=== PATIENT | female | born 1960 | race Caucasian/White ===

== ENCOUNTER → 2017-05-09 09:46 | Outpatient (CLI) | payer BC, MEDICARE, SELFPAY ==
[2017-05-09 10:09] LABS: Basophils # 0.1 K/mm3 (0-0.2); Basophils % 0.6 % (0.1-2.0); Eosinophils # 0.2 K/mm3 (0.0-0.4); Eosinophils % 1.8 % (0.1-12.0); Hematocrit 41.2 % (37.0-47.0); Hemoglobin 13.7 g/dL (12.2-16.2); Lymphocytes # 3.3 K/mm3 (0.7-4.5); Lymphocytes % 30.2 K/mm3 (10-50); Mean Corpuscular HGB Conc 33.3 g/dL (31.8-35.4); Mean Corpuscular Hemoglobin 31.1 pg (27.0-31.2); Mean Corpuscular Volume 93.6 fl (81-99); Monocytes # 0.3 K/mm3 (0.1-1.0); Monocytes % 3.1 % (1.7-9.3); Neutrophils % 64.4 % (37.0-80.0); Platelet Count 288 K/mm3 (142-424); Red Cell Distribution Width 12.1 % (11.5-17.5); White Blood Count 10.9 K/mm3 (4.8-10.8)
[2017-05-09 10:44] LABS: Hemoglobin A1C 11.6 % (0.0-7.0)
[2017-05-09 10:52] LABS: Alanine Aminotransferase 23 U/L (12-78); Albumin Level 3.7 gm/dL (3.4-5.0); Albumin/Globulin Ratio 1.3 (1.1-1.8); Alkaline Phosphatase 137 U/L (46-116); Anion Gap 13.7 mEq/L (5-15); Aspartate Amino Transferase 17 U/L (15-37); Bilirubin,Total 0.4 mg/dL (0.2-1.0); Blood Urea Nitrogen 12 mg/dL (7-18); Calcium 8.9 mg/dL (8.5-10.1); Carbon Dioxide 27 mmol/L (21.0-32.0); Chloride 100 mmol/L (98-107); Chol/HDL Ratio 2.7 (1-3.5); Cholesterol 142 mg/dL (140-200); Creatinine,Serum 0.66 mg/dL (0.55-1.02); Estimated Glomerular Filt Rate 93 ml/min (>60); GFR (African American) 112 ML/MIN (>60); Globulin 2.9 gm/dl (1.3-3.2); Glucose 266 mg/dL (74-106); HDL Cholesterol 52 mg/dL (29-89); LDL Cholesterol 59 mg/dL (0-130); Potassium 3.7 mmoL/L (3.5-5.1); Sodium 137 mmol/L (136-145); Total Protein,Serum 6.6 gm/dL (6.4-8.2); Triglycerides 155 mg/dL (30-200); VLDL Cholesterol 31 mg/dL (0-40)
== END ==
PROVIDERS: PCP Internal Medicine Adolescent Medicine; Visit Provider Internal Medicine Adolescent Medicine
DX: E78.5 Hyperlipidemia, unspecified (principal); I10 Essential (primary) hypertension; E11.9 Type 2 diabetes mellitus without complications
CPT/HCPCS: 36415; 80053; 80061; 83036; 85025

== ENCOUNTER → 2017-05-23 09:10 | Outpatient (CLI) | payer BC, MEDICARE, SELFPAY ==
--- NOTE | 2017-05-23 09:19 | US_ITS ---
US Arterial Ankle Brachial Ind INDICATION: Diabetes, smoker, hypertension, rest pain and claudication, lower extremity pain ORDERING PHYSICIAN: Tin Cutler MD PATIENT AGE: 57 years TECHNIQUE: Segmental pressures obtained of both right and left leg. These are compared to brachial blood pressure to yield index at each level sampled including summary CHE. The data sheets from the procedure are available in PACS FINDINGS Rest study only performed today No prior studies available for comparison. Blood pressures reported are in millimeters mercury. RIGHT LEG CHE = 0.8 Right TBI is 0.4. Brachial BP: 132 Thigh BP: 120 Calf BP: 140 Ankle PT: 118 Ankle DP : 121 Digit =59 LEFT LEG CHE = 0.9 Left TBI is 0.4 Brachial BPD: 144 Thigh BP: 114 Calf BP: 126 Ankle PT:129 Ankle DP: 132 Digit = 59 Pulses and waveforms: Diminished pulses with normal waveforms IMPRESSION: The right CHE is slightly low indicating mild atherosclerotic vascular disease. The right TBI is low at 0.4 indicating moderate small vessel disease Left ABIs lower limits of normal. The left TBI is low at 0.4 indicating moderate small vessel disease
== END ==
PROVIDERS: Family Provider Internal Medicine Adolescent Medicine; PCP Internal Medicine Adolescent Medicine; Visit Provider Internal Medicine Adolescent Medicine
DX: I73.9 Peripheral vascular disease, unspecified (principal)
CPT/HCPCS: 93922

== ENCOUNTER 2017-06-27 07:25 | Day surgery (SDC) | payer BC, SELFPAY ==
[2017-06-27] VITALS (13 sets, daily range): BP systolic 121–158; BP diastolic 47–85; PULSE 69–88; RESP 16–18; TEMP 36.6; O2SAT 92–97; BMI 23.3
--- NOTE | 2017-06-27 | IR_ITS ---
CARDIAC CATHETERIZATION DATE OF CATHETERIZATION:06/27/2017 8:24 AM PROCEDURES: 1. Left heart catheterization 2. Left ventriculogram 3. Selective coronary angiogram 4. Catheter placement in the left common iliac artery 5. Left common iliac artery angiogram with unilateral iliofemoral runoff to the left foot 6. Stent deployment in the distal left common iliac artery extending into the left external iliac artery 7. Post stent deployment left common and external iliac artery angiogram 8. Catheter placement in the right common iliac artery 9. Right common iliac artery unilateral angiogram with iliofemoral runoff to the right foot 10. Repositioning of the catheter in the distal abdominal aorta 11. Distal abdominal aortography INDICATION FOR TEST: 1. Angina pectoris class III and IV 2. [place] claudication class III 3. Abnormal CHE 4. Peripheral artery disease Informed consent was obtained prior to the procedure. COMPLICATIONS: None ESTIMATED BLOOD LOSS: Less than 10 ml. TECHNIQUE: One percent lidocaine used to anesthetize the right anterior aspect of the wrist. The right radial artery was accessed via the Seldinger technique. A 6 Vincentian sheath was placed in the right radial artery. 2.5 mg of verapamil, 800 mcg of nitroglycerin and 5000 U Heparin were given through the arterial sheath. The trap catheter was also used to perform left heart catheterization F ventriculogram and selective coronary angiogram. At the end of the diagnostic heart catheterization the catheter was then pulled back into the transverse aorta and a wire was advanced into the distal thoracic and abdominal aorta. A multipurpose 150 cm catheter was placed into the left common iliac artery and iliofemoral angiography was performed. An additional 2000 units of heparin was administered intravenously giving an ACT of 320 seconds. A 9 mm x 60 mm Belle pro self-expanding stent is placed in the left external iliac artery extending back into the left common iliac artery. An 8 mm x 40 mm balloon was deployed in the mid segment and proximal segment at 5 and 6 analia post dilating. Excellent angiographic results were obtained. The catheter was pulled back and distal abdominal aortography was performed. The catheter was then used to cannulate the right common iliac artery and right common iliac artery angiography with unilateral runoff to the right foot was performed. At the end of the procedure the apparatus was removed the sheath was removed good hemostasis was achieved using TR banding patient was transferred to the postop holding area in stable condition ANGIOGRAPHIC RESULTS: 1. The left main artery is normal 2. The left anterior descending artery has mild less than 10% luminal irregularities with mid vessel 20% stenoses 3. The circumflex artery is a nondominant vessel with mild 10% luminal irregularities 4. The right coronary artery is dominant and has a mid vessel 50% calcified concentric stenosis 5. The GOMEZ ventriculogram reveals normal 65% 6. The left ventricular end-diastolic pressure 10 mmHg 7. The left common iliac artery has a proximal tendon 20% stenoses with a distal 70% stenosis which extends into the proximal left external iliac artery. The left external iliac arteries distally normal. The left internal iliac artery has a proximal ostial 50-60% stenosis. The left common femoral artery is normal. The left profunda femoris artery is normal. The left superficial femoral artery has mild 10% stenoses with a 30% stenosis at the abductor canal. The left popliteal artery has mild 20% stenoses. There is three-vessel runoff below the knee on the left side\ 8. The right common iliac artery has ostial 10-20% stenoses. Very distally there is calcification which extends into the right external iliac arter
[2017-06-27 08:05] LABS: Basophils # 0.1 K/mm3 (0-0.2); Basophils % 0.6 % (0.1-2.0); Eosinophils # 0.2 K/mm3 (0.0-0.4); Eosinophils % 2.1 % (0.1-12.0); Hemoglobin 14.9 g/dL (12.2-16.2); Lymphocytes # 2.9 K/mm3 (0.7-4.5); Lymphocytes % 27.1 K/mm3 (10-50); Mean Corpuscular HGB Conc 33.2 g/dL (31.8-35.4); Mean Corpuscular Hemoglobin 31.5 pg (27.0-31.2); Mean Corpuscular Volume 95.1 fl (81-99); Mean Platelet Volume 7.3 fl (7.4-10.4); Monocytes # 0.4 K/mm3 (0.1-1.0); Monocytes % 4.1 % (1.7-9.3); Neutrophils # 7.1 K/mm3 (1.8-7.8); Neutrophils % 66.2 % (37.0-80.0); Platelet Count 335 K/mm3 (142-424); Red Blood Count 4.73 M/mm3 (4.20-5.40); White Blood Count 10.7 K/mm3 (4.8-10.8)
[2017-06-27 08:12] LABS: Anion Gap 12.9 mEq/L (5-15); Blood Urea Nitrogen 13 mg/dL (7-18); Carbon Dioxide 30 mmol/L (21.0-32.0); Chloride 100 mmol/L (98-107); Creatinine Clearance Estimated 81 mL/min (0-300); Creatinine,Serum 0.73 mg/dL (0.55-1.02); Estimated Glomerular Filt Rate 82 ml/min (>60); GFR (African American) 100 ML/MIN (>60); Glucose 205 mg/dL (74-106); Potassium 3.9 mmoL/L (3.5-5.1); Sodium 139 mmol/L (136-145)
[2017-06-27 10:52] LABS: CATHL Activated Clotting Time 320 SEC (74-125)
== END 2017-06-27 13:30 | disposition home or self-care (01) ==
LOC: CATHLAB 07:26
PROVIDERS: Family Provider Internal Medicine Adolescent Medicine; PCP Internal Medicine Adolescent Medicine; Visit Provider Internal Medicine
DX: I25.118 Atherosclerotic heart disease of native coronary artery with other forms of angina pectoris (principal); I70.223 Atherosclerosis of native arteries of extremities with rest pain, bilateral legs; I70.8 Atherosclerosis of other arteries; I10 Essential (primary) hypertension; E11.9 Type 2 diabetes mellitus without complications; Z82.49 Family history of ischemic heart disease and other diseases of the circulatory system; Z72.0 Tobacco use; I70.213 Atherosclerosis of native arteries of extremities with intermittent claudication, bilateral legs
CPT/HCPCS: 37221; 75716; 75736; 80048; 85025; 85347; 93458; 99152; 99153; C1725; C1769; C1876; J1644; Q9966; Q9967

== ENCOUNTER → 2017-07-01 09:13 | Outpatient (CLI) | payer BC, SELFPAY ==
--- NOTE | 2017-07-01 09:20 | CA_ITS ---
PROCEDURE: 2-D M-mode and color Doppler study INDICATIONS FOR THE TEST: Chest pain+ COPD Heart Murmur+ Tobacco Smoking+ Palpitations+ Fatigue+ Syncope Edema+ Hypertension+Diabetes Mellitus+ Rheumatic Fever SOB LANIER Obesity Hyperlipidemia+ Family History HD Additional History stents (legs) PATIENT INFORMATION HEIGHT: 63 WEIGHT: 131 GENDER: Female B/P: 126/52 2-D/M-MODE INTERPRETATION: 2-D MEASUREMENTS OBSERVED VALUES IN CMS Right Ventricular Dimension (RVDd) 1.2 Interventricular Septum (Thickness)(IVsd) 0.8 Left Ventricular Internal Dimensions(LVIDd) 4.2 Left Ventricular Posterior Wall (Thickness)(LVPWd) 0.8 Aortic Root 2.7 Aortic Cusp Separation 1.7 Left Atrial Dimensions (LAD) 2.9 2D 1. Left atrium is mildly enlarged, left ventricle is normal size, there is mild concentric left ventricular hypertrophy, visually estimated ejection fraction 55% with no obvious regional wall motion abnormality. 2. The right atrium and right ventricle are normal size and contractility. 3. The aortic valve is minimally thickened and fibrosed. 4. The mitral and tricuspid valve are grossly normal. 5. The pulmonic valve is poorly visualized 6. No significant pericardial effusion noted. DOPPLER INTERROGATION: Doppler interrogation of the aortic, mitral and tricuspid valvular presence of moderate aortic, mild mitral and tricuspid regurgitation, tricuspid and jet velocity insufficient for calculation of the right ventricular systolic pressure, grade 1 diastolic dysfunction seen with tissue Doppler evidence of raised left atrial pressure. CONCLUSION: 1. Mildly enlarged left atrium, normal left ventricular size, mild concentric left ventricular hypertrophy, visually estimated ejection fraction 55% with no obvious regional wall motion abnormality, grade 1 diastolic dysfunction seen with tissue Doppler evidence of raised left atrial pressure. 2. Moderate aortic, mild mitral and tricuspid regurgitation 3. No significant pericardial effusion noted.
== END ==
PROVIDERS: Family Provider Internal Medicine Adolescent Medicine; PCP Internal Medicine Adolescent Medicine; Visit Provider Internal Medicine
DX: I70.213 Atherosclerosis of native arteries of extremities with intermittent claudication, bilateral legs (principal); I65.23 Occlusion and stenosis of bilateral carotid arteries; I73.9 Peripheral vascular disease, unspecified; I20.9 Angina pectoris, unspecified
CPT/HCPCS: 93306

== ENCOUNTER → 2017-07-06 12:23 | Outpatient (CLI) | payer BC, SELFPAY ==
[2017-07-06 13:05] LABS: Anion Gap 13.6 mEq/L (5-15); Blood Urea Nitrogen 13 mg/dL (7-18); Carbon Dioxide 30 mmol/L (21.0-32.0); Chloride 101 mmol/L (98-107); Cholesterol 158 mg/dL (140-200); Creatinine,Serum 0.66 mg/dL (0.55-1.02); Estimated Glomerular Filt Rate 93 ml/min (>60); GFR (African American) 112 ML/MIN (>60); Glucose 134 mg/dL (74-106); HDL Cholesterol 40 mg/dL (29-89); LDL Cholesterol 74 mg/dL (0-130); Potassium 4.6 mmoL/L (3.5-5.1); Sodium 140 mmol/L (136-145); Triglycerides 219 mg/dL (30-200); VLDL Cholesterol 44 mg/dL (0-40)
[2017-07-06 13:25] LABS: Hemoglobin A1C 9.6 % (0.0-7.0)
== END ==
PROVIDERS: Visit Provider Internal Medicine Adolescent Medicine
DX: E11.9 Type 2 diabetes mellitus without complications (principal)
CPT/HCPCS: 36415; 80048; 80061; 83036

== ENCOUNTER → 2017-07-11 15:05 | Outpatient (CLI) | payer BC, MEDICARE, SELFPAY ==
--- NOTE | 2017-07-11 15:10 | CT_ITS ---
CT angio abdomen CLINICAL INDICATION: Abdominal pain with abdominal bruit ITS.REASON: rule out mesenteric ischemia, abdominal bruit ORDERING PHYSICIAN: Fred Yap MD PATIENT AGE: 57 years COMPARISON: None TECHNIQUE: Axial images obtained with sagittal and coronal reformats. All CT scans at the facility use one or more dose reduction, viz: automated exposure control; ma/kV adjustment per patient size (including targeted exams where dose is matched to indication; i.e. head); or iterative reconstruction technique. PROCEDURE: Oral Contrast: None IV Contrast: 100 mL of Isovue-370. FINDINGS: Angiographic findings: Atheromatous changes are present involving the abdominal aorta. No evidence of aneurysm. Moderate to high-grade stenosis involves the ostium of the celiac artery of approximately 70 % with mild poststenotic dilatation.. Severe stenosis involves the ostium of the superior mesenteric artery of 75 and 80%. Atheromatous plaque is present at the ostium of the intermesenteric artery with moderate to severe stenosis. There is a left external iliac artery stent present which is patent. Atheromatous changes along the iliac vessels which are fairly small. No obvious renal artery stenosis. No large collateral vessels are present within the mesentery's. Coronary artery calcifications are present. Nonvascular findings: The liver, spleen, right adrenal gland, and pancreas are unremarkable. There has been prior cholecystectomy with mild dilatation of the common bile duct at 9 mm which may be physiologic response to the previous cholecystectomy. There is a 1 cm nodule involving the left adrenal gland nonspecific. No intestinal obstruction or free air. No focal inflammatory change. The pelvis is not completely imaged. There is a moderate amount retained colonic feces. 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 There is an estimated 70% stenosis of the proximal celiac with poststenotic dilatation, and 75-80% stenosis of the ostium of the superior mesenteric artery.
== END ==
PROVIDERS: Family Provider Internal Medicine Adolescent Medicine; PCP Internal Medicine Adolescent Medicine; Visit Provider Internal Medicine
DX: R09.89 Other specified symptoms and signs involving the circulatory and respiratory systems (principal); I70.1 Atherosclerosis of renal artery; R63.4 Abnormal weight loss; I73.9 Peripheral vascular disease, unspecified; Z72.0 Tobacco use; I10 Essential (primary) hypertension; E78.4 Other hyperlipidemia; E11.9 Type 2 diabetes mellitus without complications
CPT/HCPCS: 74175; Q9967

== ENCOUNTER → 2017-12-26 13:52 | Outpatient (CLI) | payer BC, MEDICARE, SELFPAY ==
--- NOTE | 2017-12-26 13:57 | CA_ITS ---
PROCEDURE: 2-D M-mode and color Doppler study INDICATIONS FOR THE TEST: Chest pain COPD Heart Murmur Tobacco Smoking Palpitations Fatigue Syncope Edema+ Hypertension Diabetes Mellitus Rheumatic Fever SOB [place] Obesity Hyperlipidemia Family History HD Additional History PATIENT INFORMATION HEIGHT: 63 WEIGHT:134 GENDER: Female B/P:115/52 2-D/M-MODE INTERPRETATION: 2-D MEASUREMENTS OBSERVED VALUES IN CMS Right Ventricular Dimension (RVDd) 1.3 Interventricular Septum (Thickness)(IVsd) 0.7 Left Ventricular Internal Dimensions(LVIDd) 5.0 Left Ventricular Posterior Wall (Thickness)(LVPWd) 0.7 Aortic Root 2.6 Aortic Cusp Separation 1.6 Left Atrial Dimensions (LAD) 3.3 2D 1. Left atrium is qualitatively mildly enlarged, left ventricle is normal size, there is no concentric left ventricular hypertrophy present, visually estimated ejection fraction 55% with no regional wall motion abnormality. 2. The right atrium and right ventricle are normal size and contractility. 3. The aortic valve is thickened and calcified leaflet continue to display mobility. 4. The mitral and tricuspid valve are structurally normal. 5. The pulmonic valve is poorly visualized. 6. No significant pericardial effusion noted. DOPPLER INTERROGATION: Doppler interrogation of the aortic, mitral and tricuspid valvular presence of severe aortic, mild mitral and tricuspid regurgitation, tricuspid regurgitant jet velocity is insufficient for calculation of the right ventricular systolic pressure, diastolic parameters are inconclusive. CONCLUSION: 1. Mildly enlarged left atrium, normal left ventricular size, visually estimated ejection fraction 55% with no regional wall motion abnormality, diastolic parameters are inconclusive. 2. Thickened and calcified aortic valve without Doppler evidence of aortic stenosis there is likely severe aortic insufficiency, if clinically indicated transesophageal echocardiogram is recommended. 3. Mild mitral and tricuspid regurgitation 4. No significant pericardial effusion noted.
== END ==
PROVIDERS: Family Provider Internal Medicine Adolescent Medicine; PCP Internal Medicine Adolescent Medicine; Visit Provider Internal Medicine
DX: E11.9 Type 2 diabetes mellitus without complications (principal); E78.5 Hyperlipidemia, unspecified; I10 Essential (primary) hypertension; I25.10 Atherosclerotic heart disease of native coronary artery without angina pectoris; I35.1 Nonrheumatic aortic (valve) insufficiency; I70.1 Atherosclerosis of renal artery; I73.9 Peripheral vascular disease, unspecified; I77.4 Celiac artery compression syndrome; R00.0 Tachycardia, unspecified; R00.2 Palpitations; R09.89 Other specified symptoms and signs involving the circulatory and respiratory systems; R10.9 Unspecified abdominal pain; Z72.0 Tobacco use
CPT/HCPCS: 93306

== ENCOUNTER → 2018-06-27 16:01 | Outpatient (CLI) | payer MEDICARE, BC, SELFPAY ==
[2018-06-27 17:52] LABS: Hemoglobin A1C 6.5 % (0.0-7.0)
[2018-06-27 20:30] LABS: Alanine Aminotransferase 25 U/L (12-78); Albumin Level 4.4 gm/dL (3.4-5.0); Albumin/Globulin Ratio 1.5 (1.1-1.8); Alkaline Phosphatase 103 U/L (46-116); Aspartate Amino Transferase 17 U/L (15-37); Bilirubin,Total 0.4 mg/dL (0.2-1.0); Blood Urea Nitrogen 13 mg/dL (7-18); Calcium 9.1 mg/dL (8.5-10.1); Carbon Dioxide 26 mmol/L (21.0-32.0); Chloride 100 mmol/L (98-107); Chol/HDL Ratio 3.4 (1-3.5); Cholesterol 154 mg/dL (140-200); Creatinine,Serum 0.94 mg/dL (0.55-1.02); Estimated Glomerular Filt Rate 61 ml/min (>60); GFR (African American) 74 ML/MIN (>60); Glucose 93 mg/dL (74-106); HDL Cholesterol 45 mg/dL (29-89); LDL Cholesterol 73 mg/dL (0-130); Sodium 137 mmol/L (136-145); Total Protein,Serum 7.4 gm/dL (6.4-8.2); Triglycerides 180 mg/dL (30-200); VLDL Cholesterol 36 mg/dL (0-40)
== END ==
PROVIDERS: Visit Provider Internal Medicine Adolescent Medicine
DX: E11.9 Type 2 diabetes mellitus without complications (principal); I10 Essential (primary) hypertension; Z79.84 Long term (current) use of oral hypoglycemic drugs; F17.210 Nicotine dependence, cigarettes, uncomplicated
CPT/HCPCS: 36415; 80053; 80061; 83036

== ENCOUNTER → 2018-07-17 07:58 | Outpatient (CLI) | payer MEDICARE, BC, SELFPAY ==
--- NOTE | 2018-07-17 08:00 | CA_ITS ---
PROCEDURE: 2-D M-mode and color Doppler study INDICATIONS FOR THE TEST: Chest painX COPD Heart MurmurX Tobacco SmokingX PalpitationsX Fatigue Syncope Edema HypertensionXDiabetes MellitusX Rheumatic Fever SOB [place] Obesity HyperlipidemiaX Family History HD Additional History REILLY DONE 01/12/18 PATIENT INFORMATION HEIGHT: 63 WEIGHT:134 GENDER: Female B/P:139/65 2-D/M-MODE INTERPRETATION: 2-D MEASUREMENTS OBSERVED VALUES IN CMS Right Ventricular Dimension (RVDd) 1.4 Interventricular Septum (Thickness)(IVsd) .7 Left Ventricular Internal Dimensions(LVIDd) 5.1 Left Ventricular Posterior Wall (Thickness)(LVPWd) .9 Aortic Root 3.2 Aortic Cusp Separation 1.7 Left Atrial Dimensions (LAD) 2.8 2D 1. Left atrium is mildly enlarged, left ventricle is normal size, left ventricle wall thickness is upper normal, there is preserved left ventricular systolic function, visually estimated ejection fraction 55% with no regional wall motion abnormality. 2. The right atrium and right ventricle are normal size and contractility. 3. The aortic valve is trileaflet thickened and calcified leaflet continue to display mobility. 4. The mitral and tricuspid valvular grossly normal. 5. The pulmonic valve is poorly visualized. 6. No significant pericardial effusion noted. DOPPLER INTERROGATION: Doppler interrogation of the aortic, mitral and tricuspid valvular presence of moderate aortic, mild mitral and tricuspid regurgitation, tricuspid regurgitation jet velocity is inadequate for calculation of the right ventricular systolic pressure, grade 1 diastolic dysfunction seen without tissue Doppler evidence of raised left atrial pressure. CONCLUSION: 1. Mildly enlarged left atrium, normal left ventricular size, preserved left ventricular systolic function, visually estimated ejection fraction 55% with no regional wall motion abnormality, grade 1 diastolic dysfunction seen without tissue Doppler evidence of raised left atrial pressure. 2. Moderate aortic, mild mitral and tricuspid regurgitation 3. No significant pericardial effusion noted.
== END ==
PROVIDERS: PCP Internal Medicine Adolescent Medicine; Visit Provider Internal Medicine
DX: E11.9 Type 2 diabetes mellitus without complications (principal); I10 Essential (primary) hypertension; I20.8 Other forms of angina pectoris; I35.1 Nonrheumatic aortic (valve) insufficiency; I70.1 Atherosclerosis of renal artery; I73.9 Peripheral vascular disease, unspecified; I77.4 Celiac artery compression syndrome; R00.2 Palpitations; Z72.0 Tobacco use; E78.49 Other hyperlipidemia; Z79.84 Long term (current) use of oral hypoglycemic drugs
CPT/HCPCS: 93306

== ENCOUNTER → 2018-08-01 12:24 | Outpatient (CLI) | payer MEDICARE, BC, SELFPAY ==
--- NOTE | 2018-08-01 12:26 | CI_ITS ---
Cerebrovascular Exam Indications: 785.9 Bruit. IMPRESSIONS 1. The bilateral vertebral arteries are patent with normal antegrade flow. 2. Study suggests 70-99% stenosis involving the right internal carotid artery. 3. Study suggests 50-69% stenosis involving the left internal carotid artery. History: Risk factors: Hypertension. Hyperlipidemia. Carotid duplex study. Complete study and Doppler flow study including spectral analysis, color and anton scale imaging. Height: Height: 160cm. Height: 63in. Weight: Weight: 61.2kg. Weight: 134.7lb. Body mass index: BMI: 23.9kg/m^2. Body surface area: BSA: 1.66m^2. Location: Vascular laboratory. Patient status: Outpatient. CRITICAL FINDINGS - Reported to: Tasha Coelho - 08/01/2018 - 13:00 - 70-99% stenosis ANDRAE. Tables: Arterial flow: + +--------+--------+ Location V sys V ed + +--------+--------+ Right CCA - proximal 133cm/s 33.8cm/s + +--------+--------+ Right CCA - distal 107cm/s 22.8cm/s + +--------+--------+ Right ECA 193cm/s 15.7cm/s + +--------+--------+ Right ICA - proximal 361cm/s 103cm/s + +--------+--------+ Right ICA - mid 250cm/s 64.6cm/s + +--------+--------+ Right ICA - distal 187cm/s 57.6cm/s + +--------+--------+ Right vertebral 75.4cm/s 22.8cm/s + +--------+--------+ Left CCA - proximal 131cm/s 32.2cm/s + +--------+--------+ Left CCA - distal 156cm/s 34.6cm/s + +--------+--------+ Left ECA 301cm/s 33cm/s + +--------+--------+ Left ICA - proximal 332cm/s 72cm/s + +--------+--------+ Left ICA - mid 168cm/s 42.3cm/s + +--------+--------+ Left ICA - distal 81.9cm/s 30cm/s + +--------+--------+ Left vertebral 48.3cm/s 15.5cm/s + +--------+--------+ Velocity ratios: + + + + + + Right, V sys Right, V ed Left, V sys Left, V ed + + + + + + Max ICA/dist CCA 3.37 4.52 2.13 2.08 + + + + + + (Report amended ) Electronically signed by: Daniele Ocampo [id number]
== END ==
PROVIDERS: PCP Internal Medicine Adolescent Medicine; Visit Provider Nurse Practitioner Family
DX: R09.89 Other specified symptoms and signs involving the circulatory and respiratory systems (principal); I65.23 Occlusion and stenosis of bilateral carotid arteries
CPT/HCPCS: 93880

== ENCOUNTER 2018-08-04 08:11 | Day surgery (SDC) | payer MEDICARE, BC, SELFPAY ==
[2018-08-04] VITALS (15 sets, daily range): BP systolic 105–145; BP diastolic 46–73; PULSE 73–83; RESP 12–18; TEMP 36.9; O2SAT 93–99; BMI 23.9
--- NOTE | 2018-08-04 08:30 | IR_ITS ---
CARDIAC CATHETERIZATION DATE OF CATHETERIZATION:08/04/2018 10:55 AM PROCEDURES: Left heart catheterization Left ventriculogram Selective coronary angiographic Catheter placement in the right vertebral artery Right vertebral artery angiogram Catheter placement in the right common carotid artery Right internal carotid artery angiogram Right internal carotid artery intracerebral angiogram Catheter placement in the left common carotid artery Left internal carotid artery angiogram Left internal carotid artery intracerebral angiogram INDICATION FOR TEST: 1. Critical right internal carotid artery stenosis 2. Preoperative evaluation for carotid endarterectomy 3. Coronary artery disease 4. Angina pectoris Informed consent was obtained prior to the procedure. COMPLICATIONS: None ESTIMATED BLOOD LOSS: Less than 10 ml. TECHNIQUE: One percent lidocaine was used to anesthetize the right groin. The right femoral artery was accessed via the Seldinger technique. A 4-[place]izen [place] sheath was placed in the right femoral artery. A JL 4 JR4 catheter were used to perform left heart catheterization left ventriculogram and selective coronary angiogram. The JR4 catheter was used to cannulate each of the vertebral arteries and perform antegrade angiography. The same JR4 catheter was used to cannulate each carotid artery and perform internal carotid artery angiography as well as intracerebral carotid angiography. At the end of procedure the apparatus was removed the sheath was removed good hemostasis was achieved using manual pressure patient transferred the postop holding are stable condition ANGIOGRAPHIC RESULTS: The left main artery is normal The left anterior descending artery is normal in the proximal segment with mid vessel 30% stenoses along tortuous bend There is a nondominant vessel with very proximal 20-30% stenosis. The second obtuse marginal artery has proximal 40% stenosis There is a dominant vessel although small caliber. Proximally there are 20% stenoses within mid vessel 40-50% stenosis. The GOMEZ ventriculogram reveals normal ejection fraction estimated at 65% The left ventricular end-diastolic pressure is 10 mmHg The right vertebral artery is widely patent free of atherosclerosis and fuses into the basilar artery. The left vertebral artery is widely patent free of atherosclerotic disease and fuses into the basilar artery The right common carotid artery is widely patent as is the right external carotid artery The right internal carotid artery has a focal greater than 90% stenosis followed by 40% stenosis The right internal carotid artery cerebral angiogram demonstrates no atheromatous plaque or aneurysmal dilatation with normal venous drainage The left common carotid artery is widely patent as is the left external carotid artery The left internal carotid artery has 50% proximal very eccentric stenosis followed by a distal 40% stenosis The left internal carotid artery intracerebral angiogram demonstrates no atheromatous plaque or aneurysmal dilatation with normal venous drainage IMPRESSION: 1. Moderate coronary artery disease involving the right coronary artery as described above 2. Normal ejection fraction 3. Normal left ventricular end-diastolic pressure 4. Severe right internal carotid artery stenosis as described above 5. Moderate left internal carotid artery stenosis as described above 6. Note intracerebral atheromatous plaque or aneurysmal dilatation with normal venous drainage PLAN: Patient will be referred for surgical evaluation of carotid endarterectomy LDL less than 55 Patient is a low and acceptable risk from a cardiac standpoint to proceed with surgical carotid endarterectomy Avoidance of tobacco products Aggressive risk factor modification
[2018-08-04 09:01] LABS: Anion Gap 11.4 mEq/L (5-15); Blood Urea Nitrogen 13 mg/dL (7-18); Carbon Dioxide 28 mmol/L (21.0-32.0); Chloride 102 mmol/L (98-107); Creatinine Clearance Estimated 71 mL/min (50-200); Creatinine,Serum 0.84 mg/dL (0.55-1.02); Estimated Glomerular Filt Rate 70 ml/min (>60); GFR (African American) 85 ML/MIN (>60); Glucose 131 mg/dL (74-106); Potassium 4.4 mmoL/L (3.5-5.1); Sodium 137 mmol/L (136-145)
[2018-08-04 09:07] LABS: Basophils # 0.1 K/mm3 (0-0.2); Basophils % 0.8 % (0.1-2.0); Eosinophils # 0.2 K/mm3 (0.0-0.4); Eosinophils % 1.5 % (0.1-12.0); Hematocrit 39.3 % (37.0-47.0); Hemoglobin 13.1 g/dL (12.2-16.2); Lymphocytes # 3.8 K/mm3 (0.7-4.5); Lymphocytes % 34.7 % (10-50); Mean Corpuscular HGB Conc 33.4 g/dL (31.8-35.4); Mean Corpuscular Hemoglobin 31.2 pg (27.0-31.2); Mean Corpuscular Volume 93.3 fl (81-99); Mean Platelet Volume 6.8 fl (7.4-10.4); Monocytes # 0.5 K/mm3 (0.1-1.0); Monocytes % 4.3 % (1.7-9.3); Neutrophils # 6.4 K/mm3 (1.8-7.8); Neutrophils % 58.7 % (37.0-80.0); Platelet Count 298 K/mm3 (142-424); Red Cell Distribution Width 12.5 % (11.5-17.5); White Blood Count 10.9 K/mm3 (4.8-10.8)
== END 2018-08-04 14:06 | disposition home or self-care (01) ==
LOC: CATHLAB 08:13
PROVIDERS: PCP Internal Medicine Adolescent Medicine; Visit Provider Internal Medicine
DX: I65.23 Occlusion and stenosis of bilateral carotid arteries (principal); I25.118 Atherosclerotic heart disease of native coronary artery with other forms of angina pectoris; I11.0 Hypertensive heart disease with heart failure; I50.30 Unspecified diastolic (congestive) heart failure; Z72.0 Tobacco use; Z88.8 Allergy status to other drugs, medicaments and biological substances; Z82.49 Family history of ischemic heart disease and other diseases of the circulatory system; Z95.828 Presence of other vascular implants and grafts; I35.1 Nonrheumatic aortic (valve) insufficiency; I77.4 Celiac artery compression syndrome; E11.9 Type 2 diabetes mellitus without complications; Z79.84 Long term (current) use of oral hypoglycemic drugs; Z79.82 Long term (current) use of aspirin; Z79.899 Other long term (current) drug therapy
CPT/HCPCS: 36224; 36226; 80048; 85025; 93458; 99152; C1725; C1769; J1644; Q9967

== ENCOUNTER → 2018-10-24 09:22 | Outpatient (CLI) | payer MEDICARE, BC, SELFPAY ==
[2018-10-24 10:29] LABS: Alanine Aminotransferase 33 U/L (12-78); Albumin Level 3.8 gm/dL (3.4-5.0); Albumin/Globulin Ratio 1.2 (1.1-1.8); Alkaline Phosphatase 105 U/L (46-116); Anion Gap 10.8 mEq/L (5-15); Aspartate Amino Transferase 21 U/L (15-37); Bilirubin,Total 0.3 mg/dL (0.2-1.0); Blood Urea Nitrogen 13 mg/dL (7-18); Calcium 8.9 mg/dL (8.5-10.1); Carbon Dioxide 33 mmol/L (21.0-32.0); Chloride 99 mmol/L (98-107); Creatinine,Serum 0.92 mg/dL (0.55-1.02); Estimated Glomerular Filt Rate 63 ml/min (>60); GFR (African American) 76 ML/MIN (>60); Globulin 3.1 gm/dl (1.3-3.2); Glucose 115 mg/dL (74-106); Potassium 4.8 mmoL/L (3.5-5.1); Sodium 138 mmol/L (136-145); Total Protein,Serum 6.9 gm/dL (6.4-8.2)
[2018-10-24 11:59] LABS: Hemoglobin A1C 7.1 % (0.0-7.0)
== END ==
PROVIDERS: Visit Provider Internal Medicine Adolescent Medicine
DX: E11.9 Type 2 diabetes mellitus without complications (principal); Z79.84 Long term (current) use of oral hypoglycemic drugs
CPT/HCPCS: 36415; 80053; 83036; 84443

== ENCOUNTER → 2019-02-09 07:39 | Outpatient (CLI) | payer MEDICARE, BC, SELFPAY ==
--- NOTE | 2019-02-09 07:54 | CA_ITS ---
APPROVED REPORT Drapery Counselor: Natali Ibanez RVT Laterality: Bilateral Study Quality: Good Indications: Carotid stenosis Risk Factors Hypertension: Diabetes Surgery/Intervention Endarterectomy: right Doppler Spectral Velocity Analysis ECA (R) 169.00/22.60 cm/s ECA (L) 122.00/14.10 cm/s dICA (R) 124.00/32.30 cm/s dICA (L) 132.00/39.40 cm/s Oni (R) 135.00/27.50 cm/s Oni (L) 178.00/37.00 cm/s pICA (R) 145.00/29.90 cm/s pICA (L) 233.00/39.40 cm/s dCCA (R) 72.30/20.40 cm/s dCCA (L) 114.00/23.30 cm/s pCCA (R) 73.10/22.00 cm/s pCCA (L) 111.00/19.10 cm/s Vert (R) 71.10/13.70 cm/s Vert (L) 33.30/9.53 cm/s ICA/CCA 2.00 ICA/CCA 2.04 Findings Study suggests no stenosis of the right internal carotid artery, improved since recent right endardectomy. Study suggests 50-69% stenosis of the left internal carotid artery, unchanged from prior study 08/01/18. Antegrade flow seen bilateral vertebral arteries. Conclusion Study suggests no stenosis of the right internal carotid artery, improved since recent right endardectomy. Study suggests 50-69% stenosis of the left internal carotid artery, unchanged from prior study 08/01/18. Antegrade flow seen bilateral vertebral arteries. Electronically signed by : Daniele Ocampo MD 02/09/2019 18:02:11
== END ==
PROVIDERS: PCP Internal Medicine Adolescent Medicine; Visit Provider Urology
DX: R09.89 Other specified symptoms and signs involving the circulatory and respiratory systems (principal)
CPT/HCPCS: 93880

== ENCOUNTER → 2019-02-26 09:51 | Outpatient (CLI) | payer MEDICARE, BC, SELFPAY ==
[2019-02-26 11:07] LABS: Hemoglobin A1C 6.7 % (0.0-7.0)
[2019-02-26 12:09] LABS: Alanine Aminotransferase 17 U/L (12-78); Albumin Level 4.1 gm/dL (3.4-5.0); Albumin/Globulin Ratio 1.3 (1.1-1.8); Alkaline Phosphatase 82 U/L (46-116); Anion Gap 12.7 mEq/L (5-15); Aspartate Amino Transferase 17 U/L (15-37); Bilirubin,Total 0.3 mg/dL (0.2-1.0); Blood Urea Nitrogen 7 mg/dL (7-18); Calcium 9.3 mg/dL (8.5-10.1); Carbon Dioxide 29 mmol/L (21.0-32.0); Chloride 100 mmol/L (98-107); Creatinine,Serum 0.97 mg/dL (0.55-1.02); Estimated Glomerular Filt Rate 59 ml/min (>60); GFR (African American) 71 ML/MIN (>60); Globulin 3.1 gm/dl (1.3-3.2); Glucose 120 mg/dL (74-106); Potassium 4.7 mmoL/L (3.5-5.1); Sodium 137 mmol/L (136-145); Thyroid Stimulating Hormone 2.21 uIU/ml (0.358-3.740); Total Protein,Serum 7.2 gm/dL (6.4-8.2)
== END ==
PROVIDERS: Visit Provider Internal Medicine Adolescent Medicine
DX: I10 Essential (primary) hypertension (principal); Z79.899 Other long term (current) drug therapy
CPT/HCPCS: 36415; 80053; 83036; 84443

== ENCOUNTER → 2019-04-30 15:08 | Outpatient (CLI) | payer MEDICARE, BC, SELFPAY ==
--- NOTE | 2019-04-30 15:10 | MR_ITS ---
PROCEDURE: MR THORACIC SPINE WO CON CLINICAL INDICATION: LUMBAGO WITH SCIATICA, THORACIC SPINE PAIN Thoracic pain COMPARISON: No exams were available for comparisonRoutine multiplanar multi echo sequences are performed without gadolinium enhancement. FINDINGS: There is normal alignment. No acute fracture or dislocation. No bone marrow edema. Minimal bulging disc noted at T2-T3, T4-T5 T6-T7 and T10-T11. Bulging disc at T10-T11 is slightly eccentric to the right. There is mild multilevel disc desiccation with degenerative disc disease at T10-T11. No disc herniation canal stenosis or other significant anomaly is evident. IMPRESSION: Mild degenerative changes. No disc herniation or canal stenosis. Please see above for detail Dictated by: Daniele Ocampo MD 05/01/2019 12:40 Electronically signed by Daniele Ocampo MD in [place] 05/01/2019 12:40
--- NOTE | 2019-04-30 15:10 | MR_ITS ---
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 3-D MIP and myelographic images are also rendered and reviewed FINDINGS: There is normal alignment. The spinal cord ends at the T11-T12 region. There is degenerative disc disease at T10-T11. T11-T12: Unremarkable. T12-L1: Mild disc desiccation. L1-L2, L2-L3, L3-L4, and L4-5 have an unremarkable appearance. Mild degenerative disc disease at L5-S1 with minimal bulging disc. No disc herniation or canal stenosis with no significant change compared to the previous exam. IMPRESSION: Mild degenerative changes as described above. No canal stenosis or disc herniation with no significant change from the previous exam the Dictated by: Daniele Ocampo MD 05/01/2019 12:33 Electronically signed by Daniele Ocampo MD in [place] 05/01/2019 12:33
== END ==
PROVIDERS: PCP Internal Medicine Adolescent Medicine; Visit Provider Nurse Practitioner Family
DX: M54.42 Lumbago with sciatica, left side (principal); M54.41 Lumbago with sciatica, right side; M54.6 Pain in thoracic spine; G89.29 Other chronic pain; R29.898 Other symptoms and signs involving the musculoskeletal system; R29.6 Repeated falls
CPT/HCPCS: 72146; 72148; 76376

== ENCOUNTER → 2019-05-04 11:05 | Outpatient (CLI) | payer MEDICARE, BC, SELFPAY ==
[2019-05-04 13:30] LABS: Blood Urea Nitrogen 11 mg/dL (7-18); Creatinine,Serum 1.06 mg/dL (0.55-1.02); Estimated Glomerular Filt Rate 53 ml/min (>60); GFR (African American) 64 ML/MIN (>60)
== END ==
PROVIDERS: Visit Provider Nurse Practitioner Family
DX: E11.9 Type 2 diabetes mellitus without complications (principal); Z79.84 Long term (current) use of oral hypoglycemic drugs
CPT/HCPCS: 36415; 82565; 84520

== ENCOUNTER → 2019-05-07 10:03 | Outpatient (CLI) | payer MEDICARE, BC, SELFPAY ==
--- NOTE | 2019-05-07 10:06 | MR_ITS ---
PROCEDURE: MR HEAD/BRAIN WO/W CON CLINICAL INDICATION: WEAKNESS BOTH LEGS, MULTIPLE FALLS, PARESTHESIA COMPARISON: No exams were available for comparison TECHNIQUE: Routine multiplanar multisequence exam with without contrast was performed. 13 milliliters ProHance contrast administration was given FINDINGS: There are nonspecific scattered FLAIR/T2 hyperintensities nonenhancing in the bilateral cerebral white matter. Differential considerations would include small ambulatory care nurse vessel ischemic gliotic disease, demyelinating process such as multiple sclerosis, association with migraine headaches, or idiopathic cause. Normal flow voids are seen in both carotid arteries and in the basilar artery. There is no acute infarction intracranial hemorrhage mass mass effect extra-axial fluid collection or abnormal enhancement. There is nonspecific leftward deviation of the pituitary infundibulum. There is no pituitary lesion evident. Paranasal sinuses and mastoid air cells are normally aerated. For which mild old to moderate small ambulatory care nurse vessel ischemic gliotic disease is suspected. IMPRESSION: Numerous nonenhancing FLAIR/T2 hyperintensities bilateral cerebral white matter. Differential possibilities are described. Microvascular disease is favored. Dictated by: Wes Shaw 05/07/2019 13:13 Electronically signed by Wes Shaw in [place] 05/07/2019 13:13
--- NOTE | 2019-05-07 11:13 | HMH.ITSHM ---
Current Home Medications as stated by this patient Dilia Chester or hospital sales representative. []JANUVIA METFORMIN TRULICITY GABAPENTIN REQUIP ATORVASTATIN ASPIRIN LOSARTIN PLAVIX TRAZODONE CARVEDILOL HYDROCHLOROTHIAZIDE LINZESS OMEPRAZOLE ALBUTEROL BENADRYL FENTANYL PATCH
== END ==
PROVIDERS: PCP Internal Medicine Adolescent Medicine; Visit Provider Nurse Practitioner Family
DX: R29.898 Other symptoms and signs involving the musculoskeletal system (principal); R29.6 Repeated falls; R20.2 Paresthesia of skin
CPT/HCPCS: 70553; A9576

== ENCOUNTER → 2019-05-10 10:16 | Outpatient (CLI) | payer MEDICARE, BC, SELFPAY ==
--- NOTE | 2019-05-10 10:16 | US_ITS ---
APPROVED REPORT Exam Type: Lower Extremity Segmental Pressures Wiring Inspector: Sravani Aldana RDCS Indications Claudication: Rest Pain: PAD History of Smoking CAD STENTS IN LEFT LEG Pressures/Indices Right Indices Left Indices Brachial 151.00 mmHg Brachial 148.00 mmHg Low Thigh 124.00 mmHg 0.82 Low Thigh 143.00 mmHg 0.95 Calf 106.00 mmHg 0.70 Calf 124.00 mmHg 0.82 Ankle(PT) 102.00 mmHg 0.68 Ankle(PT) 128.00 mmHg 0.85 Ankle(DP) 88.00 mmHg 0.58 Ankle(DP) 95.00 mmHg 0.63 Digit 85.00 mmHg 0.56 Digit 80.00 mmHg 0.53 Post Exercise Pressures/Indices Right Left 0.70 CHE 0.90 Findings R CHE .7 R TBI .6 L CHE .9 L TBI .5 DIMINISHED PULSES DORSALIS PEDIS BILATERALLY WITH DIMINISHED WAVE FORM RIGHT DORSALIS PEDIS Conclusion R CHE .7 R TBI .6 L CHE .9 L TBI .5 DIMINISHED PULSES DORSALIS PEDIS BILATERALLY WITH DIMINISHED WAVE FORM RIGHT DORSALIS PEDIS Electronically signed by : Wes Shaw, 05/10/2019 18:18:25
--- NOTE | 2019-05-10 10:16 | CT_ITS ---
Procedure: CT ANGIO ABDOMEN CLINICAL HISTORY: celiac stent, due f/u COMPARISON: No exams were available for comparison TECHNIQUE: IV Contrast: 100ml Optiray 350 Axial images obtained with sagittal and coronal reformats. 3D reconstruction images were performed. All CT scans at the facility use one or more dose reduction, viz: automated exposure control, ma/kV adjustment per patient size (including targeted exams where dose is matched to indication, i.e. head), or iterative reconstruction technique. FINDINGS: There is widespread atherosclerotic disease. Multiple calcified atherosclerotic plaques are seen in the abdominal aorta iliac and mesenteric vessels. There is no evidence of abdominal aortic aneurysm or dissection. Widely patent single bilateral renal arteries are noted. There has been placement of celiac artery, superior mesenteric artery, and left common iliac-external iliac artery stent. The stents appear patent and there is good flow in the vessels distal to the stents. Decreased patency of the left common iliac artery proximal to the stent is noted with possibly hemodynamically significant to 50-75 percent stenosis. Less than 50 percent stenosis of the right common iliac artery is noted. Lung bases are clear. There is fatty infiltration of the liver status post cholecystectomy. There is a left adrenal gland nodule 1.2 centimeters. An incidental adenoma would be statistically most likely. A subcentimeter cortical cyst of the posterior cortex of the right kidney is noted. Heterogeneous enhancement pattern of the spleen is consistent with vascular perfusion phenomenon. Multiple nonspecific fluid-filled loops of small and large intestine are noted with no evidence of bowel obstruction. IMPRESSION: Patent celiac, superior mesenteric artery, and left iliac arterial stents. Short segment of stenosis of left common iliac artery proximal to the stent 50-75 percent. Dictated by: Wes Shaw 05/10/2019 13:56 Electronically signed by Wes Shaw in [facility] 05/10/2019 13:56
== END ==
PROVIDERS: PCP Internal Medicine Adolescent Medicine; Visit Provider Urology
DX: I73.9 Peripheral vascular disease, unspecified (principal); I25.10 Atherosclerotic heart disease of native coronary artery without angina pectoris; I77.4 Celiac artery compression syndrome
CPT/HCPCS: 74175; 93923; Q9967

== ENCOUNTER → 2019-10-05 10:20 | Outpatient (CLI) | payer MEDICARE, BC, SELFPAY ==
[2019-10-05 10:45] LABS: Basophils % 0.6 % (0.1-2.0); Eosinophils # 0.1 K/mm3 (0.0-0.4); Eosinophils % 1.3 % (0.1-12.0); Hematocrit 35.5 % (37.0-47.0); Lymphocytes # 2.1 K/mm3 (0.7-4.5); Lymphocytes % 27.2 % (10-50); Mean Corpuscular HGB Conc 33.8 g/dL (31.8-35.4); Mean Corpuscular Hemoglobin 31.4 pg (27.0-31.2); Mean Corpuscular Volume 92.8 fl (81-99); Mean Platelet Volume 7.5 fl (7.4-10.4); Monocytes # 0.3 K/mm3 (0.1-1.0); Monocytes % 3.9 % (1.7-9.3); Neutrophils # 5.3 K/mm3 (1.8-7.8); Neutrophils % 67.1 % (37.0-80.0); Platelet Count 289 K/mm3 (142-424); Red Blood Count 3.83 M/mm3 (4.20-5.40); Red Cell Distribution Width 12.6 % (11.5-17.5); White Blood Count 7.8 K/mm3 (4.8-10.8)
[2019-10-05 11:21] LABS: Hemoglobin A1C 6.8 % (4.0-6.0)
[2019-10-05 11:32] LABS: Alanine Aminotransferase 13 U/L (12-78); Albumin Level 4.9 g/dl (3.5-5.0); Albumin/Globulin Ratio 1.8 (1.1-1.8); Alkaline Phosphatase 86 U/L (38-126); Anion Gap 12.5 mEq/L (5-15); Aspartate Amino Transferase 25 U/L (14-36); Bilirubin,Total 0.5 mg/dl (0.2-1.3); Blood Urea Nitrogen 17 mg/dl (7-17); Calcium 10.2 mg/dl (8.4-10.2); Carbon Dioxide 36 mmol/L (22.0-30.0); Chloride 90 mmol/L (98-107); Chol/HDL Ratio 2.5 (1-3.5); Cholesterol 168 mg/dl (140-200); Estimated Glomerular Filt Rate 57 ml/min (>60); GFR (African American) 69 ML/MIN (>60); Globulin 2.7 g/dL (1.3-3.2); Glucose 131 mg/dl (74-100); HDL Cholesterol 68 mg/dl (40-60); Potassium 5.5 mmoL/L (3.5-5.1); Sodium 133 mmol/L (136-145); Total Protein,Serum 7.6 g/dl (6.3-8.2); Triglycerides 199 mg/dl (30-150); VLDL Cholesterol 40 mg/dL (0-40)
[2019-10-05 11:43] LABS: Direct LDL Cholesterol 76.38 mg/dL (100-129)
== END ==
PROVIDERS: Visit Provider Nurse Practitioner Family
DX: I25.10 Atherosclerotic heart disease of native coronary artery without angina pectoris (principal); I10 Essential (primary) hypertension; R82.90 Unspecified abnormal findings in urine; E11.9 Type 2 diabetes mellitus without complications; Z79.84 Long term (current) use of oral hypoglycemic drugs
CPT/HCPCS: 36415; 80053; 80061; 83036; 85025

== ENCOUNTER 2019-10-19 14:00 | Outpatient (RCR) | payer MEDICARE, BC, SELFPAY ==
--- NOTE | 2019-10-10 13:53 | HMH.PTOPEV ---
PT Outpatient Evaluation Rehab PT Outpatient Evaluation Start: 10/10/19 13:03 Freq: Status: Active Protocol: Document 10/10/19 13:34 MERCEDEZMARIKA (Rec: 10/10/19 13:52 CHIP [id number]) Electronically Signed By Juanito Ellsworth, PT 10/10/19 13:34 Outpatient Therapy Subjective History Subjective History Patient is a 59 year old female presenting to outpatient PT with reports of chronic LBP with BLE radicular symptoms to B ankles. Most recent imaging indicates mild DDD and minimal bulging at L5/ S1. Pt reports intermittent BLE radicular symptoms to B ankles. Pt reports hx of LBP for approx 10 years. Special tests indicate R anterior roatation of the innominant. Comorbidities include diabetes , HTN, HL, RLS, Fibromyalgia, OA and CV stents x 3. Chief Complaint Pain,Stiff,Paresthesia, Weakness Symptom Type Ache,Sharp,Burning Symptoms Relieved By Rest/Positioning,Prescription Meds Symptoms Aggravated By Standing,Physical Activity, Walking,Lifting Prior Functional Limitations Lifting,Housework,Sleeping, Standing,Recreation Activity, Walking,Bending/Stooping Current Functional Limitations Lifting,Housework,Sleeping, Standing,Recreation Activity, Walking,Bending/Stooping Symptom Description Constant but Variable Level of pain today (0-10) 6 Pain scale - at its best (0-10) 4 Pain scale - at its worst (0-10) 8 Lumbopelvic Eval Posture Thoracic Spine Posture Standing Position Increased Kyphosis Lumbar Spine Posture Standing Position Decreased Lordosis Palapation tenderness bilateral lumbar spinal tenderness Yes: 2/4 L3-S1 paraspinal tenderness Yes: 2/4 L3-S1 buttock tenderness Yes: L>R 3/4 Accessory Movement L3 bilateral L4 bilateral L5 bilateral S1 bilateral Range of Motion Lumbar Spine Active Flexion Range of 55 Motion (degrees) Lumbar Spine Active Extension Range of 15 Motion (degrees) Left Lumbar Spine Lateral Flexion Active 22 Range of Motion (degrees) Right Lumbar Spine Lateral Flexion 14 Active Range of Motion (d
== END 2019-10-19 14:05 | disposition home or self-care (01) ==
LOC: PT 14:00
PROVIDERS: PCP Internal Medicine Adolescent Medicine; Visit Provider Nurse Practitioner Family
DX: M54.5 Low back pain (principal)
CPT/HCPCS: 97163

== ENCOUNTER → 2019-12-05 07:18 | Outpatient (CLI) | payer MEDICARE, BC, SELFPAY ==
--- NOTE | 2019-12-05 07:18 | NM_ITS ---
APPROVED REPORT Exam: Nuclear Stress Test Indication: CAD, D.M., HYPERLIPIDEMIA, FORMER TOB USE, FM HX, C.P., SOB, FATIGUE Patient Location: Outpatient Stress Tech: Maria M Nava IN Tech:Rachele Brower, ARRT, RT (R)(N) Ht: 5 ft 4 in Wt: 147 lbs Bra Size: 36B HR: 71 bpm BP: 142/43 mmHg BSA: 1.72 m2 BMI: 25.2 History: CAD, D.M., HYPERLIPIDEMIA, FORMER TOB USE, FM HX, C.P., SOB, FATIGUE Procedure: Patient received a 0.4 mg of intravenous Lexiscan, resting heart rate 71 bpm, resting blood pressure 142/43 mmHg, with Lexiscan maximum heart rate achived was 90 bpm which is Less than 85 % of the maximum predicted heart rate and blood pressure was 187/65 mmHg. With Lexiscan, patient denied any complaint of chest pain. Electrocardiogram Resting electrocardiogram shows sinus rhythm, with Lexiscan there is less than 1.[address] segment depression noted from the baseline EKG. The EKG portion of the Lexiscan Myoview is nondiagnostic. Cardiac Stress and Resting SPECT Images: Cardiac Stress and Resting SPECT images were obtained using technetium 99m Myoview 32.5 mCi stress and 10.25 mCi at rest. Gated SPECT for the analysis of segmental wall motion and calculation of the ejection fraction also done. Cardiac stress and resting SPECT images show uniform myocardial activity without segmental perfusion abnormality, computer derived ejection fraction is over 65% with no regional wall motion abnormality, right ventricle is normal size and contractility. Conclusion: 1. The EKG portion of the Lexiscan Myoview is nondiagnostic. 2. No scintigraphic evidence of reversible ischemia seen, computer derived ejection fraction is over 65% with no regional wall motion abnormality, right ventricle is normal size and contractility. 3. Normal Lexiscan Myoview study. Electronically signed by : Devin Salcido, 12/05/2019 18:01:16
--- NOTE | 2019-12-05 07:20 | CA_ITS ---
APPROVED REPORT Retail Service Technician: Natali Ibanez RVT Laterality: Bilateral Study Quality: Good Indications: Carotid stenosis Risk Factors Hypertension: Smoking Doppler Spectral Velocity Analysis ECA (R) 33.90/0.00 cm/s ECA (L) 327.30/38.10 cm/s dICA (R) 156.50/33.70 cm/s dICA (L) 107.30/37.40 cm/s Oni (R) 161.00/30.90 cm/s Oni (L) 129.90/31.10 cm/s pICA (R) 198.00/46.40 cm/s pICA (L) 153.30/47.40 cm/s dCCA (R) 91.80/23.30 cm/s dCCA (L) 105.70/25.40 cm/s pCCA (R) 111.00/17.70 cm/s pCCA (L) 134.30/23.50 cm/s Vert (R) 76.20/12.00 cm/s Vert (L) 35.70/11.20 cm/s ICA/CCA 2.16 ICA/CCA 1.45 Findings Study suggests 20-49% stenosis of the right internal cartoid artery worsened from the 02/09/19 study. Study suggests 50-69% stenosis of the left internal cartoid artery u nchanged from the 02/09/19 study. Study suggests greater than 50% stenosis of the left external cartoid artery. Antegrade flow seen bilateral vertebral arteries. ? 3.7cm cystic lesion right neck. Conclusion Study suggests 20-49% stenosis of the right internal cartoid artery worsened from the 02/09/19 study. Study suggests 50-69% stenosis of the left internal cartoid artery u nchanged from the 02/09/19 study. Antegrade flow seen bilateral vertebral arteries. 3.7cm hypoechoic lesion right neck. Suggest CT without and with contrast for further evaluation Electronically signed by : Daniele Ocampo MD 12/05/2019 17:35:59
--- NOTE | 2019-12-05 07:20 | CA_ITS ---
APPROVED REPORT EXAM: Comprehensive 2D, Doppler, and color-flow Echocardiogram Graphic Design Intern: Mariely Do CRT Ht: 5 ft 3 in Wt: 135lbs BSA: 1.64 BP: 120/80 mmHg Indications: Chest Pain, Murmur, Shortness of Breath, Diabetes, Palpitations, CAD, HUMBERTO, [id number], SMOKER 2D Dimensions LVOT 1.99 cm (M/F) 1.5-2.5 M-Mode Dimensions RVDd 2.01 cm (0.9-2.6) LVDd 4.51 cm (3.5-5.7) LVDs 2.76 cm (3.5-5.7) IVSd 1.48 cm (0.6-1.1) PWd 0.38 cm (0.6-1.1) EF (Teich) 69.30% FS 38.80% EDV (Teich) 92.90 mL ESV (Teich) 28.50 mL LV Diastology E/A Ratio 0.69 Mitral Valve MV A Velocity 109.00 (40-130 cm/s) Left Ventricle Left atrium is mildly enlarged, left ventricle is normal size, mild concentric left ventricular hypertrophy, visually estimated ejection fraction 55% with no regional wall motion abnormality, grade 1 diastolic dysfunction seen without tissue Doppler evidence of raise left atrial pressure. Right Ventricle Right atrium right ventricular normal size and contractility. Aortic Valve Aortic valve is thickened and calcified, there is no aortic stenosis, there is moderate aortic insufficiency. Mitral Valve Mitral valve is grossly normal, there is mild mitral regurgitation. Tricuspid Valve Tricuspid valve is grossly normal, there is mild tricuspid regurgitation, tricuspid regurgitation jet velocity is inadequate for calculation of the right ventricular systolic pressure. Pulmonic Valve Pulmonic valve is poorly visualized. Great Vessels Aortic root is normal size. Pericardium No significant pericardial effusion noted. Conclusion 1. Mildly enlarged left atrium, normal left ventricular size, visually estimated ejection fraction 55% with no regional wall motion abnormality, grade 1 diastolic dysfunction seen without tissue Doppler evidence of raise left atrial pressure. 2. Thickened and calcified aortic valve without aortic stenosis, there is moderate aortic insufficiency. 3. Mild mitral and tricuspid regurgitation. 4. No significant pericardial effusion noted. Electronically signed by : Devin Salcido, 12/05/2019 18:24:52
--- NOTE | 2019-12-05 08:10 | HMH.ITSHM ---
Current Home Medications as stated by this patient Dilia Chester or b2b sales representative. []TRAZODONE SIMETHICONE ROPINIROLE OMEPRAZOLE MULTIVITAMIN METFORMIN ASA LOSARTAN LINACLOTIDE HCTZ GABAPENTIN DULOXETINE DULAGLUTIDE DIPHENHYDRAMINE CYCLOBENZAPRINE COENZYME CARVEDILOL CLOPIDOGREL CALCIUM ATORVASTATIN
== END ==
PROVIDERS: PCP Internal Medicine Adolescent Medicine; Visit Provider Nurse Practitioner Family
DX: E78.5 Hyperlipidemia, unspecified (principal); I10 Essential (primary) hypertension; I20.9 Angina pectoris, unspecified; I35.1 Nonrheumatic aortic (valve) insufficiency; I65.29 Occlusion and stenosis of unspecified carotid artery; I70.1 Atherosclerosis of renal artery; I73.9 Peripheral vascular disease, unspecified; I77.4 Celiac artery compression syndrome; Z72.0 Tobacco use; Z98.890 Other specified postprocedural states; R53.83 Other fatigue; R09.89 Other specified symptoms and signs involving the circulatory and respiratory systems
CPT/HCPCS: 78452; 93017; 93306; 93880; A9502; J2785

== ENCOUNTER → 2019-12-19 14:01 | Outpatient (CLI) | payer MEDICARE, BC, SELFPAY ==
--- NOTE | 2019-12-19 14:12 | CT_ITS ---
Procedure: CT ANGIO NECK CLINICAL HISTORY: CORBY carotid artery disease Hx corby, right side CAROTID US SHOWED 69% BLOCKAGE ON LEFT, 20-40% ON THE RIGHT COMPARISON: US CA CAROTID DUPLEX BI from 12/05/2019 TECHNIQUE: IV Contrast: 100ml Optiray 350 Axial images obtained with sagittal and coronal reformats. All CT scans at the facility use one or more dose reduction, viz: automated exposure control, ma/kV adjustment per patient size (including targeted exams where dose is matched to indication, i.e. head), or iterative reconstruction technique. FINDINGS: The aortic arch shows skin atheromatous changes with nonocclusive atheromatous changes the ostium of the great vessels. There is some calcific plaque involving the mid upper aspect of the common carotid artery without significant stenosis. A small web is present in the distal right common carotid with 20 percent stenosis. There is occlusion of the proximal aspect of the right external carotid artery. There has been a prior carotid endarterectomy on the right with no significant stenosis of the right internal carotid artery.. 20 percent narrowing of the ostium of the right vertebral artery. The right vertebral has an otherwise unremarkable appearance. The left common carotid artery is unremarkable in its proximal mid aspect. There is some calcific plaque in the mid to distal left common carotid artery. Calcific plaque is present in the left bulb and proximal left ICA causing 55 stenosis at the bulb. The left vertebral artery is severely narrowed at its ostium of approximately 66-70 percent. Atherosclerotic calcification involves the cavernous portion of the ICAs on both sides. On the ultrasound there was a hypoechoic area in the right aspect of the neck. This is present just anterior to the carotid artery measuring approximately falcon by 19 mm with low to I so density centrally and some peripheral increased density and may be due to seroma. Seroma. There are centrilobular emphysematous changes in the lung apices. Scattered small nodes are present in the neck IMPRESSION: 1. Status post right carotid endarterectomy with no significant stenotic lesion on the right. 2. Fifty-five% stenosis of the left carotid bulb due to calcific plaque 3. 70 percent stenosis of the ostium of the left vertebral artery 4. Hypodense area in the right neck anterior to the carotid possibly due to postsurgical seroma Dictated by: Daniele Ocampo MD 12/20/2019 12:38 Daniele Ocampo MD in [place] 12/20/2019 12:38
[2019-12-19 14:32] LABS: Blood Urea Nitrogen 13 mg/dl (7-17); Estimated Glomerular Filt Rate 64 ml/min (>60); GFR (African American) 78 ML/MIN (>60)
== END ==
PROVIDERS: PCP Internal Medicine Adolescent Medicine; Visit Provider Urology
DX: E78.5 Hyperlipidemia, unspecified (principal); I10 Essential (primary) hypertension; I20.9 Angina pectoris, unspecified; I35.1 Nonrheumatic aortic (valve) insufficiency; I70.1 Atherosclerosis of renal artery; I73.9 Peripheral vascular disease, unspecified; I77.4 Celiac artery compression syndrome; R53.83 Other fatigue; Z72.0 Tobacco use; Z98.890 Other specified postprocedural states; I65.23 Occlusion and stenosis of bilateral carotid arteries
CPT/HCPCS: 36415; 70498; 82565; 84520; Q9967

== ENCOUNTER → 2019-12-25 10:41 | Outpatient (CLI) | payer MEDICARE, BC, SELFPAY ==
[2019-12-25 11:10] LABS: Basophils % 0.5 % (0.1-2.0); Eosinophils # 0.1 K/mm3 (0.0-0.4); Hematocrit 32.9 % (37.0-47.0); Hemoglobin 11.2 g/dL (12.2-16.2); Lymphocytes # 2.1 K/mm3 (0.7-4.5); Lymphocytes % 31.4 % (10-50); Mean Corpuscular Volume 91.2 fl (81-99); Mean Platelet Volume 7.6 fl (7.4-10.4); Monocytes # 0.3 K/mm3 (0.1-1.0); Monocytes % 4.6 % (1.7-9.3); Neutrophils # 4.1 K/mm3 (1.8-7.8); Neutrophils % 61.4 % (37.0-80.0); Platelet Count 247 K/mm3 (142-424); Red Blood Count 3.61 M/mm3 (4.20-5.40); Red Cell Distribution Width 12.4 % (11.5-17.5); White Blood Count 6.7 K/mm3 (4.8-10.8)
[2019-12-25 12:02] LABS: Chloride 94 mmol/L (98-107); Potassium 4.1 mmoL/L (3.5-5.1); Sodium 136 mmol/L (136-145)
[2019-12-25 12:05] LABS: Anion Gap 14.1 mEq/L (5-15); Blood Urea Nitrogen 11 mg/dl (7-17); Calcium 9.4 mg/dl (8.4-10.2); Carbon Dioxide 32 mmol/L (22.0-30.0); Estimated Glomerular Filt Rate 57 ml/min (>60); GFR (African American) 69 ML/MIN (>60); Glucose 146 mg/dl (74-100)
[2019-12-25 12:18] LABS: Free T4 (Free Thyroxine) 1.16 ng/dl (0.78-2.19)
== END ==
PROVIDERS: Visit Provider Urology
DX: E78.5 Hyperlipidemia, unspecified (principal); I10 Essential (primary) hypertension; I25.10 Atherosclerotic heart disease of native coronary artery without angina pectoris; I35.1 Nonrheumatic aortic (valve) insufficiency; I65.29 Occlusion and stenosis of unspecified carotid artery; I70.1 Atherosclerosis of renal artery; I73.9 Peripheral vascular disease, unspecified; I77.4 Celiac artery compression syndrome; R53.83 Other fatigue; Z72.0 Tobacco use; Z98.890 Other specified postprocedural states
CPT/HCPCS: 36415; 80048; 84439; 84443; 85025

== ENCOUNTER 2020-04-06 15:56 | Emergency (ER) | payer MEDICARE, BC, SELFPAY ==
[2020-04-06 16:09] VITALS: BP 114/57; PULSE 83; RESP 18; TEMP 36.7; O2SAT 96; BMI 25.7
--- NOTE | 2020-04-06 16:13 | HMH.EDUTC ---
[facility] [place] Disposition Clinical Impression: Viral syndrome, Exposure to COVID-19 virus Disposition: Home, Self-Care Condition on Discharge: Good Instructions: DI for COVID-19 (Suspected or Confirmed ), Preventing the Spread of Coronavirus Discharge Instructions Additional Instructions: Drink plenty of fluids. Take tylenol for pain or fever. Return if you begin to have difficulty breathing. Follow up with your regular doctor. GO TO THE ER FOR ANY WORSENING SYMPTOMS Prescriptions: Benzonatate [Tessalon Perle 100mg Cap] 100 mg PO TIDP PRN #30 cap PRN Reason: Cough Transmission Status: Received by [id number] Azithromycin [Z-Bry 250mg Tab*] 250 mg PO UD DOSE PK #6 tab Transmission Status: Received by [id number] Referrals: Tin Cutler MD [Primary Care Provider] - Time of Disposition: 16:15 Medical Decision Making - Medical Records Medical records reviewed: No: I reviewed the patient's medical records. - Cory Inquiry Pt receiving controlled substance: No Vital Signs: 04/06/20 16:09 04/06/20 16:25 Temperature 98.0 F 98.0 F Temperature Source Oral Oral Pulse Rate 83 Pulse Rate [Radial] 83 Respiratory Rate 18 18 Blood Pressure 114/57 L Blood Pressure [Right Arm] 114/57 L Blood Pressure Mean [Right Arm] 76 Blood Pressure Source Automatic Cuff Blood Pressure Source [Right Arm] Automatic Cuff Blood Pressure Position Supine Blood Pressure Position [Right Arm] Sitting 02 Sat by Pulse Oximetry 96 Oxygen Delivery Method Room Air Room Air Orders (Tests/Meds): ORDERS Category Date Time Status Covid-19 Nasal PCR Sendout P&C Routine Lab 04/06/20 16:[address] [facility] [place] HPI - General Stated complaint: COVID test Time Seen by Provider: 04/06/20 16:13 Mode of Arrival: Ambulatory Source of Information: Patient Limitations: No Limitations Description of Symptoms (Recalled from Triage Doc. by RN): covid exposure, cough, body aches. HEENT Symptoms (Recalled from RN notes): Yes Resp Symptoms (Recalled from RN notes): No Skin Symptoms (Recalled from RN notes): No MS Symptoms (Recalled from RN notes): No Functional Status (Recalled from RN notes): wnl - History of Present Illness Provider Complaint: She states that for the past 3 days she has had a cough, body aches and fever. She states that she feels bad. She has been around someone that turned out to have covid last week. - Related Data Home Medications Medication Instructions Recorded Confirmed calcium carbonate 200 mg calcium 200 mg PO TID PRN tab 06/21/17 03/24/20 (500 mg) chewable tablet coenzyme Q10 100 mg capsule 100 mg PO BID 06/21/17 03/24/20 cyclobenzaprine 10 mg tablet 10 mg PO TID 06/21/17 03/24/20 diphenhydramine HCl 25 mg capsule 25 mg PO Q4-6H 06/21/17 03/24/20 lactobacillus combination no.9 4 4,000 mmu cells PO ONCE 06/21/17 03/24/20 billion cell capsule linaclotide 145 mcg capsule 145 mcg PO BID cap 06/21/17 03/24/20 metformin 1,000 mg tablet 1,000 mg PO BID 06/21/17 03/24/20 multivit with tab PO 06/21/17 03/24/20 emngklys-oalf-WO-lutein 8 mg iron-400 mcg-300 mcg tablet polyethylene glycol 3350 17 17 g PO DAILY g 06/21/17 03/24/20 gram/dose oral powder ropinirole 1 mg tablet 1 mg PO BID tab 06/21/17 03/24/20 simethicone 125 mg capsule 125 mg PO QHS PRN 06/21/17 03/24/20 trazodone 100 mg tablet 100 mg PO QHS 06/21/17 03/24/20 dulaglutide 0.75 mg/0.5 mL 0.75 mg SUB-Q QWEEK 07/12/17 03/24/20 subcutaneous pen injector fenugreek seed extract 500 mg 500 mg PO TID cap 08/09/17 03/24/20 capsule fentanyl 12 mcg/hr transdermal 1 patch TRANSDERMA Q72H 10/04/17 03/24/20 patch duloxetine 60 mg capsule,delayed 60 mg PO DAILY 02/07/19 03/24/20 release gabapentin 100 mg tablet 600 mg PO TID tab 05/02/19 03/24/20 citalopram 20 mg tablet 20 mg PO DAILY 03/24/20 03/24/20 Previous Rx's Medication Instructions Recorded omeprazole 40 mg capsule,delayed 40 mg PO DAILY #30 cap
[2020-04-06 16:25] VITALS: BP 114/57; PULSE 83; RESP 18; TEMP 36.7; O2SAT 96
[2020-04-08 12:44] LABS: Covid-19 Nasal PCR Sendout P&C NEGATIVE
== END 2020-04-06 16:26 | disposition home or self-care (01) ==
PROVIDERS: Emergency Provider Nurse Practitioner Family; PCP Internal Medicine Adolescent Medicine
DX: Z20.828 Contact with and (suspected) exposure to other viral communicable diseases (principal); B34.9 Viral infection, unspecified; I25.10 Atherosclerotic heart disease of native coronary artery without angina pectoris; E11.9 Type 2 diabetes mellitus without complications; E78.5 Hyperlipidemia, unspecified; I10 Essential (primary) hypertension; Z87.891 Personal history of nicotine dependence; Z79.899 Other long term (current) drug therapy
CPT/HCPCS: G0463; 99201; U0004

== ENCOUNTER → 2020-09-25 16:17 | Outpatient (CLI) | payer MEDICARE, BC, SELFPAY ==
[2020-09-25 16:59] LABS: Basophils % 0.5 % (0.1-2.0); Eosinophils # 0.2 K/mm3 (0.0-0.4); Eosinophils % 1.9 % (0.1-12.0); Hematocrit 34.9 % (37.0-47.0); Hemoglobin 10.9 g/dL (12.2-16.2); Lymphocytes # 2.4 K/mm3 (0.7-4.5); Lymphocytes % 25.3 % (10-50); Mean Corpuscular HGB Conc 31.3 g/dL (31.8-35.4); Mean Corpuscular Hemoglobin 27.8 pg (27.0-31.2); Mean Corpuscular Volume 88.9 fl (81-99); Mean Platelet Volume 7.1 fl (7.4-10.4); Monocytes # 0.4 K/mm3 (0.1-1.0); Monocytes % 4.5 % (1.7-9.3); Neutrophils # 6.3 K/mm3 (1.8-7.8); Neutrophils % 67.7 % (37.0-80.0); Platelet Count 303 K/mm3 (142-424); Red Blood Count 3.92 M/mm3 (4.20-5.40); Red Cell Distribution Width 12.9 % (11.5-17.5); White Blood Count 9.3 K/mm3 (4.8-10.8)
[2020-09-25 17:11] LABS: Hemoglobin A1C 7.2 % (4.0-6.0)
[2020-09-25 17:23] LABS: Alanine Aminotransferase 25 U/L (12-78); Albumin Level 4.8 g/dl (3.5-5.0); Albumin/Globulin Ratio 1.9 (1.1-1.8); Alkaline Phosphatase 93 U/L (38-126); Anion Gap 18.7 mEq/L (5-15); Aspartate Amino Transferase 35 U/L (14-36); Bilirubin,Total 0.5 mg/dl (0.2-1.3); Blood Urea Nitrogen 10 mg/dl (7-17); Calcium 9.4 mg/dl (8.4-10.2); Carbon Dioxide 30 mmol/L (22.0-30.0); Chloride 91 mmol/L (98-107); Chol/HDL Ratio 2.1 (1-3.5); Cholesterol 147 mg/dl (140-200); Estimated Glomerular Filt Rate 51 ml/min (>60); GFR (African American) 62 ML/MIN (>60); Globulin 2.5 g/dL (1.3-3.2); Glucose 167 mg/dl (74-100); HDL Cholesterol 70 mg/dl (40-60); Potassium 4.7 mmoL/L (3.5-5.1); Sodium 135 mmol/L (136-145); Total Protein,Serum 7.3 g/dl (6.3-8.2); Triglycerides 184 mg/dl (30-150); VLDL Cholesterol 37 mg/dL (0-40)
[2020-09-25 17:45] LABS: Direct LDL Cholesterol 53.09 mg/dL (100-129)
[2020-09-25 18:15] LABS: Vitamin B12 359 pg/mL (239-931)
[2020-09-25 19:03] LABS: Ferritin 12.4 ng/ml (11.1-264)
== END ==
PROVIDERS: Visit Provider Nurse Practitioner Family
DX: E11.8 Type 2 diabetes mellitus with unspecified complications (principal); I10 Essential (primary) hypertension; D64.9 Anemia, unspecified; Z79.84 Long term (current) use of oral hypoglycemic drugs
CPT/HCPCS: 36415; 80053; 80061; 82607; 82728; 83036; 85025

== ENCOUNTER → 2020-10-01 13:41 | Outpatient (CLI) | payer MEDICARE, BC, SELFPAY ==
--- NOTE | 2020-10-01 13:46 | CA_ITS ---
APPROVED REPORT Api Architect: MISTY Laterality: Bilateral Indications: corby Risk Factors Hypertension: Smoking Surgery/Intervention Endarterectomy: right Doppler Spectral Velocity Analysis ECA (R) 93.70/7.70 cm/s ECA (L) 397.20/33.30 cm/s dICA (R) 135.80/36.40 cm/s dICA (L) 121.20/32.00 cm/s Oni (R) 154.00/41.70 cm/s Oni (L) 207.40/47.00 cm/s pICA (R) 160.40/28.90 cm/s pICA (L) 353.60/46.10 cm/s dCCA (R) 113.30/21.40 cm/s dCCA (L) 97.30/25.70 cm/s pCCA (R) 100.50/22.50 cm/s pCCA (L) 132.60/21.40 cm/s Vert (R) 101.60/22.50 cm/s Vert (L) 59.70/13.50 cm/s ICA/CCA 1.42 ICA/CCA 3.63 Findings Duplex evaluation demonstrates stenosis of the right proximal internal carotid artery in the range of 20-49% (upper end of scale), unchanged since study 12/05/19. Duplex evaluation demonstrates stenosis of the left proximal internal carotid artery in the range of 50-69%(upper end of scale), unchanged since study 12/05/19. Moderate, heterogenous plaque seen in bilateral proximal and mid ICA's. Conclusion Duplex evaluation demonstrates stenosis of the right proximal internal carotid artery in the range of 20-49% (upper end of scale), unchanged since study 12/05/19. Duplex evaluation demonstrates stenosis of the left proximal internal carotid artery in the range of 50-69%(upper end of scale), unchanged since study 12/05/19. Moderate, heterogenous plaque seen in bilateral proximal and mid ICA's. Electronically signed by : Naveen Tate MD 10/02/2020 08:00:47
== END ==
PROVIDERS: PCP Internal Medicine Adolescent Medicine; Visit Provider Nurse Practitioner
DX: E11.9 Type 2 diabetes mellitus without complications (principal); E78.5 Hyperlipidemia, unspecified; I10 Essential (primary) hypertension; I20.8 Other forms of angina pectoris; I35.1 Nonrheumatic aortic (valve) insufficiency; I70.1 Atherosclerosis of renal artery; I73.9 Peripheral vascular disease, unspecified; I77.4 Celiac artery compression syndrome; R09.89 Other specified symptoms and signs involving the circulatory and respiratory systems; R10.9 Unspecified abdominal pain; Z72.0 Tobacco use; Z79.84 Long term (current) use of oral hypoglycemic drugs
CPT/HCPCS: 93880

== ENCOUNTER → 2020-10-20 13:01 | Outpatient (POV) | payer MEDICARE, BC, SELFPAY ==
[2020-10-20 13:35] VITALS: BP 134/60; PULSE 91; RESP 18; O2SAT 94; BMI 26.5
--- NOTE | 2020-10-20 14:11 | HMH.PMCON ---
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 We will schedule her for a lumbar epidural steroid injection at L4-L5. She has not had injections for some time. She is on Xarelto which is prescribed by Dr. Yap. We will for the patient to hold her anticoagulation therapy prior to the injection. She will continue with home stretching. She has tried physical therapy for greater than 6 weeks with no significant relief. She previously took ibuprofen which caused GI bleeding. Patient is also on Xarelto, contraindicated anti-inflammatories. She is interested in intrathecal therapy and was referred to the clinic today for possible intrathecal therapy. We had a long discussion concerning intrathecal therapy and medications available for the device. She would like to do the psychological evaluation to determine if she is an appropriate candidate for intrathecal therapy. Patient has been advised she will need to weigh in on her fentanyl Duragesic patch prior to the trial. She is on 50 mcg an hour. Her Cory #[id number] was reviewed. Her morphine equivalent is 120. We will see the patient back after her injection at the L4-L5 area for reevaluation of symptoms. We will also discuss her psychological evaluation at that time. Risks and benefits of the procedure have been explained to the patient. Patient would like to proceed with the procedure. Possible side effects of corticosteroids have been discussed with the patient. Patient has been instructed to contact the clinic with any concerns before the next appointment. Dr. Velasquez has reviewed this note and agrees with this plan of care. This note was dictated using voice recognition software and make contain errors or omissions. HPI - Data of Consult Patient: new to practice Consult date: 10/20/20 Requesting Physician: Kirsty Malik APRN Primary Care Provider: Fiorella Nichols APRN - Consult Narrative Reason for consult: Neck pain, mid back pain, low back pain History of present illness: Ms. Chester is a 60 year old female who presents today for consultation for chronic neck, mid back, and low back pain. Patient says she has had this pain ongoing for nearly 10 years. Patient worked as a DIRECTOR OF WORKFORCE DEVELOPMENT for many years and says that she did do heavy lifting throughout the years of her job. The patient's pain is worse from the mid back to the low back area. She also complains of bilateral buttock, hips and leg pain. She reports a history of neuropathy bilateral feet. She does have paresthesia to her bilateral upper and lower extremities. She has been managed in the past with hydrocodone and oxycodone with no significant relief. She is currently taking gabapentin 600 mg 1 tablet p.o. 3 times daily and fentanyl Duragesic patch 50 mcg an hour. She was referred to us for possible intrathecal therapy. Patient has tried injective therapy in the past with no significant relief. She says she has not had any injections for quite a few years, however. She does say sitting gives her relief, while standing and walking worsen her pain. She reports prolonged sitting, however, makes her pain worse as well. She does have to reposition often. Patient does say lying flat does give her some relief. She says fentanyl Duragesic patches are no longer relieving her pain. She is on Xarelto prescribed by Dr. Yap following an endarterectomy. Patient does rate her pain today a 7 out of 10. CC:
--- NOTE | 2020-10-29 07:39 | PC.NURSE ---
Spoke with Dilia about holding her Xarelto 4 days prior to her scheduled lumbar injection on 11/05/20 after getting approval from Dr. Yap. She was agreeable.
== END ==
PROVIDERS: PCP Nurse Practitioner Family; Visit Provider Clinical Nurse Specialist Family Health
DX: M47.896 Other spondylosis, lumbar region (principal); M54.16 Radiculopathy, lumbar region; M43.16 Spondylolisthesis, lumbar region
CPT/HCPCS: 99202; G0463

== ENCOUNTER → 2020-10-21 12:40 | Outpatient (CLI) | payer MEDICARE, BC, SELFPAY ==
--- NOTE | 2020-10-21 12:44 | MM_ITS ---
PROCEDURE INFORMATION: Exam: MG Screening 3D Mammography Exam date and time: 10/21/2020 12:44 PM Age: 60 years old Clinical indication: Encounter for screening mammogram for malignant neoplasm of breast TECHNIQUE: Imaging protocol: Screening tomosynthesis and 2D mammography including computer-aided detection (CAD) when performed. COMPARISON: 1. MG DMSB DIG MAMM-SCREEN HANSEL 02/24/2016 10:18 AM 2. BL US BREAST-LT COMPLETE W/AXILLA 03/12/2016 11:03 AM FINDINGS: MAMMOGRAPHY: Breast composition: The breast tissue is composed of scattered areas of fibroglandular density. Mass: 0.4 cm mass in the anterior third of the left lower inner quadrant Architectural distortion: None. Calcifications: No suspicious calcifications. Asymmetric density: None. Skin thickening: None. Axillary adenopathy: None. IMPRESSION: Patient to be recalled for left breast ultrasound for further evaluation of a left breast mass. ASSESSMENT: BI-RADS Category 0: Incomplete- Need Additional Imaging Evaluation and/or Prior Mammograms for Comparison
== END ==
PROVIDERS: PCP Internal Medicine Adolescent Medicine; Visit Provider Nurse Practitioner Family
DX: Z12.31 Encounter for screening mammogram for malignant neoplasm of breast (principal)
CPT/HCPCS: 77063; 77067

== ENCOUNTER 2020-11-05 08:35 | Day surgery (SDC) | payer MEDICARE, BC, SELFPAY ==
[2020-11-05 08:59] VITALS: BP 122/56; PULSE 94; RESP 18; TEMP 36.6; O2SAT 96
[2020-11-05 10:13] VITALS: BP 123/55; PULSE 81; RESP 18; O2SAT 94
[2020-11-05 10:15] VITALS: BP 128/60; PULSE 87; RESP 18; O2SAT 95
--- NOTE | 2020-11-05 10:27 | P.PCN_ITS ---
- Procedure Date: 11/05/20 Time: 10:27 Anesthesiologist:: Pastora Lovell MD Complications:: None Pre-procedure Diagnosis:: Degenerative disc disease of lumbar spine, lumbar radiculopathy Post-procedure Diagnosis:: Same Indications for Procedure:: Is a very pleasant 60-year-old white female who presents today with chronic low back pain radiating into her legs to the above diagnosis. She has tried and failed conservative treatment including oral pain medication and home stretching program for greater than 6 weeks. She is currently taking gabapentin 600 mg 1 tablet 3 times a day and transdermal fentanyl patch 50 mcg an hour. She was referred to us for intrathecal therapy and reports she has not had any injections in a few years now. Of note, she is currently on Xarelto after u ndergoing an endarterectomy but has held this medication for the appropriate time. For this injection today. Plan for today is for the patient to undergo a lumbar epidural steroid injection at L4-L5 #1 today. Procedure Details:: Informed consent was obtained and the risk and benefits of the procedure was explained to the patient. The patient was taken to the procedure room. The patient was placed prone on the procedure table. The patient was prepped and draped in sterile fashion. C-arm fluoroscopy was used to view the lumbar spine. Skin and subcutaneous tissues were anesthetized using lidocaine. I placed an 18-gauge epidural needle and advanced into the L4-L5 interspace using fluoroscopic guidance and [id number] to air and saline. After confirmat ion of needle placement in the epidural space with dye I injected 1 mL of lidocaine 1.0% with Depo-Medrol 80 mg. Patient tolerated the procedure well with no complications. Plan and Disposition:: We will follow-up with this patient in 2 weeks. Will reevaluate pain symptoms at the time. If she gets short-term pain relief or very minimal pain relief with this injection we will consider other treatment modalities including intrathecal therapy for which she was originally referred to our clinic for.
[2020-11-05 10:50] VITALS: BP 143/63; PULSE 73; RESP 20; O2SAT 96
== END 2020-11-05 10:50 | disposition home or self-care (01) ==
LOC: SC.PAINP 08:41
PROVIDERS: PCP Nurse Practitioner Family; Visit Provider Anesthesiology Pain Medicine
DX: M51.16 Intervertebral disc disorders with radiculopathy, lumbar region (principal)
CPT/HCPCS: 62323; J1040; Q9966

== ENCOUNTER → 2020-11-12 14:40 | Outpatient (CLI) | payer MEDICARE, BC, SELFPAY ==
--- NOTE | 2020-11-12 14:46 | US_ITS ---
PROCEDURE: US BREAST LT COMPLETE CLINICAL INDICATION: ABN MAMM COMPARISON: US BL US BREAST-LT COMPLETE W/AXILLA from 03/12/2016 MG MM DIG SCREENING MAMM BI W/CAD from 10/21/2020 FINDINGS: At 4 o'clock there is a 3 mm cyst. At 6 o'clock there is a 3 mm cyst. A 4 mm hypoechoic nodules present at 9 o'clock and may represent a cyst. There are some low level echoes within the nodule however this could be related to the technique. There is enhanced through transmission of sound. Small nodes are present in the axilla measuring up to 2 by 1.2 cm. No suspicious mammographic nodules demonstrated. IMPRESSION: Mammographic abnormality may represent a 4 mm cyst. BI-RADS category 3 probably benign. Recommend six-month mammographic and sonographic follow-up Dictated by: Daniele Ocampo MD 12/02/2020 11:26 Daniele Ocampo MD in [place] 12/02/2020 11:26
== END ==
PROVIDERS: PCP Nurse Practitioner Family; Visit Provider Nurse Practitioner Family
DX: R92.8 Other abnormal and inconclusive findings on diagnostic imaging of breast (principal)
CPT/HCPCS: 76641

== ENCOUNTER → 2020-11-24 08:59 | Outpatient (POV) | payer MEDICARE, BC, SELFPAY ==
[2020-11-24 09:09] VITALS: BP 159/72; PULSE 92; RESP 18; O2SAT 95; BMI 25.8
--- NOTE | 2020-11-24 09:50 | HMH.PAINSOAP ---
[facility] Pain Management SOAP Note Subjective:: Patient is a 79-year-old white female who presents today for follow-up. Patient was previously seen in the clinic for degenerative disc disease lumbar spine and lumbar radicular symptoms. She underwent a lumbar epidural steroid injection for which she got approximately 6 to 7 days of relief. Patient says that she had 100% relief for 5 days, her pain returned on the sixth day. Patient has tried injective therapy in the past which has not given her any significant long-term relief. She is currently on fentanyl Duragesic patch as well as gabapentin. She is continuing with pain despite the medications. She has tried physical therapy for greater than 6 weeks in the past and continues with home stretching. Patient is on Xarelto and is unable to take anticoagulation therapy. This was the patient's L4-L5 number 1 injection within our clinic. Patient was sent for psychological evaluation to determine if she was an appropriate candidate for intrathecal therapy. Patient has undergone injections in the past which only gave her, at most, 2 weeks of relief. At the patient's last visit, she did discuss intrathecal therapy and medications available for treatment. She is willing to wean on her fentanyl Duragesic patch to try morphine in her intrathecal pump. She understands she will need to be completely weaned from the medication before trial. She is in agreement. She did undergo a psychological evaluation was considered an appropriate candidate for intrathecal therapy. Patient does rate her pain a 6 out of 10 today. Review of Systems General: No recent weight changes, no fever, no sleep disturbances Respiratory: No cough, no shortness of air, no recurring pulmonary infections Cardiovascular/peripheral vascular: No chest pain, no palpitations, no edema, no shortness of breath Gastrointestinal: No new onset incontinence, normal bowel movements reported Genitourinary: No new onset incontinence Musculoskeletal: Low back pain with radiation into bilateral lower extremities Psychiatric: [Normal mood/affect] Neurological: [Denies weakness in extremities], [denies balance issues] Objective:: Physical exam General: Alert and oriented x3, no acute distress, pleasant and cooperative, [on room air] Lungs: Respirations even and unlabored, symmetrical chest expansion Eyes: PERRL Musculoskeletal: Flexion and extension of [] lumbar [spine] somewhat guarded secondary to pain, strength in upper and lower extremities [5/5], [antalgic gait noted] Neurological: Speech clear, [test center administrator equal], no gross sensory deficit Assessment:: Degenerative disc disease lumbar spine with lumbar radiculopathy symptoms Plan:: We will schedule patient for the intrathecal pain pump trial with fentanyl. She plans to wean on her Duragesic patch of fentanyl. We discussed starting with morphine. She is in agreement. She says she has taken morphine in the past for pain which has been beneficial for her. She has tried and failed conservative therapies of physical therapy for more than 6 weeks and continued home stretching. She is unable to take anti-inflammatories due to Xarelto therapy. She has tried injective therapy in the past but has only gotten up to 2 weeks of relief. She is considered an appropriate candidate from psychological evaluation. We will schedule her for the trial and see her back afterwards for reevaluation of symptoms. She does understand she will need to hold her Xarelto prior to the trial. Risks and benefits of the procedure have been explained to the patient. Patient would like to proceed with the procedure. Patient has been instructed to contact the clinic with any concerns before the next appointment. Dr. Velasquez has reviewed this note and agrees with this plan of care. This note was dictated Assessment:: Degenerative disc disease lumbar radiculopathy symptoms [facility] History I have reviewed the patie
--- NOTE | 2020-11-25 14:37 | PC.NURSE ---
Patient was notified of Pain Pump Trial on 12/12/20 and told to stop bloodthinner 4 days prior on 12/08/20
== END ==
PROVIDERS: PCP Nurse Practitioner Family; Visit Provider Clinical Nurse Specialist Family Health
DX: M51.16 Intervertebral disc disorders with radiculopathy, lumbar region (principal)
CPT/HCPCS: 99212; G0463

== ENCOUNTER 2020-12-12 07:53 | Day surgery (SDC) | payer MEDICARE, BC, SELFPAY ==
[2020-12-12] VITALS (9 sets, daily range): BP systolic 124–166; BP diastolic 52–102; PULSE 79–87; RESP 18–20; TEMP 36.4; O2SAT 93–98; BMI 25.7
--- NOTE | 2020-12-12 09:12 | HMH.PMPROC ---
- Procedure Date: 12/12/20 Time: 09:12 Anesthesiologist:: Pastora Lovell MD Complications:: None Pre-procedure Diagnosis:: Degenerative disease of the lumbar spine lumbar spine, lumbar radiculopathy Post-procedure Diagnosis:: Same Indications for Procedure:: Patient is a very pleasant 60-year-old white female who presents today with chronic low back pain radiating into her legs related to the above diagnosis. She is previously undergone lumbar epidural steroid injections but unfortunately only got 100% relief for 5 days before the pain returned. She is currently on transdermal fentanyl patch as well as gabapentin. She is trialed and failed conservative treatment including oral pain medications and therapy for greater than 6 weeks. She has undergone a successful psychological evaluation is eager to proceed with the intrathecal trial. She has successfully weaned off her oral pain medications in anticipation for the intrathecal pump trial today. She is on Xarelto but has temporarily held this medication for the appropriate time. The plan for today is for the patient to undergo an intrathecal pump trial with fentanyl 25 mcg single shot bolus. Procedure Details:: Informed consent was obtained and the risk and benefits of the procedure was explained to the patient. The patient was taken to the procedure room and placed prone on the procedure table. Patient was prepped and draped in sterile fashion. C-arm fluoroscopy was used to view the lumbar spine. The skin and subcutaneous tissues were anesthetized using lidocaine. I placed a 18-gauge spinal needle into the L5-S1 interspace and advanced until clear CSF was obtained. After this intrathecal catheter was inserted and advanced very easily to the L1 vertebral body. The needle was withdrawn. We were able to freely withdraw clear CSF through the catheter. We then injected intrathecal fentanyl single shot bolus of 25 mcg followed by saline and followed by the previous CSF that was withdrawn. The needle and catheter were then removed and a Band-Aid was placed. Patient tolerated the procedure well with no complications. Plan and Disposition:: Follow-up with this patient in 2 weeks. Will reevaluate pain symptoms at that time.
--- NOTE | 2020-12-12 10:48 | PC.NURSE ---
0830-physical therapy at bedside for evaluation 0910-pt returned to bay, accompanied by nursing. denies pain. VSS, dressing C/D/I. pt breakfast tray set up 0925-pt resting in chair, watching TV. tolerated PO intake. VSS, no pain. dressing C/D/I 0940-pt resting in chair. VSS, denies pain. without needs or concerns at this time 0955-pt resting in chair. VSS, denies pain. without any needs or concerns at this time. 1010-pt resting in chair. VSS, denies pain. without needs or concerns at this time. 1016-Physical therapy at bedside for evaluation 1017-Dr. Lovell at bedside
== END 2020-12-12 10:25 | disposition home or self-care (01) ==
LOC: SC.PAINP 07:56
PROVIDERS: PCP Nurse Practitioner Family; Visit Provider Anesthesiology Pain Medicine
DX: M51.16 Intervertebral disc disorders with radiculopathy, lumbar region (principal); I25.10 Atherosclerotic heart disease of native coronary artery without angina pectoris; E78.5 Hyperlipidemia, unspecified; I10 Essential (primary) hypertension; J45.909 Unspecified asthma, uncomplicated; M79.18 Myalgia, other site; E11.9 Type 2 diabetes mellitus without complications; Z87.891 Personal history of nicotine dependence; I73.9 Peripheral vascular disease, unspecified; K21.9 Gastro-esophageal reflux disease without esophagitis; G43.909 Migraine, unspecified, not intractable, without status migrainosus; N28.9 Disorder of kidney and ureter, unspecified
CPT/HCPCS: 62323; 96365

== ENCOUNTER → 2020-12-30 09:55 | Outpatient (CLI) | payer MEDICARE, BC, SELFPAY ==
[2020-12-30 10:45] LABS: Basophils # 0.1 K/mm3 (0-0.2); Basophils % 0.7 % (0.1-2.0); Eosinophils # 0.1 K/mm3 (0.0-0.4); Eosinophils % 1.3 % (0.1-12.0); Hematocrit 34.9 % (37.0-47.0); Hemoglobin 11.3 g/dL (12.2-16.2); Lymphocytes # 1.7 K/mm3 (0.7-4.5); Lymphocytes % 19.6 % (10-50); Mean Corpuscular HGB Conc 32.3 g/dL (31.8-35.4); Mean Corpuscular Hemoglobin 28.9 pg (27.0-31.2); Mean Corpuscular Volume 89.3 fl (81-99); Mean Platelet Volume 7.2 fl (7.4-10.4); Monocytes # 0.4 K/mm3 (0.1-1.0); Monocytes % 4.2 % (1.7-9.3); Neutrophils # 6.2 K/mm3 (1.8-7.8); Neutrophils % 74.2 % (37.0-80.0); Platelet Count 328 K/mm3 (142-424); Red Blood Count 3.91 M/mm3 (4.20-5.40); Red Cell Distribution Width 13.7 % (11.5-17.5); White Blood Count 8.4 K/mm3 (4.8-10.8)
[2020-12-30 11:18] LABS: Amphetamine/Metha Screen,Urine Negative ng/ml (<1000)
[2020-12-30 11:19] LABS: Barbiturates Screen,Urine Negative ng/ml (<200)
[2020-12-30 11:20] LABS: Benzodiazepines Screen,Urine Negative ng/ml (<200); Cannabinoid Screen,Urine Negative ng/ml (<50)
[2020-12-30 11:21] LABS: Cocaine Screen,Urine Negative ng/ml (<300)
[2020-12-30 11:22] LABS: Methadone Screen,Urine Negative ng/ml (<300); Opiate Screen,Urine Negative ng/ml (<300)
[2020-12-30 11:23] LABS: Phencyclidine Screen,Urine Negative ng/ml (<25)
[2020-12-30 12:32] LABS: Anion Gap 14.3 mEq/L (5-15); Blood Urea Nitrogen 9 mg/dl (7-17); Calcium 9.4 mg/dl (8.4-10.2); Carbon Dioxide 32 mmol/L (22.0-30.0); Chloride 90 mmol/L (98-107); Estimated Glomerular Filt Rate 73 ml/min (>60); GFR (African American) 89 ML/MIN (>60); Glucose 107 mg/dl (74-100); Potassium 4.3 mmoL/L (3.5-5.1); Sodium 132 mmol/L (136-145)
== END ==
PROVIDERS: Visit Provider Anesthesiology
DX: Z01.812 Encounter for preprocedural laboratory examination (principal); Z20.822 Contact with and (suspected) exposure to COVID-19; M51.36 Other intervertebral disc degeneration, lumbar region
CPT/HCPCS: 36415; 80048; 80305; 85025; C9803; U0003; U0005

== ENCOUNTER 2020-12-31 06:59 | Day surgery (SDC) | payer MEDICARE, BC, SELFPAY ==
[2020-12-29 14:53] VITALS: BMI 25.8
[2020-12-31 07:24] VITALS: BP 145/77; PULSE 91; RESP 18; TEMP 36.6; O2SAT 94
--- NOTE | 2020-12-31 10:08 | P.PN_ITS ---
[facility] Anesthesia Checklist - Patient Identification Patient Identification: Arm Band - Structural Data Admitted From: Home Planned Operative Procedure/s: Intrathecal Pain Pump Catheter and Generator Placement Consent for Planned Operative Procedure(s) Verified: Yes Verified Documents: Surgical Consent, History and Physical - NPO Status Verified Time NPO: 00:00 - Additional verifications Anesthesia Reactions: No Hx Blood Transfusions: No Blood Transfusion Reaction: No - Airway Assessment C-Spine Mobility Assessed: Yes (mp2) TMJ Mobility Assessed: Yes Dentition: Good Dentition - Neurological Assessment Level of Consciousness: Awake, Alert - Anesthesia Plan Anesthesia Risk discussed: Yes Anesthesia Plan: Verified ASA Class: III Anesthesia Type: MAC [facility] History I have reviewed the patient's past medical history: Yes Medical History: Reports:: Asthma, Carotid Stenosis, Coronary Artery Disease, Diabetes Mellitus Type 2, Heart Murmur, Hyperlipidemia, Hypertension, Pa lpitations, Peripheral Artery Disease, Peripheral Vascular Disease, Valvular Heart Disease Denies:: Cancer, Diabetes Mellitus Type 1, Internal Pacemaker, Lung Disease, MRSA, Seizures *Have you ever received a pneumonia vaccine?: No *Have you received a flu vaccine this season?: No Other Medical History: Reports: Fibromyalgia. Denies: Blood Transfusion Reaction Anesthesia experience/problems:: nac Laterality Cases: Right: Carotid Endarterectomy, Carpal Tunnel Release, B ilateral: Tonsillectomy Other Surgeries: Yes: Angiogram, Appendectomy, Cardiac Catheterization, Cholecystectomy, Coronary Stent (3 stents total ), Dilation and Curettage, Hyst erectomy-Partial, Tubal Ligation, Other (endartectomy right). No: Pacemaker Amputation: No Fractures: No - *Social History Last grade of school completed: GED Smoking Status: Former smoker Tobacco Type: cigarettes # Packs/Day (cigarettes): 1 Alcohol Intake: never Alcohol Intake Frequency:: other Substance Use Type: denies use *Occupational Status:: disabled Housing: house Household Members: spouse, family *Travel in the last 8 weeks: None Family Hx:: Coronary Artery Disease, Heart Attack, Cancer
--- NOTE | 2020-12-31 10:24 | HMH.OPNOTE ---
Date of procedure: 12/31/20 Pre-op Diagnosis:: Degenerative disc disease of lumbar spine with lumbar radiculopathy symptoms Post-op Diagnosis:: Same Procedure performed:: Permanent placement intrathecal catheter for permanent placement of intrathecal pain pump Surgeon:: Clint Velasquez MD FISH CONSERVATIONIST:: Todd Oconnell Anesthesia: GETA Estimated blood loss (mL): 5 Clinical Note:: Patient is a pleasant 60-year-old white female who we are treating for low back pain with lumbar radiculopathy symptoms. She is failed all previous conservative treatments including physical therapy, injections, oral medications and she is not a surgical candidate. She has had a successful psychological evaluation and a successful intrathecal pump trial. She presents for permanent placement of her intrathecal pain pump today. Operative findings:: None Operative note:: Informed consent was obtained the risk and benefits of the procedure were explained to the patient. The patient was taken the operating room placed prone on the procedure table. She was prepped and draped in sterile fashion. C-arm fluoroscopy was used to view the lumbar spine. The skin and subcutaneous tissues adjacent to the L4-5 space was anesthetized using lidocaine. I made an incision and dissected down to the lumbar paraspinous fascia. I placed a 15-gauge spinal needle and advanced into the L4-5 interspace until clear CSF was obtained. After this, intrathecal catheter was inserted and advanced very easily to the T12 vertebral body. The catheter secured to the fascia with 2 anchoring devices and 2-0 Prolene. I prepared the pump with 20 mL of intrathecal morphine 5 mg/mL while Dr. Mullen prepared the pump pocket. I tunneled catheter from the back to the pump pocket and attached catheter to the pump. We were able to freely withdraw clear CSF through the side-port. The pump was placed in the pocket. Both incisions were irrigated with bacitracin solution. Both incisions were then closed with 2-0 Vicryl followed by 4-0 nylon. The wound VAC was placed over both incisions. The patient was placed also in an abdominal binder. The patient was taken recovery in stable condition. Patient tolerated procedure well with no complications. Pump was interrogated and started at 0.25 mg/day of intrathecal morphine. Patient was discharged home neurologically intact with good relief of pain symptoms. Plan and disposition: Follow-up with this patient in 1 week for wound check and adjustment. We will follow-up in 2 weeks for suture removal and adjustment again. Patient has any problems or questions she is to call us back in the pain clinic. Condition: stable Disposition: PACU Complications:: none
--- NOTE | 2020-12-31 10:27 | P.OP_ITS ---
Date of procedure: 12/31/20 Pre-op Diagnosis:: Generative disc disease of the lumbar spine with radiculopathy Post-op Diagnosis:: Same Procedure performed:: Placement of right pain pump generator Surgeon:: Dejan Mullen MD MATERIAL STRESS TESTER:: Douglas Nixon, Yoel Connors, Todd Oconnell, Da Santana, Anson Sandhu, Brett Ackerman, Other Anesthesia: MAC Estimated blood loss (mL): 5 Operative findings:: Not applicable Operative note:: Once adequate IV sedation was obtained by anesthesia the patient was placed prone on the operating table and her back and flank regions were prepped and draped in sterile fashion. Paraspinal incision made by Dr. Velasquez there which an intrathecal catheter was passed into the intrathecal space to the area desired by Dr. Lawrence. At this point a right flank incision was made orders made for pocket for placement of the reservoir. Both pockets irrigated with antibiotic solution.. Catheter passed in the paraspinal incision to the pocket incision utilized utilizing a tunneling device.. Catheter connected the generator which was placed in the pocket. CSF was aspirated from the generator noting patency of the system. Subcutaneous tissues closed with 2-0 Vicryl. Skin closed arm stitches of 4-0 nylon. Wound VAC dressings and a binder applied to the wound. The patient tolerated procedure well and was taken to the recovery room in stable condition. Upon recovery the patient be discharged home will follow up in 1 week remove the wound VAC system in 2 weeks remove the sutures. Antibiotics x1 week per protocol. The patient tolerated the procedure well Condition: stable Disposition: PACU Complications:: None
[2020-12-31 10:32] VITALS: BP 150/65; PULSE 93; RESP 18; TEMP 36.4; O2SAT 92
[2020-12-31 10:47] VITALS: BP 124/78; PULSE 85; RESP 18; TEMP 36.1; O2SAT 93
[2020-12-31 11:02] VITALS: BP 160/58; PULSE 85; RESP 18; O2SAT 92
[2020-12-31 11:17] VITALS: BP 131/71; PULSE 85; RESP 18; O2SAT 92
[2020-12-31 11:32] VITALS: BP 139/79; PULSE 86; RESP 18; O2SAT 93
[2021-01-01 07:48] LABS: POC Glucose,Bedside 120 (70-110)
== END 2020-12-31 11:40 | disposition home or self-care (01) ==
LOC: OR 07:01
PROVIDERS: PCP Internal Medicine Adolescent Medicine; Visit Provider Anesthesiology
DX: M51.16 Intervertebral disc disorders with radiculopathy, lumbar region (principal); I65.29 Occlusion and stenosis of unspecified carotid artery; I73.9 Peripheral vascular disease, unspecified; Z82.49 Family history of ischemic heart disease and other diseases of the circulatory system; I10 Essential (primary) hypertension; E78.5 Hyperlipidemia, unspecified; Z88.6 Allergy status to analgesic agent; Z79.899 Other long term (current) drug therapy
CPT/HCPCS: 62350; 62362; 82962; 96374; C1755; C1772; J3370

== ENCOUNTER → 2021-01-06 08:31 | Outpatient (POV) | payer MEDICARE, BC, SELFPAY ==
[2021-01-06 08:45] VITALS: BP 116/50; PULSE 88; RESP 20; O2SAT 97; BMI 25.0
--- NOTE | 2021-01-06 14:22 | HMH.PMPROC ---
- Procedure Date: 01/06/21 Time: 10:40 Anesthesiologist:: Kirsty Mailk APRN Complications:: None Pre-procedure Diagnosis:: Degenerative disc disease lumbar spine with lumbar radiculopathy symptoms Post-procedure Diagnosis:: Same Indications for Procedure:: Patient is a pleasant 60-year-old white female who presents today for intrathecal pain pump adjustment and for removal of intrathecal pain pump. She did undergo a trial on 12/12/2020 and had a successful trial. She did have a successful psychological evaluation as well. She did undergo implant. She is now on morphine at 0.25 mg/day with no side effects. She would like an increase today. She will have the wound VAC removed today. She is 1 week postoperative. Patient does rate her pain a 6 out of 10. She denies any side effects to the medication. [facility] #[id number] has been reviewed and is appropriate. Patient was previously on fentanyl Duragesic patch and has since stopped taking the medication. Physical exam General: Alert and oriented x3, no acute distress, pleasant and cooperative, [on room air] Lungs: Respirations even and unlabored, symmetrical chest expansion Eyes: PERRL Musculoskeletal: Flexion and extension of lumbar [spine] somewhat guarded secondary to pain, strength in upper and lower extremities [5/5], [antalgic gait noted] Neurological: Speech clear, [elevator constructor hydraulic equal], no gross sensory deficit Procedure Details:: Informed consent was obtained and the risk and benefits of the procedure were explained to the patient. Patient was taken to the procedure room where noninvasive monitoring was placed including noninvasive blood pressure cuff and pulse oximeter. Patient's pump was interrogated and was reprogrammed to morphine at 0.28 mg/day. The patient tolerated the procedure well with no complications. Plan and Disposition:: Patient's incision is well approximated, no redness, no drainage, no edema noted to site. Wound VAC was removed today. Sutures are intact. Patient was increased today. We will follow up with her in 2 weeks for suture removal and reevaluation of symptoms. We will give the patient PTC device and reprogram at that time. Patient does have a history of high doses of oral opiates along with most recently taking fentanyl Duragesic patches. She has been advised that it may take up to a month or longer for appropriate dosing for significant pain relief due to previous history of high morphine equivalents. She is in agreement. We will see her back in the clinic in 2 weeks. Risks and benefits of the medication have been explained in detail to the patient. If side effects do present with the medication, she has been advised to stop the medication immediately and call the clinic. The patient has been advised to consult with his/her primary care provider and pharmacist regarding drug-drug interaction of medications currently prescribed. Patient has been instructed to contact the clinic with any concerns before the next appointment. Dr. Velasquez has reviewed this note and agrees with this plan of care. This note was dictated using voice recognition software and make contain errors or omissions.
== END ==
PROVIDERS: Visit Provider Clinical Nurse Specialist Family Health
DX: M51.16 Intervertebral disc disorders with radiculopathy, lumbar region (principal); Z45.1 Encounter for adjustment and management of infusion pump
CPT/HCPCS: 62368; 99212; G0463

== ENCOUNTER → 2021-01-22 12:43 | Outpatient (POV) | payer MEDICARE, BC, SELFPAY ==
--- NOTE | 2021-01-22 13:06 | P.PCN_ITS ---
- Procedure Date: 01/22/21 Time: 13:06 Anesthesiologist:: Kirsty Malik APRN Complications:: None Pre-procedure Diagnosis:: Degenerative disc disease lumbar spine with lumbar radiculopathy symptoms Post-procedure Diagnosis:: Same Indications for Procedure:: Patient is a 61-year-old white female who presents today for intrathecal pain pump assessment and adjustment. She is here today to have her sutures removed. She did undergo trial and implant which was successful. She is getting significant relief. She rates her pain a 2 out of 10. She is having soreness around the incision site. Otherwise, she is doing well. She denies any side effects to the medication at this time. [facility] #[id number] has been reviewed and is appropriate. Morphine equivalent is 0. Physical exam General: Alert and oriented x3, no acute distress, pleasant and cooperative, [on room air] Lungs: Respirations even and unlabored, symmetrical chest expansion Eyes: PERRL Musculoskeletal: Flexion and extension of lumbar [spine] somewhat guarded secondary to pain, [antalgic gait noted] Neurological: Speech clear, no gross sensory deficit Integumentary: Incision well approximated, no redness, no drainage, no edema noted to site. Sutures removed per pulvi mixer operator Details:: Informed consent was obtained and the risk and benefits of the procedure were explained to the patient. Patient was taken to the procedure room where noninvasive monitoring was placed including noninvasive blood pressure cuff and pulse oximeter. Patient's pump was interrogated and was reprogrammed to morphine at 0.28 mg/day. PTC started at 0.02 mg up to 4 times daily. The patient tolerated the procedure well with no complications. Plan and Disposition:: We will plan to follow-up with the patient in 2 weeks. She has been instructed to contact clinic if she has any concerns for next appointment. She is doing well overall with her intrathecal therapy. Patient has been instructed to contact the clinic with any concerns before the next appointment. Dr. Velasquez has reviewed this note and agrees with this plan of care. This note was dictated using voice recognition software and make contain errors or omissions.
[2021-01-22 13:40] VITALS: BP 141/49; PULSE 86; RESP 18; O2SAT 98; BMI 25.7
== END ==
PROVIDERS: PCP Internal Medicine Adolescent Medicine; Visit Provider Clinical Nurse Specialist Family Health
DX: M51.16 Intervertebral disc disorders with radiculopathy, lumbar region (principal); Z45.1 Encounter for adjustment and management of infusion pump
CPT/HCPCS: 62368; 99212; G0463

== ENCOUNTER → 2021-02-05 14:11 | Outpatient (POV) | payer MEDICARE, BC, SELFPAY ==
[2021-02-05 14:19] VITALS: BP 168/76; PULSE 86; RESP 18; O2SAT 96; BMI 26.5
--- NOTE | 2021-02-05 14:44 | HMH.PMPROC ---
- Procedure Date: 02/05/21 Time: 14:44 Anesthesiologist:: Kirsty Malik APRN Complications:: None Pre-procedure Diagnosis:: Degenerative disc disease lumbar spine with lumbar radiculopathy Post-procedure Diagnosis:: same Indications for Procedure:: Patient is a pleasant 61-year-old white female who presents today for intrathecal pain pump adjustment. She is doing well with her intrathecal therapy. She does still have tenderness at the incision site but overall is feeling much better. She rates her pain a 6 out of 10. She would like an increase. She is continuing to wear her abdominal binder. Cory #[id number] has been reviewed and is appropriate. Drug screen is appropriate. Morphine equivalent is 0. Physical exam General: Alert and oriented x3, no acute distress, pleasant and cooperative Lungs: Respirations even and unlabored, symmetrical chest expansion Eyes: PERRL Musculoskeletal: Flexion and extension of lumbar [spine] somewhat guarded secondary to pain, [antalgic gait noted] Neurological: Speech clear, no gross sensory deficit Procedure Details:: Informed consent was obtained and the risk and benefits of the procedure were explained to the patient. Patient was taken to the procedure room where noninvasive monitoring was placed including noninvasive blood pressure cuff and pulse oximeter. Patient's pump was interrogated and was reprogrammed to increased to morphine at 0.33 mg/day. The patient tolerated the procedure well with no complications. Plan and Disposition:: We will see the patient back in 2 weeks for an adjustment once again. If she is getting relief with her intrathecal therapy she can cancel that appointment. We will also schedule her for we will see the patient back at the next intrathecal refill. Patient has been instructed to contact clinic if any questions or concerns before the next appointment. Dr. Velasquez has reviewed this note and agrees with this plan of care. This note was dictated using voice recognition software and make contain errors or omissions. First week of April. Patient has been instructed to contact the clinic she has any concerns for next appointment. Patient has been instructed to contact the clinic with any concerns before the next appointment. We will see the patient back in the clinic at the next intrathecal refill. Patient has been instructed to contact the clinic with any concerns before the next appointment. Dr. Velasquez has reviewed this note and agrees with this plan of care. This note was dictated using voice recognition software and make contain errors or omissions.
== END ==
PROVIDERS: Visit Provider Clinical Nurse Specialist Family Health
DX: M51.16 Intervertebral disc disorders with radiculopathy, lumbar region (principal); Z45.1 Encounter for adjustment and management of infusion pump
CPT/HCPCS: 62368

== ENCOUNTER → 2021-02-19 14:57 | Outpatient (POV) | payer MEDICARE, BC, SELFPAY ==
[2021-02-19 15:13] VITALS: BP 123/65; PULSE 87; RESP 18; O2SAT 96; BMI 25.7
--- NOTE | 2021-02-19 15:39 | HMH.PMPROC ---
- Procedure Date: 02/19/21 Time: 15:39 Anesthesiologist:: Kirsty Malik APRN Complications:: None Pre-procedure Diagnosis:: Degenerative disc disease lumbar spine with lumbar radiculopathy symptoms, worsening low back pain Post-procedure Diagnosis:: Same Indications for Procedure:: Patient is a 61-year-old white female who presents today for intrathecal pain pump adjustment. She does have morphine at 0.33 mg/day. She would like an increase. She is having low back pain that is worse in the low back area and radiating into the mid back area at this time. She rates her pain a 7 out of 10. She has also brought her PTC device for increased today. She denies any side effects to the medication. Cory #[id number] has been reviewed and is appropriate. Morphine equivalent is 0. She is also managed with gabapentin by Dr. Tejada. Drug screens have been appropriate. Physical exam General: Alert and oriented x3, no acute distress, pleasant and cooperative Lungs: Respirations even and unlabored, symmetrical chest expansion Eyes: PERRL Musculoskeletal: Flexion and extension of lumbar [spine] somewhat guarded secondary to pain, [antalgic gait noted] Neurological: Speech clear, no gross sensory deficit Procedure Details:: Informed consent was obtained and the risk and benefits of the procedure were explained to the patient. Patient was taken to the procedure room where noninvasive monitoring was placed including noninvasive blood pressure cuff and pulse oximeter. Patient's pump was interrogated and was reprogrammed to morphine at 0.38 mg per night for PTC at 0.04 mg up to 6 times daily.. The patient tolerated the procedure well with no complications. Plan and Disposition:: We will see the patient back in the clinic at the next intrathecal refill. If the patient has any change in symptoms or pain worsens she is to call the clinic. Otherwise, patient has been instructed to contact the clinic with any concerns before the next appointment. Dr. Velasquez has reviewed this note and agrees with this plan of care. This note was dictated using voice recognition software and make contain errors or omissions.
== END ==
PROVIDERS: Visit Provider Clinical Nurse Specialist Family Health
DX: M51.16 Intervertebral disc disorders with radiculopathy, lumbar region (principal); Z45.1 Encounter for adjustment and management of infusion pump
CPT/HCPCS: 62368

== ENCOUNTER → 2021-03-18 13:02 | Outpatient (CLI) | payer MEDICARE, BC, SELFPAY ==
--- NOTE | 2021-03-18 13:02 | CA_ITS ---
APPROVED REPORT Tankman: BENEDICT Laterality: Bilateral Study Quality: Good Indications: bilateral HUMBERTO RECA Doppler Spectral Velocity Analysis dICA (R) 139.70/28.40 cm/s dICA (L) 125.40/31.70 cm/s Oni (R) 127.60/33.40 cm/s Oni (L) 110.30/25.80 cm/s pICA (R) 152.60/29.60 cm/s pICA (L) 249.10/46.60 cm/s dCCA (R) 94.80/29.50 cm/s dCCA (L) 100.50/20.30 cm/s pCCA (R) 113.70/11.10 cm/s pCCA (L) 109.00/23.00 cm/s Vert (R) 94.20/17.10 cm/s Vert (L) 39.00/8.80 cm/s ICA/CCA 1.60 ICA/CCA 2.50 Findings Duplex evaluation demonstrates stenosis of the right proximal internal carotid artery in the range of 20-49% with PSV <140 cm/sec, EDV <100 cm/sec, and IC/CC Ratio <4.0.Duplex evaluation demonstrates stenosis of the left proximal internal carotid artery in the range of 50-69% with PSV =140 cm/sec, EDV <100 cm/sec, and IC/CC Ratio <4.0. Antegrade flow seen bilateral vertebral arteries. No significant change from exam of 10/01/20 Conclusion Duplex evaluation demonstrates stenosis of the right proximal internal carotid artery in the range of 20-49% with PSV <140 cm/sec, EDV <100 cm/sec, and IC/CC Ratio <4.0.Duplex evaluation demonstrates stenosis of the left proximal internal carotid artery in the range of 50-69% with PSV =140 cm/sec, EDV <100 cm/sec, and IC/CC Ratio <4.0. Antegrade flow seen bilateral vertebral arteries. No significant change from exam of 10/01/20 Electronically signed by : Daniele Ocampo MD 03/18/2021 17:50:16
== END ==
PROVIDERS: PCP Internal Medicine Adolescent Medicine; Visit Provider Urology
DX: R09.89 Other specified symptoms and signs involving the circulatory and respiratory systems; I65.23 Occlusion and stenosis of bilateral carotid arteries
CPT/HCPCS: 93880

== ENCOUNTER → 2021-04-01 14:10 | Outpatient (CLI) | payer MEDICARE, BC, SELFPAY ==
--- NOTE | 2021-04-01 14:14 | CA_ITS ---
APPROVED REPORT EXAM: Comprehensive 2D, Doppler, and color-flow Echocardiogram [employer] Specialist: Sravani Aldana RDCS Ht: 5 ft 4 in Wt: 150lbs BSA: 1.73 BP: 110/60 mmHg Indications: CAD,MR,SMOKER,EDEMA,HTN,DM,LANIER 2D Dimensions LVOT 1.77 cm (M/F) 1.5-2.5 M-Mode Dimensions RVDd 2.21 cm (0.9-2.6) LA Diam 2.76 cm (1.9-4.0) LVDd 4.18 cm (3.5-5.7) Ao Diam 3.36 cm (2.0-3.7) LVDs 2.98 cm (3.5-5.7) IVSd 0.84 cm (0.6-1.1) PWd 0.84 cm (0.6-1.1) EF (Teich) 55.70% FS 28.70% EDV (Teich) 77.70 mL TAPSE 2.15 (<1.7) ESV (Teich) 34.40 mL LV Diastology E Decel Time 263.00 (160-240 msec) E/A Ratio 0.8 MED E' 6.80 (< 7 cm/sec) E'/MED E' Ratio 11.35 (>14) LAT E' 7.00 (<10 cm/sec) E/LAT E' Ratio 11.03 (>14) Aortic Valve AI PHT 287.00 ms Mitral Valve MV E Max Junior. 77.00 (40-130 cm/s) MV A Velocity 94.00 (40-130 cm/s) E/A Ratio 0.82 MV Decel. Time 263.00 (160-240 ms) MV PHT 77.00 ms Left Ventricle Left atrium is mildly enlarged, left ventricle is normal size, mild concentric left ventricular hypertrophy, visually estimated ejection fraction 55% with no regional wall motion abnormality, grade 1 diastolic dysfunction seen without tissue Doppler evidence of raise left atrial pressure. Right Ventricle Right atrium and right ventricle are normal size and contractility. Aortic Valve Aortic valve is thickened and calcified without aortic stenosis, there is mild aortic insufficiency. Mitral Valve Mitral valve is minimally thickened, there is mild mitral regurgitation. Tricuspid Valve Tricuspid valve grossly normal, there is mild tricuspid regurgitation, tricuspid regurgitation jet velocity is inadequate for calculation of the right ventricular systolic pressure. Pulmonic Valve Pulmonic valve is poorly visualized. Great Vessels Aortic root is normal size. Inferior vena cava is normal size with normal inspiratory collapse. Pericardium No significant pericardial effusion noted. Conclusion 1. Mildly enlarged left atrium, normal left ventricular size, mild concentric left ventricular hypertrophy, visually estimated ejection fraction 55% with no regional wall motion abnormality, grade 1 diastolic dysfunction seen without tissue Doppler evidence of raise left atrial pressure. 2. Thickened and calcified aortic valve without aortic stenosis, there is mild aortic insufficiency. 3. Mild mitral and tricuspid regurgitation. 4. No significant pericardial effusion. 5. Inferior vena cava normal size with normal inspiratory collapse. Electronically signed by : Devin Salcido MD 04/01/2021 21:00:28
== END ==
PROVIDERS: PCP Internal Medicine Adolescent Medicine; Visit Provider Physician Assistant
DX: I25.10 Atherosclerotic heart disease of native coronary artery without angina pectoris (principal); R06.09 Other forms of dyspnea
CPT/HCPCS: 93306

== ENCOUNTER 2021-04-27 12:55 | Day surgery (SDC) | payer MEDICARE, BC, SELFPAY ==
[2021-04-27 13:08] VITALS: BP 182/70; PULSE 93; RESP 18; TEMP 36.2; O2SAT 97; BMI 26.5
[2021-04-27 13:18] VITALS: BP 138/61; PULSE 86; RESP 18; O2SAT 96
[2021-04-27 13:21] VITALS: PULSE 83; RESP 18; O2SAT 96
[2021-04-27 13:22] VITALS: BP 172/70; PULSE 82; RESP 18; O2SAT 92
--- NOTE | 2021-04-27 13:27 | HMH.PMPROC ---
- Procedure Date: 04/27/21 Time: 13:27 Anesthesiologist:: Kirsty Malik APRN Complications:: None Pre-procedure Diagnosis:: Degenerative disc disease of the lumbar spine with lumbar radiculopathy symptoms Post-procedure Diagnosis:: Same Indications for Procedure:: Patient is a pleasant 61-year-old female who presents today for intrathecal pain pump [refill] [and reprogram]. The patient is being treated for active disease of the lumbar spine with lumbar radiculopathy symptoms. Patient is currently being treated with morphine 5 mg/mL at a rate of 0.38 mg/day with PTC boluses of 0.4 mg every 4 hours. Patient denies any side effects from this medication. Patient says that she has been using her PTC boluses a lot. She is wanting an adjustment today. Patient rates pain a 9 out of 10. Drug screen is appropriate. Cory [id number] has been reviewed and is appropriate. Physical exam General: Alert and oriented x3, no acute distress, pleasant and cooperative, [on room air] Lungs: Respirations even and unlabored, symmetrical chest expansion Eyes: PERRL Musculoskeletal: Flexion and extension of lumbar [spine] somewhat guarded secondary to pain Neurological: Speech clear, no gross sensory deficit Procedure Details:: Informed consent was obtained and the risk and benefits of the procedure were explained to the patient. The patient was taken to the procedure room where noninvasive monitoring was placed including noninvasive blood pressure cuff and pulse oximeter. Patient's pump was interrogated. The area over the pump was cleansed with chlorhexidine as a cleansing solution. In sterile fashion the pump was accessed with a 22-gauge needle. Approximately 10.5 mls of the pump solution was removed and discarded appropriately. The pump was then refilled with 20 mL's of morphine 5 mg/mL. The needle was withdrawn and a bandage was placed over the puncture site. The infusion rate was reprogrammed at morphine 0.456 mg/day with PTC boluses of 0.044 mg every 4 hours. The patient tolerated well with no complication. Plan and Disposition:: We will see the patient back in the clinic at the next intrathecal refill. Patient has been instructed to contact the clinic with any concerns before the next appointment. Dr. Velasquez has reviewed this note and agrees with this plan of care. This note was dictated using voice recognition software and make contain errors or omissions.
[2021-04-27 15:48] LABS: Amphetamine/Metha Screen,Urine Negative ng/ml (<1000)
[2021-04-27 15:49] LABS: Barbiturates Screen,Urine Negative ng/ml (<200)
[2021-04-27 15:50] LABS: Benzodiazepines Screen,Urine Negative ng/ml (<200)
[2021-04-27 15:52] LABS: Cannabinoid Screen,Urine Negative ng/ml (<50); Cocaine Screen,Urine Negative ng/ml (<300)
[2021-04-27 15:53] LABS: Methadone Screen,Urine Negative ng/ml (<300); Opiate Screen,Urine Negative ng/ml (<300)
[2021-04-27 15:54] LABS: Phencyclidine Screen,Urine Negative ng/ml (<25)
[2021-05-12 09:20] LABS: Codeine Negative (Cutoff=100); Hydrocodone Negative (Cutoff=100); Hydromorphone Negative (Cutoff=100); Morphine Positive (.); Opiates Positive (.)
== END 2021-04-27 13:29 | disposition home or self-care (01) ==
LOC: SC.PAINP 12:58
PROVIDERS: PCP Nurse Practitioner Family; Visit Provider Clinical Nurse Specialist Family Health
DX: M51.16 Intervertebral disc disorders with radiculopathy, lumbar region (principal); Z45.1 Encounter for adjustment and management of infusion pump; I73.9 Peripheral vascular disease, unspecified; E78.5 Hyperlipidemia, unspecified; I10 Essential (primary) hypertension; J45.909 Unspecified asthma, uncomplicated; M79.2 Neuralgia and neuritis, unspecified; E11.9 Type 2 diabetes mellitus without complications
CPT/HCPCS: 62370; 80305; 80361; 80365; G0480

== ENCOUNTER → 2021-10-01 12:47 | Outpatient (CLI) | payer MEDICARE, BC, SELFPAY ==
--- NOTE | 2021-10-01 12:48 | CA_ITS ---
FINAL REPORT TECHNIQUE: Color Doppler, duplex Doppler and anton scale sonography of the bilateral neck vasculature was performed. Velocities were measured in the carotid arteries. Stenosis evaluation based on velocity criteria. CLINICAL HISTORY: HUMBERTO,HTN,HLD,PRIOR RT ENCARDECTOMY FINDINGS: The peak systolic velocity of the right common carotid artery is 93 cm/sec and internal carotid artery 160 cm/sec. The diastolic velocity in the internal carotid artery is 33 cm/sec. The ICA/CCA ratio is 1.7. Visually, a mild amount of plaque is seen. These findings are consistent with less than 50% stenosis. The external carotid artery is patent. The right vertebral artery is patent with antegrade flow. The peak systolic velocity of the left common carotid artery is 104 cm/sec and internal carotid artery 208 cm/sec. The diastolic velocity in the internal carotid artery is 40 cm/sec. The ICA/CCA ratio is 2.0. Visually, a moderate amount of plaque is seen. These findings are consistent with 50-69% stenosis. The external carotid artery is patent. The left vertebral artery is patent with antegrade flow. IMPRESSION: 50-69% left carotid stenosis. Less than 50% right carotid stenosis. Bilateral patent vertebral arteries. If indicated, CTA or MRA could further evaluate. Reviewed, Interpreted and Dictated by Ronnie Sandoval III, MD Transcribed by Rafita Garcia Authenticated and [facility]
== END ==
PROVIDERS: PCP Nurse Practitioner Family; Visit Provider Physician Assistant
DX: R06.00 Dyspnea, unspecified; R09.89 Other specified symptoms and signs involving the circulatory and respiratory systems; R42 Dizziness and giddiness; Z72.0 Tobacco use; Z82.49 Family history of ischemic heart disease and other diseases of the circulatory system
CPT/HCPCS: 93880

== ENCOUNTER → 2022-06-30 08:10 | Outpatient (CLI) | payer MEDICARE, SELFPAY ==
--- NOTE | 2022-06-30 08:17 | CT_ITS ---
FINAL REPORT CLINICAL HISTORY: H/O TOBACCO USE, previous smoker, quit 3 years ago , before that smoked for 42 years 1 04/19 ppd FINDINGS: Low-Dose Chest CT Axial images were obtained from the lung apex to the mid abdomen by computed tomography. Low-dose protocol was utilized. CTDI vol (mGy): 2.90 DLP (mGy-cm): 96.64 There is no axillary adenopathy. There is no hilar or mediastinal adenopathy. The heart is proper size. There are severe coronary artery calcifications. There is no pericardial or pleural effusion. Lung window images demonstrate several small ground-glass nodules in the left upper lobe including a 3 mm nodule in the posterior left upper lobe. There are mild changes of emphysema. Limited images of the upper abdomen demonstrate postoperative changes from cholecystectomy. IMPRESSION: Several small ground-glass nodules in the left upper lobe. Modifier S: Severe coronary artery calcifications. Lung RADS category 2S. Recommend 12 month follow-up low-dose chest CT. Reviewed, Interpreted and Dictated by Ronnie Sandoval III, MD Transcribed by Sparkle Woods Authenticated and [facility]
--- NOTE | 2022-06-30 08:19 | XR_ITS ---
FINAL REPORT TECHNIQUE: Bone densitometry calculations of the lumbar spine and left hip were obtained. CLINICAL HISTORY: post menopausal FINDINGS: DEXA BONE DENSITY AXIAL SKELETON Using L1-4, the bone mineral density of the spine is 1.056 g/cm2, corresponding to T-score of 0.1. Note these values may be falsely elevated secondary to hypertrophic change. Using the left hip, the bone mineral density of the total hip is 0.7930 g/cm2, corresponding to a T-score of -1.2. NOTE: T-score: Standard deviation compared with peak bone mass of young adult mean. *Following the recommendations of the International Society of Bone densitometry, classification of hip BMD is based on the lower of two T-scores; total hip or femoral neck. IMPRESSION: Diminished bone mineral density of the lumbar spine and left hip consistent with osteopenia. FRAX 10 year fracture risk is 0.3% for a hip fracture and 6.9% for a major osteoporotic fracture. Reviewed, Interpreted and Dictated by Ronnie Sandoval III, MD Transcribed by Sparkle Woods Authenticated and [facility]
== END ==
PROVIDERS: PCP Nurse Practitioner Family; Visit Provider Nurse Practitioner Family
DX: Z87.891 Personal history of nicotine dependence (principal); Z12.2 Encounter for screening for malignant neoplasm of respiratory organs; Z13.820 Encounter for screening for osteoporosis; Z78.0 Asymptomatic menopausal state
CPT/HCPCS: 71271; 77080

== ENCOUNTER → 2023-03-02 12:45 | Outpatient (CLI) | payer MEDICARE, SELFPAY ==
--- NOTE | 2023-03-02 | CA_ITS ---
APPROVED REPORT Exam: Pharmacologic Technologist: Roz Thomas, Ht: 5 ft 3 in Wt: 156 lbs BSA: 1.74 m2 HR: 83 bpm BP: 196/76 mmHg Rhythm: NSR Medical History Medications: Asa,,,,, Metformin,,,,, Gabapentin,,,,, Losartan,,,,, Atorvastatin,,,,, Carvedilol,,,,, Lasix,,,,, Albuterol,,,,, Plavix,,,,, DulOXETINE,,,,, BenaDRYL,,,,, LiNZESS,,,,, Stress Test Details Test: LEXISCAN Reason for pharmacologic stress test: arthritis. HR Resting HR: 85 bpm Max Heart Rate (APMHR): 158 bpm Max HR Achieved: 111 bpm Target HR (85% APMHR): 134 bpm % of APMHR: 70 Recovery HR: 89 bpm BP Resting BP: 196.0/76.0 mmHg Max BP: 206.0/82.0 mmHg Recovery BP: 194.0/71.0 mmHg ECG Resting ECG: NSR, low voltage QRS Stress ECG: No significant ST changes Arrhythmia: PVCs Clinical Exercise duration: 04:00 min Highest Stage Achieved: Stress ECG Conclusion Aminophylline 100mg slow IV given Symptoms: SOA, head discomfort, nausea, No CP. Arrhythmias/Ectopy: Occasional PVC. ST-T Changes: No significant ST changes. Conclusion: Unremarkable Lexiscan stress test. Myoview images reported separately. Of note, the patient was markedly hypertensive at baseline. She was recommended to monitor her BP at home & see cardiology clinic if it remains elevated. Test Summary REST . . . . . . . Resting REST 06:10 . . 85 . 196/ 76 . . Stage 1 01:00 . . 95 . . . . Stage 2 01:00 . . 101 . . . . Stage 3 01:00 . . 101 . 206/ 82 . . Stage 4 01:00 . . 106 . . . Stop exercise at 04:00 RECOVERY 01:00 . . 102 . . . . RECOVERY 02:00 . . 94 . . . . RECOVERY 03:00 . . 94 . . . . RECOVERY 04:00 . . 91 . . . . RECOVERY 05:00 . . 93 . 191/ 61 . . RECOVERY 06:00 . . 87 . 194/ 71 . . RECOVERY 07:00 . . 89 . 194/ 71 . . RECOVERY 08:00 . . 90 . 194/ 71 . . RECOVERY 08:31 . . 88 . 194/ 71 . . Electronically signed by : Francesca Wilson MD 03/13/2023 21:43:53
--- NOTE | 2023-03-02 12:45 | CA_ITS ---
FINAL REPORT TECHNIQUE: Real-time imaging was performed of the extracranial carotid arteries in transverse and longitudinal planes, with color duplex evaluation of blood flow velocity. Spectral analysis was performed. The cervical vertebral arteries were also examined. CLINICAL HISTORY: corby COMPARISON: None FINDINGS: NASCET technique is utilized for stenosis evaluation. Right carotid system (centimeters/second): CCA: 80 ICA: 164 ECA: 126 Vertebral artery: Antegrade ICA/CCA ratio: 2 Moderate plaque is identified at the bifurcation. Left carotid system (centimeters/second): CCA: 108 ICA: 289 ECA: 268 Vertebral artery: Antegrade ICA/CCA ratio: 3.32 Moderate to severe plaque is identified at the bifurcation. IMPRESSION: Less than 50% right ICA stenosis. 50-69% left ICA stenosis. Antegrade flow bilateral vertebral arteries. Reviewed, Interpreted and Dictated by Tani Reddy MD Transcribed by Emily Anand Authenticated and [facility]
--- NOTE | 2023-03-02 12:45 | CA_ITS ---
APPROVED REPORT EXAM: Comprehensive 2D, Doppler, and color-flow Echocardiogram Rod Welder: Kristina Kathleen, RCS, RVS Ht: 5 ft 3 in Wt: 156lbs BSA: 1.74 BP: 115/72 mmHg Indications: CP, Back injury, HUMBERTO, Diastolic dysfunction, PVD, Murmur, Ex-smoker, DM, SOB, Palpitations 2D Dimensions Aortic Root 2.81 cm F: 2.7 - 3.3 LA Volume 36.90 mL Left Atrium 3.49 cm F: 2.7 - 3.8 LA Volume Index 21.21 mL/m2 (M/F) 16-34 LVOT 1.85 cm (M/F) 1.5-2.5 M-Mode Dimensions RVDd 1.74 cm (0.9-2.6) LA Diam 3.26 cm (1.9-4.0) LVDd 4.35 cm (3.5-5.7) Ao Diam 3.06 cm (2.0-3.7) LVDs 2.94 cm (3.5-5.7) IVSd 1.04 cm (0.6-1.1) PWd 0.94 cm (0.6-1.1) EF (Teich) 61.00% EPSs 0.87 cm FS 32.40% EDV (Teich) 85.40 mL TAPSE 2.52 (<1.7) ESV (Teich) 33.30 mL LV Diastology E Decel Time 133.00 (160-240 msec) E/A Ratio 0.91 MED E' 8.50 (< 7 cm/sec) MED A' 11.00 cm/s E'/MED E' Ratio 12.24 (>14) LAT E' 8.20 (<10 cm/sec) LAT A' 9.70 cm/s E/LAT E' Ratio 12.68 (>14) Aortic Valve LVOT Max 113.00 (70-110 cm/s) LVOT VTI 23.17 cm AI PHT 240.00 ms Mitral Valve MV A Velocity 114.00 (40-130 cm/s) E/A Ratio 0.91 MV Decel. Time 133.00 (160-240 ms) Tricuspid Valve TR P. Velocity 286.00 cm/s RAP Estimate 10.00 mmHg RVSP 42.70 mmHg Left Ventricle The left ventricle is normal size. The left ventricular systolic function is normal. The left ventricular ejection fraction is within the normal range. There is increased LV wall thickness. There is normal LV segmental wall motion. The left ventricular diastolic function is normal. LVEF is 60%. Right Ventricle The right ventricle is normal size. The right ventricular systolic function is normal. Atria The left atrium size is normal. The right atrium size is normal. There is no Doppler evidence of interatrial shunt. Aortic Valve The aortic valve is mildly thickened. There is no aortic valvular stenosis. Moderate aortic regurgitation. Mitral Valve The mitral valve is normal in structure. No evidence of mitral valve stenosis. Trace mitral regurgitation. Tricuspid Valve The tricuspid valve leaflets are thin and pliable. Mild tricuspid regurgitation. RVSP is 30-35 mmHg. Pulmonic Valve The pulmonary valve is normal in structure. Trace pulmonic regurgitation. Great Vessels The aortic root is normal in size. The ascending aorta is not well-visualized. IVC is normal in size and collapses >50% with inspiration. Pericardium There is no pericardial effusion. Other Information Study Quality: Fair Conclusion Normal biventricular systolic function. Normal LV dimensions in systole and diastole. Moderate AI. RVSP is 30-35 mmHg. Electronically signed by : Francesca Wilson MD 03/13/2023 20:15:12
--- NOTE | 2023-03-02 12:45 | NM_ITS ---
APPROVED REPORT Exam: Nuclear Stress Test Indication: chest pain..soa..palpitations..fatigue Patient Location: Outpatient Stress Tech: Roz Sánchez MT Tech:ESTRELLA Torres RT(R)(N) Ht: 5 ft 3 in Wt: 156 lbs Bra Size: 32b HR: 85 bpm BP: 196/76 mmHg BSA: 1.74 m2 Rhythm: NSR TID: 0.98 BMI: 27.6 History: chest pain..soa..palpitations..fatigue Procedure: Patient received 0.4 mg of intravenous Lexiscan, resting heart rate 85 bpm, resting blood pressure 196/76 mmHg, with Lexiscan maximum heart rate achieved was 111 bpm which is 85 % of the maximum predicted heart rate and blood pressure was 206/82 mmHg. With Lexiscan, patient denied any complaint of chest pain. Cardiac Stress and Resting SPECT Images: Cardiac Stress and Resting SPECT images were obtained using technetium 99m Myoview 32.6 mCi stress and 10.50 mCi at rest. Resting and stress imaging in supine and prone positions demonstrate a medium sized, mild, reversible perfusion defect in the mid to distal inferior, including the inferoapical, LV wall. Gated imaging demonstrates normal global and regional LV systolic function. LVEF is calculated at 63%. Conclusion: Medium sized, mild, reversible perfusion defect in the mid to distal inferior, including the inferoapical, LV wall. Findings are suggestive of reversible ischemia. Gated imaging demonstrates normal global and regional LV systolic function. LVEF is calculated at 63%. Of note, the patient was noted to be markedly hypertensive at baseline (SBP > 190 mmHg) and requires BP control. Electronically signed by : Francesca Wilson MD 03/13/2023 21:46:51
== END ==
LOC: RAD 12:45
PROVIDERS: PCP Nurse Practitioner Family; Visit Provider Nurse Practitioner
DX: E11.9 Type 2 diabetes mellitus without complications (principal); I25.118 Atherosclerotic heart disease of native coronary artery with other forms of angina pectoris; I35.1 Nonrheumatic aortic (valve) insufficiency; I65.29 Occlusion and stenosis of unspecified carotid artery; I73.9 Peripheral vascular disease, unspecified; R09.89 Other specified symptoms and signs involving the circulatory and respiratory systems; I35.0 Nonrheumatic aortic (valve) stenosis; Z79.84 Long term (current) use of oral hypoglycemic drugs; Z87.891 Personal history of nicotine dependence
CPT/HCPCS: 78452; 93017; 93018; 93306; 93880; A9502; J0280; J2785

== ENCOUNTER 2023-04-15 10:32 | Day surgery (SDC) | payer MEDICARE, SELFPAY ==
[2023-04-13 11:56] VITALS: BMI 26.7
[2023-04-15 10:47] VITALS: BP 147/53; PULSE 92; RESP 18; TEMP 37; O2SAT 94
[2023-04-15 11:01] LABS: POC Glucose,Bedside 115 (70-110)
--- NOTE | 2023-04-15 11:03 | EXP.ANES.CKL ---
[facility] Disclaimer: The information contained in this section may have been updated after the patient was seen, as this information can be updated by other users. Medical History Abdominal pain Abnormal stress test Angina pectoris Aortic insufficiency Celiac artery stenosis Diastolic dysfunction Dizziness Dyspnea Left carotid bruit Palpitations Surgical History History of colonoscopy Family History Other Family history of cancer Family history of diabetes mellitus type II Social History Smoking Status: Former smoker tobacco type: cigarettes packs per day: 1 second hand exposure: No alcohol intake: never substance use type: denies use current occupational status: disabled Travel in the last 8 weeks: Inside the [place] household members: spouse and family housing: house current occupational exposures/hazards: No caffeine: Yes [facility] Anesthesia Checklist Patient Identification Patient Identification: Arm Band Structural Data Admitted From: Home Planned Operative Procedure/s: EGD/Colonoscopy Consent for Planned Operative Procedure(s) Verified: Yes Verified Documents: Surgical Consent and History and Physical NPO Status Verified Time NPO: 00:00 Additional verifications Anesthesia Reactions: No Hx Blood Transfusions: No Blood Transfusion Reaction: No Airway Assessment Mallampati Score:: Class II C-Spine Mobility Assessed: Yes TMJ Mobility Assessed: Yes Dentition: Dentures-good fit (upper dentures removed) Neurological Assessment Level of Consciousness: Awake and Alert Anesthesia Plan Anesthesia Risk discussed: Yes Anesthesia Plan: Verified ASA Class: III Anesthesia Type: MAC
[2023-04-15 11:09] VITALS: O2SAT 94
--- NOTE | 2023-04-15 11:37 | HMH.SCOPE ---
Procedure: Date: 04/15/23 Patient Date of :: 1960 Procedure Performed:: Esophagogastroduodenoscopy with biopsies Aborted colonoscopy Indications:: Patient is a 63-year-old female with history of celiac stenosis status post stenting, carotid artery stenosis, aortic insufficiency, coronary artery disease, peripheral artery disease, diabetes, hypertension, hyperlipidemia, family history of colon cancer in her father referred by Yarelis Nichols for EGD and colonoscopy apparently due to Hemoccult positivity and iron deficiency anemia. She has previously undergone celiac artery stenting in 2018. She is on aspirin and Plavix. She has had some black stools and rare rectal bleeding. She is on iron sulfate. Patient underwent initial screening colonoscopy by Dr. Oscar Parsons on 07/12/2016. She had a 10 mm cecal polyp. She had a fair preparation. She is on Linzess for chronic constipation. He recommended follow-up colonoscopy in 2 years (2019). Performing Provider:: Ronnie Kelsey MD Referring Provider:: Yarelis Nichols Sedation:: MAC sedation Procedure:: Patient history was obtained and appropriate physical examination was performed. Patient's medications and allergies were reviewed. Informed consent was obtained after explaining the benefits, alternatives, and risks of the procedure including, but not limited to, bleeding, perforation, missed lesions, and adverse reaction to anesthesia medications. Patient was transported to endoscopy procedure room. Patient was connected to monitoring devices. Throughout the procedure the patient's blood pressure, pulse, and oxygen saturations were monitored continuously. Patient identification and planned procedure were verified by the staff. Attention was first turned to upper endoscopy. Olympus endoscope was inserted via the oropharynx. Esophagus was cannulated. There was some minor tortuosity to the esophagus consistent with esophageal dysmotility. Gastroesophageal junction was encountered at 40 cm. Stomach was cannulated and insufflated. Retroflexion was performed which revealed no evidence of any significant hiatal hernia. There were a few diffuse polyps consistent with fundic gland polyps. There was moderate regional gastritis within the mid body of the stomach. This was nonerosive. There was linear gastropathy in the antrum. Pylorus was traversed. Duodenum appeared normal. Biopsy was obtained within the gastric antrum. Biopsy was obtained of the body of the stomach. Biopsy was obtained of presumed fundic gland polyp. Stomach was desufflated and the endoscope was withdrawn. Next attention was turned to colonoscopy. Digital anorectal exam was performed. Variable stiffness Olympus colonoscope was inserted and advanced. Immediately there was particulate liquid and some formed stool encountered. High-volume irrigation and suctioning was performed as the colonoscope was advanced. Stool was encountered throughout the colon. Visualization was unable to be achieved despite high-volume irrigation and suctioning. Colonoscope was likely advanced to the transverse colon but was not advanced further due to poor visualization. Colonoscope was then withdrawn. . . Findings:: Findings consistent with mild esophageal dysmotility Gastroesophageal junction at 40 cm Moderate nonerosive gastritis mid body Mild linear gastropathy in the antrum Poor colonic preparation without visualization Recommendations:: Needs repeat colonoscopy with alternate multiday aggressive bowel prep Complications:: None immediately apparent Estimated blood obtained (mL): 1 Colonoscopy Component Colonoscopy Component Was a colonoscopy performed during today's procedure?: Yes Recommended follow up colonoscopy of at least 10 years?: No If no, follow up colonoscopy recommended in ___ years?: See above Reason for not recommending >/= 10 yr follow-up interval?: See above
[2023-04-15 11:38] VITALS: BP 108/48; PULSE 81; RESP 17; TEMP 36.1; O2SAT 92
[2023-04-15 11:48] VITALS: BP 118/57; PULSE 84; RESP 17; O2SAT 93
[2023-04-15 11:58] VITALS: BP 104/45; PULSE 79; RESP 16; O2SAT 97
[2023-04-15 12:03] VITALS: BP 113/50; PULSE 78; RESP 17; O2SAT 98
== END 2023-04-15 12:09 | disposition home or self-care (01) ==
PROVIDERS: PCP Nurse Practitioner Family; Visit Provider Surgery
PROC: 0DJ08ZZ Inspection of Upper Intestinal Tract, Via Natural or Artificial Opening Endoscopic (ICD-10-PCS; CPT 43235; principal; 2023-04-15 11:30)
DX: D50.9 Iron deficiency anemia, unspecified (principal); R19.5 Other fecal abnormalities; Z79.02 Long term (current) use of antithrombotics/antiplatelets; Z86.010 Personal history of colon polyps; Z80.0 Family history of malignant neoplasm of digestive organs; K22.4 Dyskinesia of esophagus; Z91.199 Patient's noncompliance with other medical treatment and regimen due to unspecified reason; K31.89 Other diseases of stomach and duodenum; E11.9 Type 2 diabetes mellitus without complications
CPT/HCPCS: 43239; 45378; 82962; 88305

== ENCOUNTER 2023-04-21 07:47 | Day surgery (SDC) | payer MEDICARE, SELFPAY ==
[2023-04-21] VITALS (17 sets, daily range): BP systolic 156–186; BP diastolic 64–83; PULSE 84–93; RESP 15–18; TEMP 36.6; O2SAT 94–100; BMI 26.7
--- NOTE | 2023-04-21 07:10 | IR_ITS ---
APPROVED REPORT Patient Location: Outpatient [facility]itness Coordinator: ESTRELLA Cuellar RT (R) PROCEDURES Left heart catheterization Left ventriculogram Selective coronary angiogram Bilateral selective renal angiography Catheter placement in the infrarenal abdominal aorta Infrarenal abdominal aortogram Repositioning of the catheter in the abdominal aorta Bilateral iliofemoral runoff INDICATION Abnormal Myoview, Angina pectoris, Known peripheral vascular disease, [place] claudication class III, Hypertension suspect renovascular hypertension from renal artery stenosis Informed consent was obtained prior to the procedure. COMPLICATIONS NONE Estimated Blood Loss: LESS THAN 10 ML TECHNIQUE One percent lidocaine was used to anesthetize the right groin. The right femoral artery was accessed via the Seldinger technique. A 5-Telugu sheath was placed in the right femoral artery. The JL-4 and JR-4 catheter was also used to perform left heart catheterization left ventriculogram and selective coronary angiogram. The JR4 catheter was used to perform bilateral selective renal angiography. At the end the diagnostic angiogram the pigtail catheter was advanced to the abdominal aorta and infrarenal abdominal aortography was performed. The catheter was then repositioned and bilateral iliofemoral runoff was performed. At the end the procedure the apparatus was removed the patient was transferred to the postop holding in stable condition for sheath removal ANGIOGRAPHIC RESULTS The left main artery Normal The left anterior descending artery Is proximally normal and has mid vessel 10 to 20% stenoses. The LAD wraps the apex and supplies a large portion of the inferior wall The circumflex artery Nondominant with a proximal eccentric 40 to 50% stenosis The right coronary artery Is dominant however small caliber with a mid vessel 40 to 50% stenosis in a vessel proximally 1.75 to 2 mm in diameter The GOMEZ ventriculogram reveals Normal to hyperdynamic at 65 to 70% The left ventricular end-diastolic pressure 15 mmHg Right renal artery singular normal Left renal artery singular normal Infrarenal abdominal aorta is moderately calcified with stenosis greater than 20% Right common iliac artery is widely patent with mild 10 to 20% calcified stenosis. The right internal iliac artery is proximally occluded. The right external iliac artery is calcific with mild atheromatous plaque and extends in to a widely patent right common femoral artery. Right profunda femoris artery widely patent. Right superficial femoral artery is patent however there is diffuse 30 to 40% calcific stenosis. At Conor's canal there is a long tubular 50% stenosis however the caliber of the popliteal artery is small. There is inline flow throughout the popliteal artery into a patent anterior tibialis artery peroneal artery and posterior tibialis artery. There appears to be slow inline flow into the right foot Left common iliac artery has a stent in the proximal segment which is widely patent with excellent proximal distal transitioning. The left internal iliac artery is patent. The left external iliac artery is patent into a mildly diseased left common femoral artery with 20 to 30% stenoses. The left profunda femoris artery is patent. The left superficial femoral artery has mild atheromatous plaque however there the entire vessel is small caliber. At Chinle's canal there is 60% stenoses. The popliteal artery has an additional 70 to 80% hazy stenosis distal to Chinle's canal. The left anterior tibialis artery is patent. The left peroneal artery is proximally occluded while the left posterior tibialis artery also appears to be proximally occluded. There is single-vessel runoff in the left foot IMPRESSION Coronary artery disease as described above Normal slightly hyperdynamic ventricle Borderline normal to high LVEDP Normal renal arteries Moderate calcification with mild stenosis in the infrarenal abdominal aorta Small caliber right SFA and right popliteal artery with moderate to severe disease at Conor's canal accompanied by slow three-vessel runoff to the ankle Small caliber left SFA with moderate to severe stenosis at Chinle's canal and distal [facility] with single-vessel runoff to the left foot PLAN 1. Medical management for coronary artery disease 2. Better control of hypertension 3. Avoidance of tobacco products 4. LDL less than 55 to be achieved with high intensity statin 5. Recommend Xarelto 2.5 twice daily plus aspirin 81 mg a day for probably vascular disease 6. Strongly encourage medical management of the left SFA and left popliteal artery. These are small caliber vessels and have a high likelihood for early restenosis. The arteries are currently patent and with appropriate risk factor modification of physical therapy the patency of the [place] vessel should greatly exceed the patency of any form of percutaneous revascularization Electronically signed by : Fred Yap MD 04/21/2023 10:11:22
[2023-04-21 08:23] LABS: Basophils % 0.6 % (0.1-2.0); Eosinophils # 0.2 K/mm3 (0.0-0.4); Eosinophils % 2.3 % (0.1-12.0); Hematocrit 32.6 % (37.0-47.0); Hemoglobin 10.5 g/dL (12.2-16.2); Lymphocytes # 1.5 K/mm3 (0.7-4.5); Lymphocytes % 21.5 % (10-50); Mean Corpuscular HGB Conc 32.3 g/dL (31.8-35.4); Mean Corpuscular Hemoglobin 27.2 pg (27.0-31.2); Mean Corpuscular Volume 84.2 fl (81-99); Mean Platelet Volume 7.6 fl (7.4-10.4); Monocytes # 0.4 K/mm3 (0.1-1.0); Monocytes % 5.7 % (1.7-9.3); Neutrophils # 4.8 K/mm3 (1.8-7.8); Neutrophils % 69.7 % (37.0-80.0); Platelet Count 323 K/mm3 (142-424); Red Blood Count 3.87 M/mm3 (4.20-5.40); Red Cell Distribution Width 18.2 % (11.5-17.5); White Blood Count 6.9 K/mm3 (4.8-10.8)
[2023-04-21 08:30] LABS: Anion Gap 12.3 mEq/L (5-15); Blood Urea Nitrogen 9 mg/dl (7-17); Calcium 8.4 mg/dl (8.4-10.2); Carbon Dioxide 31 mmol/L (22.0-30.0); Chloride 92 mmol/L (98-107); Creatinine Clearance Estimated 63 mL/min (50-200); Estimated Glomerular Filt Rate 73 ml/min (>60); GFR (African American) 88 ML/MIN (>60); Glucose 129 mg/dl (74-100); Potassium 4.3 mmoL/L (3.5-5.1); Sodium 131 mmol/L (136-145)
[2023-04-21] MEDS: FAMOTIDINE 20MG/2ML VIAL 20 MG IV (09:28)
[2023-04-21] MEDS: METHYLPREDNISOLONE SOD SUCC 125MG VIAL 125 MG IM (09:28)
[2023-04-21] MEDS: diphenhydrAMINE 50MG/ML VIAL 50 MG IV (09:29)
[2023-04-21] MEDS: 0.9 % SODIUM CHLORIDE 500 ML 25 ML IV (09:29)
[2023-04-21] MEDS: LIDOCAINE 1% 10ML MDV 20 ML IJ (09:29)
[2023-04-21] MEDS: HEPARIN 1,000 UNITS/500ML NS (CATH LAB) 3000 UNIT IV (09:29)
[2023-04-21] MEDS: MIDAZOLAM HCL 1MG/1ML 5ML VIAL 1 MG IV (10:01)
[2023-04-21] MEDS: FENTANYL 100MCG/2ML VIAL 50 MCG IV (10:01)
[2023-04-21] MEDS: IOHEXOL-240 100ML BOTTLE 140 ML IV (10:23)
[2023-04-21] MEDS: IOPAMIDOL-370 (76%);100ML BOTTLE 95 ML IV (10:23)
== END 2023-04-21 14:05 | disposition home or self-care (01) ==
PROVIDERS: PCP Nurse Practitioner Family; Visit Provider Internal Medicine
DX: I70.1 Atherosclerosis of renal artery (principal); I77.1 Stricture of artery; I74.5 Embolism and thrombosis of iliac artery; I25.118 Atherosclerotic heart disease of native coronary artery with other forms of angina pectoris; I15.0 Renovascular hypertension; E11.9 Type 2 diabetes mellitus without complications; E78.5 Hyperlipidemia, unspecified; I10 Essential (primary) hypertension; I70.213 Atherosclerosis of native arteries of extremities with intermittent claudication, bilateral legs; I77.4 Celiac artery compression syndrome; R07.9 Chest pain, unspecified; R94.39 Abnormal result of other cardiovascular function study; I70.92 Chronic total occlusion of artery of the extremities
CPT/HCPCS: 36247; 36252; 75716; 80048; 85025; 93458; 99152; 99153; C1725; C1769; C1894; J1644; Q9966; Q9967

== ENCOUNTER 2023-11-09 08:35 | Outpatient (CLI) | payer MEDICARE, SELFPAY ==
[2023-11-09 09:19] LABS: Basophils # 0.1 K/mm3 (0-0.2); Basophils % 1.3 % (0.1-2.0); Eosinophils # 0.2 K/mm3 (0.0-0.4); Eosinophils % 3.1 % (0.1-12.0); Hematocrit 36.4 % (37.0-47.0); Hemoglobin 11.5 g/dL (12.2-16.2); Lymphocytes # 1.1 K/mm3 (0.7-4.5); Lymphocytes % 20.4 % (10-50); Mean Corpuscular HGB Conc 31.7 g/dL (31.8-35.4); Mean Corpuscular Hemoglobin 29.7 pg (27.0-31.2); Mean Corpuscular Volume 93.9 fl (81-99); Monocytes # 0.3 K/mm3 (0.1-1.0); Monocytes % 6.1 % (1.7-9.3); Neutrophils # 3.7 K/mm3 (1.8-7.8); Neutrophils % 69.2 % (37.0-80.0); Platelet Count 256 K/mm3 (142-424); Red Blood Count 3.88 M/mm3 (4.20-5.40); Red Cell Distribution Width 13.5 % (11.5-17.5); White Blood Count 5.3 K/mm3 (4.8-10.8)
[2023-11-09 10:13] LABS: Anion Gap 12.6 mEq/L (5-15); Blood Urea Nitrogen 12 mg/dl (7-17); Calcium 9.2 mg/dl (8.4-10.2); Carbon Dioxide 32 mmol/L (22.0-30.0); Chloride 95 mmol/L (98-107); Estimated Glomerular Filt Rate 56 ml/min (>60); GFR (African American) 68 ML/MIN (>60); Glucose 220 mg/dl (74-100); Potassium 4.6 mmoL/L (3.5-5.1); Sodium 135 mmol/L (136-145)
== END 2023-11-09 23:59 | disposition home or self-care (01) ==
LOC: LAB 08:36
PROVIDERS: PCP Internal Medicine Adolescent Medicine; Visit Provider Nurse Practitioner
DX: D64.9 Anemia, unspecified (principal); I10 Essential (primary) hypertension
CPT/HCPCS: 36415; 80048; 85025

== ENCOUNTER 2023-11-14 07:58 | Outpatient (CLI) | payer MEDICARE, SELFPAY ==
--- NOTE | 2023-11-14 08:00 | CA_ITS ---
FINAL REPORT TECHNIQUE: Grayscale, color Doppler and duplex Doppler ultrasound of the kidneys, aorta and renal arteries was performed. Multiple velocities were measured. CLINICAL HISTORY: HTN,DM COMPARISON: None FINDINGS: Aorta velocity: 222 cm/sec Right kidney: 8.9 cm. No evidence of hydronephrosis or mass. Right intrarenal RI: 0.79-0.86 Right renal artery velocity: 180 cm/sec. Right RAR (Renal artery-Aortic Ratio): 0.81 Left Kidney: 10.2 cm. No evidence of hydronephrosis or mass. Left intrarenal RI: 0.81-0.90 Left renal artery velocity: 173 cm/sec. Left RAR (Renal Artery-Aortic Ratio): 0.78 IMPRESSION: No evidence of significant renal artery stenosis. CT angiogram or postcontrast MR angiogram would be more sensitive for evaluation of possible renal artery stenosis. Reviewed, Interpreted and Dictated by Brittany Gerber MD Transcribed by Marlen Jeffery Authenticated and [facility]
--- NOTE | 2023-11-14 08:34 | US_ITS ---
FINAL REPORT CLINICAL HISTORY: I10 - Essential (primary) hypertension COMPARISON: None FINDINGS: RENAL ULTRASOUND Ultrasound images of the kidneys were obtained. Limited images of the liver parenchyma demonstrates normal echogenicity. The right kidney measures 9.1 cm in length. It is normal echogenicity. There is no hydronephrosis. The left kidney measures 10.6 cm in length. It is normal echogenicity. There is no hydronephrosis. IMPRESSION: Normal renal ultrasound. Reviewed, Interpreted and Dictated by Brittany Gerber MD Transcribed by Marlen Jeffery Authenticated and [facility]
== END 2023-11-14 23:59 | disposition home or self-care (01) ==
LOC: RT 08:00
PROVIDERS: PCP Internal Medicine Adolescent Medicine; Visit Provider Nurse Practitioner
DX: I10 Essential (primary) hypertension (principal); Z87.891 Personal history of nicotine dependence; Z79.899 Other long term (current) drug therapy
CPT/HCPCS: 76770; 93976

== ENCOUNTER 2023-11-30 08:30 | Outpatient (POV) | payer MEDICARE, SELFPAY ==
--- NOTE | 2023-11-30 09:35 | P.PCN_ITS ---
Procedure Date: 11/30/23 Time: 09:35 Anesthesiologist:: Blanca Blood APRN Complications:: None Pre-procedure Diagnosis:: Degenerative disc disease of the lumbar spine with lumbar radiculopathy symptoms Post-procedure Diagnosis:: Same Indications for Procedure:: Patient is a pleasant 63-year-old female who presents today for intrathecal adjustment and reprogram. Today she rates her pain a 5 out of 10. Patient denies any new trauma or injury. She does state that her current pump medic ation is helping. She is currently managed with morphine 5 mg/mL with a daily dose of 0.7315 mg/day. She denies any side effects from this medication. She is requesting an adjustment. Patient is a at home refill client's with [facility]. Her Cory has been reviewed and is appropriate. Physical Exam: General: Alert and oriented x3, no acute distress, pleasant and cooperative Lungs: Respirations even and unlabored, symmetrical chest expansion Eyes: PERRL Musculoskeletal: Flexion and extension of lumbar [spine] somewhat guarded secondary to pain, [antalgic gait noted] Neurological: Speech clear, no gross sensory deficit Procedure Details:: Informed consent was obtained and the risk and benefits of the procedure were explained to the patient. Patient was taken to the procedure room where noninvasive monitoring was placed including noninvasive blood pressure cuff and pulse oximeter. Patient's pump was interrogated and was reprogrammed to m orphine 0.84 mg/day. The patient tolerated the procedure well with no complications. Plan and Disposition:: Patient tolerated her intrathecal increase with no complications and was discharged neurologically intact. I did discuss with patient that we will have to start having the [facility] patients be filled in clinic again due to recent legislation changes. Patient acknowledges understanding. I have discussed with her that we will go ahead and give her a tentative refill date since her pump is scheduled to be refilled on or before January 26. We will follow-up with [facility] and work with them to make sure that she is filled by one of their nurses or our staff here in clinic. We will see the patient back in the clinic at the next intrathecal refill. Patient has been instructed to contact the clinic with any concerns before the next appointment. Dr. Velasquez has reviewed this note and agrees with this plan of care. This note was dictated using voice recognition software and make contain errors or omissions. -- It Is medically necessary for this patient to continue to have their intrathecal pump refilled at regular intervals. This patient had an intrathecal pain pump implanted after meeting criteria of chronic intractable pain for greater than 3 months and failing conservative treatments. Patient has committed and been compliant to the treatment plan and all planned follow up care. Since implantation of the intrathecal pain pump, the patient has had decreased pain and been more functional. Oral medications have been reduced including intake of oral opioids. Patient continues to do well with intrathecal therapy with decrease in pain symptoms and increase in functional status. Stopping intrathecal medications can lead to life threatening withdrawal, seizures, cardiac arrest, severe pain, and possible . Pumps that are not refilled at regular intervals can be damages and cause and need for replacement. We continually titrate dose and concentration to optimize pain relief and function. We are limited in concentration for certain drugs to safely deliver medications through the pump and stay within the recommendations from the Polyanalgesic Consensus Committee Guidelines. Depending on dose and concentration these pumps may need to be refilled sooner than 3 months as we titrate.
[2023-11-30 09:55] VITALS: BP 107/41; PULSE 87; RESP 18; O2SAT 93; BMI 28.5
== END 2023-11-30 23:59 | disposition home or self-care (01) ==
PROVIDERS: PCP Internal Medicine Adolescent Medicine; Visit Provider Nurse Practitioner Family
DX: M51.36 Other intervertebral disc degeneration, lumbar region (principal)
CPT/HCPCS: 62368; 99212; 99213; G0463

== ENCOUNTER 2024-01-31 08:10 | Day surgery (SDC) | payer MEDICARE, SELFPAY ==
[2024-01-31 08:48] VITALS: BP 158/50; PULSE 98; RESP 16; O2SAT 90; BMI 26.5
[2024-01-31 09:01] VITALS: BP 163/52; PULSE 99; RESP 18; O2SAT 91
[2024-01-31 09:13] VITALS: BP 163/52; PULSE 99; RESP 18; O2SAT 91
[2024-01-31 09:19] VITALS: BP 170/52; PULSE 95; RESP 16; O2SAT 96
--- NOTE | 2024-01-31 09:23 | EXP.PAIN.PRO ---
Procedure Date: 01/31/24 Time: 09:00 Anesthesiologist:: Rd Francis CRNA Complications:: None Pre-procedure Diagnosis:: Degenerative disc lumbar spine multilevels. Lumbar radiculopathy. Lumbar postlaminectomy syndrome Post-procedure Diagnosis:: Same Indications for Procedure:: Patient is a very pleasant 64-year-old female comes our clinic today for intrathecal pain pump interrogation refill and reprogram. She is currently being managed with morphine sulfate 5 mg/mL at 0.8400 mg/day. She is reporting some increased pain in the low back area. She is requesting increase. I think this is reasonable. I will increase her by 5%. Her new rate will be 0.8800 mg/day. She reports low lumbar back pain. She rates her pain 8/10 today. Patient is awake alert [place] x 3. In no acute distress. Flexion-extension lumbar spine somewhat guarded secondary to pain. Deep tendon reflexes upper lower extremities normal. Motor strength upper lower extremities normal. There are no gross sensory deficit. Gait is normal. Procedure Details:: Details of the procedure explained to the patient. The patient taken procedure and placed in sitting position. The area of the pump was cleansed using chlorhexidine as a cleansing solution. The pump was interrogated. The pump was accessed with ease using a 22-gauge inch and half needle. 4.2 mL of solution was withdrawn discarded appropriate. The pump was then filled with 20 cc of solution containing morphine sulfate 5 mg/mL. The pump rate will increase to 0.8800 mg/day. Patient tolerated procedure without difficulty. There are no complications. Plan and Disposition:: Patient was discharged without incident.
== END 2024-01-31 09:19 | disposition home or self-care (01) ==
PROVIDERS: PCP Nurse Practitioner Family; Visit Provider Nurse Anesthetist, Certified Registered
DX: M51.16 Intervertebral disc disorders with radiculopathy, lumbar region (principal); M96.1 Postlaminectomy syndrome, not elsewhere classified
CPT/HCPCS: 62370

== ENCOUNTER 2024-04-06 09:44 | Day surgery (SDC) | payer MEDICARE, SELFPAY ==
--- NOTE | 2024-04-06 10:00 | EXP.PAIN.PRO ---
Procedure Date: 04/06/24 Time: 11:13 Anesthesiologist:: Blanca Blood APRN Complications:: None Pre-procedure Diagnosis:: Degenerative disc disease of lumbar spine with lumbar radiculopathy symptoms Post-procedure Diagnosis:: Same Indications for Procedure:: Patient is a pleasant 64-year-old female who presents today for intrathecal refill and reprogram. Today she rates her pain a 5 out of 10. She denies any new trauma or injury. Patient is currently managed with morphine 5 mg/mL with a daily dose of 0.8 mg/day. She denies any side effects from this medication.She is prescribed gabapentin from her primary care her Cory has been reviewed and is appropriate. Physical Exam: General: Alert and oriented x3, no acute distress, pleasant and cooperative Lungs: Respirations even and unlabored, symmetrical chest expansion Eyes: PERRL Musculoskeletal: Flexion and extension of lumbar [spine] somewhat guarded secondary to pain, [antalgic gait noted] Neurological: Speech clear, no gross sensory deficit Procedure Details:: Informed consent was obtained and the risk and benefits of the procedure were explained to the patient. The patient had noninvasive monitoring placed including noninvasive blood pressure cuff and pulse oximeter. Patient's pump was interrogated. The area over the pump was cleansed with chlorhexidine as a cleansing solution. In sterile fashion the pump was accessed with a 22-gauge needle. Approximately 6 mls of the pump solution was removed and discarded appropriately. The pump was then refilled with 20 mL's of morphine 5 mg/mL. The needle was withdrawn and a bandage was placed over the puncture site. The infusion rate was reprogrammed and morphine 0.92 mg/day. The patient tolerated well with no complication. Plan and Disposition:: Patient tolerated her intrathecal refill and reprogram with no complications and was discharged neurologically intact. I will order the patient a compounded cream. Patient will return to clinic on or before her next intrathecal refill date of June 11, 2024. We will see the patient back in the clinic at the next intrathecal refill. Patient has been instructed to contact the clinic with any concerns before the next appointment. Dr. Velasquez has reviewed this note and agrees with this plan of care. This note was dictated using voice recognition software and make contain errors or omissions. -- It Is medically necessary for this patient to continue to have their intrathecal pump refilled at regular intervals. This patient had an intrathecal pain pump implanted after meeting criteria of chronic intractable pain for greater than 3 months and failing conservative treatments. Patient has committed and been compliant to the treatment plan and all planned follow up care. Since implantation of the intrathecal pain pump, the patient has had decreased pain and been more functional. Oral medications have been reduced including intake of oral opioids. Patient continues to do well with intrathecal therapy with decrease in pain symptoms and increase in functional status. Stopping intrathecal medications can lead to life threatening withdrawal, seizures, cardiac arrest, severe pain, and possible . Pumps that are not refilled at regular intervals can be damages and cause and need for replacement. We continually titrate dose and concentration to optimize pain relief and function. We are limited in concentration for certain drugs to safely deliver medications through the pump and stay within the recommendations from the Polyanalgesic Consensus Committee Guidelines. Depending on dose and concentration these pumps may need to be refilled sooner than 3 months as we titrate. A UDS is needed to verify patient's compliance with our office pain contract. This is ordered based off specific treatments related to chronic pain with the potential to abuse certain medications.
[2024-04-06 10:05] VITALS: BP 173/55; PULSE 106; RESP 16; TEMP 36.7; O2SAT 95; BMI 26.2
[2024-04-06 11:07] VITALS: BP 149/61; PULSE 90; RESP 16; O2SAT 94
[2024-04-06 11:10] VITALS: BP 149/61; PULSE 85; RESP 16; O2SAT 96
[2024-04-06 11:23] VITALS: BP 148/62; PULSE 87; RESP 16; O2SAT 93
== END 2024-04-06 11:23 | disposition home or self-care (01) ==
PROVIDERS: PCP Nurse Practitioner Family; Visit Provider Nurse Practitioner Family
DX: M51.16 Intervertebral disc disorders with radiculopathy, lumbar region (principal)
CPT/HCPCS: 62370

== ENCOUNTER 2024-06-11 08:10 | Day surgery (SDC) | payer OTHER, SELFPAY ==
[2024-06-11 08:39] VITALS: BP 178/70; PULSE 97; RESP 16; TEMP 36.6; O2SAT 94; BMI 26.5
[2024-06-11 08:40] VITALS: BP 207/73; PULSE 95; RESP 18; O2SAT 93
--- NOTE | 2024-06-11 08:47 | P.PCN_ITS ---
Procedure Date: 06/11/24 Time: 08:47 Anesthesiologist:: Blanca Blood APRN Complications:: None Pre-procedure Diagnosis:: Degenerative disc disease of lumbar spine with lumbar radiculopathy symptoms Post-procedure Diagnosis:: Same Indications for Procedure:: Patient is a pleasant 64-year-old female who presents today for intrathecal refill and reprogram. Today she rates her pain a 8 out of 10. Patient does state she had a recent fall where she lost her balance going to reach down to p et her dog. Patient denies any significant injury from this fall and states that she did try and lean to her left hip to avoid her pump. Patient is currently managed with morphine 5 mg/mL with a daily dose of 0.92 mg/day. She denies any side effects from this medication. She is on gabapentin from her PCP. Her Cory has been reviewed and is appropriate. Physical Exam: General: Alert and oriented x3, no acute distress, pleasant and cooperative Lungs: Respirations even and unlabored, symmetrical chest expansion Eyes: PERRL Musculoskeletal: Flexion and extension of lumbar [spine] somewhat guarded secondary to pain, [antalgic gait noted] Neurological: Speech clear, no gross sensory deficit Procedure Details:: Informed consent was obtained and the risk and benefits of the procedure were explained to the patient. The patient had noninvasive monitoring placed including noninvasive blood pressure cuff and pulse oximeter. Patient's pump was interrogated. The area over the pump was cleansed with chlorhexidine as a cleansing solution. In sterile fashion the pump was accessed with a 22-gauge needle. Approximately 6 mls of the pump solution was removed and discarded appropriately. The pump was then refilled with 20 mL's of morphine 5 mg/mL. The needle was withdrawn and a bandage was placed over the puncture site. The infusion rate was reprogrammed and continued at its current rate. The patient tolerated well with no complication. Plan and Disposition:: Patient tolerated the procedure well with no complications and was discharged neurologically intact. Patient will return to clinic on or before their next intrathecal refill date. We will see the patient back in the clinic at the next intrathecal refill. Patient has been instructed to contact the clinic with any concerns before the next appointment. Dr. Velasquez has reviewed this note and agrees with this plan of care. This note was dictated using voice recognition software and make contain errors or omissions. -- It Is medically necessary for this patient to continue to have their intrathecal pump refilled at regular intervals. This patient had an intrathecal pain pump implanted after meeting criteria of chronic intractable pain for greater than 3 months and failing conservative treatments. Patient has committed and been compliant to the treatment plan and all planned follow up care. Since implantation of the intrathecal pain pump, the patient has had decreased pain and been more functional. Oral medications have been reduced including intake of oral opioids. Patient continues to do well with intrathecal therapy with decrease in pain symptoms and increase in functional status. Stopping intrathecal medications can lead to life threatening withdrawal, seizures, cardiac arrest, severe pain, and possible . Pumps that are not refilled at regular intervals can be damages and cause and need for replacement. We continually titrate dose and concentration to optimize pain relief and function. We are limited in concentration for certain drugs to safely deliver medications through the pump and stay within the recommendations from the Polyanalgesic Consensus Committee Guidelines. Depending on dose and concentration these pumps may need to be refilled sooner than 3 months as we titrate. A UDS is needed to verify patient's compliance with our office pain contract. This is ordered based off specific treatments related to chronic pain with the potential to abuse certain medications.
[2024-06-11 08:50] VITALS: BP 207/73; PULSE 95; RESP 18; O2SAT 93
[2024-06-11 09:05] VITALS: BP 182/75; PULSE 94; RESP 16; O2SAT 90
--- NOTE | 2024-06-11 09:05 | PC.NURSE ---
PT REPORTS HAS NOT TAKEN HER BP MEDICATION YET TODAY, PT DENIES H/A, DIZZINESS, VISION CHANGES. PROVIDER AWARE OF BP. STATED TO PT TO MAKE SURE TO TAKE HER BP MEDICATION WHEN SHE GETS HOME, VERBALIZES SHE WILL.
== END 2024-06-11 09:05 | disposition home or self-care (01) ==
PROVIDERS: PCP Nurse Practitioner Family; Visit Provider Nurse Practitioner Family
DX: M51.16 Intervertebral disc disorders with radiculopathy, lumbar region (principal)
CPT/HCPCS: 62370

== ENCOUNTER 2024-06-15 11:04 | Outpatient (CLI) | payer MEDICARE, SELFPAY ==
--- NOTE | 2024-06-15 11:09 | CA_ITS ---
FINAL REPORT CLINICAL HISTORY: HUMBERTO, Hx-right carotid endartectomy, Left carotid bruit, Ex-smoker, Dyslipidemia COMPARISON: None FINDINGS: RIGHT CAROTID: CCA PSV -169 cm/sec ICA PSV -182 cm/sec ICA/CCA PSV ratio -2.2. Comments: Moderate plaque disease is noted. LEFTCAROTID: CCA PSV -389. cm/sec ICA PSV -219. cm/sec ICA/CCA PSV ratio -3. Comments: Mild plaque disease is noted. Antegrade flow is seen within the vertebral arteries. IMPRESSION: Right carotid less than 50% stenosis, with moderate plaque in the distal common carotid artery. Greater than 70% stenosis in the left carotid artery, recommend CTA or MRA to confirm. Reviewed, Interpreted and Dictated by Sola Owen MD Transcribed by Emily Anand Authenticated and [facility]
[2024-06-15 12:01] LABS: Basophils % 0.5 % (0.1-2.0); Eosinophils # 0.1 K/mm3 (0.0-0.4); Eosinophils % 1.9 % (0.1-12.0); Hematocrit 31.9 % (37.0-47.0); Hemoglobin 10.6 g/dL (12.2-16.2); Lymphocytes # 0.9 K/mm3 (0.7-4.5); Mean Corpuscular HGB Conc 33.2 g/dL (31.8-35.4); Mean Corpuscular Hemoglobin 29.5 pg (27.0-31.2); Mean Corpuscular Volume 88.9 fl (81-99); Mean Platelet Volume 8.7 fl (7.4-10.4); Monocytes # 0.4 K/mm3 (0.1-1.0); Monocytes % 7.3 % (1.7-9.3); Neutrophils # 4.2 K/mm3 (1.8-7.8); Platelet Count 209 K/mm3 (142-424); Red Blood Count 3.59 M/mm3 (4.20-5.40); Red Cell Distribution Width 12.6 % (11.5-17.5); White Blood Count 5.7 K/mm3 (4.8-10.8)
[2024-06-15 12:43] LABS: Alanine Aminotransferase 23 U/L (12-78); Albumin Level 4.6 g/dl (3.5-5.0); Alkaline Phosphatase 71 U/L (38-126); Anion Gap 13.4 mEq/L (5-15); Aspartate Amino Transferase 35 U/L (14-36); Bilirubin,Direct 0.3 mg/dl (0.0-0.4); Bilirubin,Indirect 0.1 mg/dL (0.0-0.9); Bilirubin,Total 0.4 mg/dl (0.2-1.3); Bilirubin,Unconjugated 0.1 mg/dL (0.0-1.1); Blood Urea Nitrogen 29 mg/dl (7-17); Calcium 7.9 mg/dl (8.4-10.2); Carbon Dioxide 31 mmol/L (22.0-30.0); Chloride 89 mmol/L (98-107); Chol/HDL Ratio 3.4 (1-3.5); Cholesterol 161 mg/dl (140-200); Estimated Glomerular Filt Rate 38 ml/min (>60); GFR (African American) 46 ML/MIN (>60); Glucose 87 mg/dl (74-100); HDL Cholesterol 47 mg/dl (40-60); Potassium 4.4 mmoL/L (3.5-5.1); Sodium 129 mmol/L (136-145); Total Protein,Serum 6.9 g/dl (6.3-8.2); Triglycerides 244 mg/dl (30-150); VLDL Cholesterol 49 mg/dL (0-40)
[2024-06-15 12:54] LABS: Direct LDL Cholesterol 65.01 mg/dL (100-129)
[2024-06-15 12:58] LABS: Free T4 (Free Thyroxine) 1.26 ng/dl (0.78-2.19)
[2024-06-15 13:10] LABS: Magnesium 0.8 mg/dl (1.6-2.3)
[2024-06-15 13:12] LABS: Thyroid Stimulating Hormone 1.95 uIU/mL (0.465-4.68)
== END 2024-06-15 23:59 | disposition home or self-care (01) ==
LOC: RT 11:05
PROVIDERS: PCP Nurse Practitioner Family; Visit Provider Nurse Practitioner
DX: I65.23 Occlusion and stenosis of bilateral carotid arteries (principal); R22.2 Localized swelling, mass and lump, trunk; I10 Essential (primary) hypertension; I25.10 Atherosclerotic heart disease of native coronary artery without angina pectoris; I73.9 Peripheral vascular disease, unspecified; I70.1 Atherosclerosis of renal artery; E11.9 Type 2 diabetes mellitus without complications; E78.2 Mixed hyperlipidemia
CPT/HCPCS: 36415; 80048; 80061; 80076; 83735; 84439; 84443; 85025; 93880

== ENCOUNTER 2024-08-24 11:08 | Day surgery (SDC) | payer MEDICARE, SELFPAY ==
[2024-08-24 11:23] VITALS: BP 185/56; PULSE 77; RESP 16; TEMP 36.7; O2SAT 97; BMI 26.2
--- NOTE | 2024-08-24 11:36 | P.HP_ITS ---
History of Present Illness *Admission Date: 08/24/24 *Reason for visit:: Intrathecal refill; DDD *History of present illness: DDD PFSH [facility] Disclaimer: The information contained in this section may have been updated after the patient was seen, as this information can be updated by other users. Medical History Hypomagnesemia Subcutaneous nodule of back Angina pectoris Abnormal stress test Dyspnea Dizziness Left carotid bruit Palpitations Diastolic dysfunction Aortic insufficiency Abdominal pain Celiac artery stenosis Surgical History History of colonoscopy Family History Other Family history of cancer Family history of diabetes mellitus type II Social History Smoking Status: Former smoker tobacco type: cigarettes packs per day: 1 second hand exposure: No alcohol intake: never substance use type: denies use current occupational status: disabled Travel in the last 8 weeks?: None household members: spouse and family housing: house current occupational exposures/hazards: No caffeine: Yes Have you lived/traveled outside [place] in past 30 days?: No Contact w/someone who lives/traveled outside [place] past 30 days?: No Exposure to someone with infectious disease in past 14 days?: No Do you have a fever (greater than 100.4 F or 38 C)?: No Have you tested positive for COVID-19?: No Exposed to someone with COVID-19 in past 14 days?: No Do you have a sore throat?: No Do you have a cough?: No Do you have any weakness?: No Do you have any diarrhea?: No Are you experiencing any unusual bleeding?: No Do you have any muscle aches/pain?: No Do you have any abdominal pain?: No Are you experiencing loss of taste or smell?: No Other Medical History Have you received the Flu Vaccine for this season: No Have you received the Pneumonia Vaccine: No Review of Systems Review of Systems Review of systems:: pertinent systems reviewed and negative unless documented below Review of systems (narrative): Review of Systems: General: No recent weight changes, no fever, no sleep disturbances Respiratory: No cough, no shortness of air, no recurring pulmonary infections Cardiovascular/peripheral vascular: No chest pain, no palpitations, no edema, no shortness of breath Gastrointestinal: No new onset incontinence, normal bowel movements reported Genitourinary: No new onset incontinence Musculoskeletal: Chronic back pain Psychiatric: [Normal mood/affect] Neurological: [Denies weakness in extremities], [denies balance issues] Meds Home Medications and Allergies Home Medications ?Medication ?Instructions ?Recorded ?Confirmed ?Type diphenhydramine HCl 25 mg capsule 25 mg PO Q4-6H allergies 06/21/17 08/24/24 History (Benadryl) metformin 1,000 mg tablet 1,000 mg PO BID Diabetes 06/21/17 08/24/24 History ropinirole 1 mg tablet (Requip) 1 mg PO BID RLS 06/21/17 08/24/24 History trazodone 100 mg tablet 100 mg PO QHS sleep aid 06/21/17 08/24/24 History aspirin 81 mg tablet,delayed 81 mg PO DAILY heart health 11/05/20 08/24/24 History release omeprazole 40 mg capsule,delayed 40 mg PO DAILY GERD 11/05/20 08/24/24 History release atorvastatin 20 mg tablet See Rx Instructions .Route 03/16/21 08/24/24 Rx .COMPLEX #90 tabs albuterol sulfate 90 mcg/actuation 2 puff inhalation ONCE PRN Asthma 07/02/21 08/24/24 History aerosol inhaler cyclobenzaprine 5 mg tablet 5 mg PO DAILY 07/08/22 08/24/24 History fluticasone fur. 100 mcg-umeclid 1 inh inhalation DAILY 07/08/22 08/24/24 History 62.5 mcg-vilant 25 mcg inhalat.powder (Trelegy Ellipta) gabapentin 600 mg tablet 600 mg PO BID 07/08/22 08/24/24 History clopidogrel 75 mg tablet See Rx Instructions .Route 11/24/22 08/24/24 Rx .COMPLEX #90 tabs furosemide 40 mg tablet (Lasix) 40 mg PO DAILY #90 tabs 04/28/23 08/24/24 Rx carvedilol 12.5 mg tablet 12.5 mg PO BID 06/07/24 08/24/24 History dulaglutide 1.5 mg/0.5 mL 1.5 mg SQ QWEEK 06/07/24 08/24/24 History subcutaneous pen injector (Trulicity) duloxetine 60 mg capsule,delayed 60 mg PO DAILY 06/07/24 08/24/24 History release magnesium oxide 400 mg PO BID #60 tabs 06/15/24 08/24/24 Rx lubiprostone 24 mcg capsule 24 mcg PO . 07/09/24 08/24/24 History losartan 100 mg tablet 100 mg PO DAILY #30 tabs 08/09/24 08/24/24 Rx New Prescriptions to Start Prescriptions: Allergies Allergy/AdvReac Type Severity Reaction Status Date / Time menthol (From LidoPatch) Allergy Unknown SKIN RASH Verified 08/09/24 13:03 lidocaine AdvReac Unknown SKIN RASH Verified 08/09/24 13:03 Exam Data for Last 24 hours Vital signs and Labs for Last 24 Hours: Temp Pulse Resp BP Pulse Ox O2 Del Method 98.1 F 77 16 185/56 H 97 Room Air 08/24/24 11:23 08/24/24 11:23 08/24/24 11:23 08/24/24 11:23 08/24/24 11:23 08/24/24 11:23 I & O for Last 24 hours: Intake & Output 08/21/24 08/22/24 08/23/24 08/24/24 23:59 23:59 23:59 23:59 Weight 148 lb Constitutional Constitutional: no acute distress *Routine HEENT Exam Head: Present normocephalic and atraumatic Eye: Present PERRL ENT: Present mucous membranes moist *Routine Neck Exam Neck: Present supple *Routine Respiratory Exam Respiratory: Present CTA bilaterally *Routine Cardiovascular Exam Cardiovascular: Present RRR *Routine Abdominal Exam Abdominal: Present soft *Routine Rectal Exam Rectal:: deferred *Routine Genitalia Exam Genitalia:: normal female Routine Back/Spine/Pelvis Exam Back/Spine: Present pain with flexion *Routine Skin Exam Skin: Present intact *Routine Neurological Exam Neurological: Present alert and oriented X3 Routine Psychiatric Exam Psychiatric: Present normal affect and normal thought process Assessment and Plan *Assessment and plan (1) Degenerative joint disease (DJD) of lumbar spine: Status: Chronic Category: Medical Code(s): M47.816 - Spondylosis without myelopathy or radiculopathy, lumbar region (2) Lumbar radiculopathy: Status: Chronic Category: Medical Code(s): M54.16 - Radiculopathy, lumbar region Plan Patient has been instructed to contact the clinic with any concerns before the next appointment. Dr. Velasquez has reviewed this note and agrees with this plan of care. This note was dictated using voice recognition software and make contain errors or omissions. All injections are used with Lidocaine, Bupivacaine and dexamethasone. Occasionally urine drug screen is needed to verify patient's compliance with our office pain contract. This is ordered based off specific treatments related to chronic pain with the potential to abuse certain medications.
--- NOTE | 2024-08-24 11:37 | P.PCN_ITS ---
Procedure Date: 08/24/24 Time: 11:46 Anesthesiologist:: Blanca Blood APRN Complications:: None Pre-procedure Diagnosis:: Degenerative disc disease of lumbar spine with lumbar radiculopathy symptoms Post-procedure Diagnosis:: Same Indications for Procedure:: Patient is a pleasant 64-year-old female who presents today for intrathecal refill and reprogram. Today she rates her pain a 8 out of 10. She does state from our last visit she had an additional fall. Patient states that it is pr imarily her left leg that just randomly gives out causing her to stumble. Patient is currently managed with morphine 5 mg/mL with a daily dose of 0.92 mg/day. She denies any side effects. Patient does state that all over she has pain even tenderness around her pump. She is prescribed gabapentin from her primary care. Her Cory has been reviewed and it is appropriate. Physical Exam: General: Alert and oriented x3, no acute distress, pleasant and cooperative Lungs: Respirations even and unlabored, symmetrical chest expansion Eyes: PERRL Musculoskeletal: Flexion and extension of lumbar [spine] somewhat guarded secondary to pain, [antalgic gait noted] Neurological: Speech clear, no gross sensory deficit Procedure Details:: Informed consent was obtained and the risk and benefits of the procedure were explained to the patient. The patient had noninvasive monitoring placed including noninvasive blood pressure cuff and pulse oximeter. Patient's pump was interrogated. The area over the pump was cleansed with chlorhexidine as a cleansing solution. In sterile fashion the pump was accessed with a 22-gauge needle. Approximately 4.6 mls of the pump solution was removed and discarded appropriately. The pump was then refilled with 20 mL's of morphine 5 mg/mL. The needle was withdrawn and a bandage was placed over the puncture site. The infusion rate was reprogrammed and increased 10%. The patient tolerated well with no complication. Plan and Disposition:: Patient tolerated the procedure well with no complications and was discharged neurologically intact. I will also order the patient a compounded cream. Patient was given a handout on the medication and counseled that if she does not hear from them within about 2 business days to call one of their numbers and that they will text me if they need me regarding this order. Patient agrees with this plan of care. patient will return to clinic on or before their next intrathecal refill date. We will see the patient back in the clinic at the next intrathecal refill. Patient has been instructed to contact the clinic with any concerns before the next appointment. Dr. Velasquez has reviewed this note and agrees with this plan of care. This note was dictated using voice recognition software and make contain errors or omissions. -- It Is medically necessary for this patient to continue to have their intrathecal pump refilled at regular intervals. This patient had an intrathecal pain pump implanted after meeting criteria of chronic intractable pain for greater than 3 months and failing conservative treatments. Patient has committed and been compliant to the treatment plan and all planned follow up care. Since impl antation of the intrathecal pain pump, the patient has had decreased pain and been more functional. Oral medications have been reduced including intake of oral opioids. Patient continues to do well with intrathecal therapy with decrease in pain symptoms and increase in functional status. Stopping intrathecal medications can lead to life threatening withdrawal, seizures, cardiac arrest, severe pain, and possible . Pumps that are not refilled at regular intervals can be damages and cause and need for replacement. We continually titrate dose and concentration to optimize pain relief and function. We are limited in concentration for certain drugs to safely deliver medications through the pump and stay within the recommendations from the Pol[employer] Consensus Committee Guidelines. Depending on dose and concentration these pumps may need to be refilled sooner than 3 months as we titrate. A UDS is needed to verify patient's compliance with our office pain contract. This is ordered based off specific treatments related to chronic pain with the potential to abuse certain medications.
[2024-08-24 11:50] VITALS: BP 143/58; PULSE 73; RESP 16; O2SAT 97
[2024-08-24 12:27] VITALS: BP 177/54; PULSE 79; RESP 18; O2SAT 95
== END 2024-08-24 11:50 | disposition home or self-care (01) ==
PROVIDERS: PCP Nurse Practitioner Family; Visit Provider Nurse Practitioner Family
DX: M51.16 Intervertebral disc disorders with radiculopathy, lumbar region (principal)
CPT/HCPCS: 62370

== ENCOUNTER 2024-09-17 16:18 | Observation (INO) | payer MEDICARE, SELFPAY ==
[2024-09-17] VITALS (9 sets, daily range): BP systolic 132–178; BP diastolic 51–67; PULSE 64–77; RESP 16–19; TEMP 36.4–36.7; O2SAT 92–97; BMI 24.4; BMI 26.2
--- NOTE | 2024-09-17 16:31 | ECG_ITS ---
APPROVED REPORT Exam: Resting ECG HR:77 bpm ECG Measurements Heart Rate 77 AXES TX 151 P 64 QRSd 88 QRS -1 QT 364 T 45 QTc 396 Conclusion SINUS RHYTHM NORMAL ECG Electronically signed by : MAURICE NELSON, 09/17/2024 23:32:28
--- NOTE | 2024-09-17 16:35 | HMH.EDGENADL ---
Discharge Plan Disposition Patient Disposition: Admitted Condition: Fair Clinical Impressions Clinical Impression: Acute kidney injury Discharge ED Provider: Kemal Umnaa General Adult HPI General Chief complaint: Weakness Stated complaint: weakness, tremors sent talib Cutler Time Seen by Provider: 09/17/24 16:35 History of Present Illness HPI narrative: The patient presents to the Emergency Department following two episodes of loss of consciousness. The first episode occurred on Tuesday night, during which the patient fell and has no recollection of the event except for perceiving that the furniture was moving. The patient reports a second episode on Tuesday, described as a spell where her eyes reportedly turned. The initial fall occurred around 3:37 AM on Tuesday morning when the patient was going to the bathroom. She has no memory of hitting her head or falling on any particular part of her body. However, she has significant bruising on her abdomen, which she believes may have resulted from hitting a bench at the foot of her bed during the fall. The patient denies any prodromal symptoms or feeling sick prior to this episode. The second episode occurred around 4:00 PM on Tuesday while the patient was sitting on the couch. This episode was characterized by the patient's eyes turning and lasted for a few seconds. The patient does not recall feeling anything before this episode and denies any confusion afterwards, stating she snapped back out of it quickly. Prior to these episodes, the patient reports experiencing diarrhea without blood. She denies any current diarrhea. The patient also mentions a decreased appetite. She denies any chest pain, numbness, or tingling. The patient is able to bear weight on her legs and move about, although she reports pain in her abdomen where the bruising is located. The patient denies any similar episodes of lightheadedness or loss of consciousness in the past. She also reports intermittent vomiting, occurring approximately once every couple of weeks, with no clear pattern or trigger. The patient has a history of heart valve issues and recurrent episodes of vomiting, occurring at least once every couple of weeks. Please note that above description of symptoms, in this electronic medical record under categorization of recalled from ER triage doctor by RN are reflective of an initial nursing assessment, however, is not reflective of my full history and physical exam that was personally taken and clarified. Consequentially, this preceding description of symptoms, which may include the patient's categorized chief complaint in the EMR, do not reflect my personal clinical impression, and the ultimate description of history of present illness and patient stated complaints should be deferred to this section of the note. Unless stated otherwise or congruent with this section of the note, additional signs, symptoms, or incongruence should be interpreted as inaccurate with my clinical impression. Related Data Home Medications ?Medication ?Instructions ?Recorded ?Confirmed aspirin 81 mg tablet,delayed 81 mg PO DAILY 11/05/20 09/17/24 release omeprazole 40 mg capsule,delayed 40 mg PO DAILY 11/05/20 09/17/24 release albuterol sulfate 90 mcg/actuation 2 puff inhalation Q6HP PRN 07/02/21 09/18/24 aerosol inhaler Shortness Of Breath Or Wheezing fluticasone fur. 100 mcg-umeclid 1 inh inhalation DAILY 07/08/22 09/17/24 62.5 mcg-vilant 25 mcg inhalat.powder (Trelegy Ellipta) gabapentin 600 mg tablet 600 mg PO TID 07/08/22 09/18/24 carvedilol 12.5 mg tablet 12.5 mg PO BID 06/07/24 09/17/24 dulaglutide 1.5 mg/0.5 mL 1.5 mg SQ WEEKLY 06/07/24 09/18/24 subcutaneous pen injector (Trulicity) duloxetine 60 mg capsule,delayed 60 mg PO DAILY 06/07/24 09/17/24 release lubiprostone 24 mcg capsule 24 mcg PO BID 07/09/24 09/18/24 Held on 09/18/24. Instructions: Resume on 10/02/24. This medication can cause diarrhea. Please hold this medication if you are having diarrhea and follow-up with your prescriber. atorvastatin 20 mg tablet 20 mg PO DAILY 09/18/24 09/18/24 clopidogrel 75 mg tablet 75 mg PO DAILY 09/18/24 09/18/24 magnesium oxide 400 mg PO DAILY 09/18/24 09/18/24 metformin 1,000 mg tablet 1,000 mg PO BID 09/18/24 09/18/24 Held on 09/18/24. Instructions: Resume on 10/02/24. Hold this medication if you are having diarrhea. methylprednisolone 4 mg tablets in 4 mg PO DIRECTED 09/18/24 09/18/24 a dose pack ropinirole 1 mg tablet 0.5 mg PO DAILY 09/18/24 09/18/24 ropinirole 1 mg tablet 1 mg PO HS 09/18/24 09/18/24 Previous Rx's ?Medication ?Instructions ?Recorded losartan 100 mg tablet 100 mg PO DAILY #30 tabs 08/09/24 Held on 09/18/24. Instructions: Resume on 09/25/24. Hold this medication until you follow-up with your PCP as your kidney function slowly improves. diphenhydramine HCl 25 mg capsule 25 mg PO DAILY 30 days #0 caps 09/18/24 (Benadryl) Allergies Allergy/AdvReac Type Severity Reaction Status Date / Time menthol (From LidoPatch) Allergy Unknown SKIN RASH Verified 08/09/24 13:03 lidocaine AdvReac Unknown SKIN RASH Verified 08/09/24 13:03 PFSH [facility] Disclaimer: The information contained in this section may have been updated after the patient was seen, as this information can be updated by other users. Medical History (Updated 09/18/24 @ 14:24 by Jess Krishna APRN) Acute respiratory failure with hypoxia Pulmonary emphysema Viral syndrome Right carotid bruit Fatigue Exposure to COVID-19 virus Chest pain Hypomagnesemia Subcutaneous nodule of back Angina pectoris Abnormal stress test Dyspnea Dizziness Left carotid bruit Palpitations Diastolic dysfunction Aortic insufficiency Abdominal pain Celiac artery stenosis Surgical History (Updated 09/18/24 @ 00:40 by Jonathon Mejia APRN) History of right-sided carotid endarterectomy H/O carotid endarterectomy H/O: hysterectomy Hx of cholecystectomy History of colonoscopy Family History Other Family history of cancer Family history of diabetes mellitus type II Social History (Updated 09/17/24 @ 21:16 by Rita Carrera RN) Smoking Status: Former smoker tobacco type: cigarettes packs per day: 1 second hand exposure: No alcohol intake: never substance use type: denies use current occupational status: disabled Travel in the last 8 weeks?: None household members: spouse and family housing: house current occupational exposures/hazards: No caffeine: Yes Other Medical History Have you received the Flu Vaccine for this season: No Have you received the Pneumonia Vaccine: No ROS Obtained: Yes other As per HPI Physical Exam General General appearance: alert and in no apparent distress Head Head exam: atraumatic and normocephalic Eye Eye exam: Present normal appearance Neck Neck exam: Present normal inspection Chest Chest inspection: Present normal inspection and symmetric chest wall rise Respiratory Respiratory exam: Present normal lung sounds bilaterally; Absent respiratory distress Cardiovascular Cardiovascular exam: Present regular rate and normal rhythm Abdominal Exam Abdominal exam: Present soft Neurological Exam Neurological exam: Present alert and oriented X3 Psychiatric Psychiatric exam: Present normal affect and normal mood Skin Skin exam: Present warm and dry Medical Decision Making Medical Records Medical records reviewed: Yes I reviewed the patient's medical records. Screening: Per USPSTF and CDC recommendations, given the prevalence of disease in our region, it is our hospital?s policy to screen for HIV and viral Hepatitis for all patients aged 18 and over and those with ongoing risk factors. Cory Inquiry Pt receiving controlled substance: No Vital Signs: 09/17/24 16:36 09/17/24 17:00 09/17/24 17:08 Temperature 98.0 F Temperature Source Oral Pulse Rate 77 77 Pulse Rate [Left Radial] 73 Respiratory Rate 19 16 Blood Pressure 132/54 L 132/54 L Blood Pressure [Right Arm] 162/65 H Blood Pressure Mean [Right Arm] 97 Blood Pressure Position 02 Sat by Pulse Oximetry 95 96 96 Oxygen Delivery Method Room Air 09/17/24 17:33 09/17/24 18:30 09/17/24 20:04 Temperature Temperature Source Pulse Rate 71 Pulse Rate [Left Radial] Respiratory Rate Blood Pressure 148/51 H 161/66 H Blood Pressure [Right Arm] Blood Pressure Mean [Right Arm] Blood Pressure Position 02 Sat by Pulse Oximetry 96 95 97 Oxygen Delivery Method Room Air Room Air Room Air 09/17/24 20:19 Temperature 98 F Temperature Source Pulse Rate 64 Pulse Rate [Left Radial] Respiratory Rate 18 Blood Pressure 178/67 H Blood Pressure [Right Arm] Blood Pressure Mean [Right Arm] Blood Pressure Position Sitting 02 Sat by Pulse Oximetry Oxygen Delivery Method Room Air Lab Data Lab Results 09/17/24 16:56: WBC 9.5, RBC 3.10 L, Hgb 9.2 L, Hct 27.6 L, MCV 89.0, MCH 29.7, MCHC 33.3, RDW 12.9, Plt Count 216, MPV 9.8, Neut % (Auto) 87.0 H, Lymph % (Auto) 5.4 L, [place] % (Auto) 6.4, Eos % (Auto) 0.2, Baso % (Auto) 0.1, Neut # (Auto) 8.3 H, Lymph # (Auto) 0.5 L, [place] # (Auto) 0.6, Eos # (Auto) 0.0, Baso # (Auto) 0.0, Total Counted 100, Neutrophils % (Manual) 93 H, Lymphocytes % (Manual) 6 L, Monocytes % (Manual) 1 L, Platelet Estimate Normal, RBC Morphology Normal, PT 11.1, INR 1.00, Sodium 134 L, Potassium 4.9, Chloride 93 L, Carbon Dioxide 27, Anion Gap 18.9 H, BUN 74 H, Creatinine 3.60 H, Estimated Creat Clear 16, Estimated GFR 13 L*, Est GFR ( Amer) 15 L*, Glucose 115 H, Calcium 9.3, Magnesium 1.4 L, Total Bilirubin 0.4, AST 40 H, ALT 26, Alkaline Phosphatase 60, Total Creatine Kinase 264 H, Troponin I < 0.01, Total Protein 7.5, Albumin 4.5, Globulin 3.0, Albumin/Globulin Ratio 1.5, Lipase 171, Free T4 1.25, HCV Ab NICHOLAS w/Rflx PCR Qn Negative, HIV Ag/Ab Combo Qual Negative 09/17/24 17:32: Urine Color Yellow, Urine Appearance Clear, Urine pH 5.5, Ur Specific [place] 1.010, Urine Protein Negative, Urine Glucose (UA) Negative, Urine Ketones Negative, Urine Blood Negative, Urine Nitrate Negative, Urine Bilirubin Negative, Urine Urobilinogen 0.2, Ur Leukocyte Esterase Negative, Urine RBC 3-5, Urine WBC 5-10, Ur Squamous Epith Cells 5-10, Urine Bacteria 1+ 09/18/24 05:01 09/18/24 05:01 Orders (Tests/Meds): ED MEDICATIONS Discontinued Medications Generic Name Dose Route Start Last Admin Trade Name Freq PRN Reason Stop Dose Admin Acetaminophen 650 mg 09/17/24 20:03 Acetaminophen 325mg Tab PO 10/17/24 20:02 Q4HP PRN Fever or Mild Pain (1-3) Lactated Ringer's 1,000 mls @ 999 mls/hr 09/17/24 17:34 09/17/24 17:47 Lactated Ringer's 1000 Ml Bag IV 09/17/24 18:34 999 mls/hr .Q1H1M ONE Administration Magnesium Sulfate 2 gm in 50 mls @ 50 mls/hr 09/17/24 17:35 09/17/24 17:47 Magnesium Sulfate 2gm/50ml Premix IV 09/17/24 18:34 50 mls/hr ONCE ONE Administration Lactated Ringer's 1,000 mls @ 500 mls/hr 09/18/24 07:46 09/18/24 09:01 Lactated Ringer's 1000 Ml Bag IV 09/18/24 09:45 500 mls/hr .Q2H ONE Administration Loratadine 10 mg 09/18/24 04:15 09/18/24 04:16 Loratadine 10mg Tablet PO 10/18/24 04:14 10 mg DAILY CECY Administration Loratadine 10 mg 09/19/24 09:00 Loratadine 10mg Tablet PO 10/19/24 08:59 DAILY CECY Miscellaneous 1 each 09/17/24 23:55 09/18/24 04:21 Pharmacy Consult Request NOTAPPLIC 09/17/24 23:56 1 each CONSULT PHARMACY ONE Administration Umeclidinium/Vilanterol 1 puff 09/18/24 10:45 09/18/24 11:25 Umeclidinium/Vilanterol 62.5/25mcg Inhaler IH 10/18/24 10:44 1 puff DAILY CECY Administration ORDERS Category Date Time Status CT abdomen pelvis wo con Stat Cat Scan 09/17/24 17:[address] chest wo con Stat Cat Scan 09/17/24 17:[address] head/brain wo con Stat Cat Scan 09/17/24 17:10 Completed Consult to Cardiology [CONS] Routine Cons 09/17/24 20:06 Active Consult to Case Management [CONS] Routine Cons 09/17/24 20:03 Active Consult to Pulmonology [CONS] Routine Cons 09/17/24 20:06 Active CBC w/Auto Diff [Complete Blood Count Auto Diff] Stat Lab 09/17/24 16:56 Completed CK [Creatine Kinase] Stat Lab 09/17/24 16:56 Completed CMP [Comprehensive Metabolic Panel] Stat Lab 09/17/24 16:56 Completed Complete Blood Count Auto Diff AMLAB Lab 09/18/24 05:01 Completed Comprehensive Metabolic Panel AMLAB Lab 09/18/24 05:01 Completed Free T4 (Free Thyroxine) Stat Lab 09/17/24 16:56 Completed HIV Combo Stat Lab 09/17/24 16:56 Completed Hepatitis C Ab Qual. W/ RFX Stat Lab 09/17/24 16:56 Completed Lactic Acid AMLAB Lab 09/18/24 05:01 Completed Lipase Stat Lab 09/17/24 16:56 Completed MAG [Magnesium] Stat Lab 09/17/24 16:56 Completed Magnesium AMLAB Lab 09/18/24 05:01 Completed PT INR [Prothrombin Time INR] Stat Lab 09/17/24 16:56 Completed Troponin I Q3H Lab 09/17/24 16:56 Completed Troponin I Q3H Lab 09/17/24 20:17 Completed Urinalysis and Microscopic Stat Lab 09/17/24 17:32 Completed Medical Decision Narrative: Patient with history and exam per above presenting for evaluation of generalized weakness, nausea vomiting diarrhea Diagnoses considered include infectious diarrhea, medication induced diarrheal illness, hypovolemia, electrolyte abnormality, among others ED workup and treatment included: ED MEDICATIONS Discontinued Medications Generic Name Dose Route Start Last Admin Trade Name Freq PRN Reason Stop Dose Admin Acetaminophen 650 mg 09/17/24 20:03 Acetaminophen 325mg Tab PO 10/17/24 20:02 Q4HP PRN Fever or Mild Pain (1-3) Lactated Ringer's 1,000 mls @ 999 mls/hr 09/17/24 17:34 09/17/24 17:47 Lactated Ringer's 1000 Ml Bag IV 09/17/24 18:34 999 mls/hr .Q1H1M ONE Administration Magnesium Sulfate 2 gm in 50 mls @ 50 mls/hr 09/17/24 17:35 09/17/24 17:47 Magnesium Sulfate 2gm/50ml Premix IV 09/17/24 18:34 50 mls/hr ONCE ONE Administration Lactated Ringer's 1,000 mls @ 500 mls/hr 09/18/24 07:46 09/18/24 09:01 Lactated Ringer's 1000 Ml Bag IV 09/18/24 09:45 500 mls/hr .Q2H ONE Administration Loratadine 10 mg 09/18/24 04:15 09/18/24 04:16 Loratadine 10mg Tablet PO 10/18/24 04:14 10 mg DAILY CECY Administration Loratadine 10 mg 09/19/24 09:00 Loratadine 10mg Tablet PO 10/19/24 08:59 DAILY CECY Miscellaneous 1 each 09/17/24 23:55 09/18/24 04:21 Pharmacy Consult Request NOTAPPLIC 09/17/24 23:56 1 each CONSULT PHARMACY ONE Administration Umeclidinium/Vilanterol 1 puff 09/18/24 10:45 09/18/24 11:25 Umeclidinium/Vilanterol 62.5/25mcg Inhaler IH 10/18/24 10:44 1 puff DAILY CECY Administration ORDERS Category Date Time Status CT abdomen pelvis wo con Stat Cat Scan 09/17/24 17:[address] chest wo con Stat Cat Scan 09/17/24 17:[address] head/brain wo con Stat Cat Scan 09/17/24 17:10 Completed Consult to Cardiology [CONS] Routine Cons 09/17/24 20:06 Active Consult to Case Management [CONS] Routine Cons 09/17/24 20:03 Active Consult to Pulmonology [CONS] Routine Cons 09/17/24 20:06 Active CBC w/Auto Diff [Complete Blood Count Auto Diff] Stat Lab 09/17/24 16:56 Completed CK [Creatine Kinase] Stat Lab 09/17/24 16:56 Completed CMP [Comprehensive Metabolic Panel] Stat Lab 09/17/24 16:56 Completed Complete Blood Count Auto Diff AMLAB Lab 09/18/24 05:01 Completed Comprehensive Metabolic Panel AMLAB Lab 09/18/24 05:01 Completed Free T4 (Free Thyroxine) Stat Lab 09/17/24 16:56 Completed HIV Combo Stat Lab 09/17/24 16:56 Completed Hepatitis C Ab Qual. W/ RFX Stat Lab 09/17/24 16:56 Completed Lactic Acid AMLAB Lab 09/18/24 05:01 Completed Lipase Stat Lab 09/17/24 16:56 Completed MAG [Magnesium] Stat Lab 09/17/24 16:56 Completed Magnesium AMLAB Lab 09/18/24 05:01 Completed PT INR [Prothrombin Time INR] Stat Lab 09/17/24 16:56 Completed Troponin I Q3H Lab 09/17/24 16:56 Completed Troponin I Q3H Lab 09/17/24 20:17 Completed Urinalysis and Microscopic Stat Lab 09/17/24 17:32 Completed Labs were independently interpreted by me, significant for acute kidney injury, elevated BUN, suspect prerenal Imaging was independently visualized and interpreted by me, significant for no acute surgical pathology Please refer to radiology report for full details. Patient will benefit from admission for further management of acute kidney injury. She still produces urine at this time. She was accepted for admission by hospitalist. Critical Care Critical Care Time Critical Care Time: No
--- NOTE | 2024-09-17 17:10 | CT_ITS ---
PROCEDURE INFORMATION: Exam: CT Head Without Contrast Exam date and time: 09/17/2024 6:02 PM Age: 64 years old Clinical indication: Other: Syncope, poss head injury, bt use TECHNIQUE: Imaging protocol: Computed tomography of the head without contrast. Total images: 563 Radiation optimization: All CT scans at this facility use at least one of these dose optimization techniques: automated exposure control; mA and/or kV adjustment per patient size (includes targeted exams where dose is matched to clinical indication); or iterative reconstruction. COMPARISON: MR HEAD/BRAIN WO/W CON 05/07/2019 10:31 AM FINDINGS: Brain: No acute intracranial hemorrhage, midline shift, or mass. Age-related cortical involution. Mild remote white matter small-vessel ischemic changes. No acute territorial infarct. Basilar cisterns are maintained. Cerebral ventricles: No ventriculomegaly. Paranasal sinuses: Visualized sinuses are unremarkable. No fluid levels. Mastoid air cells: Visualized mastoid air cells are well aerated. Auditory system: Small filling defect right external auditory canal compatible with cerumen. Bones: Mild hyperostosis of the frontal calvarium. No skull fracture. No concerning bone lesions. Soft tissues: Unremarkable. Vasculature: Mild calcifications bilateral intracranial internal carotid arteries. IMPRESSION: 1. No acute intracranial process. 2. Mild chronic findings.
[2024-09-17 17:19] LABS: Basophils % 0.1 % (0.1-2.0); Eosinophils % 0.2 % (0.1-12.0); Hematocrit 27.6 % (37.0-47.0); Hemoglobin 9.2 g/dL (12.2-16.2); Immature Granulocytes # 0.09 10^3uL; Immature Granulocytes % 0.9 %; Lymphocytes # 0.5 K/mm3 (0.7-4.5); Lymphocytes % 5.4 % (10-50); Mean Corpuscular HGB Conc 33.3 g/dL (31.8-35.4); Mean Corpuscular Hemoglobin 29.7 pg (27.0-31.2); Mean Platelet Volume 9.8 fl (7.4-10.4); Monocytes # 0.6 K/mm3 (0.1-1.0); Monocytes % 6.4 % (1.7-9.3); Neutrophils # 8.3 K/mm3 (1.8-7.8); Nucleated Red Blood Cells # 0 10^3/uL; Nucleated Red Blood Cells % 0 %; Platelet Count 216 K/mm3 (142-424); Red Cell Distribution Width 12.9 % (11.5-17.5); White Blood Count 9.5 K/mm3 (4.8-10.8)
[2024-09-17 17:26] LABS: Lipase 171 U/L (23-300); MANUAL DIFFERENTIAL MANUAL DIFFERENTIAL (MANUAL DIFF); Magnesium 1.4 mg/dl (1.6-2.3)
[2024-09-17 17:28] LABS: Alanine Aminotransferase 26 U/L (12-78); Albumin Level 4.5 g/dl (3.5-5.0); Albumin/Globulin Ratio 1.5 (1.1-1.8); Alkaline Phosphatase 60 U/L (38-126); Anion Gap 18.9 mEq/L (5-15); Aspartate Amino Transferase 40 U/L (14-36); Bilirubin,Total 0.4 mg/dl (0.2-1.3); Blood Urea Nitrogen 74 mg/dl (7-17); Calcium 9.3 mg/dl (8.4-10.2); Carbon Dioxide 27 mmol/L (22.0-30.0); Chloride 93 mmol/L (98-107); Creatine Kinase 264 U/L (30-135); Creatinine Clearance Estimated 16 mL/min (50-200); Estimated Glomerular Filt Rate 13 ml/min (>60); GFR (African American) 15 ML/MIN (>60); Glucose 115 mg/dl (74-100); Potassium 4.9 mmoL/L (3.5-5.1); Sodium 134 mmol/L (136-145); Total Protein,Serum 7.5 g/dl (6.3-8.2)
--- NOTE | 2024-09-17 17:32 | CT_ITS ---
PROCEDURE INFORMATION: Exam: CT Chest Without Contrast; Diagnostic Exam date and time: 09/17/2024 6:04 PM Age: 64 years old Clinical indication: Other: Syncope, bt use, larry, hypoxemia TECHNIQUE: Imaging protocol: Diagnostic computed tomography of the chest without contrast. Radiation optimization: All CT scans at this facility use at least one of these dose optimization techniques: automated exposure control; mA and/or kV adjustment per patient size (includes targeted exams where dose is matched to clinical indication); or iterative reconstruction. COMPARISON: CT LUNG SCREENING 06/30/2022 8:21 AM FINDINGS: Lungs: Mild centrilobular emphysematous changes with an apical gradient is present. Dependent bilateral lung base and lingular opacities favor atelectasis. Pleural spaces: Unremarkable. No pneumothorax. No pleural effusion. Heart: Unremarkable. No cardiomegaly. No pericardial effusion. Coronary arteries: Moderate three-vessel calcific atherosclerotic disease of the coronary arteries. Lymph nodes: Unremarkable. No enlarged lymph nodes. Vasculature: There is moderate calcific atherosclerotic disease of the thoracic aorta without aneurysmal dilatation. Bones/joints: Unremarkable. No acute fracture. Soft tissues: Unremarkable. IMPRESSION: No acute findings. COMMENTS: The presence of pulmonary emphysema on CT is an independent risk factor for lung cancer. In the absence of a history or active diagnosis of lung cancer, it is recommended that this patient with emphysema be evaluated for enrollment in a low dose CT lung cancer screening program.
--- NOTE | 2024-09-17 17:32 | CT_ITS ---
PROCEDURE INFORMATION: Exam: CT Abdomen And Pelvis Without Contrast Exam date and time: 09/17/2024 6:06 PM Age: 64 years old Clinical indication: Other: Fall, bt use, ecchymosis of abdomen, larry TECHNIQUE: Imaging protocol: Computed tomography of the abdomen and pelvis without contrast. Radiation optimization: All CT scans at this facility use at least one of these dose optimization techniques: automated exposure control; mA and/or kV adjustment per patient size (includes targeted exams where dose is matched to clinical indication); or iterative reconstruction. COMPARISON: CT ANGIO ABDOMEN 05/10/2019 10:46 AM FINDINGS: Tubes, catheters and devices: Implanted regional medical director with leads extending to T12-L1. Lungs: Dependent bilateral lung base opacities favor atelectasis. Liver: Normal. No mass. Gallbladder and biliary ducts: There are surgical clips within the gallbladder fossa. Pancreas: Normal. No ductal dilation. Spleen: Normal. No splenomegaly. Adrenal glands: Normal. No mass. Kidneys and ureters: Normal. No hydronephrosis. Stomach and bowel: Unremarkable. No obstruction. No mucosal thickening. Appendix: No evidence of appendicitis. Intraperitoneal space: Unremarkable. No free air. No significant fluid collection. Vasculature: Moderate calcific atherosclerotic disease of the abdominal aorta without aneurysmal dilatation is present. Moderate calcific atherosclerotic disease of the celiac axis and SMA status post stenting. Lymph nodes: Unremarkable. No enlarged lymph nodes. Urinary bladder: Unremarkable as visualized. Reproductive: The uterus appears surgically absent. Bones/joints: Unremarkable. No acute fracture. Soft tissues: Right lower quadrant ventral abdominal soft tissue subcutaneous hyperattenuating opacities compatible with small hematoma/contusion. IMPRESSION: Right lower quadrant ventral abdominal soft tissue subcutaneous hyperattenuating opacities compatible with small hematoma/contusion.
[2024-09-17 17:38] LABS: Prothrombin Time 11.1 seconds (10.1-12.5)
[2024-09-17 17:38] LABS: Microscopic, Urine URINE MICROSCOPIC (MICROSCOPIC)
[2024-09-17 17:39] LABS: Appearance,Urine CLEAR (Clear); Bilirubin,Urine Negative (Negative); Blood, Urine Negative (Negative); Color,Urine YELLOW (Yellow); Glucose,Urine (UA) Negative (Negative); Ketones,Urine Negative (Negative); Leukocyte Esterase,Urine Negative (Negative); Nitrate,Urine Negative (Negative); PH,Urine 5.5 (5.0-8.5); Protein,Urine Negative (Negative); Urobilinogen,Urine 0.2 EU/dl (0.2)
[2024-09-17 17:41] LABS: Troponin I < 0.01 ng/ml (0.00-0.034)
[2024-09-17 17:43] LABS: Free T4 (Free Thyroxine) 1.25 ng/dl (0.78-2.19)
[2024-09-17] MEDS: LACTATED RINGERS 1000ML 1,000 ML 999 ML IV (17:47)
[2024-09-17] MEDS: MAGNESIUM SULFATE IN WATER 2 GM/50 ML PIGGYBACK IV (17:47)
[2024-09-17 17:48] LABS: Lymphocytes % 6 % (10-50); Monocytes % 1 % (2-9); Neutrophils % 93 % (42-76); Total Cells Counted 100
[2024-09-17 17:49] LABS: Platelet Estimate Normal
[2024-09-17 17:51] LABS: RBC Morphology Normal
--- NOTE | 2024-09-17 17:56 | PC.NURSE ---
pt going for CT at this time
[2024-09-17 18:15] LABS: Hepatitis C Ab Qual. W/ RFX NEGATIVE (Negative)
[2024-09-17 18:20] LABS: Bacteria,Urine 1+ /lpf
[2024-09-17 18:25] LABS: HIV Combo NEGATIVE (Negative)
--- NOTE | 2024-09-17 20:09 | PC.WOUNDNOTE ---
Tech at the bedside to obtain repeat trop, pt states I'm under the impression that I'm staying overnight? Told the patient that was the plan patient states well youre wrong ED provider aware, charge account clerk at the bedside to discuss POC with patient in hopes of convincing her to stay.
--- NOTE | 2024-09-17 20:18 | PC.NURSE ---
report given to Belen RIOS.
[2024-09-17 20:51] LABS: Troponin I < 0.01 ng/ml (0.00-0.034)
--- NOTE | 2024-09-17 20:51 | PC.NURSE ---
Pt arrived on unit at 5 M Ro[facility] SRNA
[2024-09-17 21:38] LABS: POC Glucose,Bedside 181 (70-110)
--- NOTE | 2024-09-17 23:42 | P.HP_ITS ---
<Statement entered by Maurice Burgess MD - 09/24/24 17:49> Personally evaluated the patient and agree with the plan of care as outlined by the [facility] ARTIST. History of Present Illness *Admission Date: 09/17/24 *Reason for visit:: Weakness 2 episodes of altered mental status 1 occurring as a fall *History of present illness: This patient's medical history is quite complicated and concerning for her present symptoms of altered mental status falling and having no memory of the fall. Patient fell early Tuesday morning while going to the bathroom has bruising to the right lower abdomen and buttocks and side of her hip. Also some on a foot. She states she does not remember falling the next day while talking to her had a blank stare across her face similar TIAs type symptoms but came back within 10 to 15 seconds. Patient went to her primary care doctor who referred her to go to the ER. The patient reported to the ER doctor of having diarrhea but she is on a medication that can cause this. She also denied any chest pain and that she is able to bear weight now without any difficulty. Noted that the patient sometimes takes Benadryl and gabapentin also on blood pressure medication carvedilol. Also noting that patient's weight has basically been stable to for the last 5 years Other thing she is being treated for is diabetes in 2018 her hemoglobin A1c was greater than 11. Presently much improved and per record is on no active insulin only taking Trulicity and metformin Noted in her past history concerning for events of acute kidney injury. She had decreased GFR increased creatinine from 2019 2020 it improved from 20 21 through 20 24 per our records but then increased in the middle of 2023 her creatinine level and her GFR dropped presently, BUN 74 creatinine 3.4 with GFR dropping to 13. Talking with the ER doctor about this was assured that the patient is still making urine. I did question the family about this and they had no history of her having renal insufficiencies. Also noting that the patient is on cholesterol medication has had a right carotid enterectomy done in 2018 last Doppler of the carotid showed that the right stenosis was less than 50% but the left stenosis for the carotid artery was greater than 70%. Questioning whether some of this blacking out may be related to TIAs or carotid insufficiency related to blockages/stenosis Also with the patient's diabetes being so high in 218 but relatively controlled now we will recheck hemoglobin A1c to check at the present level. Question whether there may be some renal stenosis involved in this causing the renal labs with decreased GFR. Versus a combination of being on a medication that is injuring her versus diabetes that has been not diagnosed yet So we will admit patient to the floor to continue on labs replenish any hydration have physical therapy see her to evaluate risk of falling, and determine if carotid ultrasound of the is needed versus renal ultrasound is also needed. Found really no cardiac component of this but echo of the heart may also be required Other noted issues was 2019 and MRI was also for weakness and falling at that time there was a question of vessel ischemia versus findings of possible multiple sclerosis. Could not find any notes on follow-up for this. 12:15 also checking on the patient while she is sleeping in the unit. Patient is on room air respirations are regular patient then has pauses O2 saturations up from 92 down to about 86 then come right back up to 92.. Since the patient is stable at this point in time and sats are not dropping below 86 I have asked the staff not to awaken her and less she was to show signs of distress. But on awakening I have put in orders for a venous blood gas to see if she is acidotic or hypercapnic., And then would add oxygen as needed [facility] Disclaimer: The information contained in this section may have been updated after the patient was seen, as this information can be updated by other users. Medical History (Updated 09/18/24 @ 00:43 by Jonathon Mejia APRN) Viral syndrome Right carotid bruit Fatigue Exposure to COVID-19 virus Chest pain Hypomagnesemia Subcutaneous nodule of back Angina pectoris Abnormal stress test Dyspnea Dizziness Left carotid bruit Palpitations Diastolic dysfunction Aortic insufficiency Abdominal pain Celiac artery stenosis Surgical History (Updated 09/18/24 @ 00:40 by Jonathon Mejia APRN) History of right-sided carotid endarterectomy H/O carotid endarterectomy H/O: hysterectomy Hx of cholecystectomy History of colonoscopy Family History Other Family history of cancer Family history of diabetes mellitus type II Social History (Updated 09/17/24 @ 21:16 by BENJAMIN Gaitan) Smoking Status: Former smoker tobacco type: cigarettes packs per day: 1 second hand exposure: No alcohol intake: never substance use type: denies use current occupational status: disabled Travel in the last 8 weeks?: None household members: spouse and family housing: house current occupational exposures/hazards: No caffeine: Yes Have you lived/traveled outside [place] in past 30 days?: No Contact w/someone who lives/traveled outside US past 30 days?: No Exposure to someone with infectious disease in past 14 days?: No Do you have a fever (greater than 100.4 F or 38 C)?: No Have you tested positive for COVID-19?: No Exposed to someone with COVID-19 in past 14 days?: No Do you have a sore throat?: No Do you have a cough?: No Do you have any weakness?: No Do you have any diarrhea?: No Are you experiencing any unusual bleeding?: No Do you have any muscle aches/pain?: No Do you have any abdominal pain?: No Are you experiencing loss of taste or smell?: No Other Medical History Have you received the Flu Vaccine for this season: Yes Have you received the Pneumonia Vaccine: No Review of Systems Review of Systems Review of systems:: pertinent systems reviewed and negative unless documented below Constitutional Constitutional: Reports as per HPI, Reports daytime sleepiness and Reports frequent falls Eyes Eyes: Reports as per HPI ENT Ears, Nose, Mouth, and Throat: Reports as per HPI and Reports disequilibrium Comments: Denies sinus pain or neck pain *Cardiovascular Cardiovascular: Reports as per HPI Comments: Denies chest pain *Respiratory Respiratory: Reports system reviewed and no additional complaints, except as documented and Reports as per HPI *Gastrointestinal Gastrointestinal: Reports as per HPI *Genitourinary Genitourinary: Reports as per HPI *Musculoskeletal Musculoskeletal: Reports as per HPI and Reports stiffness Comments: Bruising noted from fall right lower abdomen around to the flank to the buttocks with a little bit on the right leg Integumentary/Breasts Skin/Breast: Reports as per HPI *Neurologic Neurologic: Reports as per HPI, Reports confusion, Reports disequilibrium, Reports frequent falls and Reports memory loss Psychiatric Psychiatric: Reports as per HPI, Reports confusion and Reports memory loss Comments: With significant after the last fall worse for this weekend then in the past Endocrine Endocrine: Reports as per HPI Hematologic/Lymphatic Hematologic/Lymphatic: Reports as per HPI Allergic/Immunologic Allergic/Immunologic: Reports as per HPI Meds Home Medications and Allergies Home Medications ?Medication ?Instructions ?Recorded ?Confirmed ?Type diphenhydramine HCl 25 mg capsule 25 mg PO Q4-6H aller gies 06/21/17 09/17/24 History (Benadryl) metformin 1,000 mg tablet 1,000 mg PO BID Diabetes 10/0309/17/24 History Held on 04/21/23. Instructions: Resume on 04/23/23. hold 48 hours ropinirole 1 mg tablet (Requip) 1 mg PO BID RLS 09/17/24 History trazodone 100 mg tablet 100 mg PO QHS sleep aid 10/0309/17/24 History aspirin 81 mg tablet,delayed 81 mg PO DAILY heart heal th 11/05/20 09/17/24 History release omeprazole 40 mg capsule,delayed 40 mg PO DAILY GERD 0 11/05/20 09/17/24 History release atorvastatin 20 mg tablet See Rx Instructions .Route 1 05/16/20 09/17/24 Rx .COMPLEX #90 tabs albuterol sulfate 90 mcg/actuation 2 puff inhalation O NCE PRN Asthma 07/02/21 09/17/24 History aerosol inhaler cyclobenzaprine 5 mg tablet 5 mg PO DAILY 07/08/2206/12 History fluticasone fur. 100 mcg-umeclid 1 inh inhalation JORDAN Y 07/08/22 09/17/24 History 62.5 mcg-vilant 25 mcg inhalat.powder (Trelegy Ellipta) gabapentin 600 mg tablet 600 mg PO BID 07/08/2209/17 History clopidogrel 75 mg tablet See Rx Instructions .Route 0 11/24/22 09/17/24 Rx .COMPLEX #90 tabs furosemide 40 mg tablet (Lasix) 40 mg PO DAILY #90 tab s 04/28/23 09/17/24 Rx carvedilol 12.5 mg tablet 12.5 mg PO BID 06/07/2406/12 History dulaglutide 1.5 mg/0.5 mL 1.5 mg SQ QWEEK 06/07/2406/12 History subcutaneous pen injector (Trulicity) duloxetine 60 mg capsule,delayed 60 mg PO DAILY 09/17/24 History release magnesium oxide 400 mg PO BID #60 tabs 06/1509/17/24 Rx lubiprostone 24 mcg capsule 24 mcg PO . 07/09/2409/17 History losartan 100 mg tablet 100 mg PO DAILY #30 tabs 09/17/24 Rx New Prescriptions to Start Prescriptions: Allergies Allergy/AdvReac Type Severity Reaction Status Date / Time menthol (From LidoPatch) Allergy Unknown SKIN RASH Verified 08/09/24 13:03 lidocaine AdvReac Unknown SKIN RASH Verified 08/09/24 13:03 Exam Data for Last 24 hours Vital signs and Labs for Last 24 Hours: Temp Pulse Resp BP Pulse Ox O2 Del Method 97.6 F 69 16 142/54 H 93 L Room Air 09/17/24 20:35 09/17/24 22:00 09/17/24 22:00 09/17/24 22:00 09/17/24 22:00 09/17/24 23:00 Laboratory Results - last 24 hr 09/17/24 16:56: WBC 9.5, RBC 3.10 L, Hgb 9.2 L, Hct 27.6 L, MCV 89.0, MCH 29.7, MCHC 33.3, RDW 12.9, Plt Count 216, MPV 9.8, Neut % (Auto) 87.0 H, Lymph % (Auto) 5.4 L, Clare % (Auto) 6.4, Eos % (Auto) 0.2, Baso % (Auto) 0.1, Neut # (Auto) 8.3 H, Lymph # (Auto) 0.5 L, Clare # (Auto) 0.6, Eos # (Auto) 0.0, Baso # (Auto) 0.0, Total Counted 100, Neutrophils % (Manual) 93 H, Lymphocytes % (Manual) 6 L, Monocytes % (Manual) 1 L, Platelet Estimate Normal, RBC Morphology Normal, PT 11.1, INR 1.00, Sodium 134 L, Potassium 4.9, Chloride 93 L, Carbon Dioxide 27, Anion Gap 18.9 H, BUN 74 H, Creatinine 3.60 H, Estimated Creat Clear 16, Estimated GFR 13 L*, Est GFR ( Amer) 15 L*, Glucose 115 H, Calcium 9.3, Magnesium 1.4 L, Total Bilirubin 0.4, AST 40 H, ALT 26, Alkaline Phosphatase 60, Total Creatine Kinase 264 H, Troponin I < 0.01, Total Protein 7.5, Albumin 4.5, Globulin 3.0, Albumin/Globulin Ratio 1.5, Lipase 171, Free T4 1.25, HCV Ab NICHOLAS w/Rflx PCR Qn Negative, HIV Ag/Ab Combo Qual Negative 09/17/24 17:32: Urine Color Yellow, Urine Appearance Clear, Urine pH 5.5, Ur Specific [place] 1.010, Urine Protein Negative, Urine Glucose (UA) Negative, Urine Ketones Negative, Urine Blood Negative, Urine Nitrate Negative, Urine Bilirubin Negative, Urine Urobilinogen 0.2, Ur Leukocyte Esterase Negative, Urine RBC 3-5, Urine WBC 5-10, Ur Squamous Epith Cells 5-10, Urine Bacteria 1+ 09/17/24 20:17: Troponin I < 0.01 09/17/24 21:32: POC Glucose 181 H I & O for Last 24 hours: Intake & Output 09/15/24 09/16/24 09/17/24 09/18/24 05:59 05:59 05:59 05:59 Weight 148 lb Radiology Reports for the Last 24 Hours: Right lower quadrant ventral abdominal soft tissue subcutaneous hyperattenuating opacities compatible with small hematoma/contusion. Chest CT no acute finding Constitutional Constitutional: mild distress, average body habitus, chronically ill appearing and cooperative *Routine HEENT Exam Head: Present normocephalic and atraumatic Eye: Present EOMI, PERRL and normal accommodation ENT: Present mucous membranes moist and oropharynx clear *Routine Neck Exam Neck: Present supple and carotid bruit (Per Long history of carotid stenosis with partial blockage) Comments: No neck tenderness found Routine Chest/Breast/Axilla Exam Chest wall: Present tenderness (Mild tenderness to the chest wall none to the breast no signs of bruising to the upper back) *Routine Respiratory Exam Respiratory: Present decreased breath sounds, CTA bilaterally, normal respiratory effort, able to speak in complete sentences and symmetric chest movement *Routine Cardiovascular Exam Cardiovascular: Present RRR, Normal S1 and Normal S2 Comments: No edema in lower extremities *Routine Abdominal Exam Abdominal: Present soft Comments: Bruising is noted to right lower quadrant, was no palpation to that area no other significant abdominal pain was found *Routine Rectal Exam Rectal:: deferred *Routine Genitalia Exam Genitalia:: deferred *Routine Extremities Exam Extremities: Present full ROM and normal capillary refill Comments: No tenderness to the arms or legs. No signs of any edema or significant bruising found right arm upper head small bruises to it consistent with fall on Tuesday Routine Back/Spine/Pelvis Exam Back/Spine: Present full ROM and CVA tenderness Comments: On the right side of the back around the right hip is bruising there was a little bit of areas approximately dime to quarter size a little further up the back that was bruised and to the shoulder very faint *Routine Skin Exam Skin: Present intact, warm and normal turgor Comments: Skin was intact with no tears from the previous fall *Routine Neurological Exam Neurological: Present alert, oriented X3, CN II-XII intact, normal reflexes, moving all extremities, vision grossly intact and hearing grossly intact Comments: Did not walk the patient during my exam, patient complained of significant lower leg pain just to light palpation of both shins anteriorly Routine Psychiatric Exam Psychiatric: Present normal affect, normal thought process, cooperative, good insight and good judgment Comments: The patient did well but just a little confused and slow about what is going on this weekend since she has been ill H&P: Result Impressions 1. Weakness with falling, minor contusion to right side right abdomen 2. Altered mental status twice 1 leading to a fall and 1 leading to a TIA like event for approximately 15 seconds 3. Worsening renal function. Per note over the last several years suddenly worsening in the past 2 months 4. Diabetes mellitus, on 2 medications 5. Carotid stenosis left seems to be worse than right 6. Anemia decreasing H&H noted Imaging and Cardiology Chest x-ray: Status: image reviewed by me Additional comments: No acute findings CT scan - abdomen: Additional comments: Normal but showing probable hematoma in the lower right abdomen from the fall Assessment and Plan *Assessment and plan (1) Acute kidney injury: Status: Acute Category: Medical Code(s): N17.9 - Acute kidney failure, unspecified (2) Altered mental status: Status: Acute Qualifiers: Altered mental status type: transient alteration of awareness Qualified Code(s): R40.4 - Transient alteration of awareness Category: Medical Code(s): R41.82 - Altered mental status, unspecified (3) Falling: Status: Acute Category: Medical Code(s): R29.6 - Repeated falls (4) Hypomagnesemia: Status: Acute Category: Medical Code(s): E83.42 - Hypomagnesemia (5) DM (diabetes mellitus): Status: Chronic Qualifiers: Diabetes mellitus complication status: without complication Diabetes mellitus terminal clerk insulin use: without retirement use Diabetes mellitus type: type 2 Qualified Code(s): E11.9 - Type 2 diabetes mellitus without complications Category: Medical Code(s): E11.9 - Type 2 diabetes mellitus without complications (6) Anemia: Status: Acute Qualifiers: Anemia type: unspecified type Qualified Code(s): D64.9 - Anemia, unspecified Category: Medical Code(s): D64.9 - Anemia, unspecified (7) Carotid bruit: Status: Chronic Qualifiers: Laterality: bilateral Qualified Code(s): R09.89 - Other specified symptoms and signs involving the circulatory and respiratory systems Category: Medical Code(s): R09.89 - Other specified symptoms and signs involving the circulatory and respiratory systems (8) Nocturnal hypoxia: Status: Acute Category: Medical Code(s): G47.34 - Idiopathic sleep related nonobstructive alveolar hypoventilation (9) Bilateral leg pain: Status: Acute Category: Medical Code(s): M79.604 - Pain in right leg; M79.605 - Pain in left leg Plan 1. Patient will be admitted to evaluate for ability to ambulate, also possible that carotid ultrasounds will need and also renal ultrasounds will be needed., Question cause for falling and for periods of altered mental status. Evaluation must be done to evaluate for the decrease in H&H. And also have pharmacy consult to evaluate medication that may be causing kidney injury. 2. Patient's history is very complicated question as to why everything is coming to a crisis point now that she is beginning to fall having loss of memory kidney function declining immensely and now anemia also increasing. Further testing will be needed and also will consult specialist as required.
[2024-09-18] VITALS (13 sets, daily range): BP systolic 121–180; BP diastolic 38–99; PULSE 63–83; RESP 9–19; TEMP 36.4–36.6; O2SAT 88–98; BMI 26.2
--- NOTE | 2024-09-18 04:04 | EXP.EVENT.NO ---
Problem, patient has itchy skin, would like her Benadryl states that she takes Benadryl at least 4 times a day, patient is here because of confusion mental altered and sometimes falling exam: Patient is awake and alert talking with me she says her and her skin itches she also has some kind of regular tremoring movement with one of her legs. While she is talking to me Plan: Talked with the patient and found out that she has been on Benadryl 4 times a day for a long period of time, that medication can cause all sorts of side effects I told her that I would like to hold it and I would start her on Claritin, we will see if she will be able to tolerate this. In question is has the Benadryl been a problem that nobody has seen because she has been taking it regularly for a long period of time at least 4 tablets a day
[2024-09-18] MEDS: LORATADINE 10MG TABLET 10 MG PO (04:16)
[2024-09-18 06:00] LABS: VBG Base Excess 1.6 mmol/L (-2.4-2.3); VBG HCO3 27.2 mmol/L (23-30); VBG Oxygen Saturation 97.3 % (50-70); VBG PH 7.35 mmol/L (7.31-7.41); VBG PO2 101.5 mmol/L (28-40); VBG Total CO2 28.7 mmol/L (23-27)
[2024-09-18 06:04] LABS: Basophils % 0.1 % (0.1-2.0); Eosinophils # 0.2 Kmm3 (0.0-0.4); Eosinophils % 2.2 % (0.1-12.0); Hematocrit 26.8 % (37.0-47.0); Hemoglobin 8.7 g/dL (12.2-16.2); Immature Granulocytes # 0.05 10^3uL; Immature Granulocytes % 0.6 %; Lymphocytes # 1.1 K/mm3 (0.7-4.5); Lymphocytes % 13.8 % (10-50); Mean Corpuscular HGB Conc 32.5 g/dL (31.8-35.4); Mean Corpuscular Volume 89.3 fl (81-99); Mean Platelet Volume 9.7 fl (7.4-10.4); Monocytes # 0.7 K/mm3 (0.1-1.0); Neutrophils # 5.7 K/mm3 (1.8-7.8); Neutrophils % 74.3 % (37.0-80.0); Nucleated Red Blood Cells # 0 10^3/uL; Nucleated Red Blood Cells % 0 %; Platelet Count 220 K/mm3 (142-424); Red Cell Distribution Width 13.1 % (11.5-17.5); Red Cell Distribution Width-SD 42.5 fL; White Blood Count 7.7 K/mm3 (4.8-10.8)
[2024-09-18 06:08] LABS: Lactate Venous 3.1 mmol/L (0.4-2.0); VBG PCO2 50.5 mmol/L (35-51)
[2024-09-18 06:45] LABS: Lactic Acid 2.3 mmol/L (0.7-2.1)
[2024-09-18 07:18] LABS: Albumin Level 3.9 g/dl (3.5-5.0)
[2024-09-18 07:19] LABS: Chloride 95 mmol/L (98-107); Sodium 134 mmol/L (136-145)
[2024-09-18 07:21] LABS: Alanine Aminotransferase 17 U/L (12-78); Aspartate Amino Transferase 31 U/L (14-36); Blood Urea Nitrogen 70 mg/dl (7-17); Creatinine Clearance Estimated 18 mL/min (50-200); Estimated Glomerular Filt Rate 14 ml/min (>60); GFR (African American) 17 ML/MIN (>60)
[2024-09-18 07:22] LABS: Alkaline Phosphatase 64 U/L (38-126); Bilirubin,Total 0.3 mg/dl (0.2-1.3); Calcium 8.8 mg/dl (8.4-10.2); Carbon Dioxide 30 mmol/L (22.0-30.0); Glucose 205 mg/dl (74-100); Total Protein,Serum 6.4 g/dl (6.3-8.2)
[2024-09-18 07:27] LABS: Albumin/Globulin Ratio 1.6 (1.1-1.8); Globulin 2.5 g/dL (1.3-3.2); Hemoglobin A1C 5.8 % (4.0-6.0)
--- NOTE | 2024-09-18 08:06 | HMH.PHAINT1 ---
Pharmacy Intervention Comments: MEDICATION RECONCILIATION COMPLETED ON PATIENT USING EXTERNAL FILL HISTORY FROM PHARMACY. -KEYONNA VERNON, NAVDEEPD
[2024-09-18] MEDS: LACTATED RINGERS 1000ML 1,000 ML 500 ML IV (09:01)
--- NOTE | 2024-09-18 09:01 | CA_ITS ---
APPROVED REPORT EXAM: Comprehensive 2D, Doppler, and color-flow Echocardiogram Stamping Die Maker: Anjelica Sandra RT(R) Ht: 5 ft 3 in Wt: 148lbs BSA: 1.70 BP: 142/54 mmHg Indications: murmur, recent falls, ex smoker, DM, LANIER, palpitations 2D Dimensions LVEF (Mcmanus's) 66.30 % F: 54 - 74 LV Volume 65.80 mL F: 46 - 106 LV Volume Index 38.7 mL/m2 F: 29 - 61 LA Volume 31.60 mL LA Volume Index 18.59 mL/m2 (M/F) 16-34 EF AP4 58.40 % EF AP2 70.8 % EF BP 66.3 % GL Strain -20.9 % M-Mode Dimensions RVDd 2.89 cm (0.9-2.6) LA Diam 3.58 cm (1.9-4.0) LVDd 3.88 cm (3.5-5.7) LVDs 2.74 cm (3.5-5.7) IVSd 0.87 cm (0.6-1.1) PWd 0.84 cm (0.6-1.1) EF (Teich) 57.00% FS 29.40% EDV (Teich) 65.10 mL ESV (Teich) 28.00 mL LV Diastology E Decel Time 157 (160-240 msec) E/A Ratio 1.0 Aortic Valve RAFAELA Index 1.17 cm2/m2 AoV Peak Junior. 158.0 (50-130 cm/s) AO Peak GR. 10.00 mmHg AO Mean GR. 5.00 (<5 mmHg) AO VTI 39.6 (18-25 cm) RAFAELA (VTI) 2.04 (2.5-4.5 cm2) Mitral Valve MV E Max Junior. 119.0 (40-130 cm/s) MV A Velocity 121.0 (40-130 cm/s) E/A Ratio 0.99 MV PHT 46.0 ms Tricuspid Valve TR P. Velocity 353.00 cm/s RAP Estimate 10.00 mmHg RVSP 59.70 mmHg Left Ventricle The left ventricle is normal size. The left ventricular systolic function is normal. The left ventricular ejection fraction is within the normal range. There is increased LV wall thickness. Proximal septal thickening is present. There is normal LV segmental wall motion. Transmitral Doppler flow pattern suggests impaired LV relaxation. LVEF is 60%. Right Ventricle The right ventricle is normal size. The right ventricular systolic function is normal. Atria The left atrium size is normal. The right atrium size is normal. There is no Doppler evidence of interatrial shunt. Aortic Valve The aortic valve is mildly thickened. There is no aortic valvular stenosis. Mild to moderate aortic regurgitation. Mitral Valve The mitral valve is mildly thickened. No evidence of mitral valve stenosis. Trace mitral regurgitation. Tricuspid Valve Tricuspid valve is grossly normal in structure and function. Mild tricuspid regurgitation. RVSP is 30???35 mmHg. Pulmonic Valve The pulmonary valve is normal in structure. Trace pulmonic regurgitation. Great Vessels The aortic root is normal in size. IVC is normal in size and collapses >50% with inspiration. Pericardium There is no pericardial effusion. Other Information Study Quality: Fair Conclusion Normal biventricular systolic function. Mild to moderate AI. Mild TR. Electronically signed by : Francesca Wilson MD 09/18/2024 13:21:54
--- NOTE | 2024-09-18 09:18 | PC.NURSE ---
Pts oxygen saturation level is 95% on room air at rest.
--- NOTE | 2024-09-18 09:27 | EXP.PULM.CON ---
History of Present Illness History of present illness: Ms. Chester is a 64-year-old female greater than [id number] smoking history last smoked 2019, SMA stenting around 2017, carotid endarterectomy right side around 2019 stop smoking symptom was admitted to the hospital after her outpatient labs revealed worsening renal function. [facility] Disclaimer: The information contained in this section may have been updated after the patient was seen, as this information can be updated by other users. Medical History (Updated 09/18/24 @ 10:51 by Minda Miller MD) Acute respiratory failure with hypoxia Pulmonary emphysema Viral syndrome Right carotid bruit Fatigue Exposure to COVID-19 virus Chest pain Hypomagnesemia Subcutaneous nodule of back Angina pectoris Abnormal stress test Dyspnea Dizziness Left carotid bruit Palpitations Diastolic dysfunction Aortic insufficiency Abdominal pain Celiac artery stenosis Surgical History (Updated 09/18/24 @ 00:40 by Jonathon Mejia APRN) History of right-sided carotid endarterectomy H/O carotid endarterectomy H/O: hysterectomy Hx of cholecystectomy History of colonoscopy Family History Other Family history of cancer Family history of diabetes mellitus type II Social History (Updated 09/17/24 @ 21:16 by BENJAMIN Gaitan) Smoking Status: Former smoker tobacco type: cigarettes packs per day: 1 second hand exposure: No alcohol intake: never substance use type: denies use current occupational status: disabled Travel in the last 8 weeks?: None household members: spouse and family housing: house current occupational exposures/hazards: No caffeine: Yes Have you lived/traveled outside [place] in past 30 days?: No Contact w/someone who lives/traveled outside [place] past 30 days?: No Exposure to someone with infectious disease in past 14 days?: No Do you have a fever (greater than 100.4 F or 38 C)?: No Have you tested positive for COVID-19?: No Exposed to someone with COVID-19 in past 14 days?: No Do you have a sore throat?: No Do you have a cough?: No Do you have any weakness?: No Do you have any diarrhea?: No Are you experiencing any unusual bleeding?: No Do you have any muscle aches/pain?: No Do you have any abdominal pain?: No Are you experiencing loss of taste or smell?: No Review of Systems Constitutional Constitutional: Reports fatigue, Reports frequent falls, Reports poor appetite and Reports lethargy Eyes Eyes: Denies eye discharge, Denies dry eyes, Denies irritation and Denies itchy eyes ENT Ears, Nose, Mouth, and Throat: Reports disequilibrium, Denies lip swelling and Denies throat swelling *Cardiovascular Cardiovascular: Reports dyspnea and Reports dyspnea on exertion *Respiratory Respiratory: Denies change in phlegm color, Denies chest congestion, Reports cough, Reports dyspnea, Reports dyspnea on exertion, Denies excessive phlegm production and Denies wheezing *Gastrointestinal Gastrointestinal: Denies abdominal pain, Denies belching and Denies cramping *Musculoskeletal Musculoskeletal: Reports back pain, Reports myalgias and Reports other (No small joint swelling or Pain) *Neurologic Neurologic: Reports as per HPI, Reports confusion, Reports disequilibrium, Reports frequent falls and Reports memory loss Psychiatric Psychiatric: Reports confusion and Reports memory loss Endocrine Endocrine: Reports fatigue and Denies heat intolerance Hematologic/Lymphatic Hematologic/Lymphatic: Denies easy bleeding and Denies lymphadenopathy Allergic/Immunologic Allergic/Immunologic: Denies itchy eyes, Denies lip swelling, Denies throat swelling and Denies wheezing Pulmonology Exam Inpatient Vital signs and Labs for Last 24 Hours: Temp Pulse Resp BP Pulse Ox O2 Del Method O2 Flow Rate 97.9 F 77 15 164/63 H 95 Room Air 1 09/18/24 08:01 09/18/24 09:03 09/18/24 08:01 09/18/24 09:03 09/18/24 09:18 09/18/24 09:18 09/18/24 08:01 Laboratory Results - last 24 hr 09/17/24 16:56: WBC 9.5, RBC 3.10 L, Hgb 9.2 L, Hct 27.6 L, MCV 89.0, MCH 29.7, MCHC 33.3, RDW 12.9, Plt Count 216, MPV 9.8, Neut % (Auto) 87.0 H, Lymph % (Auto) 5.4 L, [place] % (Auto) 6.4, Eos % (Auto) 0.2, Baso % (Auto) 0.1, Neut # (Auto) 8.3 H, Lymph # (Auto) 0.5 L, [place] # (Auto) 0.6, Eos # (Auto) 0.0, Baso # (Auto) 0.0, Total Counted 100, Neutrophils % (Manual) 93 H, Lymphocytes % (Manual) 6 L, Monocytes % (Manual) 1 L, Platelet Estimate Normal, RBC Morphology Normal, PT 11.1, INR 1.00, Sodium 134 L, Potassium 4.9, Chloride 93 L, Carbon Dioxide 27, Anion Gap 18.9 H, BUN 74 H, Creatinine 3.60 H, Estimated Creat Clear 16, Estimated GFR 13 L*, Est GFR ( Amer) 15 L*, Glucose 115 H, Calcium 9.3, Magnesium 1.4 L, Total Bilirubin 0.4, AST 40 H, ALT 26, Alkaline Phosphatase 60, Total Creatine Kinase 264 H, Troponin I < 0.01, Total Protein 7.5, Albumin 4.5, Globulin 3.0, Albumin/Globulin Ratio 1.5, Lipase 171, Free T4 1.25, HCV Ab NICHOLAS w/Rflx PCR Qn Negative, HIV Ag/Ab Combo Qual Negative 09/17/24 17:32: Urine Color Yellow, Urine Appearance Clear, Urine pH 5.5, Ur Specific [place] 1.010, Urine Protein Negative, Urine Glucose (UA) Negative, Urine Ketones Negative, Urine Blood Negative, Urine Nitrate Negative, Urine Bilirubin Negative, Urine Urobilinogen 0.2, Ur Leukocyte Esterase Negative, Urine RBC 3-5, Urine WBC 5-10, Ur Squamous Epith Cells 5-10, Urine Bacteria 1+ 09/17/24 20:17: Troponin I < 0.01 09/17/24 21:32: POC Glucose 181 H 09/18/24 05:01: WBC 7.7, RBC 3.00 L, Hgb 8.7 L, Hct 26.8 L, MCV 89.3, MCH 29.0, MCHC 32.5, RDW 13.1, Plt Count 220, MPV 9.7, Neut % (Auto) 74.3, Lymph % (Auto) 13.8, [place] % (Auto) 9.0, Eos % (Auto) 2.2, Baso % (Auto) 0.1, Neut # (Auto) 5.7, Lymph # (Auto) 1.1, [place] # (Auto) 0.7, Eos # (Auto) 0.2, Baso # (Auto) 0.0, VBG pH 7.35, VBG pCO2 50.5, VBG pO2 101.5 H, VBG HCO3 27.2, VBG Total CO2 28.7 H, VBG O2 Saturation 97.3 H, VBG Base Excess 1.6, VBG Lactic Acid 3.1 H, Sodium 134 L, Potassium 5.0, Chloride 95 L, Carbon Dioxide 30, Anion Gap 14.0, BUN 70 H, Creatinine 3.30 H, Estimated Creat Clear 18, Estimated GFR 14 L*, Est GFR ( Amer) 17 L*, Glucose 205 H D, Hemoglobin A1c 5.8, Lactate 2.3 H, Calcium 8.8, Magnesium 2.0 D, Total Bilirubin 0.3, AST 31, ALT 17 D, Alkaline Phosphatase 64, Total Protein 6.4, Albumin 3.9 D, Globulin 2.5, Albumin/Globulin Ratio 1.6 I & O for Labs for Last 24 Hours: Intake & Output 09/15/24 09/16/24 09/17/24 09/18/24 23:59 23:59 23:59 23:59 Intake Total 222 / 222 Output Total 0 / 0 Balance 222 / 222 Weight 148 lb Constitutional: Present moderate distress Head: Present normocephalic and atraumatic ENT: Present normal exam, normal oropharynx and mucous membranes moist Neck: Present normal inspection and full ROM Respiratory: Present normal respiratory effort and able to speak in complete sentences; Absent prolonged expiratory phase, respiratory distress, wheezes, crackles or diminished air movement Cardiac: Present S1/S2, Tachycardia and radial pulses present GI: Present soft and distention; Absent tenderness or guarding Rectal (female): Present deferred (female): Present deferred Skin: Present intact; Absent cyanosis or jaundice Neuro: Present alert, awake and oriented x 3 Extremities: Present normal inspection; Absent clubbing or cyanosis Psychiatric: Present normal affect and cooperative Meds Home Medications and Allergies Home Medications ?Medication ?Instructions ?Recorded ?Confirmed ?Type diphenhydramine HCl 25 mg capsule 25 mg PO QID 06/21/17 09/18/24 History (Benadryl) aspirin 81 mg tablet,delayed 81 mg PO DAILY 11/05/20 09/17/24 History release omeprazole 40 mg capsule,delayed 40 mg PO DAILY 11/05/20 09/17/24 History release albuterol sulfate 90 mcg/actuation 2 puff inhalation Q6HP PRN 07/02/21 09/18/24 History aerosol inhaler Shortness Of Breath Or Wheezing fluticasone fur. 100 mcg-umeclid 1 inh inhalation DAILY 07/08/22 09/17/24 History 62.5 mcg-vilant 25 mcg inhalat.powder (Trelegy Ellipta) gabapentin 600 mg tablet 600 mg PO TID 07/08/22 09/18/24 History carvedilol 12.5 mg tablet 12.5 mg PO BID 06/07/24 09/17/24 History dulaglutide 1.5 mg/0.5 mL 1.5 mg SQ WEEKLY 06/07/24 09/18/24 History subcutaneous pen injector (Trulicity) duloxetine 60 mg capsule,delayed 60 mg PO DAILY 06/07/24 09/17/24 History release lubiprostone 24 mcg capsule 24 mcg PO BID 07/09/24 09/18/24 History losartan 100 mg tablet 100 mg PO DAILY #30 tabs 08/09/24 09/17/24 Rx atorvastatin 20 mg tablet 20 mg PO DAILY 09/18/24 09/18/24 History clopidogrel 75 mg tablet 75 mg PO DAILY 09/18/24 09/18/24 History magnesium oxide 400 mg PO DAILY 09/18/24 09/18/24 History metformin 1,000 mg tablet 1,000 mg PO BID 09/18/24 09/18/24 History methylprednisolone 4 mg tablets in 4 mg PO DIRECTED 09/18/24 09/18/24 History a dose pack ropinirole 1 mg tablet 0.5 mg PO DAILY 09/18/24 09/18/24 History ropinirole 1 mg tablet 1 mg PO HS 09/18/24 09/18/24 History New Prescriptions to Start Prescriptions: Allergies Allergy/AdvReac Type Severity Reaction Status Date / Time menthol (From LidoPatch) Allergy Unknown SKIN RASH Verified 08/09/24 13:03 lidocaine AdvReac Unknown SKIN RASH Verified 08/09/24 13:03 Results Laboratory Findings 09/18/24 05:01 09/18/24 05:01 PT/INR, D-dimer PT 11.1 seconds (10.1-12.5) 09/17/24 16:56 INR 1.00 (0.9-1.1) 09/17/24 16:56 Abnormal lab findings: Abnormal Labs 0609/17/24 09/18/24 16:56 21:32 05:01 RBC 3.10 L 3.00 L Hgb 9.2 L 8.7 L Hct 27.6 L 26.8 L Neut % (Auto) 87.0 H Lymph % (Auto) 5.4 L Neut # (Auto) 8.3 H Lymph # (Auto) 0.5 L Neutrophils % (Manual) 93 H Lymphocytes % (Manual) 6 L Monocytes % (Manual) 1 L VBG pO2 101.5 H VBG Total CO2 28.7 H VBG O2 Saturation 97.3 H VBG Lactic Acid 3.1 H Sodium 134 L 134 L Chloride 93 L 95 L Anion Gap 18.9 H BUN 74 H 70 H Creatinine 3.60 H 3.30 H Estimated GFR 13 L* 14 L* Est GFR ( Amer) 15 L* 17 L* Glucose 115 H 205 H D POC Glucose 181 H Lactate 2.3 H Magnesium 1.4 L AST 40 H Total Creatine Kinase 264 H Assessment and Plan *Assessment and plan (1) Pulmonary emphysema: Status: Acute Category: Medical Code(s): J43.9 - Emphysema, unspecified (2) Acute respiratory failure with hypoxia: Status: Acute Category: Medical Code(s): J96.01 - Acute respiratory failure with hypoxia Plan Ms. Chester is a 64-year-old female greater than [id number] smoking history last smoked 2019, SMA stenting around 2017, carotid endarterectomy right side around 2019 stop smoking symptom was admitted to the hospital after her outpatient labs revealed worsening renal function. Patient also admits decreased p.o. intake for the last 5 to 7 days largely from decreased appetite. Denies any abdominal pain/discomfort. Afebrile. Hemodynamically stable. No evidence of leukocytosis. Worsening renal function. [place] on CKD. CT chest upon admission -minimal emphysematous changes. No dense consolidative/airspace changes. No effusions. No mediastinal or hilar lymphadenopathy appreciated. CT abdomen reported to be unremarkable except for concerning for right lower quadrant abdominal soft tissue may be symptom. Atherosclerotic disease, stenting to SMA. Patient has been needing oxygen supplementation overnight, weaned to room air. CT showed minimal emphysematous changes and has been on Trelegy 100 inhaler. Plan: Wean Trelegy to Anoro inhaler. DuoNebs 4 times daily as needed Oxygen supplementation as needed to maintain O2 saturation below 90% and above # Thank you for involving pulmonary in patient care.
[2024-09-18 10:05] LABS: Reflex Lactic Add Lactic Reflex
--- NOTE | 2024-09-18 10:18 | HMH.PTEV ---
Physical Therapy Evaluation Rehab PT IP Evaluation Start: 09/17/24 21:44 Freq: ONCE Status: Active Protocol: Document 09/18/24 10:10 RUDY (Rec: 09/18/24 10:18 RUDY [id number]) Subjective/History History History Per H&P: This patient's medical history is quite complicated and concerning for her present symptoms of altered mental status falling and having no memory of the fall. Patient fell early Tuesday morning while going to the bathroom has bruising to the right lower abdomen and buttocks and side of her hip. Also some on a foot. She states she does not remember falling the next day while talking to her had a blank stare across her face similar TIAs type symptoms but came back within 10 to 15 seconds. Patient went to her primary care doctor who referred her to go to the ER. Subjective Subjective Pt lives at home with her and is usually IND with all mobility using a cane. Pt does not drive. Denies any falls in past 6 months (besides her Tuesday morning fall) [facility] How much help from another person do you currently need... Turning from your None back to your side while in a flat bed without using bedrails? Moving from lying on None back to sitting on the side of a flat bed without using bedrails? Moving to and from a None bed to a chair ( including a wheelchair)? Standing up from a None chair using your arms? (e.g., wheelchair, bedside chair) Walking in hospital A little room? Climbing 3-5 steps A little with a railing? Mobility Score 22 Mobility Level [facility] Mobility 7 Walk 25 feet or more Mobility Calculator Rehab PT IP Eval Objective Appearance Patient Behavior Appropriate,Cooperative Patient Orientation Person,Place,Situation Difficulty following none instructions Speech Pattern Clear Ambulation Patient Able to Yes Ambulate Ambulation Observation IP General Gait Wide Based Gait,Shuffling Step Pattern Observation Ambulation Distance 50 (feet) Ambulation Assistive Straight Cane Device Ambulation Ability Contact Guard/Hand Hold Balance Ability to Arise Able, uses arms to help Sitting Balance Steady, safe Standing Balance Steady, wide stance Dynamic Sitting Good Balance Ability Dynamic Standing Fair Balance Ability Transfers Bed Transfer Ability Independent Sit to Stand Bed Supervision/Stand by Transfer Ability Rehab PT IP prob,goals,plan Problems Date of Evaluation: 09/18/24 Rehab Potential Rehab Potential Innapropriate for Skilled Therapy Discharge Plan PT Discharge Plan Pt most appropriate to d/c home when deemed medically necessary d/t current level of mobility, home set-up, and family support. PT recommending pt use her RW instead of cane to improve stability/safety with ambulation tasks d/t some sway noted throughout gait assessment. Pt was able to self correct sway without cues. Pt not appropriate for skilled acute care PT at this time d/t pt?s mobility being at baseline. Eval Complexity Eval Charge Codes 47615 - Moderate Complexity PHYSICIAN CERTIFICATION: I certify the specified therapy services for Dilia Chester are required, authorized, and reviewed every 30 days.
[2024-09-18] MEDS: UMECLIDINIUM/VILANTEROL 62.5/25MCG INHALER 1 PUFF IH (11:25)
--- NOTE | 2024-09-18 13:58 | EXP.DC.SUM ---
General Admission date:: 09/17/24 HPI HPI HPI: This patient's medical history is quite complicated and concerning for her present symptoms of altered mental status falling and having no memory of the fall. Patient fell early Tuesday morning while going to the bathroom has bruising to the right lower abdomen and buttocks and side of her hip. Also some on a foot. She states she does not remember falling the next day while talking to her had a blank stare across her face similar TIAs type symptoms but came back within 10 to 15 seconds. Patient went to her primary care doctor who referred her to go to the ER. The patient reported to the ER doctor of having diarrhea but she is on a medication that can cause this. She also denied any chest pain and that she is able to bear weight now without any difficulty. Noted that the patient sometimes takes Benadryl and gabapentin also on blood pressure medication carvedilol. Also noting that patient's weight has basically been stable to for the last 5 years Other thing she is being treated for is diabetes in 2018 her hemoglobin A1c was greater than 11. Presently much improved and per record is on no active insulin only taking Trulicity and metformin Noted in her past history concerning for events of acute kidney injury. She had decreased GFR increased creatinine from 2019 2020 it improved from 20 21 through 20 24 per our records but then increased in the middle of 2023 her creatinine level and her GFR dropped presently, BUN 74 creatinine 3.4 with GFR dropping to 13. Talking with the ER doctor about this was assured that the patient is still making urine. I did question the family about this and they had no history of her having renal insufficiencies. Also noting that the patient is on cholesterol medication has had a right carotid enterectomy done in 2018 last Doppler of the carotid showed that the right stenosis was less than 50% but the left stenosis for the carotid artery was greater than 70%. Questioning whether some of this blacking out may be related to TIAs or carotid insufficiency related to blockages/stenosis Also with the patient's diabetes being so high in 218 but relatively controlled now we will recheck hemoglobin A1c to check at the present level. Question whether there may be some renal stenosis involved in this causing the renal labs with decreased GFR. Versus a combination of being on a medication that is injuring her versus diabetes that has been not diagnosed yet So we will admit patient to the floor to continue on labs replenish any hydration have physical therapy see her to evaluate risk of falling, and determine if carotid ultrasound of the is needed versus renal ultrasound is also needed. Found really no cardiac component of this but echo of the heart may also be required Other noted issues was 2019 and MRI was also for weakness and falling at that time there was a question of vessel ischemia versus findings of possible multiple sclerosis. Could not find any notes on follow-up for this. 12:15 also checking on the patient while she is sleeping in the unit. Patient is on room air respirations are regular patient then has pauses O2 saturations up from 92 down to about 86 then come right back up to 92.. Since the patient is stable at this point in time and sats are not dropping below 86 I have asked the staff not to awaken her and less she was to show signs of distress. But on awakening I have put in orders for a venous blood gas to see if she is acidotic or hypercapnic., And then would add oxygen as needed Hospital Course Hospital Course Hospital Course: Dilia Chester is a 64-year-old female who presented with nausea/vomiting/diarrhea, lightheadedness and 2 episodes of syncope and was mated for evaluation of the same. #Lightheadedness #Syncope #SOCORRO #Dehydration #Nausea/vomiting/diarrhea #Left carotid artery stenosis ? Presented with several day onset of nausea/vomiting/diarrhea, of which diarrhea seems to be an acute on chronic issue. ? Initial creatinine 3.6, baseline around 1.4. Significant dehydration seems to the culprit of lightheadedness and syncope. ? Clinically improved with IV fluid resuscitation. Also, no longer having nausea/vomiting/diarrhea. Orthostatics normal. ? Patient takes several medications that could be causing diarrhea, including metformin, Trulicity, lubiprostone. Strongly encourage patient to follow-up with PCP to discuss these medications. ? Patient also has also has greater than 70% left carotid artery stenosis, cardiology evaluated and recommend outpatient follow-up with [facility] to which patient had already been referred. ? Advised to continue oral rehydration, hold losartan due to SOCORRO. Continue aspirin, Plavix, statin. #CAD #Hypertension ? Continue aspirin, Plavix, statin. Hold losartan due to ongoing resolution of SOCORRO. #Type 2 diabetes ? Hemoglobin A1c 5.8%. Above goal for patient's age. Hold metformin in setting diarrhea. Advised to discuss Trulicity with PCP in the setting of diarrhea. #GERD ? Continue home PPI. #Restless leg syndrome ? Continue home ropinirole. Total time spent on discharge: 32 minutes on chart review, counseling, documentation, and direct care with patient. Exam Data for Last 24 hours Vital signs and Labs for Last 24 Hours: Temp Pulse Resp BP Pulse Ox O2 Del Method O2 Flow Rate 97.7 F 77 13 155/99 H 97 Room Air 1 09/18/24 12:09/18/24 12:09/18/24 12:09/18/24 12:09/18/24 12:09/18/24 12:09/18/24 08:01 Laboratory Results - last 24 hr 09/17/24 16:56: WBC 9.5, RBC 3.10 L, Hgb 9.2 L, Hct 27.6 L, MCV 89.0, MCH 29.7, MCHC 33.3, RDW 12.9, Plt Count 216, MPV 9.8, Neut % (Auto) 87.0 H, Lymph % (Auto) 5.4 L, Harrison % (Auto) 6.4, Eos % (Auto) 0.2, Baso % (Auto) 0.1, Neut # (Auto) 8.3 H, Lymph # (Auto) 0.5 L, Harrison # (Auto) 0.6, Eos # (Auto) 0.0, Baso # (Auto) 0.0, Total Counted 100, Neutrophils % (Manual) 93 H, Lymphocytes % (Manual) 6 L, Monocytes % (Manual) 1 L, Platelet Estimate Normal, RBC Morphology Normal, PT 11.1, INR 1.00, Sodium 134 L, Potassium 4.9, Chloride 93 L, Carbon Dioxide 27, Anion Gap 18.9 H, BUN 74 H, Creatinine 3.60 H, Estimated Creat Clear 16, Estimated GFR 13 L*, Est GFR ( Amer) 15 L*, Glucose 115 H, Calcium 9.3, Magnesium 1.4 L, Total Bilirubin 0.4, AST 40 H, ALT 26, Alkaline Phosphatase 60, Total Creatine Kinase 264 H, Troponin I < 0.01, Total Protein 7.5, Albumin 4.5, Globulin 3.0, Albumin/Globulin Ratio 1.5, Lipase 171, Free T4 1.25, HCV Ab NICHOLAS w/Rflx PCR Qn Negative, HIV Ag/Ab Combo Qual Negative 09/17/24 17:32: Urine Color Yellow, Urine Appearance Clear, Urine pH 5.5, Ur Specific [place] 1.010, Urine Protein Negative, Urine Glucose (UA) Negative, Urine Ketones Negative, Urine Blood Negative, Urine Nitrate Negative, Urine Bilirubin Negative, Urine Urobilinogen 0.2, Ur Leukocyte Esterase Negative, Urine RBC 3-5, Urine WBC 5-10, Ur Squamous Epith Cells 5-10, Urine Bacteria 1+ 09/17/24 20:17: Troponin I < 0.01 09/17/24 21:32: POC Glucose 181 H 09/18/24 05:01: WBC 7.7, RBC 3.00 L, Hgb 8.7 L, Hct 26.8 L, MCV 89.3, MCH 29.0, MCHC 32.5, RDW 13.1, Plt Count 220, MPV 9.7, Neut % (Auto) 74.3, Lymph % (Auto) 13.8, Harrison % (Auto) 9.0, Eos % (Auto) 2.2, Baso % (Auto) 0.1, Neut # (Auto) 5.7, Lymph # (Auto) 1.1, Harrison # (Auto) 0.7, Eos # (Auto) 0.2, Baso # (Auto) 0.0, VBG pH 7.35, VBG pCO2 50.5, VBG pO2 101.5 H, VBG HCO3 27.2, VBG Total CO2 28.7 H, VBG O2 Saturation 97.3 H, VBG Base Excess 1.6, VBG Lactic Acid 3.1 H, Sodium 134 L, Potassium 5.0, Chloride 95 L, Carbon Dioxide 30, Anion Gap 14.0, BUN 70 H, Creatinine 3.30 H, Estimated Creat Clear 18, Estimated GFR 14 L*, Est GFR ( Amer) 17 L*, Glucose 205 H D, Hemoglobin A1c 5.8, Lactate 2.3 H, Calcium 8.8, Magnesium 2.0 D, Total Bilirubin 0.3, AST 31, ALT 17 D, Alkaline Phosphatase 64, Total Protein 6.4, Albumin 3.9 D, Globulin 2.5, Albumin/Globulin Ratio 1.6 I & O for Last 24 hours: Intake & Output 09/15/24 09/16/24 09/17/24 09/18/24 23:59 23:59 23:59 23:59 Intake Total 1637 / 1637 Output Total 1200 / 1200 Balance 437 / 437 Weight 67.132 kg 67.041 kg Constitutional Constitutional: no acute distress *Routine HEENT Exam Head: Present normocephalic Eye: Present EOMI and PERRL ENT: Present mucous membranes moist *Routine Neck Exam Neck: Present supple; Absent lymphadenopathy *Routine Respiratory Exam Respiratory: Present CTA bilaterally *Routine Cardiovascular Exam Cardiovascular: Present RRR *Routine Abdominal Exam Abdominal: Present soft and normoactive bowel sounds; Absent tenderness *Routine Extremities Exam Extremities: Absent cyanosis, clubbing or edema *Routine Skin Exam Skin: Present warm; Absent rash *Routine Neurological Exam Neurological: Present alert and oriented X3 Results Data Completed and Pending Labs on day of discharge: Labs from last 24 hours 09/18/24 09/17/24 09/17/24 05:01 21:32 20:17 WBC 7.7 RBC 3.00 L Hgb 8.7 L Hct 26.8 L MCV 89.3 MCH 29.0 MCHC 32.5 RDW 13.1 Plt Count 220 MPV 9.7 Neut % (Auto) 74.3 Lymph % (Auto) 13.8 Harrison % (Auto) 9.0 Eos % (Auto) 2.2 Baso % (Auto) 0.1 Neut # (Auto) 5.7 Lymph # (Auto) 1.1 Harrison # (Auto) 0.7 Eos # (Auto) 0.2 Baso # (Auto) 0.0 Total Counted Neutrophils % (Manual) Lymphocytes % (Manual) Monocytes % (Manual) Platelet Estimate RBC Morphology PT INR VBG pH 7.35 VBG pCO2 50.5 VBG pO2 101.5 H VBG HCO3 27.2 VBG Total CO2 28.7 H VBG O2 Saturation 97.3 H VBG Base Excess 1.6 VBG Lactic Acid 3.1 H Sodium 134 L Potassium 5.0 Chloride 95 L Carbon Dioxide 30 Anion Gap 14.0 BUN 70 H Creatinine 3.30 H Estimated Creat Clear 18 Estimated GFR 14 L* Est GFR ( Amer) 17 L* Glucose 205 H D POC Glucose 181 H Hemoglobin A1c 5.8 Lactate 2.3 H Calcium 8.8 Magnesium 2.0 D Total Bilirubin 0.3 AST 31 ALT 17 D Alkaline Phosphatase 64 Total Creatine Kinase Troponin I < 0.01 Total Protein 6.4 Albumin 3.9 D Globulin 2.5 Albumin/Globulin Ratio 1.6 Lipase Free T4 Urine Color Urine Appearance Urine pH Ur Specific [place] Urine Protein Urine Glucose (UA) Urine Ketones Urine Blood Urine Nitrate Urine Bilirubin Urine Urobilinogen Ur Leukocyte Esterase Urine RBC Urine WBC Ur Squamous Epith Cells Urine Bacteria HCV Ab NICHOLAS w/Rflx PCR Qn HIV Ag/Ab Combo Qual 09/17/24 09/17/24 17:32 16:56 WBC 9.5 RBC 3.10 L Hgb 9.2 L Hct 27.6 L MCV 89.0 MCH 29.7 MCHC 33.3 RDW 12.9 Plt Count 216 MPV 9.8 Neut % (Auto) 87.0 H Lymph % (Auto) 5.4 L Harrison % (Auto) 6.4 Eos % (Auto) 0.2 Baso % (Auto) 0.1 Neut # (Auto) 8.3 H Lymph # (Auto) 0.5 L Harrison # (Auto) 0.6 Eos # (Auto) 0.0 Baso # (Auto) 0.0 Total Counted 100 Neutrophils % (Manual) 93 H Lymphocytes % (Manual) 6 L Monocytes % (Manual) 1 L Platelet Estimate Normal RBC Morphology Normal PT 11.1 INR 1.00 VBG pH VBG pCO2 VBG pO2 VBG HCO3 VBG Total CO2 VBG O2 Saturation VBG Base Excess VBG Lactic Acid Sodium 134 L Potassium 4.9 Chloride 93 L Carbon Dioxide 27 Anion Gap 18.9 H BUN 74 H Creatinine 3.60 H Estimated Creat Clear 16 Estimated GFR 13 L* Est GFR ( Amer) 15 L* Glucose 115 H POC Glucose Hemoglobin A1c Lactate Calcium 9.3 Magnesium 1.4 L Total Bilirubin 0.4 AST 40 H ALT 26 Alkaline Phosphatase 60 Total Creatine Kinase 264 H Troponin I < 0.01 Total Protein 7.5 Albumin 4.5 Globulin 3.0 Albumin/Globulin Ratio 1.5 Lipase 171 Free T4 1.25 Urine Color Yellow Urine Appearance Clear Urine pH 5.5 Ur Specific [place] 1.010 Urine Protein Negative Urine Glucose (UA) Negative Urine Ketones Negative Urine Blood Negative Urine Nitrate Negative Urine Bilirubin Negative Urine Urobilinogen 0.2 Ur Leukocyte Esterase Negative Urine RBC 3-5 Urine WBC 5-10 Ur Squamous Epith Cells 5-10 Urine Bacteria 1+ HCV Ab NICHOLAS w/Rflx PCR Qn Negative HIV Ag/Ab Combo Qual Negative DS: Diagnosis Discharge Diagnosis (1) Pulmonary emphysema: Status: Acute Code(s): J43.9 - Emphysema, unspecified (2) Acute respiratory failure with hypoxia: Status: Acute Code(s): J96.01 - Acute respiratory failure with hypoxia Meds Home Medications and Allergies Home Medications ?Medication ?Instructions ?Recorded ?Confirmed ?Type aspirin 81 mg tablet,delayed 81 mg PO DAILY 11/05/20 10/02/24 History release omeprazole 40 mg capsule,delayed 40 mg PO DAILY 11/05/20 10/02/24 History release albuterol sulfate 90 mcg/actuation 2 puff inhalation Q6HP PRN 07/02/21 10/02/24 History aerosol inhaler Shortness Of Breath Or Wheezing gabapentin 600 mg tablet 600 mg PO TID 07/08/22 10/02/24 History duloxetine 60 mg capsule,delayed 60 mg PO DAILY 06/07/24 10/02/24 History release losartan 100 mg tablet 100 mg PO DAILY #30 tabs 08/09/24 10/02/24 Rx atorvastatin 20 mg tablet 20 mg PO DAILY 09/18/24 10/02/24 History clopidogrel 75 mg tablet 75 mg PO DAILY 09/18/24 10/02/24 History magnesium oxide 400 mg PO DAILY 09/18/24 10/02/24 History ropinirole 1 mg tablet 1 mg PO HS 09/18/24 10/02/24 History carvedilol 25 mg tablet (Coreg) 25 mg PO BID #60 tabs 09/26/24 10/02/24 Rx umeclidinium 62.5 mcg-vilanterol 1 inh inhalation DAILY 10/02/24 10/02/24 History 25 mcg/actuation powdr for inhalation (Anoro Ellipta) New Prescriptions to Start Prescriptions: Allergies Allergy/AdvReac Type Severity Reaction Status Date / Time menthol (From LidoPatch) Allergy Unknown SKIN RASH Verified 10/02/24 10:56 lidocaine AdvReac Unknown SKIN RASH Verified 10/02/24 10:56 Discharge Plan Disposition Patient Disposition: Home, Self-Care Condition: Fair Follow up Plan Follow up with: Minda Miller MD [Physician, Pulmonology] - 10/02/24 11:00 am Fiorella Nichols APRN [Primary Care Provider, Medical] - 10/02/24 11:15 am Prescriptions/Medication Reconciliation: Continued gabapentin 600 mg tablet 600 mg PO TID duloxetine 60 mg capsule,delayed release(DR/EC) 60 mg PO DAILY Patient Comments: TAKE 1 CAPSULE BY MOUTH ONCE DAILY albuterol sulfate 90 mcg/actuation HFA aerosol inhaler 2 puff INHALATION Q6HP PRN (Reason: Shortness Of Breath Or Wheezing) Patient Comments: INHALE 2 PUFFS BY MOUTH EVERY 6 HOURS NEEDED FOR SHORTNESS OF BREATH omeprazole 40 MG capsule,delayed release(DR/EC) 40 mg PO DAILY aspirin 81 MG tablet,delayed release (DR/EC) 81 mg PO DAILY ropinirole 1 mg tablet 1 mg PO HS Patient Comments: TAKE 1/2 (ONE-HALF) TABLET BY MOUTH IN THE MORNING AND 1 IN THE EVENING atorvastatin 20 mg tablet 20 mg PO DAILY clopidogrel 75 mg tablet 75 mg PO DAILY magnesium oxide 400 mg magnesium tablet 400 mg PO DAILY Held losartan 100 mg tablet 100 mg PO DAILY Qty: 30 5RF Hold Instructions: Resume on 09/25/24. Hold this medication until you follow-up with your PCP as your kidney function slowly improves. Discontinued diphenhydramine HCl [Benadryl] 25 mg capsule 25 mg PO QID No Action umeclidinium-vilanterol [Anoro Ellipta] 62.5-25 mcg/actuation blister with device 1 inh inhalation DAILY carvedilol [Coreg] 25 mg tablet 25 mg PO BID Qty: 60 3RF Rx Instructions: must administer with a meal/food Problem Reconciliation Problems Reviewed?: Yes Patient Discharge Instructions Additional Instructions: Your on and off diarrhea may be multifactorial. The following medications can cause diarrhea: Lubiprostone, metformin, Trulicity, Benadryl. Please follow-up with your PCP to discuss these medications. Patient Instructions: DI for Kidney Failure, Acute Kidney Injury, What Can I Do About Kidney Disease?, How to Prevent Falls Print Language: Bengali Providers Primary Care Provider: Fiorella Nichols Admit Provider: Naveen Fisher Attending Provider: Naveen Fisher
--- NOTE | 2024-09-18 14:13 | EXP.CARD.CON ---
History of Present Illness History of Present Illness Consult date: 09/18/24 Requesting physician: Naveen Fisher Chief complaint: fall and AMS History of present illness: This is a 64-year-old white female with past medical history of carotid artery disease, coronary artery disease, PAD, diabetes mellitus and hyperlipidemia who presented to emergency department with complaints of 2 episodes of loss of consciousness. She reports the first episode occurred on Tuesday night during which the patient fell and has no recollection of the event except for perceiving that the furniture was moving. Patient reports a second episode on Tuesday which she describes as a spell where her eyes reportedly turned and it felt like things were moving. Prior to these events patient endorses that she had episodes of diarrhea and decreased appetite. She denies associated soa or chest pain. Upon presentation to emergency department EKG showed sinus rhythm at a rate of 77. Blood pressure was elevated greater than 150. Patient was maintaining an oxygen saturation greater than 97% on room air and it was afebrile. Labs upon presentation to ER as follow: WBC 7.7, hemoglobin 8.7, sodium 134, potassium 5, creatinine 3.6 trending down to 3.3 after fluids and serial troponins remain negative. A chest CTA was obtained which was negative for acute cardiopulmonary process. Head CT negative for acute intracranial process. Patient was started on gentle fluids and admitted for further evaluation. Of note patient has also been taking 25 mg of Benadryl 4 times daily and gabapentin 600 mg 3 times daily. This morning patient reports she feels a lot better. Denies any chest pain or shortness of breath. Creatinine is improving. [facility] Disclaimer: The information contained in this section may have been updated after the patient was seen, as this information can be updated by other users. Medical History (Updated 09/18/24 @ 14:24 by Jess Krishna APRN) Acute respiratory failure with hypoxia Pulmonary emphysema Viral syndrome Right carotid bruit Fatigue Exposure to COVID-19 virus Chest pain Hypomagnesemia Subcutaneous nodule of back Angina pectoris Abnormal stress test Dyspnea Dizziness Left carotid bruit Palpitations Diastolic dysfunction Aortic insufficiency Abdominal pain Celiac artery stenosis Surgical History (Updated 09/18/24 @ 00:40 by Jonathon Mejia APRN) History of right-sided carotid endarterectomy H/O carotid endarterectomy H/O: hysterectomy Hx of cholecystectomy History of colonoscopy Family History Other Family history of cancer Family history of diabetes mellitus type II Social History (Updated 09/17/24 @ 21:16 by BENJAMIN Gaitan) Smoking Status: Former smoker tobacco type: cigarettes packs per day: 1 second hand exposure: No alcohol intake: never substance use type: denies use current occupational status: disabled Travel in the last 8 weeks?: None household members: spouse and family housing: house current occupational exposures/hazards: No caffeine: Yes Review of Systems Review of Systems Review of systems:: pertinent systems reviewed and negative unless documented below Constitutional Constitutional: Reports frequent falls ENT Ears, Nose, Mouth, and Throat: Reports disequilibrium *Neurologic Neurologic: Reports as per HPI, Reports confusion, Reports disequilibrium, Reports frequent falls and Reports memory loss Psychiatric Psychiatric: Reports confusion and Reports memory loss Exam Data for Last 24 hours Vital signs and Labs for Last 24 Hours: Temp Pulse Resp BP Pulse Ox O2 Del Method O2 Flow Rate 97.7 F 77 13 155/99 H 97 Room Air 1 09/18/24 12:02 09/18/24 12:02 09/18/24 12:02 09/18/24 12:02 09/18/24 12:02 09/18/24 12:02 09/18/24 08:01 Laboratory Results - last 24 hr 09/17/24 16:56: WBC 9.5, RBC 3.10 L, Hgb 9.2 L, Hct 27.6 L, MCV 89.0, MCH 29.7, MCHC 33.3, RDW 12.9, Plt Count 216, MPV 9.8, Neut % (Auto) 87.0 H, Lymph % (Auto) 5.4 L, Story % (Auto) 6.4, Eos % (Auto) 0.2, Baso % (Auto) 0.1, Neut # (Auto) 8.3 H, Lymph # (Auto) 0.5 L, Story # (Auto) 0.6, Eos # (Auto) 0.0, Baso # (Auto) 0.0, Total Counted 100, Neutrophils % (Manual) 93 H, Lymphocytes % (Manual) 6 L, Monocytes % (Manual) 1 L, Platelet Estimate Normal, RBC Morphology Normal, PT 11.1, INR 1.00, Sodium 134 L, Potassium 4.9, Chloride 93 L, Carbon Dioxide 27, Anion Gap 18.9 H, BUN 74 H, Creatinine 3.60 H, Estimated Creat Clear 16, Estimated GFR 13 L*, Est GFR ( Amer) 15 L*, Glucose 115 H, Calcium 9.3, Magnesium 1.4 L, Total Bilirubin 0.4, AST 40 H, ALT 26, Alkaline Phosphatase 60, Total Creatine Kinase 264 H, Troponin I < 0.01, Total Protein 7.5, Albumin 4.5, Globulin 3.0, Albumin/Globulin Ratio 1.5, Lipase 171, Free T4 1.25, HCV Ab NICHOLAS w/Rflx PCR Qn Negative, HIV Ag/Ab Combo Qual Negative 09/17/24 17:32: Urine Color Yellow, Urine Appearance Clear, Urine pH 5.5, Ur Specific [place] 1.010, Urine Protein Negative, Urine Glucose (UA) Negative, Urine Ketones Negative, Urine Blood Negative, Urine Nitrate Negative, Urine Bilirubin Negative, Urine Urobilinogen 0.2, Ur Leukocyte Esterase Negative, Urine RBC 3-5, Urine WBC 5-10, Ur Squamous Epith Cells 5-10, Urine Bacteria 1+ 09/17/24 20:17: Troponin I < 0.01 09/17/24 21:32: POC Glucose 181 H 09/18/24 05:01: WBC 7.7, RBC 3.00 L, Hgb 8.7 L, Hct 26.8 L, MCV 89.3, MCH 29.0, MCHC 32.5, RDW 13.1, Plt Count 220, MPV 9.7, Neut % (Auto) 74.3, Lymph % (Auto) 13.8, Story % (Auto) 9.0, Eos % (Auto) 2.2, Baso % (Auto) 0.1, Neut # (Auto) 5.7, Lymph # (Auto) 1.1, Story # (Auto) 0.7, Eos # (Auto) 0.2, Baso # (Auto) 0.0, VBG pH 7.35, VBG pCO2 50.5, VBG pO2 101.5 H, VBG HCO3 27.2, VBG Total CO2 28.7 H, VBG O2 Saturation 97.3 H, VBG Base Excess 1.6, VBG Lactic Acid 3.1 H, Sodium 134 L, Potassium 5.0, Chloride 95 L, Carbon Dioxide 30, Anion Gap 14.0, BUN 70 H, Creatinine 3.30 H, Estimated Creat Clear 18, Estimated GFR 14 L*, Est GFR ( Amer) 17 L*, Glucose 205 H D, Hemoglobin A1c 5.8, Lactate 2.3 H, Calcium 8.8, Magnesium 2.0 D, Total Bilirubin 0.3, AST 31, ALT 17 D, Alkaline Phosphatase 64, Total Protein 6.4, Albumin 3.9 D, Globulin 2.5, Albumin/Globulin Ratio 1.6 I & O for Last 24 hours: Intake & Output 09/15/24 09/16/24 09/17/24 09/18/24 23:59 23:59 23:59 23:59 Intake Total 1637 / 1637 Output Total 1200 / 1200 Balance 437 / 437 Weight 148 lb 147 lb 12.8 oz Constitutional Constitutional: no acute distress *Routine Respiratory Exam Respiratory: Present CTA bilaterally and symmetric chest movement *Routine Cardiovascular Exam Cardiovascular: Present RRR, Normal S1 and Normal S2 *Routine Abdominal Exam Abdominal: Present soft and normoactive bowel sounds; Absent tenderness *Routine Extremities Exam Extremities: Present full ROM and normal capillary refill; Absent edema *Routine Skin Exam Skin: Present intact, dry and warm Detailed Neck Exam: Thyroids Thyroid: Absent bruit Meds Home Medications and Allergies Home Medications ?Medication ?Instructions ?Recorded ?Confirmed ?Type aspirin 81 mg tablet,delayed 81 mg PO DAILY 11/05/20 09/17/24 History release omeprazole 40 mg capsule,delayed 40 mg PO DAILY 11/05/20 09/17/24 History release albuterol sulfate 90 mcg/actuation 2 puff inhalation Q6HP PRN 07/02/21 09/18/24 History aerosol inhaler Shortness Of Breath Or Wheezing fluticasone fur. 100 mcg-umeclid 1 inh inhalation DAILY 07/08/22 09/17/24 History 62.5 mcg-vilant 25 mcg inhalat.powder (Trelegy Ellipta) gabapentin 600 mg tablet 600 mg PO TID 07/08/22 09/18/24 History carvedilol 12.5 mg tablet 12.5 mg PO BID 06/07/24 09/17/24 History dulaglutide 1.5 mg/0.5 mL 1.5 mg SQ WEEKLY 06/07/24 09/18/24 History subcutaneous pen injector (Trulicity) duloxetine 60 mg capsule,delayed 60 mg PO DAILY 06/07/24 09/17/24 History release lubiprostone 24 mcg capsule 24 mcg PO BID 07/09/24 09/18/24 History Held on 09/18/24. Instructions: Resume on 10/02/24. This medication can cause diarrhea. Please hold this medication if you are having diarrhea and follow-up with your prescriber. losartan 100 mg tablet 100 mg PO DAILY #30 tabs 08/09/24 09/17/24 Rx Held on 09/18/24. Instructions: Resume on 09/25/24. Hold this medication until you follow-up with your PCP as your kidney function slowly improves. atorvastatin 20 mg tablet 20 mg PO DAILY 09/18/24 09/18/24 History clopidogrel 75 mg tablet 75 mg PO DAILY 09/18/24 09/18/24 History diphenhydramine HCl 25 mg capsule 25 mg PO DAILY 30 days #0 caps 09/18/24 09/18/24 Rx (Benadryl) magnesium oxide 400 mg PO DAILY 09/18/24 09/18/24 History metformin 1,000 mg tablet 1,000 mg PO BID 09/18/24 09/18/24 History Held on 09/18/24. Instructions: Resume on 10/02/24. Hold this medication if you are having diarrhea. methylprednisolone 4 mg tablets in 4 mg PO DIRECTED 09/18/24 09/18/24 History a dose pack ropinirole 1 mg tablet 0.5 mg PO DAILY 09/18/24 09/18/24 History ropinirole 1 mg tablet 1 mg PO HS 09/18/24 09/18/24 History New Prescriptions to Start Prescriptions: Allergies Allergy/AdvReac Type Severity Reaction Status Date / Time menthol (From LidoPatch) Allergy Unknown SKIN RASH Verified 08/09/24 13:03 lidocaine AdvReac Unknown SKIN RASH Verified 08/09/24 13:03 Assessment and Plan *Assessment and plan (1) Falls: Status: Acute Category: Medical Code(s): R29.6 - Repeated falls (2) CAD (coronary artery disease): Status: Chronic Qualifiers: Associated angina: without angina Coronary Disease-Associated Artery/Lesion type: [place] artery [place] vs. transplanted heart: [place] heart Qualified Code(s): I25.10 - Atherosclerotic heart disease of [place] coronary artery without angina pectoris Category: Medical Code(s): I25.10 - Atherosclerotic heart disease of [place] coronary artery without angina pectoris (3) Carotid artery stenosis: Status: Chronic Qualifiers: Laterality: bilateral Qualified Code(s): I65.23 - Occlusion and stenosis of bilateral carotid arteries Category: Medical Code(s): I65.29 - Occlusion and stenosis of unspecified carotid artery Plan History of falls Acute kidney injury Creatinine on admission was 3.6 trending down to 3.3. Baseline in April was 1.4. Patient does report she has had episodes of diarrhea which may be contributing. Creatinine seems to be improving with fluids. Peripheral artery disease History of carotid artery disease Carotid ultrasound May 2024: Right carotid less than 50% stenosis with moderate plaque in the distal common carotid artery. Greater than 70% stenosis of the left carotid artery. Patient has been referred to [facility] for vascular previously on an outpatient basis. Appointment pending. Head CT shows no acute intracranial process Recommend MRA neck and head Peripheral artery disease noted on catheterization April 2023- moderate calcifications with mild stenosis in the infrarenal abdominal aorta, small caliber right SFA and right popliteal artery with moderate to severe disease at Conor's canal accompanied by slow three-vessel runoff to the ankle, small caliber left SFA with moderate to severe stenosis at Conor's canal and distal to Conor's canal with single-vessel runoff to the left foot. Recommend medical management for vascular disease due to high likelihood for early restenosis. Patient is maintained on aspirin, plavix and statin. Cannot afford low-dose Xarelto. History of coronary artery disease Medical management of coronary artery disease April 2023 Serial troponins negative EKG without acute ischemic changes Continue aspirin and statin CV summary 09/18/2024: Creatinine is improving with fluids. Patient reports she is overall feeling better and would like to go home. Recommend that she follows up with [facility] as previously advised. She can follow-up in cardiology clinic in 1 week for reevaluation. Continue aspirin, Plavix, statin. 2-week event monitor at discharge. Patient advised no driving or operating heavy machinery until cleared by cardiology.
[2024-09-19 00:34] LABS: POC Glucose,Bedside 111 (70-110)
--- NOTE | 2024-09-20 11:04 | SW/DCPLANNER ---
Phoned patient x2. Left message with name and call back number. Kashif Murray
== END 2024-09-18 15:00 | disposition home or self-care (01) ==
LOC: ER 16:27 → 2ND 20:00 → ICU 20:21 → 2ND 09-21 11:26
PROVIDERS: Nurse Practitioner Family; Admitting Provider Internal Medicine Adolescent Medicine; Emergency Provider Emergency Medicine; PCP Nurse Practitioner Family; Visit Provider Internal Medicine Adolescent Medicine
DX: N17.9 Acute kidney failure, unspecified (principal); R29.6 Repeated falls; E83.42 Hypomagnesemia; J43.9 Emphysema, unspecified; G47.34 Idiopathic sleep related nonobstructive alveolar hypoventilation; M79.605 Pain in left leg; I25.10 Atherosclerotic heart disease of native coronary artery without angina pectoris; I65.29 Occlusion and stenosis of unspecified carotid artery; K21.9 Gastro-esophageal reflux disease without esophagitis; G25.81 Restless legs syndrome; E11.51 Type 2 diabetes mellitus with diabetic peripheral angiopathy without gangrene; N18.9 Chronic kidney disease, unspecified; E11.22 Type 2 diabetes mellitus with diabetic chronic kidney disease; D64.9 Anemia, unspecified; J96.01 Acute respiratory failure with hypoxia; E78.5 Hyperlipidemia, unspecified; Z87.891 Personal history of nicotine dependence; Z79.899 Other long term (current) drug therapy; Z79.84 Long term (current) use of oral hypoglycemic drugs; Z79.82 Long term (current) use of aspirin; Z79.02 Long term (current) use of antithrombotics/antiplatelets; Z88.4 Allergy status to anesthetic agent; Z88.8 Allergy status to other drugs, medicaments and biological substances; S30.1XXA Contusion of abdominal wall, initial encounter; S30.0XXA Contusion of lower back and pelvis, initial encounter; S70.01XA Contusion of right hip, initial encounter; W19.XXXA Unspecified fall, initial encounter
CPT/HCPCS: 36415; 70450; 71250; 74176; 80053; 81001; 82550; 82803; 82962; 83036; 83605; 83690; 83735; 84439; 84484; 85007; 85025; 85027; 85610; 86803; 87389; 93005; 93306; 94640; 96361; 96365; 97162; 99285; G0378; J3475; J7120

== ENCOUNTER 2024-09-26 10:46 | Outpatient (CLI) | payer MEDICARE, SELFPAY ==
--- OUTSIDE RECORDS SUMMARY | 2024-09-26 10:53 | XMS_ITS | Encounter Summary ---
Author Organization Healthcare Address [address] [place] [address] Care Team Providers Care Master Chef Name Role Phone Tin Cutler MD Primary Care Provider [phone] Encounter Details Date Type Department Care Team (Late st Contact Info) Description 06/15/2024 Orders Only External Location [address] [place] [address] Jess Krishna, BUSINESS UNIT LEADER [address] [facility] [address] [place] [address] Social History Tobacco Use Types Packs/Day Years Used Date Smoking Tobacco: Former Alcohol Use Standard Drinks/Week Comments No 0 (1 standard drink = 0.6 oz pur e alcohol) Comments Unknown Sex and Gender Information Value Date Recorded Sex Assigned at Not on file Legal Sex Female 7:15 PM EDT Gender Identity Not on file Sexual Orientation Not on file documented as of this encounter Plan of Treatment Not on file documented as of this encounter Procedures Procedure Name Priority Date/Time Associated Diagnosis Comments US OUTSIDE IMAGES 06/15/2024 11:08 AM EST documented in this encounter Results * US OUTSIDE IMAGES (06/15/2024 11:08 AM EST) Anatomical Region Laterality Modality Ultrasound 06/15/2024 11:0 8 AM EST us Jess Krishna BUSINESS UNIT LEADER IMG US PROCEDURES Jie l Result documented in this encounter Visit Diagnoses Not on filedocumented in this encounter Care Teams Master Chef Relationship Specialty Start Date End Date Tin Cutler MD [address] [place] [address] PCP - General 08/29/20 documented as of this encounter
--- OUTSIDE RECORDS SUMMARY | 2024-09-26 10:53 | XMS_ITS | Clinical Summary ---
Author Organization Healthcare Address [address] [id number] Care Team Providers Care Immigration Case Worker Name Role Phone Tin Cutler MD Primary Care Provider Encounters Date Type Department Care Team Description 07/10/2024 Telephone [facility] [address] [facility] [facility] 5th [address] [place] [address] Jennifer Lund MD 07/09/2024 Orders Only [facility] [address] [place] [address] Vannessa Chan RN Bilateral carotid artery stenosis (Primary Dx) from Last 3 Months Family History Medical History Relation Name Comments Conversions - Other Brother 1 CAD (cor onary artery disease), [place] coronary artery Diabetes Brother 2 Thyroid cancer Brother 3 Colon cancer Father Conversions - Other Father CAD (cor onary artery disease), [place] coronary artery Diabetes Father Stroke Father Conversions - Other Mother Oat cell carcinoma Coronary artery disease Mother Diabetes Mother Hodgkin's lymphoma Sister 1 Heart attack Sister 2 Relation Name Status Comments Brother 1 Brother 2 Brother 3 Father Mother Sister 1 Sister 2 Social History Tobacco Use Types Packs/Day Years Used Date Smoking Tobacco: Former Alcohol Use Standard Drinks/Week Comments No 0 (1 standard drink = 0.6 oz pur e alcohol) Comments Unknown Sex and Gender Information Value Date Recorded Sex Assigned at Not on file Legal Sex Female 7:15 PM EDT Gender Identity Not on file Sexual Orientation Not on file Last Filed Vital Signs Vital Sign Reading Time Taken Comments Blood Pressure 122/60 09/28/2018 11:14 AM EDT Pulse 87 09/28/2018 11:14 AM EDT Temperature - - Respiratory Rate - - Oxygen Saturation - - Inhaled Oxygen Concentration - - Weight 61.6 kg (135 lb 12.9 oz) 019 11:14 AM EDT Height 160 cm (5' 3 ) 09/28/2018 11:14 AM EDT Body Mass Index 24.06 09/28/2018 11:14 AM EDT Plan of Treatment Health Maintenance Due Date Last Done Comments [facility]-Depression Screening 1961 [facility]-Infant/Child/Adol SDOH Screenings 1961 [facility]- SDOH Screenings 1979 [facility]-Adult SDOH Screenings 1979 [facility]-DTaP,Tdap,and Td Vaccines (1 - Tdap) 01/22/1980 [facility]-Pap Smear 1982 [facility]-Cervical Cancer Screening 1991 [facility]-HPV/Cotest 1991 CT Colonography 2006 Colonoscopy 2006 FIT-DNA 2006 FIT 2006 FOBT 2006 Sigmoidoscopy 2006 [facility]-Colorectal Cancer Screening 2006 [facility]-Pneumococcal Vaccine: 50+ Years (1 of 1 - PCV) 2011 [facility]-Zoster Vaccines (1 of 2) 2011 [id number] Vaccine ( - season) 2023 04/27/2021, 06/26/2020 [facility]-Influenza Vaccine (Season Ended) 2024 02/14/2023, 02/20/2019, 01/24/2018, Additional history exists [facility]-RSV Vaccine: 60+ Years or (1 - 1-dose 75+ series) 01/22/2036 HPV Vaccines Aged Out No longer eligi ble based on patient's age to complete this topic [facility]-HIB Vaccines Aged Out No longer e ligible based on patient's age to complete this topic [facility]-Hepatitis A Vaccines Aged Out No longer eligible based on patient's age to complete this topic [facility]-IPV Vaccines Aged Out No longer e ligible based on patient's age to complete this topic [facility]-Rotavirus Vaccines Aged Out No lo nger eligible based on patient's age to complete this topic Insurance Dwayne BREWSTER [place], [place] [id number] [facility] Care Teams Immigration Case Worker Relationship Specialty Start Date End Date Tin Cutler MD [address] [place] [address] PCP - General 08/29/20
[2024-09-26 11:07] LABS: Basophils # 0.1 K/mm3 (0-0.2); Basophils % 0.7 % (0.1-2.0); Eosinophils # 0.2 Kmm3 (0.0-0.4); Eosinophils % 1.7 % (0.1-12.0); Hematocrit 30.5 % (37.0-47.0); Immature Granulocytes # 0.05 10^3uL; Immature Granulocytes % 0.6 %; Lymphocytes # 0.9 K/mm3 (0.7-4.5); Mean Corpuscular HGB Conc 32.8 g/dL (31.8-35.4); Mean Corpuscular Hemoglobin 29.3 pg (27.0-31.2); Mean Corpuscular Volume 89.4 fl (81-99); Mean Platelet Volume 8.9 fl (7.4-10.4); Monocytes # 0.6 K/mm3 (0.1-1.0); Monocytes % 6.4 % (1.7-9.3); Neutrophils # 7.3 K/mm3 (1.8-7.8); Neutrophils % 80.6 % (37.0-80.0); Nucleated Red Blood Cells # 0 10^3/uL; Nucleated Red Blood Cells % 0 %; Platelet Count 269 K/mm3 (142-424); Red Blood Count 3.41 M/mm3 (4.20-5.40); Red Cell Distribution Width 12.3 % (11.5-17.5); Red Cell Distribution Width-SD 39.9 fL
[2024-09-26 11:57] LABS: Albumin Level 4.8 g/dl (3.5-5.0); Chloride 90 mmol/L (98-107); Potassium 4.3 mmoL/L (3.5-5.1); Sodium 133 mmol/L (136-145)
[2024-09-26 11:59] LABS: Bilirubin,Unconjugated 0.1 mg/dL (0.0-1.1); Blood Urea Nitrogen 58 mg/dl (7-17); Estimated Glomerular Filt Rate 16 ml/min (>60); GFR (African American) 20 ML/MIN (>60)
[2024-09-26 12:00] LABS: Alanine Aminotransferase 18 U/L (12-78); Alkaline Phosphatase 80 U/L (38-126); Anion Gap 14.3 mEq/L (5-15); Aspartate Amino Transferase 33 U/L (14-36); Bilirubin,Direct 0.2 mg/dl (0.0-0.4); Bilirubin,Indirect 0.2 mg/dL (0.0-0.9); Bilirubin,Total 0.4 mg/dl (0.2-1.3); Calcium 9.5 mg/dl (8.4-10.2); Carbon Dioxide 33 mmol/L (22.0-30.0); Chol/HDL Ratio 3.4 (1-3.5); Cholesterol 211 mg/dl (140-200); Glucose 143 mg/dl (74-100); HDL Cholesterol 62 mg/dl (40-60); Magnesium 2.9 mg/dl (1.6-2.3); Total Protein,Serum 7.8 g/dl (6.3-8.2); Triglycerides 179 mg/dl (30-150); VLDL Cholesterol 36 mg/dL (0-40)
[2024-09-26 12:11] LABS: Direct LDL Cholesterol 80.71 mg/dL (100-129)
[2024-09-26 12:17] LABS: Free T4 (Free Thyroxine) 1.32 ng/dl (0.78-2.19)
[2024-09-26 12:30] LABS: Thyroid Stimulating Hormone 4.47 uIU/mL (0.465-4.68)
== END 2024-09-26 23:59 | disposition home or self-care (01) ==
LOC: LAB 10:47
PROVIDERS: PCP Internal Medicine Adolescent Medicine; Visit Provider Nurse Practitioner
DX: I25.10 Atherosclerotic heart disease of native coronary artery without angina pectoris (principal); I10 Essential (primary) hypertension
CPT/HCPCS: 36415; 80048; 80061; 80076; 83735; 84439; 84443; 85025

== ENCOUNTER 2024-10-12 08:41 | Day surgery (SDC) | payer MEDICARE, SELFPAY ==
--- NOTE | 2024-10-12 08:51 | EXP.PM.HP ---
History of Present Illness *Admission Date: 10/12/24 *Reason for visit:: Intrathecal refill; DDD *History of present illness: Same [facility] Disclaimer: The information contained in this section may have been updated after the patient was seen, as this information can be updated by other users. Medical History (Updated 10/06/24 @ 00:00 by Jessica Blount) History of smoking 30 or more pack years Acute respiratory failure with hypoxia Pulmonary emphysema Viral syndrome Right carotid bruit Fatigue Exposure to COVID-19 virus Chest pain Hypomagnesemia Subcutaneous nodule of back Angina pectoris Abnormal stress test Dyspnea Dizziness Left carotid bruit Palpitations Diastolic dysfunction Aortic insufficiency Abdominal pain Celiac artery stenosis Surgical History History of right-sided carotid endarterectomy H/O carotid endarterectomy H/O: hysterectomy Hx of cholecystectomy History of colonoscopy Family History Other Family history of cancer Family history of diabetes mellitus type II Social History Smoking Status: Former smoker tobacco type: cigarettes packs per day: 1 second hand exposure: No alcohol intake: never substance use type: denies use current occupational status: disabled Travel in the last 8 weeks?: None household members: spouse and family housing: house current occupational exposures/hazards: No caffeine: Yes Have you lived/traveled outside US in past 30 days?: No Contact w/someone who lives/traveled outside US past 30 days?: No Exposure to someone with infectious disease in past 14 days?: No Do you have a fever (greater than 100.4 F or 38 C)?: No Have you tested positive for COVID-19?: No Exposed to someone with COVID-19 in past 14 days?: No Do you have a sore throat?: No Do you have a cough?: No Do you have any weakness?: No Do you have any diarrhea?: No Are you experiencing any unusual bleeding?: No Do you have any muscle aches/pain?: No Do you have any abdominal pain?: No Are you experiencing loss of taste or smell?: No Other Medical History Have you received the Flu Vaccine for this season: No Have you received the Pneumonia Vaccine: No Review of Systems Review of Systems Review of systems:: pertinent systems reviewed and negative unless documented below Review of systems (narrative): Review of Systems: General: No recent weight changes, no fever, no sleep disturbances Respiratory: No cough, no shortness of air, no recurring pulmonary infections Cardiovascular/peripheral vascular: No chest pain, no palpitations, no edema, no shortness of breath Gastrointestinal: No new onset incontinence, normal bowel movements reported Genitourinary: No new onset incontinence Musculoskeletal: Chronic back pain Psychiatric: [Normal mood/affect] Neurological: [Denies weakness in extremities], [denies balance issues] Meds Home Medications and Allergies Home Medications ?Medication ?Instructions ?Recorded ?Confirmed ?Type aspirin 81 mg tablet,delayed 81 mg PO DAILY 11/05/20 10/02/24 History release omeprazole 40 mg capsule,delayed 40 mg PO DAILY 11/05/20 10/02/24 History release albuterol sulfate 90 mcg/actuation 2 puff inhalation Q6HP PRN 07/02/21 10/02/24 History aerosol inhaler Shortness Of Breath Or Wheezing gabapentin 600 mg tablet 600 mg PO TID 07/08/22 10/02/24 History duloxetine 60 mg capsule,delayed 60 mg PO DAILY 06/07/24 10/02/24 History release losartan 100 mg tablet 100 mg PO DAILY #30 tabs 08/09/24 10/02/24 Rx atorvastatin 20 mg tablet 20 mg PO DAILY 09/18/24 10/02/24 History clopidogrel 75 mg tablet 75 mg PO DAILY 09/18/24 10/02/24 History magnesium oxide 400 mg PO DAILY 09/18/24 10/02/24 History ropinirole 1 mg tablet 1 mg PO HS 09/18/24 10/02/24 History carvedilol 25 mg tablet (Coreg) 25 mg PO BID #60 tabs 09/26/24 10/02/24 Rx umeclidinium 62.5 mcg-vilanterol 1 inh inhalation DAILY 10/02/24 10/02/24 History 25 mcg/actuation powdr for inhalation (Anoro Ellipta) umeclidinium 62.5 mcg-vilanterol 1 inh inhalation DAILY 90 days 10/04/24 Rx 25 mcg/actuation powdr for #180 ea inhalation (Anoro Ellipta) New Prescriptions to Start Prescriptions: Allergies Allergy/AdvReac Type Severity Reaction Status Date / Time menthol (From LidoPatch) Allergy Unknown SKIN RASH Verified 10/02/24 10:56 lidocaine AdvReac Unknown SKIN RASH Verified 10/02/24 10:56 Exam Constitutional Constitutional: no acute distress *Routine HEENT Exam Head: Present normocephalic and atraumatic Eye: Present PERRL ENT: Present mucous membranes moist *Routine Neck Exam Neck: Present supple *Routine Respiratory Exam Respiratory: Present CTA bilaterally *Routine Cardiovascular Exam Cardiovascular: Present RRR *Routine Abdominal Exam Abdominal: Present soft *Routine Rectal Exam Rectal:: deferred *Routine Genitalia Exam Genitalia:: deferred Routine Back/Spine/Pelvis Exam Back/Spine: Present pain with flexion *Routine Skin Exam Skin: Present intact and warm *Routine Neurological Exam Neurological: Present alert and oriented X3 Routine Psychiatric Exam Psychiatric: Present normal affect and normal thought process Assessment and Plan *Assessment and plan (1) Degenerative joint disease (DJD) of lumbar spine: Status: Chronic Category: Medical Code(s): M47.816 - Spondylosis without myelopathy or radiculopathy, lumbar region (2) Lumbar radiculopathy: Status: Chronic Category: Medical Code(s): M54.16 - Radiculopathy, lumbar region Plan Patient has been instructed to contact the clinic with any concerns before the next appointment. Dr. Velasquez has reviewed this note and agrees with this plan of care. This note was dictated using voice recognition software and make contain errors or omissions. All injections are used with Lidocaine, Bupivacaine and dexamethasone. Occasionally urine drug screen is needed to verify patient's compliance with our office pain contract. This is ordered based off specific treatments related to chronic pain with the potential to abuse certain medications.
--- NOTE | 2024-10-12 08:55 | EXP.PAIN.PRO ---
Procedure Date: 10/12/24 Time: 09:04 Anesthesiologist:: Blanca Blood APRN Complications:: None Pre-procedure Diagnosis:: Degenerative disc disease of lumbar spine with lumbar radiculopathy symptoms, chronic pain syndrome Post-procedure Diagnosis:: Same Indications for Procedure:: Patient is a pleasant 64-year-old female who presents today for intrathecal refill and reprogram. Today she rates her pain a 5 out of 10. She denies any new falls or injuries. Patient does state that she would be good for a little bit of an increase. Patient is currently managed with morphine 5 mg/mL with a daily dose of 1.012 mg/day. She denies any side effects. Her Cory has been reviewed and is appropriate. Physical Exam: General: Alert and oriented x3, no acute distress, pleasant and cooperative Lungs: Respirations even and unlabored, symmetrical chest expansion Eyes: PERRL Musculoskeletal: Flexion and extension of lumbar [spine] somewhat guarded secondary to pain, [antalgic gait noted] Neurological: Speech clear, no gross sensory deficit Procedure Details:: Informed consent was obtained and the risk and benefits of the procedure were explained to the patient. The patient had noninvasive monitoring placed including noninvasive blood pressure cuff and pulse oximeter. Patient's pump was interrogated. The area over the pump was cleansed with chlorhexidine as a cleansing solution. In sterile fashion the pump was accessed with a 22-gauge needle. Approximately 9 mls of the pump solution was removed and discarded appropriately. The pump was then refilled with 20 mL's of morphine 5 mg/mL. The needle was withdrawn and a bandage was placed over the puncture site. The infusion rate was reprogrammed and increased to morphine 1.1132 mg/day. The patient tolerated well with no complication. Plan and Disposition:: Patient tolerated the procedure well with no complications and was discharged neurologically intact. Patient will return to clinic on or before their next intrathecal refill date. We will see the patient back in the clinic at the next intrathecal refill. Patient has been instructed to contact the clinic with any concerns before the next appointment. Dr. Velasquez has reviewed this note and agrees with this plan of care. This note was dictated using voice recognition software and make contain errors or omissions. -- It Is medically necessary for this patient to continue to have their intrathecal pump refilled at regular intervals. This patient had an intrathecal pain pump implanted after meeting criteria of chronic intractable pain for greater than 3 months and failing conservative treatments. Patient has committed and been compliant to the treatment plan and all planned follow up care. Since implantation of the intrathecal pain pump, the patient has had decreased pain and been more functional. Oral medications have been reduced including intake of oral opioids. Patient continues to do well with intrathecal therapy with decrease in pain symptoms and increase in functional status. Stopping intrathecal medications can lead to life threatening withdrawal, seizures, cardiac arrest, severe pain, and possible . Pumps that are not refilled at regular intervals can be damages and cause and need for replacement. We continually titrate dose and concentration to optimize pain relief and function. We are limited in concentration for certain drugs to safely deliver medications through the pump and stay within the recommendations from the Polyanalges[employer] Consensus Committee Guidelines. Depending on dose and concentration these pumps may need to be refilled sooner than 3 months as we titrate. A UDS is needed to verify patient's compliance with our office pain contract. This is ordered based off specific treatments related to chronic pain with the potential to abuse certain medications.
[2024-10-12 08:56] VITALS: BP 129/33; PULSE 71; RESP 16; O2SAT 98; BMI 25.3
[2024-10-12 08:59] VITALS: BP 153/100; PULSE 68; RESP 18; O2SAT 95
[2024-10-12 09:20] VITALS: BP 130/45; PULSE 60; RESP 18; O2SAT 95
== END 2024-10-12 09:20 | disposition home or self-care (01) ==
PROVIDERS: PCP Nurse Practitioner Family; Visit Provider Nurse Practitioner Family
DX: Z45.1 Encounter for adjustment and management of infusion pump (principal); M51.16 Intervertebral disc disorders with radiculopathy, lumbar region; G89.4 Chronic pain syndrome; I20.9 Angina pectoris, unspecified; E83.42 Hypomagnesemia; J43.9 Emphysema, unspecified; Z88.8 Allergy status to other drugs, medicaments and biological substances; Z79.899 Other long term (current) drug therapy
CPT/HCPCS: 95991

== ENCOUNTER 2024-10-15 19:06 | Inpatient (IN) | payer MEDICARE, SELFPAY ==
[2024-10-15] VITALS (14 sets, daily range): BP systolic 126–176; BP diastolic 43–60; PULSE 60–69; RESP 12–16; TEMP 36.4–36.6; O2SAT 95–99; BMI 25.3; BMI 26.6
--- NOTE | 2024-10-15 19:13 | ECG_ITS ---
APPROVED REPORT Exam: Resting ECG HR:57 bpm ECG Measurements Heart Rate 57 AXES SD 168 P 65 QRSd 85 QRS 3 QT 422 T 95 QTc 416 Conclusion SINUS BRADYCARDIA WITH MARKED SINUS ARRHYTHMIA NONSPECIFIC ST & T-WAVE ABNORMALITY ABNORMAL ECG Baseline wandering in aVL and aVF Electronically signed by : VICKI ROCHE, 10/19/2024 14:07:52
--- OUTSIDE RECORDS SUMMARY | 2024-10-15 19:15 | XMS_ITS | Clinical Summary ---
Author Organization Healthcare Address [address] [place] [address] Care Team Providers Care System Specialist Name Role Phone Tin Cutler MD Primary Care Provider Encounters Date Type Department Care Team Description 10/12/2024 Telephone [facility] Nephrology, Bone & Mineral Metabolism [address] [facility], [address] [place] [address] Alize De Anda 10/09/2024 Orders Only [facility] [address] [place] [address] [place] [address] Solange Brothers SOCORRO (acute kidney injury) (CMS/HCC) (Primary Dx); Vitamin D insufficiency 10/03/2024 Community Orders [facility] [address] [place] [address] Fiorella Nichols APRN Acute renal failure, unspecified acute renal failure type (CMS/HCC) (Primary Dx) from Last 3 Months Family History Medical History Relation Name Comments Conversions - Other Brother 1 CAD (cor onary artery disease), false pass coronary artery Diabetes Brother 2 Thyroid cancer Brother 3 Colon cancer Father Conversions - Other Father CAD (cor onary artery disease), false pass coronary artery Diabetes Father Stroke Father Conversions [...] 09/28/2018 11:14 AM EDT Plan of Treatment Upcoming Encounters Date Type Department Care Team (Late st Contact Info) Description 10/24/2024 4:00 PM EDT Office Visit [facility] Nephrology, Bone & Mineral Metabolism [address] [facility], [address] [place] [address] Eagle Egan MD [address] [place] [address] Health Maintenance Due Date Last Done Comments [facility]-Depression Screening 1961 [facility]-HIV Screening 1961 [facility]-Hepatitis C Screening 1961 [facility]-Medicare Annual Wellness (AWV) 1961 [facility]-/Child/Adol SDOH Screenings 1961 [facility]- SDOH Screenings 1979 [facility]-Adult SDOH Screenings 1979 [facility]-DTaP,Tdap,and Td Vaccines (1 - Tdap) 01/22/1980 [facility]-Pap Smear 1982 [facility]-Cervical Cancer Screening 1991 [facility]-HPV/Cotest 1991 CT Colonography 2006 Colonoscopy 2006 FIT-DNA 2006 FIT 2006 FOBT 2006 Sigmoidoscopy 2006 [facility]-Colorectal Cancer Screening 2006 [facility]-Breast Cancer Screening 2011 [facility]-Pneumococcal Vaccine: 50+ Years (1 of 1 - PCV) 2011 [facility]-Zoster Vaccines (1 of 2) 2011 HFU-RBXOG-16 Vaccine (3 - season) 2023 04/27/2021, 06/26/2020 [facility]-Influenza Vaccine [...] patient's age to complete this topic Insurance [place] [id number] [facility] MEDICARE Care Teams System Specialist Relationship Specialty Start Date End Date Tin Cutler MD [address] [place] [address] PCP - General 08/29/20
--- OUTSIDE RECORDS SUMMARY | 2024-10-15 19:15 | XMS_ITS | Encounter Summary ---
Author Organization Healthcare Address [address] [place] [address] Care Team Providers Care Icing And Glaze Maker Name Role Phone Tin Cutler MD Primary Care Provider Encounter Details Date Type Department Care Team ([facility] Contact Info) Description 06/15/2024 Orders Only External Location [address] [place] [address] Jess Krishna, SHIPPING CLERK [address] [facility] [address] [place] [address] Social History Tobacco Use Types Packs/Day Years [...] as of this encounter Plan of Treatment Upcoming Encounters Date Type Department Care Team (Late Contact Info) Description 10/24/2024 4:00 PM EDT Office Visit [facility] Nephrology, Bone & Mineral Metabolism [address] [facility], [address] [place] [address] Eagle Egan MD [address] [place] [address] documented as of this encounter Procedures Procedure Name Priority Date/Time Associated Diagnosis Comments US OUTSIDE IMAGES 06/15/2024 11:08 AM EST documented in this encounter Results * US OUTSIDE IMAGES (06/15/2024 11:08 AM EST) Anatomical Region Laterality Modality Ultrasound 06/15/2024 11:0 8 AM EST us Jess Krishna SHIPPING CLERK IMG US PROCEDURES Jie l Result documented in this encounter Visit Diagnoses Not on filedocumented in this encounter Care Teams Icing And Glaze Maker Relationship Specialty Start Date End Date Tin Cutler MD [address] [place], [place] [address] PCP - General 08/29/20 documented as of this encounter
--- OUTSIDE RECORDS SUMMARY | 2024-10-15 19:15 | XMS_ITS | Encounter Summary ---
Author Organization Healthcare Address [address] [place] [address] Care Team Providers Care Locomotive Observer Name Role Phone Tin Cutler MD Primary Care Provider [phone] Reason for Referral * Consultation (Routine) - Authorized Specialty Diagnoses / Procedures Referred By Naresh croft Referred To Contact Nephrology Diagnoses Acute renal failure, unspecified acute renal failure type (CMS/HCC) Fiorella Nichols APRN [address] [address] Phone: tel: fax: [facility] Nephrology, Bone & Mineral Metabolism [address] [facility], [address] [place] [address] Phone: tel: fax: Referral ID Status Reason Start Date Expiration Date Visits Requested Visits Authorized [id number] Authorized Specialty Services Required 10/03/2024 04/04/2026 1 1 Encounter Details Date Type Department Care Team ([facility] st Contact Info) Description 10/03/2024 Community Orders Community Practice [address] [place] [address] Fiorella Nichols APRN [address] [address] Acute renal failure, unspecified acute renal failure type (CMS/HCC) (Primary Dx) Social History Tobacco Use Types Packs/Day Years [...] Description 10/24/2024 4:00 PM EDT Office Visit [facility] Nephrology, Bone & Mineral Metabolism [address] [facility], [address] [place] [address] Eagle Egan MD [address] [place] [address] Scheduled Referrals Name Type Priority Associated Diagnoses Orde r Schedule Ambulatory referral to Nephrology Outpatient Referral Routine Acute renal failure, unspecified acute renal failure type (CMS/HCC) Expected: 10/10/2024, Expires: 04/06/2026 documented as of this encounter Visit Diagnoses Diagnosis Acute renal failure, unspecified acute renal failure type (CMS/HCC)- Primary documented in this encounter Care Teams Locomotive Observer Relationship Specialty Start Date End Date Tin Cutler MD [address] [place] [address] PCP - General 08/29/20 documented as of this encounter
--- OUTSIDE RECORDS SUMMARY | 2024-10-15 19:15 | XMS_ITS | Encounter Summary ---
Author Organization [facility] Address [address] [place] [address] Care Team Providers Care Cook Jelly Name Role Phone Tin Cutler MD Primary Care Provider [phone] Encounter Details Date Type Department Care Team ([facility] Contact Info) Description 10/12/2024 Telephone [facility] Nephrology, Bone & Mineral Metabolism [address] [facility], [address] [address] Alize De Anda [address] [address] Social History Tobacco Use Types Packs/Day Years [...] on file documented as of this encounter Miscellaneous Notes * Telephone Encounter - Alize De Anda - 10/12/2024 3:16 PM EDT LVM [facility] documented in this encounter Plan of Treatment Upcoming Encounters Date Type Department Care Team ([facility] Contact Info) Description 10/24/2024 4:00 PM EDT Office Visit Professional [facility] Nephrology, Bone & Mineral Metabolism [address] [place] [address] Eagle Egan MD [address] [place] [address] documented as of this encounter Visit Diagnoses Not on filedocumented in this encounter Care Teams Cook Jelly Relationship Specialty Start Date End Date Tin Cutler MD [address] [place] [address] PCP - General 08/29/20 documented as of this encounter
--- OUTSIDE RECORDS SUMMARY | 2024-10-15 19:15 | XMS_ITS | Encounter Summary ---
Author Organization Healthcare Address [address] [place] [address] Care Team Providers Care Metal Wire Coating Operator Name Role Phone Tin Cutler MD Primary Care Provider [phone] Encounter Details Date Type Department Care Team ([facility] Contact Info) Description 10/09/2024 Orders Only [facility] [address] [place] [address] Solange Brothers SOCORRO (acute kidney injury) (CMS/[facility]) (Primary Dx); Vitamin D insufficiency Social History Tobacco Use Types Packs/Day Years [...] Upcoming Encounters Date Type Department Care Team ([facility] Contact Info) Description 10/24/2024 4:00 PM EDT Office Visit [facility] Nephrology, Bone & Mineral Metabolism [address] [facility], [address] [place] [address] Eagle Egan MD [address] [place] [address] Scheduled Orders Name Type Priority Associated Diagnoses Orde r Schedule Renal Function Panel, Plasma Lab Routine SOCORRO (acute kidney injury) (CMS/HCC) Expected: 10/09/2024 (Approximate), Expires: 04/10/2026 CBC W/O Differential Lab Routine SOCORRO (acute kidney injury) (CMS/HCC) Expected: 10/09/2024 (Approximate), Expires: 04/10/2026 Vitamin D 25 Hydroxy Lab Routine SOCORRO (acute kidney injury) ([facility]) Vitamin D insufficiency Expected: 10/09/2024 (Approximate), Expires: 04/10/2026 PTH Intact Total Lab Routine SOCORRO (acute kidney injury) ([facility]) Vitamin D insufficiency Expected: 10/09/2024 (Approximate), Expires: 04/10/2026 Urinalysis with reflex microscopic (Culture NOT Included) Lab Routine SOCORRO (acute kidney injury) ([facility]) Expected: 10/09/2024 (Approximate), Expires: 04/10/2026 Protein, Random, Urine with Creatinine Lab Routine SOCORRO (acute kidney injury) ([facility]) Expected: 10/09/2024 (Approximate), Expires: 04/10/2026 Creatinine, Random, Urine Lab Routine SOCORRO (acute kidney injury) ([facility]) Expected: 10/09/2024 (Approximate), Expires: 04/10/2026 documented as of this encounter Visit Diagnoses Diagnosis SOCORRO (acute kidney injury) ([facility])- Primary Vitamin D insufficiency documented in this encounter Care Teams Metal Wire Coating Operator Relationship Specialty Start Date End Date Tin Cutler MD [address] [place] [address] PCP - General 08/29/20 documented as of this encounter
--- NOTE | 2024-10-15 19:26 | XR_ITS ---
PROCEDURE INFORMATION: Exam: XR Chest Exam date and time: 10/15/2024 7:41 PM Age: 64 years old Clinical indication: Shortness of breath; Additional info: SOA TECHNIQUE: Imaging protocol: Radiologic exam of the chest. Views: 1 view. COMPARISON: CT CHEST WO CON 09/17/2024 6:04 PM FINDINGS: Lungs: Unremarkable. No consolidation. Pleural spaces: Unremarkable. No pleural effusion. No pneumothorax. Heart/Mediastinum: Unremarkable. No cardiomegaly. Bones/joints: Unremarkable. IMPRESSION: No acute findings.
[2024-10-15 19:35] LABS: Hematocrit 24.5 % (37.0-47.0); Hemoglobin 8.1 g/dL (12.2-16.2); Immature Granulocytes % 0.4 %; Mean Corpuscular HGB Conc 33.1 g/dL (31.8-35.4); Mean Corpuscular Hemoglobin 30.5 pg (27.0-31.2); Mean Corpuscular Volume 92.1 fl (81-99); Nucleated Red Blood Cells % 0 %; Platelet Count 194 K/mm3 (142-424); Red Blood Count 2.66 M/mm3 (4.20-5.40); Red Cell Distribution Width-SD 46.1 fL; White Blood Count 5.4 K/mm3 (4.8-10.8)
[2024-10-15 19:43] LABS: Albumin Level 5.0 g/dl (3.5-5.0); Chloride 88 mmol/L (98-107); Potassium 5.1 mmoL/L (3.5-5.1); Sodium 136 mmol/L (136-145)
[2024-10-15 19:44] LABS: Lactate Venous 1.9 mmol/L (0.4-2.0); VBG HCO3 29.9 mmol/L (23-30); VBG PH 7.34 mmol/L (7.31-7.41); VBG PO2 35.7 mmol/L (28-40)
[2024-10-15 19:46] LABS: Alanine Aminotransferase 30 U/L (12-78); Albumin/Globulin Ratio 1.6 (1.1-1.8); Alkaline Phosphatase 104 U/L (38-126); Anion Gap 20.1 mEq/L (5-15); Aspartate Amino Transferase 38 U/L (14-36); Bilirubin,Total 0.4 mg/dl (0.2-1.3); Blood Urea Nitrogen 70 mg/dl (7-17); Calcium 9.3 mg/dl (8.4-10.2); Carbon Dioxide 33 mmol/L (22.0-30.0); Creatinine Clearance Estimated 24 mL/min (50-200); Creatinine,Serum 2.50 mg/dl (0.52-1.04); Estimated Glomerular Filt Rate 19 ml/min (>60); GFR (African American) 24 ML/MIN (>60); Globulin 3.2 g/dL (1.3-3.2); Glucose 253 mg/dl (74-100); Total Protein,Serum 8.2 g/dl (6.3-8.2); VBG PCO2 56.1 mmol/L (35-51)
[2024-10-15 19:56] LABS: NT Pro Brain Natriuretic Pep. 860 pg/mL (0-125)
--- NOTE | 2024-10-15 19:58 | CT_ITS ---
PROCEDURE INFORMATION: Exam: CT Head Without Contrast Exam date and time: 10/15/2024 8:18 PM Age: 64 years old Clinical indication: Altered mental status/memory loss; Additional info: AMS, weakness TECHNIQUE: Imaging protocol: Computed tomography of the head without contrast. Radiation optimization: All CT scans at this facility use at least one of these dose optimization techniques: automated exposure control; mA and/or kV adjustment per patient size (includes targeted exams where dose is matched to clinical indication); or iterative reconstruction. COMPARISON: CT HEAD/BRAIN WO CON 09/17/2024 6:02 PM FINDINGS: Brain: No intracranial hemorrhage. Generalized atrophic changes of the ventricles and subarachnoid spaces. Chronic small-vessel ischemic changes noted. No mass, mass effect or midline shift. Intracranial atherosclerotic changes are noted. Cerebral ventricles: See Brain finding. Paranasal sinuses: Visualized sinuses are unremarkable. No fluid levels. Mastoid air cells: Visualized mastoid air cells are well aerated. Bones: Unremarkable. No acute fracture. Soft tissues: Unremarkable. IMPRESSION: Stable noncontrast CT brain with chronic changes. No acute intracranial abnormality.
[2024-10-15 20:04] LABS: Troponin I < 0.01 ng/ml (0.00-0.034)
[2024-10-15] MEDS: LACTATED RINGERS 1000ML 1,000 ML 999 ML IV (20:30)
--- NOTE | 2024-10-15 20:32 | ED_ITS ---
Discharge Plan Disposition Patient Disposition: Admitted Clinical Impressions Clinical Impression: Symptomatic anemia, Generalized weakness Discharge ED Provider: Tam Vickers General Adult HPI General Chief complaint: Syncope Stated complaint: LOPEZ,SOA Time Seen by Provider: 10/15/24 19:10 Mode of Arrival: Family Vehicle Source of Information: Patient and Spouse Description of Symptoms (Recalled from ER Triage Doc. by RN): Syncope Pt presents to the ED accompanied by her spouse with c/o syncope X mins ago. Pt's reports that the pt was evaluated for cataract surgery to and when they got home he heard her make a weird noise and reports that she was breathing loudly and that her head and eyes were rolled to the side. Pt reports that she does not remember the episode but c/o SOA and LOPEZ. History of Present Illness HPI narrative: Please note that above description of symptoms, in this electronic medical record under categorization of recalled from ER triage doctor by RN are reflective of an initial nursing assessment, however, is not reflective of my full history and physical exam that was personally taken and clarified. Consequentially, this preceding description of symptoms, which may include the patient's categorized chief complaint in the EMR, do not reflect my personal clinical impression, and the ultimate description of history of present illness and patient stated complaints should be deferred to this section of the note. Unless stated otherwise or congruent with this section of the note, additional signs, symptoms, or incongruence should be interpreted as inaccurate with my clinical impression. Related Data Home Medications ?Medication ?Instructions ?Recorded ?Confirmed aspirin 81 mg tablet,delayed 81 mg PO DAILY 11/05/20 0 10/12/24 release omeprazole 40 mg capsule,delayed 40 mg PO DAILY 10/12/24 release albuterol sulfate 90 mcg/actuation 2 puff inhalation Q 6HP PRN 07/02/21 10/12/24 aerosol inhaler Shortness Of Breath Or Wheez ing gabapentin 600 mg tablet 600 mg PO TID 07/08/2210/12 duloxetine 60 mg capsule,delayed 60 mg PO DAILY 10/12/24 release atorvastatin 20 mg tablet 20 mg PO DAILY 09/18/2409/17 clopidogrel 75 mg tablet 75 mg PO DAILY 09/18/2409/17 magnesium oxide 400 mg PO DAILY 09/18/24 ropinirole 1 mg tablet 1 mg PO HS 09/18/24 10/12/24 umeclidinium 62.5 mcg-vilanterol 1 inh inhalation JORDAN Y 10/02/24 10/12/24 25 mcg/actuation powdr for inhalation (Anoro Ellipta) Previous Rx's ?Medication ?Instructions ?Recorded losartan 100 mg tablet 100 mg PO DAILY #30 tabs carvedilol 25 mg tablet (Coreg) 25 mg PO BID #60 tabs 09/26/24 umeclidinium 62.5 mcg-vilanterol 1 inh inhalation JORDAN Y 90 days 10/04/24 25 mcg/actuation powdr for #180 ea inhalation (Anoro Ellipta) Allergies Allergy/AdvReac Type Severity Reaction Status Date / Time menthol (From LidoPatch) Allergy Unknown SKIN RASH Verified 10/15/24 19:13 lidocaine AdvReac Unknown SKIN RASH Verified 10/15/24 19:13 PFSH COUNTS INCLUDE 234 BEDS AT THE [facility] Disclaimer: The information contained in this section may have been updated after the patient was seen, as this information can be updated by other users. Medical History (Updated 10/15/24 @ 22:09 by Tam Vickers MD) History of smoking 30 or more pack years Acute respiratory failure with hypoxia Pulmonary emphysema Viral syndrome Right carotid bruit Fatigue Exposure to COVID-19 virus Chest pain Hypomagnesemia Subcutaneous nodule of back Angina pectoris Abnormal stress test Dyspnea Dizziness Left carotid bruit Palpitations Diastolic dysfunction Aortic insufficiency Abdominal pain Celiac artery stenosis Surgical History History of right-sided carotid endarterectomy H/O carotid endarterectomy H/O: hysterectomy Hx of cholecystectomy History of colonoscopy Family History Other Family history of cancer Family history of diabetes mellitus type II Social History Smoking Status: Never smoker second hand exposure: No alcohol intake: never substance use type: denies use current occupational status: disabled Travel in the last 8 weeks?: None household members: spouse and family housing: house current occupational exposures/hazards: No caffeine: Yes Have you lived/traveled outside [place] in past 30 days?: No Contact w/someone who lives/traveled outside [place] past 30 days?: No Exposure to someone with infectious disease in past 14 days?: No Do you have a fever (greater than 100.4 F or 38 C)?: No Have you tested positive for COVID-19?: No Exposed to someone with COVID-19 in past 14 days?: No Do you have a sore throat?: No Do you have a cough?: No Do you have any weakness?: No Do you have any diarrhea?: No Are you experiencing any unusual bleeding?: No Do you have any muscle aches/pain?: No Do you have any abdominal pain?: No Are you experiencing loss of taste or smell?: No Other Medical History Have you received the Flu Vaccine for this season: No Have you received the Pneumonia Vaccine: No ROS Obtained: Yes All systems reviewed & no additional complaints except as documented Physical Exam General General appearance: alert Head Head exam: atraumatic and normocephalic Eye Eye exam: Present normal appearance, PERRL and EOMI Neck Neck exam: Present normal inspection, full ROM and trachea midline Respiratory Respiratory exam: Present normal lung sounds bilaterally; Absent respiratory distress, wheezes, stridor, accessory muscle use or prolonged expiratory phase Cardiovascular Cardiovascular exam: Present regular rate, normal rhythm, systolic murmur and other (Pulses equal symmetric in upper and lower extremities) Abdominal Exam Abdominal exam: Present soft; Absent distention, tenderness or pulsatile mass Extremities Exam Extremities exam: Absent edema Neurological Exam Neurological exam: Present alert, oriented X3 and CN II-XII intact; Absent motor sensory deficit Skin Skin exam: Present warm, dry and pallor; Absent diaphoresis or erythema Medical Decision Making Medical Records Medical records reviewed: Yes I reviewed the patient's medical records. Screening: Per USPSTF and CDC recommendations, given the prevalence of disease in our region, it is our hospital?s policy to screen for HIV and viral Hepatitis for all patients aged 18 and over and those with ongoing risk factors. Cory Inquiry Pt receiving controlled substance: No Cory was queried for this patient: No Vital Signs: 10/15/24 19:14 10/15/24 19:31 10/15/24 20:01 Temperature 97.7 F Temperature Source Oral Pulse Rate 69 65 Pulse Rate [Left] 65 Respiratory Rate 14 12 Blood Pressure 157/43 H 153/50 H Blood Pressure [Right Arm] 176/56 H Blood Pressure Mean 62 Blood Pressure Mean [Right Arm] 96 Blood Pressure Source [Right Arm] Automatic Cuff Blood Pressure Position [Right Arm] Sitting 02 Sat by Pulse Oximetry 97 96 96 Oxygen Delivery Method Room Air 10/15/24 20:30 10/15/24 21:31 Temperature Temperature Source Pulse Rate 63 61 Pulse Rate [Left] Respiratory Rate 16 Blood Pressure 160/51 H 155/46 H Blood Pressure [Right Arm] Blood Pressure Mean 70 82 Blood Pressure Mean [Right Arm] Blood Pressure Source [Right Arm] Blood Pressure Position [Right Arm] 02 Sat by Pulse Oximetry 96 96 Oxygen Delivery Method Lab Data Lab Results 10/15/24 19:20: WBC 5.4, RBC 2.66 L, Hgb 8.1 L, Hct 24.5 L, MCV 92.1, MCH 30.5, MCHC 33.1, RDW 14.0, Plt Count 194, MPV 9.7, Neut % (Auto) 70.5, Lymph % (Auto) 16.2, [place] % (Auto) 9.3, Eos % (Auto) 3.0, Baso % (Auto) 0.6, Neut # (Auto) 3.8, Lymph # (Auto) 0.9, [place] # (Auto) 0.5, Eos # (Auto) 0.2, Baso # (Auto) 0.0, Retic Count (auto) 2.5, VBG pH 7.34, VBG pCO2 56.1 H, VBG pO2 35.7, VBG HCO3 29.9, VBG Total CO2 31.6 H, VBG O2 Saturation 61.6, VBG Base Excess 4.2 H, VBG Lactic Acid 1.9, Sodium 136, Potassium 5.1, Chloride 88 L, Carbon Dioxide 33 H, Anion Gap 20.1 H, BUN 70 H, Creatinine 2.50 H, Estimated Creat Clear 24, E stimated GFR 19 L*, Est GFR ( Amer) 24 L, Glucose 253 H, Calcium 9.3, Total Bilirubin 0.4, AST 38 H, ALT 30, Alkaline Phosphatase 104, Troponin I < 0.01, NT-Pro-B Natriuret Pep 860 H, Total Protein 8.2, Albumin 5.0, Globulin 3.2, Albumin/Globulin Ratio 1.6 10/15/24 20:12: Blood Type A Positive, Antibody Screen Negative 10/15/24 21:00: Urine Color Yellow, Urine Appearance Clear, Urine pH 7.5, Ur Specific [place] 1.010, Urine Protein Negative, Urine Glucose (UA) 3+, Urine Ketones Negative, Urine Blood Negative, Urine Nitrate Negative, Urine Bilirubin Negative, Urine Urobilinogen 0.2, Ur Leukocyte Esterase Trace, Urine RBC None, Urine WBC Occasional, Ur Squamous Epith Cells Occasional, Urine Bacteria None 10/15/24 19:20 10/15/24 19:20 Orders (Tests/Meds): ED MEDICATIONS Generic Name Dose Route Start Last Admin Trade Name Channing PRN Reason Stop Dose Admin Acetaminophen 650 mg 10/15/24 21:25 Acetaminophen 325mg Tab PO 11/14/24 21:24 Q4HP PRN Fever or Mild Pain (1-3) Hydrocodone Bitart/Acetaminophen 1 tab 10/15/24 21:25 Hydrocodone/Apap 5/325 Mg Tablet PO 11/14/24 21:24 Q4HP PRN Mild to Moderate Pain (1-6) Sodium Chloride 250 mls @ 25 mls/hr 10/15/24 21:30 Sod Chlor 0.9% 250ml Bag IV 10/16/24 21:29 .Q10H [facility] Insulin Human Lispro 2 - 12 unit 10/16/24 06:00 Humalog 100 Units/Ml 10ml Vial ([facility]) SUBCUT 11/15/24 05:59 ACHS [facility] Protocol Pantoprazole Sodium 40 mg 10/15/24 21:25 Pantoprazole 40mg Tablet PO 11/15/24 20:59 HS PRN Acid Reflux Discontinued Medications Generic Name Dose Route Start Last Admin Trade Name Channing PRN Reason Stop Dose Admin Acetaminophen 1,000 mg 10/15/24 20:38 10/15/24 20:48 Acetaminophen 1,000mg/100ml Vial IV 10/15/24 20:39 1,000 mg ONCE ONE Administration Diphenhydramine HCl 25 mg 10/15/24 20:38 10/15/24 20:48 Diphenhydramine 50mg/Ml Vial IV 10/15/24 20:39 25 mg ONCE ONE Administration Lactated Ringer's 1,000 mls @ 999 mls/hr 10/15/24 19:58 10/15/24 20:30 Lactated Ringer's 1000 Ml Bag IV 10/15/24 20:58 999 mls/hr .Q1H1M ONE Administration Magnesium Sulfate 2 gm in 50 mls @ 50 mls/hr 10/15/24 20:38 10/15/24 20:48 Magnesium Sulfate 2gm/50ml Premix IV 10/15/24 21:37 50 mls/hr ONCE ONE Administration Ketorolac Tromethamine 15 mg 10/15/24 20:38 10/15/24 20:48 Ketorolac 30mg/Ml Vial IV 10/15/24 20:39 15 mg ONCE ONE Administration Metoclopramide HCl 10 mg 10/15/24 20:38 10/15/24 20:48 Metoclopramide Hcl 10mg/2ml Vial IVP 10/15/24 20:39 10 mg ONCE ONE Administration ORDERS Category Date Time Status Transfuse RBC's [Red Blood Cells] Stat BBK 10/15/24 20:12 Results Type and Screen Stat BBK 10/15/24 20:[address] head/brain wo con Stat Cat Scan 10/15/24 19:58 Completed CXR --portable [XR chest portable] Stat Exams 10/15/24 19:26 Completed CBC w/Auto Diff [Complete Blood Count Auto Diff] Stat Lab 10/15/24 19:20 Completed CMP [Comprehensive Metabolic Panel] Stat Lab 10/15/24 19:20 Completed Complete Blood Count Auto Diff AMLAB Lab 10/16/24 06:00 Ordered Comprehensive Metabolic Panel AMLAB Lab 10/16/24 06:00 Ordered Lipid Panel AMLAB Lab 10/16/24 06:00 Ordered Magnesium AMLAB Lab 10/16/24 06:00 Ordered NT Pro Brain Natriuretic Pep. Stat Lab 10/15/24 19:20 Completed Occult Blood,Stool Stat Lab 10/15/24 21:28 Ordered Phosphorous AMLAB Lab 10/16/24 06:00 Ordered Reticulocyte % (Auto) Stat Lab 10/15/24 19:20 Completed Trop I [Troponin I] Stat Lab 10/15/24 19:20 Completed Troponin I Q3H Lab 10/15/24 22:30 Ordered Troponin I Q3H Lab 10/16/24 01:30 Ordered UA [Urinalysis and Microscopic] Stat Lab 10/15/24 21:00 Completed VBG [Venous Blood Gas] Stat RT 10/15/24 19:20 Completed CA echo doppler complete Routine Y 10/15/24 21:29 Ordered HEART Score History (anamnesis): Slightly suspicious ECG: Non-specific disturbance Age: >65 years Risk factors: 3 or more risk factors Troponin: </= normal limit HEART Score: 5 Medical Decision Narrative: 64-year-old female presenting with generalized weakness. She states that she was seen at the doctor's appointment today for her cataract surgery that she is going to get done in a couple of weeks. States that when she got home she started feeling generally weak. Family at bedside states that when she was sitting she had a 10-second episode where she turned her head to the left, eyes deviated to the left, and she made a grunting sound. Came back to baseline, no postictal period. Patient has been feeling generally weak since that time. No chest pain, vomiting, but has had some dry heaves. No diarrhea, fevers, chills, other sick symptoms. History was obtained via conversation with patient and family. On arrival, patient hemodynamically stable, alert, oriented x4, appropriate, GCS 15, moving all extremities spontaneously, pupils equal and reactive to light. Full physical exam performed and significant for worn out, fatigued appearing patient in no acute distress. Speaking in full sentences, neurologically intact and symmetric with NIHSS 0. Cardiac exam with systolic ejection murmur heard throughout the precordium. No gallops or rubs. No lower extremity edema. Pulses equal and symmetric in upper and lower extremities. Patient appears pale. Differential includes metabolic abnormality, endocrinologic abnormality, ACS, NE, seizure anemia, TIA, among others. Patient placed on continuous cardiac monitoring and continuous pulse ox with initial blood pressure 176/56, heart rate 65, saturation 96% on room air. Independent interpretation of EKG shows sinus bradycardia [address] 168, QRS 85, QTc 416. Normal axis and no acute ischemic change.. Patient was given fluids, migraine cocktail for symptomatic management and correction of underlying abnormalities. Workup independently interpreted and significant for nonactionable CBC or VBG. Patient's chemistry consistent with CKD creatinine 2.5 and BUN 70. Sodium and potassium both normal. On independent interpretation of imaging, nonacute chest x-ray. CT head without any acute intracranial findings. See radiology read for full review of final results. On reevaluation, patient's headache completely gone. Feeling much better, but still feeling weak. I feel the patient's pallor, and generalized fatigue likely secondary to symptomatic anemia. She is a cardiac patient and anemia 8, steadily downtrending. Type and screen was ordered and patient was transfused. Hospital medicine was contacted and case was discussed at length. Unsure if patient needs MRI or not given that she is neurologically intact, but I do not have a great explanation for the seizure-like phenomenon that she experienced today. Could have been presyncopal given the aortic pathology, but not completely unsure. To be admitted for further definitive management [employer] Operator disclaimer Much of this encounter note is an electronic manager traffic spoken language to printed text. Electronic manager traffic of the spoken language may permit errors. Although I have reviewed the note, some errors may still exist. Critical Care Critical Care Time Critical Care Time: Yes (hematologic) Attestation: On 10/15/24, the high probability of a clinically significant, sudden or life threatening deterioration of the following system(s) required my full and direct attention, intervention and personal management. The time I documented below is in addition to time spent performing reported procedures but includes the following listed in this critical care notation. Total Time Total Critical Care Time: 35
[2024-10-15] MEDS: ACETAMINOPHEN 1,000MG/100ML VIAL 1000 MG IV (20:48)
[2024-10-15] MEDS: KETOROLAC 30MG/ML VIAL 15 MG IV (20:48)
[2024-10-15] MEDS: MAGNESIUM SULFATE IN WATER 2 GM/50 ML PIGGYBACK IV (20:48)
[2024-10-15] MEDS: METOCLOPRAMIDE HCL 10MG/2ML VIAL 10 MG IVP (20:48)
[2024-10-15 21:09] LABS: Microscopic, Urine URINE MICROSCOPIC (MICROSCOPIC)
[2024-10-15 21:11] LABS: Bilirubin,Urine Negative (Negative); Color,Urine YELLOW (Yellow); Glucose,Urine (UA) 3+ (Negative); Ketones,Urine Negative (Negative); Leukocyte Esterase,Urine TRACE (Negative); PH,Urine 7.5 (5.0-8.5); Protein,Urine Negative (Negative); Specific Gravity, Urine 1.010 (1.005-1.030); Urobilinogen,Urine 0.2 EU/dl (0.2)
[2024-10-15 21:26] LABS: Squamous Epithelial Cell,Urine Occasional #/hpf (0-5); WBC,Urine Occasional #/hpf (0-3)
--- NOTE | 2024-10-15 21:30 | EXP.HP ---
History of Present Illness *Admission Date: 10/15/24 *Reason for visit:: symptomatic anemia *History of present illness: 64-year-old female comes emergency department following an episode of syncope/unresponsiveness that was very brief. is in the ER. States that she was acting normally at home and then made a weird noise and was slightly unconscious and breathing abnormally. She had ocular deviation. The symptoms lasted a few seconds, she did not fall as she was in her couch , after 10-15 seconds return to baseline. has had 2 episodes the last month. both preceeding by only palpitations Denies similar episodes. Denies any other complaints. He is not having any hematuria or melena, or active blood loss that she is aware of. Discussed slowly reducing blood counts, uncertain where blood loss is going Came to the emergency department for evaluation. CT head normal. EKG sinus bradycardia no ST deviations. CT chest with no aortic valve calcification, calcific plaque in LAD RCA and circumflex. Labs notable for hemoglobin 8.1, creatinine 2.5 Given 1 unit of packed red blood cells in the emergency department. Hospitalist consulted for admission for symptomatic anemia History independently obtained. Labs and diagnostics independently interpreted. Old records reviewed. Case discussed with ER physician [facility] Disclaimer: The information contained in this section may have been updated after the patient was seen, as this information can be updated by other users. Medical History (Updated 10/15/24 @ 22:09 by Tam Vickers MD) History of smoking 30 or more pack years Acute respiratory failure with hypoxia Pulmonary emphysema Viral syndrome Right carotid bruit Fatigue Exposure to COVID-19 virus Chest pain Hypomagnesemia Subcutaneous nodule of back Angina pectoris Abnormal stress test Dyspnea Dizziness Left carotid bruit Palpitations Diastolic dysfunction Aortic insufficiency Abdominal pain Celiac artery stenosis Surgical History History of right-sided carotid endarterectomy H/O carotid endarterectomy H/O: hysterectomy Hx of cholecystectomy History of colonoscopy Family History Other Family history of cancer Family history of diabetes mellitus type II Social History Smoking Status: Never smoker second hand exposure: No alcohol intake: never substance use type: denies use current occupational status: disabled Travel in the last 8 weeks?: None household members: spouse and family housing: house current occupational exposures/hazards: No caffeine: Yes Have you lived/traveled outside [place] in past 30 days?: No Contact w/someone who lives/traveled outside US past 30 days?: No Exposure to someone with infectious disease in past 14 days?: No Do you have a fever (greater than 100.4 F or 38 C)?: No Have you tested positive for COVID-19?: No Exposed to someone with COVID-19 in past 14 days?: No Do you have a sore throat?: No Do you have a cough?: No Do you have any weakness?: No Do you have any diarrhea?: No Are you experiencing any unusual bleeding?: No Do you have any muscle aches/pain?: No Do you have any abdominal pain?: No Are you experiencing loss of taste or smell?: No Other Medical History Have you received the Flu Vaccine for this season: No Have you received the Pneumonia Vaccine: No Review of Systems Review of Systems Review of systems:: pertinent systems reviewed and negative unless documented below Constitutional Constitutional: Reports system reviewed and no additional complaints, except as documented Eyes Eyes: Reports system reviewed and no additional complaints, except as documented ENT Ears, Nose, Mouth, and Throat: Reports system reviewed and no additional complaints, except as documented *Cardiovascular Cardiovascular: Reports system reviewed and no additional complaints, except as documented and Reports syncope *Respiratory Respiratory: Reports system reviewed and no additional complaints, except as documented *Gastrointestinal Gastrointestinal: Reports system reviewed and no additional complaints, except as documented *Genitourinary Genitourinary: Reports system reviewed and no additional complaints, except as documented and Denies hematuria *Musculoskeletal Musculoskeletal: Reports system reviewed and no additional complaints, except as documented *Neurologic Neurologic: Reports system reviewed and no additional complaints, except as documented, Reports convulsions and Reports syncope Meds Home Medications and Allergies Home Medications ?Medication ?Instructions ?Recorded ?Confirmed ?Type aspirin 81 mg tablet,delayed 81 mg PO DAILY 11/05/20 10/12/24 History release omeprazole 40 mg capsule,delayed 40 mg PO DAILY 11/05/20 10/12/24 History release albuterol sulfate 90 mcg/actuation 2 puff inhalation Q6HP PRN 07/02/21 10/12/24 History aerosol inhaler Shortness Of Breath Or Wheezing gabapentin 600 mg tablet 600 mg PO TID 07/08/22 10/12/24 History duloxetine 60 mg capsule,delayed 60 mg PO DAILY 06/07/24 10/12/24 History release losartan 100 mg tablet 100 mg PO DAILY #30 tabs 08/09/24 10/12/24 Rx atorvastatin 20 mg tablet 20 mg PO DAILY 09/18/24 10/12/24 History clopidogrel 75 mg tablet 75 mg PO DAILY 09/18/24 10/12/24 History magnesium oxide 400 mg PO DAILY 09/18/24 10/12/24 History ropinirole 1 mg tablet 1 mg PO HS 09/18/24 10/12/24 History carvedilol 25 mg tablet (Coreg) 25 mg PO BID #60 tabs 09/26/24 10/12/24 Rx umeclidinium 62.5 mcg-vilanterol 1 inh inhalation DAILY 10/02/24 10/12/24 History 25 mcg/actuation powdr for inhalation (Anoro Ellipta) umeclidinium 62.5 mcg-vilanterol 1 inh inhalation DAILY 90 days 10/04/24 10/12/24 Rx 25 mcg/actuation powdr for #180 ea inhalation (Anoro Ellipta) New Prescriptions to Start Prescriptions: Allergies Allergy/AdvReac Type Severity Reaction Status Date / Time menthol (From LidoPatch) Allergy Unknown SKIN RASH Verified 10/15/24 19:13 lidocaine AdvReac Unknown SKIN RASH Verified 10/15/24 19:13 Exam Data for Last 24 hours Vital signs and Labs for Last 24 Hours: Temp Pulse Resp BP Pulse Ox O2 Del Method 97.7 F 69 12 157/43 H 96 Room Air 10/15/24 19:14 10/15/24 19:31 10/15/24 19:31 10/15/24 19:31 10/15/24 19:31 10/15/24 19:14 Laboratory Results - last 24 hr 10/15/24 19:20: WBC 5.4, RBC 2.66 L, Hgb 8.1 L, Hct 24.5 L, MCV 92.1, MCH 30.5, MCHC 33.1, RDW 14.0, Plt Count 194, MPV 9.7, Neut % (Auto) 70.5, Lymph % (Auto) 16.2, [place] % (Auto) 9.3, Eos % (Auto) 3.0, Baso % (Auto) 0.6, Neut # (Auto) 3.8, Lymph # (Auto) 0.9, [place] # (Auto) 0.5, Eos # (Auto) 0.2, Baso # (Auto) 0.0, VBG pH 7.34, VBG pCO2 56.1 H, VBG pO2 35.7, VBG HCO3 29.9, VBG Total CO2 31.6 H, VBG O2 Saturation 61.6, VBG Base Excess 4.2 H, VBG Lactic Acid 1.9, Sodium 136, Potassium 5.1, Chloride 88 L, Carbon Dioxide 33 H, Anion Gap 20.1 H, BUN 70 H, Creatinine 2.50 H, Estimated Creat Clear 24, Estimated GFR 19 L*, Est GFR ( Amer) 24 L, Glucose 253 H, Calcium 9.3, Total Bilirubin 0.4, AST 38 H, ALT 30, Alkaline Phosphatase 104, Troponin I < 0.01, NT-Pro-B Natriuret Pep 860 H, Total Protein 8.2, Albumin 5.0, Globulin 3.2, Albumin/Globulin Ratio 1.6 10/15/24 20:12: Blood Type A Positive, Antibody Screen Negative 10/15/24 21:00: Urine Color Yellow, Urine Appearance Clear, Urine pH 7.5, Ur Specific [place] 1.010, Urine Protein Negative, Urine Glucose (UA) 3+, Urine Ketones Negative, Urine Blood Negative, Urine Nitrate Negative, Urine Bilirubin Negative, Urine Urobilinogen 0.2, Ur Leukocyte Esterase Trace, Urine RBC None, Urine WBC Occasional, Ur Squamous Epith Cells Occasional, Urine Bacteria None I & O for Last 24 hours: Intake & Output 10/12/24 10/13/24 10/14/24 10/15/24 23:59 23:59 23:59 23:59 Weight 64.864 kg Constitutional Constitutional: no acute distress *Routine HEENT Exam Head: Present normocephalic Eye: Present EOMI and PERRL ENT: Present mucous membranes moist *Routine Neck Exam Neck: Present supple; Absent lymphadenopathy *Routine Respiratory Exam Respiratory: Present CTA bilaterally *Routine Cardiovascular Exam Cardiovascular: Present RRR and murmur *Routine Abdominal Exam Abdominal: Present soft and normoactive bowel sounds; Absent tenderness *Routine Rectal Exam Rectal:: deferred *Routine Genitalia Exam Genitalia:: deferred *Routine Extremities Exam Extremities: Absent cyanosis, clubbing or edema *Routine Skin Exam Skin: Present warm; Absent rash *Routine Neurological Exam Neurological: Present alert and oriented X3 Assessment and Plan *Assessment and plan (1) History of smoking 30 or more pack years: Status: Acute Category: Social Hx Code(s): Z87.891 - Personal history of nicotine dependence (2) Falls: Status: Acute Category: Medical Code(s): R29.6 - Repeated falls (3) Pulmonary emphysema: Status: Acute Category: Medical Code(s): J43.9 - Emphysema, unspecified (4) CAD (coronary artery disease): Status: Chronic Qualifiers: Associated angina: without angina Coronary Disease-Associated Artery/Lesion type: [place] artery [place] vs. transplanted heart: [place] heart Qualified Code(s): I25.10 - Atherosclerotic heart disease of [place] coronary artery without angina pectoris Category: Medical Code(s): I25.10 - Atherosclerotic heart disease of [place] coronary artery without angina pectoris (5) DM (diabetes mellitus): Status: Chronic Qualifiers: Diabetes mellitus complication status: without complication Diabetes mellitus chcf insulin use: without chcf use Diabetes mellitus type: type 2 Qualified Code(s): E11.9 - Type 2 diabetes mellitus without complications Category: Medical Code(s): E11.9 - Type 2 diabetes mellitus without complications (6) HLD (hyperlipidemia): Status: Chronic Qualifiers: Hyperlipidemia type: mixed hyperlipidemia Qualified Code(s): E78.2 - Mixed hyperlipidemia Category: Medical Code(s): E78.5 - Hyperlipidemia, unspecified (7) Syncope: Status: Acute Category: Medical Code(s): R55 - Syncope and collapse (8) Murmur: Status: Acute Category: Medical Code(s): R01.1 - Cardiac murmur, unspecified Plan 64-year-old female presenting with brief episode of syncope. Unknown etiology, suspect batool vs arrythmia. Also noted symptomatic anemia and received 1 unit of packed red blood cells in the ER. Unknown etiology of blood loss, potentially from renal failure and low production, follow-up reticulocyte count and eval for blood loss. Echo for murmur possible Syncope - Echo - Telemetry - hold coreg for now, reduce given bradycardia (maybe contribute? ) - zio on dc Symptomatic anemia - blood loss versus CKD reduced RBC production - Guaiac ordered - Monitor hgb - 1 unit packed red blood cells in the ER - May need EPO, follow-up reticulocyte count PAD - on DAPT, pad pci over 1 year ago, discontinue until eitiology of anemia described - if no active blood loss would benefit from xarelto 2.5 bid and asa COPD - Inhalers - BiPAP at night prn CKD - At baseline - Monitor - May need EPO - hold arb, resume tomorrow if indicated after med reconciliation Diabetes - SSI RLS - ropinerole
[2024-10-15 21:54] LABS: Reticulocyte % (Auto) 2.5 % (0.9-3.2)
--- NOTE | 2024-10-15 22:22 | PC.NURSE ---
Second floor staff is on their way to get patient. Lab called to notify that blood is ready. Notified Mar Storey RN that blood is ready.
--- NOTE | 2024-10-15 22:34 | PC.NURSE ---
Patient arrived to floor via wheelchair from ED at 22:29.
[2024-10-15] MEDS: 0.9 % SODIUM CHLORIDE 250 ML 25 ML IV (23:19)
--- NOTE | 2024-10-15 23:20 | PC.NURSE ---
Pt stated she doesn't know her meds. Said he would be back in the morning with a list. med rec not completed.
[2024-10-15 23:41] LABS: Troponin I < 0.01 ng/ml (0.00-0.034)
[2024-10-16] VITALS (11 sets, daily range): BP systolic 105–158; BP diastolic 40–71; PULSE 60–94; RESP 14–22; TEMP 36.4–37.1; O2SAT 16–96; BMI 27.4
[2024-10-16 02:41] LABS: Hematocrit 23.8 % (37.0-47.0); Hemoglobin 7.9 g/dL (12.2-16.2)
[2024-10-16 03:58] LABS: Troponin I < 0.01 ng/ml (0.00-0.034)
--- NOTE | 2024-10-16 05:38 | PC.NURSE ---
New Admit. Pt received 1 unit of blood. Pt didn't have any acute adverse reactions to blood. Echo cancelled due to pt already having one that was completed on Sep 18. Provider notified and cancelled. v/s, ox4, RA, bed alarm set due to syncopal episodes. Plan of care ongoing.
[2024-10-16 06:32] LABS: Hematocrit 24.6 % (37.0-47.0); Hemoglobin 7.9 g/dL (12.2-16.2); Immature Granulocytes % 0.4 %; Mean Corpuscular HGB Conc 32.1 g/dL (31.8-35.4); Mean Corpuscular Hemoglobin 29.5 pg (27.0-31.2); Mean Corpuscular Volume 91.8 fl (81-99); Nucleated Red Blood Cells % 0 %; Platelet Count 142 K/mm3 (142-424); Red Blood Count 2.68 M/mm3 (4.20-5.40); Red Cell Distribution Width-SD 45.5 fL; White Blood Count 4.9 K/mm3 (4.8-10.8)
[2024-10-16 06:41] LABS: Alanine Aminotransferase 23 U/L (12-78); Albumin Level 3.9 g/dl (3.5-5.0); Albumin/Globulin Ratio 1.5 (1.1-1.8); Alkaline Phosphatase 83 U/L (38-126); Anion Gap 13.8 mEq/L (5-15); Aspartate Amino Transferase 32 U/L (14-36); Bilirubin,Total 0.5 mg/dl (0.2-1.3); Blood Urea Nitrogen 69 mg/dl (7-17); Calcium 9.0 mg/dl (8.4-10.2); Carbon Dioxide 31 mmol/L (22.0-30.0); Chloride 90 mmol/L (98-107); Cholesterol 157 mg/dl (140-200); Creatinine Clearance Estimated 24 mL/min (50-200); Creatinine,Serum 2.70 mg/dl (0.52-1.04); Estimated Glomerular Filt Rate 18 ml/min (>60); GFR (African American) 22 ML/MIN (>60); Globulin 2.6 g/dL (1.3-3.2); Glucose 323 mg/dl (74-100); HDL Cholesterol 51 mg/dl (40-60); Magnesium 3.6 mg/dl (1.6-2.3); Phosphorous 8.1 mg/dl (2.5-4.5); Potassium 4.8 mmoL/L (3.5-5.1); Sodium 130 mmol/L (136-145); Total Protein,Serum 6.5 g/dl (6.3-8.2); Triglycerides 177 mg/dl (30-150)
[2024-10-16] MEDS: humaLOG 100 UNITS/ML 10ML VIAL (SSI) SUBCUT ×3 (06:44→21:22)
--- NOTE | 2024-10-16 07:53 | HMH.PHAINT1 ---
Pharmacy Intervention Comments: CLARIFIED HOME MEDICATION LIST USING LIST FROM OUTPATIENT PHARMACY AND PT INTERVIEW
[2024-10-16 08:46] LABS: Iron 201 ug/dL (37-170)
[2024-10-16 08:55] LABS: Total Iron Binding Capacity 359 ug/dL (265-497)
[2024-10-16 09:54] LABS: Vitamin B12 392 pg/mL (239-931)
[2024-10-16 10:18] LABS: Folate 16.10 ng/mL
[2024-10-16] MEDS: GABAPENTIN 600MG TABLET 600 MG PO ×2 (10:18→21:10)
[2024-10-16] MEDS: CARVEDILOL 25MG TABLET 25 MG PO (10:18)
[2024-10-16] MEDS: ROPINIROLE 1 MG 0.5 MG PO (10:21)
[2024-10-16 10:57] LABS: POC Glucose,Bedside 325 (70-110)
[2024-10-16] MEDS: VILANTEROL IH (11:17)
[2024-10-16] MEDS: UMECLIDINIUM IH (11:17)
[2024-10-16] MEDS: FLUTICASONE PROP 50MCG NASAL SPRAY 16GM 2 SPRAY NS (12:01)
[2024-10-16] MEDS: LORATADINE 10MG TABLET 10 MG PO (12:02)
[2024-10-16 12:16] LABS: POC Glucose,Bedside 96 (70-110)
[2024-10-16 12:19] LABS: Hematocrit 26.5 % (37.0-47.0); Hemoglobin 8.5 g/dL (12.2-16.2); Immature Granulocytes % 0.4 %; Mean Corpuscular HGB Conc 32.1 g/dL (31.8-35.4); Mean Corpuscular Hemoglobin 29.6 pg (27.0-31.2); Mean Corpuscular Volume 92.3 fl (81-99); Nucleated Red Blood Cells % 0 %; Platelet Count 147 K/mm3 (142-424); Red Blood Count 2.87 M/mm3 (4.20-5.40); Red Cell Distribution Width-SD 47.0 fL; White Blood Count 5.1 K/mm3 (4.8-10.8)
--- NOTE | 2024-10-16 14:10 | HMH.PTEV ---
Physical Therapy Evaluation Rehab PT IP Evaluation Start: 10/16/24 11:02 Freq: ONCE Status: Active Protocol: Document 10/16/24 14:05 PHORNE (Rec: 10/16/24 14:09 PHORNE [id number]) Subjective/History History History 64-year-old female comes emergency department following an episode of syncope/unresponsiveness that was very brief. is in the ER. States that she was acting normally at home and then made a weird noise and was slightly unconscious and breathing abnormally. She had ocular deviation. The symptoms lasted a few seconds, she did not fall as she was in her couch , after 10-15 seconds return to baseline. She reports she lives with at baseline, 4 MAGGIE the home, and she is generally independent with all ambulation and ADLs using a straight cane. Subjective Subjective Pt reports no c/o pain, dizziness, or lightheadedness at this time. She does report feeling of increased SOA after evaluation. [facility] How much help from another person do you currently need... Turning from your None back to your side while in a flat bed without using bedrails? Moving from lying on None back to sitting on the side of a flat bed without using bedrails? Moving to and from a None bed to a chair ( including a wheelchair)? Standing up from a None chair using your arms? (e.g., wheelchair, bedside chair) Walking in hospital A little room? Climbing 3-5 steps A little with a railing? Mobility Score 22 Mobility Level [facility] Mobility Walk 25 feet or more Mobility Calculator Rehab PT IP Eval Objective Appearance Patient Behavior Appropriate Patient Orientation Person,Place,Time Difficulty following none instructions Speech Pattern Clear Ambulation Patient Able to Yes Ambulate Ambulation Observation IP General Gait No Deviations/Normal Pattern Observation Ambulation Distance 30 (feet) Ambulation Assistive None Device Ambulation Ability Contact Guard/Hand Hold Balance Ability to Arise Able, uses arms to help Sitting Balance Steady, safe Standing Balance Steady, wide stance Dynamic Sitting Good Balance Ability Dynamic Standing Fair Balance Ability Transfers Bed Transfer Ability Supervision/Stand by Chair Transfer Supervision/Stand by Ability Sit to Stand Bed Supervision/Stand by Transfer Ability Sit to Stand Chair Supervision/Stand by Transfer Ability Rehab PT IP prob,goals,plan Problems Date of Evaluation: 10/16/24 Discharge Plan PT Discharge Plan Pt is currently appropriate to return home with assistance. She has no inpatient acute therapy needs at this time. reports he is present with pt 24 hours per day and able to assist as needed. Eval Complexity Eval Charge Codes 61238 - High Complexity PHYSICIAN CERTIFICATION: I certify the specified therapy services for Dilia Chester are required, authorized, and reviewed every 30 days.
--- NOTE | 2024-10-16 15:17 | P.PN_ITS ---
<Statement entered by Naveen Fisher MD - 10/16/24 18:46> Rounded on patient after nurse practitioner. Personally examined and interviewed patient. Agree with exam findings and care plan as documented. Subjective *Date: 10/16/24 *Time: 15:17 Interval history: Patient lying in the bed, at bedside. Patient does complain of intermittent shortness of breath and lightheadedness. She denies chest pain, tightness, abdominal pain, nausea, vomiting, diarrhea. She states that she has had 2 syncopal episodes in the past month, prior to the syncopal episode she feels palpitations and shortness of breath. She does state that she recently had medicine changes, Coreg 12.5 twice daily was changed to Coreg 25 twice daily. She denies illness, fever, night sweats. Medical Exam Vital signs and Labs for Last 24 Hours: Vital Signs Temp Pulse Pulse Pulse Pulse Pulse Resp 10/16/24 12:00 98.2 F 80 18 10/16/24 11:02 71 75 76 10/16/24 11:00 10/16/24 09:00 10/16/24 08:00 10/16/24 08:00 97.8 F 61 16 10/16/24 06:13 10/16/24 04:18 10/16/24 04:00 97.8 F 67 16 10/16/24 03:00 10/16/24 02:24 97.6 F 67 14 10/16/24 01:24 98.0 F 62 16 10/16/24 01:15 97.6 F 67 14 10/16/24 01:00 10/16/24 00:15 97.9 F 60 16 10/16/24 00:00 97.9 F 94 H 16 10/15/24 23:45 97.7 F 64 16 10/15/24 23:30 97.6 F 68 16 10/15/24 23:25 97.7 F 61 10/15/24 23:20 97.9 F 63 16 10/15/24 23:15 97.6 F 61 16 10/15/24 23:10 97.5 F L 69 10/15/24 22:48 10/15/24 22:45 97.7 F 60 10/15/24 22:22 97.7 F 67 12 10/15/24 22:18 67 12 10/15/24 21:58 10/15/24 21:31 61 16 10/15/24 20:30 63 10/15/24 20:01 65 10/15/24 19:31 69 12 10/15/24 19:14 97.7 F 65 14 BP BP BP BP BP Pulse Ox O2 Del Method 10/16/24 12:00 151/67 H 93 L Room Air 10/16/24 11:02 139/51 L 136/48 L 139/68 10/16/24 11:00 Room Air 10/16/24 09:00 Room Air 10/16/24 08:00 Room Air 10/16/24 08:00 138/69 96 Room Air 10/16/24 06:13 Room Air 10/16/24 04:18 Room Air 10/16/24 04:00 115/53 L 96 Room Air 10/16/24 03:00 Room Air 10/16/24 02:24 105/41 L 95 10/16/24 01:24 129/49 L 94 L 10/16/24 01:15 119/40 L 95 10/16/24 01:00 Room Air 10/16/24 00:15 153/71 H 95 10/16/24 00:00 151/65 H 16 L 10/15/24 23:45 126/45 L 97 10/15/24 23:30 138/54 L 95 10/15/24 23:25 133/48 L 95 10/15/24 23:20 153/60 H 95 10/15/24 23:15 139/57 L 96 10/15/24 23:10 145/54 H 97 10/15/24 22:48 Room Air 10/15/24 22:45 152/45 H 99 Room Air 10/15/24 22:22 152/45 H Room Air 10/15/24 22:18 152/45 H 97 10/15/24 21:58 Room Air 10/15/24 21:31 155/46 H 96 10/15/24 20:30 160/51 H 96 10/15/24 20:01 153/50 H 96 10/15/24 19:31 157/43 H 96 10/15/24 19:14 176/56 H 97 Room Air Intake and Output 10/15/24 10/16/24 10/16/24 23:59 07:59 15:59 Intake Total 0 / 0 0 / 510 510 / 510 Output Total 700 / 700 1150 / 1150 Balance -700 / -700 0 / -640 -640 / -640 Intake: Intake, Oral Amount 510 / 510 Intake (Blood Product) Amt 0 / 0 0 / 0 Red Blood Cells Unit 0 / 0 0 / 0 [id number] Output: Output, Urine Amount 700 / 700 1150 / 1150 Other: Number of Unmeasured Voids 0 Weight 68.266 kg 70.307 kg Patient Weight 10/16/24 23:59 Weight 70.307 kg Laboratory Results - last 24 hr 10/15/24 19:20: WBC 5.4, RBC 2.66 L, Hgb 8.1 L, Hct 24.5 L, MCV 92.1, MCH 30.5, MCHC 33.1, RDW 14.0, Plt Count 194, MPV 9.7, Neut % (Auto) 70.5, Lymph % (Auto) 16.2, Allen % (Auto) 9.3, Eos % (Auto) 3.0, Baso % (Auto) 0.6, Neut # (Auto) 3.8, Lymph # (Auto) 0.9, Allen # (Auto) 0.5, Eos # (Auto) 0.2, Baso # (Auto) 0.0, Retic Count (auto) 2.5, VBG pH 7.34, VBG pCO2 56.1 H, VBG pO2 35.7, VBG HCO3 29.9, VBG Total CO2 31.6 H, VBG O2 Saturation 61.6, VBG Base Excess 4.2 H, VBG Lactic Acid 1.9, Sodium 136, Potassium 5.1, Chloride 88 L, Carbon Dioxide 33 H, Anion Gap 20.1 H, BUN 70 H, Creatinine 2.50 H, Estimated Creat Clear 24, Estimated GFR 19 L*, Est GFR ( Amer) 24 L, Glucose 253 H, Calcium 9.3, Total Bilirubin 0.4, AST 38 H, ALT 30, Alkaline Phosphatase 104, Troponin I < 0.01, NT-Pro-B Natriuret Pep 860 H, Total Protein 8.2, Albumin 5.0, Globulin 3.2, Albumin/Globulin Ratio 1.6 10/15/24 20:12: Blood Type A Positive, Antibody Screen Negative, Crossmatch (AHG) See Detail 10/15/24 21:00: Urine Color Yellow, Urine Appearance Clear, Urine pH 7.5, Ur Specific [place]ana 1.010, Urine Protein Negative, Urine Glucose (UA) 3+, Urine Ketones Negative, Urine Blood Negative, Urine Nitrate Negative, Urine Bilirubin Negative, Urine Urobilinogen 0.2, Ur Leukocyte Esterase Trace, Urine RBC None, Urine WBC Occasional, Ur Squamous Epith Cells Occasional, Urine Bacteria None 10/15/24 21:45: Blood Type Confirm A Positive 10/15/24 23:12: Troponin I < 0.01 10/16/24 02:30: Hgb 7.9 L, Hct 23.8 L, Troponin I < 0.01 10/16/24 05:49: WBC 4.9, RBC 2.68 L, Hgb 7.9 L, Hct 24.6 L, MCV 91.8, MCH 29.5, MCHC 32.1, RDW 13.7, Plt Count 142 D, MPV 9.9, Neut % (Auto) 64.2, Lymph % (Auto) 21.2, Allen % (Auto) 10.1 H, Eos % (Auto) 3.7, Baso % (Auto) 0.4, Neut # (Auto) 3.1, Lymph # (Auto) 1.0, Allen # (Auto) 0.5, Eos # (Auto) 0.2, Baso # (Auto) 0.0, Sodium 130 L, Potassium 4.8, Chloride 90 L, Carbon Dioxide 31 H, Anion Gap 13.8, BUN 69 H, Creatinine 2.70 H, Estimated Creat Clear 24, Estimated GFR 18 L*, Est GFR ( Amer) 22 L, Glucose 323 H D, Calcium 9.0, Phosphorus 8.1 H, Magnesium 3.6 H, Iron 201 H, TIBC 359, Iron Saturation 55.01447 H, Total Bilirubin 0.5, AST 32, ALT 23, Alkaline Phosphatase 83, Total Protein 6.5, Albumin 3.9 D, Globulin 2.6, Albumin/Globulin Ratio 1.5, Triglycerides 177 H, Cholesterol 157, LDL Cholesterol Direct 48.66 L, VLDL Cholesterol 35, HDL Cholesterol 51, Cholesterol/HDL Ratio 3.1, Vitamin B12 392, Folate 16.10 10/16/24 06:35: POC Glucose 325 H* 10/16/24 11:52: WBC 5.1, RBC 2.87 L, Hgb 8.5 L, Hct 26.5 L, MCV 92.3, MCH 29.6, MCHC 32.1, RDW 13.9, Plt Count 147, MPV 9.5, Neut % (Auto) 72.3, Lymph % (Auto) 15.8, Allen % (Auto) 9.1, Eos % (Auto) 1.8, Baso % (Auto) 0.6, Neut # (Auto) 3.7, Lymph # (Auto) 0.8, Allen # (Auto) 0.5, Eos # (Auto) 0.1, Baso # (Auto) 0.0 10/16/24 12:03: POC Glucose 96 I & O for Labs for Last 24 Hours: Intake & Output 10/13/24 10/14/24 10/15/24 10/16/24 23:59 23:59 23:59 23:59 Intake Total 0 / 0 510 / 510 Output Total 700 / 700 1150 / 1150 Balance -700 / -700 -640 / -640 Weight 68.266 kg 70.307 kg Constitutional: Present no acute distress and cooperative Head: Present atraumatic Eyes: Present as per HPI ENT: Present normal exam Neck: Present normal inspection and full ROM Respiratory: Present CTA bilaterally, able to speak in complete sentences and symmetric chest movement Cardiac: Present Irregularly Regular GI: Present soft and normal bowel sounds; Absent distention or tenderness Rectal (female): Present deferred (female): Present deferred Extremities: Present normal inspection and full ROM Skin: Present intact and dry Neuro: Present alert, awake and oriented x 3 Assessment and Plan *Assessment and plan (1) Symptomatic anemia: Status: Acute Category: Medical Code(s): D64.9 - Anemia, unspecified (2) Generalized weakness: Status: Acute Category: Medical Code(s): R53.1 - Weakness (3) Syncope: Status: Acute Category: Medical Code(s): R55 - Syncope and collapse (4) CKD (chronic kidney disease): Status: Acute Category: Medical Code(s): N18.9 - Chronic kidney disease, unspecified (5) Murmur: Status: Acute Category: Medical Code(s): R01.1 - Cardiac murmur, unspecified (6) CAD (coronary artery disease): Status: Chronic Qualifiers: Coronary Disease-Associated Artery/Lesion type: [place] artery [place] vs. transplanted heart: [place] heart Associated angina: without angina Qualified Code(s): I25.10 - Atherosclerotic heart disease of [place] coronary artery without angina pectoris Category: Medical Code(s): I25.10 - Atherosclerotic heart disease of [place] coronary artery without angina pectoris (7) DM (diabetes mellitus): Status: Chronic Qualifiers: Diabetes mellitus type: type 2 Diabetes mellitus complication status: without complication Diabetes mellitus mcfp insulin use: without mcfp use Qualified Code(s): E11.9 - Type 2 diabetes mellitus without complications Category: Medical Code(s): E11.9 - Type 2 diabetes mellitus without complications (8) PAD (peripheral artery disease): Status: Chronic Category: Medical Code(s): I73.9 - Peripheral vascular disease, unspecified Plan Ms. Cedric Carrillo is a 64-year-old female who came to the emergency room after a presyncopal episode at home. She denies falling or injury. This is her second syncopal episode in the past month.Workup was done in the emergency department and patient was found to be bradycardic, heart rate 57. She also was found to be anemic hemoglobin 8.1. She was given 1 unit packed red blood cells, which she did not respond to repeat hemoglobin 7.9. Patient overall feels well today but still complains of intermittent shortness of breath and lightheadedness. She cannot specify if there is something that brings it on. She does state that she sees cardiology here in her Coreg was recently increased from 12.5 twice daily to 25 twice daily. She did have echo on 09/18 but showed an EF of 60%. Chest x-ray is unremarkable. #Symptomatic anemia #Generalized weakness #Syncope ? Patient did have repeat CBC this afternoon, hemoglobin is 8.5. Patient also had iron studies with a normal ferritin, TIBC, folate, B12 levels, reticulocyte count. Appears that patient's baseline hemoglobin is 10. ?Weakness may be related to increasing Coreg. Will hold carvedilol. ?Patient is on continuous cardiac telemetry. Patient has a known murmur, states its benign. ?Physical exam does not show volume overload, no edema, lungs CTA, chest x-ray negative. ?PT OT evaluation today. #CKD ? Patient has an appointment in [place] with Dr. Egan inspection manager, for CKD evaluation. It appears patient's kidney function has been elevated over the past several months. Kidney function this morning BUN 69, creatinine 2.7. ?This could be clinically related to her anemia. #PAD - on DAPT, pad pci over 1 year ago, discontinue until eitiology of anemia desc ribed - if no active blood loss would benefit from xarelto 2.5 bid and asa #COPD ?Patient's O2 saturation has been above 92% on room air. - Inhalers - BiPAP at night prn #Diabetes, type II ?ACHS fingersticks, sliding scale insulin ordered. #RLS - Continue ropinerole Full code Regular diet VTE?SCDs Ambulate as tolerated tolerated
--- NOTE | 2024-10-16 15:57 | PC.NURSE ---
AOX4, PLACED ON 2LNC THIS MORNING R/T SOB WITH EXERTION. HAVE SINCE WEANED O2 SUPPORT TO 1LNC. PT APPEARS COMFORTABLE. CURRENTLY RESTING IN BED WITH FAMILY AT BEDSIDE. BESIDE COMMODE WITH ASSISTANCE FOR ELIMINATION.
[2024-10-16 15:59] LABS: POC Glucose,Bedside 203 (70-110)
[2024-10-16] MEDS: PAT OWN MED ***DULOXETINE 60 MG 1 EACH PO (21:06)
[2024-10-16] MEDS: PAT OWN MED ***ATORVASTATIN 20MG 20 MG PO (21:06)
[2024-10-16] MEDS: ROPINIROLE 1 MG PO (21:16)
[2024-10-16 23:05] LABS: Occult Blood,Stool Positive (Negative)
[2024-10-17] VITALS (10 sets, daily range): BP systolic 134–170; BP diastolic 51–71; PULSE 72–108; RESP 16–22; TEMP 36.4–36.8; O2SAT 92–97; BMI 26.5
[2024-10-17 00:28] LABS: POC Glucose,Bedside 86 (70-110)
--- NOTE | 2024-10-17 00:28 | CT_ITS ---
PROCEDURE INFORMATION: Exam: CT Head Without Contrast Exam date and time: 10/17/2024 12:50 AM Age: 64 years old Clinical indication: Stroke-like symptoms; Altered mental status/memory loss; Additional info: CVA TECHNIQUE: Imaging protocol: Computed tomography of the head without contrast. Radiation optimization: All CT scans at this facility use at least one of these dose optimization techniques: automated exposure control; mA and/or kV adjustment per patient size (includes targeted exams where dose is matched to clinical indication); or iterative reconstruction. Other technique: STROKE PROTOCOL was implemented. COMPARISON: CT HEAD/BRAIN WO CON 10/15/2024 8:18 PM FINDINGS: Brain: Chronic microvascular ischemic disease without acute intraparenchymal hemorrhage and no obvious acute ischemic stroke. No intra-or extra-axial fluid collection, no supra-or infratentorial mass, no mass effect or midline shift. Cerebral ventricles: Mildly prominent ventricles, sulci and basal cisterns without evidence of hydrocephalus. Paranasal sinuses: No significant mucoperiosteal thickening in the visualized paranasal sinuses. Mastoid air cells: No mastoid effusion. Bones: Visualized skull bones are grossly normal. Soft tissues: NA IMPRESSION: 1. Chronic microvascular disease and generalized atrophy without acute intracranial abnormality. 2. No evidence of acute hemorrhage, mass lesion or obvious acute ischemic infarction. ASSESSMENT: ASPECTS ([place] Stroke Program Early CT Score) is 10. COMMENTS: 1. Possibility of early and/or small acute/subacute ischemic infarct cannot be excluded on a CT scan. Recommend followup with MRI if persistent/worsening focal neurological deficits. 2. Suboptimal study due to extensive motion artifact.
--- NOTE | 2024-10-17 01:06 | PC.NURSE ---
Pt was found standing with a blank look on her face at her bedside. Told the tech that she was trying to help them out. Pt was able to tell the tech her name and date when asked. Two techs got the pt to the bedside commode. At that time the pt started saying strange things, started having hallucinations of men in the room. Nurse was called to the room. V/s were taken, nothing out of normal limits. blood glucose taken=88. Pt is on 1LNC, and was increased to 2LNC while on bedside commode. When asked orientation questions again, pt became completely disoriented x4. Pt stated her name was arvind, jesse, deanna and andrew. Pt couldn't tell the nurse her date or name. Pt's pupils were PEARRL. Pt had equal strength in extremities. Pt began to have word salad, slurred speech, repeating words x3. Pt stated her bp was probably high because naked men were in her room and she was having sex. Pt began having a slight facial droop on the left side. Pt was able to smile without a droop present. pt denied and numbess or tingling to face or extremities. Provider notified. Ct of head placed, ABG's placed.
[2024-10-17 01:16] LABS: ABG HCO3 22.5 mmhg (22.0-26.0); ABG PCO2 36.2 mmhg (35.0-45.0); ABG PH 7.41 mmol/L (7.35-7.45); ABG PO2 57.7 mmhg (80-100); ABG TCO2 23.6 mmhg (23-27)
[2024-10-17 01:18] LABS: Source Left Radial
--- NOTE | 2024-10-17 03:18 | PC.NURSE ---
Provider notified at 0256. Pt was caught with a device in her bed. Upon inspection and questioning of pt, the pt stated it was her pain pump with morphine in it. Pain pump has been locked up, provider notified and stated he would let incoming physician aware. Pt also had medications in her drawer at bedside that were not locked up. She stated her put them in there. Pt did not come in with these medication last night upon admission. Pt's brought them in during the day. All medications from home are locked up in her line lead her room.
--- NOTE | 2024-10-17 05:07 | PC.NURSE ---
Pt is starting to come out of it. Pt was able to tell nurse her name and date correctly. v/s, alert to self only at this moment. Pt required 3LNC since episode of AMS, satting in low 90's. Blood sugar monitored. AMS monitored. Plan of care ongoing.
[2024-10-17] MEDS: humaLOG 100 UNITS/ML 10ML VIAL (SSI) SUBCUT (05:33)
[2024-10-17 05:36] LABS: POC Glucose,Bedside 168 (70-110)
[2024-10-17] MEDS: VILANTEROL IH (06:16)
[2024-10-17] MEDS: UMECLIDINIUM IH (06:16)
[2024-10-17 08:38] LABS: Hematocrit 24.5 % (37.0-47.0); Hemoglobin 8.3 g/dL (12.2-16.2); Immature Granulocytes % 0.4 %; Mean Corpuscular HGB Conc 33.9 g/dL (31.8-35.4); Mean Corpuscular Hemoglobin 30.9 pg (27.0-31.2); Mean Corpuscular Volume 91.1 fl (81-99); Nucleated Red Blood Cells % 0 %; Platelet Count 145 K/mm3 (142-424); Red Blood Count 2.69 M/mm3 (4.20-5.40); Red Cell Distribution Width-SD 46.1 fL; White Blood Count 8.5 K/mm3 (4.8-10.8)
[2024-10-17 08:51] LABS: Alanine Aminotransferase 38 U/L (12-78); Albumin Level 4.5 g/dl (3.5-5.0); Albumin/Globulin Ratio 1.6 (1.1-1.8); Alkaline Phosphatase 97 U/L (38-126); Aspartate Amino Transferase 57 U/L (14-36); Bilirubin,Total 0.6 mg/dl (0.2-1.3); Blood Urea Nitrogen 63 mg/dl (7-17); Calcium 8.8 mg/dl (8.4-10.2); Carbon Dioxide 31 mmol/L (22.0-30.0); Creatinine Clearance Estimated 25 mL/min (50-200); Creatinine,Serum 2.50 mg/dl (0.52-1.04); Estimated Glomerular Filt Rate 19 ml/min (>60); GFR (African American) 24 ML/MIN (>60); Globulin 2.9 g/dL (1.3-3.2); Potassium 5.7 mmoL/L (3.5-5.1); Sodium 133 mmol/L (136-145); Total Protein,Serum 7.4 g/dl (6.3-8.2)
[2024-10-17 08:54] LABS: POC Glucose,Bedside 167 (70-110)
--- NOTE | 2024-10-17 09:17 | XR_ITS ---
FINAL REPORT CLINICAL HISTORY: shortness of breath COMPARISON: 10/15/2024 FINDINGS: The heart size is normal. The mediastinum is normal. There is no focal infiltrate or edema. Mild chronic changes are noted in the lung bases. There are no pleural effusions. There is no pneumothorax. There is no osseous abnormality. IMPRESSION: No acute cardiopulmonary process Reviewed, Interpreted and Dictated by Tani Reddy MD Transcribed by Marlen Jeffery Authenticated and [facility]
--- NOTE | 2024-10-17 09:44 | [facility].PROCNOTE ---
[facility] Procedure Note Date: 10/17/24 Time: 08:55 Procedure Note:: Patient is a pleasant 64-year-old female who [facility]. Today she rates her pain a 0 out of 10. Patient's spouse is present for this consult. Patient is presenting very giddy and confused while we were present at today's visit. Her did discuss with those that this is a new change from even yesterday. He states she was not confused like this prior. Patient was just filled with her pump medication of morphine 5 mg/mL with a daily dose of 1.1132 mg/day on this past Tuesday and he did state that there were no issues up until Tuesday. He states he does not necessarily think it is related to the pump. He states that he had to end up going to [place] for evaluation for cataract surgery and it was when they got back home she started having some dizziness and syncopal episodes and other related symptoms. He states that he did present to the hospital and she was admitted. He does state that she has recently been increased on her blood pressure medication. Patient states that he has not seen her like this before. Physical Exam: General: Alert and oriented x3, no acute distress, pleasant and cooperative Lungs: Respirations even and unlabored, symmetrical chest expansion Eyes: PERRL Musculoskeletal: Flexion and extension of lumbar [spine] somewhat guarded secondary to pain, [antalgic gait noted] Neurological: Speech clear, no gross sensory deficit Informed consent was obtained and the risk and benefits of the procedure were explained to the patient. Patient did have noninvasive monitoring was placed including noninvasive blood pressure cuff and pulse oximeter. Patient's pump was interrogated and was reprogrammed to morphine 0.02 mg/day. The patient tolerated the procedure well with no complications. Patient tolerated the procedure well with no complications. I did discuss with the patient and her spouse because the pump is an older system there is always the chance that it could be malfunctioning and needs replacement however being admitted with acute kidney injury and other symptoms it may be unrelated to the pump. Patient did not exhibit any signs of altered mental status until 3 days later following her pump increase of 10%. I do believe if it was more pump related that she would have had symptoms sooner. I did explain to the spouse that due to the fact of her extreme confusion this morning that I did put her to minimal flow as a precaution to rule out the pump being part of the issue. Patient at her last pump refill had no discrepancies in her pump medication. We will continue to monitor her inpatient status. Patient's spouse was consulted to contact us with any additional concerns and that we would check in with him later on today. We will see the patient back in the clinic at the next intrathecal refill. Patient has been instructed to contact the clinic with any concerns before the next appointment. Dr. Velasquez has reviewed this note and agrees with this plan of care. This note was dictated using voice recognition software and make contain errors or omissions. -- It Is medically necessary for this patient to continue to have their intrathecal pump refilled at regular intervals. This patient had an intrathecal pain pump implanted after meeting criteria of chronic intractable pain for greater than 3 months and failing conservative treatments. Patient has committed and been compliant to the treatment plan and all planned follow up care. Since implantation of the intrathecal pain pump, the patient has had decreased pain and been more functional. Oral medications have been reduced including intake of oral opioids. Patient continues to do well with intrathecal therapy with decrease in pain symptoms and increase in functional status. Stopping intrathecal medications can lead to life threatening withdrawal, seizures, cardiac arrest, severe pain, and possible . Pumps that are not refilled at regular intervals can be damages and cause and need for replacement. We continually titrate dose and concentration to optimize pain relief and function. We are limited in concentration for certain drugs to safely deliver medications through the pump and stay within the recommendations from the Polyanalges[employer] Consensus Committee Guidelines. Depending on dose and concentration these pumps may need to be refilled sooner than 3 months as we titrate. A UDS is needed to verify patient's compliance with our office pain contract. This is ordered based off specific treatments related to chronic pain with the potential to abuse certain medications.
--- NOTE | 2024-10-17 10:18 | P.PN_ITS ---
<Statement entered by Naveen Fisher MD - 10/17/24 13:58> Rounded on patient after nurse practitioner. Personally examined and interviewed patient. Agree with exam findings and care plan as documented. Subjective *Date: 10/17/24 *Time: 12:55 Interval history: Patient up in bed, very clearly confused. Patient unable to tell me who she is, where she is. states that this started happening last night. CT of head was negative. Medical Exam Vital signs and Labs for Last 24 Hours: Vital Signs Temp Pulse Pulse Pulse Pulse Pulse Resp 10/17/24 08:00 80 10/17/24 08:00 97.6 F 73 17 10/17/24 06:35 10/17/24 06:20 10/17/24 05:00 10/17/24 04:00 90 10/17/24 03:59 98.1 F 88 16 10/17/24 03:00 10/17/24 01:00 10/17/24 00:00 80 10/17/24 00:00 97.8 F 76 18 10/16/24 23:00 10/16/24 20:32 10/16/24 20:00 70 10/16/24 20:00 10/16/24 20:00 98.7 F 72 22 10/16/24 18:17 10/16/24 17:00 10/16/24 16:00 70 10/16/24 16:00 98.8 F 65 20 10/16/24 15:00 10/16/24 13:00 10/16/24 12:00 98.2 F 80 18 10/16/24 11:02 71 75 76 10/16/24 11:00 BP BP BP BP Pulse Ox O2 Del Method O2 Flow Rate 10/17/24 08:00 10/17/24 08:00 147/70 H 96 Nasal Cannula 3 10/17/24 06:35 Nasal Cannula 3 10/17/24 06:20 94 L Nasal Cannula 3 10/17/24 05:00 Nasal Cannula 3 10/17/24 04:00 10/17/24 03:59 147/66 H 93 L Nasal Cannula 3 10/17/24 03:00 Nasal Cannula 3 10/17/24 01:00 Nasal Cannula 1 10/17/24 00:00 10/17/24 00:00 162/60 H 95 Nasal Cannula 2 10/16/24 23:00 Nasal Cannula 1 10/16/24 20:32 Nasal Cannula 1 10/16/24 20:00 10/16/24 20:00 Nasal Cannula 1 10/16/24 20:00 140/69 94 L Nasal Cannula 2 10/16/24 18:17 Nasal Cannula 2 10/16/24 17:00 Nasal Cannula 2 10/16/24 16:00 10/16/24 16:00 158/54 H 90 L Nasal Cannula 1 10/16/24 15:00 Nasal Cannula 2 10/16/24 13:00 Nasal Cannula 2 10/16/24 12:00 151/67 H 93 L Room Air 10/16/24 11:02 139/51 L 136/48 L 139/68 10/16/24 11:00 Room Air Intake and Output 10/16/24 10/17/24 10/17/24 23:59 07:59 15:59 Intake Total 300 / 1050 240 / 240 Output Total 1800 / 3150 500 / 500 Balance -1500 / -2100 -260 / -260 Intake: Intake, Oral Amount 300 / 1050 240 / 240 Output: Output, Urine Amount 1800 / 3150 500 / 500 Other: Number of Bowel Movements 1 1 Weight 67.948 kg Patient Weight 10/17/24 23:59 Weight 67.948 kg Laboratory Results - last 24 hr 10/15/24 20:12: Crossmatch (AHG) See Detail 10/16/24 05:49: Folate 16.10 10/16/24 06:35: POC Glucose 325 H* 10/16/24 11:52: WBC 5.1, RBC 2.87 L, Hgb 8.5 L, Hct 26.5 L, MCV 92.3, MCH 29.6, MCHC 32.1, RDW 13.9, Plt Count 147, MPV 9.5, Neut % (Auto) 72.3, Lymph % (Auto) 15.8, Hill % (Auto) 9.1, Eos % (Auto) 1.8, Baso % (Auto) 0.6, Neut # (Auto) 3.7, Lymph # (Auto) 0.8, Hill # (Auto) 0.5, Eos # (Auto) 0.1, Baso # (Auto) 0.0 10/16/24 12:03: POC Glucose 96 10/16/24 15:46: POC Glucose 203 H 10/16/24 21:12: POC Glucose 167 H 10/16/24 22:45: Stool Occult Blood Positive A 10/17/24 00:03: POC Glucose 86 10/17/24 01:00: Specimen Source Left radial, O2 % 2lnc, ABG pH 7.41, ABG pCO2 36.2, ABG pO2 57.7 L, ABG HCO3 22.5, ABG Total CO2 23.6, ABG O2 Saturation 89 L, ABG Base Excess -2.1, Daniele Test Acceptable 10/17/24 05:29: POC Glucose 168 H 10/17/24 08:31: WBC 8.5 D, RBC 2.69 L, Hgb 8.3 L, Hct 24.5 L, MCV 91.1, MCH 30.9, MCHC 33.9, RDW 14.0, Plt Count 145, MPV 9.0, Neut % (Auto) 81.1 H, Lymph % (Auto) 7.8 L, Hill % (Auto) 8.4, Eos % (Auto) 1.9, Baso % (Auto) 0.4, Neut # (Auto) 6.9, Lymph # (Auto) 0.7, Hill # (Auto) 0.7, Eos # (Auto) 0.2, Baso # (Auto) 0.0 I & O for Labs for Last 24 Hours: Intake & Output 10/14/24 10/15/24 10/16/24 10/17/24 23:59 23:59 23:59 23:59 Intake Total 0 / 0 810 / 1050 240 / 240 Output Total 700 / 700 2950 / 3150 500 / 500 Balance -700 / -700 -2140 / -2100 -260 / -260 Weight 68.266 kg 70.307 kg 67.948 kg Constitutional: Present mild distress, disheveled and agitated Head: Present atraumatic Eyes: Present eye discharge (Clear) ENT: Present normal exam Neck: Present normal inspection and full ROM Respiratory: Present CTA bilaterally, normal respiratory effort, able to speak in complete sentences and symmetric chest movement Cardiac: Present Reg Rate and Rhythm GI: Present soft and normal bowel sounds; Absent distention or tenderness Rectal (female): Present deferred (female): Present deferred Extremities: Present normal inspection and full ROM Skin: Present intact and dry Neuro: Present Weakness and awake Assessment and Plan *Assessment and plan (1) Symptomatic anemia: Status: Acute Category: Medical Code(s): D64.9 - Anemia, unspecified (2) Generalized weakness: Status: Acute Category: Medical Code(s): R53.1 - Weakness (3) Syncope: Status: Acute Category: Medical Code(s): R55 - Syncope and collapse (4) CKD (chronic kidney disease): Status: Acute Category: Medical Code(s): N18.9 - Chronic kidney disease, unspecified (5) Murmur: Status: Acute Category: Medical Code(s): R01.1 - Cardiac murmur, unspecified (6) CAD (coronary artery disease): Status: Chronic Qualifiers: Associated angina: without angina Coronary Disease-Associated Artery/Lesion type: false pass artery [place] vs. transplanted heart: false pass heart Qualified Code(s): I25.10 - Atherosclerotic heart disease of false pass coronary artery without angina pectoris Category: Medical Code(s): I25.10 - Atherosclerotic heart disease of false pass coronary artery without angina pectoris (7) DM (diabetes mellitus): Status: Chronic Qualifiers: Diabetes mellitus complication status: without complication Diabetes mellitus ad terminal makeup operator insulin use: without residential use Diabetes mellitus type: type 2 Qualified Code(s): E11.9 - Type 2 diabetes mellitus without co mplications Category: Medical Code(s): E11.9 - Type 2 diabetes mellitus without complications (8) PAD (peripheral artery disease): Status: Chronic Category: Medical Code(s): I73.9 - Peripheral vascular disease, unspecified (9) Acute metabolic encephalopathy: Status: Acute Category: Medical Code(s): G93.41 - Metabolic encephalopathy Plan Ms. Pendleton is a 64-year-old female who came to the emergency room after a presyncopal episode at home. She denies falling or injury. This is her second syncopal episode in the past month.Workup was done in the emergency department and patient was found to be bradycardic, heart rate 57. She also was found to be anemic hemoglobin 8.1. She was given 1 unit packed red blood cells, which she did not respond to repeat hemoglobin 7.9. Patient overall feels well today but still complains of intermittent shortness of breath and lightheadedness. She cannot specify if there is something that brings it on. She does state that she sees cardiology here in her Coreg was recently increased from 12.5 twice daily to 25 twice daily. She did have echo on 09/18 but showed an EF of 60%. Chest x-ray is unremarkable. #Symptomatic anemia #Generalized weakness #Syncope ? Patient did have repeat CBC this afternoon, hemoglobin is 8.5. Patient also had iron studies with a normal ferritin, TIBC, folate, B12 levels, reticulocyte count. Appears that patient's baseline hemoglobin is 10. ?Weakness may be related to increasing Coreg. Will continue to hold. ?Patient is on continuous cardiac telemetry. Patient has a known murmur, states its benign. ?Physical exam does not show volume overload, no edema, lungs CTA, chest x-ray negative. ?PT OT evaluation today. Recommendations that patient can return home at discharge. ?Patient seen by GI today, plans for colonoscopy tomorrow. Patient had colonoscopy in [address] Kelsey that was poor bowel preparation and recommended a repeat colonoscopy DEONTE. She does have a history of polyps, last successful colonoscopy was in [address] Parsons. #DDD #Intrathecal pain pump #Metabolic encephalopathy ?Patient became increasingly confused overnight. Patient had head CT which was negative. Stroke assessment performed, no acute findings. ?After discussion with family and more in-depth chart review, patient found to have a intrathecal pain pump with morphine. Patient has had the pain pump for approximately 4 years. she recently has had multiple increases in her morphine dosage a 10% increase in August and another 10% increase at the end of September. Pain management was consulted and does not believe that the pain pump would have a effect on patient's mentation, but does state that the pain pump is a older version that sometimes has problems. They did decrease the morphine dosage in the pain pump significantly this morning. ?Patient also takes gabapentin 600 mg 3 times daily, hold for now. ?Repeat chest x-ray this morning which I personally reviewed, shows no acute fin dings. #CKD ? Patient has an appointment in [place] with Dr. Egan lab tester, for CKD evaluation. It appears patient's kidney function has been elevated over the past several months. Kidney function this morning BUN 63, creatinine 2.5. ?This could be clinically related to her anemia. #PAD - on DAPT, pad pci over 1 year ago, discontinue until eitiology of anemia described - if no active blood loss would benefit from xarelto 2.5 bid and asa, patient states she is unable to afford Xarelto. #COPD ? Patient's O2 saturation has been above 92% on room air. ? Patient was placed on 2 L nasal cannula last night due to increased feelings of shortness of breath. Will continue to wean to main O2 saturation above 92%. #Diabetes, type II ?ACHS fingersticks, sliding scale insulin ordered. #RLS - Continue ropinerole Full code Regular diet VTE?SCDs Ambulate as tolerated tolerated
[2024-10-17 10:27] LABS: Microscopic, Urine URINE MICROSCOPIC (MICROSCOPIC)
[2024-10-17 10:30] LABS: Bilirubin,Urine Negative (Negative); Color,Urine YELLOW (Yellow); Glucose,Urine (UA) 1+ (Negative); Ketones,Urine Negative (Negative); Leukocyte Esterase,Urine Negative (Negative); PH,Urine 7.5 (5.0-8.5); Protein,Urine TRACE (Negative); Specific Gravity, Urine 1.010 (1.005-1.030); Urobilinogen,Urine 0.2 EU/dl (0.2)
[2024-10-17 10:44] LABS: Lactate Venous 1.6 mmol/L (0.4-2.0); VBG HCO3 25.5 mmol/L (23-30); VBG PCO2 38.8 mmol/L (35-51); VBG PH 7.44 mmol/L (7.31-7.41); VBG PO2 100.4 mmol/L (28-40)
[2024-10-17 10:51] LABS: Bacteria,Urine Trace /lpf; Squamous Epithelial Cell,Urine Occasional #/hpf (0-5); WBC,Urine Occasional #/hpf (0-3)
[2024-10-17 11:01] LABS: Anion Gap 16.7 mEq/L (5-15); Chloride 91 mmol/L (98-107)
[2024-10-17] MEDS: LOKELMA 5GM PACKET 10 GM PO (11:56)
[2024-10-17] MEDS: ROPINIROLE 1 MG 0.5 MG PO (12:03)
[2024-10-17 12:19] LABS: POC Glucose,Bedside 120 (70-110)
[2024-10-17 13:52] LABS: Glucose 85 mg/dl (74-100)
--- OUTSIDE RECORDS SUMMARY | 2024-10-17 14:55 | XMS_ITS | Encounter Summary ---
Author Organization Healthcare Address [address] [place] [address] Care Team Providers Care Catering Staff Member Name Role Phone Tin Cutler MD Primary Care Provider [phone] Reason for Referral * Consultation (Routine) - Authorized Specialty Diagnoses / Procedures Referred By Naresh croft Referred To Contact Nephrology Diagnoses Acute renal failure, unspecified acute renal failure type (CMS/HCC) Fiorella Nichols APRN [address] [address] Phone: tel: fax: [facility] Nephrology, Bone & Mineral Metabolism [address], [address] [place] [address] Phone: tel: fax: Referral ID Status Reason Start Date Expiration Date Visits Requested Visits Authorized [id number] Authorized Specialty Services Required 10/03/2024 04/04/2026 1 1 Encounter Details Date Type Department Care Team ([facility] st Contact Info) Description 10/03/2024 Community Orders Community Practice [address] [place] [address] Fiorella Nichols APRN [address] [address] Acute renal failure, unspecified acute [...] Description 10/24/2024 4:00 PM EDT Office Visit [facility] Nephrology, Bone & Mineral Metabolism [address], [address] [place] [address] Eagle Egan MD [address] [place] [address] Scheduled Referrals Name Type Priority Associated Diagnoses Orde r Schedule Ambulatory referral to Nephrology Outpatient Referral Routine Acute renal failure, unspecified acute renal failure type (CMS/HCC) Expected: 10/10/2024, Expires: 04/06/2026 documented as of this encounter Visit Diagnoses Diagnosis Acute renal failure, unspecified acute renal failure type (CMS/HCC)- Primary documented in this encounter Care Teams Catering Staff Member Relationship Specialty Start Date End Date Tin Cutler MD [address] [place] [address] PCP - General 08/29/20 documented as of this encounter
--- OUTSIDE RECORDS SUMMARY | 2024-10-17 14:55 | XMS_ITS | Encounter Summary ---
Author Organization Healthcare Address [address] [place] [address] Care Team Providers Care Kindergartner Name Role Phone Tin Cutler MD Primary Care Provider [phone] Encounter Details Date Type Department Care Team ([facility] Contact Info) Description 10/09/2024 Orders Only [facility] [address] [place] [address] Solange Brothers SOCORRO (acute kidney injury) (CMS/FORMERLY [facility]) (Primary Dx); Vitamin D insufficiency Social History [...] Upcoming Encounters Date Type Department Care Team ([facility] Contact Info) Description 10/24/2024 4:00 PM EDT Office Visit [facility] Nephrology, Bone & Mineral Metabolism [address], [address] [place] [address] Eagle Egan MD [address] [place] [address] Scheduled Orders Name Type Priority Associated Diagnoses Orde r Schedule Renal Function Panel, Plasma Lab Routine SOCORRO (acute kidney injury) (CMS/HCC) Expected: 10/09/2024 (Approximate), Expires: 04/10/2026 CBC W/O Differential Lab Routine SOCORRO (acute kidney injury) (CMS/HCC) Expected: 10/09/2024 (Approximate), Expires: 04/10/2026 Vitamin D 25 Hydroxy Lab Routine SOC[place]RO (acute kidney injury) ([facility]) Vitamin D insufficiency Expected: 10/09/2024 (Approximate), Expires: 04/10/2026 PTH Intact Total Lab Routine SOCORRO (acute kidney injury) ([facility]) Vitamin D insufficiency Expected: 10/09/2024 (Approximate), Expires: 04/10/2026 Urinalysis with reflex microscopic (Culture NOT Included) Lab Routine SOCORRO (acute kidney injury) ([facility]) Expected: 10/09/2024 (Approximate), Expires: 04/10/2026 Protein, Random, Urine with Creatinine Lab Routine SOCORRO (acute kidney injury) ([facility]) Expected: 10/09/2024 (Approximate), Expires: 04/10/2026 Creatinine, Random, Urine Lab Routine SOCORRO (acute kidney injury) ([facility]) Expected: 10/09/2024 (Approximate), Expires: 04/10/2026 documented as of this encounter Visit Diagnoses Diagnosis SOCORRO (acute kidney injury) ([facility])- Primary Vitamin D insufficiency documented in this encounter Care Teams Kindergartner Relationship Specialty Start Date End Date Tin Cutler MD [address] [place] [address] PCP - General 08/29/20 documented as of this encounter
--- OUTSIDE RECORDS SUMMARY | 2024-10-17 14:55 | XMS_ITS | Clinical Summary ---
Author Organization Healthcare Address [address] [place] [address] Care Team Providers Care Geology Teacher Name Role Phone Tin Cutler MD Primary Care Provider [phone] Encounters Date Type Department Care Team Description 10/12/2024 Telephone [facility] Nephrology, Bone & Mineral Metabolism [address] [facility], [address] [place] [address] Alize De Anda 10/09/2024 Orders Only [facility] [address] [place] [address] [place] [address] Solange Brothers SOCORRO (acute kidney injury) (CMS/HCC) (Primary Dx); Vitamin D insufficiency 10/03/2024 Community Orders Community Practice [address] [place] [address] Fiorella Nichols APRN Acute renal failure, unspecified acute renal failure type (CMS/HCC) (Primary Dx) from Last 3 Months Family History Medical History Relation Name Comments Conversions - Other Brother 1 CAD (cor onary artery disease), [place] coronary artery Diabetes Brother 2 Thyroid cancer Brother 3 Colon cancer Father Conversions - Other Father CAD (cor onary artery disease), [place] coronary artery Diabetes Father Stroke Father Conversions [...] PM EDT Office Visit [facility] Nephrology, Bone & Mineral Metabolism [address] [facility], [address] [place] [address] Eagle Egan MD [address] [place] [address] Health Maintenance Due Date Last [...] 2011 UKY-Zoster Vaccines (1 of 2) 2011 [id number] Vaccine (3 - season) 2023 04/27/2021, 06/26/2020 [...] to complete this topic Insurance [place] [id number] [facility] MEDICARE Care Teams Geology Teacher Relationship Specialty Start Date End Date Tin Cutler MD [address] [place] [address] [address] PCP - General 08/29/20
--- OUTSIDE RECORDS SUMMARY | 2024-10-17 14:55 | XMS_ITS | Encounter Summary ---
Author Organization [facility] Address [address] [place] [address] Care Team Providers Care Molding Manager Name Role Phone Tin Cutler MD Primary Care Provider [phone] Encounter Details Date Type Department Care Team ([facility] Contact Info) Description 10/12/2024 Telephone [facility] Nephrology, Bone & Mineral Metabolism [address] [facility], [address] [address] Alize De Anda [address] [address] Social History Tobacco Use Types Packs/Day Years [...] Upcoming Encounters Date Type Department Care Team ([facility] Contact Info) Description 10/24/2024 4:00 PM EDT Office Visit [facility] Nephrology, Bone & Mineral Metabolism [address] [place] [address] Eagle Egan MD [address] [place] [address] documented as of this encounter Visit Diagnoses Not on filedocumented in this encounter Care Teams Molding Manager Relationship Specialty Start Date End Date Tin Cutler MD [address] [place] [address] PCP - General 08/29/20 documented as of this encounter
--- OUTSIDE RECORDS SUMMARY | 2024-10-17 14:55 | XMS_ITS | Encounter Summary ---
Author Organization Healthcare Address [address] [place] [address] Care Team Providers Care Vice President Lending Name Role Phone Tin Cutler MD Primary Care Provider Encounter Details Date Type Department Care Team ([facility] Contact Info) Description 06/15/2024 Orders Only External Location [address] [place] [address] Jess Krishna, CIVIL SERVICE CLERK [address] [facility] [address] [place] [address] Social History Tobacco Use Types Packs/Day Years [...] Description 10/24/2024 4:00 PM EDT Office Visit [facility] Nephrology, Bone & Mineral Metabolism [address] [facility], [address] [place] [address] Eagle Egan MD [address] [place] [address] documented as of this encounter Procedures Procedure Name Priority Date/Time Associated Diagnosis Comments US OUTSIDE IMAGES 06/15/2024 11:08 AM EST documented in this encounter Results * US OUTSIDE IMAGES (06/15/2024 11:08 AM EST) Anatomical Region Laterality Modality Ultrasound 06/15/2024 11:0 8 AM EST us Jess Krishna CIVIL SERVICE CLERK IMG US PROCEDURES Jie l Result documented in this encounter Visit Diagnoses Not on filedocumented in this encounter Care Teams Vice President Lending Relationship Specialty Start Date End Date Tin Cutler MD [address] [place], [place] [address] PCP - General 08/29/20 documented as of this encounter
[2024-10-17] MEDS: ONDANSETRON 4MG/2ML VIAL 4 MG IV (15:43)
--- NOTE | 2024-10-17 16:49 | EXP.GE.CONS ---
History of Present Illness *Admission Date: 10/15/24 *History of present illness: Mrs. Chester is a 64-year-old female who began developing weakness and came to the ED. The patient did have an episode of syncope/unresponsiveness that was very brief. Her brought her to the ED. She has had 2 episodes over the last month. Her CT scan of the brain and chest were normal. She notably had an initial hemoglobin of 8.1. She was also found to be Hemoccult positive. Her hemoglobin and hematocrit after 1 unit of PRBCs was 8.3 and 24.5. This was a decline. Her B12 level was 392 with folate 16.10. I do not see recent iron levels. The patient has had some weight loss. She did have diagnostic evaluation with Ronnie Kelsey MD with EGD and colonoscopy in March 2023. The EGD showed some esophageal dysmotility and moderate chronic gastritis. Her colonoscopy was aborted due to bowel prep. The patient now has tested positive fecal Hemoccult. She does report some gassiness and bloating. She has some early satiety. She has noted some bright red blood on the tissue which she attributes to hemorrhoids. She does state that her father had colon cancer in his 70s. She reports no abdominal pain, change in bowel habits, heartburn, reflux or dysphagia. She reports no nausea or belching. [facility] Disclaimer: The information contained in this section may have been updated after the patient was seen, as this information can be updated by other users. Medical History (Updated 10/17/24 @ 16:55 by Oscar Parsons II, MD) History of smoking 30 or more pack years Acute respiratory failure with hypoxia Pulmonary emphysema Viral syndrome Right carotid bruit Fatigue Exposure to COVID-19 virus Chest pain Hypomagnesemia Subcutaneous nodule of back Angina pectoris Abnormal stress test Dyspnea Dizziness Left carotid bruit Palpitations Diastolic dysfunction Aortic insufficiency Abdominal pain Celiac artery stenosis Surgical History History of right-sided carotid endarterectomy H/O carotid endarterectomy H/O: hysterectomy Hx of cholecystectomy History of colonoscopy Family History Other Family history of cancer Family history of diabetes mellitus type II Social History Smoking Status: Never smoker second hand exposure: No alcohol intake: never substance use type: denies use current occupational status: disabled Travel in the last 8 weeks?: None household members: spouse and family housing: house current occupational exposures/hazards: No caffeine: Yes Have you lived/traveled outside [place] in past 30 days?: No Contact w/someone who lives/traveled outside US past 30 days?: No Exposure to someone with infectious disease in past 14 days?: No Do you have a fever (greater than 100.4 F or 38 C)?: No Have you tested positive for COVID-19?: No Exposed to someone with COVID-19 in past 14 days?: No Do you have a sore throat?: No Do you have a cough?: No Do you have any weakness?: No Do you have any diarrhea?: No Are you experiencing any unusual bleeding?: No Do you have any muscle aches/pain?: No Do you have any abdominal pain?: No Are you experiencing loss of taste or smell?: No Review of Systems *Cardiovascular Cardiovascular: Reports syncope *Neurologic Neurologic: Reports system reviewed and no additional complaints, except as documented, Reports convulsions and Reports syncope Meds Home Medications and Allergies Home Medications ?Medication ?Instructions ?Recorded ?Confirmed ?Type aspirin 81 mg tablet,delayed 81 mg PO DAILY 11/05/20 10/16/24 History release omeprazole 40 mg capsule,delayed 40 mg PO DAILY 11/05/20 10/16/24 History release albuterol sulfate 90 mcg/actuation 2 puff inhalation Q6HP PRN 07/02/21 10/16/24 History aerosol inhaler Shortness Of Breath Or Wheezing gabapentin 600 mg tablet 600 mg PO TID 07/08/22 10/16/24 History duloxetine 60 mg capsule,delayed 60 mg PO DAILY 06/07/24 10/16/24 History release losartan 100 mg tablet 100 mg PO DAILY #30 tabs 08/09/24 10/16/24 Rx atorvastatin 20 mg tablet 20 mg PO DAILY 09/18/24 10/16/24 History clopidogrel 75 mg tablet 75 mg PO DAILY 09/18/24 10/16/24 History magnesium oxide 400 mg PO DAILY 09/18/24 10/16/24 History ropinirole 1 mg tablet 1 mg PO HS 09/18/24 10/16/24 History carvedilol 25 mg tablet (Coreg) 25 mg PO BID #60 tabs 09/26/24 10/16/24 Rx umeclidinium 62.5 mcg-vilanterol 1 inh inhalation DAILY 10/02/24 10/16/24 History 25 mcg/actuation powdr for inhalation (Anoro Ellipta) ropinirole 1 mg tablet 0.5 mg PO DAILY 10/16/24 10/16/24 History New Prescriptions to Start Prescriptions: Allergies Allergy/AdvReac Type Severity Reaction Status Date / Time menthol (From LidoPatch) Allergy Unknown SKIN RASH Verified 10/15/24 19:13 lidocaine AdvReac Unknown SKIN RASH Verified 10/15/24 19:13 Exam (Inpt) Vital signs and Labs for Last 24 Hours: Temp Pulse Resp BP Pulse Ox O2 Del Method O2 Flow Rate 98.1 F 76 18 139/71 97 Nasal Cannula 2 10/17/24 12:00 10/17/24 12:00 10/17/24 12:00 10/17/24 12:00 10/17/24 12:00 10/17/24 15:00 10/17/24 15:00 Laboratory Results - last 24 hr 10/16/24 21:12: POC Glucose 167 H 10/16/24 22:45: Stool Occult Blood Positive A 10/17/24 00:03: POC Glucose 86 10/17/24 01:00: Specimen Source Left radial, O2 % 2lnc, ABG pH 7.41, ABG pCO2 36.2, ABG pO2 57.7 L, ABG HCO3 22.5, ABG Total CO2 23.6, ABG O2 Saturation 89 L, ABG Base Excess -2.1, Daniele Test Acceptable 10/17/24 05:29: POC Glucose 168 H 10/17/24 08:31: WBC 8.5 D, RBC 2.69 L, Hgb 8.3 L, Hct 24.5 L, MCV 91.1, MCH 30.9, MCHC 33.9, RDW 14.0, Plt Count 145, MPV 9.0, Neut % (Auto) 81.1 H, Lymph % (Auto) 7.8 L, Parmer % (Auto) 8.4, Eos % (Auto) 1.9, Baso % (Auto) 0.4, Neut # (Auto) 6.9, Lymph # (Auto) 0.7, Parmer # (Auto) 0.7, Eos # (Auto) 0.2, Baso # (Auto) 0.0, Sodium 133 L, Potassium 5.7 H, Chloride 91 L, Carbon Dioxide 31 H, Anion Gap 16.7 H, BUN 63 H, Creatinine 2.50 H, Estimated Creat Clear 25, Estimated GFR 19 L*, Est GFR ( Amer) 24 L, Glucose 85, Calcium 8.8, Total Bilirubin 0.6, AST 57 H D, ALT 38 D, Alkaline Phosphatase 97, Total Protein 7.4, Albumin 4.5 D, Globulin 2.9, Albumin/Globulin Ratio 1.6 10/17/24 09:08: VBG pH 7.44 H, VBG pCO2 38.8, VBG pO2 100.4 H, VBG HCO3 25.5, VBG Total CO2 26.7, VBG O2 Saturation 97.4 H, VBG Base Excess 1.2, VBG Lactic Acid 1.6 10/17/24 10:20: Urine Color Yellow, Urine Appearance Clear, Urine pH 7.5, Ur Specific [place] 1.010, Urine Protein Trace, Urine Glucose (UA) 1+, Urine Ketones Negative, Urine Blood Negative, Urine Nitrate Negative, Urine Bilirubin Negative, Urine Urobilinogen 0.2, Ur Leukocyte Esterase Negative, Urine RBC None, Urine WBC Occasional, Ur Squamous Epith Cells Occasional, Urine Bacteria Trace 10/17/24 12:01: POC Glucose 120 H I & O for Labs for Last 24 Hours: Intake & Output 10/14/24 10/15/24 10/16/24 10/17/24 23:59 23:59 23:59 23:59 Intake Total 0 / 0 810 / 1050 440 / 440 Output Total 700 / 700 2950 / 3150 1300 / 1300 Balance -700 / -700 -2140 / -2100 -860 / -860 Weight 150 lb 8 oz 155 lb 149 lb 12.8 oz Comments:: Normoactive bowel sounds, soft, nondistended, nontender, benign abdomen Results Labs 10/17/24 08:31 10/17/24 08:31 Labs: Laboratory Results - last 24 hr 10/16/24 21:12: POC Glucose 167 H 10/16/24 22:45: Stool Occult Blood Positive A 10/17/24 00:03: POC Glucose 86 10/17/24 01:00: Specimen Source Left radial, O2 % 2lnc, ABG pH 7.41, ABG pCO2 36.2, ABG pO2 57.7 L, ABG HCO3 22.5, ABG Total CO2 23.6, ABG O2 Saturation 89 L, ABG Base Excess -2.1, Daniele Test Acceptable 10/17/24 05:29: POC Glucose 168 H 10/17/24 08:31: WBC 8.5 D, RBC 2.69 L, Hgb 8.3 L, Hct 24.5 L, MCV 91.1, MCH 30.9, MCHC 33.9, RDW 14.0, Plt Count 145, MPV 9.0, Neut % (Auto) 81.1 H, Lymph % (Auto) 7.8 L, Parmer % (Auto) 8.4, Eos % (Auto) 1.9, Baso % (Auto) 0.4, Neut # (Auto) 6.9, Lymph # (Auto) 0.7, Parmer # (Auto) 0.7, Eos # (Auto) 0.2, Baso # (Auto) 0.0, Sodium 133 L, Potassium 5.7 H, Chloride 91 L, Carbon Dioxide 31 H, Anion Gap 16.7 H, BUN 63 H, Creatinine 2.50 H, Estimated Creat Clear 25, Estimated GFR 19 L*, Est GFR ( Amer) 24 L, Glucose 85, Calcium 8.8, Total Bilirubin 0.6, AST 57 H D, ALT 38 D, Alkaline Phosphatase 97, Total Protein 7.4, Albumin 4.5 D, Globulin 2.9, Albumin/Globulin Ratio 1.6 10/17/24 09:08: VBG pH 7.44 H, VBG pCO2 38.8, VBG pO2 100.4 H, VBG HCO3 25.5, VBG Total CO2 26.7, VBG O2 Saturation 97.4 H, VBG Base Excess 1.2, VBG Lactic Acid 1.6 10/17/24 10:20: Urine Color Yellow, Urine Appearance Clear, Urine pH 7.5, Ur Specific [place] 1.010, Urine Protein Trace, Urine Glucose (UA) 1+, Urine Ketones Negative, Urine Blood Negative, Urine Nitrate Negative, Urine Bilirubin Negative, Urine Urobilinogen 0.2, Ur Leukocyte Esterase Negative, Urine RBC None, Urine WBC Occasional, Ur Squamous Epith Cells Occasional, Urine Bacteria Trace 10/17/24 12:01: POC Glucose 120 H Assessment and Plan *Assessment and plan (1) Symptomatic anemia: Status: Acute Category: Medical Code(s): D64.9 - Anemia, unspecified (2) Positive occult stool blood test: Status: Acute Category: Medical Code(s): R19.5 - Other fecal abnormalities (3) Family history of colon cancer: Status: Acute Category: Medical Code(s): Z80.0 - Family history of malignant neoplasm of digestive organs Plan 1. Anemia with Hemoccult positive stool. She did have symptomatic anemia and possibly ties into her syncope. She had an aborted colonoscopy in March 2023. She does have a strong family history (father) and has had some weight loss. She has noted blood on the stool which may be hemorrhoidal. I am going to check iron studies today and plan diagnostic colonoscopy for the a.m.
[2024-10-17] MEDS: PEG-ELECTROLYTE SOLN 4000ML BOTTLE 4000 ML PO (17:01)
--- NOTE | 2024-10-17 18:51 | PC.NURSE ---
alert but confused t/o shift. refusing bowel prep. family and pt educated on benefits of adequate bowel prep. pt is also refusing lab work ordered for this evening. 2lnc for o2 support. purewick in place.
--- NOTE | 2024-10-17 21:00 | PC.NURSE ---
Pt refused her HS medications, and FSBS. Pt has not drank any of her bowel prep despite encouragement by staff and family.
[2024-10-17 22:30] LABS: Iron 50 ug/dL (37-170)
[2024-10-17 22:39] LABS: Total Iron Binding Capacity 374 ug/dL (265-497)
[2024-10-17 23:05] LABS: Ferritin 116 ng/ml (11.1-264)
[2024-10-18] VITALS (39 sets, daily range): BP systolic 104–193; BP diastolic 44–133; PULSE 83–114; RESP 17–35; TEMP 37–38.9; O2SAT 92–100; BMI 25.7
--- NOTE | 2024-10-18 00:10 | PC.NURSE ---
Pt has become extremely agitated and pt is unable to calm or redirect. Pt is able to tell me her name but cannot answer any other questions asked by family or staff. Pt O2 levels on 2L began at 84%, this nurse did increase O2 to 4L pt sat now 90%, pt BP and HR elevated at this time. Contacted Dr. Stephens to notify of pt changed condition and agitation. new orders for pain and agitation.
[2024-10-18] MEDS: LORazepam 2MG/ML VIAL 1 MG IV (00:19)
[2024-10-18] MEDS: MORPHINE 2MG/ML SYRINGE 2 MG IV (00:19)
[2024-10-18] MEDS: GABAPENTIN 600MG TABLET 600 MG PO (00:20)
--- NOTE | 2024-10-18 01:00 | PC.NURSE ---
Addendum entered by Bernice Matute RN 10/18/24 02:25: Pt placed on one on one observation at 0100 Original Note: Pt did calm down for a few minutes after medications for agitation and pain were given. Pt is now agitated again, refusing care and wont leave her needed O2 mask on, pt is unable to tell me her name, and began having word salad. Contacted Dr. Stephens for further assistance, new orders for additional medications. IM injection given to pt left vastus lateralis. Family member at bedside, and requested to have all 4 bed rails up. This nurse did add mittens for pt safety, as pt has been flailing arms and legs and will not keep venturi mask on. Unable to obtain VS due to pt agitation, Pt glucose is 140. When mask is in place pt O2 stay 94-96%.
[2024-10-18] MEDS: OLANZapine 10 MG VIAL IM (01:11)
--- NOTE | 2024-10-18 02:10 | PC.NURSE ---
Addendum entered by Bernice Matute RN 10/18/24 04:22: 0210: New orders for chest x-ray and ABG Original Note: Pt remains agitated and restless and at times is increasing. Pt breathing noted to be slightly labored and audible wheezes heard, Pt remains on venturi mask @ 15% and sating 88-91%. Contacted Dr. Stephens at this time with concerns. New orders for an additional dose of mediation (see MAR). Pt remains on one on one observation with spouse at bedside.
[2024-10-18 02:15] LABS: POC Glucose,Bedside 140 (70-110)
--- NOTE | 2024-10-18 02:15 | XR_ITS ---
PROCEDURE INFORMATION: Exam: XR Chest Exam date and time: 10/18/2024 2:31 AM Age: 64 years old Clinical indication: Shortness of breath; Additional info: SOB TECHNIQUE: Imaging protocol: Radiologic exam of the chest. Views: 1 view. COMPARISON: CR XR CHEST PORTABLE 10/17/2024 9:15 AM FINDINGS: Lungs: Diffuse increased interstitial and ground-glass opacity is seen bilaterally which may represent mild edema. Chronic interstitial changes are also present. Mild pulmonary vascular prominence. Pleural spaces: Unremarkable. No pleural effusion. No pneumothorax. Heart/Mediastinum: Unremarkable. No cardiomegaly. Bones/joints: Unremarkable. IMPRESSION: Diffuse increased interstitial and ground-glass opacity is seen bilaterally which may represent volume overload and edema.
[2024-10-18] MEDS: LORazepam 2MG/ML VIAL 2 MG IV (02:20)
[2024-10-18] MEDS: SODIUM CHLORIDE 0.9% 10ML VIAL 10 ML IV (02:20)
[2024-10-18 02:57] LABS: ABG HCO3 24.3 mmhg (22.0-26.0); ABG PCO2 41.3 mmhg (35.0-45.0); ABG PH 7.39 mmol/L (7.35-7.45); ABG PO2 59.8 mmhg (80-100); ABG TCO2 25.5 mmhg (23-27)
--- NOTE | 2024-10-18 03:15 | PC.NURSE ---
PT LEFT FLOOR TO GO TO ICU AT THIS TIME
--- NOTE | 2024-10-18 03:42 | PC.NURSE ---
pt arrived to ICU unit from [facility] via bed @03;17
[2024-10-18 03:43] LABS: Hematocrit 27.6 % (37.0-47.0); Immature Granulocytes % 0.5 %; Mean Corpuscular HGB Conc 33.3 g/dL (31.8-35.4); Mean Corpuscular Hemoglobin 30.5 pg (27.0-31.2); Mean Corpuscular Volume 91.4 fl (81-99); Nucleated Red Blood Cells % 0 %; Platelet Count 167 K/mm3 (142-424); Red Blood Count 3.02 M/mm3 (4.20-5.40); Red Cell Distribution Width-SD 46.4 fL; White Blood Count 12.1 K/mm3 (4.8-10.8)
[2024-10-18] MEDS: IPRATROPIUM/ALBUTEROL 3 ML NEB IH ×6 (03:45→22:52)
[2024-10-18] MEDS: METHYLPREDNISOLONE SOD SUCC 40MG VIAL 40 MG IV ×4 (04:02→18:33)
[2024-10-18] MEDS: FUROSEMIDE 20 MG/2 ML VIAL 40 MG IV (04:03)
[2024-10-18 04:04] LABS: Albumin Level 4.9 g/dl (3.5-5.0); Chloride 94 mmol/L (98-107); Potassium 4.3 mmoL/L (3.5-5.1); Sodium 136 mmol/L (136-145)
[2024-10-18 04:07] LABS: Alanine Aminotransferase 49 U/L (12-78); Albumin/Globulin Ratio 1.5 (1.1-1.8); Alkaline Phosphatase 131 U/L (38-126); Anion Gap 20.3 mEq/L (5-15); Aspartate Amino Transferase 68 U/L (14-36); Bilirubin,Total 1.2 mg/dl (0.2-1.3); Carbon Dioxide 26 mmol/L (22.0-30.0); Globulin 3.2 g/dL (1.3-3.2); Total Protein,Serum 8.1 g/dl (6.3-8.2)
[2024-10-18 04:08] LABS: Calcium 9.8 mg/dl (8.4-10.2); Glucose 137 mg/dl (74-100)
[2024-10-18 04:12] LABS: Blood Urea Nitrogen 55 mg/dl (7-17); Creatinine Clearance Estimated 27 mL/min (50-200); Creatinine,Serum 2.20 mg/dl (0.52-1.04); Estimated Glomerular Filt Rate 23 ml/min (>60); GFR (African American) 27 ML/MIN (>60)
[2024-10-18 04:16] LABS: NT Pro Brain Natriuretic Pep. 14100 pg/mL (0-125)
--- NOTE | 2024-10-18 04:23 | PC.NURSE ---
contacted Dr. Stephens at this time and requested he come to bedside to assess pt. Pt noted to have unchanged behavior and remains combative, swinging at staff. Pt continues to attempt to remove O2. Pt breathing and lung sounds are unchanged. RT @ bedside. Pt still requires 15% venturi mask and sats range from 85-90%. Restraints initiated @ 0300 for pt safety, despite all measures taken thus far. Dr. Stephens @ bedside to assess pt. After assessment he advised to transfer pt to ICU for further care. Report given to GABRIEL Bledsoe @ 0249
[2024-10-18 04:33] LABS: Hemoglobin 9.1 g/dL (12.2-16.2)
[2024-10-18 04:43] LABS: Procalcitonin 0.182 ng/mL (0.0-2.0)
[2024-10-18 04:49] LABS: RBC Morphology Normal; Total Cells Counted 100
--- NOTE | 2024-10-18 05:35 | PC.NURSE ---
Pt arrived in ICU @ 0317. Pt continues on vapotherm 25L/50%, current sat 97%. Pt very restless and combative in bed. Soft restraints in place to pt BUE and mits to bilateral hands. Removed every 2 hours to assess skin and circulation. Staff sitting 1 on 1 at bedside with pt and . Pt unable to answer questions at this time. Pupils 2mm, equal and reactive to light. No facial droop or extremity weakness noted. Pt has been NSR to sinus tach on telemetry. Lung sounds diminished with inspiratory/expiratory rhonchi and inspiratory wheezing noted to left upper lobe. Pt NPO.
--- NOTE | 2024-10-18 06:07 | PC.NURSE ---
Pt had not urinated since receiving lasix. Pt bladder scanned- over 660ml. Angelo GUERRA notified. States to insert and anchor de la rosa catheter at this time.
[2024-10-18 06:22] LABS: POC Glucose,Bedside 136 (70-110)
[2024-10-18 06:43] LABS: Microscopic, Urine URINE MICROSCOPIC (MICROSCOPIC)
[2024-10-18] MEDS: BUMETANIDE 1MG/4ML VIAL 2 MG IV (06:59)
[2024-10-18 07:03] LABS: Bilirubin,Urine Negative (Negative); Color,Urine YELLOW (Yellow); Glucose,Urine (UA) TRACE (Negative); Ketones,Urine TRACE (Negative); Leukocyte Esterase,Urine Negative (Negative); PH,Urine 5.5 (5.0-8.5); Protein,Urine TRACE (Negative); Specific Gravity, Urine 1.010 (1.005-1.030); Urobilinogen,Urine 0.2 EU/dl (0.2)
[2024-10-18 07:32] LABS: Bacteria,Urine Trace /lpf; Squamous Epithelial Cell,Urine Occasional #/hpf (0-5)
--- NOTE | 2024-10-18 08:11 | PC.NURSE ---
RESTRAINTS REMOVED PER MD FLORES AT THIS TIME. REMAIN 1:1 OBSERVATION, TECH AT BEDSIDE WITHIN ARMS REACH FOR PT SAFETY.
--- NOTE | 2024-10-18 09:15 | P.CONS_ITS ---
History of Present Illness History of present illness: Ms. Chester is a 64-year-old female with a reported history of COPD CKD CAD presented to the ER 10/15/2024 after an episode of syncope being managed for anemia needing transfusions and pulmonary was called for evaluation management of patient's acute hypoxic resp failure. Greater than [id number] smoking history [facility] Disclaimer: The information contained in this section may have been updated after the patient was seen, as this information can be updated by other users. Medical History (Updated 10/18/24 @ 13:25 by Minda Miller MD) Acute respiratory failure with hypoxia Pneumonia History of smoking 30 or more pack years Pulmonary emphysema Viral syndrome Right carotid bruit Fatigue Exposure to COVID-19 virus Chest pain Hypomagnesemia Subcutaneous nodule of back Angina pectoris Abnormal stress test Dyspnea Dizziness Left carotid bruit Palpitations Diastolic dysfunction Aortic insufficiency Abdominal pain Celiac artery stenosis Surgical History History of right-sided carotid endarterectomy H/O carotid endarterectomy H/O: hysterectomy Hx of cholecystectomy History of colonoscopy Family History Other Family history of cancer Family history of diabetes mellitus type II Social History Smoking Status: Never smoker second hand exposure: No alcohol intake: never substance use type: denies use current occupational status: disabled Travel in the last 8 weeks?: None household members: spouse and family housing: house current occupational exposures/hazards: No caffeine: Yes Have you lived/traveled outside [place] in past 30 days?: No Contact w/someone who lives/traveled outside US past 30 days?: No Exposure to someone with infectious disease in past 14 days?: No Do you have a fever (greater than 100.4 F or 38 C)?: No Have you tested positive for COVID-19?: No Exposed to someone with COVID-19 in past 14 days?: No Do you have a sore throat?: No Do you have a cough?: No Do you have any weakness?: No Do you have any diarrhea?: No Are you experiencing any unusual bleeding?: No Do you have any muscle aches/pain?: No Do you have any abdominal pain?: No Are you experiencing loss of taste or smell?: No Review of Systems Review of Systems Review of systems:: unable to obtain Pulmonology Exam Inpatient Vital signs and Labs for Last 24 Hours: Temp Pulse Resp BP Pulse Ox O2 Del Method O2 Flow Rate 102.1 F H 97 H 35 H 193/62 H 97 Vapotherm 20 10/18/24 08:01 10/18/24 08:01 10/18/24 08:01 10/18/24 08:01 10/18/24 08:01 10/18/24 08:01 10/18/24 08:01 FiO2 40 10/18/24 08:01 Laboratory Results - last 24 hr 10/17/24 08:31: Sodium 133 L, Potassium 5.7 H, Chloride 91 L, Carbon Dioxide 31 H, Anion Gap 16.7 H, BUN 63 H, Creatinine 2.50 H, Estimated Creat Clear 25, E stimated GFR 19 L*, Est GFR ( Amer) 24 L, Glucose 85, Calcium 8.8, Total Bilirubin 0.6, AST 57 H D, ALT 38 D, Alkaline Phosphatase 97, Total Protein 7.4, Albumin 4.5 D, Globulin 2.9, Albumin/Globulin Ratio 1.6 10/17/24 09:08: VBG pH 7.44 H, VBG pCO2 38.8, VBG pO2 100.4 H, VBG HCO3 25.5, VBG Total CO2 26.7, VBG O2 Saturation 97.4 H, VBG Base Excess 1.2, VBG Lactic Acid 1.6 10/17/24 10:20: Urine Color Yellow, Urine Appearance Clear, Urine pH 7.5, Ur Specific [place] 1.010, Urine Protein Trace, Urine Glucose (UA) 1+, Urine Ketones Negative, Urine Blood Negative, Urine Nitrate Negative, Urine Bilirubin Negative, Urine Urobilinogen 0.2, Ur Leukocyte Esterase Negative, Urine RBC None, Urine WBC Occasional, Ur Squamous Epith Cells Occasional, Urine Bacteria Trace 10/17/24 12:01: POC Glucose 120 H 10/17/24 21:35: Iron 50 D, TIBC 374, Iron Saturation 13.76311 L, Ferritin 116 D 10/18/24 02:06: POC Glucose 140 H 10/18/24 02:55: ABG pH 7.39, ABG pCO2 41.3, ABG pO2 59.8 L, ABG HCO3 24.3, ABG Total CO2 25.5, ABG O2 Saturation 88 L, ABG Base Excess -0.7 10/18/24 03:36: WBC 12.1 H D, RBC 3.02 L, Hgb 9.1 L, Hct 27.6 L, MCV 91.4, MCH 30.5, MCHC 33.3, RDW 13.8, Plt Count 167, MPV 9.1, Neut % (Auto) 87.7 H, Lymph % (Auto) 4.8 L, [place] % (Auto) 6.7, Eos % (Auto) 0.1, Baso % (Auto) 0.2, Neut # (Auto) 10.6 H, Lymph # (Auto) 0.6 L, [place] # (Auto) 0.8, Eos # (Auto) 0.0, Baso # (Auto) 0.0, Total Counted 100, Neutrophils % (Manual) 84 H, Lymphocytes % (Manual) 5 L, Monocytes % (Manual) 10 H, Basophils % (Manual) 1.0, Platelet Estimate Normal, RBC Morphology Normal, Sodium 136, Potassium 4.3 D, Chloride 94 L, Carbon Dioxide 26, Anion Gap 20.3 H, BUN 55 H, Creatinine 2.20 H, Estimated Creat Clear 27, Estimated GFR 23 L, Est GFR ( Amer) 27 L, G lucose 137 H D, Calcium 9.8, Total Bilirubin 1.2, AST 68 H, ALT 49 D, Alkaline Phosphatase 131 H, NT-Pro-B Natriuret Pep 53087 H, Total Protein 8.1, Albumin 4.9, Globulin 3.2, Albumin/Globulin Ratio 1.5, Procalcitonin 0.182 10/18/24 06:07: Urine Color Yellow, Urine Appearance Clear, Urine pH 5.5, Ur Specific [place] 1.010, Urine Protein Trace, Urine Glucose (UA) Trace, Urine Ketones Trace, Urine Blood 1+ A, Urine Nitrate Negative, Urine Bilirubin Negative, Urine Urobilinogen 0.2, Ur Leukocyte Esterase Negative, Urine RBC 3-5, Urine WBC None, Ur Squamous Epith Cells Occasional, Urine Bacteria Trace 10/18/24 06:14: POC Glucose 136 H I & O for Labs for Last 24 Hours: Intake & Output 10/15/24 10/16/24 10/17/24 10/18/24 23:59 23:59 23:59 23:59 Intake Total 0 / 0 810 / 1050 440 / 440 0 / 0 Output Total 700 / 700 2950 / 3150 1999 700 / 700 Balance -700 / -700 -2140 / -2100 -1560 / -1560 -700 / -700 Weight 150 lb 8 oz 155 lb 149 lb 12.8 oz 145 lb 1.027 oz Constitutional: Present severe distress Head: Present normocephalic and atraumatic ENT: Present normal exam, normal oropharynx and mucous membranes moist Neck: Present normal inspection and full ROM Respiratory: Present rhonchi; Absent prolonged expiratory phase, wheezes or crackles Cardiac: Present S1/S2, Tachycardia and radial pulses present GI: Present soft and distention; Absent tenderness or guarding Rectal (female): Present deferred (female): Present deferred Skin: Present intact; Absent cyanosis or jaundice Neuro: Present oriented x 3; Absent alert or awake Extremities: Present normal inspection; Absent clubbing or cyanosis Psychiatric: Present unable to assess Meds Home Medications and Allergies Home Medications ?Medication ?Instructions ?Recorded ?Confirmed ?Type aspirin 81 mg tablet,delayed 81 mg PO DAILY 11/05/20 0 10/16/24 History release omeprazole 40 mg capsule,delayed 40 mg PO DAILY 10/16/24 History release albuterol sulfate 90 mcg/actuation 2 puff inhalation Q 6HP PRN 07/02/21 10/16/24 History aerosol inhaler Shortness Of Breath Or Wheez ing gabapentin 600 mg tablet 600 mg PO TID 07/08/2210/16 History duloxetine 60 mg capsule,delayed 60 mg PO DAILY 10/16/24 History release losartan 100 mg tablet 100 mg PO DAILY #30 tabs 10/16/24 Rx atorvastatin 20 mg tablet 20 mg PO DAILY 09/18/2405/12 History clopidogrel 75 mg tablet 75 mg PO DAILY 09/18/2405/12 History magnesium oxide 400 mg PO DAILY 09/18/2405/12 History ropinirole 1 mg tablet 1 mg PO HS 09/18/24 10/16/24 History carvedilol 25 mg tablet (Coreg) 25 mg PO BID #60 tabs 09/26/24 10/16/24 Rx umeclidinium 62.5 mcg-vilanterol 1 inh inhalation JORDAN Y 10/02/24 10/16/24 History 25 mcg/actuation powdr for inhalation (Anoro Ellipta) ropinirole 1 mg tablet 0.5 mg PO DAILY 10/16/2405/12 History New Prescriptions to Start Prescriptions: Allergies Allergy/AdvReac Type Severity Reaction Status Date / Time menthol (From LidoPatch) Allergy Unknown SKIN RASH Verified 10/15/24 19:13 lidocaine AdvReac Unknown SKIN RASH Verified 10/15/24 19:13 Results Laboratory Findings 10/18/24 03:36 10/18/24 03:36 ABG ABG pH 7.39 mmol/L (7.35-7.45) 10/18/24 02:55 ABG pCO2 41.3 mmhg (35.0-45.0) 10/18/24 02:55 ABG pO2 59.8 mmhg (80-100) L 10/18/24 02:55 ABG O2 Saturation 88 % (90-100) L 10/18/24 02:55 Abnormal lab findings: Abnormal Labs 10/15/24 10/15/24 10/16/24 19:20 20:12 02:30 WBC RBC 2.66 L Hgb 8.1 L 7.9 L Hct 24.5 L 23.8 L Neut % (Auto) Lymph % (Auto) [place] % (Auto) Neut # (Auto) Lymph # (Auto) Neutrophils % (Manual) Lymphocytes % (Manual) Monocytes % (Manual) ABG pO2 ABG O2 Saturation VBG pH VBG pCO2 56.1 H VBG pO2 VBG Total CO2 31.6 H VBG O2 Saturation VBG Base Excess 4.2 H Sodium Potassium Chloride 88 L Carbon Dioxide 33 H Anion Gap 20.1 H BUN 70 H Creatinine 2.50 H Estimated GFR 19 L* Est GFR ( Amer) 24 L Glucose 253 H POC Glucose Phosphorus Magnesium Iron Iron Saturation AST 38 H Alkaline Phosphatase NT-Pro-B Natriuret Pep 860 H Triglycerides LDL Cholesterol Direct Urine Blood Stool Occult Blood Crossmatch ([facility]) See Detail 10/16/24 10/16/24 10/16/24 05:49 06:35 11:52 WBC RBC 2.68 L 2.87 L Hgb 7.9 L 8.5 L Hct 24.6 L 26.5 L Neut % (Auto) Lymph % (Auto) [place] % (Auto) 10.1 H Neut # (Auto) Lymph # (Auto) Neutrophils % (Manual) Lymphocytes % (Manual) Monocytes % (Manual) ABG pO2 ABG O2 Saturation VBG pH VBG pCO2 VBG pO2 VBG Total CO2 VBG O2 Saturation VBG Base Excess Sodium 130 L Potassium Chloride 90 L Carbon Dioxide 31 H Anion Gap BUN 69 H Creatinine 2.70 H Estimated GFR 18 L* Est GFR ( Amer) 22 L Glucose 323 H D POC Glucose 325 H* Phosphorus 8.1 H Magnesium 3.6 H Iron 201 H Iron Saturation 55.55471 H AST Alkaline Phosphatase NT-Pro-B Natriuret Pep Triglycerides 177 H LDL Cholesterol Direct 48.66 L Urine Blood Stool Occult Blood Crossmatch ([facility]) 10/16/24 10/16/24 10/16/24 15:46 21:12 22:45 WBC RBC Hgb Hct Neut % (Auto) Lymph % (Auto) [place] % (Auto) Neut # (Auto) Lymph # (Auto) Neutrophils % (Manual) Lymphocytes % (Manual) Monocytes % (Manual) ABG pO2 ABG O2 Saturation VBG pH VBG pCO2 VBG pO2 VBG Total CO2 VBG O2 Saturation VBG Base Excess Sodium Potassium Chloride Carbon Dioxide Anion Gap BUN Creatinine Estimated GFR Est GFR ( Amer) Glucose POC Glucose 203 H 167 H Phosphorus Magnesium Iron Iron Saturation AST Alkaline Phosphatase NT-Pro-B Natriuret Pep Triglycerides LDL Cholesterol Direct Urine Blood Stool Occult Blood Positive A Crossmatch ([facility]) 10/17/24 10/17/24 10/17/24 01:00 05:29 08:31 WBC RBC 2.69 L Hgb 8.3 L Hct 24.5 L Neut % (Auto) 81.1 H Lymph % (Auto) 7.8 L [place] % (Auto) Neut # (Auto) Lymph # (Auto) Neutrophils % (Manual) Lymphocytes % (Manual) Monocytes % (Manual) ABG pO2 57.7 L ABG O2 Saturation 89 L VBG pH VBG pCO2 VBG pO2 VBG Total CO2 VBG O2 Saturation VBG Base Excess Sodium 133 L Potassium 5.7 H Chloride 91 L Carbon Dioxide 31 H Anion Gap 16.7 H BUN 63 H Creatinine 2.50 H Estimated GFR 19 L* Est GFR ( Amer) 24 L Glucose POC Glucose 168 H Phosphorus Magnesium Iron Iron Saturation AST 57 H D Alkaline Phosphatase NT-Pro-B Natriuret Pep Triglycerides LDL Cholesterol Direct Urine Blood Stool Occult Blood Crossmatch ([facility]) 10/17/24 10/17/24 10/17/24 09:08 12:01 21:35 WBC RBC Hgb Hct Neut % (Auto) Lymph % (Auto) [place] % (Auto) Neut # (Auto) Lymph # (Auto) Neutrophils % (Manual) Lymphocytes % (Manual) Monocytes % (Manual) ABG pO2 ABG O2 Saturation VBG pH 7.44 H VBG pCO2 VBG pO2 100.4 H VBG Total CO2 VBG O2 Saturation 97.4 H VBG Base Excess Sodium Potassium Chloride Carbon Dioxide Anion Gap BUN Creatinine Estimated GFR Est GFR ([facility] Amer) Glucose POC Glucose 120 H Phosphorus Magnesium Iron Iron Saturation 13.64176 L AST Alkaline Phosphatase NT-Pro-B Natriuret Pep Triglycerides LDL Cholesterol Direct Urine Blood Stool Occult Blood Crossmatch ([facility]) 10/18/24 10/18/24 10/18/24 02:06 02:55 03:36 WBC 12.1 H D RBC 3.02 L Hgb 9.1 L Hct 27.6 L Neut % (Auto) 87.7 H Lymph % (Auto) 4.8 L [place] % (Auto) Neut # (Auto) 10.6 H Lymph # (Auto) 0.6 L Neutrophils % (Manual) 84 H Lymphocytes % (Manual) 5 L Monocytes % (Manual) 10 H ABG pO2 59.8 L ABG O2 Saturation 88 L VBG pH VBG pCO2 VBG pO2 VBG Total CO2 VBG O2 Saturation VBG Base Excess Sodium Potassium Chloride 94 L Carbon Dioxide Anion Gap 20.3 H BUN 55 H Creatinine 2.20 H Estimated GFR 23 L Est GFR ( Amer) 27 L Glucose 137 H D POC Glucose 140 H Phosphorus Magnesium Iron Iron Saturation AST 68 H Alkaline Phosphatase 131 H NT-Pro-B Natriuret Pep 93594 H Triglycerides LDL Cholesterol Direct Urine Blood Stool Occult Blood Crossmatch ([facility]) 10/18/24 10/18/24 06:07 06:14 WBC RBC Hgb Hct Neut % (Auto) Lymph % (Auto) [place] % (Auto) Neut # (Auto) Lymph # (Auto) Neutrophils % (Manual) Lymphocytes % (Manual) Monocytes % (Manual) ABG pO2 ABG O2 Saturation VBG pH VBG pCO2 VBG pO2 VBG Total CO2 VBG O2 Saturation VBG Base Excess Sodium Potassium Chloride Carbon Dioxide Anion Gap BUN Creatinine Estimated GFR Est GFR ( Amer) Glucose POC Glucose 136 H Phosphorus Magnesium Iron Iron Saturation AST Alkaline Phosphatase NT-Pro-B Natriuret Pep Triglycerides LDL Cholesterol Direct Urine Blood 1+ A Stool Occult Blood Crossmatch ([facility]) Assessment and Plan *Assessment and plan (1) Pneumonia: Status: Acute Category: Medical Code(s): J18.9 - Pneumonia, unspecified organism (2) Acute respiratory failure with hypoxia: Status: Acute Category: Medical Code(s): J96.01 - Acute respiratory failure with hypoxia Plan Ms. Chester is a 64-year-old female with a reported history of COPD CKD CAD presented to the ER 10/15/2024 after an episode of syncope being managed for anemia needing transfusions and pulmonary was called for evaluation management of patient's acute hypoxic resp failure. Greater than [id number] smoking history Patient noted on new oxygen commands on his hospital admission transiently and was eventually weaned to room air. Blood gases since admission did not show any significant evidence of hypercarbic respiratory except for admission blood gas that showed a pH of 7.34 and pCO2 56.1 Chest x-ray from yesterday bilateral lower lobe patchy infiltrates, appear to be worsened from admission chest x-ray. CT chest September 2024 no significant emphysematous changes/interstitial changes noted. Echocardiogram from September 2019 normal LV function. LV diastolic dysfunction. RV size and function within normal limits with estimated RVSP at 30 to 35 mmHg. Worsening leukocytosis. Currently receiving inhalers, nebulization therapies and steroids along with ceftriaxone. Plan: Continue oxygen supplementation to maintain O2 saturation of 90% and above, wean to 3 L nasal cannula this morning from high flow. Change antibiotics to vancomycin and cefepime pending sputum, blood culture results and nasal MRSA PCR DuoNebs every 6 hours and as scheduled basis CT chest without contrast Etiology of patient's altered mental status is not clear at this point of time, possible etiologies including metabolic, infectious, ischemic given her prior CT scan showed questionable small infarcts. Given the limitations in obtaining LP at this point of time the plan was made to reach the pain management to facilitate MRI scan which can evaluate for both possible ischemic stroke and meningitis. If that is not possible then the plan was to get a CTA.
[2024-10-18 09:41] LABS: Adenovirus,PCR Not Detected (NotDetected); Chlamydophila Pneumoniae, PCR Not Detected (NotDetected); Coronavirus 19, PCR Not Detected (NotDetected); Coronovirus HKU1,PCR Not Detected (NotDetected); Influenza A, PCR Not Detected (NotDetected); Influenza AH1, 2009 Not Detected (NotDetected); Influenza AH1, PCR Not Detected (NotDetected); Influenza AH3,PCR Not Detected (NotDetected); Influenza B, PCR Not Detected (NotDetected); Mycoplasma Pneumoniae, PCR Not Detected (NotDetected); Parainfluenza 1, PCR Not Detected (NotDetected); Parainfluenza 2, PCR Not Detected (NotDetected); Parainfluenza 3, PCR Not Detected (NotDetected); Parainfluenza 4, PCR Not Detected (NotDetected)
[2024-10-18] MEDS: ACETAMINOPHEN 1,000MG/100ML VIAL 1000 MG IV (10:10)
[2024-10-18 11:07] LABS: POC Glucose,Bedside 186 (70-110)
--- NOTE | 2024-10-18 11:15 | CT_ITS ---
FINAL REPORT TECHNIQUE: Thin section axial images were obtained from the lung apices through the upper abdomen without contrast. This study was performed with techniques to keep radiation doses as low as reasonably achievable (ALARA). Individualized dose reduction techniques using automated exposure control or adjustment of mA and/or kV according to the patient's size were employed. CLINICAL HISTORY: eval pneumonia vs edema COMPARISON: 09/17/2024 FINDINGS: There is no axillary lymphadenopathy. There has been interval increase in size in multiple mediastinal lymph nodes, favor reactive. Mild hilar lymphadenopathy is also likely reactive. There are new, small bilateral pleural effusions. No pericardial effusion is identified. There is new bilateral interlobular septal thickening and new bilateral groundglass opacities which could be related to pulmonary edema and/or pneumonia.. Limited unenhanced evaluation of the upper abdomen reveals a stable left adrenal nodule. There is no acute osseous abnormality. IMPRESSION: New, interlobular septal thickening and bilateral groundglass opacities with small bilateral effusions. Findings could be related to pulmonary edema and/or pneumonia. Reviewed, Interpreted and Dictated by Brittany Gerber MD Transcribed by Linda Sutton Authenticated and . [facility]
[2024-10-18] MEDS: humaLOG 100 UNITS/ML 10ML VIAL (SSI) SUBCUT ×3 (11:19→20:23)
--- NOTE | 2024-10-18 11:37 | EXP.PHA.CONS ---
Pharmacy Consult Date: 10/18/24 Time: 11:37 Referring provider: DR. FLORES Reason for Consult:: VANCOMYCIN DOSING Allergies Allergy/AdvReac Type Severity Reaction Status Date / Time menthol (From LidoPatch) Allergy Unknown SKIN RASH Verified 10/15/24 19:13 lidocaine AdvReac Unknown SKIN RASH Verified 10/15/24 19:13 Home Medications ?Medication ?Instructions ?Recorded ?Confirmed ?Type aspirin 81 mg tablet,delayed 81 mg PO DAILY 11/05/20 10/16/24 History release omeprazole 40 mg capsule,delayed 40 mg PO DAILY 11/05/20 10/16/24 History release albuterol sulfate 90 mcg/actuation 2 puff inhalation Q6HP PRN 07/02/21 10/16/24 History aerosol inhaler Shortness Of Breath Or Wheezing gabapentin 600 mg tablet 600 mg PO TID 07/08/22 10/16/24 History duloxetine 60 mg capsule,delayed 60 mg PO DAILY 06/07/24 10/16/24 History release losartan 100 mg tablet 100 mg PO DAILY #30 tabs 08/09/24 10/16/24 Rx atorvastatin 20 mg tablet 20 mg PO DAILY 09/18/24 10/16/24 History clopidogrel 75 mg tablet 75 mg PO DAILY 09/18/24 10/16/24 History magnesium oxide 400 mg PO DAILY 09/18/24 10/16/24 History ropinirole 1 mg tablet 1 mg PO HS 09/18/24 10/16/24 History carvedilol 25 mg tablet (Coreg) 25 mg PO BID #60 tabs 09/26/24 10/16/24 Rx umeclidinium 62.5 mcg-vilanterol 1 inh inhalation DAILY 10/02/24 10/16/24 History 25 mcg/actuation powdr for inhalation (Anoro Ellipta) ropinirole 1 mg tablet 0.5 mg PO DAILY 10/16/24 10/16/24 History New Prescriptions to Start Prescriptions: Height: 1.6 m Weight: 65.8 kg Laboratory Results:: Laboratory Results - last 24 hr 10/17/24 08:31: Glucose 85 10/17/24 12:01: POC Glucose 120 H 10/17/24 21:35: Iron 50 D, TIBC 374, Iron Saturation 13.29186 L, Ferritin 116 D 10/18/24 02:06: POC Glucose 140 H 10/18/24 02:55: ABG pH 7.39, ABG pCO2 41.3, ABG pO2 59.8 L, ABG HCO3 24.3, ABG Total CO2 25.5, ABG O2 Saturation 88 L, ABG Base Excess -0.7 10/18/24 03:36: WBC 12.1 H D, RBC 3.02 L, Hgb 9.1 L, Hct 27.6 L, MCV 91.4, MCH 30.5, MCHC 33.3, RDW 13.8, Plt Count 167, MPV 9.1, Neut % (Auto) 87.7 H, Lymph % (Auto) 4.8 L, [place] % (Auto) 6.7, Eos % (Auto) 0.1, Baso % (Auto) 0.2, Neut # (Auto) 10.6 H, Lymph # (Auto) 0.6 L, [place] # (Auto) 0.8, Eos # (Auto) 0.0, Baso # (Auto) 0.0, Total Counted 100, Neutrophils % (Manual) 84 H, Lymphocytes % (Manual) 5 L, Monocytes % (Manual) 10 H, Basophils % (Manual) 1.0, Platelet Estimate Normal, RBC Morphology Normal, Sodium 136, Potassium 4.3 D, Chloride 94 L, Carbon Dioxide 26, Anion Gap 20.3 H, BUN 55 H, Creatinine 2.20 H, Estimated Creat Clear 27, Estimated GFR 23 L, Est GFR ( Amer) 27 L, Glucose 137 H D, Calcium 9.8, Total Bilirubin 1.2, AST 68 H, ALT 49 D, Alkaline Phosphatase 131 H, NT-Pro-B Natriuret Pep 76933 H, Total Protein 8.1, Albumin 4.9, Globulin 3.2, Albumin/Globulin Ratio 1.5, Procalcitonin 0.182 10/18/24 06:07: Urine Color Yellow, Urine Appearance Clear, Urine pH 5.5, Ur Specific [place] 1.010, Urine Protein Trace, Urine Glucose (UA) Trace, Urine Ketones Trace, Urine Blood 1+ A, Urine Nitrate Negative, Urine Bilirubin Negative, Urine Urobilinogen 0.2, Ur Leukocyte Esterase Negative, Urine RBC 3-5, Urine WBC None, Ur Squamous Epith Cells Occasional, Urine Bacteria Trace 10/18/24 06:14: POC Glucose 136 H 10/18/24 10:50: POC Glucose 186 H Medical History: Medical History (Updated 10/17/24 @ 16:55 by Oscar Parsons II, MD) History of smoking 30 or more pack years Acute respiratory failure with hypoxia Pulmonary emphysema Viral syndrome Right carotid bruit Fatigue Exposure to COVID-19 virus Chest pain Hypomagnesemia Subcutaneous nodule of back Angina pectoris Abnormal stress test Dyspnea Dizziness Left carotid bruit Palpitations Diastolic dysfunction Aortic insufficiency Abdominal pain Celiac artery stenosis Assessment and Plan Assessment and plan all Dx Assessment and Plan for all problems:: Pharmacokinetic dosing service Objective: Patient: Floor: Age: 64 yo Serum creatinine: 2.2 mg/dL Height: 63.0 Inches Weight (kg): 65.8 Assessment: IBW (kg): 52.40 Dosing wt(kg): 65.8 Estimated Creatinine clearance (ml/min): 21.7 CRCL method: Cockcroft and Gault using ibw(default). Drug selected: Vancomycin Loading dose (mg): 0 Vd (liters): 52.6 (factor used: 0.8 L/kg) Deejay (hr-1): 0.022 Half life (hrs): 31.51 Recommended dose: 1250 mg Interval: 48 hrs Infusion time (hrs): 2.0 Predicted peak (mcg/mL): 35.6 Predicted trough (mcg/mL): 12.94 Total body weight is being used for vancomycin dosing. Recommendations: Give Vancomycin 1250 mg q 48 hrs with an expected Cpeak of 35.6 mcg/ml and an expected Ctrough of 12.94 mcg/ml ----Vanco only - ignore for aminoglycosides----- CLvanco= 1.16 L/hr AUC 0-24 /CHANI Data: CHANI 0.5 mcg/mL: AUC/CHANI: 1077.6 CHANI 1.0 mcg/mL: AUC/CHANI: 538.8 --------- CHANI 1.5 mcg/mL: AUC/CHANI: 359.2 CHANI 2.0 mcg/mL: AUC/CHANI: 269.4
[2024-10-18] MEDS: CEFEPIME HCL 1 GM in 0.9 % SODIUM CHLORIDE 50 ML IV ×2 (11:59→20:18)
[2024-10-18] MEDS: VANCOMYCIN/WATER FOR INJ (PEG) 1.25 GM/250 ML PIGGYBACK IV (13:03)
--- NOTE | 2024-10-18 13:18 | MR_ITS ---
PROCEDURE INFORMATION: Exam: MR Head Without and With Contrast Exam date and time: 10/18/2024 3:08 PM Age: 64 years old Clinical indication: Altered mental status/memory loss; Additional info: R/O meningitis and stroke. AMS TECHNIQUE: Imaging protocol: Magnetic resonance imaging of the head without and with contrast. Contrast material: PROHANCE; Contrast volume: 17 ml; Contrast route: IV; COMPARISON: CT HEAD/BRAIN WO CON 10/17/2024 12:50 AM FINDINGS: Brain: No evidence of acute infarct or encephalitis on the diffusion-weighted sequence. No parenchymal hemorrhage. No evidence of brain parenchymal edema or intracranial mass effect. No evidence of meningitis. The brain demonstrates mild, generalized volume loss. The T2 weighted imaging demonstrates foci of increased signal intensity in the deep and subcortical white matter most likely representing mild chronic small vessel ischemic change. No enhancing intracranial pathology. Cerebral ventricles: Normal. No ventriculomegaly. Bones: Unremarkable. Paranasal sinuses: Mild ethmoid mucosal thickening. Mastoid air cells: Normal as visualized. No mastoid effusion. Orbital cavities: Unremarkable. Soft tissues: Unremarkable. IMPRESSION: No evidence of acute infarct.
--- NOTE | 2024-10-18 13:23 | P.PN_ITS ---
Subjective *Date: 10/18/24 *Time: 18:01 Interval history: Became frankly confused overnight. Also developed fever, white count, delirium this morning. Was agitated and necessitated restraints. Had increased oxygen requirement and wean off Vapotherm. Escalated care to ICU. Family at bedside. Pulmonology/critical care consulted this morning Medical Exam Vital signs and Labs for Last 24 Hours: Vital Signs Temp Pulse Pulse Resp BP BP Pulse Ox 10/18/24 12:11 10/18/24 12:01 98.6 F 90 22 144/117 H 95 10/18/24 11:14 91 H 10/18/24 11:14 91 H 10/18/24 11:14 93 L 10/18/24 11:00 10/18/24 11:00 99 H 26 H 151/66 H 94 L 10/18/24 10:42 98.7 F 10/18/24 10:01 96 H 25 H 140/57 L 92 L 10/18/24 09:03 110 H 27 H 151/133 H 94 L 10/18/24 09:00 10/18/24 08:01 102.1 F H 97 H 35 H 193/62 H 97 10/18/24 08:00 100 H 10/18/24 08:00 93 L 10/18/24 08:00 100.1 F H 98 H 32 H 183/68 H 96 10/18/24 07:15 10/18/24 07:00 10/18/24 06:56 106 H 33 H 185/64 H 94 L 10/18/24 06:02 106 H 10/18/24 06:02 113 H 10/18/24 06:02 96 10/18/24 06:01 99 H 27 H 100 10/18/24 06:01 180/66 H 10/18/24 06:00 101 H 29 H 180/66 H 95 10/18/24 05:18 167/83 H 10/18/24 04:58 107 H 27 H 167/83 H 97 10/18/24 04:53 10/18/24 04:13 100 H 97 10/18/24 04:05 109 H 10/18/24 04:00 99.7 F H 107 H 29 H 96 10/18/24 04:00 103 H 27 H 128/106 H 97 10/18/24 03:45 98 H 10/18/24 03:45 100 H 10/18/24 03:45 95 10/18/24 03:33 114 H 10/18/24 03:00 10/18/24 01:00 10/18/24 00:00 100 H 10/17/24 23:44 97.6 F 108 H 22 170/52 H 92 L 10/17/24 23:00 10/17/24 21:00 10/17/24 20:00 93 L 10/17/24 20:00 80 10/17/24 19:55 98.3 F 93 H 16 145/62 H 92 L 10/17/24 18:56 10/17/24 17:00 10/17/24 16:00 80 10/17/24 16:00 98.2 F 72 17 134/51 L 93 L 10/17/24 15:00 O2 Del Method O2 Flow Rate FiO2 10/18/24 12:11 Nasal Cannula 3 10/18/24 12:01 Nasal Cannula 4 10/18/24 11:14 10/18/24 11:14 10/18/24 11:14 Nasal Cannula 3 10/18/24 11:00 Nasal Cannula 3 10/18/24 11:00 Nasal Cannula 4 10/18/24 10:42 10/18/24 10:01 Nasal Cannula 4 10/18/24 09:03 Vapotherm 20 45 10/18/24 09:00 Vapotherm 20 10/18/24 08:01 Vapotherm 20 40 10/18/24 08:00 10/18/24 08:00 Vapotherm 20 45 10/18/24 08:00 Vapotherm 20 45 10/18/24 07:15 Vapotherm 20 45 10/18/24 07:00 Vapotherm 20 10/18/24 06:56 Vapotherm 20 45 10/18/24 06:02 10/18/24 06:02 10/18/24 06:02 Vapotherm 25 50 10/18/24 06:01 10/18/24 06:01 10/18/24 06:00 Vapotherm 20 45 10/18/24 05:18 10/18/24 04:58 Vapotherm 25 50 10/18/24 04:53 Vapotherm 25 10/18/24 04:13 Vapotherm 25 50 10/18/24 04:05 10/18/24 04:00 Vapotherm 25 50 10/18/24 04:00 Vapotherm 10/18/24 03:45 10/18/24 03:45 10/18/24 03:45 Vapotherm 25 50 10/18/24 03:33 10/18/24 03:00 Venturi Mask 15 10/18/24 01:00 Nasal Cannula 4 10/18/24 00:00 10/17/24 23:44 Nasal Cannula 3 10/17/24 23:00 Nasal Cannula 2 10/17/24 21:00 Nasal Cannula 2 10/17/24 20:00 Nasal Cannula 2 10/17/24 20:00 10/17/24 19:55 Nasal Cannula 2 10/17/24 18:56 Nasal Cannula 2 10/17/24 17:00 Nasal Cannula 2 10/17/24 16:00 10/17/24 16:00 Nasal Cannula 2 10/17/24 15:00 Nasal Cannula 2 Intake and Output 10/17/24 10/18/24 10/18/24 23:59 07:59 15:59 Intake Total 0 / 0 Output Total 700 / 2000 700 / 1800 1100 / 1800 Balance -700 / -1560 -700 / -1800 -1100 / -1800 Intake: Intake, Oral Amount 0 / 0 Output: Output, Urine Amount 700 / 2000 700 / 1800 1100 / 1800 Other: Number of Voids 0 Number of Unmeasured Voids 0 0 0 Number of Bowel Movements 1 Weight 65.8 kg 65.8 kg Patient Weight 10/18/24 23:59 Weight 65.8 kg Laboratory Results - last 24 hr 10/17/24 08:31: Glucose 85 10/17/24 21:35: Iron 50 D, TIBC 374, Iron Saturation 13.53291 L, Ferritin 116 D 10/18/24 02:06: POC Glucose 140 H 10/18/24 02:55: ABG pH 7.39, ABG pCO2 41.3, ABG pO2 59.8 L, ABG HCO3 24.3, ABG Total CO2 25.5, ABG O2 Saturation 88 L, ABG Base Excess -0.7 10/18/24 03:36: WBC 12.1 H D, RBC 3.02 L, Hgb 9.1 L, Hct 27.6 L, MCV 91.4, MCH 30.5, MCHC 33.3, RDW 13.8, Plt Count 167, MPV 9.1, Neut % (Auto) 87.7 H, Lymph % (Auto) 4.8 L, Taylor % (Auto) 6.7, Eos % (Auto) 0.1, Baso % (Auto) 0.2, Neut # (Auto) 10.6 H, Lymph # (Auto) 0.6 L, Taylor # (Auto) 0.8, Eos # (Auto) 0.0, Baso # (Auto) 0.0, Total Counted 100, Neutrophils % (Manual) 84 H, Lymphocytes % (Manual) 5 L, Monocytes % (Manual) 10 H, Basophils % (Manual) 1.0, Platelet Estimate Normal, RBC Morphology Normal, Sodium 136, Potassium 4.3 D, Chloride 94 L, Carbon Dioxide 26, Anion Gap 20.3 H, BUN 55 H, Creatinine 2.20 H, Estimated Creat Clear 27, Estimated GFR 23 L, Est GFR ( Amer) 27 L, Glucose 137 H D, Calcium 9.8, Total Bilirubin 1.2, AST 68 H, ALT 49 D, Alkaline Phosphatase 131 H, NT-Pro-B Natriuret Pep 69151 H, Total Protein 8.1, Albumin 4.9, Globulin 3.2, Albumin/Globulin Ratio 1.5, Procalcitonin 0.182 10/18/24 06:07: Urine Color Yellow, Urine Appearance Clear, Urine pH 5.5, Ur Specific [place] 1.010, Urine Protein Trace, Urine Glucose (UA) Trace, Urine Ketones Trace, Urine Blood 1+ A, Urine Nitrate Negative, Urine Bilirubin Nega tive, Urine Urobilinogen 0.2, Ur Leukocyte Esterase Negative, Urine RBC 3-5, Urine WBC None, Ur Squamous Epith Cells Occasional, Urine Bacteria Trace 10/18/24 06:14: POC Glucose 136 H 10/18/24 09:33: Chlamy pneumoniae PCR Not detected, Adenovirus (PCR) Not detected, B. pertussis DNA (PCR) Not detected, Coronavirus OC43 (PCR) Not detected, Coronavirus HKU1 (PCR) Not detected, Coronavirus 229E (PCR) Not detected, SARS-CoV-2 (PCR) Not detected, Coronavirus NL63 (PCR) Not detected, Human Metapneumovir PCR Not detected, Influenza A (H1) PCR Not detected, Influ A (H1N1/09) PCR Not detected, Influenza A (H3) PCR Not detected, Influenza Type A (PCR) Not detected, Influenza Type B (PCR) Not detected, M. pneumoniae (PCR) Not detected, Parainfluenza 1 (PCR) Not detected, Parainfluenza 2 (PCR) Not detected, Parainfluenza 3 (PCR) Not detected, Parainfluenza 4 (PCR) Not detected, RSV (PCR) Not detected, Entero/Rhino (PCR) Not detected 10/18/24 10:50: POC Glucose 186 H I & O for Labs for Last 24 Hours: Intake & Output 10/15/24 10/16/24 10/17/24 10/18/24 23:59 23:59 23:59 23:59 Intake Total 0 / 0 810 / 1050 440 / 440 0 / 0 Output Total 700 / 700 2950 / 3150 2000 / 2000 1800 / 1800 Balance -700 / -700 -2140 / -2100 -1560 / -1560 -1800 / -1800 Weight 68.266 kg 70.307 kg 67.948 kg 65.8 kg Constitutional: Present moderate distress, chronically ill appearing, disheveled and agitated Head: Present atraumatic Eyes: Present eye discharge (Clear) ENT: Present normal exam Neck: Present normal inspection and full ROM Respiratory: Present crackles (Basis), normal respiratory effort, able to speak in complete sentences and symmetric chest movement; Absent rhonchi or wheezes Cardiac: Present Tachycardia GI: Present soft and normal bowel sounds; Absent distention or tenderness Rectal (female): Present deferred (female): Present deferred Comment:: Childers in place Extremities: Present normal inspection and full ROM Skin: Present intact and dry Comment:: Senile purpura left arm Neuro: Present Weakness, alert and awake Comment:: Disoriented initially on morning rounds. Also having consistent twitching and movement. Almost like choreiform movement or agitation. As day went on, became more oriented. Was oriented to self, family around her, situation and place. Does not recall her confusion and delirium overnight Assessment and Plan *Assessment and plan (1) Symptomatic anemia: Status: Acute Category: Medical Code(s): D64.9 - Anemia, unspecified (2) Generalized weakness: Status: Acute Category: Medical Code(s): R53.1 - Weakness (3) Syncope: Status: Acute Category: Medical Code(s): R55 - Syncope and collapse (4) CKD (chronic kidney disease): Status: Acute Category: Medical Code(s): N18.9 - Chronic kidney disease, unspecified (5) Murmur: Status: Acute Category: Medical Code(s): R01.1 - Cardiac murmur, unspecified (6) CAD (coronary artery disease): Status: Chronic Qualifiers: Associated angina: without angina Coronary Disease-Associated Artery/Lesion type: [place] artery [place] vs. transplanted heart: [place] heart Qualified Code(s): I25.10 - Atherosclerotic heart disease of [place] coronary artery without angina pectoris Category: Medical Code(s): I25.10 - Atherosclerotic heart disease of [place] coronary artery without angina pectoris (7) DM (diabetes mellitus): Status: Chronic Qualifiers: Diabetes mellitus complication status: without complication Diabetes mellitus intermediate card tender insulin use: without correction use Diabetes mellitus type: type 2 Qualified Code(s): E11.9 - Type 2 diabetes mellitus without complications Category: Medical Code(s): E11.9 - Type 2 diabetes mellitus without complications (8) PAD (peripheral artery disease): Status: Chronic Category: Medical Code(s): I73.9 - Peripheral vascular disease, unspecified (9) Acute metabolic encephalopathy: Status: Acute Category: Medical Code(s): G93.41 - Metabolic encephalopathy (10) Encephalopathy: Status: Acute Category: Medical Code(s): G93.40 - Encephalopathy, unspecified (11) Acute respiratory failure with hypoxia: Status: Acute Category: Medical Code(s): J96.01 - Acute respiratory failure with hypoxia (12) Pneumonia: Status: Acute Category: Medical Code(s): J18.9 - Pneumonia, unspecified organism Plan Ms. Pendleton is a 64-year-old female who came to the emergency room after a presyncopal episode at home. She denies falling or injury. This is her second syncopal episode in the past month.Workup was done in the emergency department and patient was found to be bradycardic, heart rate 57. She also was found to be anemic hemoglobin 8.1. She was given 1 unit packed red blood cells, which she did not respond to repeat hemoglobin 7.9. Patient overall feels well today but still complains of intermittent shortness of breath and lightheadedness. She cannot specify if there is something that brings it on. She does state that she sees cardiology here in her Coreg was recently increased from 12.5 twice daily to 25 twice daily. She did have echo on 09/18 but showed an EF of 60%. I nitial chest imaging unremarkable. Overnight had an episode where she became hypoxic and had increased agitation and delirium. Developed elevated white count on labs, tachycardia, fever of 102, respiratory distress necessitating transfer to ICU and initiation of Vapotherm. Meeting sepsis criteria. Pulm/critical care consulted to assist with management this morning. Problems addressed as follows: Sepsis Encephalopathy - Chest x-ray concerning for bilateral airspace disease versus edema. Chest CT obtained showing mild right upper lobe airspace disease with small effusions bilaterally. MRI of head obtained showing no acute stroke and negative for meningeal - White count elevated to 12, tachycardic and febrile this morning. Antibiotics broadened to vancomycin and cefepime IV. Monitor kidney function closely for toxicity - Blood cultures obtained along with urine culture. - Mentation improving through the day. Differential includes medication side effect, pneumonia, UTI, meningitis. - Continues to require ICU level care #Symptomatic anemia #Generalized weakness #Syncope ? Hemoglobin 9.1. No active signs of bleeding. - Repeat CBC, CMP, magnesium ordered for the morning -Resume carvedilol 6.25 mg twice daily as blood pressure is increased. - Patient is on continuous cardiac telemetry. Patient has a known murmur, states its benign. ? GI planning to scope today, scope was postponed due to agitation and sepsis. Will reevaluate next week if patient still admitted. Hemoglobin stable. No active signs of bleed - BNP severely elevated this morning at 14,000, administer diuretics x 1 with -5 L of output. #DDD #Intrathecal pain pump ?Patient became increasingly confused overnight. MRI head did not show stroke. Does show chronic periventricular white matter changes per my review. Does not show meningitis. - Unable to perform LP due to antiplatelet drugs and intrathecal pump. -Holding Cymbalta, drained pain pump, discontinued gabapentin. Concern for medication toxicity and side effect due to renal dysfunction. #CKD ? Patient has an appointment in [place] with Dr. Egan computed tomography scanner operator, for CKD evaluation. It appears patient's kidney function has been elevated over the past several months. - Kidney function stable BUN 55, creatinine 2.2. Potassium 4.3. #PAD - on DAPT, pad pci over 1 year ago, discontinue until eitiology of anemia described - if no active blood loss would benefit from xarelto 2.5 bid and asa, patient states she is unable to afford Xarelto. #COPD ? Respiratory failure overnight. Necessitated Vapotherm. Wean as tolerated for goal sats greater 90%. Currently on 3 L nasal cannula oxygen. DuoNebs every 4hrs scheduled #Diabetes, type II ?ACHS fingersticks, sliding scale insulin ordered. #RLS - Decrease ropinirole due to confusion Full code Regular diet VTE?Lovenox 40 mg subcu daily ICU/Critical care attestation This patient is critically ill with 40 minutes devoted solely to this patient managing life/organ supporting interventions that required physician assessment. This includes time spent making adjustments in ventilator settings, IV fluid administration, titration of pressors, adjustments of medications, discussion of patient with consultants and other care providers as well as updating patient and/or family (if patient by virtue of his/her condition is unable to participate in decision making). This does not include time spent performing separately billed procedures. Time is not concurrent with that of other providers.
--- NOTE | 2024-10-18 14:45 | PC.NURSE ---
at 1436 pt had her pain pump drained so that she could have an MRI. Pt tolerated procedure well.
--- NOTE | 2024-10-18 14:51 | P.PCN_ITS ---
[facility] Procedure Note Date: 10/18/24 Time: 14:42 Procedure Note:: Patient is a pleasant 64-year-old female who is having her pump trying to in order to have a MRI due to her ongoing confusion. Today she is not rating any pain and is currently been turned down to minimal flow since yesterday. Patient does seem much more coherent and is responding appropriate during today's exam. Physical Exam: General: Alert and oriented x3, no acute distress, pleasant and cooperative Lungs: Respirations even and unlabored, symmetrical chest expansion Eyes: PERRL Musculoskeletal: Flexion and extension of lumbar [spine] somewhat guarded secondary to pain, [antalgic gait noted] Neurological: Speech clear, no gross sensory deficit Informed consent was obtained and the risk and benefits of the procedure were explained to the patient. The patient had noninvasive monitoring placed including noninvasive blood pressure cuff and pulse oximeter. Patient's pump was interrogated. The area over the pump was cleansed with chlorhexidine as a cleansing solution. In sterile fashion the pump was accessed with a 22-gauge needle. Approximately 18 mls of the pump solution was removed and securely placed in the ICU medication safe. Patient's pump was then reprogrammed with 0 mL solution. Patient tolerated the procedure well with no complications. Patient was taken to radiology for her MRI. We will plan on refilling her when she completes this imaging. Patient was much better today versus yesterday's visit. Patient was speaking normally and was able to answer questions appropriately. Patient's pump did have the appropriate amount expected from her programming and I do not have concerns that the pump is playing a role in her ongoing symptoms. We will continue to monitor the patient's progress. Patient did arrive back to ICU on little around 1615. I did proceed to refill her pump back with her morphine 5 mg/mL pump medication. This was done sterilely using a 22-gauge sterile needle. Using her same 18 mL of solution that was previously removed prior to her MRI we did instill this back into her intrathecal pump. Needle was removed. Patient tolerated the procedure well with no complications. Patient was then reprogrammed back to morphine 5 mg/mL with a daily dose of 0.1 mg/day. Patient was more mobile and a little bit more confused during this procedure. We will follow-up after evaluation of her MRI. Patient's spouse did say that they have discussed with the hospitalist about sending her to a higher care facility if there is no significant findings on the MRI for possible lumbar puncture. We will see the patient back in the clinic at the next intrathecal refill. Patient has been instructed to contact the clinic with any concerns before the next appointment. Dr. Velasquez has reviewed this note and agrees with this plan of care. This note was dictated using voice recognition software and make contain errors or omissions. -- It Is medically necessary for this patient to continue to have their intrathecal pump refilled at regular intervals. This patient had an intrathecal pain pump implanted after meeting criteria of chronic intractable pain for greater than 3 months and failing conservative treatments. Patient has committed and been compliant to the treatment plan and all planned follow up care. Since implantation of the intrathecal pain pump, the patient has had decreased pain and been more functional. Oral medications have been reduced including intake of oral opioids. Patient continues to do well with intrathecal therapy with decrease in pain symptoms and increase in functional status. Stopping intrathecal medications can lead to life threatening withdrawal, seizures, cardiac arrest, severe pain, and possible . Pumps that are not refilled at regular intervals can be damages and cause and need for replacement. We continually titrate dose and concentration to optimize pain relief and function. We are limited in concentration for certain drugs to safely deliver medications through the pump and stay within the recommendations from the Polyanalgesic Consensus Committee Guidelines. Depending on dose and concentration these pumps may need to be refilled sooner than 3 months as we titrate. A UDS is needed to verify patient's compliance with our office pain contract. This is ordered based off specific treatments related to chronic pain with the potential to abuse certain medications.
[2024-10-18] MEDS: GADOTERIDOL INJ 20ML SYRINGE 13 ML IV (15:52)
[2024-10-18 16:52] LABS: POC Glucose,Bedside 199 (70-110)
--- NOTE | 2024-10-18 17:00 | PC.NURSE ---
at 1435 pain pump was emptied by provider alicia peters at bedside for pt to be able to have an MRI. 18mL of medication removed from pain pump, verified volume with alicia peters after she removed from pump. Medication was labeled with pt sticker, medication name and concentration, initialed timed and dated by myself-locked in ICU lock box in medication room per myself and pt primary nurse Penny. at 1630 provider alicia peters filled pt pain pump back up with morphine 5mg/mL, pump reprogrammed per alicia peters for 17.3mL of volume to account for volume in tubing per alicia peters. helped pt to reposition in bed. bp 167/59, pt wearing O2 at 2L per nc. Pt at BS.
[2024-10-18 20:12] LABS: POC Glucose,Bedside 257 (70-110)
[2024-10-18] MEDS: CARVEDILOL 12.5MG TABLET 12.5 MG PO (20:18)
[2024-10-18] MEDS: PAT OWN MED ***ATORVASTATIN 20MG 20 MG PO (20:23)
[2024-10-18] MEDS: QUETIAPINE 25MG TABLET 25 MG PO (20:35)
[2024-10-19] VITALS (21 sets, daily range): BP systolic 135–169; BP diastolic 46–80; PULSE 79–100; RESP 15–33; TEMP 37.1–37.2; O2SAT 91–98; BMI 23.9
[2024-10-19] MEDS: METHYLPREDNISOLONE SOD SUCC 40MG VIAL 40 MG IV ×3 (00:44→13:18)
[2024-10-19] MEDS: IPRATROPIUM/ALBUTEROL 3 ML NEB IH ×6 (02:25→22:10)
[2024-10-19] MEDS: HYDROCODONE/APAP 5/325 MG TABLET 1 TAB PO (03:21)
[2024-10-19] MEDS: ONDANSETRON 4MG/2ML VIAL 4 MG IV ×2 (03:24→16:39)
[2024-10-19 04:13] LABS: POC Glucose,Bedside 222 (70-110)
--- NOTE | 2024-10-19 04:15 | PC.NURSE ---
Nurse called subscription crew leader provider for onset of nausea and vomiting and diarrhea with hot flashes and no elevated temp with stable vitals, nausea not reactive to zofran given. Provider said he would put something in po, and nurse countered that it was probably not going to stay down with her being sick. MD said he would place orders at this time (0350 AM) still no new orders placed. RN will continue to support patient at the bedside until orders are placed.
--- NOTE | 2024-10-19 04:21 | PC.NURSE ---
Patient has been confused and altered most of my shift. She could tell me where she was and who she was but continued to have inappropriate behavior that her family reported was not normal for her. Throughout the night she was restless, trying to rip all of her monitoring equipment off, get out of bed and yelling out often. This morning when she woke up she had no recollection of her mental state the past few hours and does not recall any of the things she said and states she wants to go home. She is the most alert and oriented she has been since I have been on shift. Will pass on to dayshift our struggle with confusion during my shift and make sure MD's are aware of the altering level of consciousness.
[2024-10-19] MEDS: VILANTEROL IH (06:03)
[2024-10-19] MEDS: UMECLIDINIUM IH (06:03)
[2024-10-19] MEDS: humaLOG 100 UNITS/ML 10ML VIAL (SSI) SUBCUT ×4 (06:04→20:40)
[2024-10-19 06:05] LABS: Hematocrit 29.4 % (37.0-47.0); Hemoglobin 9.9 g/dL (12.2-16.2); Immature Granulocytes % 0.7 %; Mean Corpuscular HGB Conc 33.7 g/dL (31.8-35.4); Mean Corpuscular Hemoglobin 30.6 pg (27.0-31.2); Mean Corpuscular Volume 90.7 fl (81-99); Nucleated Red Blood Cells % 0 %; Platelet Count 201 K/mm3 (142-424); Red Blood Count 3.24 M/mm3 (4.20-5.40); Red Cell Distribution Width-SD 46.4 fL; White Blood Count 13.4 K/mm3 (4.8-10.8)
[2024-10-19 06:10] LABS: POC Glucose,Bedside 222 (70-110)
[2024-10-19 06:11] LABS: Alanine Aminotransferase 44 U/L (12-78); Albumin Level 5.0 g/dl (3.5-5.0); Albumin/Globulin Ratio 1.4 (1.1-1.8); Alkaline Phosphatase 108 U/L (38-126); Anion Gap 22.1 mEq/L (5-15); Aspartate Amino Transferase 80 U/L (14-36); Bilirubin,Total 1.3 mg/dl (0.2-1.3); Blood Urea Nitrogen 68 mg/dl (7-17); Calcium 10.2 mg/dl (8.4-10.2); Carbon Dioxide 25 mmol/L (22.0-30.0); Chloride 94 mmol/L (98-107); Creatinine Clearance Estimated 21 mL/min (50-200); Creatinine,Serum 2.60 mg/dl (0.52-1.04); Estimated Glomerular Filt Rate 19 ml/min (>60); GFR (African American) 22 ML/MIN (>60); Globulin 3.7 g/dL (1.3-3.2); Glucose 224 mg/dl (74-100); Magnesium 2.2 mg/dl (1.6-2.3); Potassium 3.1 mmoL/L (3.5-5.1); Sodium 138 mmol/L (136-145); Total Protein,Serum 8.7 g/dl (6.3-8.2)
[2024-10-19 07:27] LABS: RBC Morphology Normal; Total Cells Counted 100
[2024-10-19] MEDS: ROPINIROLE 1 MG 0.5 MG PO (08:14)
[2024-10-19] MEDS: CEFEPIME HCL 1 GM in 0.9 % SODIUM CHLORIDE 50 ML IV ×2 (08:14→20:40)
[2024-10-19] MEDS: LORATADINE 10MG TABLET 10 MG PO (08:14)
[2024-10-19] MEDS: CARVEDILOL 12.5MG TABLET 12.5 MG PO ×2 (08:14→20:38)
[2024-10-19] MEDS: FLUTICASONE PROP 50MCG NASAL SPRAY 16GM 2 SPRAY NS (08:32)
[2024-10-19] MEDS: SODIUM CHLORIDE 3% 15ML NEB 3 ML IH (10:22)
[2024-10-19 11:26] LABS: POC Glucose,Bedside 203 (70-110)
--- NOTE | 2024-10-19 11:29 | PC.NURSE ---
Patient requested to get up to chair for a while and did well. patient was a standby assist to get up to chair. patient sat up to chair for approximately an hour. Patient is now back in bed with family at . Patient is able to self turn and is currently on her left side. bed alarm is on an functioning. call light is within reach.
--- NOTE | 2024-10-19 13:18 | PC.NURSE ---
Addendum entered by Deandra Hamilton RN 10/19/24 14:06: home meds in lock drawer sent over with patient Original Note: patient anxious to get de [place] out. removed at this time and educated on voiding schedule. has been alert and oriented x4. family has been visiting. no vomiting or diarrhea at this time. did request return of o2 after removal. 94% on 1l. rings out as needed. up and down between chair and bed with a 1 assist.
--- NOTE | 2024-10-19 13:30 | PC.NURSE ---
patient left ICU room 261 via wheelchair to go to MS room 215 with MS ROCÍO @[id number]
--- NOTE | 2024-10-19 13:31 | P.PN_ITS ---
Subjective *Date: 10/19/24 *Time: 13:31 Interval history: Patient feeling much better this morning. Difficult time sleeping but is alert and oriented x 4. Family at bedside. Significant improvement in her jerky sporadic movements, orientation, alertness to situation. Afebrile. On 2 L oxygen. No nausea or vomiting. Medical Exam Vital signs and Labs for Last 24 Hours: Vital Signs Temp Pulse Resp BP BP Pulse Ox O2 Del Method 10/19/24 13:00 Nasal Cannula 10/19/24 12:01 100 H 10/19/24 11:58 98.8 F 87 18 163/64 H 93 L Nasal Cannula 10/19/24 11:00 Nasal Cannula 10/19/24 10:20 81 15 10/19/24 10:20 81 10/19/24 10:20 81 10/19/24 10:20 94 L Nasal Cannula 10/19/24 09:00 79 19 149/53 H 97 10/19/24 09:00 Nasal Cannula 10/19/24 08:04 100 H 10/19/24 08:01 98.9 F 95 H 22 145/60 H 96 Nasal Cannula 10/19/24 08:00 Nasal Cannula 10/19/24 08:00 Nasal Cannula 10/19/24 07:00 89 20 149/60 H 94 L Nasal Cannula 10/19/24 06:13 88 10/19/24 06:13 84 10/19/24 06:13 98 Nasal Cannula 10/19/24 06:06 Nasal Cannula 10/19/24 06:00 88 21 169/74 H 98 Vapotherm 10/19/24 05:00 82 22 155/57 H 96 Nasal Cannula 10/19/24 04:21 Nasal Cannula 10/19/24 04:00 84 10/19/24 04:00 98.9 F 99 H 22 135/67 96 Nasal Cannula 10/19/24 03:00 91 H 33 H 150/61 H 91 L Nasal Cannula 10/19/24 02:25 95 H 10/19/24 02:25 93 H 10/19/24 02:16 Nasal Cannula 10/19/24 02:00 87 31 H 143/80 H 97 Nasal Cannula 10/19/24 02:00 Nasal Cannula 10/19/24 01:00 85 23 150/64 H 95 Nasal Cannula 10/19/24 00:43 Nasal Cannula 10/19/24 00:00 98.7 F 94 H 25 H 141/46 H 97 Nasal Cannula 10/19/24 00:00 95 H 10/18/24 23:00 91 H 34 H 132/54 L 97 Nasal Cannula 10/18/24 23:00 Nasal Cannula 10/18/24 22:52 87 10/18/24 22:52 83 10/18/24 22:00 95 H 29 H 125/94 H 96 Nasal Cannula 10/18/24 21:00 98.7 F 90 24 125/44 L 95 Nasal Cannula 10/18/24 21:00 Nasal Cannula 10/18/24 20:45 87 25 H 98 10/18/24 20:00 95 H 17 185/76 H 94 L Nasal Cannula 10/18/24 20:00 90 10/18/24 19:45 95 Nasal Cannula 10/18/24 19:00 95 H 20 143/61 H 95 10/18/24 19:00 Nasal Cannula 10/18/24 18:34 95 H 10/18/24 18:34 87 10/18/24 18:34 95 Nasal Cannula 10/18/24 18:14 90 30 H 143/71 H 95 Nasal Cannula 10/18/24 17:02 92 H 26 H 172/79 H 95 Nasal Cannula 10/18/24 17:00 Nasal Cannula 10/18/24 16:34 93 H 30 H 104/51 L 98 Nasal Cannula 10/18/24 16:30 167/59 H Nasal Cannula 10/18/24 16:00 90 10/18/24 16:00 Nasal Cannula 10/18/24 16:00 95 Nasal Cannula 10/18/24 15:00 Nasal Cannula 10/18/24 14:34 Nasal Cannula 10/18/24 14:29 90 10/18/24 14:29 91 H 10/18/24 14:29 96 Nasal Cannula 10/18/24 14:00 94 H 21 131/65 95 Nasal Cannula O2 Flow Rate FiO2 10/19/24 13:00 1 10/19/24 12:01 10/19/24 11:58 1 10/19/24 11:00 2 10/19/24 10:20 10/19/24 10:20 10/19/24 10:20 10/19/24 10:20 2 10/19/24 09:00 10/19/24 09:00 2 10/19/24 08:04 10/19/24 08:01 2 10/19/24 08:00 10/19/24 08:00 2 10/19/24 07:00 2 10/19/24 06:13 10/19/24 06:13 10/19/24 06:13 2 10/19/24 06:06 2 10/19/24 06:00 40 70 10/19/24 05:00 2 10/19/24 04:21 2 10/19/24 04:00 10/19/24 04:00 2 10/19/24 03:00 2 10/19/24 02:25 10/19/24 02:25 10/19/24 02:16 2 10/19/24 02:00 2 10/19/24 02:00 2 10/19/24 01:00 2 10/19/24 00:43 2 10/19/24 00:00 2 10/19/24 00:00 10/18/24 23:00 2 10/18/24 23:00 2 10/18/24 22:52 10/18/24 22:52 10/18/24 22:00 2 10/18/24 21:00 2 10/18/24 21:00 2 10/18/24 20:45 10/18/24 20:00 2 10/18/24 20:00 10/18/24 19:45 2 10/18/24 19:00 10/18/24 19:00 2 10/18/24 18:34 10/18/24 18:34 10/18/24 18:34 2 10/18/24 18:14 2 10/18/24 17:02 2 10/18/24 17:00 2 10/18/24 16:34 2 10/18/24 16:30 10/18/24 16:00 10/18/24 16:00 2 10/18/24 16:00 2 10/18/24 15:00 2 10/18/24 14:34 10/18/24 14:29 10/18/24 14:29 10/18/24 14:29 3 10/18/24 14:00 3 Intake and Output 10/18/24 10/19/24 10/19/24 23:59 07:59 15:59 Intake Total 700 / 750 50 / 494 444 / 494 Output Total 250 / 2250 350 / 800 450 / 800 Balance 450 / -1500 -300 / -306 -6 / -306 Intake: Intake, Oral Amount 400 / 400 444 / 444 Intake, Total IV Amount 300 / 350 50 / 50 Cefepime HCl 1 gm In 0.9 % 50 / 100 50 / 50 Sodium Chloride 50 ml @ 100 mls /hr IV Q12 [facility] Rx#:[id number] Vancomycin/Water For Inj (Peg) 250 / 250 1.25 gm In 250 ml @ 125 mls/hr IV Q48H [facility] Rx#:[id number] Output: Output, Urine Amount 250 / 2250 350 / 800 450 / 800 Other: Number of Unmeasured Voids 0 0 0 Number of Bowel Movements 1 Number of Unmeasured Emesis 3 Episodes Weight 61.3 kg Patient Weight 10/19/24 23:59 Weight 61.3 kg Laboratory Results - last 24 hr 10/18/24 16:39: POC Glucose 199 H 10/18/24 20:02: POC Glucose 257 H 10/19/24 04:06: POC Glucose 222 H 10/19/24 04:43: WBC 13.4 H, RBC 3.24 L, Hgb 9.9 L, Hct 29.4 L, MCV 90.7, MCH 30.6, MCHC 33.7, RDW 13.9, Plt Count 201, MPV 9.9, Neut % (Auto) 89.0 H, Lymph % (Auto) 3.8 L, Alfalfa % (Auto) 6.4, Eos % (Auto) 0.0 L, Baso % (Auto) 0.1, Neut # (Auto) 11.9 H, Lymph # (Auto) 0.5 L, Alfalfa # (Auto) 0.9, Eos # (Auto) 0.0, Baso # (Auto) 0.0, Total Counted 100, Neutrophils % (Manual) 90 H, Lymphocytes % (Manual) 3 L, Monocytes % (Manual) 7, Platelet Estimate Normal, RBC Morphology Normal, Sodium 138, Potassium 3.1 L D, Chloride 94 L, Carbon Dioxide 25, Anion Gap 22.1 H, BUN 68 H, Creatinine 2.60 H, Estimated Creat Clear 21, Estimated GFR 19 L*, Est GFR ( Amer) 22 L, Glucose 224 H, Calcium 10.2, Magnesium 2.2 D, Total Bilirubin 1.3, AST 80 H, ALT 44, Alkaline Phosphatase 108, Total Protein 8.7 H, Albumin 5.0, Globulin 3.7 H, Albumin/Globulin Ratio 1.4 10/19/24 05:57: POC Glucose 222 H 10/19/24 11:17: POC Glucose 203 H I & O for Labs for Last 24 Hours: Intake & Output 10/16/24 10/17/24 10/18/24 10/19/24 23:59 23:59 23:59 23:59 Intake Total 810 / 1050 440 / 440 700 / 750 494 / 494 Output Total 2950 / 3150 1999 / 1999 2050 / 2250 800 / 800 Balance -2140 / -2100 -1560 / -1560 -1350 / -1500 -306 / -306 Weight 70.307 kg 67.948 kg 65.8 kg 61.3 kg Microbiology Reports for the Last 24 Hours: Microbiology 10/18/24 07:20 Blood Blood Culture - Preliminary NO GROWTH AFTER 24 HOURS 10/18/24 07:10 Blood Blood Culture - Preliminary NO GROWTH AFTER 24 HOURS 10/18/24 06:07 Urine,Catheterized Urine Culture - Preliminary Gram Negative Rods Constitutional: Present no acute distress, average body habitus, chronically ill appearing, disheveled and cooperative Head: Present atraumatic ENT: Present normal exam Neck: Present normal inspection and full ROM Respiratory: Present normal respiratory effort, able to speak in complete sentences and symmetric chest movement; Absent accessory muscle use, rhonchi, wheezes or crackles Cardiac: Present Reg Rate and Rhythm GI: Present soft and normal bowel sounds; Absent distention or tenderness Rectal (female): Present deferred (female): Present deferred Comment:: Childers in place Extremities: Present normal inspection and full ROM Skin: Present intact and dry Comment:: Senile purpura left arm Neuro: Present Weakness, alert, awake, oriented x 3 and moves all extremities Assessment and Plan *Assessment and plan (1) Symptomatic anemia: Status: Acute Category: Medical Code(s): D64.9 - Anemia, unspecified (2) Generalized weakness: Status: Acute Category: Medical Code(s): R53.1 - Weakness (3) Syncope: Status: Acute Category: Medical Code(s): R55 - Syncope and collapse (4) CKD (chronic kidney disease): Status: Acute Category: Medical Code(s): N18.9 - Chronic kidney disease, unspecified (5) Murmur: Status: Acute Category: Medical Code(s): R01.1 - Cardiac murmur, unspecified (6) CAD (coronary artery disease): Status: Chronic Qualifiers: Coronary Disease-Associated Artery/Lesion type: [place] artery [place] vs. transplanted heart: [place] heart Associated angina: without angina Qualified Code(s): I25.10 - Atherosclerotic heart disease of [place] coronary artery without angina pectoris Category: Medical Code(s): I25.10 - Atherosclerotic heart disease of [place] coronary artery without angina pectoris (7) DM (diabetes mellitus): Status: Chronic Qualifiers: Diabetes mellitus type: type 2 Diabetes mellitus complication status: without complication Diabetes mellitus parts counterman insulin use: without custodial use Qualified Code(s): E11.9 - Type 2 diabetes mellitus without complications Category: Medical Code(s): E11.9 - Type 2 diabetes mellitus without complications (8) PAD (peripheral artery disease): Status: Chronic Category: Medical Code(s): I73.9 - Peripheral vascular disease, unspecified (9) Acute metabolic encephalopathy: Status: Acute Category: Medical Code(s): G93.41 - Metabolic encephalopathy (10) Encephalopathy: Status: Acute Category: Medical Code(s): G93.40 - Encephalopathy, unspecified (11) Acute respiratory failure with hypoxia: Status: Acute Category: Medical Code(s): J96.01 - Acute respiratory failure with hypoxia (12) Pneumonia: Status: Acute Category: Medical Code(s): J18.9 - Pneumonia, unspecified organism Plan Ms. Chester is a 64-year-old female who came to the emergency room after a presyncopal episode at home. She denies falling or injury. This is her second syncopal episode in the past month.Workup was done in the emergency department and patient was found to be bradycardic, heart rate 57. She also was found to be anemic hemoglobin 8.1. She was given 1 unit packed red blood cells, which she did not respond to repeat hemoglobin 7.9. She has had increased confusion and agitation over the past 48 hours that is showing improvement. Today she is at baseline mentation. Had some difficulty sleeping and resting at night mild confusion but that has resolved this morning. She has poor recollection of the past 2 days. White count stable. Improved to 2 L oxygen. Not on oxygen at home. Afebrile. Had some nausea and vomiting overnight along with diarrhea but those resolved today. Can downgrade from stepdown to MedSurg level of care. Problems addressed as follows: Sepsis Encephalopathy - Breathing better today. Crackles resolved in right lung field. On 2 L oxygen. Goal sats greater 90%. Wean as tolerated - Reviewed imaging from yesterday that shows negative MRI for stroke or meningitis. CT chest with right upper lobe pneumonia. - White count 13.4. Hemoglobin 9.9. Afebrile. Doing better. - Continue vancomycin and cefepime IV. Monitor kidney function closely for toxicity - Blood cultures obtained along with urine culture. #Symptomatic anemia #Generalized weakness #Syncope ? Hemoglobin improved to 9.9 after diuresis. No active signs of bleeding. - Repeat CBC, CMP, magnesium ordered for the morning - Carvedilol increased to 12.5 mg twice daily. Initiate amlodipine 5 mg. Hold on losartan given kidney dysfunction - Patient is on continuous cardiac telemetry. Patient has a known murmur, states its benign. ? No plan for scope at this time. Patient does not want scope. - Continue prophylactic Lovenox. Holding Plavix and aspirin. Has been 6 years since heart cath. No indication at this time. No stroke or TIA on imaging. #DDD #Intrathecal pain pump ?Intrathecal pump refilled. On low-dose morphine. Holding her Cymbalta and gabapentin. - Increase Seroquel to 50 mg nightly for sleep and anxiety #CKD ? Patient has an appointment in [place] with Dr. Egan filter press tender head, for CKD evaluation. It appears patient's kidney function has been elevated over the past several months. - BUN 68, creatinine 2.6. Potassium 3.1, magnesium 2.2 #PAD - on DAPT, pad pci over 1 year ago, discontinue until eitiology of anemia described - if no active blood loss would benefit from xarelto 2.5 bid and asa, patient states she is unable to afford Xarelto. #COPD ? Improving. Continue DuoNebs every 4 hours scheduled. Wean oxygen as tolerated #Diabetes, type II ?ACHS fingersticks, sliding scale insulin ordered. Glucose 224 this morning #RLS - Decrease ropinirole due to confusion Full code Regular diet VTE?Lovenox 40 mg subcu daily
--- NOTE | 2024-10-19 13:32 | PC.NURSE ---
arrived by w/c from ICU
--- NOTE | 2024-10-19 14:24 | PC.NURSE ---
materials assistant asked to place patient back on telemetry.
[2024-10-19] MEDS: AMLODIPINE 5MG TABLET 5 MG PO (14:40)
--- NOTE | 2024-10-19 15:57 | PC.NURSE ---
Family asked for the bed alarm to be off while they are present in the room. Alarm turned off and they said they would call out for help if needed.
[2024-10-19 16:12] LABS: POC Glucose,Bedside 219 (70-110)
--- NOTE | 2024-10-19 16:41 | PC.NURSE ---
Emesis times one and zofran given.
[2024-10-19] MEDS: PROCHLORPERAZINE 10MG/2ML VIAL 10 MG IV (17:04)
[2024-10-19] MEDS: MORPHINE 2MG/ML SYRINGE 2 MG IV (17:46)
[2024-10-19 20:28] LABS: POC Glucose,Bedside 199 (70-110)
[2024-10-19] MEDS: QUETIAPINE 100MG TABLET 50 MG PO (20:39)
[2024-10-19] MEDS: GABAPENTIN 100MG CAPSULE 100 MG PO (20:39)
[2024-10-19] MEDS: PAT OWN MED ***ATORVASTATIN 20MG 20 MG PO (20:39)
[2024-10-20] VITALS: BP 138/76; PULSE 80; PULSE 91; RESP 19; TEMP 36.9; O2SAT 91
[2024-10-20 02:18] VITALS: PULSE 80; PULSE 83
[2024-10-20] MEDS: IPRATROPIUM/ALBUTEROL 3 ML NEB IH ×2 (02:18→06:44)
--- NOTE | 2024-10-20 03:05 | PC.NURSE ---
Pt AOx4, pleasant. Had one episode of increased anxiety at the beginning of the shift. Vitals were stable, but HR increased into the 120s. Provider ordered vistaril, which pt reported helped to ease the anxiety. Pt's HR has decreased to WNL since then. She is currently resting in bed with eyes open. Respirations even and unlabored. Denies pain or any additional needs at this time. Bed is low, locked, and call light is in reach.
[2024-10-20 04:00] VITALS: BP 166/75; PULSE 80; PULSE 83; RESP 16; TEMP 36.9; O2SAT 96; BMI 24.0
[2024-10-20] MEDS: humaLOG 100 UNITS/ML 10ML VIAL (SSI) SUBCUT ×2 (05:46→12:18)
[2024-10-20 05:52] LABS: POC Glucose,Bedside 210 (70-110)
--- NOTE | 2024-10-20 06:16 | PC.NURSE ---
Picked up trash, linens, and refilled water.
[2024-10-20 06:45] VITALS: PULSE 85; PULSE 87; O2SAT 93
[2024-10-20] MEDS: UMECLIDINIUM IH (06:45)
[2024-10-20] MEDS: VILANTEROL IH (06:45)
[2024-10-20 07:33] LABS: Hematocrit 33.5 % (37.0-47.0); Hemoglobin 10.9 g/dL (12.2-16.2); Immature Granulocytes % 0.5 %; Mean Corpuscular HGB Conc 32.5 g/dL (31.8-35.4); Mean Corpuscular Hemoglobin 29.9 pg (27.0-31.2); Mean Corpuscular Volume 92.0 fl (81-99); Nucleated Red Blood Cells % 0 %; Platelet Count 263 K/mm3 (142-424); Red Blood Count 3.64 M/mm3 (4.20-5.40); Red Cell Distribution Width-SD 47.2 fL; White Blood Count 10.7 K/mm3 (4.8-10.8)
[2024-10-20 08:00] VITALS: BP 175/69; PULSE 90; PULSE 93; RESP 18; TEMP 36.8; O2SAT 95
[2024-10-20 08:03] LABS: Alanine Aminotransferase 42 U/L (12-78); Albumin Level 4.8 g/dl (3.5-5.0); Albumin/Globulin Ratio 1.3 (1.1-1.8); Alkaline Phosphatase 102 U/L (38-126); Anion Gap 19.0 mEq/L (5-15); Aspartate Amino Transferase 52 U/L (14-36); Bilirubin,Total 1.2 mg/dl (0.2-1.3); Blood Urea Nitrogen 77 mg/dl (7-17); Calcium 10.2 mg/dl (8.4-10.2); Carbon Dioxide 27 mmol/L (22.0-30.0); Chloride 96 mmol/L (98-107); Creatinine Clearance Estimated 23 mL/min (50-200); Creatinine,Serum 2.40 mg/dl (0.52-1.04); Estimated Glomerular Filt Rate 20 ml/min (>60); GFR (African American) 25 ML/MIN (>60); Globulin 3.7 g/dL (1.3-3.2); Glucose 215 mg/dl (74-100); Sodium 139 mmol/L (136-145); Total Protein,Serum 8.5 g/dl (6.3-8.2)
[2024-10-20 08:12] LABS: Potassium 3.0 mmoL/L (3.5-5.1)
[2024-10-20] MEDS: CEFEPIME HCL 1 GM in 0.9 % SODIUM CHLORIDE 50 ML IV (09:25)
[2024-10-20] MEDS: ROPINIROLE 1 MG 0.5 MG PO (09:27)
[2024-10-20] MEDS: GABAPENTIN 100MG CAPSULE 100 MG PO ×2 (09:31→12:18)
[2024-10-20] MEDS: CARVEDILOL 12.5MG TABLET 12.5 MG PO (09:31)
[2024-10-20 10:00] LABS: RBC Morphology Normal; Total Cells Counted 100
[2024-10-20 12:00] VITALS: BP 171/67; PULSE 85; PULSE 90; RESP 16; O2SAT 95
[2024-10-20 12:13] LABS: POC Glucose,Bedside 236 (70-110)
--- NOTE | 2024-10-20 13:02 | EXP.DC.SUM ---
General Admission date:: 10/15/24 Discharge date: 10/20/24 HPI HPI HPI: Mrs. Chester is a 64-year-old female who began developing weakness and came to the ED. The patient did have an episode of syncope/unresponsiveness that was very brief. Her brought her to the ED. She has had 2 episodes over the last month. Her CT scan of the brain and chest were normal. She notably had an initial hemoglobin of 8.1. She was also found to be Hemoccult positive. Her hemoglobin and hematocrit after 1 unit of PRBCs was 8.3 and 24.5. This was a decline. Her B12 level was 392 with folate 16.10. I do not see recent iron levels. The patient has had some weight loss. She did have diagnostic evaluation with Ronnie Kelsey MD with EGD and colonoscopy in March 2023. The EGD showed some esophageal dysmotility and moderate chronic gastritis. Her colonoscopy was aborted due to bowel prep. The patient now has tested positive fecal Hemoccult. She does report some gassiness and bloating. She has some early satiety. She has noted some bright red blood on the tissue which she attributes to hemorrhoids. She does state that her father had colon cancer in his 70s. She reports no abdominal pain, change in bowel habits, heartburn, reflux or dysphagia. She reports no nausea or belching. Hospital Course Hospital Course Hospital Course: Ms. Chester is a 64-year-old female who came to the emergency room after a presyncopal episode at home. She denies falling or injury. This is her second syncopal episode in the past month.Workup was done in the emergency department and patient was found to be bradycardic, heart rate 57. She also was found to be anemic hemoglobin 8.1. She was given 1 unit packed red blood cells, which she did not respond to repeat hemoglobin 7.9. She has had increased confusion and agitation during admission. Necessitated escalation to ICU due to hypoxia, pulmonary edema, acute encephalopathy and sepsis. Showed gradual improvement with broad-spectrum antibiotics. Urine culture returned positive for Morganella. Otherwise back to baseline mentation and on room air. Switch to oral antibiotics. Stable to discharge home with adjustments to her pain meds. Recommend close follow-up with nephrology this coming week, PCP, pulmonology and GI as an outpatient. Stable to discharge home with family. Problems addressed as follows: Sepsis Encephalopathy Urinary tract infection - Patient initially presented with syncope and weakness. Having some falls. Concern for medication side effect due to her carvedilol and her anemia. While admitted, she developed worsening agitation and confusion. Met sepsis criteria with tachycardia, fever, delirium and potential infection with pneumonia versus pulmonary edema on chest imaging and urine concerning for UTI. Initially was on Vapotherm. Able to wean to nasal cannula oxygen over 24 hours with diuresis. Initiated on broad-spectrum antibiotics with vancomycin and cefepime. Symptoms defervesced. White count peaked at 13.4, improved to 10.7 by day of discharge. Able to wean to room air 24 hours prior to discharge. Sputum and blood cultures remained negative. Due to her altered mental status, MRI was obtained to evaluate for meningitis. No findings of meningitis on MRI with contrast. Also no findings of acute stroke. Does have some chronic periventricular white matter changes. Urine culture ultimately grew Morganella. Sensitive to cephalosporins, tetracycline, fluoroquinolones. In light of her significant kidney dysfunction and questionable right upper lobe respiratory airspace disease, will transition to doxycycline 100 mg twice daily to complete 4 more days of therapy for a total of 7 days of antibiotics. #Symptomatic anemia #Generalized weakness #Syncope ? Hemoglobin 8.1 on presentation. Dropped to 7.9, due to bleeding, weakness, confusion, was transfused 1 unit. Had improvement. Increased to 10.9 by day of discharge with hemoconcentration and diuresis. No further signs of bleeding. Held aspirin and Plavix. Resumed blood pressure meds after initial stabilization. Continue carvedilol 12.5 mg twice daily, holding ARB due to kidney dysfunction. Initiated amlodipine. Increase to 10 mg daily at discharge. Patient still having elevated blood pressures. Patient has a known murmur, states its benign. GI was consulted for anemia. Initially plan for scope. When patient had her decompensation, scope was postponed. Recommend follow-up with GI as an outpatient to reevaluate. No active signs of bleeding and hemoglobin improved during admission. #DDD #Intrathecal pain pump ?Intrathecal pump recently increased within the week prior to admission. Dose was decreased during admission. Pump is also drained in order to obtain MRI and then refilled with the assistance of pain management. Continuing with low-dose per their most recent procedure note on 10/18/2024. Cymbalta and gabapentin were stopped during admission due to concern that metabolites and poor renal clearance were leading to many of her symptoms with movement disorder and confusion. Resume Cymbalta at half dose of 30 mg prior to discharge with good tolerance along with resumption of gabapentin 100 mg 3 times a day renally dosed. - Due to her agitation, Seroquel was administered for 2 nights. Patient had improved sleep. Held at discharge. May benefit from reconsideration as an outpatient. Would recommend 25 mg Seroquel nightly if necessitates resumption for sleep and anxiety. #CKD ? Patient has an appointment in [place] with Dr. Egan criminology teacher, for CKD evaluation. It appears patient's kidney function has been elevated over the past several months. - BUN 68, creatinine 2.6. Potassium 3.1, magnesium 2.2 #PAD: on DAPT, pad pci over 1 year ago, held during admission. Given patient's anemia and bruising on arms will discontinue at this time. Cardiology evaluated and recommended considering low-dose Xarelto. Has been recommended previously but states it is unaffordable. Hold on anticoagulation at this time. Reevaluate benefit and initiation as an outpatient #COPD: Improved. Baseline respiratory status. On room air with sats low to mid 90s on morning of discharge. Continue home regimen uterine and long-acting umeclidinium/vilanterol. #Diabetes, type II: ACHS fingersticks, sliding scale insulin ordered. Glucose 215 on morning of discharge. A1c last month of 5.8. Continue to hold on home medications at this time as risk of hypoglycemia outweighs benefit in my opinion. Needs repeat A1c in 2 months #RLS: Ropinirole decreased during admission. Okay to resume regular dose at discharge. Total time spent on discharge 45 minutes in counseling, documentation, chart review, and direct care with patient. Exam Data for Last 24 hours Vital signs and Labs for Last 24 Hours: Temp Pulse Resp BP Pulse Ox O2 Del Method O2 Flow Rate 98.3 F 85 16 171/67 H 95 Room Air 2 10/20/24 08:00 10/20/24 12:00 10/20/24 12:00 10/20/24 12:00 10/20/24 12:00 10/20/24 12:00 10/20/24 11:00 FiO2 70 10/19/24 06:00 Laboratory Results - last 24 hr 10/19/24 16:06: POC Glucose 219 H 10/19/24 20:14: POC Glucose 199 H 10/20/24 05:17: POC Glucose 210 H 10/20/24 06:50: WBC 10.7, RBC 3.64 L, Hgb 10.9 L, Hct 33.5 L, MCV 92.0, MCH 29.9, MCHC 32.5, RDW 14.0, Plt Count 263 D, MPV 9.7, Neut % (Auto) 87.0 H, Lymph % (Auto) 4.4 L, [place] % (Auto) 8.0, Eos % (Auto) 0.0 L, Baso % (Auto) 0.1, Neut # (Auto) 9.3 H, Lymph # (Auto) 0.5 L, [place] # (Auto) 0.9, Eos # (Auto) 0.0, Baso # (Auto) 0.0, Total Counted 100, Neutrophils % (Manual) 83 H, Lymphocytes % (Manual) 7 L, Monocytes % (Manual) 10 H, Platelet Estimate Normal, RBC Morphology Normal, Sodium 139, Potassium 3.0 L, Chloride 96 L, Carbon Dioxide 27, Anion Gap 19.0 H, BUN 77 H, Creatinine 2.40 H, Estimated Creat Clear 23, Estimated GFR 20 L, Est GFR ( Amer) 25 L, Glucose 215 H, Calcium 10.2, Total Bilirubin 1.2, AST 52 H D, ALT 42, Alkaline Phosphatase 102, Total Protein 8.5 H, Albumin 4.8, Globulin 3.7 H, Albumin/Globulin Ratio 1.3 10/20/24 12:05: POC Glucose 236 H I & O for Last 24 hours: Intake & Output 10/17/24 10/18/24 10/19/24 10/20/24 23:59 23:59 23:59 23:59 Intake Total 440 / 440 700 / 750 494 / 494 240 / 240 Output Total 1999 / 1999 2049 / 2249 800 / 800 400 / 400 Balance -1560 / -1560 -1350 / -1500 -306 / -306 -160 / -160 Weight 67.948 kg 65.8 kg 61.3 kg 61.552 kg Microbiology Reports for the Last 24 Hours: Microbiology 10/18/24 09:33 Nose - Nasal MRSA Culture - Final Negative 10/18/24 06:41 Rectum CRE Surveillance Culture - Final Negative 10/18/24 06:07 Urine,Catheterized Urine Culture - Final Morganella morganii 10/18/24 07:20 Blood Blood Culture - Preliminary NO GROWTH AFTER 48 HOURS 10/18/24 07:10 Blood Blood Culture - Preliminary NO GROWTH AFTER 48 HOURS 10/19/24 16:30 Sputum - Expectorated Sputum Gram Stain - Final Constitutional Constitutional: no acute distress, average body habitus, chronically ill appearing and cooperative *Routine HEENT Exam Head: Present normocephalic Eye: Present EOMI and PERRL ENT: Present mucous membranes moist *Routine Neck Exam Neck: Present supple; Absent lymphadenopathy *Routine Respiratory Exam Respiratory: Present CTA bilaterally; Absent rhonchi, wheezes or crackles *Routine Cardiovascular Exam Cardiovascular: Present RRR *Routine Abdominal Exam Abdominal: Present soft and normoactive bowel sounds; Absent tenderness *Routine Rectal Exam Patient deferred: visual exam *Routine Exam Patient deferred: external exam *Routine Extremities Exam Extremities: Absent cyanosis, clubbing or edema *Routine Skin Exam Skin: Present intact and warm; Absent rash Comments: Senile purpura/petechial lesion bilateral arms. Nonblanching in character *Routine Neurological Exam Neurological: Present alert, oriented X3, CN II-XII intact, moving all extremities and normal speech; Absent altered mental status Results Data Completed and Pending Labs on day of discharge: Labs from last 24 hours 10/20/24 10/20/24 10/20/24 12:05 06:50 05:17 WBC 10.7 RBC 3.64 L Hgb 10.9 L Hct 33.5 L MCV 92.0 MCH 29.9 MCHC 32.5 RDW 14.0 Plt Count 263 D MPV 9.7 Neut % (Auto) 87.0 H Lymph % (Auto) 4.4 L [place] % (Auto) 8.0 Eos % (Auto) 0.0 L Baso % (Auto) 0.1 Neut # (Auto) 9.3 H Lymph # (Auto) 0.5 L [place] # (Auto) 0.9 Eos # (Auto) 0.0 Baso # (Auto) 0.0 Total Counted 100 Neutrophils % (Manual) 83 H Lymphocytes % (Manual) 7 L Monocytes % (Manual) 10 H Platelet Estimate Normal RBC Morphology Normal Sodium 139 Potassium 3.0 L Chloride 96 L Carbon Dioxide 27 Anion Gap 19.0 H BUN 77 H Creatinine 2.40 H Estimated Creat Clear 23 Estimated GFR 20 L Est GFR ( Amer) 25 L Glucose 215 H POC Glucose 236 H 210 H Calcium 10.2 Total Bilirubin 1.2 AST 52 H D ALT 42 Alkaline Phosphatase 102 Total Protein 8.5 H Albumin 4.8 Globulin 3.7 H Albumin/Globulin Ratio 1.3 10/19/24 10/19/24 20:14 16:06 WBC RBC Hgb Hct MCV MCH MCHC RDW Plt Count MPV Neut % (Auto) Lymph % (Auto) [place] % (Auto) Eos % (Auto) Baso % (Auto) Neut # (Auto) Lymph # (Auto) [place] # (Auto) Eos # (Auto) Baso # (Auto) Total Counted Neutrophils % (Manual) Lymphocytes % (Manual) Monocytes % (Manual) Platelet Estimate RBC Morphology Sodium Potassium Chloride Carbon Dioxide Anion Gap BUN Creatinine Estimated Creat Clear Estimated GFR Est GFR ( Amer) Glucose POC Glucose 199 H 219 H Calcium Total Bilirubin AST ALT Alkaline Phosphatase Total Protein Albumin Globulin Albumin/Globulin Ratio Preliminary micro results at discharge 10/18/24 07:20 Blood Culture - Preliminary Blood NO GROWTH AFTER 48 HOURS 10/18/24 07:10 Blood Culture - Preliminary Blood NO GROWTH AFTER 48 HOURS DS: Diagnosis Discharge Diagnosis (1) Symptomatic anemia: Status: Acute Code(s): D64.9 - Anemia, unspecified (2) Generalized weakness: Status: Acute Code(s): R53.1 - Weakness (3) Syncope: Status: Acute Code(s): R55 - Syncope and collapse (4) CKD (chronic kidney disease): Status: Acute Code(s): N18.9 - Chronic kidney disease, unspecified (5) Murmur: Status: Acute Code(s): R01.1 - Cardiac murmur, unspecified (6) CAD (coronary artery disease): Status: Chronic Code(s): I25.10 - Atherosclerotic heart disease of [place] coronary artery without angina pectoris Qualifiers: Associated angina: without angina Coronary Disease-Associated Artery/Lesion type: [place] artery [place] vs. transplanted heart: [place] heart Qualified Code(s): I25.10 - Atherosclerotic heart disease of [place] coronary artery without angina pectoris (7) DM (diabetes mellitus): Status: Chronic Code(s): E11.9 - Type 2 diabetes mellitus without complications Qualifiers: Diabetes mellitus complication status: without complication Diabetes mellitus chcf insulin use: without chcf use Diabetes mellitus type: type 2 Qualified Code(s): E11.9 - Type 2 diabetes mellitus without complications (8) PAD (peripheral artery disease): Status: Chronic Code(s): I73.9 - Peripheral vascular disease, unspecified (9) Acute metabolic encephalopathy: Status: Acute Code(s): G93.41 - Metabolic encephalopathy (10) Encephalopathy: Status: Acute Code(s): G93.40 - Encephalopathy, unspecified (11) Acute respiratory failure with hypoxia: Status: Acute Code(s): J96.01 - Acute respiratory failure with hypoxia (12) Pneumonia: Status: Acute Code(s): J18.9 - Pneumonia, unspecified organism (13) UTI (urinary tract infection): Status: Acute Code(s): N39.0 - Urinary tract infection, site not specified (14) Sepsis due to gram-negative UTI: Status: Acute Code(s): A41.50 - Gram-negative sepsis, unspecified; N39.0 - Urinary tract infection, site not specified (15) Infection due to Morganella species: Status: Acute Code(s): A48.8 - Other specified bacterial diseases Meds Home Medications and Allergies Home Medications ?Medication ?Instructions ?Recorded ?Confirmed ?Type albuterol sulfate 90 mcg/actuation 2 puff inhalation Q6HP PRN 07/02/21 10/16/24 History aerosol inhaler Shortness Of Breath Or Wheezing losartan 100 mg tablet 100 mg PO DAILY #30 tabs 08/09/24 10/16/24 Rx atorvastatin 20 mg tablet 20 mg PO DAILY 09/18/24 10/16/24 History magnesium oxide 400 mg PO DAILY 09/18/24 10/16/24 History ropinirole 1 mg tablet 1 mg PO HS 09/18/24 10/16/24 History umeclidinium 62.5 mcg-vilanterol 1 inh inhalation DAILY 10/02/24 10/16/24 History 25 mcg/actuation powdr for inhalation (Anoro Ellipta) ropinirole 1 mg tablet 0.5 mg PO DAILY 10/16/24 10/16/24 History amlodipine 10 mg tablet 10 mg PO DAILY #30 tabs 10/20/24 Rx carvedilol 25 mg tablet (Coreg) 12.5 mg (1/2 x 25 mg) PO BID #60 10/20/24 10/16/24 Rx tabs doxycycline hyclate 100 mg capsule 100 mg PO BID 4 days #8 caps 10/20/24 Rx duloxetine 30 mg capsule,delayed 30 mg PO DAILY 30 days #30 caps 10/20/24 Rx release gabapentin 100 mg capsule 100 mg PO TID #90 caps 10/20/24 Rx gabapentin 100 mg capsule 100 mg PO TID 30 days #90 caps 10/20/24 Rx ondansetron 4 mg disintegrating 4 mg PO Q8H PRN nausea and 10/20/24 Rx tablet vomiting #20 tabs pantoprazole 40 mg tablet,delayed 40 mg PO HSP PRN Acid Reflux #30 10/20/24 Rx release tabs New Prescriptions to Start Prescriptions: amlodipine Natalia,Naveen doxycycline hyclate Natalia,Naveen duloxetine Natalia,Naveen gabapentin Natalia,Naveen gabapentin Natalia,Naveen ondansetron Natalia,Naveen pantoprazole Natalia,Naveen Allergies Allergy/AdvReac Type Severity Reaction Status Date / Time menthol (From LidoPatch) Allergy Unknown SKIN RASH Verified 10/15/24 19:13 lidocaine AdvReac Unknown SKIN RASH Verified 10/15/24 19:13 Discharge Plan Disposition Patient Disposition: Home Health Service Condition: Fair Discharge Order Discharge Orders: Discharge Order (Routine); Ordered 10/20/24 Ordered By: Naveen Fisher Follow up Plan Follow up with: Oscar Parsons II, MD [Staff Physician, Gastroenterology] - Enter time for follow up Referral Note: please call for appointment Minda Miller MD [Physician, Pulmonology] - Enter time for follow up Referral Note: please call for appointment Fiorella Nichols APRN [Primary Care Provider, Medical] - Enter time for follow up Referral Note: please call for appointment Prescriptions/Medication Reconciliation: New gabapentin 100 mg Capsule 100 mg PO TID 30 Days Qty: 90 0RF duloxetine 30 mg Capsule,Delayed Release(Dr/Ec) 30 mg PO DAILY 30 Days Qty: 30 0RF amlodipine 10 mg tablet 10 mg PO DAILY Qty: 30 0RF pantoprazole 40 mg Tablet,Delayed Release (Dr/Ec) 40 mg PO HSP PRN (Reason: Acid Reflux) Qty: 30 0RF doxycycline hyclate 100 mg capsule 100 mg PO BID 4 Days Qty: 8 0RF ondansetron 4 mg tablet,disintegrating 4 mg PO Q8H PRN (Reason: nausea and vomiting) Qty: 20 0RF gabapentin 100 mg capsule 100 mg PO TID Qty: 90 0RF Continued albuterol sulfate 90 mcg/actuation HFA aerosol inhaler 2 puff INHALATION Q6HP PRN (Reason: Shortness Of Breath Or Wheezing) umeclidinium-vilanterol [Anoro Ellipta] 62.5-25 mcg/actuation blister with device 1 inh inhalation DAILY ropinirole 1 mg tablet 1 mg PO HS atorvastatin 20 mg tablet 20 mg PO DAILY magnesium oxide 400 mg magnesium tablet 400 mg PO DAILY ropinirole 1 mg tablet 0.5 mg PO DAILY Changed carvedilol [Coreg] 25 mg tablet 12.5 mg PO BID Qty: 60 3RF Rx Instructions: must administer with a meal/food Held losartan 100 mg tablet 100 mg PO DAILY Qty: 30 5RF Hold Instructions: Resume on 09/25/24. Hold this medication until you follow-up with your PCP as your kidney function slowly improves. Discontinued gabapentin 600 mg tablet 600 mg PO TID duloxetine 60 mg capsule,delayed release(DR/EC) 60 mg PO DAILY omeprazole 40 MG capsule,delayed release(DR/EC) 40 mg PO DAILY aspirin 81 MG tablet,delayed release (DR/EC) 81 mg PO DAILY clopidogrel 75 mg tablet 75 mg PO DAILY Problem Reconciliation Problems Reviewed?: Yes Patient Discharge Instructions ACTIVITY: Continue current activity DIET: continue same diet Patient Instructions: Anemia, DI for Urinary Tract Infection (UTI), DI for Encephalopathy, Catheter-Associated Urinary Tract Infection, Stop Light Pneumonia Print Language: [place]ian Providers Primary Care Provider: Fiorella Nichols Admit Provider: Naveen Fisher Attending Provider: Naveen Fisher
--- NOTE | 2024-10-22 11:14 | SW/DCPLANNER ---
Addendum entered by Tati Vázquez 10/22/24 14:45: [facility] is able to accept patient for home health services. Kashif Murray Original Note: Spoke with patients on the phone. Patient's stated that she is doing well. Patient's stated that they are aware of her upcoming appointments and have called to schedule them. Patient's stated that they were able to get her new medicine picked up. Patient's stated that they are interested in home health and that they dont have a preference in what agency i send patient's information to. I stated to patient's that i will call and let him know if [facility] can accept patient. Kashif Murray
[2024-10-22 12:42] LABS: POC Glucose,Bedside 143 (70-110)
--- NOTE | 2024-10-24 08:27 | PC.NURSE ---
Peripheral smear forwarded to hospitalist.
== END 2024-10-20 14:28 | disposition home health service (06) | DRG 811 ==
LOC: ER 19:19 → 2ND 21:57 → ICU 10-18 03:39 → 2ND 10-19 13:28
PROVIDERS: Internal Medicine; Internal Medicine Gastroenterology; Internal Medicine Pulmonary Disease; Student in an Organized Health Care Education/Training Program; Admitting Provider Internal Medicine Adolescent Medicine; Emergency Provider Emergency Medicine; PCP Nurse Practitioner Family; Visit Provider Internal Medicine Adolescent Medicine
PROC: 0DJD8ZZ Inspection of Lower Intestinal Tract, Via Natural or Artificial Opening Endoscopic (ICD-10-PCS; CPT 45378; principal; 2024-10-18 15:00)
DX: D64.9 Anemia, unspecified (principal); A41.50 Gram-negative sepsis, unspecified; G93.41 Metabolic encephalopathy; J18.9 Pneumonia, unspecified organism; J96.01 Acute respiratory failure with hypoxia; J44.0 Chronic obstructive pulmonary disease with (acute) lower respiratory infection; N39.0 Urinary tract infection, site not specified; D63.1 Anemia in chronic kidney disease; N18.9 Chronic kidney disease, unspecified; J43.9 Emphysema, unspecified; I25.10 Atherosclerotic heart disease of native coronary artery without angina pectoris; E78.2 Mixed hyperlipidemia; R01.1 Cardiac murmur, unspecified; E11.51 Type 2 diabetes mellitus with diabetic peripheral angiopathy without gangrene; E11.22 Type 2 diabetes mellitus with diabetic chronic kidney disease; G25.81 Restless legs syndrome; R29.6 Repeated falls; Z53.9 Procedure and treatment not carried out, unspecified reason; Z87.891 Personal history of nicotine dependence; Z79.899 Other long term (current) drug therapy; Z79.82 Long term (current) use of aspirin; Z79.02 Long term (current) use of antithrombotics/antiplatelets; Z88.4 Allergy status to anesthetic agent; Z88.8 Allergy status to other drugs, medicaments and biological substances; Z80.0 Family history of malignant neoplasm of digestive organs; Z97.8 Presence of other specified devices
CPT/HCPCS: 36415; 36430; 51702; 51798; 70450; 70553; 71045; 71250; 80053; 80061; 81001; 82272; 82607; 82728; 82746; 82803; 82962; 83540; 83550; 83735; 83880; 84100; 84145; 84484; 85007; 85014; 85018; 85025; 85044; 86850; 87040; 87070; 87081; 87086; 87088; 87186; 87205; 87633; 93005; 94640; 94760; 94761; 97163; A9576; G0328; J0131; J0692; J0696; J0780; J1200; J1650; J1885; J1938; J1939; J2060; J2270; J2359; J2405; J2765; J2919; J3372; J3475; J7050; J7120; P9016

== ENCOUNTER 2024-11-06 12:52 | Outpatient (CLI) | payer MEDICARE, SELFPAY ==
--- OUTSIDE RECORDS SUMMARY | 2024-10-24 16:00 | XMS_ITS | Encounter Summary ---
Author Organization [facility] Address [address] [place] [id number] Care Team Providers Care Crane Man Name Role Phone Tin Cutler MD Primary Care Provider Reason for Referral * Consultation (Routine) - Authorized Specialty Diagnoses / Procedures Referred By Contac t Referred To Contact Diagnoses Acute kidney injury (CMS/HCC) Eagle Egan MD [address] [place] [phone] Phone: tel: fax: Referral ID Status Reason Start Date Expiration Date V isits Requested Visits Authorized [id number] Authorized 10/24/2024 04/25/2026 1 1 Reason for Visit * Reason Comments Consult * Consultation (Routine) - Closed Specialty Diagnoses / Procedures Referred By Contac t Referred To Contact Nephrology Diagnoses Acute renal failure, unspecified acute renal failure type (CMS/HCC) Fiorella Nichols, BELT CUTTER [address] [address] Phone: tel: fax: [facility] Metabolism [address], [address] [place] [address] Phone: tel: fax: Referral ID Status Reason Start Date Expiration Date V isits Requested Visits Authorized [id number] Closed Specialty Services Required 10/03/2024 04/04/2026 1 1 Encounter Details Date Type Department Care Team (Latest Contact Info) Description 10/24/2024 4:00 PM EDT Office Visit [facility] Nephrology, Bone & Mineral Metabolism [address], [address] [place] [address] Eagle Egan MD [address] [place] [address] Acute kidney injury (CMS/HCC) (Primary [...] chart review, the patient was hospitalized at [facility] early September 2024 for SOCORRO likely secondary to severe dehydration secondary to intractable nausea, vomiting and diarrhea. Her creatinineupon discharge was 2.9 with eGFR 16, and she was restarted back on losartan and referral sent to [facility] for further evaluation. She continues to have poor appetite and poor oral intake. Early October 2024, she had a syncopal episode requiring hospitalization at [facility] x5 days, where she was treated with [...] creatinine on 10/20/2024, from recent hospitalization at [facility] was2.4 with EGFR of 20. Likely cause [...] follow-up with Dr. Egan/Nephrology Clinic at her [facility] in 1-2 months with repeat lab Recommendations and plan: - encourage by mouth intake - continue to hold losartan and metformin - holding Jardiance for now - repeat lab in 1-2 months prior to follow-up at [facility] nephrology Clinic - follow-up with GI clinic [...] Procedure Laterality Date APPENDECTOMY N/A Appendectomy from [facility] CAROTID ENDARTERECTOMY N/A Endarterectomy Carotid Artery from [facility] CARPAL TUNNEL RELEASE N/A Neuroplasty Median Nerve At Carpal Tunnel from [facility] CHOLECYSTECTOMY N/A Cholecystectomy from [facility] CORONARY ANGIOPLASTY Left Coronary Angiography With Concomitant Left Heart Catheterization from [facility] OTHER SURGICAL HISTORY N/A Supracervical Hysterectomy With Unilateral Removal Of Tube And Ovary from [facility] TONSILLECTOMY N/A Tonsillectomy from [facility] [3] Family History Problem Relation Name Age of Onset Coronary artery disease Mother Diabetes Mother Conversions - Other Mother Oat cell carcinoma Conversions - Other Father CAD (coronary artery disease), [place] coronary artery Stroke Father Diabetes Father Colon cancer Father Hodgkin's lymphoma Sister Heart attack Sister Conversions - Other Brother CAD (coronary artery disease), [place] coronary artery Diabetes Brother Thyroid cancer Brother [...] documented in this encounter Plan of Treatment Scheduled Orders Name Type Priority Associated Diagnoses Orde r Schedule CBC W/O Differential Lab Routine Acute kidney injury (CMS/HCC) Expected: 12/09/2024 (Approximate), Expires: 04/28/2026 Urinalysis with reflex microscopic (Culture NOT Included) Lab Routine Acute kidney injury ([facility]) Expected: 12/09/2024 (Approximate), Expires: 04/28/2026 Albumin-creatinine ratio, urine, random Lab Routine Acute kidney injury ([facility]) Expected: 12/09/2024 (Approximate), Expires: 04/28/2026 Protein, Random, Urine with Creatinine Lab Routine Acute kidney injury ([facility]) Expected: 12/09/2024 (Approximate), Expires: 04/28/2026 Renal Function Panel, Plasma Lab Routine Acute kidney injury ([facility]) Expected: 12/09/2024 (Approximate), Expires: 04/28/2026 Scheduled Referrals Name Type Priority Associated Diagnoses Order Schedule Follow Up Nephrology Outpatient Referral Routine Acute kidney injury ([facility]) Expected: 12/25/2024 (Approximate), Expires: 11/24/2025 documented as of this encounter Visit Diagnoses Diagnosis Acute kidney injury ([facility])- Primary Hypertension, unspecified type Iron deficiency anemia, unspecified iron deficiency anemia type Other hyperlipidemia documented in this encounter Additional Health Concerns Assessment Noted Time A fall risk assessment has been complete d for the patient 10/24/2024 4:02 PM EDT A Body Mass Index follow-up plan has been documented for the patient 10/25/2024 10:08 AM EDT documented as of this encounter Care Teams Crane Man Relationship Specialty Start Date End Date Tin Cutler MD [address] [address] [place] [address] PCP - General 08/29/20 documented as of this encounter
--- OUTSIDE RECORDS SUMMARY | 2024-11-06 12:54 | XMS_ITS | Encounter Summary ---
Author Organization [facility] Address [address] [place] [id number] Care Team Providers Care Brand Advocate Name Role Phone Tin Cutler MD Primary Care Provider [phone] Reason for Visit * Reason Onset Date Comments HCN - Patient Message 11/02/2024 Encounter Details Date Type Department Care Team ([facility] Contact Info) Description 11/02/2024 Telephone [facility] Nephrology, Bone & Mineral Metabolism [address], [address] [place] [address] Eagle Egan MD [address] [place] [address] HCN - Patient Message Social History Tobacco Use Types Packs/Day Years [...] encounter Miscellaneous Notes * Telephone Encounter - Elva Wood - 11/02/2024 4:41 PM EDT Clinical Concern/Question Reason for Call: calling to inform they will get lab [facility]. Best contact number: [phone] Optimal time of day to reach caller: ANYTIME Additional comments/information from caller: Note: Please do not reply to this message. Follow-up communication and further actions as a result of this message need to be communicated with the patient directly, if the patient is not active onMyChart. If the patient is active on MyChart, they will receive notification of the communication/outcome via [employer]. documented in this encounter Plan of Treatment Not on file documented as of this encounter Visit Diagnoses Not on filedocumented in this encounter Additional Health Concerns Assessment Noted Time A fall risk assessment has been complete d for the patient 10/24/2024 4:02 PM EDT A Body Mass Index follow-up plan has been documented for the patient 10/25/2024 10:08 AM EDT documented as of this encounter Care Teams Brand Advocate Relationship Specialty Start Date End Date Tin Cutler MD [address] [place] [address] PCP - General 08/29/20 documented as of this encounter
--- OUTSIDE RECORDS SUMMARY | 2024-11-06 12:54 | XMS_ITS | Encounter Summary ---
Author Organization [facility] Address [address] [place] [address] Care Team Providers Care Dental Chair Assembler Name Role Phone Tin Cutler MD Primary Care Provider [phone] Encounter Details Date Type Department Care Team (Latest Contact Info) Description 10/24/2024 Travel Social History Tobacco Use Types Packs/Day Years [...] documented as of this encounter Care Teams Dental Chair Assembler Relationship Specialty Start Date End Date Tin Cutler MD [address] [address] [place] [address] PCP - General 08/29/20 documented as of this encounter
--- OUTSIDE RECORDS SUMMARY | 2024-11-06 12:54 | XMS_ITS | Clinical Summary ---
Author Organization [facility] Address [address] [place] [address] Care Team Providers Care User Support Specialist Name Role Phone Tin Cutler MD Primary Care Provider [phone] Allergies Active Allergy Reactions Criticality Noted Date Comments Lidocaine Rash,Unknown - Patie nt states they do not know rxn details Low 08/23/2018 Menthol Unknown - Patient st ates they do not know rxn details Low 08/23/2018 Medications magnesium oxide (Mag-Ox) 400 (240 Mg) MG tablet Take 1 tablet by mouth daily. Active amLODIPine (Norvasc) 10 MG tablet Take 1 tablet by mouth daily. Active albuterol 108 (90 Base) MCG/ACT inhaler Inhale 2 puffs 4 times a day. Active atorvastatin (Lipitor) 20 MG tablet Take 1 tablet by mouth daily. Active ondansetron (Zofran) 4 MG tablet Take 1 tablet by mouth every 8 hours as needed for nausea or vomiting. Active pantoprazole (Protonix) 40 MG EC tablet Take 1 tablet by mouth daily before breakfast. Do not crush, chew, or split. Active carvedilol (Coreg) 12.5 MG tablet Take by mouth 2 times a day with meals. Active rOPINIRole (Requip) 1 MG tablet Take 1 tablet by mouth 2 times a day. Active gabapentin (Neurontin) 100 MG capsule Take 1 capsule by mouth 3 times a day. Active DULoxetine (Cymbalta) [address] capsule Take 1 capsule by mouth daily. Do not crush or chew. Active empagliflozin (Jardiance) 10 MG Take by mouth daily. Active Umeclidinium-Vi lanterol (Anoro Ellipta) 62.5-25 MCG/ACT aerosol powder aerosol powder Inhale 1 Inhalation daily. Active Multiple Vitamins-Minera ls (multivitamin with iron-minerals) liquid Take by mouth daily. Active cetirizine (ZyrTEC) 10 MG tablet Take 1 tablet by mouth daily. Active Active Problems Problem Noted Date Diagnosed Date Acute kidney injury 10/25/2024 Hypertension 10/25/2024 Iron deficiency anemia 10/25/2024 Other hyperlipidemia 10/25/2024 Encounters Date Type Department Care Team Description 11/02/2024 Telephone [facility] Nephrology, Bone & Mineral Metabolism [address], [address] [place] [address] Eagle Egan MD HCN - Patient Message 10/24/2024 4:00 PM EDT Office [facility] Nephrology, Bone & Mineral Metabolism [address] [facility], [address] [place] [address] Eagle Egan MD Acute kidney injury (CMS/HCC) (Primary Dx); Hypertension, unspecified type; Iron deficiency anemia, unspecified iron deficiency anemia type; Other hyperlipidemia 10/24/2024 Travel 10/12/2024 Telephone [facility] Nephrology, Bone & Mineral Metabolism [address], [address] [place] [address] De AndaAlize 10/09/2024 Orders Only [facility] [address] [place] [address] Solange Brothers SOCORRO (acute kidney injury) (CMS/HCC) (Primary Dx); Vitamin D insufficiency 10/03/2024 [facility] [address] [place] [address] Fiorella Nichols APRN Acute renal failure, unspecified acute renal failure type (CMS/HCC) (Primary Dx) from Last 3 Months Family History Medical History Relation Name Comments Conversions - Other Brother 1 CAD (cor onary artery disease), [place] coronary artery Diabetes Brother 2 Thyroid cancer Brother 3 Colon cancer Father Conversions - Other Father CAD (cor onary artery disease), [place] coronary artery Diabetes Father Stroke Father No Known Problems Father's Brother No Known Problems Father's Sister No Known Problems Maternal Grandfather No Known Problems Maternal Grandmother Conversions - Other Mother Oat cell carcinoma Coronary artery disease Mother Diabetes Mother No Known Problems Mother's Brother No Known Problems Mother's Sister No Known Problems Other No Known Problems Paternal Grandfather No Known Problems Paternal Grandmother Hodgkin's lymphoma Sister 1 Heart attack Sister 2 Relation Name Status Comments Brother 1 Brother 2 Brother 3 Father Father's Brother Father's Sister Maternal Grandfather Maternal Grandmother Mother Mother's Brother Mother's Sister Other Paternal Grandfather Paternal Grandmother Sister 1 Sister 2 Social History Tobacco [...] Mass Index 24.8 10/24/2024 3:35 PM EDT Plan of Treatment Health Maintenance Due Date Last Done Comments [facility]-Depression Screening 1961 [facility]-Diabetes: Hemoglobin A1C 1961 [facility]-HIV Screening 1961 [facility]-Hepatitis C Screening 1961 [facility]-Medicare Annual Wellness (AWV) 1961 [facility]-Infant/Child/Adol SDOH Screenings 1961 Diabetes: Dental Exam 1971 [facility]Y- SDOH Screenings 1979 [facility]-Adult SDOH Screenings 1979 [facility]-DTaP,Tdap,and Td Vaccines (1 - Tdap) 01/22/1980 [facility]-Pneumococcal Vaccine: 50+ Years (1 of 2 - PCV) 01/22/1980 [facility]-Pap Smear 1982 [facility]-Cervical Cancer Screening 1991 [facility]Y-HPV/Cotest 1991 CT Colonography 2006 Colonoscopy 2006 FIT-DNA 2006 FIT 2006 FOBT 2006 Sigmoidoscopy 2006 [facility]-Colorectal Cancer Screening 2006 [facility]-Breast Cancer Screening 2011 [facility]Y-Zoster Vaccines (1 of 2) 2011 [facility]-RSV Vaccine: 60+ Years or (1 - Risk 60-74 years 1-dose series) 2021 [id number] Vaccine ( season) 2023 04/27/2021, 06/26/2020 [facility]-Influenza Vaccine (#1) 12/17/202402/14, 02/20/2019, 01/24/2018, Additional history exists HPV Vaccines Aged Out No longer eligi [...] patient's age to complete this topic Insurance [facility] MEDICARE Care Teams User Support Specialist Relationship Specialty Start Date End Date Besson, Tin A, MD [address] [place] [address] [place] [address] PCP - General 08/29/20
--- OUTSIDE RECORDS SUMMARY | 2024-11-06 12:54 | XMS_ITS | Encounter Summary ---
Author Organization [facility] Address [address] [place] [address] Care Team Providers Care Air Technician Name Role Phone Tin Cutler MD Primary Care Provider [phone] Encounter Details Date Type Department Care Team ([facility] st Contact Info) Description 10/12/2024 Telephone [facility] Nephrology, Bone & Mineral Metabolism [address] [facility], [address] [place] [address] Alize De Anda [facility] [address] [place] [id number] Social History Tobacco Use Types Packs/Day Years [...] on filedocumented in this encounter Care Teams Air Technician Relationship Specialty Start Date End Date Tin Cutler MD [address] [place] [address] PCP - General 08/29/20 documented as of this encounter
--- OUTSIDE RECORDS SUMMARY | 2024-11-06 12:54 | XMS_ITS | Encounter Summary ---
Author Organization [facility] Address [address] [place] [id number] Care Team Providers Care [place] Seamer Name Role Phone Tin Cutler MD Primary Care Provider [phone] Reason for Referral * Consultation (Routine) - Closed Specialty Diagnoses / Procedures Referred By Contchuck t Referred To Contact Nephrology Diagnoses Acute renal failure, unspecified acute renal failure type (CMS/HCC) Fiorella Nichols APRN [address] [place] [address] [id number] Phone: tel: fax: [facility] Nephrology, Bone & Mineral Metabolism [address] [facility], [address] [place] [address] Phone: tel: fax: Referral ID Status Reason Start Date Expiration Date V isits Requested Visits Authorized [id number] Closed Specialty Services Required 10/03/2024 04/04/2026 1 1 Encounter Details Date Type Department Care Team (Late st Contact Info) Description 10/03/2024 Community [facility] [address] [place] [address] Fiorella Nichols APRN [address] [id number] Acute renal failure, unspecified acute renal failure [...] as of this encounter Plan of Treatment Scheduled Referrals Name Type Priority Associated Diagnoses Orde r Schedule Ambulatory referral to Nephrology Outpatient Referral Routine Acute renal failure, unspecified acute renal failure type (CMS/HCC) Expected: 10/10/2024, Expires: 04/06/2026 documented as of this encounter Visit Diagnoses Diagnosis Acute renal failure, unspecified acute renal failure type (CMS/HCC)- Primary documented in this encounter Care Teams [place] Seamer Relationship Specialty Start Date End Date Tin Cutler MD [address] [place] [address] PCP - General 08/29/20 documented as of this encounter
--- OUTSIDE RECORDS SUMMARY | 2024-11-06 12:54 | XMS_ITS | Encounter Summary ---
Author Organization [facility] Address [address] [place] [address] Care Team Providers Care Salesperson Neckties Name Role Phone Tin Cutler MD Primary Care Provider [phone] Encounter Details Date Type Department Care Team (Late st Contact Info) Description 06/15/2024 Orders Only External Location [address] [place] [address] Jess Krishna, RADHA [address] [facility] [address] [facility] [address] [place] [address] Social History Tobacco Use Types Packs/Day Years [...] 11:0 8 AM EST us Jess Krishna APRN IMG US PROCEDURES Jie l Result documented in this encounter Visit Diagnoses Not on filedocumented in this encounter Care Teams Salesperson Neckties Relationship Specialty Start Date End Date Tin Cutler MD [address] [place], [place] [address] PCP - General 08/29/20 documented as of this encounter
--- OUTSIDE RECORDS SUMMARY | 2024-11-06 12:54 | XMS_ITS | Encounter Summary ---
Author Organization [facility] Address [address] [place] [address] Care Team Providers Care Durable Medical Equipment Technician Name Role Phone Tin Cutler MD Primary Care Provider [phone] Encounter Details Date Type Department Care Team (Late st Contact Info) Description 10/09/2024 [facility] Only [facility] [address] [place] [address] Solange Brothers SOCORRO (acute kidney injury) ([facility]) (Primary Dx); Vitamin D insufficiency Social History [...] of this encounter Plan of Treatment Scheduled Orders Name Type Priority Associated Diagnoses Orde r Schedule Renal Function Panel, Plasma Lab Routine SOCORRO (acute kidney injury) ([facility]) Expected: 10/09/2024 (Approximate), Expires: 04/10/2026 CBC W/O Differential Lab Routine SOCORRO (acute kidney injury) ([facility]) Expected: 10/09/2024 (Approximate), Expires: 04/10/2026 Vitamin D 25 Hydroxy Lab Routine SOCORRO (acute kidney injury) ([facility]) Vitamin D insufficiency Expected: 10/09/2024 (Approximate), Expires: 04/10/2026 PTH Intact Total Lab Routine SOCORRO (acute kidney injury) ([facility]) Vitamin D insufficiency Expected: 10/09/2024 (Approximate), Expires: 04/10/2026 Urinalysis with reflex microscopic (Culture NOT Included) Lab Routine SOCORRO (acute kidney injury) ([facility]) Expected: 10/09/2024 (Approximate), Expires: 04/10/2026 Protein, Random, Urine with Creatinine Lab Routine SOCORRO (acute kidney injury) ([facility]) Expected: 10/09/2024 (Approximate), Expires: 04/10/2026 Creatinine, Random, Urine Lab Routine SOCORRO (acute kidney injury) ([facility]) Expected: 10/09/2024 (Approximate), Expires: 04/10/2026 documented as of this encounter Visit Diagnoses Diagnosis SOCORRO (acute kidney injury) ([facility])- Primary Vitamin D insufficiency documented in this encounter Care Teams Durable Medical Equipment Technician Relationship Specialty Start Date End Date Tin Cutler MD [address] [place] [address] PCP - General 08/29/20 documented as of this encounter
--- OUTSIDE RECORDS SUMMARY | 2024-11-06 12:54 | XMS_ITS ---
Author Organization Unknown [facility] Start Date Provider Encounter for Check-up [id number] [facility]
[2024-11-06 13:00] LABS: Microscopic, Urine URINE MICROSCOPIC (MICROSCOPIC)
[2024-11-06 13:13] LABS: Hematocrit 28.3 % (37.0-47.0); Hemoglobin 9.7 g/dL (12.2-16.2); Mean Corpuscular HGB Conc 34.3 g/dL (31.8-35.4); Mean Corpuscular Hemoglobin 31.0 pg (27.0-31.2); Mean Corpuscular Volume 90.4 fl (81-99); Nucleated Red Blood Cells % 0 %; Platelet Count 232 K/mm3 (142-424); Red Blood Count 3.13 M/mm3 (4.20-5.40); Red Cell Distribution Width-SD 42.5 fL; White Blood Count 6.2 K/mm3 (4.8-10.8)
[2024-11-06 13:52] LABS: Bilirubin,Urine Negative (Negative); Color,Urine YELLOW (Yellow); Glucose,Urine (UA) 1+ (Negative); Ketones,Urine Negative (Negative); Leukocyte Esterase,Urine TRACE (Negative); PH,Urine 6.5 (5.0-8.5); Protein,Urine TRACE (Negative); Specific Gravity, Urine 1.015 (1.005-1.030); Urobilinogen,Urine 0.2 EU/dl (0.2)
[2024-11-06 14:01] LABS: Bacteria,Urine Trace /lpf
[2024-11-06 14:03] LABS: Albumin Level 4.1 g/dl (3.5-5.0); Anion Gap 13.7 mEq/L (5-15); Blood Urea Nitrogen 27 mg/dl (7-17); Calcium 9.6 mg/dl (8.4-10.2); Carbon Dioxide 26 mmol/L (22.0-30.0); Chloride 99 mmol/L (98-107); Creatinine,Serum 1.50 mg/dl (0.52-1.04); Estimated Glomerular Filt Rate 35 ml/min (>60); GFR (African American) 42 ML/MIN (>60); Glucose 245 mg/dl (74-100); Phosphorous 3.8 mg/dl (2.5-4.5); Potassium 4.7 mmoL/L (3.5-5.1); Sodium 134 mmol/L (136-145)
[2024-11-06 14:14] LABS: 25-OH Vitamin D, Total 31.3 ng/mL (30-100)
== END 2024-11-06 23:59 | disposition home or self-care (01) ==
PROVIDERS: PCP Internal Medicine Adolescent Medicine; Visit Provider Student in an Organized Health Care Education/Training Program
DX: N17.9 Acute kidney failure, unspecified (principal); R55 Syncope and collapse
CPT/HCPCS: 36415; 80069; 81001; 82306; 82570; 83970; 84156; 85027; 93270

== ENCOUNTER 2024-12-08 09:42 | Outpatient (CLI) | payer MEDICARE, SELFPAY ==
--- OUTSIDE RECORDS SUMMARY | 2024-10-24 16:00 | XMS_ITS | Encounter Summary ---
Author Organization [facility] Address [address] [place] [address] Care Team Providers Care Main Line Assembler Name Role Phone Tin Cutler MD Primary Care Provider [phone] Reason for Referral * Consultation (Routine) - Authorized Specialty Diagnoses / Procedures Referred By Contac t Referred To Contact Diagnoses Acute kidney injury (CMS/HCC) Eagle Egan MD [address] [place] [phone] Phone: tel: fax: Referral ID Status Reason Start Date Expiration Date V isits Requested Visits Authorized [id number] Authorized 10/24/2024 04/25/2026 1 1 Reason for Visit * Reason Comments Consult * Consultation (Routine) - Closed Specialty Diagnoses / Procedures Referred By Contac t Referred To Contact Nephrology Diagnoses Acute renal failure, unspecified acute renal failure type (CMS/HCC) Fiorella Nichols, INTERNAL SALESPERSON [address] [address] Phone: tel: fax: [facility] [place] [facility] [address], [address] [place] [address] Phone: tel: fax: Referral ID Status Reason Start Date Expiration Date V isits Requested Visits Authorized [id number] Closed Specialty Services Required 10/03/2024 04/04/2026 1 1 Encounter Details Date Type Department Care Team (Latest Contact Info) Description 10/24/2024 4:00 PM EDT Office Visit [facility] Nephrology, Bone & Mineral Metabolism [address], [address] [place] [address] Eagle Egan MD [address] [place] [address] Acute kidney injury (CMS/HCC) (Primary Dx); Hypertension, unspecified type; Iron deficiency anemia, unspecified iron deficiency anemia type; Other hyperlipidemia Social History Tobacco Use Types Packs/Day Years Used Date Smoking Tobacco: Former Cigarettes 1 22 S tarted: 1997 Smokeless Tobacco: Never Alcohol Use Standard Drinks/Week Comments No 0 (1 standard drink = 0.6 oz pur e alcohol) Comments Unknown Sex and Gender Information Value Date Recorded Sex Assigned at Not on file Legal Sex Female 7:15 PM EDT Gender Identity Not on file Sexual Orientation Not on file documented as of this encounter Last Filed Vital Signs Vital Sign Reading Time Taken Comments Blood Pressure - - Pulse - - Temperature - - Respiratory Rate - - Oxygen Saturation - - Inhaled Oxygen Concentration - - Weight 63.5 kg (140 lb) 10/24/2024 3:35 PM EDT Height 160 cm (5' 3 ) 10/24/2024 3:35 PM EDT Body Mass Index 24.8 10/24/2024 3:35 PM EDT documented in this encounter Miscellaneous Notes * Progress Notes - Zohreh Ortega MD - 10/24/2024 4:00 PM EDT Nephrology Outpatient Consult Note Reason for referral: elevated Creatinine Referring Provider: Fiorella Nichols APRN HPI: Dilia Chester is a 64 y.o. female with PMH of hypertension, dyslipidemia, coronary artery disease, COPD, type 2 diabetes, GERD, chronic mesenteric ischemia, renal artery stenosis, carotid artery stenosis status post right carotid endarterectomy 2018 who presented to the clinic today for evaluation of elevated creatinine Of note, the patient has baseline creatinine of 0.99 with EGFR of 64 from April 2024. Upon chart review, the patient was hospitalized at [facility] early September 2024 for SOCORRO likely secondary to severe dehydration secondary to intractable nausea, vomiting and diarrhea. Her creatinineupon discharge was 2.9 with eGFR 16, and she was restarted back on losartan and referral sent to [facility] for further evaluation. She continues to have poor appetite and poor oral intake. Early October 2024, she had a syncopal episode requiring hospitalization at [facility] x5 days, where she was treated with IV fluids and received 1 unit of blood for anemia and was advised to stop taking losartan and metformin upon discharge. Most recent labs from 10/20/2024 showing hemoglobin of 10.9, sodium 139, potassium 3.0, chloride 96, carbon dioxide is 27, BUN of 77, creatinine is 2.4, anion gap of 19, eGFR 20, A1c 5.8%, serum calcium level of 10.2, phosphorus of 8.1, magnesium of 2.2, serum iron level of 50, TIBC 374, iron saturation of 13%, ferritin of 116, normal LFTs,proBNP of 14 100, serum albumin 4.8, total cholesterol 157, LDL 48, B12 392, folic acid 18.1, normal thyroid panel, UA negative with trace proteinuria and glucosuria Her current medications are amlodipine 10 mg daily, Lipitor 20 mg daily, pantoprazole 40 mg daily, Coreg 12.5 mg twice daily, gabapentin 100 mg three times a day, duloxetine 30 mg daily, Jardiance 10mg daily, magnesium 400 mg daily, Anoro Ellipta daily with p.r.n. Zyrtec and albuterol Today, the patient is feeling okay, continues to have poor appetite, denied any abdominal pain or shortness of breath. Denies any urinary symptoms except for intermittent dysuria. No lower extremity swelling. I have personally reviewed records from referring provider and other consultants, summarized below. Denies hematuria, dysuria, abd pain, SOA, CP. Review of Systems Constitutional: Positive for decreased appetite. Negative for fever. Cardiovascular: Negative. Respiratory: Positive for cough. Musculoskeletal: Negative for joint pain. Gastrointestinal: Positive for anorexia and nausea. Negative for abdominal pain, diarrhea, dysphagia, excessive appetite and melena. REVIEW OF SYSTEMS A complete 14-point review of systems was obtained and is negative except as reported in the HPI Past Medical History[1] Surgical History[2] Family History[3] Social History Tobacco Use Smoking status: Former Current packs/day: 1.00 Average packs/day: 1 pack/day for 27.5 years (27.5 ttl pk-yrs) Types: Cigarettes Start date: 1997 Smokeless tobacco: Never Substance Use Topics Alcohol use: No Medications Current Medications[4] Allergies[5] PHYSICAL EXAMINATION Visit Vitals Ht 1.6 m (5' 3 ) Wt 63.5 kg (140 lb) BMI 24.80 kg/m?? Smoking Status Former BSA 1.68 m?? GA: well developed, well nourished, conversant, NAD EYES: Anicteric sclera, no injection, no discharge HENT: Head is normocephalic and atraumatic. Mucous membranes are moist. RESP: Normal resp effort. Lungs clear to auscultation bilaterally. CV: Heart RRR, no murmurs or rubs GI: Abdomen soft, non tender, and non distended. : No suprapubic tenderness, no CVA tenderness MSK/Ext: No edema. No joint swelling. No cyanosis or clubbing Skin: Multiple bruising upper extremities NEURO: Grossly intact. No focal deficits. Cooperative PSYCH: Appropriate mood and affect, AAO SKIN: Normal temperature. No rash or ulcers. No jaundice LAB AND IMAGING RESULTS Lab Results Component Value Date CREATININE 0.72 09/14/2018 CREATININE 0.72 09/13/2018 EGFR >60 09/14/2018 EGFR >60 09/14/2018 BUN 8 09/14/2018 BUN 13 09/13/2018 NA 132 (L) 09/14/2018 NA 139 09/13/2018 K 4.2 09/14/2018 K 4.2 09/13/2018 CL 96 (L) 09/14/2018 CL 103 09/13/2018 CO2 22 09/14/2018 CO2 24 09/13/2018 Lab Results Component Value Date ALBUMIN 3.8 09/12/2018 PHOS 2.4 (L) 09/14/2018 MG 1.1 (L) 09/14/2018 Lab Results Component Value Date WBC 15.49 (H) 09/13/2018 HGB 10.5 (L) 09/13/2018 HCT 30.9 (L) 09/13/2018 MCV 92 09/13/2018 PLT 245 09/13/2018 No results found for: CREATU , URINEPRO , UTPCR , ALBCREA No lab exists for component: ALB Renal Panel: Lab Results Component Value Date NA 132 (L) 09/14/2018 K 4.2 09/14/2018 CL 96 (L) 09/14/2018 CO2 22 09/14/2018 BUN 8 09/14/2018 CREATININE 0.72 09/14/2018 EGFR >60 09/14/2018 EGFR >60 09/14/2018 PHOS 2.4 (L) 09/14/2018 MG 1.1 (L) 09/14/2018 MBD: Lab Results Component Value Date PHOS 2.4 (L) 09/14/2018 CBC: Lab Results Component Value Date WBC 15.49 (H) 09/13/2018 RBC 3.35 (L) 09/13/2018 HGB 10.5 (L) 09/13/2018 HCT 30.9 (L) 09/13/2018 PLT 245 09/13/2018 MCV 92 09/13/2018 Iron studies: No results found for: TIBC Urinalysis: No results found for: URBC , WBCU , PROTUR No results found for: URINEPRO , CREATU , UTPCR , ALBCREA I have independently reviewed and interpreted the test results and discussed with patient. ASSESSMENT/PLAN Dilia Chester is a 64 y.o. female with PMH of hypertension, dyslipidemia, coronary artery disease, COPD, type 2 diabetes, GERD, chronic mesenteric ischemia, renal artery stenosis, carotid artery stenosis status post right carotid endarterectomy 2018 who presented to the clinic today for evaluation of elevated creatinine her baseline creatinine from April 2024 is 0.99 with EGFR of 64. Hermost recent creatinine on 10/20/2024, from recent hospitalization at [facility] was2.4 with EGFR of 20. Likely cause of her SOCORRO is multifactorial: pre-renal secondary to poor oral intake in the context of ongoing think of losartan and metformin # SOCORRO # CKD stage 2 - Baseline creatinine is 0.99 with EGFR of 64 from April 2024. She has CKD stage 2 likely relatedto her hypertension and type 2 diabetes. - SOCORRO Is likely prerenal secondary to poor oral intake . Creatinine on 10/20/2024 is 24, EGFR of 20 - likely cause of of her poor intake might be secondary to GI issues: Gastritis versus chronic mesenteric ischemia - electrolytes, acid/base, volume status: close to normal levels from Lab 10/20/2024 - Urinalysis: Trace proteinuria and glucosuria otherwise within normal limits - agree with discontinuing metformin and losartan - patient was advised to hold Jardiance till her kidney functions recover - encourage oral intake: Patient was advised to drink plenty of fluids - her will schedule an appointment with GI for further evaluation of her GI issues - advised to continue to refrain from NSAIDs - follow-up with Dr. Egan/Nephrology Clinic at her [facility] in 1-2 months with repeat lab Recommendations and plan: - encourage by mouth intake - continue to hold losartan and metformin - holding Jardiance for now - repeat lab in 1-2 months prior to follow-up at [facility] nephrology Clinic - follow-up with GI clinic patient Will assess renal function today by obtaining blood work/labs: Renal function panel, CBC, UA, UPCR, UACR, Vit D, PTH levels No change to medications RTC in 1-2 months with repeat renal panel Zohreh Ortega MD Orders Placed This Encounter Procedures Follow Up Nephrology Zohreh Ortega Nephrology/Critical Care PGY4 [1] Past Medical History: Diagnosis Date Abnormal colonoscopy CHF (congestive heart failure) (CMS/HCC) Esophageal reflux H/O heart artery stent Hyperlipidemia Hypertension Peripheral vascular obstructive disease (CMS/HCC) [2] Past Surgical History: Procedure Laterality Date APPENDECTOMY N/A Appendectomy from [facility] CAROTID ENDARTERECTOMY N/A Endarterectomy Carotid Artery from [facility] [facility] CARPAL TUNNEL RELEASE N/A Neuroplasty Median Nerve At Carpal Tunnel from [facility] CHOLECYSTECTOMY N/A Cholecystectomy from [facility] CORONARY ANGIOPLASTY Left Coronary Angiography With Concomitant Left Heart Catheterization from [facility] OTHER SURGICAL HISTORY N/A Supracervical Hysterectomy With Unilateral Removal Of Tube And Ovary from [facility] TONSILLECTOMY N/A Tonsillectomy from [employer] [3] Family History Problem Relation Name Age of Onset Coronary artery disease Mother Diabetes Mother Conversions - Other Mother Oat cell carcinoma Conversions - Other Father CAD (coronary artery disease), [place] coronary artery Stroke Father Diabetes Father Colon cancer Father Hodgkin's lymphoma Sister Heart attack Sister Conversions - Other Brother CAD (coronary artery disease), [place] coronary artery Diabetes Brother Thyroid cancer Brother No Known Problems Mother's Sister No Known Problems Mother's Brother No Known Problems Father's Sister No Known Problems Father's Brother No Known Problems Maternal Grandmother No Known Problems Maternal Grandfather No Known Problems Paternal Grandmother No Known Problems Paternal Grandfather No Known Problems Other [4] Current Outpatient Medications Medication Sig Dispense Refill albuterol 108 (90 Base) MCG/ACT inhaler Inhale 2 puffs 4 times a day. amLODIPine (Norvasc) 10 MG tablet Take 1 tablet by mouth daily. atorvastatin (Lipitor) 20 MG tablet Take 1 tablet by mouth daily. carvedilol (Coreg) 12.5 MG tablet Take by mouth 2 times a day with meals. cetirizine (ZyrTEC) 10 MG tablet Take 1 tablet by mouth daily. DULoxetine (Cymbalta) [address] capsule Take 1 capsule by mouth daily. Do not crush or chew. empagliflozin (Jardiance) 10 MG Take by mouth daily. gabapentin (Neurontin) 100 MG capsule Take 1 capsule by mouth 3 times a day. magnesium oxide (Mag-Ox) 400 (240 Mg) MG tablet Take 1 tablet by mouth daily. Multiple Vitamins-Minerals (multivitamin with iron-minerals) liquid Take by mouth daily. ondansetron (Zofran) 4 MG tablet Take 1 tablet by mouth every 8 hours as needed for nausea or vomiting. pantoprazole (Protonix) 40 MG EC tablet Take 1 tablet by mouth daily before breakfast. Do not crush, chew, or split. rOPINIRole (Requip) 1 MG tablet Take 1 tablet by mouth 2 times a day. (Patient taking differently: Take 1 tablet by mouth 2 times a day. 1/2 tab in am 1 tab in pm) Umeclidinium-Vilanterol (Anoro Ellipta) 62.5-25 MCG/ACT aerosol powder aerosol powder Inhale 1 Inhalation daily. No current facility-administered medications for this visit. [5] Allergies Allergen Reactions Lidocaine Rash and Unknown - Patient states they do not know rxn details Menthol Unknown - Patient states they do not know rxn details documented in this encounter Plan of Treatment Upcoming Encounters Date Type Department Care Team (Late st Contact Info) Description 12/12/2024 2:20 PM EDT Office Visit [facility], [facility] Mineral Metabolism [address], [address] [place] [id number] Eagle Egan MD [address] [place] [address] Scheduled Orders Name Type Priority Associated Diagnoses Orde r Schedule CBC W/O Differential Lab Routine Acute kidney injury ([facility]) Expected: 12/09/2024 (Approximate), Expires: 04/28/2026 Urinalysis with reflex microscopic (Culture NOT Included) Lab Routine Acute kidney injury ([facility]) Expected: 12/09/2024 (Approximate), Expires: 04/28/2026 Albumin-creatinine ratio, urine, random Lab Routine Acute kidney injury ([facility]) Expected: 12/09/2024 (Approximate), Expires: 04/28/2026 Protein, Random, Urine with Creatinine Lab Routine Acute kidney injury ([facility]) Expected: 12/09/2024 (Approximate), Expires: 04/28/2026 Renal Function Panel, Plasma Lab Routine Acute kidney injury ([facility]) Expected: 12/09/2024 (Approximate), Expires: 04/28/2026 Scheduled Referrals Name Type Priority Associated Diagnoses Order Schedule Follow Up Nephrology Outpatient Referral Routine Acute kidney injury ([facility]) Expected: 12/25/2024 (Approximate), Expires: 11/24/2025 documented as of this encounter Visit Diagnoses Diagnosis Acute kidney injury ([facility])- Primary Hypertension, unspecified type Iron deficiency anemia, unspecified iron deficiency anemia type Other hyperlipidemia documented in this encounter Additional Health Concerns Assessment Noted Time A fall risk assessment has been complete d for the patient 10/24/2024 4:02 PM EDT A Body Mass Index follow-up plan has been documented for the patient 10/25/2024 10:08 AM EDT documented as of this encounter Care Teams Main Line Assembler Relationship Specialty Start Date End Date Tin Cutler MD [address] [place] [address] PCP - General 08/29/20 11/12/24 documented as of this encounter
--- OUTSIDE RECORDS SUMMARY | 2024-12-08 09:47 | XMS_ITS | Encounter Summary ---
Author Organization [facility] Address [address] [place] [address] Care Team Providers Care Sprayer Operator Name Role Phone Tin Cutler MD Primary Care Provider [phone] Encounter Details Date Type Department Care Team (Late Contact Info) Description 10/12/2024 Telephone [facility] Nephrology, Bone & Mineral Metabolism [address], [address] [place] [address] Alize De Anda [facility] [address] [place] [address] Social History Tobacco Use Types Packs/Day Years [...] Department Care Team (Late Contact Info) Description 12/12/2024 2:20 PM EDT Office Visit [facility] Nephrology, Bone & Mineral Metabolism [address], [address] [place] [address] Eagle Egan MD [address] [place] [address] documented as of this encounter Visit Diagnoses Not on filedocumented in this encounter Care Teams Sprayer Operator Relationship Specialty Start Date End Date Tin Cutler MD [address] [place] [address] PCP - General 08/29/20 11/12/24 documented as of this encounter
--- OUTSIDE RECORDS SUMMARY | 2024-12-08 09:47 | XMS_ITS | Encounter Summary ---
Author Organization [facility] Address [address] [place] [address] Care Team Providers Care Meal Grinder Tender Name Role Phone Tin Cutler MD Primary Care Provider [phone] Encounter Details Date Type Department Care Team [...] Upcoming Encounters Date Type Department Care Team ( st Contact Info) Description 12/12/2024 2:20 PM EDT Office Visit [facility] Nephrology, Bone & Mineral Metabolism [address] [facility], [address] [place] [address] Eagle Egan MD [address] [place] [address] documented as of this encounter Visit Diagnoses Not on filedocumented in this encounter Additional Health Concerns Assessment Noted Time A fall risk assessment has been complete d for the patient 10/24/2024 4:02 PM EDT A Body Mass Index follow-up plan has been documented for the patient 10/25/2024 10:08 AM EDT documented as of this encounter Care Teams Meal Grinder Tender Relationship Specialty Start Date End Date Tin Cutler MD [address] [place] [address] PCP - General 08/29/20 11/12/24 documented as of this encounter
--- OUTSIDE RECORDS SUMMARY | 2024-12-08 09:47 | XMS_ITS | Clinical Summary ---
Author Organization [facility] Address [address] [place] [address] Care Team Providers Care School Superintendent Name Role Phone JuanitoFred Pauly HARRELL Primary Care Provider [phone] Allergies Active Allergy Reactions Criticality Noted Date [...] Encounters Date Type Department Care Team Description 11/30/2024 Telephone [facility] Nephrology, Bone & Mineral Metabolism [address] [facility], [address] [place] [address] Eagle Egan MD 11/02/2024 [facility] Nephrology, Bone & Mineral Metabolism [address] [facility], [address] [address] Eagle Egan MD HCN - Patient Message 10/24/2024 4:00 PM EDT Office Visit [facility] Nephrology, Bone & Mineral Metabolism [address] [facility], [address] [place] [address] Eagle Egan MD Acute kidney injury (CMS/HCC) (Primary Dx); Hypertension, unspecified type; Iron deficiency anemia, unspecified iron deficiency anemia type; Other hyperlipidemia 10/24/2024 Travel 10/12/2024 [facility] Nephrology, Bone & Mineral Metabolism [address] [facility], [address] [place] [address] Alize De Anda 10/09/2024 Orders Only [facility] [address] [place] [address] Solange Brothers SOCORRO (acute kidney injury) (CMS/HCC) (Primary Dx); Vitamin D insufficiency 10/03/2024 Community Orders [facility] [address] [place] [address] Fiorella Nichols APRN Acute renal failure, unspecified acute renal failure type (CMS/HCC) (Primary Dx) from Last 3 Months Family History Medical History Relation Name Comments Conversions - Other Brother 1 CAD (cor onary artery disease), [place] coronary artery Diabetes Brother 2 Thyroid cancer Brother 3 Colon cancer Father Conversions - Other Father CAD (cor onary artery disease), [place] coronary artery Diabetes Father Stroke Father No [...] 10/24/2024 3:35 PM EDT Plan of Treatment Upcoming Encounters Date Type Department Care Team (Late st Contact Info) Description 12/12/2024 2:20 PM EDT Office Visit [facility] Nephrology, Bone & Mineral Metabolism [address] [facility], [address] [place] [address] Eagle Egan MD [address] [place] [address] Health Maintenance Due Date Last [...] - Risk 60-74 years 1-dose series) 2021 [id number] Vaccine (3 - 2023- season) 2023 04/27/2021, 06/26/2020 [facility]-Influenza Vaccine (#1) [...] patient's age to complete this topic Insurance [facility] MEDICARE Care Teams School Superintendent Relationship Specialty Start Date End Date Fred Solomon DO [address] [place] [address] PCP - General 11/13/24
--- OUTSIDE RECORDS SUMMARY | 2024-12-08 09:47 | XMS_ITS | Encounter Summary ---
Author Organization [facility] Address [address] [place] [id number] Care Team Providers Care Needle Punch Operator Name Role Phone Tin Cutler MD Primary Care Provider [phone] Fred Solomon DO Primary Care Provider Reason for Visit * Reason Onset Date Comments HCN - Patient Message 11/02/2024 Encounter Details Date Type Department Care Team ([facility] st Contact Info) Description 11/02/2024 Telephone [facility] Nephrology, Bone & Mineral Metabolism [address] [facility], [address] [place] [address] Eagle Egan MD [address] [place] [address] HCN - Patient Message Social History [...] encounter Miscellaneous Notes * Telephone Encounter - Ana Maria Cordon - 11/13/2024 1:27 PM EDT Patient Phone Message Reason for Call: Pt's is requesting a call to obtain lab results. Best contact number and optimal time of day to reach caller: [phone] Note: Please do not reply to this message. Follow-up communication and further actions as a result of this message need to be communicated with the patient directly, if the patient is not active onMyChart. If the patient is active on MyChart, they will receive notification of the communication/outcome via MyChart. * Telephone Encounter - Elva Wood - 11/02/2024 4:41 PM EDT Clinical Concern/Question Reason for Call: calling to inform they will get lab work done at [facility] on Tuesday. Best contact number: [phone] Optimal time of day to reach caller: ANYTIME Additional comments/information from caller: Note: Please do not reply to this message. Follow-up communication and further actions as a result of this message need to be communicated with the patient directly, if the patient is not active onMyChart. If the patient is active on MyChart, they will receive notification of the communication/outcome via [employer], Inchart. documented in this encounter Plan of Treatment Upcoming Encounters Date Type Department Care Team (Late st Contact Info) Description 12/12/2024 2:20 PM EDT Office [facility] Nephrology, Bone & Mineral Metabolism [address] [facility], [address] [place] [address] Eagle Egan MD [address] [place] [phone] documented as of this encounter Visit Diagnoses Not on filedocumented in this encounter Additional Health Concerns Assessment Noted Time A fall risk assessment has been complete d for the patient 10/24/2024 4:02 PM EDT A Body Mass Index follow-up plan has been documented for the patient 10/25/2024 10:08 AM EDT documented as of this encounter Care Teams Needle Punch Operator Relationship Specialty Start Date End Date Tin Cutler MD [address] [place] [address] PCP - General 08/29/20 11/12/24 Fred Solomon DO [address] [place] [address] PCP - General 11/13/24 documented as of this encounter
--- OUTSIDE RECORDS SUMMARY | 2024-12-08 09:48 | XMS_ITS | Encounter Summary ---
Author Organization [facility] Address [address] [place] [address] Care Team Providers Care Jewel Setter Name Role Phone Tin Cutler MD Primary Care Provider [phone] Fred Solomon DO Primary Care Provider [phone] Reason for Referral * Consultation (Routine) - Closed Specialty Diagnoses / Procedures Referred By Naresh t Referred To Contact Nephrology Diagnoses Acute renal failure, unspecified acute renal failure type (CMS/HCC) Fiorella Nichols APRN [address] [address] Phone: tel: fax: [facility] Nephrology, Bone & Mineral Metabolism [address] [facility], [address] [place] [address] Phone: tel: fax: Referral ID Status Reason Start Date Expiration Date V isits Requested Visits Authorized [id number] Closed Specialty Services Required 10/03/2024 04/04/2026 1 1 Encounter Details Date Type Department Care Team (Late st Contact Info) Description 10/03/2024 Community [facility] Community [facility] [address] [place] [address] Fiorella Nichols APRN [address] [address] Acute renal failure, unspecified acute [...] Description 12/12/2024 2:20 PM EDT Office Visit [facility] Nephrology, Bone & Mineral Metabolism [address] [facility], [address] [place] [address] Eagle Egan MD [address] [place] [address] Scheduled Referrals Name Type Priority Associated Diagnoses Orde r Schedule Ambulatory referral to Nephrology Outpatient Referral Routine Acute renal failure, unspecified acute renal failure type (CMS/HCC) Expected: 10/10/2024, Expires: 04/06/2026 documented as of this encounter Visit Diagnoses Diagnosis Acute renal failure, unspecified acute renal failure type (CMS/HCC)- Primary documented in this encounter Care Teams Jewel Setter Relationship Specialty Start Date End Date Tin Cutler MD [address] [facility] [address] [place] [address] PCP - General 08/29/20 11/12/24 Fred Solomon DO [address] [place] [address] [place], [place] [address] PCP - General 11/13/24 documented as of this encounter
--- OUTSIDE RECORDS SUMMARY | 2024-12-08 09:48 | XMS_ITS | Encounter Summary ---
Author Organization [facility] Address [address] [place] [address] Care Team Providers Care Chef Broiler Or Fry Name Role Phone Tin Cutler MD Primary Care Provider [phone] Encounter Details Date Type Department Care Team ([facility] Contact Info) Description 10/09/2024 Orders Only [facility] [address] [place] [address] Solange Brothers SOCORRO (acute kidney injury) ([facility]) (Primary Dx); Vitamin D insufficiency [...] Description 12/12/2024 2:20 PM EDT Office Visit [facility] Nephrology, Bone & Mineral Metabolism [address], [address] [place] [address] Eagle Egan MD [address] [place] [phone] Scheduled Orders Name Type Priority Associated Diagnoses Orde r Schedule Renal Function Panel, Plasma Lab Routine SOCORRO (acute kidney injury) ([facility]) Expected: 10/09/2024 (Approximate), Expires: 04/10/2026 CBC W/O Differential Lab Routine SOCORRO (acute kidney injury) ([facility]) Expected: 10/09/2024 (Approximate), Expires: 04/10/2026 Vitamin D 25 Hydroxy Lab Routine SOCORRO (acute kidney injury) ([facility]) Vitamin D insufficiency Expected: 10/09/2024 (Approximate), Expires: 04/10/2026 PTH Intact Total Lab Routine SOCORRO (acute kidney injury) ([facility]) Vitamin D insufficiency Expected: 10/09/2024 (Approximate), Expires: 04/10/2026 Urinalysis with reflex microscopic (Culture NOT Included) Lab Routine SOCORRO (acute kidney injury) ([facility]) Expected: 10/09/2024 (Approximate), Expires: 04/10/2026 Protein, Random, Urine with Creatinine Lab Routine SOCORRO (acute kidney injury) ([facility]) Expected: 10/09/2024 (Approximate), Expires: 04/10/2026 Creatinine, Random, Urine Lab Routine SOCORRO (acute kidney injury) ([facility]) Expected: 10/09/2024 (Approximate), Expires: 04/10/2026 documented as of this encounter Visit Diagnoses Diagnosis SOCORRO (acute kidney injury) ([facility])- Primary Vitamin D insufficiency documented in this encounter Care Teams Chef Broiler Or Fry Relationship Specialty Start Date End Date iTn Cutler MD [address] [place] [address] PCP - General 08/29/20 11/12/24 documented as of this encounter
--- OUTSIDE RECORDS SUMMARY | 2024-12-08 09:48 | XMS_ITS | Encounter Summary ---
Author Organization [facility] Address [address] [place] [address] Care Team Providers Care Circulation Representative Name Role Phone Tin Cutler MD Primary Care Provider [phone] Fred Solomon DO Primary Care Provider [phone] Encounter Details Date Type Department Care Team (Late Contact Info) Description 06/15/2024 Orders Only External Location [address] [place] [address] Jess Krishna, TANK TRUCK MECHANIC [address] [facility] [address] [place] [address] Social History Tobacco Use Types Packs/Day Years [...] 12/12/2024 2:20 PM EDT Office Visit [facility] Nephrology, Bone & Mineral Metabolism [address] [facility], [address] [place] [address] Eagle Egan MD [address] [place] [address] documented as of this encounter Procedures Procedure Name Priority Date/Time Associated Diagnosis Comments US OUTSIDE IMAGES 06/15/2024 11:08 AM EST documented in this encounter Results * US OUTSIDE IMAGES (06/15/2024 11:08 AM EST) Anatomical Region Laterality Modality Ultrasound 06/15/2024 11:0 8 AM EST us Jess Krishna TANK TRUCK MECHANIC IMG US PROCEDURES Jie l Result documented in this encounter Visit Diagnoses Not on filedocumented in this encounter Care Teams Circulation Representative Relationship Specialty Start Date End Date Tin Cutler MD [address] [place], [place] [address] PCP - General 08/29/20 11/12/24 Fred Solomon DO [address] [place] [address] PCP - General 11/13/24 documented as of this encounter
--- OUTSIDE RECORDS SUMMARY | 2024-12-08 09:48 | XMS_ITS | Encounter Summary ---
Author Organization [facility] Address [address] [place] [address] Care Team Providers Care Well Drill Operator Cable Tool Name Role Phone Fred Solomon Primary Care Provider [phone] Encounter Details Date Type Department Care Team ([facility] Contact Info) Description 11/30/2024 Telephone [facility] Nephrology, Bone & Mineral Metabolism [address] [facility], [address] [place] [address] Eagle Egan MD [address] [place] [address] Social History Tobacco Use Types Packs/Day Years [...] encounter Miscellaneous Notes * Telephone Encounter - Eden Rockwell - 11/30/2024 4:23 PM EDT Paperwork/Documentation Request Patient Name: Dilia Chester Type: Lab orders Due Date: 11/30/2024 [facility] contact number: [phone] Optimal time of day to reach caller: ANYTIME Additional comments/information from caller: None Note: Please do not reply to this message. Follow-up communication and further actions as a result of this message need to be communicated with the patient directly, if the patient is not active onMyChart. If the patient is active on MyChart, they will receive notification of the communication/outcome via MyChart. documented in this encounter Plan of Treatment Upcoming Encounters Date Type Department Care Team (Late st Contact Info) Description 12/12/2024 2:20 PM EDT Office Visit [facility] Nephrology, Bone & Mineral Metabolism [address], [address] [place] [address] Eagle Egan MD [address] [place] [address] documented as of this encounter Visit Diagnoses Not on filedocumented in this encounter Additional Health Concerns Assessment Noted Time A fall risk assessment has been complete d for the patient 10/24/2024 4:02 PM EDT A Body Mass Index follow-up plan has been documented for the patient 10/25/2024 10:08 AM EDT documented as of this encounter Care Teams Well Drill Operator Cable Tool Relationship Specialty Start Date End Date Fred Solomon DO [address] [place] [address] PCP - General 11/13/24 documented as of this encounter
[2024-12-08 09:52] LABS: Microscopic, Urine URINE MICROSCOPIC (MICROSCOPIC)
[2024-12-08 10:12] LABS: Hematocrit 29.3 % (37.0-47.0); Hemoglobin 9.9 g/dL (12.2-16.2); Mean Corpuscular HGB Conc 33.8 g/dL (31.8-35.4); Mean Corpuscular Hemoglobin 30.9 pg (27.0-31.2); Mean Corpuscular Volume 91.6 fl (81-99); Nucleated Red Blood Cells % 0 %; Platelet Count 300 K/mm3 (142-424); Red Blood Count 3.20 M/mm3 (4.20-5.40); Red Cell Distribution Width-SD 40.4 fL; White Blood Count 9.2 K/mm3 (4.8-10.8)
[2024-12-08 10:15] LABS: Bilirubin,Urine Negative (Negative); Color,Urine YELLOW (Yellow); Glucose,Urine (UA) 3+ (Negative); Ketones,Urine Negative (Negative); Leukocyte Esterase,Urine Negative (Negative); PH,Urine 6.0 (5.0-8.5); Protein,Urine TRACE (Negative); Specific Gravity, Urine 1.010 (1.005-1.030); Urobilinogen,Urine 0.2 EU/dl (0.2)
[2024-12-08 10:35] LABS: RBC,Urine TNTC #/hpf (0-3)
[2024-12-08 10:45] LABS: Chloride 99 mmol/L (98-107)
[2024-12-08 10:46] LABS: Albumin Level 4.5 g/dl (3.5-5.0); Potassium 4.6 mmoL/L (3.5-5.1); Sodium 139 mmol/L (136-145)
[2024-12-08 10:49] LABS: Blood Urea Nitrogen 26 mg/dl (7-17); Calcium 9.3 mg/dl (8.4-10.2); Creatinine,Serum 1.60 mg/dl (0.52-1.04); Estimated Glomerular Filt Rate 33 ml/min (>60); GFR (African American) 39 ML/MIN (>60); Glucose 201 mg/dl (74-100); Phosphorous 4.6 mg/dl (2.5-4.5)
[2024-12-08 14:08] LABS: Anion Gap 16.6 mEq/L (5-15); Carbon Dioxide 28 mmol/L (22.0-30.0)
--- OUTSIDE RECORDS SUMMARY | 2024-12-22 20:00 | XMS_ITS | Clinical Summary ---
Author Organization Unknown Care Team Providers Care Pulmonary Specialist Name Role Phone MARIELY PROCEDURES ANALYST, JENNIE Unavailable Unavailable EARL PT, OMAR Unavailable Unavailable DEACON GOPHERMAN, JOHN Unavailable Unavailable SERGO OT, BERYL Unavailable Unavailable Payers Payer Name Policy Type Policy Number Effective Date Expira tion Date [facility].HHAHRLY.MA2.C.NOAUTH [id number] Problems Condition Name Condition Details Condition Category [...] 10-15 00:00: 00 ATHSCL HEART DISEASE OF [place] CORONARY ARTERY W/O ANG PCTRS Active 10-15 00:00: 00 EMPHYSEMA, UNSPECIFIED Active 10-15 00:00: 00 RESTLESS LEGS SYNDROME Active 10-15 00:00: 00 HYPOMAGNESEM IA Active 10-15 00:00: 00 MIXED HYPERLIPIDEM IA Active 10-15 00:00: 00 CARDIAC MURMUR, UNSPECIFIED Active 10-15 00:00: 00 DETENTION (CURRENT) USE OF ORAL HYPOGLYCEMIC DRUGS Active 10-15 00:00: 00 JAVA WEB ENGINEER (CURRENT) USE OF INHALED STEROIDS Active 10-15 [...] 10-20 00:00: 00 10-25 00:00 :00 No [id number] Per instruc tions Per instructio ns (route: oral) Med Classific ation: Cardiovas cular Therapy Agents doxycycline hyclate 100 mg capsule 10-20 00:00: 00 10-25 00:00 :00 No [id number] Per instruc tions Per instructio ns (route: oral) Med Classific ation: Anti-Infe ctive Agents duloxetine 30 mg capsule,del ayed release 10-20 00:00: 00 10-25 00:00 :00 No [id number] Per instruc tions Per instructio ns (route: oral) Med Classific ation: Central Nervous System Agents gabapentin 100 mg capsule 10-20 00:00: 00 10-25 00:00 :00 No [id number] Per instruc tions Per instructio ns (route: oral) Med Classific ation: Central Nervous System Agents ondansetron 4 mg disintegrat ing tablet 10-20 00:00: 00 10-25 00:00 :00 No [id number] Per instruc tions Per instructio ns (route: oral) Med Classific ation: Gastroint estinal Therapy Agents pantoprazol e 40 mg tablet,jef yed release 10-20 00:00: 00 10-25 00:00 :00 No [id number] Per instruc tions Per instructio ns (route: oral) Med Classific ation: Gastroint estinal Therapy Agents erythromyci n 5 mg/gram (0.5 %) eye ointment 630 00:00: 00 10-25 00:00 :00 No [id number] Per instruc tions Per instructio ns (route: ophthalmic (eye)) Med Classific ation: Ophthalmi c Agents omeprazole 40 mg capsule,del ayed release 6-26 00:00: 00 Yes [id number] GERD 1 capsule DAILY 1 capsule DAILY (route: oral) Med Classific ation: Gastroint estinal Therapy Agents Anoro Ellipta 62.5 mcg-25 mcg/actuati on powder for inhalation 6-19 00:00: 00 Yes [id number] BREATHING 1 inhalat ion DAILY 1 inhalation DAILY (route: inhalation ) Med Classific ation: Respirato ry Therapy Agents albuterol sulfate HFA 90 mcg/actuati on aerosol inhaler -16 00:00: 00 Yes [id number] BREATHING 2 puff EVERY 6 HOURS 2 puff EVERY 6 HOURS (route: inhalation ) Med Classific ation: Respirato ry Therapy Agents losartan 100 mg tablet 14 00:00: 00 10-25 00:00 :00 No [id number] Per instruc tions ONCE DAILY Per instructio ns ONCE DAILY (route: oral) Med Classific ation: Cardiovas cular Therapy Agents Trulicity 1.5 mg/0.5 mL subcutaneou s pen injector 6-12 00:00: 00 10-25 00:00 :00 No [id number] Unavailable Per instruc tions 1 SYRINGE SUBCUTANEO USLY ONCE A WEEK Per instructio ns 1 SYRINGE SUBCUTANEO USLY ONCE A WEEK (route: subcutaneo us) Med Classific ation: Endocrine carvedilol 25 mg tablet 6-11 00:00: 00 10-25 00:00 :00 No [id number] Unavailable Per instruc tions TWICE DAILY Per instructio ns TWICE DAILY (route: oral) Med Classific ation: Cardiovas cular Therapy Agents Aspirin Childrens 81 mg chewable tablet 7-10 00:00: 00 Yes [id number] HEART 1 tablet DAILY 1 tablet DAILY (route: oral) Med Classific ation: Hematolog ical Agents atorvastati n 20 mg tablet 10-25 00:00: 00 Yes [id number] CHOLESTEROL 1 tablet BEDTIME 1 tablet BEDTIME (route: oral) Med Classific ation: Cardiovas cular Therapy Agents clopidogrel 75 mg tablet 10-25 00:00: 00 Yes [id number] HEART 1 tablet DAILY 1 tablet DAILY (route: oral) Med Classific ation: Hematolog ical Agents duloxetine 60 mg capsule,del ayed release 10-25 00:00: 00 Yes [id number] MOOD 1 capsule DAILY 1 capsule DAILY (route: oral) Med Classific ation: Central Nervous System Agents gabapentin 600 mg tablet 10-25 00:00: 00 Yes [id number] NERVE PAIN 1 tablet 3 TIMES DAILY 1 tablet 3 TIMES DAILY (route: oral) Med Classific ation: Central Nervous System Agents magnesium 400 mg (as magnesium oxide) tablet 10-25 00:00: 00 Yes [id number] SUPPLEMENTA L 1 tablet DAILY 1 tablet DAILY (route: oral) Med Classific ation: Electroly te Balance-N utritiona l Products ropinirole 1 mg tablet 10-25 00:00: 00 Yes [id number] TREMOR 1 tablet BEDTIME 1 tablet BEDTIME (route: oral) Med Classific ation: Central Nervous System Agents Jardiance 10 mg tablet 10-25 00:00: 00 Yes [id number] T2DM 1 tablet DAILY 1 tablet DAILY (route: oral) Med Classific ation: Endocrine Vital Signs Vital Name Observation Time Observation Value Commen ts Temperature 2024-12-04 13:05:00.000 97.6 [degF] Temperature 2024-11-13 12:38:00.000 98 [degF] Temperature 2024-11-08 15:17:00.000 98.6 [degF] Temperature 2024-10-25 16:09:00.000 98.2 [degF] BMI (%) 2024-10-25 16:08:53.000 24 kg/m2 Height 2024-10-25 16:08:48.000 63 [in_us] Pulse 2024-12-04 13:05:00.000 71 /min Pulse 2024-11-13 12:38:00.000 77 /min Pulse 2024-11-08 15:17:00.000 70 /min Pulse 2024-10-25 16:09:00.000 78 /min O2 Saturation (%) 2024-12-04 13:06:00.000 95 % O2 Saturation (%) 2024-11-13 12:39:00.000 98 % O2 Saturation (%) 2024-10-25 16:09:00.000 97 % Respirations 2024-12-04 13:05:00.000 18 /min Respirations 2024-11-13 12:38:00.000 18 /min Respirations 2024-11-08 15:17:00.000 18 /min Respirations 2024-10-25 16:09:00.000 18 /min Weight (lbs) 2024-10-25 16:08:53.000 140 [lb_av] Systolic Blood Pressure 2024-12-04 13:05:00.000 116 mm [Hg] Systolic Blood Pressure 2024-11-13 12:38:00.000 117 mm [Hg] Systolic Blood Pressure 2024-11-08 15:17:00.000 122 mm [Hg] Systolic Blood Pressure 2024-10-25 16:09:00.000 128 mm [Hg] Diastolic Blood Pressure 2024-12-04 13:05:00.000 [...] TO EVALUATE, OBSERVE / ASSESS, AND MONITOR, GOPHERMAN TO OBSERVE AND MONITOR, PROVIDE SKILLED THERAPEUTIC INTERVENTION, ACTIVITY, EDUCATION, AND TRAINING TO ADDRESS; [code = AGENCY MAY PERFORM A RESUMPTION OF CARE VISIT FOLLOWING ANY HOSPITAL ADMISSION. PT TO EVALUATE, OBSERVE / ASSESS, AND MONITOR, GOPHERMAN TO OBSERVE AND MONITOR, PROVIDE SKILLED THERAPEUTIC INTERVENTION, ACTIVITY, EDUCATION, AND TRAINING TO ADDRESS;] Future Scheduled Test THERAPEUTI C EXERCISES AND ESTABLISHING A HOME EXERCISE PROGRAM (PT/GOPHERMAN) [code = THERAPEUTIC EXERCISES AND ESTABLISHING A HOME EXERCISE PROGRAM (PT/GOPHERMAN)] Future Scheduled Test NEUROMUSCU LAR RE-EDUCATION / BALANCE / POSTURAL CONTROL (PT) [code = NEUROMUSCULAR RE-EDUCATION / BALANCE / POSTURAL CONTROL (PT)] Future Scheduled Test SIT TO/FRO M STAND TRANSFERS (PT/GOPHERMAN) [code = SIT TO/FROM STAND TRANSFERS (PT/GOPHERMAN)] Future Scheduled Test PT/GOPHERMAN TO PROVIDE GAIT TRAINING FOR IMPROVED MOBILITY AND /OR TO NORMALIZE GAIT PATTERN [code = PT/GOPHERMAN TO PROVIDE GAIT TRAINING FOR IMPROVED MOBILITY AND /OR TO NORMALIZE GAIT PATTERN] Future Scheduled Test PT/GOPHERMAN TO IDENTIFY FALL RISK FACTORS; EDUCATE THE PATIENT/CAREGIVER ON WAYS TO REDUCE FALL RISK FACTORS AND ESTABLISH HOME EXERCISE PROGRAM TO MINIMIZE FALL RISK. MAY TEACH THE PATIENT FLOOR RECOVERY WHEN CLINICALLY APPROPRIATE [code = PT/GOPHERMAN TO IDENTIFY FALL RISK FACTORS; EDUCATE THE PATIENT/CAREGIVER ON WAYS TO REDUCE FALL RISK FACTORS AND ESTABLISH HOME EXERCISE PROGRAM TO MINIMIZE FALL RISK. MAY TEACH THE PATIENT FLOOR RECOVERY WHEN CLINICALLY APPROPRIATE] Future Scheduled Test PT / GOPHERMAN T O INSTRUCT PATIENT/CAREGIVER ON RISK FOR HOSPITALIZATION/EMERGENCY ROOM VISITS, TEACH SIGNS AND SYMPTOMS THAT PUT PATIENT AT RISK, WHEN TO NOTIFY NURSE/PHYSICIAN OF COMPLICATIONS/DECLINE, AND WHEN TO CALL 911. [code = PT / GOPHERMAN TO INSTRUCT PATIENT/CAREGIVER ON RISK FOR HOSPITALIZATION/EMERGENCY ROOM VISITS, TEACH SIGNS AND SYMPTOMS THAT PUT PATIENT AT RISK, WHEN TO NOTIFY NURSE/PHYSICIAN OF COMPLICATIONS/DECLINE, AND WHEN TO CALL 911.] Future Scheduled Test PT / GOPHERMAN T O MONITOR AND EDUCATE ON OXYGEN SATURATION DURING ADLS/IADLS, NOTIFY PHYSICIAN AND/OR THE RN CLINICAL DIRECTOR OF HEAD START FOR PHYSICIAN NOTIFICATION AND IF O2 SATS BELOW PHYSICIAN ORDERED PARAMETERS AFTER 10 MIN OF REST [code = PT / GOPHERMAN TO MONITOR AND EDUCATE ON OXYGEN SATURATION DURING ADLS/IADLS, NOTIFY PHYSICIAN AND/OR THE RN CLINICAL DIRECTOR OF HEAD START FOR PHYSICIAN NOTIFICATION AND IF O2 SATS BELOW PHYSICIAN ORDERED PARAMETERS AFTER 10 MIN OF REST] Goal Patient Goal - I NDEPENDENCE WITH FUNCTIONAL [...] PHYSICIAN ORDERED PARAMETERS THROUGHOUT EPISODE OF CARE. Encounters Start Date/Time End Date/Time Encounter Type Admission Type Attending [facility] Facility Care Department Encounter ID Discharge Date Discharge Status Discharge Condition Discharge Reason Percent Goals Met 2024-10-25 00:00:00 2024-12-23 00:00:00 Outpatient NEW ADMISSION [facility]LLI[facility] [id number] .00
--- OUTSIDE RECORDS SUMMARY | 2024-12-22 20:00 | XMS_ITS | Clinical Summary ---
Author Organization Unknown Care Team Providers Care Heavy Equipment Diesel Mechanic Name Role Phone MARIELY INSTRUMENT INSPECTOR, JENNIE Unavailable Unavailable EARL PT, OMAR Unavailable Unavailable DEACON SECURITY ALARM TECHNICIAN, JOHN Unavailable Unavailable SERGO OT, BERYL Unavailable Unavailable Payers Payer Name Policy Type Policy Number Effective Date Expira tion Date [facility].HHAHRLY.MA2.C.NOAUTH [id number] Problems Condition Name Condition Details Condition Category [...] 10-15 00:00: 00 ATHSCL HEART DISEASE OF [place] CORONARY ARTERY W/O ANG PCTRS Active 10-15 00:00: 00 EMPHYSEMA, UNSPECIFIED Active 10-15 00:00: 00 RESTLESS LEGS SYNDROME Active 10-15 00:00: 00 HYPOMAGNESEM IA Active 10-15 00:00: 00 MIXED HYPERLIPIDEM IA Active 10-15 00:00: 00 CARDIAC MURMUR, UNSPECIFIED Active 10-15 00:00: 00 ALF (CURRENT) USE OF ORAL HYPOGLYCEMIC DRUGS Active 10-15 00:00: 00 WINK CUTTER OPERATOR (CURRENT) USE OF INHALED STEROIDS Active 10-15 [...] 10-20 00:00: 00 10-25 00:00 :00 No [id number] Per instruc tions Per instructio ns (route: oral) Med Classific ation: Cardiovas cular Therapy Agents doxycycline hyclate 100 mg capsule 10-20 00:00: 00 10-25 00:00 :00 No [id number] Per instruc tions Per instructio ns (route: oral) Med Classific ation: Anti-Infe ctive Agents duloxetine 30 mg capsule,del ayed release 10-20 00:00: 00 10-25 00:00 :00 No [id number] Per instruc tions Per instructio ns (route: oral) Med Classific ation: Central Nervous System Agents gabapentin 100 mg capsule 10-20 00:00: 00 10-25 00:00 :00 No [id number] Per instruc tions Per instructio ns (route: oral) Med Classific ation: Central Nervous System Agents ondansetron 4 mg disintegrat ing tablet 10-20 00:00: 00 10-25 00:00 :00 No [id number] Per instruc tions Per instructio ns (route: oral) Med Classific ation: Gastroint estinal Therapy Agents pantoprazol e 40 mg tablet,jef yed release 10-20 00:00: 00 10-25 00:00 :00 No [id number] Per instruc tions Per instructio ns (route: oral) Med Classific ation: Gastroint estinal Therapy Agents erythromyci n 5 mg/gram (0.5 %) eye ointment 630 00:00: 00 10-25 00:00 :00 No [id number] Per instruc tions Per instructio ns (route: ophthalmic (eye)) Med Classific ation: Ophthalmi c Agents omeprazole 40 mg capsule,del ayed release 6-26 00:00: 00 Yes [id number] GERD 1 capsule DAILY 1 capsule DAILY (route: oral) Med Classific ation: Gastroint estinal Therapy Agents Anoro Ellipta 62.5 mcg-25 mcg/actuati on powder for inhalation 6-19 00:00: 00 Yes [id number] BREATHING 1 inhalat ion DAILY 1 inhalation DAILY (route: inhalation ) Med Classific ation: Respirato ry Therapy Agents albuterol sulfate HFA 90 mcg/actuati on aerosol inhaler -16 00:00: 00 Yes [id number] BREATHING 2 puff EVERY 6 HOURS 2 puff EVERY 6 HOURS (route: inhalation ) Med Classific ation: Respirato ry Therapy Agents losartan 100 mg tablet 14 00:00: 00 10-25 00:00 :00 No [id number] Per instruc tions ONCE DAILY Per instructio ns ONCE DAILY (route: oral) Med Classific ation: Cardiovas cular Therapy Agents Trulicity 1.5 mg/0.5 mL subcutaneou s pen injector 6-12 00:00: 00 10-25 00:00 :00 No [id number] Unavailable Per instruc tions 1 SYRINGE SUBCUTANEO USLY ONCE A WEEK Per instructio ns 1 SYRINGE SUBCUTANEO USLY ONCE A WEEK (route: subcutaneo us) Med Classific ation: Endocrine carvedilol 25 mg tablet 6-11 00:00: 00 10-25 00:00 :00 No [id number] Unavailable Per instruc tions TWICE DAILY Per instructio ns TWICE DAILY (route: oral) Med Classific ation: Cardiovas cular Therapy Agents Aspirin Childrens 81 mg chewable tablet 7-10 00:00: 00 Yes [id number] HEART 1 tablet DAILY 1 tablet DAILY (route: oral) Med Classific ation: Hematolog ical Agents atorvastati n 20 mg tablet 10-25 00:00: 00 Yes [id number] CHOLESTEROL 1 tablet BEDTIME 1 tablet BEDTIME (route: oral) Med Classific ation: Cardiovas cular Therapy Agents clopidogrel 75 mg tablet 10-25 00:00: 00 Yes [id number] HEART 1 tablet DAILY 1 tablet DAILY (route: oral) Med Classific ation: Hematolog ical Agents duloxetine 60 mg capsule,del ayed release 10-25 00:00: 00 Yes [id number] MOOD 1 capsule DAILY 1 capsule DAILY (route: oral) Med Classific ation: Central Nervous System Agents gabapentin 600 mg tablet 10-25 00:00: 00 Yes [id number] NERVE PAIN 1 tablet 3 TIMES DAILY 1 tablet 3 TIMES DAILY (route: oral) Med Classific ation: Central Nervous System Agents magnesium 400 mg (as magnesium oxide) tablet 10-25 00:00: 00 Yes [id number] SUPPLEMENTA L 1 tablet DAILY 1 tablet DAILY (route: oral) Med Classific ation: Electroly te Balance-N utritiona l Products ropinirole 1 mg tablet 10-25 00:00: 00 Yes [id number] TREMOR 1 tablet BEDTIME 1 tablet BEDTIME (route: oral) Med Classific ation: Central Nervous System Agents Jardiance 10 mg tablet 10-25 00:00: 00 Yes [id number] T2DM 1 tablet DAILY 1 tablet DAILY [...] TO EVALUATE, OBSERVE / ASSESS, AND MONITOR, SECURITY ALARM TECHNICIAN TO OBSERVE AND MONITOR, PROVIDE SKILLED THERAPEUTIC INTERVENTION, ACTIVITY, EDUCATION, AND TRAINING TO ADDRESS; [code = AGENCY MAY PERFORM A RESUMPTION OF CARE VISIT FOLLOWING ANY HOSPITAL ADMISSION. PT TO EVALUATE, OBSERVE / ASSESS, AND MONITOR, SECURITY ALARM TECHNICIAN TO OBSERVE AND MONITOR, PROVIDE SKILLED THERAPEUTIC INTERVENTION, ACTIVITY, EDUCATION, AND TRAINING TO ADDRESS;] Future Scheduled Test THERAPEUTI C EXERCISES AND ESTABLISHING A HOME EXERCISE PROGRAM (PT/SECURITY ALARM TECHNICIAN) [code = THERAPEUTIC EXERCISES AND ESTABLISHING A HOME EXERCISE PROGRAM (PT/SECURITY ALARM TECHNICIAN)] Future Scheduled Test NEUROMUSCU LAR RE-EDUCATION / BALANCE / POSTURAL CONTROL (PT) [code = NEUROMUSCULAR RE-EDUCATION / BALANCE / POSTURAL CONTROL (PT)] Future Scheduled Test SIT TO/FRO M STAND TRANSFERS (PT/SECURITY ALARM TECHNICIAN) [code = SIT TO/FROM STAND TRANSFERS (PT/SECURITY ALARM TECHNICIAN)] Future Scheduled Test PT/SECURITY ALARM TECHNICIAN TO PROVIDE GAIT TRAINING FOR IMPROVED MOBILITY AND /OR TO NORMALIZE GAIT PATTERN [code = PT/SECURITY ALARM TECHNICIAN TO PROVIDE GAIT TRAINING FOR IMPROVED MOBILITY AND /OR TO NORMALIZE GAIT PATTERN] Future Scheduled Test PT/SECURITY ALARM TECHNICIAN TO IDENTIFY FALL RISK FACTORS; EDUCATE THE PATIENT/CAREGIVER ON WAYS TO REDUCE FALL RISK FACTORS AND ESTABLISH HOME EXERCISE PROGRAM TO MINIMIZE FALL RISK. MAY TEACH THE PATIENT FLOOR RECOVERY WHEN CLINICALLY APPROPRIATE [code = PT/SECURITY ALARM TECHNICIAN TO IDENTIFY FALL RISK FACTORS; EDUCATE THE PATIENT/CAREGIVER ON WAYS TO REDUCE FALL RISK FACTORS AND ESTABLISH HOME EXERCISE PROGRAM TO MINIMIZE FALL RISK. MAY TEACH THE PATIENT FLOOR RECOVERY WHEN CLINICALLY APPROPRIATE] Future Scheduled Test PT / SECURITY ALARM TECHNICIAN T O INSTRUCT PATIENT/CAREGIVER ON RISK FOR HOSPITALIZATION/EMERGENCY ROOM VISITS, TEACH SIGNS AND SYMPTOMS THAT PUT PATIENT AT RISK, WHEN TO NOTIFY NURSE/PHYSICIAN OF COMPLICATIONS/DECLINE, AND WHEN TO CALL 911. [code = PT / SECURITY ALARM TECHNICIAN TO INSTRUCT PATIENT/CAREGIVER ON RISK FOR HOSPITALIZATION/EMERGENCY ROOM VISITS, TEACH SIGNS AND SYMPTOMS THAT PUT PATIENT AT RISK, WHEN TO NOTIFY NURSE/PHYSICIAN OF COMPLICATIONS/DECLINE, AND WHEN TO CALL 911.] Future Scheduled Test PT / SECURITY ALARM TECHNICIAN T O MONITOR AND EDUCATE ON OXYGEN SATURATION DURING ADLS/IADLS, NOTIFY PHYSICIAN AND/OR THE RN CLINICAL WIND TURBINE MECHANIC FOR PHYSICIAN NOTIFICATION AND IF O2 SATS BELOW PHYSICIAN ORDERED PARAMETERS AFTER 10 MIN OF REST [code = PT / SECURITY ALARM TECHNICIAN TO MONITOR AND EDUCATE ON OXYGEN SATURATION DURING ADLS/IADLS, NOTIFY PHYSICIAN AND/OR THE RN CLINICAL WIND TURBINE MECHANIC FOR PHYSICIAN NOTIFICATION AND IF O2 SATS [...] End Date/Time Encounter Type Admission Type Attending [facility] Care Department Encounter ID Discharge Date Discharge Status Discharge Condition Discharge Reason Percent Goals Met 2024-10-25 00:00:00 2024-12-23 00:00:00 Outpatient NEW ADMISSION [facility] [id number]
== END 2024-12-08 23:59 | disposition home or self-care (01) ==
PROVIDERS: PCP Internal Medicine; Visit Provider Student in an Organized Health Care Education/Training Program
DX: N17.9 Acute kidney failure, unspecified (principal)
CPT/HCPCS: 36415; 80069; 81001; 82043; 82570; 84156; 85027

== ENCOUNTER 2024-12-31 10:05 | Day surgery (SDC) | payer MEDICARE, SELFPAY ==
--- NOTE | 2024-12-26 13:17 | EXP.HP ---
History of Present Illness *Admission Date: 12/31/24 *Reason for visit:: Anemia/Hemoccult positive stool *History of present illness: Mrs. Chester is a 64-year-old female who is here for diagnostic EGD and colonoscopy secondary to iron deficiency anemia and Hemoccult positive stool. The patient's iron saturation in October 2024 was 13.386%. The patient did have an aborted colonoscopy in 2022 (Ronnie Kelsey MD). She does have a strong family history of colon cancer (father) and has had moderate weight loss. She also has gassiness, bloating and early satiety. She has noticed some bright red blood on the tissue which she attributes to hemorrhoids. The examination is deemed medically necessary for diagnostic EGD and colonoscopy. The patient has been seen, interviewed and examined prior to the procedure by both myself and the anesthesia provider. [facility] Disclaimer: The information contained in this section may have been updated after the patient was seen, as this information can be updated by other users. Medical History Coronary artery sclerosis Cataract (lens) fragments in eye following cataract surgery, bilateral Bradycardia Acute respiratory failure with hypoxia Pneumonia History of smoking 30 or more pack years Pulmonary emphysema Viral syndrome Right carotid bruit Fatigue Exposure to COVID-19 virus Chest pain Hypomagnesemia Subcutaneous nodule of back Angina pectoris Abnormal stress test Dyspnea Dizziness Left carotid bruit Palpitations Diastolic dysfunction Aortic insufficiency Abdominal pain Celiac artery stenosis Surgical History History of carpal tunnel release right History of appendectomy History of cataract surgery bilateral History of right-sided carotid endarterectomy H/O carotid endarterectomy H/O: hysterectomy Hx of cholecystectomy History of colonoscopy Family History Other Family history of cancer Family history of diabetes mellitus type II Social History Smoking Status: Never smoker second hand exposure: No alcohol intake: never substance use type: denies use current occupational status: disabled Travel in the last 8 weeks?: None household members: spouse and family housing: house current occupational exposures/hazards: No caffeine: Yes Other Medical History Have you received the Flu Vaccine for this season: No Have you received the Pneumonia Vaccine: No Review of Systems Review of Systems Review of systems (narrative): Negative *Cardiovascular Comments: Negative *Gastrointestinal Comments: Negative *Genitourinary Comments: Negative *Musculoskeletal Comments: Negative *Neurologic Comments: Negative Meds Home Medications and Allergies Home Medications ?Medication ?Instructions ?Recorded ?Confirmed ?Type albuterol sulfate 90 mcg/actuation 2 puff inhalation Q6HP PRN 07/02/21 12/05/24 History aerosol inhaler Shortness Of Breath Or Wheezing atorvastatin 20 mg tablet 20 mg PO DAILY 09/18/24 12/05/24 History magnesium oxide 400 mg PO DAILY 09/18/24 12/05/24 History ropinirole 1 mg tablet 1 mg PO HS 09/18/24 12/05/24 History umeclidinium 62.5 mcg-vilanterol 1 inh inhalation DAILY 10/02/24 12/05/24 History 25 mcg/actuation powdr for inhalation (Anoro Ellipta) ropinirole 1 mg tablet 0.5 mg PO DAILY 10/16/24 12/05/24 History carvedilol 25 mg tablet (Coreg) 12.5 mg (1/2 x 25 mg) PO BID #60 10/20/24 12/05/24 Rx tabs ondansetron 4 mg disintegrating 4 mg PO Q8H PRN nausea and 10/20/24 12/05/24 Rx tablet vomiting #20 tabs cetirizine 10 mg tablet (Zyrtec) 10 mg PO DAILY PRN 11/06/24 12/05/24 History multivitamin with minerals-folic tab PO 11/06/24 12/05/24 History acid 12 mcg chewable tablet (Centrum Adults) polyethylene glycol 3350 17 17 g PO DAILY 11/07/24 12/05/24 History gram/dose oral powder (Miralax) empagliflozin 10 mg-linagliptin 5 1 tab PO DAILY #30 tabs 11/09/24 12/05/24 Rx mg tablet (Glyxambi) amlodipine 10 mg tablet 10 mg PO DAILY #90 tabs 11/20/24 12/05/24 Rx duloxetine 30 mg capsule,delayed 30 mg PO DAILY 30 days #90 caps 11/20/24 12/05/24 Rx release gabapentin 100 mg capsule 100 mg PO TID #90 caps 11/20/24 12/05/24 Rx pantoprazole 40 mg tablet,delayed 40 mg PO HSP PRN Acid Reflux #90 11/20/24 12/05/24 Rx release tabs metoprolol succinate 25 mg 12.5 mg (1/2 x 25 mg) PO DAILY #30 12/05/24 12/05/24 Rx tablet,extended release 24 hr tabs sodium sul 1.479 gram-potas ch See Rx Instructions PO PER PKG DIR 12/19/24 Rx 0.188 gram-magnes sul 0.225 gram colonscopy #24 tabs tablet (Sutab) New Prescriptions to Start Prescriptions: Allergies Allergy/AdvReac Type Severity Reaction Status Date / Time menthol (From LidoPatch) Allergy Unknown SKIN RASH Verified 12/05/24 13:45 lidocaine AdvReac Unknown SKIN RASH Verified 12/05/24 13:45 Exam *Routine HEENT Exam Head: Present normocephalic Eye: Present EOMI and PERRL ENT: Present mucous membranes moist *Routine Neck Exam Neck: Present supple *Routine Respiratory Exam Respiratory: Present CTA bilaterally *Routine Cardiovascular Exam Cardiovascular: Present RRR *Routine Abdominal Exam Abdominal: Present soft and normoactive bowel sounds; Absent tenderness *Routine Rectal Exam Rectal:: deferred *Routine Genitalia Exam Genitalia:: deferred *Routine Extremities Exam Extremities: Absent cyanosis, clubbing or edema *Routine Skin Exam Skin: Present warm; Absent rash *Routine Neurological Exam Neurological: Present alert and oriented X3 Assessment and Plan *Assessment and plan (1) Iron deficiency anemia: Status: Acute Category: Medical Code(s): D50.9 - Iron deficiency anemia, unspecified (2) Positive occult stool blood test: Status: Acute Category: Medical Code(s): R19.5 - Other fecal abnormalities (3) Bloating: Status: Acute Category: Medical Code(s): R14.0 - Abdominal distension (gaseous) (4) Bright red blood per rectum: Status: Acute Category: Medical Code(s): K62.5 - Hemorrhage of anus and rectum Plan A/P: 1. Iron deficiency anemia and Hemoccult positive stool is the preprocedural diagnosis. The patient has had bright red blood per rectum and bloating. The patient will be anesthetized/sedated using MAC sedation. The patient has been seen and examined. Cardiac and lung assessment prior to the examination is stable. Proceed with planned diagnostic EGD and colonoscopy.
[2024-12-26 15:43] VITALS: BMI 26.5
[2024-12-31 10:44] VITALS: BP 142/53; PULSE 73; RESP 16; TEMP 36.3; O2SAT 96
[2024-12-31] MEDS: LACTATED RINGERS 1000ML 1,000 ML 50 ML IV (10:55)
[2024-12-31 19:36] LABS: POC Glucose,Bedside 280 gm/dL (70-110)
== END 2024-12-31 11:45 | disposition home or self-care (01) ==
LOC: OUTP 10:06
PROVIDERS: PCP Internal Medicine; Visit Provider Internal Medicine Gastroenterology
PROC: 0DJ08ZZ Inspection of Upper Intestinal Tract, Via Natural or Artificial Opening Endoscopic (ICD-10-PCS; CPT 45378; principal; 2024-12-31 12:00)
DX: B02.8 Zoster with other complications (principal); T14.8XXA Other injury of unspecified body region, initial encounter
CPT/HCPCS: 82962; J7120

== ENCOUNTER 2025-01-16 07:41 | Outpatient (CLI) | payer MEDICARE, SELFPAY ==
--- OUTSIDE RECORDS SUMMARY | 2024-12-12 14:20 | XMS_ITS | Encounter Summary ---
Author Organization [facility] Address [address] [place] [address] Care Team Providers Care Pens And Pencils Dipper Name Role Phone Juanito Fred Pauly HARRELL Primary Care Provider [phone] Reason for Referral * Consultation (Routine) - Authorized Specialty Diagnoses / Procedures Referred By Naresh croft Referred To Contact Diagnoses Acute kidney injury Eagle Egan MD [address] [place] [address] Phone: tel: fax: Referral ID Status Reason Start Date Expiration Date V isits Requested Visits Authorized [id number] Authorized 12/12/2024 06/13/2026 1 1 Reason for Visit * Reason Comments Follow-up * Consultation (Routine) - Closed Specialty Diagnoses / Procedures Referred By Naresh croft Referred To Contact Diagnoses Acute kidney injury Eagle Egan MD [address] [place] [address] Phone: tel: fax: Referral ID Status Reason Start Date Expiration Date Visits Re quested Visits Authorized [id number] Closed 10/24/2024 04/25/2026 1 1 Encounter Details Date Type Department Care Team (Latest Contact Info) Description 12/12/2024 2:20 PM EDT Office Visit [facility] Nephrology, Bone & Mineral Metabolism [address] [facility], [address] [place] [address] Eagle Egan MD [address] [place] [address] Acute kidney injury (CMS/HCC) (Primary Dx); Hypertension, [...] Sign Reading Time Taken Comments Blood Pressure 137/68 12/12/2024 2:11 PM EDT Pulse 76 12/12/2024 2:11 PM EDT Temperature 36.5 C (97.7 F) 12/12/2024 2:11 PM EDT Respiratory Rate 19 12/12/2024 2:11 PM EDT Oxygen Saturation 92% 12/12/2024 2:1 1 PM EDT Room air Inhaled Oxygen Concentration - - Weight 67.9 kg (149 lb 11.1 oz) 12/12/2024 2:11 PM EDT Height 160 cm (5' 3 ) 12/12/2024 2:11 PM EDT per pt report Body Mass Index 26.52 12/12/2024 2:11 PM EDT documented in this encounter Miscellaneous Notes * Progress Notes - Zohreh Ortega MD - 12/12/2024 2:20 PM EDT Images from the original note were not included. Nephrology Clinic Follow Up Patient: Dilia Chester Visit Date: (Not on file) Subjective: Chief complaint: I am feeling good. I am here to follow for my CKD HPI: Dilia Chester is a 64 y.o. female with PMH of hypertension, dyslipidemia, coronary artery disease, COPD, type 2 diabetes, GERD, chronic mesenteric ischemia, renal artery stenosis, carotid artery stenosis status post right carotid endarterectomy 2019 who presented to the clinic today for evaluation of elevated creatinine her baseline creatinine from April 2024 is 0.99 with EGFR of 64. Recently hospitalized early October 2024 at [facility] for severe dehydration and SOCORRO withcreatinine of 2.4. She presented to the clinic today for follow-up for her CKD She is sitting comfortably in her wheelchair. She reported that she is feeling much better. No abdominal pain. Able to drink plenty of liquids. She has very good urine output and we will awake only 1time at nighttime to urinate. No other urinary symptoms. Energy is coming back. She is happy about the way she is progressing as well as her . ROS: 14-point review negative except for positives detailed in the HPI. Objective: Visit Vitals BP 137/68 (BP Location: Left arm, Patient Position: Sitting, BP Cuff Size: Adult) Pulse 76 Temp 36.5 ??C (97.7 ??F) (Oral) Resp 19 Ht 1.6 m (5' 3 ) Comment: per pt report Wt 67.9 kg (149 lb 11.1 oz) SpO2 92% Comment: Room air BMI 26.52 kg/m?? Smoking Status Former BSA 1.74 m?? Temp: [36.5 ??C (97.7 ??F)] 36.5 ??C (97.7 ??F) Heart Rate: [76] 76 Resp: [19] 19 BP: (137)/(68) 137/68 @INTAKEOUTPUTBRIEF@ Exam: General: Comfortable, not in distress, conversant and cooperative Head: Atraumatic and normocephalic Eyes: No Icterus. No pallor Ears: Ears appear intact with no abnormalities noted Throat: No oral lesions, no thrush Neck: Supple, trachea midline Lungs: Clear to auscultation bilaterally, equal air entry, no wheezing or crackles Heart: Normal S1 and S2, no murmur, no gallop, No JVD, no lower extremity swelling Abdomen: Soft, no tenderness, no organomegaly, normal bowel sounds, no organomegaly Extremities: pulses equal bilaterally Skin: No bleeding, bruising or rash, normal skin turgor and elasticity Neurologic: Cranial nerves appear intact with no evidence of facial asymmetry, normal motor and sensory functions in all 4 extremities Psych: Alert and oriented x 3, normal mood History & Problem Lists: Problem List[1] Past Medical History[2] Problem List[3] Surgical History[4] Family History[5] Social History Socioeconomic History Marital status: Spouse name: Not on file Number of children: Not on file Years of education: Not on file Highest education level: Not on file Occupational History Not on file Tobacco Use Smoking status: Former Average packs/day: 1 pack/day for 22.0 years (22.0 ttl pk-yrs) Types: Cigarettes Start date: 1997 Smokeless tobacco: Never Substance and Sexual Activity Alcohol use: No Drug use: Never Sexual activity: Defer Partners: Male Other Topics Concern Not on file Social History Narrative Disabled Marital Status: Number of children Social Drivers of Health Financial Resource Strain: Not on file Food Insecurity: Not on file Transportation Needs: Not on file Physical Activity: Not on file Stress: Not on file Social Connections: Not on file Intimate Partner Violence: Not on file Housing Stability: Not on file Allergies[6] Medications: Home Medications: Current Medications[7] Current Medications: Current Scheduled Medications[8] Current Continuous Medications[9] Lab & Imaging: Renal Panel: Lab Results Component Value Date NA 132 (L) 09/14/2018 K 4.2 09/14/2018 CL 96 (L) 09/14/2018 CO2 22 09/14/2018 BUN 8 09/14/2018 CA 9.2 09/14/2018 PHOS 2.4 (L) 09/14/2018 MBD: Lab Results Component Value Date PHOS 2.4 (L) 09/14/2018 Urine: No results found for: CREATU , URINEPRO , UTPCR , ALBCREA No results found for: URBC , WBCU , PROTUR No results found for: URINEPRO , CREATU , UTPCR , ALBCREA CBC: Lab Results Component Value Date WBC 15.49 (H) 09/13/2018 RBC 3.35 (L) 09/13/2018 HGB 10.5 (L) 09/13/2018 HCT 30.9 (L) 09/13/2018 PLT 245 09/13/2018 MCV 92 09/13/2018 MCH 31.3 09/13/2018 MCHC 34.0 09/13/2018 RDW 11.9 09/13/2018 Iron studies: No results found for: TIBC Imaging (past 24h): I personally visualized and interpreted all of the imaging studies below and I agree with formal interpretation. Assessment & Plan: SUMMARY: Dilia Chester is a 64 y.o. female with PMH of hypertension, dyslipidemia, coronary artery disease, COPD, type 2 diabetes, GERD, chronic mesenteric ischemia, renal artery stenosis, carotid artery stenosis status post right carotid endarterectomy 2018 who presented to the clinic today for evaluation of elevated creatinine her baseline creatinine from April 2024 is 0.99 with EGFR of 64. Recently hospitalized early October 2024 at [facility] for severe dehydration and SOCORRO withcreatinine of 2.4. She presented to the clinic today for follow-up for her CKD CKD stage 3A/B Recent SOCORRO with ATN (10/20/2024) Baseline creatinine is 0.99 with (eGFR of 64) from April 2024. She has CKD stage 2 likely relatedto her hypertension and type 2 diabetes. She suffered SOCORRO 2/2 severe volume depletion secondary to poor oral intake from 10/20/2024 with creatinine of 2.4 and eGFR 20 Most recent creatinine from 11/14/2024 is 1.5 with EGFR of 35 which might be her new baseline afterher SOCORRO No proteinuria. U PCR < 0.3 Electrolytes, acid/base: close to normal levels from Lab 11/14/2024 Type 2 diabetes No recent A1c in chart Metformin discontinue it because of her SOCORRO Currently on Glyxambi??(Empagliflozin + Linagliptin) Hypertension Well controlled. Today 137/68 Currently on amlodipine 10 mg daily, Coreg 12.5 mg twice daily, Toprol-XL 25 mg daily Dyslipidemia in CKD On Lipitor 20 mg CKD-MBD (Chronic kidney disease-Mineral Bone Disease) Vitamin-D3: 31, On cholecalciferol: none iPTH: 108 Ca & Ph: WNL Coronary artery disease COPD, type 2 diabetes GERD chronic mesenteric ischemi Renal artery stenosis Carotid artery stenosis status post right carotid endarterectomy 2018 RECOMMENDATIONS & PLAN: No change to medications Avoid nephrotixins: NSAIDs, Contrast, ...etc Adjust all medications per eGFR Counselling provided regarding strict glycemic control and BP control. Ongoing routine follow up with PCP and our clinic to be able to slow the progression of CKD Patient will follow with Dr. Egan with the Nephrology Clinic at [facility] in [place] in 3 months with repeat lab Zohreh Ortega MD Nephrology and Critical Care Fellow - PGY4 Pager [phone] or [employer] secure chat [1] Patient Active Problem List Diagnosis Acute kidney injury (CMS/HCC) Hypertension Iron deficiency anemia Other hyperlipidemia [2] Past Medical History: Diagnosis Date Abnormal colonoscopy Back pain Carotid artery stenosis CHF (congestive heart failure) (CMS/HCC) Diabetes (CMS/HCC) Esophageal reflux H/O heart artery stent Hyperlipidemia Hypertension Peripheral vascular disease (CMS/HCC) Peripheral vascular obstructive disease (CMS/HCC) [3] Patient Active Problem List Diagnosis Acute kidney injury (CMS/HCC) Hypertension Iron deficiency anemia Other hyperlipidemia [4] Past Surgical History: Procedure Laterality Date APPENDECTOMY N/A Appendectomy from [facility] CARDIAC CATHETERIZATION CAROTID ENDARTERECTOMY N/A Endarterectomy Carotid Artery from [facility] CARPAL TUNNEL RELEASE N/A Neuroplasty Median Nerve At Carpal Tunnel from [facility] CHOLECYSTECTOMY N/A Cholecystectomy from [facility] CORONARY ANGIOPLASTY Left Coronary Angiography With Concomitant Left Heart Catheterization from [facility] HYSTEROTOMY IMPLANT SURG STENT Left LEFT LEG IR PAIN PUMP IMPLANT/ REPLACEMENT AND IT CATH OTHER SURGICAL HISTORY N/A Supracervical Hysterectomy With Unilateral Removal Of Tube And Ovary from [facility] STOMACH SURGERY [address] IN STOMACH TONSILLECTOMY N/A Tonsillectomy from [facility] [5] Family History Problem Relation Name Age of Onset Coronary artery disease Mother Diabetes Mother Conversions - Other Mother Oat cell carcinoma Conversions - Other Father CAD (coronary artery disease), [place] coronary artery Stroke Father Diabetes Father Colon cancer Father Hodgkin's lymphoma Sister Heart attack Sister Conversions - Other Brother CAD (coronary artery disease), [place] coronary artery Diabetes Brother Thyroid cancer Brother No Known Problems Mother's Sister No Known Problems Mother's Brother No Known Problems Father's Sister No Known Problems Father's Brother No Known Problems Maternal Grandmother No Known Problems Maternal Grandfather No Known Problems Paternal Grandmother No Known Problems Paternal Grandfather No Known Problems Other [6] Allergies Allergen Reactions Lidocaine Rash and Unknown - Patient states they do not know rxn details Menthol Unknown - Patient states they do not know rxn details [7] Current Outpatient Medications: albuterol 108 (90 Base) MCG/ACT inhaler, Inhale 2 puffs 4 times a day., Disp: , Rfl: amLODIPine (Norvasc) 10 MG tablet, Take 1 tablet by mouth daily., Disp: , Rfl: atorvastatin (Lipitor) 20 MG tablet, Take 1 tablet by mouth daily., Disp: , Rfl: carvedilol (Coreg) 12.5 MG tablet, Take by mouth 2 times a day with meals., Disp: , Rfl: cetirizine (ZyrTEC) 10 MG tablet, Take 1 tablet by mouth daily., Disp: , Rfl: DULoxetine (Cymbalta) [address] capsule, Take 1 capsule by mouth daily. Do not crush or chew., Disp:, Rfl: gabapentin (Neurontin) 100 MG capsule, Take 1 capsule by mouth 3 times a day., Disp: , Rfl: Glyxambi 10-5 MG, Take 1 tablet by mouth daily., Disp: , Rfl: magnesium oxide (Mag-Ox) 400 (240 Mg) MG tablet, Take 1 tablet by mouth daily., Disp: , Rfl: metoprolol succinate XL (Toprol-XL) 25 MG 24 hr tablet, Take 0.5 tablets by mouth daily., Disp: , Rfl: Multiple Vitamins-Minerals (multivitamin with iron-minerals) liquid, Take by mouth daily., Disp: , Rfl: ondansetron (Zofran) 4 MG tablet, Take 1 tablet by mouth every 8 hours as needed for nausea or vomiting., Disp: , Rfl: pantoprazole (Protonix) 40 MG EC tablet, Take 1 tablet by mouth daily before breakfast. Do not crush, chew, or split., Disp: , Rfl: rOPINIRole (Requip) 1 MG tablet, Take 1 tablet by mouth 2 times a day., Disp: , Rfl: Umeclidinium-Vilanterol (Anoro Ellipta) 62.5-25 MCG/ACT aerosol powder aerosol powder, Inhale 1 Inhalation daily., Disp: , Rfl: empagliflozin (Jardiance) 10 MG, Take by mouth daily. (Patient not taking: Reported on 12/12/2024), Disp: , Rfl: [8] [9] Cosigned by Eagle Egan MD at 12/18/2024 10:47 AM EDT Associated attestation - Eagle Egan MD - 12/18/2024 10:47 AM EDT I saw and evaluated the patient with the resident/fellow. I discussed the case with the resident/fellow and agree with the findings and plan as documented. documented in this encounter Plan of Treatment Upcoming Encounters Date Type Department Care Team (Late st Contact Info) Description 04/05/2025 1:00 PM EST Office Visit [facility] [address] [place] [address] Eagle Egan MD [address] [place] [address] Scheduled Orders Name Type Priority Associated Diagnoses Orde r Schedule Albumin-creatinine ratio, urine, random Lab Routine Acute kidney injury ([facility]) Expected: 03/14/2025, Expires: 06/15/2026 Phosphorus, Plasma Lab Routine Acute kidney injury ([facility]) Expected: 03/14/2025, Expires: 06/15/2026 Renal Function Panel, Plasma Lab Routine Acute kidney injury ([facility]) Expected: 03/14/2025, Expires: 06/15/2026 PTH Intact Total Lab Routine Acute kidney injury ([facility]) Expected: 03/14/2025, Expires: 06/15/2026 Uric Acid, Plasma Lab Routine Acute kidney injury ([facility]) Expected: 03/14/2025, Expires: 06/15/2026 Vitamin D 25 Hydroxy Lab Routine Acute kidney injury ([facility]) Expected: 03/14/2025, Expires: 06/15/2026 Urinalysis with reflex microscopic (Culture NOT Included) Lab Routine Acute kidney injury ([facility]) Expected: 03/14/2025 (Approximate), Expires: 06/15/2026 Scheduled Referrals Name Type Priority Associated Diagnoses Order Schedule Follow Up Nephrology Outpatient Referral Routine Acute kidney injury ([facility]) Expected: 03/14/2025 (Approximate), Expires: 01/12/2026 documented as of this encounter Visit Diagnoses Diagnosis Acute kidney injury- Primary Hypertension, unspecified type Iron deficiency anemia, unspecified iron deficiency anemia type Other hyperlipidemia documented in this encounter Additional Health Concerns Assessment Noted Time A fall risk assessment has been complete d for the patient 12/12/2024 2:20 PM EDT A Body Mass Index follow-up plan has been documented for the patient 12/12/2024 7:16 PM EDT documented as of this encounter Care Teams Pens And Pencils Dipper Relationship Specialty Start Date End Date Fred Solomon DO [address] [place] [address] PCP - General 11/13/24 documented as of this encounter
--- OUTSIDE RECORDS SUMMARY | 2024-12-19 20:00 | XMS_ITS | Clinical Summary ---
Author Organization Unknown Care Team Providers Care Metal Dealer Name Role Phone MARIELY TANK DRIVER, JENNIE Unavailable Unavailable EARL PT, OMAR Unavailable Unavailable DEACON HAND INSERTER OPERATOR, JOHN Unavailable Unavailable SERGO OT, BERYL Unavailable Unavailable Payers Payer Name Policy Type Policy Number Effective Date Expira tion Date [facility].HHAHRLY.MA2.C.NOAUTH [id number] Problems Condition Name Condition Details Condition Category Status Onset Date Resolution Date Last Treatment Date Treating Clinician Comments ANEMIA, UNSPECIFIED Active 10-22 00:00: 00 URINARY TRACT INFECTION, SITE NOT SPECIFIED Active 10-15 00:00: 00 Encounter for sepsis aftercare Active 10-25 00:00: 00 METABOLIC ENCEPHALOPAT HY Active 10-15 00:00: 00 TYPE 2 DIABETES MELLITUS W DIABETIC CHRONIC KIDNEY DISEASE Active 10-15 00:00: 00 CHRONIC KIDNEY DISEASE, UNSPECIFIED Active 10-15 00:00: 00 TYPE 2 DIABETES W DIABETIC PERIPHERAL ANGIOPATH W/O GANGRENE Active 10-15 00:00: 00 ATHSCL HEART DISEASE OF [place] CORONARY ARTERY W/O ANG PCTRS Active 10-15 00:00: 00 EMPHYSEMA, UNSPECIFIED Active 10-15 00:00: 00 RESTLESS LEGS SYNDROME Active 10-15 00:00: 00 HYPOMAGNESEM IA Active 10-15 00:00: 00 MIXED HYPERLIPIDEM IA Active 10-15 00:00: 00 CARDIAC MURMUR, UNSPECIFIED Active 10-15 00:00: 00 CARE HOME (CURRENT) USE OF ORAL HYPOGLYCEMIC DRUGS Active 10-15 00:00: 00 GLUE MIXER (CURRENT) USE OF INHALED STEROIDS Active 10-15 00:00: 00 PERSONAL HISTORY OF PNEUMONIA (RECURRENT) Active 10-15 00:00: 00 PERSONAL HISTORY OF NICOTINE DEPENDENCE Active 10-15 00:00: 00 HISTORY OF FALLING Active 10-15 00:00: 00 Allergies, Adverse Reactions, Alerts Allergy Name Allergy Type Status Severity Reaction(s) Onset Date Inactive Date Treating Clinician Comments MENTHOL Propensity to adverse reactions Active 10-26 09:22: 30 LIDOCAINE Propensity to adverse reactions Active 10-26 09:22: 35 Medications Ordered Medication Name Filled Medication Name Start Date Stop Date Current Medication? Ordering Clinician Indication Dosage Frequency Signature (SIG) Comments Components amlodipine 10 mg tablet 10-20 00:00: 00 10-25 00:00 :00 No [id number] Per instruc tions Per instructio ns (route: oral) Med Classific ation: Cardiovas cular Therapy Agents doxycycline hyclate 100 mg capsule 10-20 00:00: 00 10-25 00:00 :00 No [id number] Per instruc tions Per instructio ns (route: oral) Med Classific ation: Anti-Infe ctive Agents duloxetine 30 mg capsule,del ayed release 10-20 00:00: 00 10-25 00:00 :00 No [id number] Per instruc tions Per instructio ns (route: oral) Med Classific ation: Central Nervous System Agents gabapentin 100 mg capsule 10-20 00:00: 00 10-25 00:00 :00 No [id number] Per instruc tions Per instructio ns (route: oral) Med Classific ation: Central Nervous System Agents ondansetron 4 mg disintegrat ing tablet 10-20 00:00: 00 10-25 00:00 :00 No [id number] Per instruc tions Per instructio ns (route: oral) Med Classific ation: Gastroint estinal Therapy Agents pantoprazol e 40 mg tablet,jef yed release 10-20 00:00: 00 10-25 00:00 :00 No [id number] Per instruc tions Per instructio ns (route: oral) Med Classific ation: Gastroint estinal Therapy Agents erythromyci n 5 mg/gram (0.5 %) eye ointment 630 00:00: 00 10-25 00:00 :00 No [id number] Per instruc tions Per instructio ns (route: ophthalmic (eye)) Med Classific ation: Ophthalmi c Agents omeprazole 40 mg capsule,del ayed release 6-26 00:00: 00 Yes [id number] GERD 1 capsule DAILY 1 capsule DAILY (route: oral) Med Classific ation: Gastroint estinal Therapy Agents Anoro Ellipta 62.5 mcg-25 mcg/actuati on powder for inhalation 6-19 00:00: 00 Yes [id number] BREATHING 1 inhalat ion DAILY 1 inhalation DAILY (route: inhalation ) Med Classific ation: Respirato ry Therapy Agents albuterol sulfate HFA 90 mcg/actuati on aerosol inhaler -16 00:00: 00 Yes [id number] BREATHING 2 puff EVERY 6 HOURS 2 puff EVERY 6 HOURS (route: inhalation ) Med Classific ation: Respirato ry Therapy Agents losartan 100 mg tablet 14 00:00: 00 10-25 00:00 :00 No [id number] Per instruc tions ONCE DAILY Per instructio ns ONCE DAILY (route: oral) Med Classific ation: Cardiovas cular Therapy Agents Trulicity 1.5 mg/0.5 mL subcutaneou s pen injector 6-12 00:00: 00 10-25 00:00 :00 No [id number] Unavailable Per instruc tions 1 SYRINGE SUBCUTANEO USLY ONCE A WEEK Per instructio ns 1 SYRINGE SUBCUTANEO USLY ONCE A WEEK (route: subcutaneo us) Med Classific ation: Endocrine carvedilol 25 mg tablet 6-11 00:00: 00 10-25 00:00 :00 No [id number] Unavailable Per instruc tions TWICE DAILY Per instructio ns TWICE DAILY (route: oral) Med Classific ation: Cardiovas cular Therapy Agents Aspirin Childrens 81 mg chewable tablet 7-10 00:00: 00 Yes [id number] HEART 1 tablet DAILY 1 tablet DAILY (route: oral) Med Classific ation: Hematolog ical Agents atorvastati n 20 mg tablet 10-25 00:00: 00 Yes [id number] CHOLESTEROL 1 tablet BEDTIME 1 tablet BEDTIME (route: oral) Med Classific ation: Cardiovas cular Therapy Agents clopidogrel 75 mg tablet 10-25 00:00: 00 Yes [id number] HEART 1 tablet DAILY 1 tablet DAILY (route: oral) Med Classific ation: Hematolog ical Agents duloxetine 60 mg capsule,del ayed release 10-25 00:00: 00 Yes [id number] MOOD 1 capsule DAILY 1 capsule DAILY (route: oral) Med Classific ation: Central Nervous System Agents gabapentin 600 mg tablet 10-25 00:00: 00 Yes [id number] NERVE PAIN 1 tablet 3 TIMES DAILY 1 tablet 3 TIMES DAILY (route: oral) Med Classific ation: Central Nervous System Agents magnesium 400 mg (as magnesium oxide) tablet 10-25 00:00: 00 Yes [id number] SUPPLEMENTA L 1 tablet DAILY 1 tablet DAILY (route: oral) Med Classific ation: Electroly te Balance-N utritiona l Products ropinirole 1 mg tablet 10-25 00:00: 00 Yes [id number] TREMOR 1 tablet BEDTIME 1 tablet BEDTIME (route: oral) Med Classific ation: Central Nervous System Agents Jardiance 10 mg tablet 10-25 00:00: 00 Yes [id number] T2DM 1 tablet DAILY 1 tablet DAILY (route: oral) Med Classific ation: Endocrine Vital Signs Vital Name Observation Time Observation Value Commen ts Temperature 2024-12-20 14:34:00.000 98.6 [degF] Temperature 2024-12-04 13:05:00.000 97.6 [degF] Temperature 2024-11-13 12:38:00.000 98 [degF] Temperature 2024-11-08 15:17:00.000 98.6 [degF] Temperature 2024-10-25 16:09:00.000 98.2 [degF] BMI (%) 2024-10-25 16:08:53.000 24 kg/m2 Height 2024-10-25 16:08:48.000 63 [in_us] Pulse 2024-12-20 14:34:00.000 75 /min Pulse 2024-12-04 13:05:00.000 71 /min Pulse 2024-11-13 12:38:00.000 77 /min Pulse 2024-11-08 15:17:00.000 70 /min Pulse 2024-10-25 16:09:00.000 78 /min O2 Saturation (%) 2024-12-04 13:06:00.000 95 % O2 Saturation (%) 2024-11-13 12:39:00.000 98 % O2 Saturation (%) 2024-10-25 16:09:00.000 97 % Respirations 2024-12-20 14:34:00.000 16 /min Respirations 2024-12-04 13:05:00.000 18 /min Respirations 2024-11-13 12:38:00.000 18 /min Respirations 2024-11-08 15:17:00.000 18 /min Respirations 2024-10-25 16:09:00.000 18 /min Weight (lbs) 2024-10-25 16:08:53.000 140 [lb_av] Systolic Blood Pressure 2024-12-20 14:34:00.000 108 mm [Hg] Systolic Blood Pressure 2024-12-04 13:05:00.000 116 mm [Hg] Systolic Blood Pressure 2024-11-13 12:38:00.000 117 mm [Hg] Systolic Blood Pressure 2024-11-08 15:17:00.000 122 mm [Hg] Systolic Blood Pressure 2024-10-25 16:09:00.000 128 mm [Hg] Diastolic Blood Pressure 2024-12-20 14:34:00.000 68 mm [Hg] Diastolic Blood Pressure 2024-12-04 13:05:00.000 62 mm [Hg] Diastolic Blood Pressure 2024-11-13 12:38:00.000 62 mm [Hg] Diastolic Blood Pressure 2024-11-08 15:17:00.000 66 mm [Hg] Diastolic Blood Pressure 2024-10-25 16:09:00.000 90 mm [Hg] Plan of Treatment Planned Activity Planned Date Details Comments Future Scheduled Test AGENCY MAY PERFORM A RESUMPTION OF CARE VISIT FOLLOWING ANY HOSPITAL ADMISSION. PT TO EVALUATE, OBSERVE / ASSESS, AND MONITOR, HAND INSERTER OPERATOR TO OBSERVE AND MONITOR, PROVIDE SKILLED THERAPEUTIC INTERVENTION, ACTIVITY, EDUCATION, AND TRAINING TO ADDRESS; [code = AGENCY MAY PERFORM A RESUMPTION OF CARE VISIT FOLLOWING ANY HOSPITAL ADMISSION. PT TO EVALUATE, OBSERVE / ASSESS, AND MONITOR, HAND INSERTER OPERATOR TO OBSERVE AND MONITOR, PROVIDE SKILLED THERAPEUTIC INTERVENTION, ACTIVITY, EDUCATION, AND TRAINING TO ADDRESS;] Future Scheduled Test THERAPEUTI C EXERCISES AND ESTABLISHING A HOME EXERCISE PROGRAM (PT/HAND INSERTER OPERATOR) [code = THERAPEUTIC EXERCISES AND ESTABLISHING A HOME EXERCISE PROGRAM (PT/HAND INSERTER OPERATOR)] Future Scheduled Test NEUROMUSCU LAR RE-EDUCATION / BALANCE / POSTURAL CONTROL (PT) [code = NEUROMUSCULAR RE-EDUCATION / BALANCE / POSTURAL CONTROL (PT)] Future Scheduled Test SIT TO/FRO M STAND TRANSFERS (PT/HAND INSERTER OPERATOR) [code = SIT TO/FROM STAND TRANSFERS (PT/HAND INSERTER OPERATOR)] Future Scheduled Test PT/HAND INSERTER OPERATOR TO PROVIDE GAIT TRAINING FOR IMPROVED MOBILITY AND /OR TO NORMALIZE GAIT PATTERN [code = PT/HAND INSERTER OPERATOR TO PROVIDE GAIT TRAINING FOR IMPROVED MOBILITY AND /OR TO NORMALIZE GAIT PATTERN] Future Scheduled Test PT/HAND INSERTER OPERATOR TO IDENTIFY FALL RISK FACTORS; EDUCATE THE PATIENT/CAREGIVER ON WAYS TO REDUCE FALL RISK FACTORS AND ESTABLISH HOME EXERCISE PROGRAM TO MINIMIZE FALL RISK. MAY TEACH THE PATIENT FLOOR RECOVERY WHEN CLINICALLY APPROPRIATE [code = PT/HAND INSERTER OPERATOR TO IDENTIFY FALL RISK FACTORS; EDUCATE THE PATIENT/CAREGIVER ON WAYS TO REDUCE FALL RISK FACTORS AND ESTABLISH HOME EXERCISE PROGRAM TO MINIMIZE FALL RISK. MAY TEACH THE PATIENT FLOOR RECOVERY WHEN CLINICALLY APPROPRIATE] Future Scheduled Test PT / HAND INSERTER OPERATOR T O INSTRUCT PATIENT/CAREGIVER ON RISK FOR HOSPITALIZATION/EMERGENCY ROOM VISITS, TEACH SIGNS AND SYMPTOMS THAT PUT PATIENT AT RISK, WHEN TO NOTIFY NURSE/PHYSICIAN OF COMPLICATIONS/DECLINE, AND WHEN TO CALL 911. [code = PT / HAND INSERTER OPERATOR TO INSTRUCT PATIENT/CAREGIVER ON RISK FOR HOSPITALIZATION/EMERGENCY ROOM VISITS, TEACH SIGNS AND SYMPTOMS THAT PUT PATIENT AT RISK, WHEN TO NOTIFY NURSE/PHYSICIAN OF COMPLICATIONS/DECLINE, AND WHEN TO CALL 911.] Future Scheduled Test PT / HAND INSERTER OPERATOR T O MONITOR AND EDUCATE ON OXYGEN SATURATION DURING ADLS/IADLS, NOTIFY PHYSICIAN AND/OR THE RN CLINICAL INSTRUCTOR [employer] FOR PHYSICIAN NOTIFICATION AND IF O2 SATS BELOW PHYSICIAN ORDERED PARAMETERS AFTER 10 MIN OF REST [code = PT / HAND INSERTER OPERATOR TO MONITOR AND EDUCATE ON OXYGEN SATURATION DURING ADLS/IADLS, NOTIFY PHYSICIAN AND/OR THE RN CLINICAL INSTRUCTOR [employer] FOR PHYSICIAN NOTIFICATION AND IF O2 SATS BELOW PHYSICIAN ORDERED PARAMETERS AFTER 10 MIN OF REST] Goal 2024-12-20 Patient Goal - I NDEPENDENCE WITH FUNCTIONAL ACTIVITIES Goal Provider Goal - Goal Provider Goal - PT STG: PATIENT WILL DEMONSTRATE IMPROVED FUNCTIONAL STRENGTH EVIDENCED BY FIVE TIMES SIT TO STAND TEST (CUT SCORE >12 SECONDS INDICATES AN INCREASED FALL RISK) IMPROVING FROM 34 SECONDS TO LESS THAN OR EQUAL TO 28 SECONDS WITHIN 4 WEEKS IN ORDER TO DECREASE FALL RISK PT LTG: PATIENT WILL DEMONSTRATE IMPROVED FUNCTIONAL STRENGTH EVIDENCED BY FIVE TIMES SIT TO STAND TEST (CUT SCORE >12 SECONDS INDICATES AN INCREASED FALL RISK) IMPROVING FROM 34 SECONDS TO LESS THAN OR EQUAL TO 12 SECONDS WITHIN 8 WEEKS IN ORDER TO DECREASE FALL RISK PT LTG: PATIENT WILL DEMONSTRATE INDEPENDENCE AND COMPLIANCE WITH HEP WITHIN 4 WEEKS Goal Provider Goal - PT LTG: PATIENT WILL DEMONSTRATE REDUCED FALL RISK EVIDENCED BY TUG TEST (CUT SCORE >11 SECONDS INDICATES INCREASED FALL RISK) IMPROVING FROM UNABLE TO LESS THAN OR EQUAL TO 11 SECONDS WITHIN 8 WEEKS Goal Provider Goal - PT LTG: PATIENT WILL DEMONSTRATE IMPROVED ABILITY TO PERFORM SIT TO/FROM STAND TRANSFERS TO REDUCE THE RISK OF SKIN BREAKDOWN AND REDUCE FALL RISK FROM CGA TO IND WITHIN 8 WEEKS Goal Provider Goal - PT STG: PATIENT WILL DEMONSTRATE IMPROVED 6 MINUTE WALK TEST AMBULATION FROM 50 FT MOD TO 150 FT CGA WITH APPROPRIATE AD WITHIN 4 WEEKS. PT LTG: PATIENT WILL DEMONSTRATE IMPROVED 6 MINUTE WALK TEST AMBULATION FROM 50 FT MOD TO 300 FT IND WITH APPROPRIATE AD WITHIN 8 WEEKS. Goal Provider Goal - PT LTG: PATIENT/CAREGIVER WILL DEMONSTRATE ADHERENCE TO FALL REDUCTION SELF-MANAGEMENT AND REDUCING FALL RISK FACTORS TO MINIMIZE FALL RISK BY END OF EPISODE. Goal Provider Goal - PT GOAL: PATIENT/CAREGIVER WILL VERBALIZE UNDERSTANDING OF SIGNS AND SYMPTOMS THAT PUT THE PATIENT AT RISK FOR HOSPITALIZATION /EMERGENCY ROOM VISITS, WHEN TO NOTIFY NURSE/PHYSICIAN OF COMPLICATIONS/DECLINE AND WHEN TO CALL 911. Goal Provider Goal - PT LTG: PATIENT WILL MAINTAIN OXYGEN SATURATION WITHIN PHYSICIAN ORDERED PARAMETERS THROUGHOUT EPISODE OF CARE. Reason for Visit INDEPENDENT WITH USE OF ASSISTIVE DEVICE Encounters Start Date/Time End Date/Time Encounter Type Admission Type Attending Clinicians Care Facility Care Department Encounter ID Discharge Date Discharge Status Discharge Condition Discharge Reason Percent Goals Met 2024-10-25 00:00:00 2024-12-20 00:00:00 Outpatient NEW ADMISSION [facility] [id number] 2024-12-20 00:00:00 DISCHARGE TO HOME OR SELF CARE INDEPENDEN T WITH USE OF ASSISTIVE DEVICE HH - NON COMPLIANT WITH PLAN OF TREATMENT 100.00
--- OUTSIDE RECORDS SUMMARY | 2025-01-16 07:43 | XMS_ITS | Encounter Summary ---
Author Organization [facility] Address [address] [place] [address] Care Team Providers Care Combination Worker Name Role Phone Tin Cutler MD Primary Care Provider [phone] Fred Solomon DO Primary Care Provider [phone] Encounter Details Date Type Department Care Team (Late st Contact Info) Description 06/15/2024 Orders Only External Location [address] [place] [address] Jess Krishna, STRUCTURAL WORKER [address] [facility] [address] [address] Social History Tobacco Use Types Packs/Day Years [...] Description 04/05/2025 1:00 PM EST Office Visit [facility] [address] [place] [phone] Eagle Egan MD [address] [place] [address] documented as of this encounter Procedures Procedure Name Priority Date/Time Associated Diagnosis Comments US OUTSIDE IMAGES 06/15/2024 11:08 AM EST documented in this encounter Results * US OUTSIDE IMAGES (06/15/2024 11:08 AM EST) Anatomical Region Laterality Modality Ultrasound 06/15/2024 11:0 8 AM EST us Jess Krishna STRUCTURAL WORKER IMG US PROCEDURES Jie l Result documented in this encounter Visit Diagnoses Not on filedocumented in this encounter Care Teams Combination Worker Relationship Specialty Start Date End Date Tin Cutler MD [address] [place], [place] [address] PCP - General 08/29/20 11/12/24 Fred Solomon DO [address] [place] [address] PCP - General 11/13/24 documented as of this encounter
--- OUTSIDE RECORDS SUMMARY | 2025-01-16 07:43 | XMS_ITS | Encounter Summary ---
Author Organization [facility] Address [address] [place] [address] Care Team Providers Care Manager Economic Name Role Phone Fred Solomon Primary Care Provider [phone] Encounter Details Date Type Department Care Team ([facility] st Contact Info) Description 12/21/2024 Telephone [facility] Nephrology, Bone & Mineral Metabolism [address] [facility], [address] [place] [address] Zohreh Ortega MD [facility] [place] [address] Social History Tobacco Use Types Packs/Day Years [...] encounter Miscellaneous Notes * Telephone Encounter - Zohreh Ortega MD - 12/21/2024 1:14 PM EDT Patient requested update about her blood workup. I called her and updated her that her creatinine is stable at 1.5. GFR 33 Additionally, she reported that she has severe yeast infection and unable to reach her PCP to get prescription for Diflucan. I sent her Diflucan 150 mg 1 tablet x1 to her [facility] pharmacy documented in this encounter Plan of Treatment Upcoming Encounters Date Type Department Care Team (Late st Contact Info) Description 04/05/2025 1:00 PM EST Office Visit [facility] [address] [place] [phone] Eagle Egan MD [address] [place] [phone] documented as of this encounter Visit Diagnoses Not on filedocumented in this encounter Additional Health Concerns Assessment Noted Time A fall risk assessment has been complete d for the patient 12/12/2024 2:20 PM EDT A Body Mass Index follow-up plan has been documented for the patient 12/12/2024 7:16 PM EDT documented as of this encounter Care Teams Manager Economic Relationship Specialty Start Date End Date Frde Solomon DO [address] [place] [address] PCP - General 11/13/24 documented as of this encounter
--- OUTSIDE RECORDS SUMMARY | 2025-01-16 07:43 | XMS_ITS | Clinical Summary ---
Author Organization [facility] Address [address] [place] [address] Care Team Providers Care Trial Attorney Name Role Phone JuanitoFred Pauly HARRELL Primary Care Provider [phone] Allergies Active Allergy Reactions Criticality Noted Date [...] Take 1 tablet by mouth daily. Active Glyxambi 10-5 MG Take 1 tablet by mouth daily. Active metoprolol succinate XL (Toprol-XL) 25 MG 24 hr tablet Take 0.5 tablets by mouth daily. Active fluconazole (Diflucan) 150 MG tabletIndicatio ns:Yeast infection Take 1 tablet by mouth 1 time for 1 dose. 1 tablet 12/22/19 Active Problems Problem Noted Date Diagnosed Date Acute kidney injury 10/25/2024 Hypertension 10/25/2024 Iron deficiency anemia 10/25/2024 Other hyperlipidemia 10/25/2024 Encounters Date Type Department Care Team Description 12/21/2024 Telephone [facility] Nephrology, Bone & Mineral Metabolism [address], [address] [place] [phone] Zohreh Ortega MD 12/21/2024 Orders Only [facility] Nephrology, Bone & Mineral Metabolism [address], [address] [place] [phone] Zohreh Ortega MD Yeast infection (Primary Dx) 12/21/2024 Telephone [facility] Nephrology, Bone & Mineral Metabolism [address], [address] [place] [phone] [facility] Clinical Concern/Question 12/12/2024 2:20 PM EDT Office Visit [facility] Nephrology, Bone & Mineral Metabolism [address], [address] [place] [address] Eagle Egan MD Acute kidney injury (CMS/HCC) (Primary Dx); Hypertension, unspecified type; Iron deficiency anemia, unspecified iron deficiency anemia type; Other hyperlipidemia 12/12/2024 Travel 11/30/2024 Telephone [facility] Nephrology, Bone & Mineral Metabolism [address], [address] [place] [phone] Eagle Egan MD 11/02/2024 Telephone [facility] Nephrology, Bone & Mineral Metabolism [address] [facility], [address] [place] [address] Eagle Egan MD [facility] - Patient Message 10/24/2024 4:00 PM EDT Office Visit [facility] Nephrology, Bone & Mineral Metabolism [address] [facility], [address] [place] [address] Eagle Egan MD Acute kidney injury (CMS/HCC) (Primary Dx); Hypertension, unspecified type; Iron deficiency anemia, unspecified iron deficiency anemia type; Other hyperlipidemia 10/24/2024 Travel from Last 3 Months Family History Medical History Relation Name Comments Conversions - Other Brother 1 CAD (cor onary artery disease), soboba coronary artery Diabetes Brother 2 Thyroid cancer Brother 3 Colon cancer Father Conversions - Other Father CAD (cor onary artery disease), soboba coronary artery Diabetes Father Stroke Father No [...] Mass Index 26.52 12/12/2024 2:11 PM EDT Plan of Treatment Upcoming Encounters Date Type Department Care Team (Late st Contact Info) Description 04/05/2025 1:00 PM EST Office Visit [facility] [address] [place] [address] Eagle Egan MD [address] [place] [address] Health Maintenance Due Date Last Done Comments [facility]-Depression Screening 1961 [facility]-Diabetes: Hemoglobin A1C 1961 [facility]-HIV Screening 1961 [facility]-Hepatitis C Screening 1961 [facility]-Medicare Annual Wellness (AWV) 1961 [facility]-/Child/Adol SDOH Screenings 1961 Diabetes: Dental Exam 1971 [...] - Risk 60-74 years 1-dose series) 2021 [id number] Vaccine (3 - 2024- season) 2024 04/27/2021, 06/26/2020 [facility]-Influenza Vaccine (#1) 12/17/202402/14, 02/20/2019, 01/24/2018, Additional history exists [facility]-Obesity Intervention Completed 12/12/2024, 12/2024 HPV Vaccines Aged Out No longer eligi [...] patient's age to complete this topic Insurance [facility] MEDICARE Care Teams Trial Attorney Relationship Specialty Start Date End Date Fred Solomon DO [address] [place] [address] PCP - General 11/13/24
--- OUTSIDE RECORDS SUMMARY | 2025-01-16 07:43 | XMS_ITS | Encounter Summary ---
Author Organization [facility] Address [address] [place] [address] Care Team Providers Care Hairspring I Inspector Name Role Phone Fred Solomon DO Primary Care Provider [phone] Encounter Details Date Type Department Care Team (Latest Contact Info) Description 12/12/2024 Travel Social History Tobacco Use Types Packs/Day [...] Upcoming Encounters Date Type Department Care Team ([facility] st Contact Info) Description 04/05/2025 1:00 PM EST Office Visit [facility] [address] [place] [phone] Eagle Egan MD [address] [place] [phone] documented as of this encounter Visit Diagnoses Not on filedocumented in this encounter Additional Health Concerns Assessment Noted Time A fall risk assessment has been complete d for the patient 12/12/2024 2:20 PM EDT A Body Mass Index follow-up plan has been documented for the patient 12/12/2024 7:16 PM EDT documented as of this encounter Care Teams Hairspring I Inspector Relationship Specialty Start Date End Date Fred Solomon DO [address] [place], [place] [address] PCP - General 11/13/24 documented as of this encounter
--- OUTSIDE RECORDS SUMMARY | 2025-01-16 07:43 | XMS_ITS | Encounter Summary ---
Author Organization [facility] Address [address] [place] [address] Care Team Providers Care Psychiatric Rn Name Role Phone Fred Solomon DO Primary Care Provider [phone] Reason for Visit * Reason Onset Date Comments HCN Clinical Concern/Question 12/21/2024 Encounter Details Date Type Department Care Team ([facility] Contact Info) Description 12/21/2024 Telephone Professional [facility] Nephrology, Bone & Mineral Metabolism [address], [address] [place] [address] HCN Clinical Concern/Question Social History Tobacco Use Types Packs/Day Years [...] encounter Miscellaneous Notes * Telephone Encounter - Marley Argueta Cassandra - 12/21/2024 9:51 AM EDT Clinical Concern/Question Reason for Call: Patients asking if test results were received. Best contact number: [phone] (home) Optimal time of day to reach caller: ANYTIME Additional comments/information from caller: None Note: Please do not reply to this message. Follow-up communication and further actions as a result of this message need to be communicated with the patient directly, if the patient is not active onMyChart. If the patient is active on MyChart, they will receive notification of the communication/outcome via [employer]hart. documented in this encounter Plan of Treatment Upcoming Encounters Date Type Department Care Team (Late st Contact Info) Description 04/05/2025 1:00 PM EST Office Visit [facility] [address] [place] [phone] Eagle Egan MD [address] [place] [phone] documented as of this encounter Visit Diagnoses Not on filedocumented in this encounter Additional Health Concerns Assessment Noted Time A fall risk assessment has been complete d for the patient 12/12/2024 2:20 PM EDT A Body Mass Index follow-up plan has been documented for the patient 12/12/2024 7:16 PM EDT documented as of this encounter Care Teams Psychiatric Rn Relationship Specialty Start Date End Date Fred Solomon DO [address] [place] [address] PCP - General 11/13/24 documented as of this encounter
--- OUTSIDE RECORDS SUMMARY | 2025-01-16 07:43 | XMS_ITS | Encounter Summary ---
Author Organization [facility] Address [address] [place] [address] Care Team Providers Care Ventilating Engineer Name Role Phone Fred Solomon DO Primary Care Provider [phone] Encounter Details Date Type Department Care Team ([facility] Contact Info) Description 12/21/2024 Orders Only Professional [facility] Nephrology, Bone & Mineral Metabolism [address], [address] [place] [address] Zohreh Ortega MD [facility] [phone] Yeast infection (Primary Dx) Social History Tobacco Use Types [...] Department Care Team ([facility] Contact Info) Description 04/05/2025 1:00 PM EST Office Visit [facility] [address] [place] [phone] Eagle Egan MD [address] [place] [address] documented as of this encounter Visit Diagnoses Diagnosis Yeast infection- Primary documented in this encounter Additional Health Concerns Assessment Noted Time A fall risk assessment has been complete d for the patient 12/12/2024 2:20 PM EDT A Body Mass Index follow-up plan has been documented for the patient 12/12/2024 7:16 PM EDT documented as of this encounter Care Teams Ventilating Engineer Relationship Specialty Start Date End Date Fred Solomon DO [address] [place] [address] [place] [address] PCP - General 11/13/24 documented as of this encounter
--- OUTSIDE RECORDS SUMMARY | 2025-01-16 07:44 | XMS_ITS | Encounter Summary ---
Author Organization [facility] Address [address] [place] [address] Care Team Providers Care Vocational Guidance Counselor Name Role Phone Fred Solomon Primary Care Provider [phone] Encounter Details Date Type Department Care Team ([facility] Contact Info) Description 11/30/2024 Telephone [facility] Nephrology, Bone & Mineral Metabolism [address], [address] [place] [address] Eagle Egan MD [address] [place] [address] Social History Tobacco Use Types [...] Lab orders Due Date: 11/30/2024 [facility] Best contact number: [phone] Optimal time of day to reach caller: [...] Description 04/05/2025 1:00 PM EST Office Visit [facility] [address] [place] [phone] Eagle Egan MD [address] [place] [phone] documented as of this encounter Visit Diagnoses Not on filedocumented in this encounter Additional Health Concerns Assessment Noted Time A fall risk assessment has been complete d for the patient 10/24/2024 4:02 PM EDT A Body Mass Index follow-up plan has been documented for the patient 10/25/2024 10:08 AM EDT documented as of this encounter Care Teams Vocational Guidance Counselor Relationship Specialty Start Date End Date Fred Solomon DO [address] [place] [address] PCP - General 11/13/24 documented as of this encounter
--- OUTSIDE RECORDS SUMMARY | 2025-01-16 07:44 | XMS_ITS | Encounter Summary ---
Author Organization [facility] Address [address] [place] [address] Care Team Providers Care Application Tester Name Role Phone Tin Cutler MD Primary Care Provider [phone] Fred Solomon DO Primary Care Provider [phone] Reason for Referral * Consultation (Routine) - Closed Specialty Diagnoses / Procedures Referred By Naresh t Referred To Contact Nephrology Diagnoses Acute renal failure, unspecified acute renal failure type (CMS/HCC) Fiorella Nichols APRN [address] [address] Phone: tel: fax: [facility] Nephrology, Bone & Mineral Metabolism [address], [address] [place] [address] Phone: tel: fax: Referral ID Status Reason Start Date Expiration Date V isits Requested Visits Authorized [id number] Closed Specialty Services Required 10/03/2024 04/04/2026 1 1 Encounter Details Date Type Department Care Team (Late st Contact Info) Description 10/03/2024 Community [facility] [address] [place] [address] Fiorella Nichols APRN [address] [address] Acute renal failure, unspecified acute [...] Description 04/05/2025 1:00 PM EST Office Visit [facility] [address] [place] [phone] Eagle Egan MD [address] [place] [phone] Scheduled Referrals Name Type Priority Associated Diagnoses Orde r Schedule Ambulatory referral to Nephrology Outpatient Referral Routine Acute renal failure, unspecified acute renal failure type (CMS/HCC) Expected: 10/10/2024, Expires: 04/06/2026 documented as of this encounter Visit Diagnoses Diagnosis Acute renal failure, unspecified acute renal failure type (CMS/HCC)- Primary documented in this encounter Care Teams Application Tester Relationship Specialty Start Date End Date Tin Cutler MD [address] [place] [address] PCP - General 08/29/20 11/12/24 Fred Solomon DO [address] [place] [address] PCP - General 11/13/24 documented as of this encounter
[2025-01-16] MEDS: ALBUTEROL 0.083% 2.5 MG/3 ML NEB IH (08:36)
--- NOTE | 2025-01-16 08:36 | PC.NURSE ---
PFT completed without incident. Albuterol 0.083% given via HHN, per written protocol, Pt tolerated tx well. 6 Minute Walk Test attempted, Pt states she has a bad back and bad legs, walked 2minutes on room air.
== END 2025-01-16 23:59 | disposition home or self-care (01) ==
LOC: RT 07:42
PROVIDERS: PCP Internal Medicine; Visit Provider Internal Medicine Pulmonary Disease
DX: J44.9 Chronic obstructive pulmonary disease, unspecified (principal); R94.2 Abnormal results of pulmonary function studies
CPT/HCPCS: 94060; 94618; 94726; 94729

== ENCOUNTER 2025-03-27 14:24 | Outpatient (CLI) | payer MEDICARE, SELFPAY ==
--- NOTE | 2025-03-27 14:26 | XR_ITS ---
FINAL REPORT CLINICAL HISTORY: sob COMPARISON: 10/18/2024 FINDINGS: 2 views of the chest were obtained . The heart is normal in size. The mediastinum is within normal limits. Scarring at the left lung base. The lungs are otherwise clear. There is no pneumothorax. Osseous structures are unremarkable. IMPRESSION: No acute cardiopulmonary process. Reviewed, Interpreted and Dictated by Tani Reddy MD Transcribed by Aparna Almodovar Authenticated and [facility]
[2025-03-27 15:07] LABS: Hematocrit 26.3 % (37.0-47.0); Hemoglobin 8.7 g/dL (12.2-16.2); Immature Granulocytes % 0.7 %; Mean Corpuscular HGB Conc 33.1 g/dL (31.8-35.4); Mean Corpuscular Hemoglobin 29.5 pg (27.0-31.2); Mean Corpuscular Volume 89.2 fl (81-99); Nucleated Red Blood Cells % 0 %; Platelet Count 267 K/mm3 (142-424); Red Blood Count 2.95 M/mm3 (4.20-5.40); Red Cell Distribution Width-SD 40.8 fL; White Blood Count 9.7 K/mm3 (4.8-10.8)
[2025-03-27 16:00] LABS: Alanine Aminotransferase 19 U/L (12-78); Albumin Level 4.3 g/dl (3.5-5.0); Alkaline Phosphatase 105 U/L (38-126); Anion Gap 19.4 mEq/L (5-15); Aspartate Amino Transferase 26 U/L (14-36); Bilirubin,Direct 0.3 mg/dl (0.0-0.4); Bilirubin,Indirect 0.1 mg/dL (0.0-0.9); Bilirubin,Total 0.4 mg/dl (0.2-1.3); Bilirubin,Unconjugated 0.1 mg/dL (0.0-1.1); Blood Urea Nitrogen 45 mg/dl (7-17); Calcium 9.3 mg/dl (8.4-10.2); Carbon Dioxide 25 mmol/L (22.0-30.0); Chloride 96 mmol/L (98-107); Cholesterol 164 mg/dl (140-200); Creatinine,Serum 1.50 mg/dl (0.52-1.04); Estimated Glomerular Filt Rate 35 ml/min (>60); GFR (African American) 42 ML/MIN (>60); Glucose 293 mg/dl (74-100); HDL Cholesterol 69 mg/dl (40-60); Magnesium 2.1 mg/dl (1.6-2.3); Potassium 4.4 mmoL/L (3.5-5.1); Sodium 136 mmol/L (136-145); Triglycerides 205 mg/dl (30-150)
[2025-03-27 16:09] LABS: NT Pro Brain Natriuretic Pep. 248 pg/mL (0-125)
[2025-03-27 16:14] LABS: Free T4 (Free Thyroxine) 1.70 ng/dl (0.78-2.19)
[2025-03-27 16:30] LABS: Thyroid Stimulating Hormone 1.45 uIU/mL (0.465-4.68)
[2025-03-27 16:35] LABS: Total Protein,Serum 6.9 g/dl (6.3-8.2)
== END 2025-03-27 23:59 | disposition home or self-care (01) ==
LOC: LAB 14:25
PROVIDERS: PCP Internal Medicine; Visit Provider Internal Medicine
DX: I65.23 Occlusion and stenosis of bilateral carotid arteries (principal); E78.2 Mixed hyperlipidemia; I25.10 Atherosclerotic heart disease of native coronary artery without angina pectoris; I11.0 Hypertensive heart disease with heart failure; I50.33 Acute on chronic diastolic (congestive) heart failure
CPT/HCPCS: 36415; 71046; 80048; 80061; 80076; 83735; 83880; 84439; 84443; 85025

== ENCOUNTER 2025-04-01 09:04 | Outpatient (CLI) | payer MEDICARE, SELFPAY ==
[2025-04-01 09:09] LABS: Microscopic, Urine URINE MICROSCOPIC (MICROSCOPIC)
[2025-04-01 09:53] LABS: Albumin Level 4.7 g/dl (3.5-5.0); Anion Gap 17.6 mEq/L (5-15); Blood Urea Nitrogen 47 mg/dl (7-17); Calcium 9.2 mg/dl (8.4-10.2); Carbon Dioxide 26 mmol/L (22.0-30.0); Chloride 94 mmol/L (98-107); Creatinine,Serum 1.40 mg/dl (0.52-1.04); Estimated Glomerular Filt Rate 38 ml/min (>60); GFR (African American) 46 ML/MIN (>60); Glucose 192 mg/dl (74-100); Phosphorous 5.5 mg/dl (2.5-4.5); Potassium 4.6 mmoL/L (3.5-5.1); Sodium 133 mmol/L (136-145); Uric Acid 4.5 mg/dl (2.5-6.2)
[2025-04-01 10:07] LABS: Bilirubin,Urine Negative (Negative); Color,Urine YELLOW (Yellow); Glucose,Urine (UA) 3+ (Negative); Ketones,Urine Negative (Negative); Leukocyte Esterase,Urine Negative (Negative); PH,Urine 5.5 (5.0-8.5); Protein,Urine Negative (Negative); Specific Gravity, Urine 1.015 (1.005-1.030); Urobilinogen,Urine 0.2 EU/dl (0.2)
[2025-04-01 10:09] LABS: 25-OH Vitamin D, Total 43.9 ng/mL (30-100)
== END 2025-04-01 23:59 | disposition home or self-care (01) ==
LOC: LAB 09:04
PROVIDERS: PCP Internal Medicine; Visit Provider Student in an Organized Health Care Education/Training Program
DX: N17.9 Acute kidney failure, unspecified (principal)
CPT/HCPCS: 36415; 80069; 81001; 82043; 82306; 82570; 83970; 84550

== ENCOUNTER 2025-04-03 13:38 | Outpatient (CLI) | payer MEDICARE, SELFPAY ==
--- OUTSIDE RECORDS SUMMARY | 2025-02-22 09:50 | XMS_ITS | Encounter Summary ---
Author Organization [employer] ([place], [place], [place], [place], [place]) Address [address] [place] [address] Care Team Providers Care Sand Cutter Name Role Phone Unavailable Primary Care Provider Unavailabl e Reason for Referral * CAT Scan (Routine) - Pending Review Specialty Diagnoses / Procedures Referred By Naresh croft Referred To Contact Radiology Diagnoses Carotid stenosis Procedures CTA NECK Eagle Quiles DO [address] [facility] [place] [address] Phone: tel: fax: Referral ID Status Reason Start Date Expiration Date V isits Requested Visits Authorized [id number] Pending Review 02/22/2025 02/22/2026 1 1 Reason for Visit * CAT Scan (Routine) - Pending Review Specialty Diagnoses / Procedures Referred By Naresh croft Referred To Contact Radiology Diagnoses Carotid stenosis Procedures CTA NECK Eagle Quiles DO [facility] [facility] [place] [address] Phone: tel: fax: Referral ID Status Reason Start Date Expiration Date V isits Requested Visits Authorized [id number] Pending Review 02/22/2025 02/22/2026 1 1 Encounter Details Date Type Department Care Team (Latest Contact Info) Description 02/22/2025 9:50 AM EST - 02/22/2025 11:59 PM EST Hospital [facility] [address] [facility] [address] [place] [phone] Eagle Quiles DO [address] [facility] [place] [address] [place] [address] Carotid stenosis Discharge Disposition: Home or Self Care Social History Tobacco Use Types Packs/Day Years Used Date Smoking Tobacco: Never Assessed Comments Unknown Sex and Gender Information Value Date Recorded Sex Assigned at Not on file Legal Sex Female 1:43 PM CDT Gender Identity Not on file Sexual Orientation Not on file documented as of this encounter Plan of Treatment Not on file documented as of this encounter Procedures Procedure Name Priority Date/Time Associated Diagnosis Comments CTA NECK Routine 02/22/2025 10:16 AM EST Carotid stenosis documented in this encounter Results * CTA NECK (02/22/2025 10:16 AM EST) Anatomical Region Laterality Modality Neck, Head, Carotid Computed Rj ography (CT) 02/22/2025 5:15 PM EST Impressions 02/22/2025 5:21 PM EST No evidence of right carotid stenosis. Heavily calcified plaque at the left carotid bifurcation decreases accuracy but there is 50-60% diameter stenosis. If indicated, this could be further evaluated with catheter angiogram. No evidence of significant vertebral artery stenosis. Images reviewed, interpreted, and dictated by Ronnie Sandoval MD Narrative 02/22/2025 5:21 PM EST CTA CAROTID HISTORY: Abnormal ultrasound, bilateral carotid stenosis. Prior right carotid endarterectomy. COMPARISON: None TECHNIQUE: Thin section axial CT with IV contrast supplemented with multiplanar reconstruction under CT Angiogram protocol. This study was performed with techniques to keep radiation doses as low as reasonably achievable, (ALARA). Individualized dose reduction techniques using automated exposure control or adjustment of mA and/or kV according to the patient size were employed. NASCET criteria was utilized during interpretation. FINDINGS: Aortic arch: Arch shows no significant narrowing. Great vessel origins are widely patent. Right carotid: There is no evidence of common carotid stenosis. Postoperative changes are seen from endarterectomy. No significant internal carotid stenosis is identified. Left carotid: A less than 50% stenosis is seen of the common carotid artery. Heavily calcified plaque is seen at the level of the carotid bifurcation and carotid bulb which makes evaluation more difficult. Moderate, approximately 50-60% stenosis is seen at the left carotid bulb. Mild stenosis is seen more distally less than 50%. The external carotid artery is patent. Vertebrals: The vertebral arteries are codominant. No significant stenosis is present. Procedure Note Ronnie Sandoval MD - 02/22/2025 CTA CAROTID HISTORY: Abnormal ultrasound, bilateral carotid stenosis. Prior right carotid endarterectomy. COMPARISON: None TECHNIQUE: Thin section axial CT with IV contrast supplemented with multiplanar reconstruction under CT Angiogram protocol. This study was performed with techniques to keep radiation doses as low as reasonably achievable, (ALARA). Individualized dose reduction techniques using automated exposure control or adjustment of mA and/or kV according to the patient size were employed. NASCET criteria was utilized during interpretation. FINDINGS: Aortic arch: Arch shows no significant narrowing. Great vessel origins are widely patent. Right carotid: There is no evidence of common carotid stenosis. Postoperative changes are seen from endarterectomy. No significant internal carotid stenosis is identified. Left carotid: A less than 50% stenosis is seen of the common carotid artery. Heavily calcified plaque is seen at the level of the carotid bifurcation and carotid bulb which makes evaluation more difficult. Moderate, approximately 50-60% stenosis is seen at the left carotid bulb. Mild stenosis is seen more distally less than 50%. The external carotid artery is patent. Vertebrals: The vertebral arteries are codominant. No significant stenosis is present. IMPRESSION: No evidence of right carotid stenosis. Heavily calcified plaque at the left carotid bifurcation decreases accuracy but there is 50-60% diameter stenosis. If indicated, this could be further evaluated with catheter angiogram. No evidence of significant vertebral artery stenosis. Images reviewed, interpreted, and dictated by Ronnie Sandoval MD us Eagle Iltis DO IMG CT ORDERABLES Final Result documented in this encounter Visit Diagnoses Diagnosis Carotid stenosis Occlusion and stenosis of carotid artery without mention of cerebral infarction documented in this encounter Administered Medications Inactive Administered Medications - up to 3 most recent administrations Medication Order MAR Action Action Date Dose Rate Site iopamidoL (ISOVUE-370) 370 mg iodine /mL (76 %) injection 75 mL 75 mL IMG once as needed, intravenous, contrast, Starting on Tue02/22/25 at 0955, For 1 dose, Intra-op Given 02/22/2025 10:26 AM EST 75 mLs documented in this encounter
--- OUTSIDE RECORDS SUMMARY | 2025-03-12 13:25 | XMS_ITS | Encounter Summary ---
Author Organization [employer] ([place], [place], [place], [place], [place]) Address [address] [place] [address] Care Team Providers Care Cosmetic Sales Assistant Name Role Phone Fred Solomon MD Primary Care Provider + Reason for Visit * Auth/Cert (Routine) Specialty Diagnoses / Procedures Referred By Contac t Referred To Contact Diagnoses Medical history unknown UNKNOWN Procedures AL TEAEC W/PATCH GRF CAROTID VERTB SUBCLAV NECK INC ENDARTERECTOMY, CAROTID [facility] Operating Room [address] [place] [address] Phone: tel: fax: [facility] Operating Room [address] [place] [address] Phone: tel: fax: Referral ID Status Reason Start Date Expiration Date Visits Re quested Visits Authorized [id number] 1 1 Encounter Details Date Type Department Care Team (Latest Contact Info) Description 03/12/2025 1:25 PM EST - 03/12/2025 4:05 PM [facility] Hospital Encounter [facility] Preadmission Testing [address] [place] [address] Eagle Quiles DO [address] [facility] [place] [address] Preop testing (Primary Dx) Discharge Disposition: Home or Self Care Anesthesia Record Procedure Summary Procedure Name Responsible Anesthesiologist Anesthesia Start Time Anesthesia Stop Time Events No events on file. Meds * Agents No agents on file. * Blood No blood administrations on file. Lines, Drains, and Airways No LDAs on file. documented in this encounter Social History Tobacco Use Types Packs/Day Years Used Date Smoking Tobacco: Former Cigarettes Q uit: 2019 Smokeless Tobacco: Current Tobacco Cessation:Ready to Q uit: Not Asked Comments:Quit on 2019, Vapes daily Alcohol Use Standard Drinks/Week Comments Not Currently 0 (1 standard drink = 0.6 oz pur e alcohol) Comments No Sex and Gender Information Value Date Recorded Sex Assigned at Not on file Legal Sex Female 1:43 PM CDT Gender Identity Not on file Sexual Orientation Not on file documented as of this encounter Last Filed Vital Signs Vital Sign Reading Time Taken Comments Blood Pressure 140/47 03/12/2025 1:53 PM EST Pulse 71 03/12/2025 1:53 PM EST Temperature 36.8 C (98.2 F) 03/12/2025 1:53 PM EST Respiratory Rate 16 03/12/2025 1:53 PM EST Oxygen Saturation 96% 03/12/2025 1:53 PM EST Inhaled Oxygen Concentration - - Weight 68 kg (150 lb) 03/12/2025 1:53 PM EST Height 160 cm (5' 3 ) 03/12/2025 1:53 PM EST Body Mass Index 26.57 03/12/2025 1:53 PM EST documented in this encounter Discharge Instructions * Discharge Instructions* Keren Piper RN - 03/11/2025 4:59 PM EST Please arrive to the hospital on: 03/13/25 Please arrive by: 6:30 am Day of Surgery Instructions: Please arrive at the hospital on time. If you are unable to arrive at your designated time, call the Outpatient Surgery Department at [phone] or ext [phone] Arrive at the hospital at your designated time, and park in the main visitor parking area. GO TO ADMITTING TO REGISTER FOR SURGERY. You will be notified by outpatient surgery staff, the afternoon before surgery, regarding the time of your arrival the morning of surgery. If you have any questions, please call the above phone number. If you are going home the same day as your surgery, you MUST have a responsible adult over the age of [address] you home, and REMAIN with you 24 hours after surgery. PLEASE NOTE: If you do not have a responsible adult with you the day of surgery, your surgery may be cancelled. DO NOT EAT OR DRINK ANYTHING AFTER MIDNIGHT: the night before your surgery unless otherwise indicated. This includes water, coffee, gum, mints, tobacco, etc. You may brush your teeth the morning of surgery. Try not to smoke for 2 weeks prior to surgery. DO NOT chew tobacco or use any form of tobacco 24 hours before surgery. DO NOT drink alcohol or take illicit drugs 24 hours before surgery. On the day of surgery, please take only the medications you are instructed to take. Please bring inhalers with you on the day of surgery. Please DO NOT take any NSAIDS (Ibuprofen, Blood thinners, Aspirin, Motrin, Aleve, Celebrex, etc) unless approved by your physician. DO NOT wear any jewelry (including rings and body piercings), hair pins, makeup or nail vietnamese on fingers or toes on the day of surgery. If you wear contact lenses, please bring a case and solution to put them in. If you wear glasses orhearing aids, please bring a case to put those in. DIABETICS: please check your blood sugar the morning of surgery. Follow instructions given to you by the nurse. If your blood sugar is high, do what you would normally do. If you are admitted, please leave belongings in the car and have family bring them to your room later. Leave valuables such as money, credit cards or jewelry at home. Please contact your surgeon for any physical changes such as cold, flu, fever, or if you're unable to come for surgery. If you suspect you may be , please notify your physician. Bring a copy of any healthcare directives, and legal documents such as a living will, healthcare surrogate, power of corporate attorney, or legal guardianship verification to the hospital on the day of surgery. GENERAL INSTRUCTIONS FOR POST OP CARE: -For the next 24 hours: Have a responsible adult (over the age of 18) with you for your safety and protection Do NOT drive, work around machines, or use any type of power equipment Do NOT smoke Do NOT drink alcohol or while on pain medication Do NOT make any important decisions, or sign any important paperwork -After surgery, you may have a sore throat, muscle aches, dizziness, and feel tired or sleepy - You may resume medications unless directed not to by your doctor. - Your first meal after surgery should be light, and gradually increase your diet to what is normalfor you. In case of nausea, avoid solid food and take only clear liquids as tolerated. - After surgery, please plan to spend a quiet, relaxed evening at home. Resume your normal activityas prescribed by your doctor, and as tolerated. HANGER HANGER * Attachments The following attachments cannot be sent through Care Everywhere. * General Anesthesia Adult (Maltese) documented in this encounter Medications at Time of Discharge albuterol 90 mcg/actuation inhaler Inhale by mouth every 6 (six) hours as needed for wheezing. amLODIPine (NORVASC) 10 MG tablet Take 1 tablet (10 mg total) by mouth in the morning. aspirin 81 MG EC tablet Take 1 tablet (81 mg total) by mouth every evening. atorvastatin (LIPITOR) 20 MG tablet Take 1 tablet (20 mg total) by mouth nightly. carvediloL (COREG) 12.5 MG tablet Take 1 tablet (12.5 mg total) by mouth 2 (two) times daily with breakfast and dinner. cetirizine (ZyrTEC) 10 MG tablet Take 1 tablet (10 mg total) by mouth in the morning. DULoxetine (CYMBALTA) 30 MG capsule Take 1 capsule (30 mg total) by mouth in the morning. empagliflozin-stu agliptin (Glyxambi) 10-5 mg per tablet Take 1 tablet by mouth every evening. gabapentin (NEURONTIN) 100 MG capsule Take 1 capsule (100 mg total) by mouth 2 (two) times daily. magnesium aspart,citrate,ox felecia 400 mg magnesium cap Take by mouth in the morning. metoprolol tartrate (LOPRESSOR) 25 MG tablet Take 0.5 tablets (12.5 mg total) by mouth every evening. morphine sulfate (MORPHINE, BULK, MISC) Receives Morphine through intrathecal pump. Pt does not know concentration or rate.. mv-mn/folic acid/K1/genistein (CENTRUM MENOPAUSE MULTIVITAMIN ORAL) Take by mouth in the morning. ondansetron (ZOFRAN) 4 MG tablet Take 1 tablet (4 mg total) by mouth every 6 (six) hours as needed for nausea or vomiting. pantoprazole (PROTONIX) 40 MG tablet Take 1 tablet (40 mg total) by mouth in the morning. rOPINIRole (REQUIP) 0.5 MG tablet Take 1 tablet (0.5 mg total) by mouth in the morning. rOPINIRole (REQUIP) 1 MG tablet Take 1 tablet (1 mg total) by mouth every evening. umeclidinium-krishna nteroL (Anoro Ellipta) 62.5-25 mcg/actuation dsdv Inhale by mouth every evening. documented as of this encounter Progress Notes * Shruti Clifton RN - 03/12/2025 2:00 PM ESTSummary: Critical Glucose RN received critical result of glucose 626. PAT GABRIEL maya notified to contact pt since pt was already discharged from facility to go home before critical results were called. Dr. Jeffers stated Pt needsto see primary care today ramón or go to the nearest ER to get treatment. Pt is scheduled for surgery tomorrow 03/13/[address] Quiles, surgeon notified of critical result. HANGER documented in this encounter Procedure Notes * Keren Piper RN - 03/12/2025 2:00 PM EST Received call from Pre-Op RN stating that lab called a critical glucose. Pt's glucose 626. Called pt (No answer), called pt's spouse and asked if pt was still on hospital property and was told yes. Explained that pt's glucose is 626 and we needed her to stay on site while I speak to anesthesia. Peranesthesia, pt needs to see PCP today or go to ER. Attempted to call PCP [phone] x [phone] & went to . Talked to pt's spouse and explained that pt needed to go to ER for evaluation. Asked spousehow pt's glucose has been running and he stated they check it last week and it wasn't bad . Pt is scheduled to have surgery at [facility] in the am. Left message for surgeon's rehabilitation aide/scheduler indicating the above. PAT manager insurance calling surgeon as well. HANGER documented in this encounter Plan of Treatment Not on file documented as of this encounter Procedures Procedure Name Priority Date/Time Associated Diagnosis Comments CBC W/ AUTO DIFF STAT 03/12/2025 2:33 PM EST Preop testing PT/INR, PTT STAT 03/12/2025 2:33 PM EST Preop testing BASIC METABOLIC PANEL STAT 03/12/2025 2:33 PM EST Preop testing FS_MODEL_IP_ECG 12-LEAD Routine 03/12/2025 1:53 PM EST Preop testing EKG-SCANNED 03/12/2025 documented in this encounter Results * (ABNORMAL) CBC with automated diff (03/12/2025 2:33 PM EST) WBC 6.4 4.0 - 10.0 K/ L 03/12/2025 2:44 PM [facility] RBC 3.32(L) 3.93 - 5.22 M/ L 03/12/2025 2:44 PM [facility] Hemoglobin 10.0(L) 11.2 - 15.7 GM/DL 03/12/2025 2:44 PM [facility] Hematocrit 29.6(L) 34.1 - 44.9 % 03/12/2025 2:44 PM [facility] MCV 89 79 - 95 fL 03/12/2025 2:44 PM [facility] MCH 30.1 25.6 - 32.2 pg 03/12/2025 2:44 PM [facility] MCHC 33.8 32.2 - 35.5 GM/DL 03/12/2025 2:44 PM [facility] RDW 12.1 11.7 - 14.4 % 03/12/2025 2:44 PM [facility] Platelets 210 140 - 375 K/CU MM 03/12/2025 2:44 PM [facility] MPV 9.7 9.4 - 12.3 fL 03/12/2025 2:44 PM [facility] % Neutros 78(H) 34 - 71 % 03/12/2025 2:44 PM [facility] % Lymphs 13(L) 19 - 52 % 03/12/2025 2:44 PM [facility] % Monos 6 5 - 13 % 03/12/2025 2:44 PM [facility] % Eos 2.3 1.0 - 6.0 % 03/12/2025 2:44 PM [facility] % Baso 1 0 - 1 % 03/12/2025 2:44 PM [facility] NRBC Absolute <0.01 0 - 0.012 K/ul 03/12/2025 2:44 PM [facility] # Neutros 4.99 1.56 - 6.13 K/ L 03/12/2025 2:44 PM [facility] # Lymphs 0.84(L) 1.18 - 3.74 K/ L 03/12/2025 2:44 PM [facility] # Monos 0.38 0.24 - 0.86 K/ L 03/12/2025 2:44 PM [facility] # Eos 0.15 0.04 - 0.36 K/ L 03/12/2025 2:44 PM [facility] # Baso 0.05 0.01 - 0.08 K/ L 03/12/2025 2:44 PM [facility] % Imm Grans 0.50(H) 0.01 - 0.43 % 03/12/2025 2:44 PM [facility] # IG 0.03 0.00 - 0.03 K/uL 03/12/2025 2:44 PM [facility] Blood Venipuncture / Unknown 03/12/2025 2:33 PM EST 03/12/2025 2:42 PM [facility] - 03/12/2025 2:44 PM EST When CBC w/ Auto Diff is ordered the lab will add a Manual Differential as a quality check at no additional charge if: Lymphocytes greater than seventy five percent with normal or increased WBC Monocytes greater than Fifteen percent Basophil greater than four percent Bands >10% or several immature myeloids are seen on scan Blast? Flag noted Atypical Lymph flag noted us Eagle Iltis DO LAB BLOOD ORDERABLES Final Resul t Performing Organization Address [facility] Co ma Phone Number [facility] [address] [phone] * PT/INR, PTT (03/12/2025 2:33 PM EST) Pathologist [facility] aPTT 27.7 22.0 - 32.0 seconds 03/12/2025 2:56 PM EST [facility] Protime 10.1 9.0 - 12.0 seconds 03/12/2025 2:56 PM EST [facility] INR 0.90 0.80 - 1.10 03/12/2025 2:56 PM EST [facility] Blood Venipuncture / Unknown 03/12/2025 2:33 PM EST 03/12/2025 2:42 PM EST [facility] DO LAB BLOOD ORDERABLES Final Resul t Performing Organization Address [facility] Co ma Phone Number [facility] [address] [phone] * (ABNORMAL) Basic Metabolic Panel (03/12/2025 2:33 PM EST) Sodium 129(L) 136 - 145 meq/L 03/12/2025 3:31 PM EST [facility] Potassium 4.9 3.4 - 5.1 meq/L 03/12/2025 3:31 PM EST [facility] CO2 25 22 - 29 meq/L 03/12/2025 3:31 PM EST [facility] Chloride 94(L) 98 - 112 meq/L 03/12/2025 3:31 PM EST [facility] Glucose 626(HH) 82 - 115 mg/dL 03/12/2025 3:31 PM [facility] BUN 35.0(H) 9.8 - 20.1 mg/dL 03/12/2025 3:31 PM [facility] Creatinine 2.17(H) 0.50 - 1.20 mg/dL 03/12/2025 3:31 PM [facility] BUN/Creatinine 16 8 - 20 03/12/2025 3:31 PM [facility] Calcium 9.4 8.4 - 10.2 mg/dL 03/12/2025 3:31 PM [facility] Anion Gap 15(H) 4 - 12 03/12/2025 3:31 PM [facility] eGFR (mL/min/1.73m2) 25(L) >=60 mL/min/1.7 3m2 03/12/2025 3:31 PM [facility] Comment:ESTIMATED GFR IS NOT ACCURATE CREATININE CLEARANCE IN PREDICTING GLOMERULAR FILTRATION RATE. ESTIMATED GFR IS NOT APPLICABLE FOR DIALYSIS PATIENTS. Osmolality Calc 296.2 mOsm/kg 3:31 PM [facility] Blood Venipuncture / Unknown 03/12/2025 2:33 PM EST 03/12/2025 2:42 PM EST us Eagle Quiles DO LAB BLOOD ORDERABLES Final Resul t Performing Organization Address City/State/[facility] Co de Phone Number [facility] [address] [phone] * ECG 12 lead (03/12/2025 1:53 PM EST) VENTRICULAR RATE EKG/MIN 74 BPM GE MUSE ATRIAL RATE (MCT) 74 BPM GE MUSE AL Interval 170 ms GE MUSE QRS-INTERVAL (MSEC) 78 ms GE MUSE QT Interval 500 ms GE MUSE QTC Interval 555 ms GE MUSE P [place] 64 degrees GE MUSE R AXIS (MCT) -7 degrees GE MUSE T Wave [place] 66 degrees GE MUSE [place] Diagnosis Normal sinus rhythm Low voltage QRS Prolonged QT Abnormal ECG No previous ECGs available Confirmed by Marcus Gamez ([id number]) on 03/20/2025 7:39:20 AM GE MUSE 03/12/2025 1:53 PM EST 03/20/2025 7:39 AM EST us Eagle Iltis DO ECG ORDERABLES Final Result GE MUSE * EKG-SCANNED (03/12/2025) Narrative 03/12/2025 Ordered by an unspecified provider. us Default Scanning Provider SCAN ORDERS Final Result documented in this encounter Visit Diagnoses Diagnosis Preop testing- Primary Unspecified pre-operative examination documented in this encounter Care Teams Cosmetic Sales Assistant Relationship Specialty Start Date End Date Fred Solomon MD [address] [place] [address] [place] [id number] PCP - General Internal Medicine 03/12/25 documented as of this encounter
--- OUTSIDE RECORDS SUMMARY | 2025-03-12 16:06 | XMS_ITS | Encounter Summary ---
Author Organization [employer] ([place], [place], [place], [place], [place]) Address [address] [place] [address] Care Team Providers Care Dirt Supervisor Name Role Phone Fred Solomon MD Primary Care Provider + Reason for Visit * Reason Comments Hyperglycemia * Auth/Cert (Routine) Specialty Diagnoses / Procedures Referred By Contac t Referred To Contact Diagnoses Medical history unknown UNKNOWN Procedures FL TEAEC W/PATCH GRF CAROTID VERTB SUBCLAV NECK INC ENDARTERECTOMY, CAROTID [facility] Operating Room [address] [place] [address] Phone: tel: fax: [facility] [address] [place] [address] Phone: tel: fax: Referral ID Status Reason Start Date Expiration Date Visits Re quested Visits Authorized [id number] 1 1 Encounter Details Date Type Department Care Team (Late st Contact Info) Description 03/12/2025 4:06 PM EST - 03/12/2025 8:27 PM EST Emergency [facility] Emergency Department 1 [place] [address] Tiffani Lim MD [address] [place] [address] Armen Dove DO [facility] [place] [address] Hyperglycemia (Primary Dx) Discharge Disposition: Home or Self Care Social History Tobacco Use Types Packs/Day Years Used Date Smoking Tobacco: Former Cigarettes Q uit: 2019 Smokeless Tobacco: Current Comments:Quit on 2019, Vapes daily Alcohol Use [...] Sign Reading Time Taken Comments Blood Pressure 165/67 03/12/2025 5:53 PM EST Pulse 82 03/12/2025 5:53 PM EST Temperature 36.4 C (97.6 F) 03/12/2025 4:02 PM EST Respiratory Rate 15 03/12/2025 4:02 PM EST Oxygen Saturation 90% 03/12/2025 5:53 PM EST Inhaled Oxygen Concentration - - Weight 68 kg (150 lb) 03/12/2025 4:02 PM EST Height 160 cm (5' 3 ) 03/12/2025 4:02 PM EST Body Mass Index 26.57 03/12/2025 4:02 PM EST documented in this encounter Discharge Instructions * Attachments The following attachments cannot be sent through Care Everywhere. * Hyperglycemia Naki-vb-Azux ([place]) documented in this encounter Medications at Time [...] every evening. documented as of this encounter ED Notes * Shivani Lerma RN - 03/12/2025 4:01 PM EST Pt presents to ED with complaints of blood sugar being 600. Pt reports she is having left carotid sx tomorrow and had PAT done today. Pt was called and told to come to ED because blood glucose in labwork was 626. Finger stick in triage 600. Repeat finger stick Hi [employer] * Armen Dove DO - 03/12/2025 4:01 PM EST Subjective Chief Complaint: Hyperglycemia 65 yr female presents to the ER with BG of 600. The pt states that she was just here for pre admission testing and called and told to go to the ER for her increased BG. The pt denies any symptoms andstates that her bg is usually 200- 300. The pt states that she feels her normal self. The pt states that she has a pain pump and has chronic back pain. The pt denies any recent illness. The BG in triage is 600. Pre op labs are in the computer form today. Trina Valdez APRN : Patient was seen in triage for a medical screening examination. A brief history and physical examination was performed in triage to initiate a work-up. Rest of care was providedin main ED by a provider. Patient History Past Medical History: Diagnosis Date Anemia Asthma Blood transfusion without reported diagnosis 10/2024 Carotid artery stenosis Chronic kidney disease, stage 2 (mild) Chronic pain COPD (chronic obstructive pulmonary disease) (HCC) Coronary artery disease Diabetes mellitus (HCC) Fibromyalgia GERD (gastroesophageal reflux disease) Hyperlipidemia Hypertension Mitral valve prolapse Neuropathy Restless legs Seasonal allergies Wears dentures only wears top plate Past Surgical History: Procedure Laterality Date APPENDECTOMY CAROTID ENDARTERECTOMY Right CARPAL TUNNEL RELEASE Right CHOLECYSTECTOMY DILATION AND CURETTAGE, DIAGNOSTIC / THERAPEUTIC EYE SURGERY Bilateral Cataract HYSTERECTOMY Intrathecal Pain Pump STENT PLACEMENT X3, 2 STOMACH- 1 ANKLE TONSILLECTOMY No family history on file. Social History Tobacco Use Smoking status: Former Current packs/day: 0.00 Types: Cigarettes Quit date: 2019 Years since quittin.9 Smokeless tobacco: Current Tobacco comments: Quit on 2019, Vapes daily Substance Use Topics Alcohol use: Not Currently I reviewed the HPI, ROS and PFSH documentation recorded by others in the medical record and supplemented my note as needed. Review of Systems Review of Systems Constitutional: Negative. HENT: Negative. Respiratory: Negative. Cardiovascular: Negative. Gastrointestinal: Negative. Endocrine: Diabetic Musculoskeletal: Positive for back pain. Skin: Negative. Allergic/Immunologic: Negative. Neurological: Negative. Hematological: Negative. Psychiatric/Behavioral: Negative. Physical Exam ED Triage Vitals Encounter Vitals Group BP Girls Systolic BP Percentile Girls Diastolic BP Percentile Boys Systolic BP Percentile Boys Diastolic BP Percentile Pulse Resp Temp Temp src SpO2 Weight Height Head Circumference Peak Flow Pain Score Pain Loc Pain Education Exclude from Growth Chart Physical Exam Vitals and nursing note reviewed. Cardiovascular: Rate and Rhythm: Normal rate. Pulses: Normal pulses. Pulmonary: Effort: Pulmonary effort is normal. Abdominal: Palpations: Abdomen is soft. Musculoskeletal: General: Normal range of motion. Skin: General: Skin is warm. Capillary Refill: Capillary refill takes less than 2 seconds. Neurological: General: No focal deficit present. Psychiatric: Mood and Affect: Mood normal. Neurological Exam Ortho Exam ED Course & MDM Medications sodium chloride 0.9% (NS) bolus (0 mLs intravenous Stopped 03/12/251718) sodium chloride 0.9% (NS) bolus (0 mLs intravenous Stopped 03/12/252015) insulin regular (HUMULIN R,NOVOLIN R) injection (10 Units intravenous Given 03/12/25 183) Results for orders placed or performed during the hospital encounter of 03/12/25 Urinalysis, Reflex Microscopic and Culture If Indicated Result Value Ref Range Color, UA Colorless Clarity, UA Clear Clear Specific Barton, UA 1.019 1.005 - 1.030 pH, UA 6.0 6.0 - 8.0 Leukocytes, UA Negative Negative Nitrite, UA Negative Negative Protein, UA Negative Negative Glucose, UA 4+ (A) Normal Ketones, UA Negative Negative Bilirubin, UA Negative Negative Blood, UA Negative Negative Urobilinogen, UA Normal Normal Specimen Source Urine, Clean Catch CBC with Auto Diff Result Value Ref Range WBC 6.8 4.0 - 10.0 K/??L RBC 3.31 (L) 3.93 - 5.22 M/??L Hemoglobin 10.0 (L) 11.2 - 15.7 GM/DL Hematocrit 29.5 (L) 34.1 - 44.9 % MCV 89 79 - 95 fL MCH 30.2 25.6 - 32.2 pg MCHC 33.9 32.2 - 35.5 GM/DL RDW 12.2 11.7 - 14.4 % Platelets 223 140 - 375 K/CU MM MPV 10.4 9.4 - 12.3 fL % Neutros 77 (H) 34 - 71 % % Lymphs 14 (L) 19 - 52 % % Monos 6 5 - 13 % % Eos 2.1 1.0 - 6.0 % % Baso 1 0 - 1 % NRBC Absolute <0.01 0 - 0.012 K/ul # Neutros 5.22 1.56 - 6.13 K/??L # Lymphs 0.94 (L) 1.18 - 3.74 K/??L # Monos 0.41 0.24 - 0.86 K/??L # Eos 0.14 0.04 - 0.36 K/??L # Baso 0.05 0.01 - 0.08 K/??L % Imm Grans 0.40 0.01 - 0.43 % # IG 0.03 0.00 - 0.03 K/uL Comprehensive metabolic panel Result Value Ref Range Sodium 128 (L) 136 - 145 meq/L Potassium 4.4 3.4 - 5.1 meq/L Chloride 93 (L) 98 - 112 meq/L CO2 22 22 - 29 meq/L Calcium 8.8 8.4 - 10.2 mg/dL Glucose 650 (HH) 82 - 115 mg/dL BUN 35.8 (H) 9.8 - 20.1 mg/dL Creatinine 2.08 (H) 0.50 - 1.20 mg/dL BUN/Creatinine 17 8 - 20 eGFR (mL/min/1.73m2) 26 (L) >=60 mL/min/1.73m2 Albumin 3.9 3.5 - 5.0 g/dL Alkaline Phosphatase 115 40 - 150 U/L ALT 11 <55 U/L AST 22 5 - 34 U/L Total Bilirubin 0.3 0.3 - 1.2 mg/dL Protein, Total 7.6 6.4 - 8.3 g/dL Globulin 3.7 2.5 - 4.1 g/dL Anion Gap 17 (H) 4 - 12 A/G Ratio 1.1 0.7 - 1.9 Osmolality Calc 296.0 mOsm/kg Magnesium Result Value Ref Range Magnesium 2.0 1.6 - 2.6 mg/dL Glucose, Nova Meter Result Value Ref Range POC-GLUCOSE 485 (HH) 70 - 110 mg/dL [employer] [id number] CG8+ ONDINA POC Result Value Ref Range PH, [place] POC 7.35 7.31 - 7.41 CG8+ PCO2, ONDINA-POC 43.6 41 - 51 mm/Hg CG8+ PO2, ONDINA-POC 36 30 - 55 mm/Hg CG8+ HCO3, OND[place]-POC 24.0 23.0 - 28.0 mmol/L CG8+ BASE EXCESS, OND[place]-POC -1.0 -2.0 - 3.0 mmol/L CG8+ SODIUM, OND[place]-POC 134 (L) 138 - 146 mmol/L CG8+ POTASSIUM, OND[place]-POC 3.9 3.5 - 4.9 mmol/L CG8+ GLUCOSE, OND[place]-POC 511 (HH) 70 - 105 mg/dL CG8+ O2 SAT., ONDINA- POC 67 40 - 85 % POC CO2 TOTAL O[place] 26 24 - 29 mmol/L POC HEMATOCRIT O[place] 28 (L) 38 - 51 %PCV POC HEMOGLOBIN [place] 9.5 (L) 12.0 - 17.0 g/dL POC IONIZED CALCIUM [place] 1.00 (L) 1.12 - 1.32 mmol/L [employer] [id number] No orders to display ED Course as of 03/12/252326Mar 12, 2025 190 [facility], Dr Dove, pending the rest of the workup. Patient was updated on all results prior to transition. Electronically signed by Tiffani Lim MD 03/12/25 7:09 PM [TB] ED Course User Index [TB] Tiffani Lim MD Procedures Medical Decision Making Amount and/or Complexity of Data Reviewed Labs: ordered. Risk OTC drugs. Prescription drug management. ED COURSE / MEDICAL DECISION MAKING: Dilia Chester is a 65 y.o. female who presents to the emergency department for evaluation of hyperglycemia. Patient states that her blood glucose typically runs in the 200s but had not checked it for approximately 2 weeks, Differential diagnosis includes hyperglycemia in the setting of diabetes, dehydration, DKA, other metabolic derangement among other etiologies. CBC CMP magnesium VBG urinalysis was ordered for further evaluation of the patient's presentation. Diagnostic information from other sources: Chart review Interventions: IV fluids, insulin Armen Dove DO I received this patient on sign out from Dr. Lim. 65 yo female with PMH significant for DMII presented after pre op testing showed hyperglycemia. Initial labs did show significant hyperglycemia without evidence of DKA. Pt was given normal saline and insulin. I received patient with repeat bloodglucose levels pending. Repeat Accu-Chek shows blood glucose level of 272. This is significantly improved. Patient is appropriate for discharge at this time. Review of initial workup shows glucose of650, CKD, normal anion gap normal CO2 of 22, sodium and chloride moderately decreased, uncorrected.CBC with normal white blood cell count chronic anemia hemoglobin 10.0. Magnesium normal at 2.0. pH was normal at 7.32. Appropriate for discharge at this time. Assessment & Plan Clinical Impression Diagnosis Comment Added By Time Added Hyperglycemia Armen Dove DO 03/12/2025 8:18 PM Disposition Discharge [1] - 03/12/2025 8:18 PM Discharge Medication List as of 03/12/2025 8:21 PM Electronically Signed By Armen Dove DO 03/12/25 2328 [employer] documented in this encounter Plan of Treatment Not on file documented as of this encounter Procedures Procedure Name Priority Date/Time Associated Diagnosis Comments NOVA GLUCOSE POC Routine 03/12/2025 8:01 PM EST URINALYSIS, REFLEX MICROSCOPIC AND CULTURE IF INDICATED STAT 03/12/2025 7:35 PM EST CG8+ ONDINA POC Routine 03/12/2025 6:06 PM EST NOVA GLUCOSE POC Routine 03/12/2025 6:01 PM EST CBC W/ AUTO DIFF STAT 03/12/2025 5:14 PM EST MAGNESIUM STAT 03/12/2025 5:14 PM EST COMPREHENSIVE METABOLIC PANEL STAT 03/12/2025 5:14 PM EST NOVA GLUCOSE POC Routine 03/12/2025 4:05 PM EST NOVA GLUCOSE POC Routine 03/12/2025 4:04 PM EST documented in this encounter Results * (ABNORMAL) Glucose, Nova Meter (03/12/2025 8:01 PM EST) POC-GLUCOSE 235(H) 70 - 110 mg/dL 03/13/2025 7:35 AM EST [facility] Comment:In the event of poor peripheral blood flow, venous or arterial blood should be used due to the potential of erroneous results. [employer] [id number] 03/13/2025 7:35 AM EST [facility] Blood WHOLE BLOOD / Unknown 03/12/2025 8:01 PM EST 03/13/2025 7:35 AM EST us Armen Dove DO POINT OF CARE TEST ORDERABLES Fi nal Result [facility] 1 [place], [place] [address] [phone] * (ABNORMAL) Urinalysis, Reflex Microscopic and Culture If Indicated (03/12/2025 7:35 PM EST) Color, UA Colorless 03/12/2025 8:30 PM EST [facility] Clarity, UA Clear Clear 03/12/2025 8:30 PM EST [facility] Specific Barton, UA 1.019 1.005 - 1.030 03/12/2025 8:30 PM [facility] pH, UA 6.0 6.0 - 8.0 03/12/2025 8:30 PM [facility] Leukocytes, UA Negative Negative 03/12/2025 8:30 PM [facility] Nitrite, UA Negative Negative 03/12/2025 8:30 PM EST [facility] Protein, UA Negative Negative 03/12/2025 8:30 PM EST [facility] Glucose, UA 4+(A) Normal 03/12/2025 8:30 PM [facility] Ketones, UA Negative Negative 03/12/2025 8:30 PM [facility] Bilirubin, UA Negative Negative 03/12/2025 8:30 PM [facility] Blood, UA Negative Negative 03/12/2025 8:30 PM EST [facility] Urobilinogen, UA Normal Normal 03/12/2025 8:30 PM EST [facility] Specimen Source Urine, Clean Catch 03/12/2025 8:30 PM EST [facility] Urine URINE SPECIMEN COLLECTION, CLEAN CATCH / Unknown 03/12/2025 7:35 PM EST 03/12/2025 7:54 PM EST us Trina Valdez APRN URINE ORDERABLES Final Result [facility] [address] [place] [address] * (ABNORMAL) CG8+ ONDINA POC (03/12/2025 6:06 PM EST) PH, ONDINA POC 7.35 7.31 - 7.41 03/12/2025 6:11 PM [facility] CG8+ PCO2, ONDINA-POC 43.6 41 - 51 mm/Hg 03/12/2025 6:11 PM [facility] CG8+ PO2, ONDINA-POC 36 30 - 55 mm/Hg 03/12/2025 6:11 PM [facility] CG8+ HCO3, ONDINA-POC 24.0 23.0 - 28.0 mmol/L 03/12/2025 6:11 PM [facility] CG8+ BASE EXCESS, ONDINA-POC -1.0 -2.0 - 3.0 mmol/L 03/12/2025 6:11 PM [facility] CG8+ SODIUM, ONDINA-POC 134(L) 138 - 146 mmol/L 03/12/2025 6:11 PM [facility] CG8+ POTASSIUM, ONDINA-POC 3.9 3.5 - 4.9 mmol/L 03/12/2025 6:11 PM [facility] CG8+ GLUCOSE, ONDINA-POC 511(HH) 70 - 105 mg/dL 03/12/2025 6:11 PM [facility] CG8+ O2 SAT., ONDINA- POC 67 40 - 85 % 03/12/2025 6:11 PM [facility] POC CO2 TOTAL OND[place] 26 24 - 29 mmol/L 03/12/2025 6:11 PM [facility] POC HEMATOCRIT O[place] 28(L) 38 - 51 %PCV 03/12/2025 6:11 PM [facility] POC HEMOGLOBIN [place] 9.5(L) 12.0 - 17.0 g/dL 03/12/2025 6:11 PM [facility] POC IONIZED CALCIUM [place] 1.00(L) 1.12 - 1.32 mmol/L 03/12/2025 6:11 PM [facility] [employer] [id number] 03/12/2025 6:11 PM EST [facility] Blood 03/12/2025 6:06 PM EST 03/12/2025 6:11 PM EST us Tiffani Lim MD POINT OF CARE TEST ORDERABLES Final Result Performing Organization Address [facility] Co de Phone Number [facility] [address] [place] [address], [facility] [phone] * (ABNORMAL) Glucose, Nova Meter (03/12/2025 6:01 PM EST) POC-GLUCOSE 485(HH) 70 - 110 mg/dL 03/12/2025 6:03 PM EST [facility] Comment:In the event of poor peripheral blood flow, venous or arterial blood should be used due to the potential of erroneous results. [employer] [phone] 03/12/2025 6:03 PM EST [facility] Blood WHOLE BLOOD / Unknown 03/12/2025 6:01 PM EST 03/12/2025 6:03 PM EST Narrative [facility] - 03/12/2025 6:03 PM EST Notified RN/MD us Tiffani Lim MD POINT OF CARE TEST ORDERABLES Final Result Performing Organization Address [facility] Co de Phone Number [facility] [address] [phone] * Magnesium (03/12/2025 5:14 PM EST) Pathologist [facility] Magnesium 2.0 1.6 - 2.6 mg/dL 03/12/2025 6:20 PM EST [facility] Blood Venipuncture / Unknown 03/12/2025 5:14 PM EST 03/12/2025 5:18 PM EST Narrative [facility] - 03/12/2025 6:20 PM EST Specimen slightly hemolyzed us Tiffani Lim MD LAB BLOOD ORDERABLES Final Res ult Performing Organization Address City/[facility]/ZIP Co de Phone Number [facility] [address] [place] [address] * (ABNORMAL) Comprehensive metabolic panel (03/12/2025 5:14 PM EST) Sodium 128(L) 136 - 145 meq/L 03/12/2025 6:20 PM [facility] Potassium 4.4 3.4 - 5.1 meq/L 03/12/2025 6:20 PM [facility] Chloride 93(L) 98 - 112 meq/L 03/12/2025 6:20 PM [facility] CO2 22 22 - 29 meq/L 03/12/2025 6:20 PM [facility] Calcium 8.8 8.4 - 10.2 mg/dL 03/12/2025 6:20 PM [facility] Glucose 650(HH) 82 - 115 mg/dL 03/12/2025 6:20 PM [facility] BUN 35.8(H) 9.8 - 20.1 mg/dL 03/12/2025 6:20 PM [facility] Creatinine 2.08(H) 0.50 - 1.20 mg/dL 03/12/2025 6:20 PM [facility] BUN/Creatinine 17 8 - 20 03/12/2025 6:20 PM [facility] eGFR (mL/min/1.73m2) 26(L) >=60 mL/min/1.7 3m2 03/12/2025 6:20 PM [facility] Comment:ESTIMATED GFR IS NOT ACCURATE CREATININE CLEARANCE IN PREDICTING GLOMERULAR FILTRATION RATE. ESTIMATED GFR IS NOT APPLICABLE FOR DIALYSIS PATIENTS. Albumin 3.9 3.5 - 5.0 g/dL 03/12/2025 6:20 PM [facility] Alkaline Phosphatase 115 40 - 150 U/L 03/12/2025 6:20 PM [facility] ALT 11 <55 U/L 03/12/2025 6:20 PM [facility] AST 22 5 - 34 U/L 03/12/2025 6:20 PM [facility] Total Bilirubin 0.3 0.3 - 1.2 mg/dL 03/12/2025 6:20 PM [facility] Protein, Total 7.6 6.4 - 8.3 g/dL 03/12/2025 6:20 PM [facility] Globulin 3.7 2.5 - 4.1 g/dL 03/12/2025 6:20 PM [facility] Anion Gap 17(H) 4 - 12 03/12/2025 6:20 PM [facility] A/G Ratio 1.1 0.7 - 1.9 03/12/2025 6:20 PM [facility] Osmolality Calc 296.0 mOsm/kg 6:20 PM [facility] Blood Venipuncture / Unknown 03/12/2025 5:14 PM EST 03/12/2025 5:18 PM [facility] - 03/12/2025 6:20 PM EST Specimen slightly hemolyzed us Tiffani Lim MD LAB BLOOD ORDERABLES Final Res ult Performing Organization Address City/State/[facility] Co de Phone Number [facility] [address] [place] [address] * (ABNORMAL) CBC with Auto Diff (03/12/2025 5:14 PM EST) WBC 6.8 4.0 - 10.0 K/ L 03/12/2025 5:20 PM [facility] RBC 3.31(L) 3.93 - 5.22 M/ L 03/12/2025 5:20 PM [facility] Hemoglobin 10.0(L) 11.2 - 15.7 GM/DL 03/12/2025 5:20 PM [facility] Hematocrit 29.5(L) 34.1 - 44.9 % 03/12/2025 5:20 PM [facility] MCV 89 79 - 95 fL 03/12/2025 5:20 PM [facility] MCH 30.2 25.6 - 32.2 pg 03/12/2025 5:20 PM [facility] MCHC 33.9 32.2 - 35.5 GM/DL 03/12/2025 5:20 PM [facility] RDW 12.2 11.7 - 14.4 % 03/12/2025 5:20 PM [facility] Platelets 223 140 - 375 K/CU MM 03/12/2025 5:20 PM [facility] MPV 10.4 9.4 - 12.3 fL 03/12/2025 5:20 PM [facility] % Neutros 77(H) 34 - 71 % 03/12/2025 5:20 PM [facility] % Lymphs 14(L) 19 - 52 % 03/12/2025 5:20 PM [facility] % Monos 6 5 - 13 % 03/12/2025 5:20 PM [facility] % Eos 2.1 1.0 - 6.0 % 03/12/2025 5:20 PM [facility] % Baso 1 0 - 1 % 03/12/2025 5:20 PM [facility] NRBC Absolute <0.01 0 - 0.012 K/ul 03/12/2025 5:20 PM [facility] # Neutros 5.22 1.56 - 6.13 K/ L 03/12/2025 5:20 PM [facility] # Lymphs 0.94(L) 1.18 - 3.74 K/ L 03/12/2025 5:20 PM [facility] # Monos 0.41 0.24 - 0.86 K/ L 03/12/2025 5:20 PM [facility] # Eos 0.14 0.04 - 0.36 K/ L 03/12/2025 5:20 PM [facility] # Baso 0.05 0.01 - 0.08 K/ L 03/12/2025 5:20 PM [facility] % Imm Grans 0.40 0.01 - 0.43 % 03/12/2025 5:20 PM [facility] # IG 0.03 0.00 - 0.03 K/uL 03/12/2025 5:20 PM [facility] Blood Venipuncture / Unknown 03/12/2025 5:14 PM EST 03/12/2025 5:18 PM EST Narrative [facility] - 03/12/2025 5:20 PM EST When CBC w/ Auto Diff [...] Flag noted Atypical Lymph flag noted us Tiffani Lim MD LAB BLOOD ORDERABLES Final Res ult Performing Organization Address [facility] Co de Phone Number [facility] [address] [phone] * (ABNORMAL) Glucose, Nova Meter (03/12/2025 4:05 PM EST) [facility] POC-GLUCOSE >600(HH) 70 - 110 mg/dL 03/13/2025 7:26 AM [facility] Comment:In the event of poor peripheral blood flow, venous or arterial blood should be used due to the potential of erroneous results. [employer] [phone] 03/13/2025 7:26 AM EST [facility] Blood WHOLE BLOOD / Unknown 03/12/2025 4:05 PM EST 03/13/2025 7:26 AM EST [facility] - 03/13/2025 7:26 AM EST Notified RN/MD us Not In System Provider DIRECTOR OF [employer] POINT OF CARE TEST O RDERABLES Final Result Performing Organization Address [facility] Co de Phone Number [facility] [address] [phone] * (ABNORMAL) Glucose, Nova Meter (03/12/2025 4:04 PM EST) [facility] POC-GLUCOSE 600(HH) 70 - 110 mg/dL 03/13/2025 7:26 AM EST [facility] Comment:In the event of poor peripheral blood flow, venous or arterial blood should be used due to the potential of erroneous results. [employer] [phone] 03/13/2025 7:26 AM EST [facility] Blood WHOLE BLOOD / Unknown 03/12/2025 4:04 PM EST 03/13/2025 7:26 AM EST Narrative [facility] - 03/13/2025 7:26 AM EST Notified RN/MD us Not In System Provider DIRECTOR OF RESTAURANT [employer]PERATIONS POINT OF CARE TEST O RDERABLES Final Result [facility] [address] [phone] documented in this encounter Visit Diagnoses Diagnosis Hyperglycemia- Primary Other abnormal glucose documented in this encounter Administered Medications Inactive Administered Medications - up to 3 most recent administrations Medication Order MAR Action Action Date Dose Rate Site insulin regular (HUMULIN R,NOVOLIN R) injection 10 Units Once, intravenous, On e 03/12/25 at 1815, For 1 dose, If blood sugar is less than 180 between 2821-8656, DO NOT give corrective insulin unless otherwise ordered. Given 03/12/2025 6:37 PM EST 10 Units Other sodium chloride 0.9% (NS) bolus 1,000 mL Once, intravenous, Administer over 60 Minutes, On Tue03/12/25 at 1610, For 1 dose New Bag 03/12/2025 4:19 PM EST 1,000 mLs 1000 mL/hr sodium chloride 0.9% (NS) bolus 1,000 mL Once, intravenous, Administer over 60 Minutes, On Tue03/12/25 at 1815, For 1 dose New Bag 03/12/2025 6:37 PM EST 1,000 mLs 1000 mL/hr sodium chloride flush 10 mL 10 mL As needed, intravenous, line care, Line care for flush, Starting on Tue03/12/25 at 1604, For 30 doses documented in this encounter Active and Recently Administered Medications Times are shown in EST. Scheduled Medication Order 03/10/2025 03/11/2025 03/12/2025 insulin regular (HUMULIN R,NOVOLIN R) injection (COMPLETED) 10 Units Once, intravenous, On 03/12/25 at 1815, For 1 dose, If blood sugar is less than 180 between 9508-6009, DO NOT give corrective insulin unless otherwise ordered. 183 (Given - Provid er: Kelin Ellis, GABRIEL) sodium chloride 0.9% (NS) bolus (COMPLETED) 1,000 mL Once, intravenous, Administer over 60 Minutes, On Tue03/12/25 at 1610, For 1 dose 1619 (New Bag - Prov ider: Kelin Ellis RN)1719 (Stopped - Provider: Kelin Ellis RN) sodium chloride 0.9% (NS) bolus (COMPLETED) 1,000 mL Once, intravenous, Administer over 60 Minutes, On Tue03/12/25 at 1815, For 1 dose 1837 (New Bag - Prov ider: Kelin Ellis RN)2015 (Stopped - Provider: Victor Manuel Woods RN) PRN Medication Order 03/10/2025 03/11/2025 03/12/2025 sodium chloride flush 10 mL 10 mL As needed, intravenous, line care, Line care for flush, Starting on Tue03/12/25 at 1604, For 30 doses documented in this encounter Care Teams Dirt Supervisor Relationship Specialty Start Date End Date Fred Solomon MD [address] [place] [id number] PCP - General Internal Medicine 03/12/25 documented as of this encounter
--- OUTSIDE RECORDS SUMMARY | 2025-03-12 23:59 | XMS_ITS | Encounter Summary ---
Author Organization [employer] ([place], [place], [place], [place], [place]) Address [address] [place] [address] Care Team Providers Care Manager Consumer Name Role Phone Fred Solomon MD Primary Care Provider + Encounter Details Date Type Department Care Team (Late st Contact Info) Description 03/12/2025 11:59 PM EST Anesthesia Event [facility] Operating Room [address] [place] [address] Tani Jeffers MD [address] [place] [address] Anesthesia Record Procedure Summary Procedure Name Responsible [...] on file documented as of this encounter OR Notes * Anesthesia Preprocedure Evaluation - Tani Jeffers MD - 03/12/2025 3:04 PM EST ANESTHESIA PREOPERATIVE EVALUATION Patient: Dilia Chester Date/Time: 03/13/25927 Procedure: (LEFT CAROTID ENDARTERECTOMY W/ EEG) Location: [facility] OR / [facility] OPERATING ROOM Surgeons: Eagle Quiles, DO Vitals: 03/12/25 1353 BP: (!) 140/47 Pulse: 71 Resp: 16 Temp: 98.2 ??F (36.8 ??C) SpO2: 96% Weight: 68 kg (150 lb) Height: 1.6 m (5' 3 ) Allergies Allergen Reactions Lidocaine Hives Latex Rash Current Outpatient Medications Medication Instructions albuterol 90 mcg/actuation inhaler inhalation, Every 6 hours PRN amLODIPine (NORVASC) 10 mg, oral, Every morning aspirin 81 mg, oral, Every evening atorvastatin (LIPITOR) 20 mg, oral, Every Night carvediloL (COREG) 12.5 mg, oral, 2 times daily with breakfast and dinner cetirizine (ZYRTEC) 10 mg, oral, Every morning DULoxetine (CYMBALTA) 30 mg, oral, Every morning empagliflozin-linagliptin (Glyxambi) 10-5 mg per tablet 1 tablet, oral, Every evening gabapentin (NEURONTIN) 100 mg, oral, 2 times daily magnesium aspart,citrate,oxide 400 mg magnesium cap oral, Every morning metoprolol tartrate (LOPRESSOR) 12.5 mg, oral, Every evening morphine sulfate (MORPHINE, BULK, MISC) miscellaneous, Receives Morphine through intrathecal pump. Pt does not know concentration or rate. mv-mn/folic acid/K1/genistein (CENTRUM MENOPAUSE MULTIVITAMIN ORAL) oral, Every morning ondansetron (ZOFRAN) 4 mg, oral, Every 6 hours PRN pantoprazole (PROTONIX) 40 mg, oral, Every morning rOPINIRole (REQUIP) 1 mg, oral, Every evening rOPINIRole (REQUIP) 0.5 mg, oral, Every morning umeclidinium-vilanteroL (Anoro Ellipta) 62.5-25 mcg/actuation dsdv inhalation, Every evening INPATIENT MEDICATIONS Problem List as of 03/12/2025 PVD SMOKER COPD S/p right cea Cad Stress test 02/2023 - reversible ischemia inferior, inferoapical lv wall 04/2023 heart cath- Lcx 40-50% Rca-40-50% ef 65% Past Surgical History: Procedure Laterality Date APPENDECTOMY CAROTID ENDARTERECTOMY Right CARPAL TUNNEL RELEASE Right CHOLECYSTECTOMY DILATION AND CURETTAGE, DIAGNOSTIC / THERAPEUTIC EYE SURGERY Bilateral Cataract HYSTERECTOMY Intrathecal Pain Pump STENT PLACEMENT X3, 2 STOMACH- 1 ANKLE TONSILLECTOMY Social History Tobacco Use Smoking status: Former Current packs/day: 0.00 Types: Cigarettes Quit date: 2018 Years since quittin.9 Smokeless tobacco: Current Tobacco comments: Quit on 2019, Vapes daily Vaping Use Vaping status: Every Day Substances: Nicotine Substance Use Topics Alcohol use: Not Currently Drug use: Never Echo Results (last 7 days) 09/2024 ef 60% Mild to moderate AI, mild tr Chemistry No results found for: NA , K , CL , CO2 , BUN , CREATININE , GLU No results found for: CALCIUM , ALKPHOS , AST , ALT , BILITOT Lab Results Component Value Date WBC 6.4 03/12/2025 HGB 10.0 (L) 03/12/2025 HCT 29.6 (L) 03/12/2025 MCV 89 03/12/2025 PLT 210 03/12/2025 Clinical information reviewed: No data recorded Physical Exam Airway Mallampati: III TM distance: >3 FB Neck ROM: full Cardiovascular (+) murmur Dental (+) lower dentures, upper dentures Pulmonary - normal exam Neurological Abdominal Anesthesia Plan ASA 4 general Patient will be monitored via standard ASA monitoring.(Delta RSI - patient had jardiance today Patient has intrathecal pain pump- no idea of director mobile media solutions. PAT is contacting reps to address plan for surgery) Anesthetic plan and risks discussed with patient. 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
--- OUTSIDE RECORDS SUMMARY | 2025-03-13 06:10 | XMS_ITS | Encounter Summary ---
Author Organization [employer] ([place], [place], [place], [place], [place]) Address [address] [place] [address] Care Team Providers [employer] Name Role Phone Fred Solomon MD Primary Care Provider + Reason for Visit * Auth/Cert (Routine) Specialty Diagnoses / Procedures Referred By Contac t Referred To Contact Diagnoses Medical history unknown UNKNOWN Procedures SD TEAEC W/PATCH GRF CAROTID VERTB SUBCLAV NECK INC ENDARTERECTOMY, CAROTID [facility] Operating Room [address] [place] [address] Phone: tel: fax: [facility] Operating Room [address] [place] [address] Phone: tel: fax: Referral ID Status Reason Start Date Expiration Date Visits Re quested Visits Authorized [id number] 1 1 Encounter Details Date Type Department Care Team (Latest Contact Info) Description 03/13/2025 6:10 AM EST - 03/16/2025 2:38 PM EST Hospital Encounter [facility] Cardiothoracic Vascular Unit [address] [place] [address] Eagle Quiles DO [address] [facility] [place] [address] [place] [address] Respiratory insufficiency (Primary Dx); Medical history unknown Discharge Disposition: Home or Self Care Social [...] Sign Reading Time Taken Comments Blood Pressure 140/60 03/16/2025 2:05 PM EST Pulse 93 03/16/2025 2:20 PM EST Temperature 37.1 C (98.7 F) 03/16/2025 8:05 AM EST Respiratory Rate 28 03/16/2025 2:20 PM EST Oxygen Saturation 92% 03/16/2025 2:20 PM EST Inhaled Oxygen Concentration 60% 03/13/2025 8 :17 PM EST Weight 73 kg (161 lb) 03/13/2025 7:35 AM EST Height 160 cm (5' 3 ) 03/13/2025 7:35 AM EST Body Mass Index 28.52 03/13/2025 7:35 AM EST documented in this encounter Discharge Summaries * Jonathon Guhtrie MD - 03/14/2025 10:45 AM EST Images from the original note were not included. Patient Name: Dilia Chester : 1960 Date of Admission: 03/13/2025 Date of Discharge: 03/16/2025 Primary Care Physician: Fred Solomon MD Consultations: Pulmonary-critical care Discharge Diagnoses: More than 50 percent stenosis of left internal carotid artery Reason for Admission: Left internal carotid artery stenosis Hospital Course: The patient underwent left carotid endarterectomy on 03/13/2025 postoperatively she was evaluated and monitored in the intensive care unit as routine postoperative course. She did have severe hypertension but when she was restarted on her home blood pressure medication this abated. This morning sheis comfortable she has no new complaints her blood pressure is well-maintained. Additionally, she was noted to have low oxygen saturations and upon further review, she has been seen by Dr. Miller asrecent as January and has been noted to have resting saturations in the low 90s. On day of discharge, she is stable for discharge home. Studies Performed: None Procedures Performed: Left carotid endarterectomy Discharge Medications: Your medication list START taking these medications Instructions Comments Quantity Refills oxyCODONE 5 MG immediate release tablet Commonly known as: ROXICODONE Take 1 tablet (5 mg total) by mouth every 6 (six) hours as needed for up to 10 days Look-alike/Sound-alike medication. Max Daily Amount: 20 mg 40 tablet 0 CONTINUE taking these medications Instructions Comments Quantity Refills albuterol 90 mcg/actuation inhaler Inhale by mouth every 6 (six) hours as needed for wheezing. 0 amLODIPine 10 MG tablet Commonly known as: NORVASC Take 1 tablet (10 mg total) by mouth in the morning. 0 Anoro Ellipta 62.5-25 mcg/actuation Dsdv Generic drug: umeclidinium-vilanteroL Inhale by mouth every evening. 0 aspirin 81 MG EC tablet Take 1 tablet (81 mg total) by mouth every evening. 0 atorvastatin 20 MG tablet Commonly known as: LIPITOR Take 1 tablet (20 mg total) by mouth nightly. 0 carvediloL 12.5 MG tablet Commonly known as: COREG Take 1 tablet (12.5 mg total) by mouth 2 (two) times daily with breakfast and dinner. 0 CENTRUM MENOPAUSE MULTIVITAMIN ORAL Take by mouth in the morning. 0 cetirizine 10 MG tablet Commonly known as: ZyrTEC Take 1 tablet (10 mg total) by mouth in the morning. 0 DULoxetine 30 MG capsule Commonly known as: CYMBALTA Take 1 capsule (30 mg total) by mouth in the morning. 0 gabapentin 100 MG capsule Commonly known as: NEURONTIN Take 1 capsule (100 mg total) by mouth 2 (two) times daily. 0 Glyxambi 10-5 mg per tablet Generic drug: empagliflozin-linagliptin Take 1 tablet by mouth every evening. 0 magnesium aspart,citrate,oxide 400 mg magnesium Cap Take by mouth in the morning. 0 metoprolol tartrate 25 MG tablet Commonly known as: LOPRESSOR Take 0.5 tablets (12.5 mg total) by mouth every evening. 0 MORPHINE (BULK) MISC Receives Morphine through intrathecal pump. Pt does not know concentration or rate.. 0 ondansetron 4 MG tablet Commonly known as: ZOFRAN Take 1 tablet (4 mg total) by mouth every 6 (six) hours as needed for nausea or vomiting. 0 pantoprazole 40 MG tablet Commonly known as: PROTONIX Take 1 tablet (40 mg total) by mouth in the morning. 0 * rOPINIRole 1 MG tablet Commonly known as: REQUIP Take 1 tablet (1 mg total) by mouth every evening. 0 * rOPINIRole 0.5 MG tablet Commonly known as: REQUIP Take 1 tablet (0.5 mg total) by mouth in the morning. 0 * This list has 2 medication(s) that are the same as other medications prescribed for you. Read thedirections carefully, and ask your doctor or other care provider to review them with you. Where to Get Your Medications These medications were sent to [facility] [address] [place] [id number] oxyCODONE 5 MG immediate release tablet Physical Exam Vitals reviewed. Patient Flow Coordinator present: at bedside. Constitutional: General: She is not in acute distress. Appearance: Normal appearance. She is normal weight. She is not ill-appearing, toxic-appearing or diaphoretic. HENT: Head: Normocephalic and atraumatic. Nose: Nose normal. Mouth/Throat: Mouth: Mucous membranes are moist. Pharynx: Oropharynx is clear. Eyes: Extraocular Movements: Extraocular movements intact. Conjunctiva/sclera: Conjunctivae normal. Pupils: Pupils are equal, round, and reactive to light. Neck: Comments: LEFT neck bruising Cardiovascular: Rate and Rhythm: Normal rate and regular rhythm. Pulmonary: Effort: Pulmonary effort is normal. No respiratory distress. Abdominal: General: Abdomen is flat. Palpations: Abdomen is soft. Musculoskeletal: Cervical back: Neck supple. No tenderness. Skin: General: Skin is warm and dry. Capillary Refill: Capillary refill takes less than 2 seconds. Neurological: General: No focal deficit present. Mental Status: She is alert and oriented to person, place, and time. Psychiatric: Mood and Affect: Mood normal. Behavior: Behavior normal. Discharge Instructions Discharge Diet: As tolerated Discharge Activity: As tolerated Discharge Follow UP: Contact information for follow-up Eagle Quiles DO Specialty: Surgery, Vascular Surgery, General Surgery [address] [place], [place] [id number] Next Steps: Follow up Instructions: Call [phone] to arrange 1 month follow-up with LEFT carotid duplex Minda Miller MD Specialty: Pulmonary Disease [address] [place] [address] [place] [address] Next Steps: Follow up in 2 week(s) Electronically signed by Jonathon Guhtrie MD, 03/16/25, 9:49 AM EST CUTTER CUTTER CUTTER CUTTER documented in this encounter Discharge Instructions * Discharge Instructions* Jonathon Guthrie MD - 03/16/2025 9:46 AM EST No heavy lifting >10lbs x2 weeks OK to shower No submerging incision under water by bathing or swimming x2 weeks Arrange to see laboratory apparatus glass blower in 2 weesk CUTTER documented in this encounter Medications at Time [...] mcg/actuation dsdv Inhale by mouth every evening. oxyCODONE (ROXICODONE) 5 MG immediate release tablet Take 1 tablet (5 mg total) by mouth every 6 (six) hours as needed for up to 10 days Look-alike/Sound -alike medication. Max Daily Amount: 20 mg 40 tablet 03/16/2025 03/26/20 25 documented as of this encounter Progress Notes * Yenifer Farr RN - 03/16/2025 10:23 AM EST Discharge Plan Progress Note Per nurseJael pt will be going home on [facility] tx's per Dr Guthrie. .Patient/family provided with [facility] approved choice list and Patient choice letter along with [employer] link to access Medicare.gov Care Compare website to review potential post-acute providers. Choice provided to patient/family, and patient preferences received and referral(s) submitted to requested providers. Referral(s) submitted to: Referral to [facility] for home o2 and nebulizer. Aw acceptance and delivery. Linda with [employer] notified and aware. Franco with [employer] is working on case. Accepted and booked. Waiting on delivery. Per nurse, Lilia, o2 delivered. Yenifer Farr RN CUTTER CUTTER CUTTER CUTTER CUTTER * Silvia Barry MD - 03/16/2025 10:09 AM EST PULMONARY AND CRITICAL CARE Consult Note Date of Service: 03/16/2025 Time: 12:41 PM HPI: This is a 65 y.o. year old female with past medical history CKD, hypertension, chronic mesenteric ischemia, renal artery stenosis, and coronary artery stenosis, who presented on 03/13 for an electiveleft carotid endarterectomy with EEG with Dr. Quiles. Per chart review, patient has had multiple episodes of syncope/blackouts that started approximately6 months ago. Her symptoms were getting attributed to anemia, as she was requiring multiple transfusions. She was also experiencing intermittent mental status changes. Initial CT head/brain back in September 2024 was found to be normal, however a follow-up CT head wo contrast on 10/17 revealed a possibility of early and/or small acute/subacute ischemic infarct. On 02/22 patient had a CTA neck that showed heavily calcified plaque at the left carotid bifurcationwith 50 to 60% diameter stenosis. During the pre-operative work up on 03/12 her blood glucose levelwas noted to be in the 600s. She was seen at the ER, treated with regular insulin and discharged home. Additional blood work was notable for hemoglobin 10.0, hematocrit 29.5, sodium 128, anion gap 17, BUN 35.8, creatinine 2.08, eGFR 26, Today she underwent planned procedure and returned to CTVU post-operatively. Pulmonary team was consulted for critical care management. Patient was seen and examined at bedside this afternoon. She still moderately drowsy after anesthesia, follows commands intermittently. She is not able to fully par ticipate in review of systems, or provide any meaningful history. She is on 6L via simple mask, satting 94-96%. Appears to be in the mild respiratory distress. She is hemodynamically stable, but requiring Cardene infusion to keep her systolic blood pressure under 160 mmHg. No carotid bruits auscultated. Trace edema noted in bilateral upper and lower extremities. No family at bedside during the exam. Per chart review patient is a former cigarette smoker, she quit 6 years ago, however she still vapes daily. Daily progress notes: 03/14: Patient was seen and examined today. During rounds patient was awake, alert, oriented. Denied any complaints. Vitals reviewed, currently patient on 8 L oxygen to maintain sat above 88% mild tachypnea noted, but no tachycardia. Labs reviewed white cell count within normal, creatinine 1.49. 03/15: Patient was seen and examined today. During rounds patient was awake, alert, oriented. Denies any complaints. Vitals reviewed, patient still on high flow nasal cannula 5 L, with some episodes of hypoxia down to 87, mild tachypnea noted, but no tachycardia. Labs reviewed, white cell count normal. Patient on insulin drip, discussed with the nurse and will switch patient to sliding scale. Patient can be transferred to the floor. 03/16: Patient was seen and examined today. During rounds patient was awake, alert, oriented. Denied any complaints. Vitals reviewed, currently on 2-4 L oxygen, satting 93%, mild tachypnea noted, butno tachycardia. Labs reviewed white cell count within normal, creatinine 1.47. Patient follows up with laboratory apparatus glass blower and she is on Anoro as well as rescue inhaler at home PAST MEDICAL HISTORY: Past Medical History: Diagnosis Date Anemia Asthma Blood transfusion without reported diagnosis 10/2024 Carotid artery stenosis Chronic kidney disease, stage 2 (mild) Chronic pain COPD (chronic obstructive pulmonary disease) (HCC) Coronary artery disease Diabetes mellitus (HCC) Fibromyalgia GERD (gastroesophageal reflux disease) Hyperlipidemia Hypertension Mitral valve prolapse Neuropathy Restless legs Seasonal allergies Wears dentures only wears top plate PAST SURGICAL HISTORY: Past Surgical History: Procedure Laterality Date APPENDECTOMY CAROTID ENDARTERECTOMY Right CARPAL TUNNEL RELEASE Right CHOLECYSTECTOMY DILATION AND CURETTAGE, DIAGNOSTIC / THERAPEUTIC ENDARTERECTOMY,CAROTID Left 03/13/2025 Procedure: ENDARTERECTOMY, CAROTID; Surgeon: Eagle Quiles DO; Location: [facility]; Service: Vascular Surgery; Laterality: Left; EEG [id number] EYE SURGERY Bilateral Cataract HYSTERECTOMY Intrathecal Pain Pump STENT PLACEMENT X3, 2 STOMACH- 1 ANKLE TONSILLECTOMY Allergies: Allergies Allergen Reactions Lidocaine Hives Latex Rash SOCIAL HISTORY: Social History Tobacco Use Smoking status: Former Current packs/day: 0.00 Types: Cigarettes Quit date: 2019 Years since quittin.9 Smokeless tobacco: Current Tobacco comments: Quit on 2019, Vapes daily Vaping Use Vaping status: Every Day Substances: Nicotine Substance Use Topics Alcohol use: Not Currently Drug use: Never FAMILY HISTORY: family history is not on file. Review of Systems Unable to perform ROS: Mental acuity Vital Signs Temp: [98.3 ??F (36.8 ??C)-98.7 ??F (37.1 ??C)] 98.7 ??F (37.1 ??C) Pulse: [83-109] 96 Resp: [14-48] 35 BP: (86-168)/(50-81) 162/70 Arterial Line BP 1: (132-197)/(37-72) 153/53 Current: Temp: 98.7 ??F (37.1 ??C) Pulse: 96 Resp: (!) 35 BP: (!) 162/70 SpO2: 93 % 24 Hour: BP Min: 86/51 Max: 168/70 Temp Min: 98.3 ??F (36.8 ??C) Max: 98.7 ??F (37.1 ??C) Pulse Min: 83 Max: 109 Resp Min: 14 Max: 48 SpO2 Min: 85 % Max: 99 % Intake/Output: I/O last 3 completed shifts: In: 113.7 [I.V.:113.7] Out: - Physical Exam Constitutional: Appearance: She is well-developed. She is ill-appearing. Interventions: Face mask in place. HENT: Head: Normocephalic. Nose: Nose normal. Mouth/Throat: Pharynx: Oropharynx is clear. Eyes: Pupils: Pupils are equal, round, and reactive to light. Cardiovascular: Rate and Rhythm: Normal rate and regular rhythm. Pulses: Normal pulses. Heart sounds: Normal heart sounds. No murmur heard. Pulmonary: Effort: Respiratory distress present. Breath sounds: No wheezing or rhonchi. Abdominal: General: Bowel sounds are decreased. There is distension. Tenderness: There is no abdominal tenderness. Musculoskeletal: Cervical back: Normal range of motion. Right lower leg: Edema present. Left lower leg: Edema present. Skin: General: Skin is dry. Capillary Refill: Capillary refill takes less than 2 seconds. Coloration: Skin is pale. Comments: S/p left endarterectomy. Site is well-approximated. Neurological: Mental Status: She is lethargic. GCS: GCS eye subscore is 2. GCS verbal subscore is 3. GCS motor subscore is 6. Psychiatric: Comments: JOHN, drowsy Vent / O2 Management: LABS Results for orders placed or performed during the hospital encounter of 03/13/25 (from the past 24 hours) Glucose, Nova Meter Status: Abnormal Collection Time: 03/15/25 12:45 PM Result Value Ref Range POC-GLUCOSE 197 (H) 70 - 110 mg/dL Logistics Management Specialist [id number] Glucose, Nova Meter Status: Abnormal Collection Time: 03/15/25 3:36 PM Result Value Ref Range POC-GLUCOSE 225 (H) 70 - 110 mg/dL Logistics Management Specialist [id number] Glucose, Nova Meter Status: Abnormal Collection Time: 03/15/25 8:58 PM Result Value Ref Range POC-GLUCOSE 183 (H) 70 - 110 mg/dL Logistics Management Specialist [id number] Glucose, Nova Meter Status: Abnormal Collection Time: 03/16/25 7:35 AM Result Value Ref Range POC-GLUCOSE 160 (H) 70 - 110 mg/dL Logistics Management Specialist [id number] Comprehensive metabolic panel Status: Abnormal Collection Time: 03/16/25 7:36 AM Result Value Ref Range Sodium 139 136 - 145 meq/L Potassium 3.7 3.4 - 5.1 meq/L Chloride 104 98 - 112 meq/L CO2 24 22 - 29 meq/L Calcium 8.9 8.4 - 10.2 mg/dL Glucose 174 (H) 82 - 115 mg/dL BUN 31.0 (H) 9.8 - 20.1 mg/dL Creatinine 1.47 (H) 0.50 - 1.20 mg/dL BUN/Creatinine 21 (H) 8 - 20 eGFR (mL/min/1.73m2) 40 (L) >=60 mL/min/1.73m2 Albumin 3.1 (L) 3.5 - 5.0 g/dL Alkaline Phosphatase 85 40 - 150 U/L ALT 12 <55 U/L AST 34 5 - 34 U/L Total Bilirubin 0.4 0.3 - 1.2 mg/dL Protein, Total 6.6 6.4 - 8.3 g/dL Globulin 3.5 2.5 - 4.1 g/dL Anion Gap 15 (H) 4 - 12 A/G Ratio 0.9 0.7 - 1.9 Osmolality Calc 288.3 mOsm/kg CBC with Automated Diff Status: Abnormal Collection Time: 03/16/25 7:36 AM Result Value Ref Range WBC 8.1 4.0 - 10.0 K/??L RBC 2.79 (L) 3.93 - 5.22 M/??L Hemoglobin 8.2 (L) 11.2 - 15.7 GM/DL Hematocrit 24.9 (L) 34.1 - 44.9 % MCV 89 79 - 95 fL MCH 29.4 25.6 - 32.2 pg MCHC 32.9 32.2 - 35.5 GM/DL RDW 13.2 11.7 - 14.4 % Platelets 187 140 - 375 K/CU MM MPV 9.3 (L) 9.4 - 12.3 fL % Neutros 77 (H) 34 - 71 % % Lymphs 11 (L) 19 - 52 % % Monos 9 5 - 13 % % Eos 2.6 1.0 - 6.0 % % Baso 0 0 - 1 % NRBC Absolute <0.01 0 - 0.012 K/ul # Neutros 6.23 (H) 1.56 - 6.13 K/??L # Lymphs 0.87 (L) 1.18 - 3.74 K/??L # Monos 0.74 0.24 - 0.86 K/??L # Eos 0.21 0.04 - 0.36 K/??L # Baso <0.03 0.01 - 0.08 K/ L % Imm Grans 0.50 (H) 0.01 - 0.43 % # IG 0.04 (H) 0.00 - 0.03 K/uL Radiology CTA neck 02/22: FINDINGS: Aortic arch: Arch shows no significant [...] No evidence of significant vertebral artery stenosis. Microbiology: Microbiology Results (last 7 days) No results found for the last 168 hours. ASSESSMENT: Pulmonary: Respiratory insufficiently in setting of post anesthesia Requiring supplemental oxygen 8L simple algebraist cigarette smoker. Quit 6 years ago Vapes daily Neuro: S/p left endarterectomy with Dr. Quiles on 03/13 History of multiple syncopal episodes/blackouts in the past 6 months Right carotid endarterectomy in 2019 Drowsy Heme/Onc: Symptomatic anemia requiring transfusions in the past Cardiovascular: S/p left endarterectomy with Dr. Quiles on 03/13 History of hypertension Chronic mesenteric ischemia Renal artery stenosis ID: No s/s of infection Renal: CKD Pseudohyponatremia Endo: Hyperglycemia PLAN: Maintain sat >88%, currently pt on high flow nasal cannula 2/4 ABG noted. Last chest x-ray reviewed independently, showed mild left lower lobe atelectasis Xopenex and ipratropium Sedation: None Hemodynamics: Off Cardene. Resumed on home oral antihypertensive, amlodipine, carvedilol and metoprolol. A-fib RVR: Off Cardizem drip IV fluid: Off Antimicrobial therapy: None. Monitor white count and temperature curve. Monitor renal functions and electrolytes. Replace electrolytes to maintain serum potassium of 4.0 and serum magnesium of 2.0 with appropriatereplacement per protocol. Monitor I's and O's strictly. Monitor LFTs. Monitor H&H closely. And transfuse for hemoglobin of less than 7 g. Monitor white count and platelets. Nutrition: Oral diet. Glycemic control to maintain blood sugars between 140-180. On insulin drip, will switch to sliding scale Bowel regimen: Docusate and senna as needed for constipation. GI prophylaxis: Protonix. DVT prophylaxis: Defer to vascular team. CODE STATUS: Full code Prognosis: Fair High risk of further decline. Patient follows up with laboratory apparatus glass blower and she is on Anoro as well as rescue inhaler at home. Recommend follow-up with her laboratory apparatus glass blower in 2 to [address] after [address] I Dr.Al Car, have personally evaluated the patient and performed a [id number] diagnostic evaluation on this patient; I have Obtained history, performed physical examination, reviewed laboratory studies. I have independently interpreted chest images. I have actively directed the medical care, formulated diagnosis, and the plan of care. Patient requires a high complexity of decision making for assessment. Voice employee relations assistant technology ([employer]) is used for dictation of this note and sound-alike words might be erroneously placed despite reviewing the note for accuracy. Errors in dictation may reflect use of voice recognition software and not all errors in employee relations assistant may have been detected prior to signing. CUTTER * Yenifer Farr RN - 03/16/2025 10:03 AM EST Discharge Plan Progress Note Home o2 eval done. Meets criteria for home o2. Cm spoke to patient. Has no preference for [employer] company. Asking about a nebulizer for home. Cm sent chat to Dr Guthrie and Dr Silvia Barry to see if will need nebulizer. Aw response. Cm to arrange home o2. Pt has transport home. No other needs noted. Yenifer Farr RN CUTTER * Jonathon Guthrie MD - 03/16/2025 9:37 AM EST Subjective Wants to go home. Blood sugars better this morning after restarting [employer]iance Review of Systems All other systems reviewed and are negative. Objective Last Recorded Vitals Blood pressure (!) 159/69, pulse 90, temperature 98.5 ??F (36.9 ??C), temperature source Oral, resp. rate 20, height 1.6 m (5' 3 ), weight 73 kg (161 lb), SpO2 93%. Physical Exam Vitals reviewed. Patient Flow Coordinator present: at bedside. Constitutional: General: She is not in acute distress. Appearance: Normal appearance. She is normal weight. She is not ill-appearing, toxic-appearing or diaphoretic. HENT: Head: Normocephalic and atraumatic. Nose: Nose normal. Mouth/Throat: Mouth: Mucous membranes are moist. Pharynx: Oropharynx is clear. Eyes: Extraocular Movements: Extraocular movements intact. Conjunctiva/sclera: Conjunctivae normal. Pupils: Pupils are equal, round, and reactive to light. Neck: Comments: LEFT neck bruising Cardiovascular: Rate and Rhythm: Normal rate and regular rhythm. Pulmonary: Effort: Pulmonary effort is normal. No respiratory distress. Abdominal: General: Abdomen is flat. Palpations: Abdomen is soft. Musculoskeletal: Cervical back: Neck supple. No tenderness. Skin: General: Skin is warm and dry. Capillary Refill: Capillary refill takes less than 2 seconds. Neurological: General: No focal deficit present. Mental Status: She is alert and oriented to person, place, and time. Psychiatric: Mood and Affect: Mood normal. Behavior: Behavior normal. Discussion: Pt has been previously seen by Dr. Miller for COPD/emphysema with known O2 sats in thelow 90s at baseline and was last seen in January. Interestingly, the RIGHT brachial pressure islower than then LEFT brachial pressure. SBP by cuff has consistently been controlled, but a-line isat least 50 pts higher throughout ICU course. Assessment LICA stenosis s/p CEA 03/13/25 Hypertension - SBP 160s Hypoxia - O2 sats low 90s, Hyperglycemia - improved after restarting home meds Plan - D/C home - eRx oxy 5 q6 #40/0 - F/U [address] Qiules with carotid duplex - F/U laboratory apparatus glass blower in 2 weeks CUTTER CUTTER * Forrest Albright RRT - 03/15/2025 4:22 PM EST Home Oxygen Qualification Testing Pulse Oximeter on Room Air at Rest: 87 % If SpO2 is <=88% STOP, meets qualification. If SpO2 is >88%, continue with ambulating pulse oximeter if appropriate. Room Air Ambulating Pulse Oximeter Reading: % If SpO2 is >88% STOP, does not meet qualifications unless additional disease criteria is met. If SpO2 is <=88%, during ambulation continue testing. Apply oxygen and ambulate. Ambulating Oxygen Flow Rate: Liter/Minute. Ambulating Pulse Oximeter Reading: %. Additional Comments: Patient qualifies for home 02. Patient placed on nasal cannula at 5 lpm 02 with patient sa02 reaching 93% CUTTER * Vickie Jameson RN - 03/15/2025 3:21 PM EST 03/15/25 1520 Home Environment Type of Residence Private residence Living Arrangements Spouse/significant other Support Systems Spouse/significant other Accessibilty Issues None Prior/Regular Transportation Self;Family Needs Assistance with Transportation No ADL Assessment Assistive Devices Wheelchair;Walker Transition Needs Home or Post Acute Services Home/self care Type of Home/Self Senior Care with family care Does the patient have the ability to fill and receive their discharge medications? Yes Discharge Barriers (medical readiness) Type of Assistive Devices Needed for Discharge Oxygen Patient Discharge Goal Home Mandated Reporting Not applicable Anticipated dc on Tuesday03/16/25. Home oxygen eval order is in and will arrange dependent upon results. CUTTER * Jonathon Guthrie MD - 03/15/2025 3:06 PM EST Subjective Pain /. Walked around nurses station without issue. Oxygen saturations upper 80s-low 90s withoutdyspnea. Review of Systems All other systems reviewed and are negative. Objective Last Recorded Vitals Blood pressure 114/54, pulse 86, temperature 98.4 ??F (36.9 ??C), temperature source Oral, resp. rate 23, height 1.6 m (5' 3 ), weight 73 kg (161 lb), SpO2 97%. Physical Exam Vitals reviewed. Patient Flow Coordinator present: at bedside. Constitutional: General: She is not in acute distress. Appearance: Normal appearance. She is normal weight. She is not ill-appearing, toxic-appearing or diaphoretic. HENT: Head: Normocephalic and atraumatic. Nose: Nose normal. Mouth/Throat: Mouth: Mucous membranes are moist. Pharynx: Oropharynx is clear. Eyes: Extraocular Movements: Extraocular movements intact. Conjunctiva/sclera: Conjunctivae normal. Pupils: Pupils are equal, round, and reactive to light. Neck: Comments: LEFT neck bruising Cardiovascular: Rate and Rhythm: Normal rate and regular rhythm. Pulmonary: Effort: Pulmonary effort is normal. No respiratory distress. Abdominal: General: Abdomen is flat. Palpations: Abdomen is soft. Musculoskeletal: Cervical back: Neck supple. No tenderness. Skin: General: Skin is warm and dry. Capillary Refill: Capillary refill takes less than 2 seconds. Neurological: General: No focal deficit present. Mental Status: She is alert and oriented to person, place, and time. Psychiatric: Mood and Affect: Mood normal. Behavior: Behavior normal. Labs: Results for orders placed or performed during the hospital encounter of 03/13/25 (from the past 24 hours) Glucose, Nova Meter Status: Abnormal Collection Time: 03/14/25 4:09 PM Result Value Ref Range POC-GLUCOSE 462 (HH) 70 - 110 mg/dL Logistics Management Specialist [id number] Glucose, Nova Meter Status: Abnormal Collection Time: 03/14/25 4:12 PM Result Value Ref Range POC-GLUCOSE 498 (HH) 70 - 110 mg/dL Logistics Management Specialist [id number] Glucose, Nova Meter Status: Abnormal Collection Time: 03/14/25 5:13 PM Result Value Ref Range POC-GLUCOSE 496 (HH) 70 - 110 mg/dL Logistics Management Specialist [id number] Glucose, Nova Meter Status: Abnormal Collection Time: 03/14/25 6:13 PM Result Value Ref Range POC-GLUCOSE 458 (HH) 70 - 110 mg/dL Logistics Management Specialist [id number] Glucose, Nova Meter Status: Abnormal Collection Time: 03/14/25 6:59 PM Result Value Ref Range POC-GLUCOSE 403 (H) 70 - 110 mg/dL Logistics Management Specialist [id number] Glucose, Nova Meter Status: Abnormal Collection Time: 03/14/25 8:05 PM Result Value Ref Range POC-GLUCOSE 364 (H) 70 - 110 mg/dL Logistics Management Specialist [id number] Glucose, Nova Meter Status: Abnormal Collection Time: 03/14/25 9:02 PM Result Value Ref Range POC-GLUCOSE 262 (H) 70 - 110 mg/dL Logistics Management Specialist [id number] Glucose, Nova Meter Status: Abnormal Collection Time: 03/14/25 10:13 PM Result Value Ref Range POC-GLUCOSE 189 (H) 70 - 110 mg/dL Logistics Management Specialist [id number] Glucose, Nova Meter Status: Abnormal Collection Time: 03/14/25 11:03 PM Result Value Ref Range POC-GLUCOSE 141 (H) 70 - 110 mg/dL Logistics Management Specialist [id number] Glucose, Nova Meter Status: Abnormal Collection Time: 03/15/25 12:03 AM Result Value Ref Range POC-GLUCOSE 169 (H) 70 - 110 mg/dL Logistics Management Specialist [id number] Glucose, Nova Meter Status: Abnormal Collection Time: 03/15/25 1:04 AM Result Value Ref Range POC-GLUCOSE 137 (H) 70 - 110 mg/dL Logistics Management Specialist [id number] Glucose, Nova Meter Status: Abnormal Collection Time: 03/15/25 2:04 AM Result Value Ref Range POC-GLUCOSE 179 (H) 70 - 110 mg/dL Logistics Management Specialist [id number] Glucose, Nova Meter Status: Abnormal Collection Time: 03/15/25 2:54 AM Result Value Ref Range POC-GLUCOSE 235 (H) 70 - 110 mg/dL Logistics Management Specialist [id number] Glucose, Nova Meter Status: Abnormal Collection Time: 03/15/25 4:03 AM Result Value Ref Range POC-GLUCOSE 210 (H) 70 - 110 mg/dL Logistics Management Specialist [id number] Glucose, Nova Meter Status: Abnormal Collection Time: 03/15/25 5:00 AM Result Value Ref Range POC-GLUCOSE 161 (H) 70 - 110 mg/dL Logistics Management Specialist [id number] Glucose, Nova Meter Status: Abnormal Collection Time: 03/15/25 6:07 AM Result Value Ref Range POC-GLUCOSE 124 (H) 70 - 110 mg/dL Logistics Management Specialist [id number] Glucose, Nova Meter Status: Abnormal Collection Time: 03/15/25 7:00 AM Result Value Ref Range POC-GLUCOSE 114 (H) 70 - 110 mg/dL Logistics Management Specialist [id number] Comprehensive metabolic panel Status: Abnormal Collection Time: 03/15/25 8:03 AM Result Value Ref Range Sodium 141 136 - 145 meq/L Potassium 3.8 3.4 - 5.1 meq/L Chloride 107 98 - 112 meq/L CO2 23 22 - 29 meq/L Calcium 8.9 8.4 - 10.2 mg/dL Glucose 144 (H) 82 - 115 mg/dL BUN 38.0 (H) 9.8 - 20.1 mg/dL Creatinine 1.51 (H) 0.50 - 1.20 mg/dL BUN/Creatinine 25 (H) 8 - 20 eGFR (mL/min/1.73m2) 38 (L) >=60 mL/min/1.73m2 Albumin 3.4 (L) 3.5 - 5.0 g/dL Alkaline Phosphatase 96 40 - 150 U/L ALT 14 <55 U/L AST 30 5 - 34 U/L Total Bilirubin 0.3 0.3 - 1.2 mg/dL Protein, Total 6.8 6.4 - 8.3 g/dL Globulin 3.4 2.5 - 4.1 g/dL Anion Gap 15 (H) 4 - 12 A/G Ratio 1.0 0.7 - 1.9 Osmolality Calc 292.8 mOsm/kg Glucose, Nova Meter Status: Abnormal Collection Time: 03/15/25 8:09 AM Result Value Ref Range POC-GLUCOSE 142 (H) 70 - 110 mg/dL Logistics Management Specialist [id number] Glucose, Nova Meter Status: Abnormal Collection Time: 03/15/25 9:06 AM Result Value Ref Range POC-GLUCOSE 188 (H) 70 - 110 mg/dL Logistics Management Specialist [id number] Glucose, Nova Meter Status: Abnormal Collection Time: 03/15/25 10:02 AM Result Value Ref Range POC-GLUCOSE 170 (H) 70 - 110 mg/dL Logistics Management Specialist [id number] Glucose, Nova Meter Status: Abnormal Collection Time: 03/15/25 12:45 PM Result Value Ref Range POC-GLUCOSE 197 (H) 70 - 110 mg/dL Logistics Management Specialist [id number] Assessment LICA stenosis s/p CEA 03/13/25 Hypertension - SBP 160s Hypoxia - O2 sats low 90s Hyperglycemia - 400s Plan - restart jardiance - coreg 12.5 x1 now then 25mg q12 thereafter - mobilize - arrange for home O2 in anticipate of discharge 03/16/25 - keep in ICU until SBP consistently <150mmHg and O2 sats in the mid 90s CUTTER * Sanna Hassan, PT - 03/15/2025 10:18 AM EST Images from the original note were not included. [facility] Inpatient Physical Therapy Initial Evaluation Patient Name: Dilia Chester Date of : 1960 Date of Evaluation: 03/15/25 In Time 1018 Out Time 1046 Session Duration 28 minutes Time spent for nursing collaboration, chart and systems review, and clinical reasoning. 10 minutes Total Time 38 minutes Pt is a 65 y.o. female admitted on 03/13/2025 with Medical history unknown [Z78.9] More than 50 percent stenosis of left internal carotid artery [I65.22] Stenosis of left internal carotid artery [I65.22]. Past Medical History: Diagnosis Date Anemia Asthma [...] PLACEMENT X3, 2 STOMACH- 1 ANKLE TONSILLECTOMY General Visit type: Initial Evaluation Approved by: Nurse Rodrigues Patient Disposition Upon Entry: Supine in bed, HOB >30 degrees, Visitor/Family present Patient Verified By: Name and Date of Assisted by: process development technician Precautions Weight-Bearing Status: No Restrictions Precautions: Fall risk Isolation Precautions: Standard Lines, tubes, drains, airway: arterial line, peripheral IV, telemetry Subjective Subjective: Patient agreeable to physical therapy evaluation and treatment. Pain Yes. 0-10 SCALE Pain location: neck 3/10 Cognition Overall cognitive status: Patient is awake and alert, attending to directions appropriately, demonstrating good problem solving skills, and aware of any deficits or impairments, if present. Orientation Level: Oriented x4 Safety Judgment: Good awareness of safety precautions Home Living Lives with: Spouse Home Type: Mobile home Home Layout: One level Stairs to enter: 1 step(s) to the porch; 1 step into home Stairs inside home: none Home Equipment: Rolling walker, Single point cane, Manual wheelchair Functional Mobility PLOF: Patient reports being complete independent with all functional mobility prior to onset.reports needing to use wheelchair for community mobility Activities of Daily Living PLOF: Patient reports being complete independent with all ADL's prior toonset. Fall History: Yes, patient reports 1 fall(s) in the last 6 months. The most recent fall was September. Objective Vitals Pre-intervention vitals Heart rate: 87 beats per minute Blood pressure: 137/62 mmHg SpO2: 91% O2: 4 (L/min) nasal cannula Post-intervention vitals Heart rate: 101 beats per minute Blood pressure: 134/62 mmHg SpO2: 93% O2 : 4 (L/min) nasal cannula Basic Strength Assessment Grossly 4/5 bilateral lower extremities Range of Motion Assessment WFL for all extremities Sensation Sensation is intact and equal bilaterally. Coordination Coordination is intact and within normal limits. Functional Mobility Bed Mobility Supine to Sit: minimal assistance, HOB elevated Transfers Sit to Stand: contact guard assist, gait belt used, rolling walker used Gait Gait Assistance: contact guard assist Assistive Device: Gait Belt, Rolling walker Distance: 50 feet Gait speed: decreased dayo Deviation(s): decreased stride bilaterally Stair Management Not addressed today. Focus of treatment today on improving activity tolerance. Wheelchair Mobility Not assessed, patient ambulatory. Outcome Measures -[facility] Basic Mobility Inpatient Short Form How much difficulty does the patient currently have: Turning over in bed (including adjusting bedclothes, sheets, and blankets)? (1) Total/Unable (not able to do the activity or can only perform the activity using assistive devices or requires assistance from another person, including supervision or cueing for safety) Sitting down on and standing up from a chair with arms (e.g., wheelchair, bedside commode, etc.)? (1) Total/Unable (not able to do the activity or can only perform the activity using assistive devices or requires assistance from another person, including supervision or cueing for safety) Moving from lying on back to sitting on side of bed? (1) Total/Unable (not able to do the activity or can only perform the activity using assistive devices or requires assistance from another person,including supervision or cueing for safety) How much help from another person does the patient currently need: Moving to and from a bed to a chair (including a wheelchair)? (3) A little (Minimal/Contact guard/Supervision/Setup) Need to walk in hospital room? (3) A little (Minimal/Contact guard/Supervision/Setup) Climbing 3-5 steps with a railing? (2) A lot (Maximal/Moderate assist) Score Raw score=11 t-Scale score=33.86 Standard error=3.22 CMS 0-100%=72.57% MDC=4.72 A raw score of >= 16 is significantly associated with increased odds of discharge to home in addition to consideration made for the patient's cognition and social determinants of health. Balance Static/dynamic sitting and static/dynamic standing balance grades Balance Grade Sitting Static Good - patient able to maintain balance without handhold support, limited postural sway Sitting Dynamic Fair - patient accepts minimal challenge; able to maintain balance while turning head/trunk Standing Static Good - patient able to maintain balance without handhold support, limited postural sway Standing Dynamic Fair - patient accepts minimal challenge; able to maintain balance while turning head/trunk Activity Tolerance Patient limited with activity/intervention due to pain and fatigue Treatment Patient agreeable to PT evaluation. Assist required for supine > sit; able to demonstrate short distance ambulation without complaints of dizziness / headache. She does endorse fatigue following mobility assessment; no change in pain. RN present at bedside at end of evaluation. Assessment At baseline, patient was independent with ADLs, was independent with functional mobility. Patient presenting with decreased activity tolerance, generalized weakness with functional activities, impaired dynamic balance with ambulation, and fatigue with physical exertion. Because of this, patient would have difficulty with independently performing transferring, ambulating household distances, ambulating community distances, and negotiating stairs. These functional limitations put the patient at an increased risk for loss of independence with functional mobility and activities of daily living, falling, and complications due to immobilization. Patient would benefit from skilled physical therapyservices during length of stay for strengthening, endurance training to improve activity tolerance,stair training, gait training, and transfer training. Problems: Decreased core stability, Decreased functional mobility, Decreased gait tolerance, Decreased strength, Decreased activity tolerance, Impaired sitting balance, Impaired standing balance, Impaired dynamic balance, Gait impairment Rehab potential: Good for stated goals Plan Treatment Plan: Therapeutic Exercise, Therapeutic Activity, Gait Training, Neuromuscular Re-education, Transfer Training, Balance Training, Stair Training, Strengthening, Home Exercise Program, ROM, Co-Treat with OT PT Frequency/Duration: 5x/week for 14 days Recommendations Discharge recommendations: Discharge home/prior living situation. Patient would benefit from continued therapy services. DME recommendations: Unable to make recommendations at this time. Goals [id number]: By the target date, patient will perform [id number] with modified independence, utilizing HOB elevated, to improve independence with bed mobility. [id number]-rl-[id number]: By the target date, patient will perform sit to stand with complete independence and no assistive device to improve independence with functional mobility. Gait: Patient will ambulate 150' with complete independence and utilizing no assistive device in order to improve balance with ambulation and decrease risk of falling Stairs: By the target date, patient will negotiate 1 step(s), with a reciprocal pattern, utilizing no assistive device and complete independence, to demonstrate ability to safely negotiate stairs at home. Target Date: 03/29/2025 Goals were discussed with patient Education Patient/Visitors educated on safety, role of physical therapy, plan of care, ambulation, transfers,home safety, and need for assistance and following, they were able to verbalize understanding. No further questions or concerns stated. Interdisciplinary Communication Following treatment, therapist communicated with nursing regarding patient's performance during physical therapy session. Patient Disposition Upon Leaving Supine in bed, Call Light/Pull Cord in reach, All needs met and within reach, Nursing aware/notified, HOB >30 degrees, Visitor/Family present If this patient discharges prior to next therapy session, this note serves as the patient's discharge summary. Electronically signed by Sanna Hassan PT - 03/15/25 - 1:31 PM EST PT Evaluation Completed CUTTER * Silvia Barry MD - 03/15/2025 8:50 AM EST PULMONARY AND CRITICAL CARE Consult Note Date of Service: 03/15/2025 Time: 12:41 PM HPI: This is a 65 y.o. year old female with past medical history CKD, hypertension, chronic mesenteric ischemia, renal artery stenosis, and coronary artery stenosis, who presented on 03/13 for an electiveleft carotid endarterectomy with EEG with Dr. Quiles. Per chart review, patient has had multiple episodes of syncope/blackouts that started approximately6 months ago. Her symptoms were getting attributed to anemia, as she was requiring multiple transfusions. She was also experiencing intermittent mental status changes. Initial CT head/brain back in September 2024 was found to be normal, however a follow-up CT head wo contrast on 10/17 revealed a possibility of early and/or small acute/subacute ischemic infarct. On 02/22 patient had a CTA neck that showed heavily calcified plaque at the left carotid bifurcationwith 50 to 60% diameter stenosis. During the pre-operative work up on 03/12 her blood glucose levelwas noted to be in the 600s. She was seen at the ER, treated with regular insulin and discharged home. Additional blood work was notable for hemoglobin 10.0, hematocrit 29.5, sodium 128, anion gap 17, BUN 35.8, creatinine 2.08, eGFR 26, Today she underwent planned procedure and returned to CTVU post-operatively. Pulmonary team was consulted for critical care management. Patient was seen and examined at bedside this afternoon. She still moderately drowsy after anesthesia, follows commands intermittently. She is not able to fully par ticipate in review of systems, or provide any meaningful history. She is on 6L via simple mask, satting 94-96%. Appears to be in the mild respiratory distress. She is hemodynamically stable, but requiring Cardene infusion to keep her systolic blood pressure under 160 mmHg. No carotid bruits auscultated. Trace edema noted in bilateral upper and lower extremities. No family at bedside during the exam. Per chart review patient is a former cigarette smoker, she quit 6 years ago, however she still vapes daily. Daily progress notes: 03/14: Patient was seen and examined today. During rounds patient was awake, alert, oriented. Denied any complaints. Vitals reviewed, currently patient on 8 L oxygen to maintain sat above 88% mild tachypnea noted, but no tachycardia. Labs reviewed white cell count within normal, creatinine 1.49. 03/15: Patient was seen and examined today. During rounds patient was awake, alert, oriented. Denies any complaints. Vitals reviewed, patient still on high flow nasal cannula 5 L, with some episodes of hypoxia down to 87, mild tachypnea noted, but no tachycardia. Labs reviewed, white cell count normal. Patient on insulin drip, discussed with the nurse and will switch patient to sliding scale. Patient can be transferred to the floor. PAST MEDICAL HISTORY: Past Medical History: Diagnosis Date Anemia Asthma Blood transfusion without reported diagnosis 10/2024 Carotid artery stenosis Chronic kidney disease, stage 2 (mild) Chronic pain COPD (chronic obstructive pulmonary disease) (HCC) Coronary artery disease Diabetes mellitus (HCC) Fibromyalgia GERD (gastroesophageal reflux disease) Hyperlipidemia Hypertension Mitral valve prolapse Neuropathy Restless legs Seasonal allergies Wears dentures only wears top plate PAST SURGICAL HISTORY: Past Surgical History: Procedure Laterality Date APPENDECTOMY CAROTID ENDARTERECTOMY Right CARPAL TUNNEL RELEASE Right CHOLECYSTECTOMY DILATION AND CURETTAGE, DIAGNOSTIC / THERAPEUTIC EYE SURGERY Bilateral Cataract HYSTERECTOMY Intrathecal Pain Pump STENT PLACEMENT X3, 2 STOMACH- 1 ANKLE TONSILLECTOMY Allergies: Allergies Allergen Reactions Lidocaine Hives Latex Rash SOCIAL HISTORY: Social History Tobacco Use Smoking status: Former Current packs/day: 0.00 Types: Cigarettes Quit date: 2018 Years since quittin.9 Smokeless tobacco: Current Tobacco comments: Quit on 2019, Vapes daily Vaping Use Vaping status: Every Day Substances: Nicotine Substance Use Topics Alcohol use: Not Currently Drug use: Never FAMILY HISTORY: family history is not on file. Review of Systems Unable to perform ROS: Mental acuity Vital Signs Temp: [98.1 ??F (36.7 ??C)-99.1 ??F (37.3 ??C)] 98.9 ??F (37.2 ??C) Pulse: [80-106] 86 Resp: [10-51] 18 BP: (125-165)/(60-72) 165/72 Arterial Line BP 1: (129-202)/(37-66) 191/46 Current: Temp: 98.9 ??F (37.2 ??C) Pulse: 86 Resp: 18 BP: (!) 165/72 SpO2: 93 % 24 Hour: BP Min: 125/60 Max: 165/72 Temp Min: 98.1 ??F (36.7 ??C) Max: 99.1 ??F (37.3 ??C) Pulse Min: 80 Max: 106 Resp Min: 10 Max: 51 SpO2 Min: 87 % Max: 100 % Intake/Output: I/O last 3 completed shifts: In: 1769.1 [P.O.:840; I.V.:929.1] Out: 2100 [Urine:2100] Physical Exam Constitutional: Appearance: She is well-developed. She is ill-appearing. Interventions: Face mask in place. HENT: Head: Normocephalic. Nose: Nose normal. Mouth/Throat: Pharynx: Oropharynx is clear. Eyes: Pupils: Pupils are equal, round, and reactive to light. Cardiovascular: Rate and Rhythm: Normal rate and regular rhythm. Pulses: Normal pulses. Heart sounds: Normal heart sounds. No murmur heard. Pulmonary: Effort: Respiratory distress present. Breath sounds: No wheezing or rhonchi. Abdominal: General: Bowel sounds are decreased. There is distension. Tenderness: There is no abdominal tenderness. Musculoskeletal: Cervical back: Normal range of motion. Right lower leg: Edema present. Left lower leg: Edema present. Skin: General: Skin is dry. Capillary Refill: Capillary refill takes less than 2 seconds. Coloration: Skin is pale. Comments: S/p left endarterectomy. Site is well-approximated. Neurological: Mental Status: She is lethargic. GCS: GCS eye subscore is 2. GCS verbal subscore is 3. GCS motor subscore is 6. Psychiatric: Comments: JOHN, drowsy Vent / O2 Management: LABS Results for orders placed or performed during the hospital encounter of 03/13/25 (from the past 24 hours) Glucose, Nova Meter Status: Abnormal Collection Time: 03/14/25 11:17 AM Result Value Ref Range POC-GLUCOSE 401 (H) 70 - 110 mg/dL Logistics Management Specialist [id number] Glucose, Nova Meter Status: Abnormal Collection Time: 03/14/25 4:09 PM Result Value Ref Range POC-GLUCOSE 462 (HH) 70 - 110 mg/dL Logistics Management Specialist [id number] Glucose, Nova Meter Status: Abnormal Collection Time: 03/14/25 4:12 PM Result Value Ref Range POC-GLUCOSE 498 (HH) 70 - 110 mg/dL Logistics Management Specialist [id number] Glucose, Nova Meter Status: Abnormal Collection Time: 03/14/25 5:13 PM Result Value Ref Range POC-GLUCOSE 496 (HH) 70 - 110 mg/dL Logistics Management Specialist [id number] Glucose, Nova Meter Status: Abnormal Collection Time: 03/14/25 6:13 PM Result Value Ref Range POC-GLUCOSE 458 (HH) 70 - 110 mg/dL Logistics Management Specialist [id number] Glucose, Nova Meter Status: Abnormal Collection Time: 03/14/25 6:59 PM Result Value Ref Range POC-GLUCOSE 403 (H) 70 - 110 mg/dL Logistics Management Specialist [id number] Glucose, Nova Meter Status: Abnormal Collection Time: 03/14/25 8:05 PM Result Value Ref Range POC-GLUCOSE 364 (H) 70 - 110 mg/dL Logistics Management Specialist [id number] Glucose, Nova Meter Status: Abnormal Collection Time: 03/14/25 9:02 PM Result Value Ref Range POC-GLUCOSE 262 (H) 70 - 110 mg/dL Logistics Management Specialist [id number] Glucose, Nova Meter Status: Abnormal Collection Time: 03/14/25 10:13 PM Result Value Ref Range POC-GLUCOSE 189 (H) 70 - 110 mg/dL Logistics Management Specialist [id number] Glucose, Nova Meter Status: Abnormal Collection Time: 03/14/25 11:03 PM Result Value Ref Range POC-GLUCOSE 141 (H) 70 - 110 mg/dL Logistics Management Specialist [phone] Glucose, Nova Meter Status: Abnormal Collection Time: 03/15/25 12:03 AM Result Value Ref Range POC-GLUCOSE 169 (H) 70 - 110 mg/dL Logistics Management Specialist [id number] Glucose, Nova Meter Status: Abnormal Collection Time: 03/15/25 1:04 AM Result Value Ref Range POC-GLUCOSE 137 (H) 70 - 110 mg/dL Logistics Management Specialist [id number] Glucose, Nova Meter Status: Abnormal Collection Time: 03/15/25 2:04 AM Result Value Ref Range POC-GLUCOSE 179 (H) 70 - 110 mg/dL Logistics Management Specialist [id number] Glucose, Nova Meter Status: Abnormal Collection Time: 03/15/25 2:54 AM Result Value Ref Range POC-GLUCOSE 235 (H) 70 - 110 mg/dL Logistics Management Specialist [id number] Glucose, Nova Meter Status: Abnormal Collection Time: 03/15/25 4:03 AM Result Value Ref Range POC-GLUCOSE 210 (H) 70 - 110 mg/dL Logistics Management Specialist [id number] Glucose, Nova Meter Status: Abnormal Collection Time: 03/15/25 5:00 AM Result Value Ref Range POC-GLUCOSE 161 (H) 70 - 110 mg/dL Logistics Management Specialist [id number] Glucose, Nova Meter Status: Abnormal Collection Time: 03/15/25 6:07 AM Result Value Ref Range POC-GLUCOSE 124 (H) 70 - 110 mg/dL Logistics Management Specialist [id number] Glucose, Nova Meter Status: Abnormal Collection Time: 03/15/25 7:00 AM Result Value Ref Range POC-GLUCOSE 114 (H) 70 - 110 mg/dL Log[employer] Management Specialist [id number] Comprehensive metabolic panel Status: Abnormal Collection Time: 03/15/25 8:03 AM Result Value Ref Range Sodium 141 136 - 145 meq/L Potassium 3.8 3.4 - 5.1 meq/L Chloride 107 98 - 112 meq/L CO2 23 22 - 29 meq/L Calcium 8.9 8.4 - 10.2 mg/dL Glucose 144 (H) 82 - 115 mg/dL BUN 38.0 (H) 9.8 - 20.1 mg/dL Creatinine 1.51 (H) 0.50 - 1.20 mg/dL BUN/Creatinine 25 (H) 8 - 20 eGFR (mL/min/1.73m2) 38 (L) >=60 mL/min/1.73m2 Albumin 3.4 (L) 3.5 - 5.0 g/dL Alkaline Phosphatase 96 40 - 150 U/L ALT 14 <55 U/L AST 30 5 - 34 U/L Total Bilirubin 0.3 0.3 - 1.2 mg/dL Protein, Total 6.8 6.4 - 8.3 g/dL Globulin 3.4 2.5 - 4.1 g/dL Anion Gap 15 (H) 4 - 12 A/G Ratio 1.0 0.7 - 1.9 Osmolality Calc 292.8 mOsm/kg Glucose, Nova Meter Status: Abnormal Collection Time: 03/15/25 8:09 AM Result Value Ref Range POC-GLUCOSE 142 (H) 70 - 110 mg/dL Logistics Management Specialist [id number] Radiology CTA neck 02/22: FINDINGS: Aortic arch: Arch shows no significant [...] No evidence of significant vertebral artery stenosis. Microbiology: Microbiology Results (last 7 days) No results found for the last 168 hours. ASSESSMENT: Pulmonary: Respiratory insufficiently in setting of post anesthesia Requiring supplemental oxygen 8L simple algebraist cigarette smoker. Quit 6 years ago Vapes daily Neuro: S/p left endarterectomy with Dr. Quiles on 03/13 History of multiple syncopal episodes/blackouts in the past 6 months Right carotid endarterectomy in 2019 Drowsy Heme/Onc: Symptomatic anemia requiring transfusions in the past Cardiovascular: S/p left endarterectomy with Dr. Quiles on 03/13 History of hypertension Chronic mesenteric ischemia Renal artery stenosis ID: No s/s of infection Renal: CKD Pseudohyponatremia Endo: Hyperglycemia PLAN: Maintain sat >88%, currently pt on high flow nasal cannula 6 ABG noted. Last chest x-ray reviewed independently, showed mild left lower lobe atelectasis Xopenex and ipratropium Sedation: None Hemodynamics: Off Cardene. Resumed on home oral antihypertensive, amlodipine, carvedilol and metoprolol. A-fib RVR: Off Cardizem drip IV fluid: Off Antimicrobial therapy: None. Monitor white count and temperature curve. Monitor renal functions and electrolytes. Replace electrolytes to maintain serum potassium of 4.0 and serum magnesium of 2.0 with appropriatereplacement per protocol. Monitor I's and O's strictly. Monitor LFTs. Monitor H&H closely. And transfuse for hemoglobin of less than 7 g. Monitor white count and platelets. Nutrition: Oral diet. Glycemic control to maintain blood sugars between 140-180. On insulin drip, will switch to sliding scale Bowel regimen: Docusate and senna as needed for constipation. GI prophylaxis: Protonix. DVT prophylaxis: Defer to vascular team. CODE STATUS: Full code Prognosis: Fair High risk of further decline. I Dr.Al Car, have personally evaluated the patient and performed a [id number] diagnostic evaluation on this patient; I have Obtained history, performed physical examination, reviewed laboratory studies. I have independently interpreted chest images. I have actively directed the medical care, formulated diagnosis, and the plan of care. Patient requires a high complexity of decision making for assessment. Voice employee relations assistant technology ([employer]) is used for dictation of this note and sound-alike words might be erroneously placed despite reviewing the note for accuracy. Errors in dictation may reflect use of voice recognition software and not all errors in employee relations assistant may have been detected prior to signing. CUTTER * Vickie Jameson RN - 03/15/2025 8:21 AM EST Discharge Plan Progress Note POD #2 Left carotid endarterectomy. No medically ready for dc to home. Oxygen requirements of 6l/min and on insulin drip. DC needs possible for home oxygen arrangements. Order for home oxygen evaluation obtained. Will arrange O2 in prep for dc on 03/16/25. Vickie Jameson RN CUTTER CUTTER * Silvia Barry MD - 03/14/2025 10:27 AM EST PULMONARY AND CRITICAL CARE Consult Note Date of Service: 03/14/2025 Time: 12:41 PM HPI: This is a 65 y.o. year old female with past medical history CKD, hypertension, chronic mesenteric ischemia, renal artery stenosis, and coronary artery stenosis, who presented on 03/13 for an electiveleft carotid endarterectomy with EEG with Dr. Quiles. Per chart review, patient has had multiple episodes of syncope/blackouts that started approximately6 months ago. Her symptoms were getting attributed to anemia, as she was requiring multiple transfusions. She was also experiencing intermittent mental status changes. Initial CT head/brain back in September 2024 was found to be normal, however a follow-up CT head wo contrast on 10/17 revealed a possibility of early and/or small acute/subacute ischemic infarct. On 02/22 patient had a CTA neck that showed heavily calcified plaque at the left carotid bifurcationwith 50 to 60% diameter stenosis. During the pre-operative work up on 03/12 her blood glucose levelwas noted to be in the 600s. She was seen at the ER, treated with regular insulin and discharged home. Additional blood work was notable for hemoglobin 10.0, hematocrit 29.5, sodium 128, anion gap 17, BUN 35.8, creatinine 2.08, eGFR 26, Today she underwent planned procedure and returned to CTVU post-operatively. Pulmonary team was consulted for critical care management. Patient was seen and examined at bedside this afternoon. She still moderately drowsy after anesthesia, follows commands intermittently. She is not able to fully par ticipate in review of systems, or provide any meaningful history. She is on 6L via simple mask, satting 94-96%. Appears to be in the mild respiratory distress. She is hemodynamically stable, but requiring Cardene infusion to keep her systolic blood pressure under 160 mmHg. No carotid bruits auscultated. Trace edema noted in bilateral upper and lower extremities. No family at bedside during the exam. Per chart review patient is a former cigarette smoker, she quit 6 years ago, however she still vapes daily. Daily progress notes: 03/14: Patient was seen and examined today. During rounds patient was awake, alert, oriented. Denied any complaints. Vitals reviewed, currently patient on 8 L oxygen to maintain sat above 88% mild tachypnea noted, but no tachycardia. Labs reviewed white cell count within normal, creatinine 1.49. PAST MEDICAL HISTORY: Past Medical History: Diagnosis Date Anemia Asthma Blood transfusion without reported diagnosis 10/2024 Carotid artery stenosis Chronic kidney disease, stage 2 (mild) Chronic pain COPD (chronic obstructive pulmonary disease) (HCC) Coronary artery disease Diabetes mellitus (HCC) Fibromyalgia GERD (gastroesophageal reflux disease) Hyperlipidemia Hypertension Mitral valve prolapse Neuropathy Restless legs Seasonal allergies Wears dentures only wears top plate PAST SURGICAL HISTORY: Past Surgical History: Procedure Laterality Date APPENDECTOMY CAROTID ENDARTERECTOMY Right CARPAL TUNNEL RELEASE Right CHOLECYSTECTOMY DILATION AND CURETTAGE, DIAGNOSTIC / THERAPEUTIC EYE SURGERY Bilateral Cataract HYSTERECTOMY Intrathecal Pain Pump STENT PLACEMENT X3, 2 STOMACH- 1 ANKLE TONSILLECTOMY Allergies: Allergies Allergen Reactions Lidocaine Hives Latex Rash SOCIAL HISTORY: Social History Tobacco Use Smoking status: Former Current packs/day: 0.00 Types: Cigarettes Quit date: 2019 Years since quittin.9 Smokeless tobacco: Current Tobacco comments: Quit on 2019, Vapes daily Vaping Use Vaping status: Every Day Substances: Nicotine Substance Use Topics Alcohol use: Not Currently Drug use: Never FAMILY HISTORY: family history is not on file. Review of Systems Unable to perform ROS: Mental acuity Vital Signs Temp: [97.3 ??F (36.3 ??C)-99.9 ??F (37.7 ??C)] 98.9 ??F (37.2 ??C) Pulse: [69-91] 90 Resp: [9-34] 22 BP: (84-164)/(48-69) 164/59 Arterial Line BP 1: (113-184)/(30-70) 129/42 FiO2 (%): [60 %] 60 % Current: Temp: 98.9 ??F (37.2 ??C) Pulse: 90 Resp: 22 BP: (!) 164/59 SpO2: 92 % 24 Hour: BP Min: 84/48 Max: 164/59 Temp Min: 97.3 ??F (36.3 ??C) Max: 99.9 ??F (37.7 ??C) Pulse Min: 69 Max: 91 Resp Min: 9 Max: 34 SpO2 Min: 85 % Max: 100 % Intake/Output: I/O last 3 completed shifts: In: 2877 [I.V.:2827; IV Piggyback:50] Out: 2150 [Urine:2100; Blood:50] Physical Exam Constitutional: Appearance: She is well-developed. She is ill-appearing. Interventions: Face mask in place. HENT: Head: Normocephalic. Nose: Nose normal. Mouth/Throat: Pharynx: Oropharynx is clear. Eyes: Pupils: Pupils are equal, round, and reactive to light. Cardiovascular: Rate and Rhythm: Normal rate and regular rhythm. Pulses: Normal pulses. Heart sounds: Normal heart sounds. No murmur heard. Pulmonary: Effort: Respiratory distress present. Breath sounds: No wheezing or rhonchi. Abdominal: General: Bowel sounds are decreased. There is distension. Tenderness: There is no abdominal tenderness. Musculoskeletal: Cervical back: Normal range of motion. Right lower leg: Edema present. Left lower leg: Edema present. Skin: General: Skin is dry. Capillary Refill: Capillary refill takes less than 2 seconds. Coloration: Skin is pale. Comments: S/p left endarterectomy. Site is well-approximated. Neurological: Mental Status: She is lethargic. GCS: GCS eye subscore is 2. GCS verbal subscore is 3. GCS motor subscore is 6. Psychiatric: Comments: JOHN, drowsy Vent / O2 Management: FiO2 (%): [60 %] 60 % LABS Results for orders placed or performed during the hospital encounter of 03/13/25 (from the past 24 hours) Glucose, Nova Meter Status: Abnormal Collection Time: 03/13/25 10:41 AM Result Value Ref Range POC-GLUCOSE 173 (H) 70 - 110 mg/dL Logistics Management Specialist [id number] Glucose, Nova Meter Status: Abnormal Collection Time: 03/13/25 11:09 AM Result Value Ref Range POC-GLUCOSE 156 (H) 70 - 110 mg/dL Logistics Management Specialist [id number] Glucose, Nova Meter Status: Abnormal Collection Time: 03/13/25 1:09 PM Result Value Ref Range POC-GLUCOSE 203 (H) 70 - 110 mg/dL Logistics Management Specialist [id number] Glucose, Nova Meter Status: None Collection Time: 03/13/25 4:29 PM Result Value Ref Range POC-GLUCOSE 109 70 - 110 mg/dL Logistics Management Specialist [id number] Blood gas, arterial Status: Abnormal Collection Time: 03/13/25 8:13 PM Result Value Ref Range pH, Arterial 7.30 (L) 7.35 - 7.45 pCO2, Arterial 47 (H) 35 - 45 mm Hg pO2, Arterial 71 (L) 80 - 100 mm Hg HCO3, Arterial 23 20 - 26 mmol/L Base Excess, Arterial -3.3 (L) -2.0 - 2.0 mmol/L O2 Sat, Arterial 93.7 (L) 95.0 - 100.0 % CTO2 ARTERIAL 12.7 mmol/L THB ARTERIAL 9.7 (L) 12.0 - 18.0 g/dL PaO2/FIO2 calculated 142.[address] [facility] COLLECTION SITE Arterial Line Arterial Puncture No Blood Gas O2 Delivery Device NIV Blood Gas Tidal Volume 677.0 Blood Gas PT Temperature C 37.0 Daniele's Test Not Applicable Critical Values Notification Critical Blood gas called to OZZY CHAVARRIA APRN . Results acknowledged/read back to [id number] and confirmed on 03/13/2025 20:17 ABG Number of Draw Attempts 1 Set Rate 16.0 IPAP 18 EPAP 6 FIO2 50.0 Blood Gas Temperature Corrected Results No No Glucose, Nova Meter Status: Abnormal Collection Time: 03/13/25 9:25 PM Result Value Ref Range POC-GLUCOSE 60 (L) 70 - 110 mg/dL Logistics Management Specialist [id number] Comprehensive metabolic panel Status: Abnormal Collection Time: 03/13/25 9:27 PM Result Value Ref Range Sodium 142 136 - 145 meq/L Potassium 3.9 3.4 - 5.1 meq/L Chloride 110 98 - 112 meq/L CO2 21 (L) 22 - 29 meq/L Calcium 8.0 (L) 8.4 - 10.2 mg/dL Glucose 110 82 - 115 mg/dL BUN 25.4 (H) 9.8 - 20.1 mg/dL Creatinine 1.49 (H) 0.50 - 1.20 mg/dL BUN/Creatinine 17 8 - 20 eGFR (mL/min/1.73m2) 39 (L) >=60 mL/min/1.73m2 Albumin 3.2 (L) 3.5 - 5.0 g/dL Alkaline Phosphatase 99 40 - 150 U/L ALT 15 <55 U/L AST 37 (H) 5 - 34 U/L Total Bilirubin 0.2 (L) 0.3 - 1.2 mg/dL Protein, Total 6.0 (L) 6.4 - 8.3 g/dL Globulin 2.8 2.5 - 4.1 g/dL Anion Gap 15 (H) 4 - 12 A/G Ratio 1.1 0.7 - 1.9 Osmolality Calc 288.3 mOsm/kg Magnesium Status: Normal Collection Time: 03/13/25 9:27 PM Result Value Ref Range Magnesium 1.7 1.6 - 2.6 mg/dL Phosphorus Status: Normal Collection Time: 03/13/25 9:27 PM Result Value Ref Range Phosphorus 3.9 2.5 - 4.5 mg/dL CALCIUM Ionized Status: Abnormal Collection Time: 03/13/25 9:27 PM Result Value Ref Range Calcium Ionized 1.04 (L) 1.12 - 1.32 mmol/L CBC with automated diff Status: Abnormal Collection Time: 03/13/25 9:27 PM Result Value Ref Range WBC 7.2 4.0 - 10.0 K/??L RBC 2.82 (L) 3.93 - 5.22 M/??L Hemoglobin 8.5 (L) 11.2 - 15.7 GM/DL Hematocrit 24.9 (L) 34.1 - 44.9 % MCV 88 79 - 95 fL MCH 30.1 25.6 - 32.2 pg MCHC 34.1 32.2 - 35.5 GM/DL RDW 12.4 11.7 - 14.4 % Platelets 182 140 - 375 K/CU MM MPV 9.4 9.4 - 12.3 fL % Neutros 85 (H) 34 - 71 % % Lymphs 9 (L) 19 - 52 % % Monos 5 5 - 13 % % Eos 1.1 1.0 - 6.0 % % Baso 0 0 - 1 % NRBC Absolute <0.01 0 - 0.012 K/ul # Neutros 6.09 1.56 - 6.13 K/??L # Lymphs 0.62 (L) 1.18 - 3.74 K/??L # Monos 0.37 0.24 - 0.86 K/??L # Eos 0.08 0.04 - 0.36 K/??L # Baso <0.03 0.01 - 0.08 K/ L % Imm Grans 0.40 0.01 - 0.43 % # IG 0.03 0.00 - 0.03 K/uL Glucose, Nova Meter Status: Abnormal Collection Time: 03/13/25 11:24 PM Result Value Ref Range POC-GLUCOSE 180 (H) 70 - 110 mg/dL Logistics Management Specialist [id number] Blood gas, arterial Status: Abnormal Collection Time: 03/13/25 11:25 PM Result Value Ref Range pH, Arterial 7.31 (L) 7.35 - 7.45 pCO2, Arterial 43 35 - 45 mm Hg pO2, Arterial 75 (L) 80 - 100 mm Hg HCO3, Arterial 22 20 - 26 mmol/L Base Excess, Arterial -4.1 (L) -2.0 - 2.0 mmol/L O2 Sat, Arterial 95.3 95.0 - 100.0 % CTO2 ARTERIAL 11.2 mmol/L THB ARTERIAL 8.4 (L) 12.0 - 18.0 g/dL [facility] Arterial Line Arterial Puncture No Blood Gas O2 Delivery Device Cannula Oxygen Flow Rate 6 Blood Gas PT Temperature C 37.0 Daniele's Test Not Applicable ABG Number of Draw Attempts 1 FIO2 Blood Gas Temperature Corrected Results No No CBC with Automated Diff Status: Abnormal Collection Time: 03/14/25 3:20 AM Result Value Ref Range WBC 7.8 4.0 - 10.0 K/??L RBC 2.92 (L) 3.93 - 5.22 M/??L Hemoglobin 8.6 (L) 11.2 - 15.7 GM/DL Hematocrit 25.8 (L) 34.1 - 44.9 % MCV 88 79 - 95 fL MCH 29.5 25.6 - 32.2 pg MCHC 33.3 32.2 - 35.5 GM/DL RDW 12.7 11.7 - 14.4 % Platelets 185 140 - 375 K/CU MM MPV 9.4 9.4 - 12.3 fL % Neutros 92 (H) 34 - 71 % % Lymphs 6 (L) 19 - 52 % % Monos 1 (L) 5 - 13 % % Eos 0.1 (L) 1.0 - 6.0 % % Baso 0 0 - 1 % NRBC Absolute <0.01 0 - 0.012 K/ul # Neutros 7.16 (H) 1.56 - 6.13 K/??L # Lymphs 0.47 (L) 1.18 - 3.74 K/??L # Monos 0.05 (L) 0.24 - 0.86 K/??L # Eos <0.03 (L) 0.04 - 0.36 K/ L # Baso <0.03 0.01 - 0.08 K/ L % Imm Grans 0.60 (H) 0.01 - 0.43 % # IG 0.05 (H) 0.00 - 0.03 K/uL Comprehensive metabolic panel Status: Abnormal Collection Time: 03/14/25 3:20 AM Result Value Ref Range Sodium 139 136 - 145 meq/L Potassium 4.2 3.4 - 5.1 meq/L Chloride 109 98 - 112 meq/L CO2 20 (L) 22 - 29 meq/L Calcium 8.6 8.4 - 10.2 mg/dL Glucose 239 (H) 82 - 115 mg/dL BUN 24.8 (H) 9.8 - 20.1 mg/dL Creatinine 1.49 (H) 0.50 - 1.20 mg/dL BUN/Creatinine 17 8 - 20 eGFR (mL/min/1.73m2) 39 (L) >=60 mL/min/1.73m2 Albumin 3.1 (L) 3.5 - 5.0 g/dL Alkaline Phosphatase 116 40 - 150 U/L ALT 21 <55 U/L AST 39 (H) 5 - 34 U/L Total Bilirubin 0.2 (L) 0.3 - 1.2 mg/dL Protein, Total 6.2 (L) 6.4 - 8.3 g/dL Globulin 3.1 2.5 - 4.1 g/dL Anion Gap 14 (H) 4 - 12 A/G Ratio 1.0 0.7 - 1.9 Osmolality Calc 289.7 mOsm/kg Magnesium Status: Normal Collection Time: 03/14/25 3:20 AM Result Value Ref Range Magnesium 2.4 1.6 - 2.6 mg/dL CALCIUM Ionized Status: Normal Collection Time: 03/14/25 3:20 AM Result Value Ref Range Calcium Ionized 1.21 1.12 - 1.32 mmol/L CBC Scan Status: Abnormal Collection Time: 03/14/25 3:20 AM Result Value Ref Range Platelet Estimate Adequate Adequate RBC Morphology abnormal (A) Normal Anisocytosis 1+ Hypochromia 1+ Polychromasia 1+ Glucose, Nova Meter Status: Abnormal Collection Time: 03/14/25 6:31 AM Result Value Ref Range POC-GLUCOSE 155 (H) 70 - 110 mg/dL Logistics Management Specialist [id number] Radiology CTA neck 02/22: FINDINGS: Aortic arch: Arch shows no significant [...] No evidence of significant vertebral artery stenosis. Microbiology: Microbiology Results (last 7 days) No results found for the last 168 hours. ASSESSMENT: Pulmonary: Respiratory insufficiently in setting of post anesthesia Requiring supplemental oxygen 8L simple algebraist cigarette smoker. Quit 6 years ago Vapes daily Neuro: S/p left endarterectomy with Dr. Quiles on 03/13 History of multiple syncopal episodes/blackouts in the past 6 months Right carotid endarterectomy in 2019 Drowsy Heme/Onc: Symptomatic anemia requiring transfusions in the past Cardiovascular: S/p left endarterectomy with Dr. Quiles on 03/13 History of hypertension Chronic mesenteric ischemia Renal artery stenosis ID: No s/s of infection Renal: CKD Pseudohyponatremia Endo: Hyperglycemia PLAN: Maintain sat >88%, currently pt on high flow nasal cannula 8 ABG noted. Chest x-ray was done, reviewed independently, showed mild left lower lobe atelectasis DuoNebs. Will switch to Xopenex and ipratropium Sedation: None Hemodynamics: Off Cardene. Resumed on home oral antihypertensive, amlodipine, carvedilol and metoprolol. A-fib RVR: Off Cardizem drip IV fluid: Off Antimicrobial therapy: None. Monitor white count and temperature curve. Monitor renal functions and electrolytes. Replace electrolytes to maintain serum potassium of 4.0 and serum magnesium of 2.0 with appropriatereplacement per protocol. Monitor I's and O's strictly. Monitor LFTs. Monitor H&H closely. And transfuse for hemoglobin of less than 7 g. Monitor white count and platelets. Nutrition: Currently n.p.o., postop, once patient is more awake, likely to resume oral diet Glycemic control to maintain blood sugars between 140-180. Bowel regimen: Docusate and senna as needed for constipation. GI prophylaxis: Protonix. DVT prophylaxis: Defer to vascular team. CODE STATUS: Full code Prognosis: Fair High risk of further decline. I Dr.Al Car, have personally evaluated the patient and performed a [id number] diagnostic evaluation on this patient; I have Obtained history, performed physical examination, reviewed laboratory studies. I have independently interpreted chest images. I have actively directed the medical care, formulated diagnosis, and the plan of care. Patient requires a high complexity of decision making for assessment. 31 minutes critical care time was spent. Voice employee relations assistant technology ([employer]) is used for dictation of this note and sound-alike words might be erroneously placed despite reviewing the note for accuracy. Errors in dictation may reflect use of voice recognition software and not all errors in employee relations assistant may have been detected prior to signing. CUTTER * Chaplain Levi - 03/13/2025 6:45 AM EST Spiritual Care Progress Note Surgery referral Provided pre-surgery visit and prayer with patient and . Chaplain Levi 03/13/2025 7:21 AM CUTTER documented in this encounter H&P Notes * Dionicio Garcia APRN - 03/13/2025 7:25 AM EST History of Present Illness History Of Present Illness Dilia Chester is a 65 y.o. female presenting with with pertinent PMH of CKD, HTN, and carotid artery stenosis. CTA neck on 02/22/25 showed heavily calcified plaque at the left carotid bifurcation with 50-60% diameter stenosis. After having labs collected yesterday for pre-op testing, she was advised to go to the eR for an glucose > 600. She denied symptoms. BG this morning is 304 per . This morning the patient complains of 5/10 low back pain. Denies neck pain, chest pain, SOA,and fever. Patient was evaluated by Dr. Quiles and presents today for an elective left carotid endarterectomy with EEG. Past Medical History She has a past medical history of Anemia, Asthma, Blood transfusion without reported diagnosis (10/2024), Carotid artery stenosis, Chronic kidney disease, stage 2 (mild), Chronic pain, COPD (chronic obstructive pulmonary disease) (HCC), Coronary artery disease, Diabetes mellitus (HCC), Fibromyalgia, GERD (gastroesophageal reflux disease), Hyperlipidemia, Hypertension, Mitral valve prolapse, Neuropathy, Restless legs, Seasonal allergies, and Wears dentures. Surgical History She has a past surgical history that includes Hysterectomy; Cholecystectomy; Carotid endarterectomy(Right); Carpal tunnel release (Right); STENT PLACEMENT X3, 2 STOMACH- 1 ANKLE; Tonsillectomy; Appendectomy; Eye surgery (Bilateral); Dilation and curettage, diagnostic / therapeutic; and IntrathecalPain Pump. Social History She reports that she quit smoking about 6 years ago. Her smoking use included cigarettes. She uses smokeless tobacco. She reports that she does not currently use alcohol. She reports that she does not use drugs. Family History Her family history is not on file. Allergies Lidocaine and Latex Medications Current Outpatient Medications Medication Instructions albuterol 90 [...] Ellipta) 62.5-25 mcg/actuation dsdv inhalation, Every evening Review of Systems 14-point ROS completed and noncontributory except as above. Last Recorded Vitals There were no vitals taken for this visit. Physical Exam Vitals and nursing note reviewed. Constitutional: General: She is not in acute distress. Appearance: Normal appearance. She is normal weight. She is not ill-appearing or toxic-appearing. Neck: Vascular: Carotid bruit present. Cardiovascular: Rate and Rhythm: Normal rate and regular rhythm. Pulses: Normal pulses. Heart sounds: Normal heart sounds. Pulmonary: Effort: Pulmonary effort is normal. Breath sounds: Normal breath sounds. Abdominal: General: Abdomen is flat. Bowel sounds are normal. There is no distension. Palpations: Abdomen is soft. Tenderness: There is no abdominal tenderness. Musculoskeletal: General: Normal range of motion. Cervical back: Neck supple. No tenderness. Skin: General: Skin is warm and dry. Capillary Refill: Capillary refill takes less than 2 seconds. Neurological: General: No focal deficit present. Mental Status: She is alert and oriented to person, place, and time. Psychiatric: Mood and Affect: Mood normal. Behavior: Behavior normal. Diagnostic Results Admission on 03/13/2025 Component Date Value Ref Range Status POC-GLUCOSE 03/13/2025 304 (H) 70 - 110 mg/dL Final Logistics Management Specialist 03/13/2025 [id number] Final CTA NECK Narrative: CTA CAROTID HISTORY: Abnormal ultrasound, bilateral carotid [...] are codominant. No significant stenosis is present. Impression: No evidence of right carotid stenosis. Heavily calcified plaque at the left carotid bifurcation decreases accuracy but there is 50-60% diameter stenosis. If indicated, this could be further evaluated with catheter angiogram. No evidence of significant vertebral artery stenosis. Images reviewed, interpreted, and dictated by Ronnie Sandoval MD Assessment & Plan Occlusion of left carotid artery -To OR for scheduled procedure CAD PAD Renal artery stenosis CKD Lumbar DJD DM HTN MARIE HLD Emphysema Tobacco use disorder Electronically signed by: Dionicio Garcia APRN, 03/13/2025 at 7:25 AM Cosigned by Eagle Quiles DO at 03/13/2025 8:20 AM EST CUTTER CUTTER documented in this encounter Consult Notes * Silvia Barry MD - 03/13/2025 12:40 PM EST PULMONARY AND CRITICAL CARE Consult Note Date of Service: 03/13/2025 Time: 12:41 PM HPI: This is a 65 y.o. year old female with past medical history CKD, hypertension, chronic mesenteric ischemia, renal artery stenosis, and coronary artery stenosis, who presented on 03/13 for an electiveleft carotid endarterectomy with EEG with Dr. Quiles. Per chart review, patient has had multiple episodes of syncope/blackouts that started approximately6 months ago. Her symptoms were getting attributed to anemia, as she was requiring multiple transfusions. She was also experiencing intermittent mental status changes. Initial CT head/brain back in September 2024 was found to be normal, however a follow-up CT head wo contrast on 10/17 revealed a possibility of early and/or small acute/subacute ischemic infarct. On 02/22 patient had a CTA neck that showed heavily calcified plaque at the left carotid bifurcationwith 50 to 60% diameter stenosis. During the pre-operative work up on 03/12 her blood glucose levelwas noted to be in the 600s. She was seen at the ER, treated with regular insulin and discharged home. Additional blood work was notable for hemoglobin 10.0, hematocrit 29.5, sodium 128, anion gap 17, BUN 35.8, creatinine 2.08, eGFR 26, Today she underwent planned procedure and returned to [facility] post-operatively. Pulmonary team was consulted for critical care management. Patient was seen and examined at bedside this afternoon. She still moderately drowsy after anesthesia, follows commands intermittently. She is not able to fully par ticipate in review of systems, or provide any meaningful history. She is on 6L via simple mask, satting 94-96%. Appears to be in the mild respiratory distress. She is hemodynamically stable, but requiring Cardene infusion to keep her systolic blood pressure under 160 mmHg. No carotid bruits auscultated. Trace edema noted in bilateral upper and lower extremities. No family at bedside during the exam. Per chart review patient is a former cigarette smoker, she quit 6 years ago, however she still vapes daily. PAST MEDICAL HISTORY: Past Medical History: Diagnosis Date Anemia Asthma Blood transfusion without reported diagnosis 10/2024 Carotid artery stenosis Chronic kidney disease, stage 2 (mild) Chronic pain COPD (chronic obstructive pulmonary disease) (HCC) Coronary artery disease Diabetes mellitus (HCC) Fibromyalgia GERD (gastroesophageal reflux disease) Hyperlipidemia Hypertension Mitral valve prolapse Neuropathy Restless legs Seasonal allergies Wears dentures only wears top plate PAST SURGICAL HISTORY: Past Surgical History: Procedure Laterality Date APPENDECTOMY CAROTID ENDARTERECTOMY Right CARPAL TUNNEL RELEASE Right CHOLECYSTECTOMY DILATION AND CURETTAGE, DIAGNOSTIC / THERAPEUTIC EYE SURGERY Bilateral Cataract HYSTERECTOMY Intrathecal Pain Pump STENT PLACEMENT X3, 2 STOMACH- 1 ANKLE TONSILLECTOMY Allergies: Allergies Allergen Reactions Lidocaine Hives Latex Rash SOCIAL HISTORY: Social History Tobacco Use Smoking status: Former Current packs/day: 0.00 Types: Cigarettes Quit date: 2019 Years since quittin.9 Smokeless tobacco: Current Tobacco comments: Quit on 2019, Vapes daily Vaping Use Vaping status: Every Day Substances: Nicotine Substance Use Topics Alcohol use: Not Currently Drug use: Never FAMILY HISTORY: family history is not on file. Review of Systems Unable to perform ROS: Mental acuity Vital Signs Temp: [97.1 ??F (36.2 ??C)-98.2 ??F (36.8 ??C)] 97.5 ??F (36.4 ??C) Pulse: [71-90] 83 Resp: [13-17] 15 BP: (119-159)/(47-80) 137/65 Arterial Line BP 1: (121-216)/(35-52) 121/48 Current: Temp: 97.5 ??F (36.4 ??C) Pulse: 83 Resp: 15 BP: 137/65 SpO2: 93 % 24 Hour: BP Min: 119/65 Max: 159/67 Temp Min: 97.1 ??F (36.2 ??C) Max: 98.2 ??F (36.8 ??C) Pulse Min: 71 Max: 90 Resp Min: 13 Max: 17 SpO2 Min: 91 % Max: 98 % Height Min: 160 cm (5' 3 ) Max: 160 cm (5' 3 ) Weight Min: 68 kg (150 lb) Max: 73 kg (161 lb) Intake/Output: No intake/output data recorded. Physical Exam Constitutional: Appearance: She is well-developed. She is ill-appearing. Interventions: Face mask in place. HENT: Head: Normocephalic. Nose: Nose normal. Mouth/Throat: Pharynx: Oropharynx is clear. Eyes: Pupils: Pupils are equal, round, and reactive to light. Cardiovascular: Rate and Rhythm: Normal rate and regular rhythm. Pulses: Normal pulses. Heart sounds: Normal heart sounds. No murmur heard. Pulmonary: Effort: Respiratory distress present. Breath sounds: No wheezing or rhonchi. Abdominal: General: Bowel sounds are decreased. There is distension. Tenderness: There is no abdominal tenderness. Musculoskeletal: Cervical back: Normal range of motion. Right lower leg: Edema present. Left lower leg: Edema present. Skin: General: Skin is dry. Capillary Refill: Capillary refill takes less than 2 seconds. Coloration: Skin is pale. Comments: S/p left endarterectomy. Site is well-approximated. Neurological: Mental Status: She is lethargic. GCS: GCS eye subscore is 2. GCS verbal subscore is 3. GCS motor subscore is 6. Psychiatric: Comments: JOHN, drowsy Vent / O2 Management: LABS Results for orders placed or performed during the hospital encounter of 03/13/25 (from the past 24 hours) ABO/RH Confirmation/Retype Status: None Collection Time: 03/12/25 5:14 PM Result Value Ref Range RETYPE A Positive Glucose, Nova Meter Status: Abnormal Collection Time: 03/13/25 6:32 AM Result Value Ref Range POC-GLUCOSE 304 (H) 70 - 110 mg/dL Logistics Management Specialist [id number] Type and Screen Status: None Collection Time: 03/13/25 7:05 AM Result Value Ref Range HISTCHK HIST CHECK PERFORMED ABO/Rh Status: None Collection Time: 03/13/25 7:05 AM Result Value Ref Range ABO/Rh A POSITIVE Antibody Screen Status: None Collection Time: 03/13/25 7:05 AM Result Value Ref Range Antibody Screen Negative Glucose, Nova Meter Status: Abnormal Collection Time: 03/13/25 8:42 AM Result Value Ref Range POC-GLUCOSE 242 (H) 70 - 110 mg/dL Logistics Management Specialist [id number] Glucose, Nova Meter Status: Abnormal Collection Time: 03/13/25 10:41 AM Result Value Ref Range POC-GLUCOSE 173 (H) 70 - 110 mg/dL Logistics Management Specialist [id number] Glucose, Nova Meter Status: Abnormal Collection Time: 03/13/25 11:09 AM Result Value Ref Range POC-GLUCOSE 156 (H) 70 - 110 mg/dL Logistics Management Specialist [id number] Radiology CTA neck 02/22: FINDINGS: Aortic arch: Arch shows no significant [...] No evidence of significant vertebral artery stenosis. Microbiology: Microbiology Results (last 7 days) No results found for the last 168 hours. ASSESSMENT: Pulmonary: Respiratory insufficiently in setting of post anesthesia Requiring supplemental oxygen 6L simple algebraist cigarette smoker. Quit 6 years ago Vapes daily Neuro: S/p left endarterectomy with Dr. Quiles on 03/13 History of multiple syncopal episodes/blackouts in the past 6 months Right carotid endarterectomy in 2019 Drowsy Heme/Onc: Symptomatic anemia requiring transfusions in the past Cardiovascular: S/p left endarterectomy with Dr. Quiles on 03/13 History of hypertension Chronic mesenteric ischemia Renal artery stenosis ID: No s/s of infection Renal: CKD Pseudohyponatremia Endo: Hyperglycemia PLAN: Maintain sat >88%, currently pt on high flow nasal cannula 8 l ABG obtained/reviewed today, showed: pH 7.30, pCO2 47, pO2 71 Chest x-ray was done, reviewed independently, showed mild left lower lobe atelectasis DuoNebs. Sedation: None Hemodynamics: On Cardene to target systolic less than 140. A-fib RVR: On Cardizem drip. IV fluid: On LR at 100 cc/h per vascular team Antimicrobial therapy: None. Monitor white count and temperature curve. Monitor renal functions and electrolytes. Replace electrolytes to maintain serum potassium of 4.0 and serum magnesium of 2.0 with appropriatereplacement per protocol. Monitor I's and O's strictly. Monitor LFTs. Monitor H&H closely. And transfuse for hemoglobin of less than 7 g. Monitor white count and platelets. Nutrition: Currently n.p.o., postop, once patient is more awake, likely to resume oral diet Glycemic control to maintain blood sugars between 140-180. Bowel regimen: Docusate and senna as needed for constipation. GI prophylaxis: Protonix. DVT prophylaxis: Defer to vascular team. CODE STATUS: Prognosis: High risk of further decline. I Dr.Al Car, have personally evaluated the patient and performed a [id number] diagnostic evaluation on this patient; I have Obtained history, performed physical examination, reviewed laboratory studies. I have independently interpreted chest images. I have actively directed the medical care, formulated diagnosis, and the plan of care. Patient requires a high complexity of decision making for assessment. 31 minutes critical care time was spent. Voice employee relations assistant technology ([employer]) is used for dictation of this note and sound-alike words might be erroneously placed despite reviewing the note for accuracy. Errors in dictation may reflect use of voice recognition software and not all errors in employee relations assistant may have been detected prior to signing. CUTTER documented in this encounter OR Notes * Op Note - Eagle Quiles DO - 03/13/2025 9:09 AM EST Date: 03/13/2025 Procedures: ENDARTERECTOMY, CAROTID (Left) Diagnosis: Asymptomatic left internal carotid artery stenosis Indications: Dilia Chester is an 65 y.o. female with 80% stenosis of the left internal carotid artery without symptoms. The risks, benefits, and alternatives of the above procedure were discussed and the patient has elected to proceed. Surgeons: * Eagle Quiles - Primary Findings: Severe stenosis of the internal carotid artery ostia extending into the bulb greater than80% with dense calcific plaque and fibrotic plaque, multiphasic signals at case completion in the external carotid artery, carotid artery and internal carotid artery Procedure Details: The patient was seen in the preoperative area. The site of surgery was properly noted/marked if necessary per policy. The patient has been actively warmed in preoperative area. Preoperative antibiotics have been ordered and given within 1 hours of incision. Venous thrombosis prophylaxis are not indicated. The patient was brought back to the operating room in the supine on the operating room table. She was connected to hemodynamic monitoring. The anesthesia staff induced general anesthesia and intubated the patient. Nursing staff prepped and draped patient standard sterile fashion. A timeout was called indicating the proper patient and surgical site. I began by making oblique left neck incision with a 10 blade scalpel and dissected through the platysma with Bovie cautery upon entering the carotidsheath I transition to sharp dissection that jugular vein was dissected thoroughly the facial vein was identified ligated with 2-0 silk ties and clipped. The common carotid artery was identified systemic heparin was administered the common carotid artery external carotid artery and internal carotidartery were all dissected out sharply with Metzenbaum scissors. The superior thyroidal external carotid, carotid and internal carotid artery were encircled with Vesseloops. The internal carotid artery was clamped first and there is no changes on EEG after 1 minute the common carotid artery was thenclamped followed by the external carotid artery. An arteriotomy was made with 11 blade scalpel under the common carotid artery this was extended caudad and cephalad with Toro scissors there was dense calcific plaque noted at the ostia of the internal carotid artery extending into the carotid bulb there was fibrotic plaque noted at the common carotid artery this was all removed with a Donaldson elevator eversion endarterectomy was performed of the external carotid artery, the internal carotid artery endpoint had a small shelf which was tacked with 3x 7-0 tacking sutures. There was plaque that extended distally however was already at the belly of the digastric muscle and felt that I could not goany higher. I therefore placed the tacking sutures and elected to leave a small bit of calcium on the posterior wall. I then fashioned a bovine pericardial patch with running 5-0 Prolene this was flushed prior to completion. The external carotid artery and common carotid artery were released first 6-0 Prolene were used to repair any defects in the patch. Once hemostasis was achieved the internal carotid artery was opened there were no changes on EEG. Surgicel snow was placed over the anastomosis protamine was administered the wound was closed in 3 layers with 2-0 Vicryl followed by 3-0 Vicrylfollowed by 4-0 Monocryl. Anesthesia: General Estimated Blood Loss: 100 cc Total IV Fluids: per anesthesia Drains: * None in log * Specimens: Specimens (From admission, onward) None Complications: None * No complications entered in OR log * Disposition: PACU - hemodynamically stable. Condition: stable Attending Attestation: I was present and scrubbed for the entire procedure. CUTTER documented in this encounter Miscellaneous Notes * Plan of Care - Preethi Caban RN - 03/14/2025 6:43 PM EST Problem: Risk for Falls Goal: No falls during hospitalization Description: Patient will not fall during hospitalization. Outcome: Progressing Problem: Knowledge Deficit Goal: Knowledge - personal safety Description: Patient will verbalize understanding of fall prevention. Outcome: Progressing Problem: Pain Goal: Patient's pain/discomfort is manageable Description: Assess and monitor patient's pain using appropriate pain scale. Collaborate with interdisciplinary team and initiate plan and interventions as ordered. Re-assess patient's pain level after pain management intervention. Outcome: Progressing Problem: Safety Goal: Patient will be injury free during hospitalization Description: Assess and monitor vitals signs, neurological status including level of consciousness and orientation. Assess patient's risk for falls and implement fall prevention plan of care and interventions per hospital policy. Ensure arm band on, uncluttered walking paths in room, adequate room lighting, call light and overbed table within reach, bed in low position, wheels locked, side rails up per policy, and non-skid footwear provided. Outcome: Progressing Problem: Potential for Developing a Blood Clot Goal: Tissue perfusion is adequate - venous Description: Assess and monitor skin color and temperature, skin integrity, pulses, capillary refill, edema, pain in extremities, Homans' sign, labs (D- dimer), and diagnostic tests (ultrasound, CT scan, VQ scan). Monitor for signs and symptoms of deep vein thrombosis (swelling of calf/thigh, redness, pain, tenderness). Monitor for signs and symptoms of pulmonary embolism (dyspnea, tachypnea, tachycardia). Collaborate with interdisciplinary team and initiate plans and interventions as needed Outcome: Progressing Problem: Daily Care Goal: Daily care needs are met Description: Assess and monitor ability to perform self care and identify potential discharge needs. Outcome: Progressing Problem: Potential for Infection Goal: Remains infection free Description: Assess and monitor vital signs, skin (color, moisture, integrity, turgor), respiratorystatus, urinary and gastrointestinal status, and labs (WBC, cultures). Administer antibiotics and antipyretics as ordered. Ensure aseptic care of all intravenous lines, invasive tubes/drains and wounds. Monitor for signs and symptoms of infection (redness, warmth, discharge, increased body temperature). Wash hands properly before and after each patient care activity. Follow isolation guidelines per hospital protocol/policy. Collaborate with interdisciplinary team and initiate plan and interventions as ordered. Outcome: Progressing Problem: Anxiety Goal: Anxiety is at manageable level Description: Assess and monitor patient's anxiety level. Monitor for signs and symptoms of anxiety both physical and emotional (heart palpitations, chest pain, shortness of breath, headaches, nausea,feeling jumpy, restlessness, irritable, apprehensive). Collaborate with interdisciplinary team and initiate plan and interventions as ordered. Outcome: Progressing Problem: Inadequate Coping Goal: Demonstrates ability to cope effectively Description: Patient is able to verbalize feelings related to emotional state. Outcome: Progressing Problem: Progressive Mobility Goal: BMAT Level 4 - With 1-person assistance or mobility aid as needed (walker, cane, crutches): Outcome: Progressing CUTTER * Plan of Care - Leann Jose RN - 03/13/2025 11:44 PM EST Problem: Risk for Falls Goal: No falls during hospitalization Description: Patient will not fall during hospitalization. Outcome: Progressing Problem: Knowledge Deficit Goal: Knowledge - personal safety Description: Patient will verbalize understanding of fall prevention. Outcome: Progressing Problem: Pain Goal: Patient's pain/discomfort is manageable Description: Assess and monitor patient's pain using appropriate pain scale. Collaborate with interdisciplinary team and initiate plan and interventions as ordered. Re-assess patient's pain level after pain management intervention. Outcome: Progressing Problem: Safety Goal: Patient will be injury free during hospitalization Description: Assess and monitor vitals signs, neurological status including level of consciousness and orientation. Assess patient's risk for falls and implement fall prevention plan of care and interventions per hospital policy. Ensure arm band on, uncluttered walking paths in room, adequate room lighting, call light and overbed table within reach, bed in low position, wheels locked, side rails up per policy, and non-skid footwear provided. Outcome: Progressing Problem: Potential for Developing a Blood Clot Goal: Tissue perfusion is adequate - venous Description: Assess and monitor skin color and temperature, skin integrity, pulses, capillary refill, edema, pain in extremities, Homans' sign, labs (D- dimer), and diagnostic tests (ultrasound, CT scan, VQ scan). Monitor for signs and symptoms of deep vein thrombosis (swelling of calf/thigh, redness, pain, tenderness). Monitor for signs and symptoms of pulmonary embolism (dyspnea, tachypnea, tachycardia). Collaborate with interdisciplinary team and initiate plans and interventions as needed Outcome: Progressing Problem: Daily Care Goal: Daily care needs are met Description: Assess and monitor ability to perform self care and identify potential discharge needs. Outcome: Progressing Problem: Potential for Infection Goal: Remains infection free Description: Assess and monitor vital signs, skin (color, moisture, integrity, turgor), respiratorystatus, urinary and gastrointestinal status, and labs (WBC, cultures). Administer antibiotics and antipyretics as ordered. Ensure aseptic care of all intravenous lines, invasive tubes/drains and wounds. Monitor for signs and symptoms of infection (redness, warmth, discharge, increased body temperature). Wash hands properly before and after each patient care activity. Follow isolation guidelines per hospital protocol/policy. Collaborate with interdisciplinary team and initiate plan and interventions as ordered. Outcome: Progressing Problem: Psychosocial Needs Goal: Demonstrates ability to cope with hospitalization/illness Description: Assess and monitor patients ability to cope with his/her illness. Outcome: Progressing Goal: Collaborate with patient/family/caregiver to identify patient specific goals for this hospitalization Outcome: Progressing Problem: Anxiety Goal: Anxiety is at manageable level Description: Assess and monitor patient's anxiety level. Monitor for signs and symptoms of anxiety both physical and emotional (heart palpitations, chest pain, shortness of breath, headaches, nausea,feeling jumpy, restlessness, irritable, apprehensive). Collaborate with interdisciplinary team and initiate plan and interventions as ordered. Outcome: Progressing Problem: Inadequate Coping Goal: Demonstrates ability to cope effectively Description: Patient is able to verbalize feelings related to emotional state. Outcome: Progressing Goal: Verbalizes adaptive coping mechanisms Description: Able to verbalize adaptive coping mechanisms such as physical activity, distraction, and deep breathing exercises. Outcome: Progressing Goal: Verbalizes personal strengths Description: Spend time with the patient using empathy and active listening skills. Outcome: Progressing Problem: Progressive Mobility Goal: BMAT Level 1 - With full mechanical lifting assistance: Outcome: Progressing Goal: BMAT Level 2 - With 2-person and/or mechanical lifting assistance: Outcome: Progressing Goal: BMAT Level 3 - With 1 to 2-person and/or mechanical lifting assistance: Outcome: Progressing Goal: BMAT Level 4 - With 1-person assistance or mobility aid as needed (walker, cane, crutches): Outcome: Progressing Problem: Discharge Barriers Goal: Patient's discharge needs are met Description: Collaborate with interdisciplinary team and initiate plans and interventions as needed. Outcome: Progressing Problem: Knowledge Deficit Goal: Patient/family/caregiver demonstrates understanding of disease process, treatment plan, medications, and discharge instructions Description: Complete learning assessment and assess knowledge base. Outcome: Progressing Problem: Inadequate Airway Clearance Goal: Patient will maintain patent airway Description: Assess and monitor breath sounds, cough and sputum (if present), and intake/output. Collaborate with respiratory therapy to administer medications and treatments. Outcome: Progressing Goal: Patient will achieve/maintain normal respiratory rate/effort Description: Assess and monitor respiratory rate, effort, breathing pattern and oxygenation as ordered or per policy. Monitor patient for restlessness, anxiety, air hunger. Assess physical activity tolerance. Assess patient's smoking history and intervene per policy. Collaborate with interdisciplinary team and initiate plans and interventions as needed. Outcome: Progressing Problem: Inadequate Breathing Pattern Goal: Patient will maintain effective ventilation Description: Assess and monitor vital signs, respiratory status (to include respiratory rate, depth, effort, and breath sounds), oxygen saturation, oral mucosa, tongue, pain, and labs (ABGs). Collaborate with interdisciplinary team and initiate plans and interventions as needed. Outcome: Progressing Problem: Insufficient Fluid Volume Goal: Fluid and electrolyte balance are achieved/maintained Description: Assess and monitor vital signs (orthostatic vitals if applicable), fluid intake and output, urine color, labs, skin turgor, mucous membranes, mental status, and gastrointestinal system for nausea, vomiting and diarrhea. Monitor for signs and symptoms of hypovolemia (tachycardia, rapid breathing, decreased urine output, postural hypotension, confusion, syncope). Collaborate with interdisciplinary team and initiate plan and interventions as ordered. Outcome: Progressing Problem: Insufficient Nutritional Intake Goal: Patient's nutritional intake is adequate Description: Assess and monitor food intake and supplements, patient food preferences, nausea, vomiting, labs, oral cavity (gums, teeth, tongue, mucosa), proper denture fit, and cultural beliefs. Monitor for signs of hypoglycemia and hyperglycemia. Collaborate with interdisciplinary team and initiate plan and interventions as ordered. Outcome: Progressing Goal: Mobility/activity is maintained at optimum level for patient Description: Assess and monitor patient barriers to mobility and need for assistive/adaptive devices. Assess patient's emotional response to limitations. Collaborate with interdisciplinary team and initiate plans and interventions as ordered. Outcome: Progressing Problem: Inadequate Tissue Perfusion - Venous Goal: Tissue perfusion is adequate - venous Description: Assess and monitor skin color and temperature, skin integrity, pulses, capillary refill, edema, pain in extremities, Homans' sign, labs (D- dimer), and diagnostic tests (ultrasound, CT scan, VQ scan). Monitor for signs and symptoms of deep vein thrombosis (swelling of calf/thigh, redness, pain, tenderness). Monitor for signs and symptoms of pulmonary embolism (dyspnea, tachypnea, tachycardia). Collaborate with interdisciplinary team and initiate plans and interventions as needed. Outcome: Progressing Problem: Activity Intolerance/Impaired Mobility Goal: Mobility/activity is maintained at optimum level for patient Description: Assess and monitor patient barriers to mobility and need for assistive/adaptive devices. Assess patient's emotional response to limitations. Collaborate with interdisciplinary team and initiate plans and interventions as ordered. Outcome: Progressing Problem: Altered Body Image Goal: Verbalizes feelings about physical appearance Description: Assess the patient's feelings about their physical appearance, how it will effect their lifestyle, sexuality, and relationships with family and friends. Collaborate with interdisciplinary team and initiate plan and interventions as ordered. Outcome: Progressing Problem: Pain Management Goal: Patient return to pre procedure comfort Outcome: Progressing Problem: Hemodynamic Status Goal: Patient's vitals signs are stable Description: Assess and monitor patient's heart rate, rhythm, respiratory rate, peripheral pulses, capillary refill, color, body temperature, intake and output, labs and physical activity tolerance. Observe for signs of chest pain (note location, duration, severity, radiation and associated symptoms such as diaphoresis, nausea, indigestion). Monitor for signs and symptoms of heart failure (eg. shortness of breath, edema of feet/ankles/legs, rapid irregular heart rate, coughing, wheezing, white/pink blood tinged sputum, sudden weight gain, chest pain). Collaborate with interdisciplinary team and initiate plan and interventions as ordered. Outcome: Progressing Problem: In[place]qute temperature regulation Goal: Body temperature is within normal range Outcome: Progressing Problem: Safety Goal: Free from accidental physical injury Outcome: Progressing Goal: Free from abuse Outcome: Progressing Problem: Elimination Goal: Elimination patterns are normal or improving Description: Assess and monitor vital signs, gastrointestinal assessment to include bowel sounds, color, appearance, frequency, and amount of stool and emesis, abdominal distention and discomfort, intake and output, and labs. Collaborate with interdisciplinary team and initiate plan and interventions as ordered. Outcome: Progressing Problem: Increased Risk for /GI Compromise Goal: Optimal /GI status Outcome: Progressing Problem: Bleeding Precautions Goal: Excessive bleeding will be minimized Outcome: Progressing CUTTER * Plan of Care - Lisette Higgins RN - 03/13/2025 2:37 PM EST Problem: Safety Goal: Patient will be injury free during hospitalization Description: Assess and monitor vitals signs, neurological status including level of consciousness and orientation. Assess patient's risk for falls and implement fall prevention plan of care and interventions per hospital policy. Ensure arm band on, uncluttered walking paths in room, adequate room lighting, call light and overbed table within reach, bed in low position, wheels locked, side rails up per policy, and non-skid footwear provided. Intervention: Assess patient's risk for falls and implement fall prevention plan of care per policy Recent Flowsheet Documentation Taken 03/13/2025 1300 by Lisette Higgins RN History of Fallin Secondary Diagnosis: 15 Ambulatory Aids: 0 Intravenous Therapy/Intravenous Access: 20 Gait/Transferrin Mental Status: 0 Score: 35 Intervention: Provide and maintain safe environment Recent Flowsheet Documentation Taken 03/13/2025 1400 by Lisette Higgins RN Side Rails/Bed Safety: 3/4 Taken 03/13/2025 1300 by Lisette Higgins RN Side Rails/Bed Safety: 3/4 Intervention: Use appropriate transfer methods Recent Flowsheet Documentation Taken 03/13/2025 1400 by Lisette Higgins RN Level of Assistance: Modified independent, requires aide device or extra time Taken 03/13/2025 1300 by Lisette Higgins RN Level of Assistance: Modified independent, requires aide device or extra time Intervention: Ensure appropriate safety devices are available at the bedside Recent Flowsheet Documentation Taken 03/13/2025 1400 by Lisette Higgins RN Safety Equipment at Bedside: Airway BVM (Bag valve mask) O2 Regulator Suction Taken 03/13/2025 1300 by Lisette Higgins RN Safety Equipment at Bedside: Airway BVM (Bag valve mask) O2 Regulator Suction CUTTER documented in this encounter Plan of Treatment Not on file documented as of this encounter Procedures Procedure Name Priority Date/Time Associated Diagnosis Comments NOVA GLUCOSE POC Routine 03/16/2025 12:2 3 PM EST CBC W/ AUTO DIFF Routine 03/16/2025 7:36 AM EST COMPREHENSIVE METABOLIC PANEL Routine 03/16/2025 7:36 AM EST NOVA GLUCOSE POC Routine 03/16/2025 7:35 AM EST NOVA GLUCOSE POC Routine 03/15/2025 8:58 PM EST NOVA GLUCOSE POC Routine 03/15/2025 3:36 PM EST NOVA GLUCOSE POC Routine 03/15/2025 12:4 5 PM EST NOVA GLUCOSE POC Routine 03/15/2025 10:0 2 AM EST NOVA GLUCOSE POC Routine 03/15/2025 9:06 AM EST NOVA GLUCOSE POC Routine 03/15/2025 8:09 AM EST COMPREHENSIVE METABOLIC PANEL Routine 03/15/2025 8:03 AM EST NOVA GLUCOSE POC Routine 03/15/2025 7:00 AM EST NOVA GLUCOSE POC Routine 03/15/2025 6:07 AM EST NOVA GLUCOSE POC Routine 03/15/2025 5:00 AM EST NOVA GLUCOSE POC Routine 03/15/2025 4:03 AM EST NOVA GLUCOSE POC Routine 03/15/2025 2:54 AM EST NOVA GLUCOSE POC Routine 03/15/2025 2:04 AM EST NOVA GLUCOSE POC Routine 03/15/2025 1:04 AM EST NOVA GLUCOSE POC Routine 03/15/2025 12:0 3 AM EST NOVA GLUCOSE POC Routine 03/14/2025 11:0 3 PM EST NOVA GLUCOSE POC Routine 03/14/2025 10:1 3 PM EST NOVA GLUCOSE POC Routine 03/14/2025 9:02 PM EST NOVA GLUCOSE POC Routine 03/14/2025 8:05 PM EST NOVA GLUCOSE POC Routine 03/14/2025 6:59 PM EST NOVA GLUCOSE POC Routine 03/14/2025 6:13 PM EST NOVA GLUCOSE POC Routine 03/14/2025 5:13 PM EST NOVA GLUCOSE POC Routine 03/14/2025 4:12 PM EST NOVA GLUCOSE POC Routine 03/14/2025 4:09 PM EST NOVA GLUCOSE POC Routine 03/14/2025 11:1 7 AM EST NOVA GLUCOSE POC Routine 03/14/2025 6:31 AM EST [facility] CBC SCAN Routine 03/14/2025 3:20 AM EST CBC W/ AUTO DIFF Routine 03/14/2025 3:20 AM EST CALCIUM, IONIZED Routine 03/14/2025 3:20 AM EST MAGNESIUM Routine 03/14/2025 3:20 AM EST COMPREHENSIVE METABOLIC PANEL Routine 03/14/2025 3:20 AM EST BLOOD GAS, ARTERIAL Routine 03/13/2025 1 1:25 PM EST NOVA GLUCOSE POC Routine 03/13/2025 11:2 4 PM EST CBC W/ AUTO DIFF DEONTE 03/13/2025 9:27 PM EST CALCIUM, IONIZED DEONTE 03/13/2025 9:27 PM EST PHOSPHORUS EDONTE 03/13/2025 9:27 PM EST MAGNESIUM Routine 03/13/2025 9:27 PM EST COMPREHENSIVE METABOLIC PANEL Routine 03/13/2025 9:27 PM EST NOVA GLUCOSE POC Routine 03/13/2025 9:25 PM EST XR CHEST AP PORTABLE DEONTE 03/13/2025 8:26 PM EST BLOOD GAS, ARTERIAL STAT 03/13/2025 8 :13 PM EST NOVA GLUCOSE POC Routine 03/13/2025 4:29 PM EST NOVA GLUCOSE POC Routine 03/13/2025 1:09 PM EST NOVA GLUCOSE POC Routine 03/13/2025 11:0 9 AM EST NOVA GLUCOSE POC Routine 03/13/2025 10:4 1 AM EST TISSUE EXAM ([place] AR) AP Routine 03/13/2025 9 :46 AM EST Medical history unknown SD TEAEC W/PATCH GRF CAROTID VERTB SUBCLAV NECK INC 03/13/2025 8:50 AM EST Medical history unknown NOVA GLUCOSE POC Routine 03/13/2025 8:42 AM EST ANTIBODY SCREEN - ABSCPEG ([place] BKR) Routine 03/13/2025 7:05 AM EST ABO/RH - ABORHTUBE ([place] BKR) Routine 03/13/2025 7:05 AM EST TYPE AND SCREEN ([place] BKR) STAT 03/13/2025 7:05 AM EST NOVA GLUCOSE POC Routine 03/13/2025 6:32 AM EST ABO/RH CONFIRMATION/RETYPE ([place] BKR) Routine 03/12/2025 5:14 PM EST documented in this encounter Results * (ABNORMAL) Glucose, Nova Meter (03/16/2025 12:23 PM EST) [facility] POC-GLUCOSE 198(H) 70 - 110 mg/dL 03/16/2025 12:26 PM EST [facility] Comment:In the event of poor peripheral blood flow, venous or arterial blood should be used due to the potential of erroneous results. Logistics Management Specialist [phone] 03/16/2025 12:26 PM [facility] Blood WHOLE BLOOD / Unknown 03/16/2025 12:23 PM EST 03/16/2025 12:26 PM EST Narrative [facility] - 03/16/2025 12:26 PM EST Notified RN/MD us Eagle Iltis DO POINT OF CARE TEST ORDERABLES Fi nal Result [facility] [address] [phone] * (ABNORMAL) CBC with Automated Diff (03/16/2025 7:36 AM EST) WBC 8.1 4.0 - 10.0 K/ L 03/16/2025 7:45 AM [facility] RBC 2.79(L) 3.93 - 5.22 M/ L 03/16/2025 7:45 AM [facility] Hemoglobin 8.2(L) 11.2 - 15.7 GM/DL 03/16/2025 7:45 AM [facility] Hematocrit 24.9(L) 34.1 - 44.9 % 03/16/2025 7:45 AM [facility] MCV 89 79 - 95 fL 03/16/2025 7:45 AM [facility] MCH 29.4 25.6 - 32.2 pg 03/16/2025 7:45 AM [facility] MCHC 32.9 32.2 - 35.5 GM/DL 03/16/2025 7:45 AM [facility] RDW 13.2 11.7 - 14.4 % 03/16/2025 7:45 AM [facility] Platelets 187 140 - 375 K/CU MM 03/16/2025 7:45 AM [facility] MPV 9.3(L) 9.4 - 12.3 fL 03/16/2025 7:45 AM [facility] % Neutros 77(H) 34 - 71 % 03/16/2025 7:45 AM [facility] % Lymphs 11(L) 19 - 52 % 03/16/2025 7:45 AM [facility] % Monos 9 5 - 13 % 03/16/2025 7:45 AM [facility] % Eos 2.6 1.0 - 6.0 % 03/16/2025 7:45 AM [facility] % Baso 0 0 - 1 % 03/16/2025 7:45 AM [facility] NRBC Absolute <0.01 0 - 0.012 K/ul 03/16/2025 7:45 AM [facility] # Neutros 6.23(H) 1.56 - 6.13 K/ L 03/16/2025 7:45 AM [facility] # Lymphs 0.87(L) 1.18 - 3.74 K/ L 03/16/2025 7:45 AM [facility] # Monos 0.74 0.24 - 0.86 K/ L 03/16/2025 7:45 AM [facility] # Eos 0.21 0.04 - 0.36 K/ L 03/16/2025 7:45 AM [facility] # Baso <0.03 0.01 - 0.08 K/ L 03/16/2025 7:45 AM [facility] % Imm Grans 0.50(H) 0.01 - 0.43 % 03/16/2025 7:45 AM [facility] # IG 0.04(H) 0.00 - 0.03 K/uL 03/16/2025 7:45 AM [facility] Blood Venipuncture / Unknown 03/16/2025 7:36 AM EST 03/16/2025 7:41 AM [facility] - 03/16/2025 7:45 AM EST When CBC w/ Auto Diff is ordered the lab will add a Manual Differential as a quality check at no additional charge if: Lymphocytes greater than seventy five percent with normal or increased WBC Monocytes greater than Fifteen percent Basophil greater than four percent Bands >10% or several immature myeloids are seen on scan Blast? Flag noted Atypical Lymph flag noted us Silvia Mendez Dliw LAB BLOOD ORDERABLES Final Resu lt [facility] [address] [place] [id number], [facility] [phone] * (ABNORMAL) Comprehensive metabolic panel (03/16/2025 7:36 AM EST) Sodium 139 136 - 145 meq/L 03/16/2025 7:58 AM [facility] Potassium 3.7 3.4 - 5.1 meq/L 03/16/2025 7:58 AM [facility] Chloride 104 98 - 112 meq/L 03/16/2025 7:58 AM [facility] CO2 24 22 - 29 meq/L 03/16/2025 7:58 AM [facility] Calcium 8.9 8.4 - 10.2 mg/dL 03/16/2025 7:58 AM [facility] Glucose 174(H) 82 - 115 mg/dL 03/16/2025 7:58 AM [facility] BUN 31.0(H) 9.8 - 20.1 mg/dL 03/16/2025 7:58 AM [facility] Creatinine 1.47(H) 0.50 - 1.20 mg/dL 03/16/2025 7:58 AM [facility] BUN/Creatinine 21(H) 8 - 20 03/16/2025 7:58 AM [facility] eGFR (mL/min/1.73m2) 40(L) >=60 mL/min/1.7 3m2 03/16/2025 7:58 AM [facility] Comment:ESTIMATED GFR IS NOT ACCURATE CREATININE CLEARANCE IN PREDICTING GLOMERULAR FILTRATION RATE. ESTIMATED GFR IS NOT APPLICABLE FOR DIALYSIS PATIENTS. Albumin 3.1(L) 3.5 - 5.0 g/dL 03/16/2025 7:58 AM [facility] Alkaline Phosphatase 85 40 - 150 U/L 03/16/2025 7:58 AM [facility] ALT 12 <55 U/L 03/16/2025 7:58 AM [facility] AST 34 5 - 34 U/L 03/16/2025 7:58 AM [facility] Total Bilirubin 0.4 0.3 - 1.2 mg/dL 03/16/2025 7:58 AM [facility] Protein, Total 6.6 6.4 - 8.3 g/dL 03/16/2025 7:58 AM [facility] Globulin 3.5 2.5 - 4.1 g/dL 03/16/2025 7:58 AM [facility] Anion Gap 15(H) 4 - 12 03/16/2025 7:58 AM [facility] A/G Ratio 0.9 0.7 - 1.9 03/16/2025 7:58 AM [facility] Osmolality Calc 288.3 mOsm/kg 7:58 AM [facility] Blood Venipuncture / Unknown 03/16/2025 7:36 AM EST 03/16/2025 7:41 AM [facility] - 03/16/2025 7:58 AM EST Specimen slightly hemolyzed us Silvia Barry MD LAB BLOOD ORDERABLES Final Resu lt [facility] [address] [place] [address] * (ABNORMAL) Glucose, Nova Meter (03/16/2025 7:35 AM EST) POC-GLUCOSE 160(H) 70 - 110 mg/dL 03/16/2025 7:39 AM [facility] Comment:In the event of poor peripheral blood flow, venous or arterial blood should be used due to the potential of erroneous results. Logistics Management Specialist [phone] 03/16/2025 7:39 AM [facility] Blood WHOLE BLOOD / Unknown 03/16/2025 7:35 AM EST 03/16/2025 7:39 AM EST [facility] - 03/16/2025 7:39 AM EST Notified RN/MD us Eagle Iltis DO POINT OF CARE TEST ORDERABLES Fi nal Result Performing Organization Address [facility] Co de Phone Number [facility] [address] [phone] * (ABNORMAL) Glucose, Nova Meter (03/15/2025 8:58 PM EST) POC-GLUCOSE 183(H) 70 - 110 mg/dL 03/15/2025 9:01 PM EST [facility] Comment:In the event of poor peripheral blood flow, venous or arterial blood should be used due to the potential of erroneous results. Logistics Management Specialist [phone] 03/15/2025 9:01 PM EST [facility] Blood WHOLE BLOOD / Unknown 03/15/2025 8:58 PM EST 03/15/2025 9:01 PM EST us [email or web address] DO POINT OF CARE TEST ORDERABLES Fi nal Result Performing Organization Address [facility] Co de Phone Number [facility] [address] [phone] * (ABNORMAL) Glucose, Nova Meter (03/15/2025 3:36 PM EST) POC-GLUCOSE 225(H) 70 - 110 mg/dL 03/15/2025 3:39 PM EST [facility] Comment:In the event of poor peripheral blood flow, venous or arterial blood should be used due to the potential of erroneous results. Logistics Management Specialist [phone] 03/15/2025 3:39 PM EST [facility] Blood WHOLE BLOOD / Unknown 03/15/2025 3:36 PM EST 03/15/2025 3:39 PM EST Narrative [facility] - 03/15/2025 3:39 PM EST Notified RN/MD us Eagle Iltis DO POINT OF CARE TEST ORDERABLES Fi nal Result Performing Organization Address [facility] Co de Phone Number [facility] [address] [phone] * (ABNORMAL) Glucose, Nova Meter (03/15/2025 12:45 PM EST) POC-GLUCOSE 197(H) 70 - 110 mg/dL 03/15/2025 12:48 PM EST [facility] Comment:In the event of poor peripheral blood flow, venous or arterial blood should be used due to the potential of erroneous results. Logistics Management Specialist [phone] 03/15/2025 12:48 PM EST [facility] Blood WHOLE BLOOD / Unknown 03/15/2025 12:45 PM EST 03/15/2025 12:48 PM EST us Eagle Iltis DO POINT OF CARE TEST ORDERABLES Fi nal Result Performing Organization Address [facility]/ZIP Co de Phone Number [facility] [address] [phone] * (ABNORMAL) Glucose, Nova Meter (03/15/2025 10:02 AM EST) POC-GLUCOSE 170(H) 70 - 110 mg/dL 03/15/2025 10:05 AM EST [facility] Comment:In the event of poor peripheral blood flow, venous or arterial blood should be used due to the potential of erroneous results. Logistics Management Specialist [phone] 03/15/2025 10:05 AM EST [facility] Blood WHOLE BLOOD / Unknown 03/15/2025 10:02 AM EST 03/15/2025 10:05 AM EST Narrative [facility] - 03/15/2025 10:05 AM EST Notified RN/MD us Eagle Iltis DO POINT OF CARE TEST ORDERABLES Fi nal Result [facility] [address] [phone] * (ABNORMAL) Glucose, Nova Meter (03/15/2025 9:06 AM EST) POC-GLUCOSE 188(H) 70 - 110 mg/dL 03/15/2025 9:08 AM EST [facility] Comment:In the event of poor peripheral blood flow, venous or arterial blood should be used due to the potential of erroneous results. Logistics Management Specialist [phone] 03/15/2025 9:08 AM EST [facility] Blood WHOLE BLOOD / Unknown 03/15/2025 9:06 AM EST 03/15/2025 9:08 AM EST Narrative [facility] - 03/15/2025 9:08 AM EST Notified RN/MD [facility] POINT OF CARE TEST ORDERABLES Fi nal Result Performing Organization Address [facility] Phone Number [facility] [address] [phone] * (ABNORMAL) Glucose, Nova Meter (03/15/2025 8:09 AM EST) Pathologist [facility] [place] POC-GLUCOSE 142(H) 70 - 110 mg/dL 03/15/2025 8:11 AM EST [facility] Comment:In the event of poor peripheral blood flow, venous or arterial blood should be used due to the potential of erroneous results. Logistics Management Specialist [phone] 03/15/2025 8:11 AM EST [facility] Blood WHOLE BLOOD / Unknown 03/15/2025 8:09 AM EST 03/15/2025 8:11 AM EST Narrative [facility] - 03/15/2025 8:11 AM EST Notified RN/MD Eagle Quiles DO POINT OF CARE TEST ORDERABLES Fi nal Result Performing Organization Address [facility] Co de Phone Number [facility] [address] [phone] * (ABNORMAL) Comprehensive metabolic panel (03/15/2025 8:03 AM EST) Sodium 141 136 - 145 meq/L 03/15/2025 8:36 AM EST [facility] Potassium 3.8 3.4 - 5.1 meq/L 03/15/2025 8:36 AM EST [facility] Chloride 107 98 - 112 meq/L 03/15/2025 8:36 AM [facility] CO2 23 22 - 29 meq/L 03/15/2025 8:36 AM [facility] Calcium 8.9 8.4 - 10.2 mg/dL 03/15/2025 8:36 AM [facility] Glucose 144(H) 82 - 115 mg/dL 03/15/2025 8:36 AM [facility] BUN 38.0(H) 9.8 - 20.1 mg/dL 03/15/2025 8:36 AM [facility] Creatinine 1.51(H) 0.50 - 1.20 mg/dL 03/15/2025 8:36 AM [facility] BUN/Creatinine 25(H) 8 - 20 03/15/2025 8:36 AM [facility] eGFR (mL/min/1.73m2) 38(L) >=60 mL/min/1.7 3m2 03/15/2025 8:36 AM [facility] Comment:ESTIMATED GFR IS NOT ACCURATE CREATININE CLEARANCE IN PREDICTING GLOMERULAR FILTRATION RATE. ESTIMATED GFR IS NOT APPLICABLE FOR DIALYSIS PATIENTS. Albumin 3.4(L) 3.5 - 5.0 g/dL 03/15/2025 8:36 AM [facility] Alkaline Phosphatase 96 40 - 150 U/L 03/15/2025 8:36 AM [facility] ALT 14 <55 U/L 03/15/2025 8:36 AM [facility] AST 30 5 - 34 U/L 03/15/2025 8:36 AM [facility] Total Bilirubin 0.3 0.3 - 1.2 mg/dL 03/15/2025 8:36 AM [facility] Protein, Total 6.8 6.4 - 8.3 g/dL 03/15/2025 8:36 AM [facility] Globulin 3.4 2.5 - 4.1 g/dL 03/15/2025 8:36 AM [facility] Anion Gap 15(H) 4 - 12 03/15/2025 8:36 AM [facility] A/G Ratio 1.0 0.7 - 1.9 03/15/2025 8:36 AM [facility] Osmolality Calc 292.8 mOsm/kg 8:36 AM EST [facility] Blood Venipuncture / Unknown 03/15/2025 8:03 AM EST 03/15/2025 8:14 AM EST us Silvia Barry MD LAB BLOOD ORDERABLES Final Resu lt Performing Organization Address [facility] Co fl Phone Number [facility] [address] [phone] * (ABNORMAL) Glucose, Nova Meter (03/15/2025 7:00 AM EST) POC-GLUCOSE 114(H) 70 - 110 mg/dL 03/15/2025 7:03 AM [facility] Comment:In the event of poor peripheral blood flow, venous or arterial blood should be used due to the potential of erroneous results. Logistics Management Specialist [phone] 03/15/2025 7:03 AM EST [facility] Blood WHOLE BLOOD / Unknown 03/15/2025 7:00 AM EST 03/15/2025 7:03 AM EST us Eagle Quiles DO POINT OF CARE TEST ORDERABLES Fi nal Result Performing Organization Address [facility] Phone Number [facility] [address] [phone] * (ABNORMAL) Glucose, Nova Meter (03/15/2025 6:07 AM EST) POC-GLUCOSE 124(H) 70 - 110 mg/dL 03/15/2025 6:10 AM EST [facility] Comment:In the event of poor peripheral blood flow, venous or arterial blood should be used due to the potential of erroneous results. Logistics Management Specialist [phone] 03/15/2025 6:10 AM EST [facility] Blood WHOLE BLOOD / Unknown 03/15/2025 6:07 AM EST 03/15/2025 6:10 AM EST us Eagle Iltis DO POINT OF CARE TEST ORDERABLES Fi nal Result Performing Organization Address City/[facility]/ZIP Co de Phone Number [facility] [address] [place] [address], [facility] [phone] * (ABNORMAL) Glucose, Nova Meter (03/15/2025 5:00 AM EST) POC-GLUCOSE 161(H) 70 - 110 mg/dL 03/15/2025 5:03 AM EST [facility] Comment:In the event of poor peripheral blood flow, venous or arterial blood should be used due to the potential of erroneous results. Logistics Management Specialist [phone] 03/15/2025 5:03 AM EST [facility] Blood WHOLE BLOOD / Unknown 03/15/2025 5:00 AM EST 03/15/2025 5:03 AM EST us Eagle Ruddytis DO POINT OF CARE TEST ORDERABLES Fi nal Result Performing Organization Address [facility] Co de Phone Number [facility] [address] [phone] * (ABNORMAL) Glucose, Nova Meter (03/15/2025 4:03 AM EST) POC-GLUCOSE 210(H) 70 - 110 mg/dL 03/15/2025 4:06 AM EST [facility] Comment:In the event of poor peripheral blood flow, venous or arterial blood should be used due to the potential of erroneous results. Logistics Management Specialist [phone] 03/15/2025 4:06 AM EST [facility] Blood WHOLE BLOOD / Unknown 03/15/2025 4:03 AM EST 03/15/2025 4:06 AM EST us Eagle Iltis DO POINT OF CARE TEST ORDERABLES Fi nal Result Performing Organization Address City/[facility]/ZIP Co de Phone Number [facility] [address] [place] [address], [facility] [phone] * (ABNORMAL) Glucose, Nova Meter (03/15/2025 2:54 AM EST) POC-GLUCOSE 235(H) 70 - 110 mg/dL 03/15/2025 2:57 AM EST [facility] Comment:In the event of poor peripheral blood flow, venous or arterial blood should be used due to the potential of erroneous results. Logistics Management Specialist [phone] 03/15/2025 2:57 AM EST [facility] Blood WHOLE BLOOD / Unknown 03/15/2025 2:54 AM EST 03/15/2025 2:57 AM EST us Eagle Iltis DO POINT OF CARE TEST ORDERABLES Fi nal Result Performing Organization Address [facility]/ZIP Co de Phone Number [facility] [address] [phone] * (ABNORMAL) Glucose, Nova Meter (03/15/2025 2:04 AM EST) POC-GLUCOSE 179(H) 70 - 110 mg/dL 03/15/2025 2:07 AM [facility] Comment:In the event of poor peripheral blood flow, venous or arterial blood should be used due to the potential of erroneous results. Logistics Management Specialist [phone] 03/15/2025 2:07 AM EST [facility] Blood WHOLE BLOOD / Unknown 03/15/2025 2:04 AM EST 03/15/2025 2:07 AM EST us Eagle Etta DO POINT OF CARE TEST ORDERABLES Fi nal Result Performing Organization Address City/[facility]/ZIP Co de Phone Number [facility] [address] [phone] * (ABNORMAL) Glucose, Nova Meter (03/15/2025 1:04 AM EST) POC-GLUCOSE 137(H) 70 - 110 mg/dL 03/15/2025 1:08 AM [facility] Comment:In the event of poor peripheral blood flow, venous or arterial blood should be used due to the potential of erroneous results. Logistics Management Specialist [phone] 03/15/2025 1:08 AM EST [facility] Blood WHOLE BLOOD / Unknown 03/15/2025 1:04 AM EST 03/15/2025 1:08 AM EST us Eagle Iltis DO POINT OF CARE TEST ORDERABLES Fi nal Result Performing Organization Address City/[facility] Co de Phone Number [facility] [address] [phone] * (ABNORMAL) Glucose, Nova Meter (03/15/2025 12:03 AM EST) POC-GLUCOSE 169(H) 70 - 110 mg/dL 03/15/2025 12:06 AM EST [facility] Comment:In the event of poor peripheral blood flow, venous or arterial blood should be used due to the potential of erroneous results. Logistics Management Specialist [phone] 03/15/2025 12:06 AM EST [facility] Blood WHOLE BLOOD / Unknown 03/15/2025 12:03 AM EST 03/15/2025 12:06 AM EST us Eagle Etta DO POINT OF CARE TEST ORDERABLES Fi nal Result Performing Organization Address [facility] de Phone Number [facility] [address] [phone] * (ABNORMAL) Glucose, Nova Meter (03/14/2025 11:03 PM EST) POC-GLUCOSE 141(H) 70 - 110 mg/dL 03/14/2025 11:07 PM EST [facility] Comment:In the event of poor peripheral blood flow, venous or arterial blood should be used due to the potential of erroneous results. Logistics Management Specialist [phone] 03/14/2025 11:07 PM EST [facility] Blood WHOLE BLOOD / Unknown 03/14/2025 11:03 PM EST 03/14/2025 11:07 PM EST us Eagle Iltis DO POINT OF CARE TEST ORDERABLES Fi nal Result Performing Organization Address [facility]/ZIP Co de Phone Number [facility] [address] [phone] * (ABNORMAL) Glucose, Nova Meter (03/14/2025 10:13 PM EST) POC-GLUCOSE 189(H) 70 - 110 mg/dL 03/14/2025 10:16 PM EST [facility] Comment:In the event of poor peripheral blood flow, venous or arterial blood should be used due to the potential of erroneous results. Logistics Management Specialist [phone] 03/14/2025 10:16 PM EST [facility] Blood WHOLE BLOOD / Unknown 03/14/2025 10:13 PM EST 03/14/2025 10:16 PM EST us Eagle Iltis DO POINT OF CARE TEST ORDERABLES Fi nal Result Performing Organization Address [facility] Co de Phone Number [facility] [address] [phone] * (ABNORMAL) Glucose, Nova Meter (03/14/2025 9:02 PM EST) POC-GLUCOSE 262(H) 70 - 110 mg/dL 03/14/2025 9:06 PM EST [facility] Comment:In the event of poor peripheral blood flow, venous or arterial blood should be used due to the potential of erroneous results. Logistics Management Specialist [phone] 03/14/2025 9:06 PM EST [facility] Blood WHOLE BLOOD / Unknown 03/14/2025 9:02 PM EST 03/14/2025 9:06 PM EST us Eagle Iltis DO POINT OF CARE TEST ORDERABLES Fi nal Result Performing Organization Address [facility] Co de Phone Number [facility] [address] [phone] * (ABNORMAL) Glucose, Nova Meter (03/14/2025 8:05 PM EST) POC-GLUCOSE 364(H) 70 - 110 mg/dL 03/14/2025 8:08 PM EST [facility] Comment:In the event of poor peripheral blood flow, venous or arterial blood should be used due to the potential of erroneous results. Logistics Management Specialist [phone] 03/14/2025 8:08 PM EST [facility] Blood WHOLE BLOOD / Unknown 03/14/2025 8:05 PM EST 03/14/2025 8:08 PM EST [facility] DO POINT OF CARE TEST ORDERABLES Fi nal Result Performing Organization Address [facility] de Phone Number [facility] [address] [phone] * (ABNORMAL) Glucose, Nova Meter (03/14/2025 6:59 PM EST) POC-GLUCOSE 403(H) 70 - 110 mg/dL 03/14/2025 7:02 PM [facility] Comment:In the event of poor peripheral blood flow, venous or arterial blood should be used due to the potential of erroneous results. Logistics Management Specialist [phone] 03/14/2025 7:02 PM EST [facility] Blood WHOLE BLOOD / Unknown 03/14/2025 6:59 PM EST 03/14/2025 7:02 PM EST Narrative [facility] - 03/14/2025 7:02 PM EST Notified RN/MD Eagle Quiles DO POINT OF CARE TEST ORDERABLES Fi nal Result Performing Organization Address [facility] de Phone Number [facility] [address] [phone] * (ABNORMAL) Glucose, Nova Meter (03/14/2025 6:13 PM EST) POC-GLUCOSE 458(HH) 70 - 110 mg/dL 03/14/2025 6:16 PM EST [facility] Comment:In the event of poor peripheral blood flow, venous or arterial blood should be used due to the potential of erroneous results. Logistics Management Specialist [phone] 03/14/2025 6:16 PM EST [facility] Blood WHOLE BLOOD / Unknown 03/14/2025 6:13 PM EST 03/14/2025 6:16 PM EST Narrative [facility] - 03/14/2025 6:16 PM EST Notified RN/MD us Eagle Iltis DO POINT OF CARE TEST ORDERABLES Fi nal Result Performing Organization Address [facility] de Phone Number [facility] [address] [phone] * (ABNORMAL) Glucose, Nova Meter (03/14/2025 5:13 PM EST) POC-GLUCOSE 496(HH) 70 - 110 mg/dL 03/14/2025 5:16 PM EST [facility] Comment:In the event of poor peripheral blood flow, venous or arterial blood should be used due to the potential of erroneous results. Logistics Management Specialist [phone] 03/14/2025 5:16 PM EST [facility] Blood WHOLE BLOOD / Unknown 03/14/2025 5:13 PM EST 03/14/2025 5:16 PM EST Narrative [facility] - 03/14/2025 5:16 PM EST Notified RN/MD us Eagle Etta DO POINT OF CARE TEST ORDERABLES Fi nal Result Performing Organization Address [facility] Co de Phone Number [facility] [address] [phone] * (ABNORMAL) Glucose, Nova Meter (03/14/2025 4:12 PM EST) POC-GLUCOSE 498(HH) 70 - 110 mg/dL 03/14/2025 4:15 PM EST [facility] Comment:In the event of poor peripheral blood flow, venous or arterial blood should be used due to the potential of erroneous results. Logistics Management Specialist [phone] 03/14/2025 4:15 PM EST [facility] Blood WHOLE BLOOD / Unknown 03/14/2025 4:12 PM EST 03/14/2025 4:15 PM EST Narrative [facility] - 03/14/2025 4:15 PM EST Notified RN/MD us Eagle Iltis DO POINT OF CARE TEST ORDERABLES Fi nal Result Performing Organization Address [facility] Phone Number [facility] [address] [place] [address], [facility] [phone] * (ABNORMAL) Glucose, Nova Meter (03/14/2025 4:09 PM EST) POC-GLUCOSE 462(HH) 70 - 110 mg/dL 03/14/2025 4:12 PM EST [facility] Comment:In the event of poor peripheral blood flow, venous or arterial blood should be used due to the potential of erroneous results. Logistics Management Specialist [phone] 03/14/2025 4:12 PM EST [facility] Blood WHOLE BLOOD / Unknown 03/14/2025 4:09 PM EST 03/14/2025 4:12 PM EST Narrative [facility] - 03/14/2025 4:12 PM EST Notified RN/MD us Eagle Quiles DO POINT OF CARE TEST ORDERABLES Fi nal Result Performing Organization Address [facility] Phone Number [facility] 1 [place] [address], [facility] [phone] * (ABNORMAL) Glucose, Nova Meter (03/14/2025 11:17 AM EST) POC-GLUCOSE 401(H) 70 - 110 mg/dL 03/14/2025 11:20 AM EST [facility] Comment:In the event of poor peripheral blood flow, venous or arterial blood should be used due to the potential of erroneous results. Logistics Management Specialist [phone] 03/14/2025 11:20 AM EST [facility] Blood WHOLE BLOOD / Unknown 03/14/2025 11:17 AM EST 03/14/2025 11:20 AM EST Narrative [facility] - 03/14/2025 11:20 AM EST Notified RN/MD us Eagle Iltis DO POINT OF CARE TEST ORDERABLES Fi nal Result Performing Organization Address [facility] Co de Phone Number [facility] 1 [place] [address], [facility] [phone] * (ABNORMAL) Glucose, Nova Meter (03/14/2025 6:31 AM EST) POC-GLUCOSE 155(H) 70 - 110 mg/dL 03/14/2025 6:34 AM EST [facility] Comment:In the event of poor peripheral blood flow, venous or arterial blood should be used due to the potential of erroneous results. Logistics Management Specialist [phone] 03/14/2025 6:34 AM EST [facility] Blood WHOLE BLOOD / Unknown 03/14/2025 6:31 AM EST 03/14/2025 6:34 AM EST us Eagle Iltis DO POINT OF CARE TEST ORDERABLES Fi nal Result Performing Organization Address [facility] de Phone Number [facility] [address] [phone] * (ABNORMAL) CBC Scan (03/14/2025 3:20 AM EST) Pathologist [facility] [place] Platelet Estimate Adequate Adequate 025 4:12 AM EST [facility] RBC Morphology abnormal(A) Normal 4:12 AM EST [facility] Anisocytosis 1+ 03/14/2025 4:12 AM EST [facility] Hypochromia 1+ 03/14/2025 4:12 AM EST [facility] Polychromasia 1+ 03/14/2025 4:12 AM EST [facility] Blood Venipuncture / Unknown 03/14/2025 3:20 AM EST 03/14/2025 3:25 AM EST us Eagle Iltis DO LAB BLOOD ORDERABLES Final Resul t Performing Organization Address [facility]/ZIP Co de Phone Number [facility] [address] [phone] * CALCIUM Ionized (03/14/2025 3:20 AM EST) Calcium Ionized 1.21 1.12 - 1.32 mmol/L 03/14/2025 3:32 AM EST [facility] Blood Venipuncture / Unknown 03/14/2025 3:20 AM EST 03/14/2025 3:25 AM EST [facility] BLOOD ORDERABLES Final Resul t Performing Organization Address [facility] Co de Phone Number [facility] [address] [phone] * Magnesium (03/14/2025 3:20 AM EST) Pathologist [facility] [place] Magnesium 2.4 1.6 - 2.6 mg/dL 03/14/2025 3:52 AM EST [facility] Blood Venipuncture / Unknown 03/14/2025 3:20 AM EST 03/14/2025 3:25 AM EST [email or web address] LAB BLOOD ORDERABLES Final Resul t Performing Organization Address [facility] Co de Phone Number [facility] [address] [phone] * (ABNORMAL) Comprehensive metabolic panel (03/14/2025 3:20 AM EST) Pathologist [facility] [place] Sodium 139 136 - 145 meq/L 03/14/2025 3:52 AM EST [facility] Potassium 4.2 3.4 - 5.1 meq/L 03/14/2025 3:52 AM EST [facility] Chloride 109 98 - 112 meq/L 03/14/2025 3:52 AM EST [facility] CO2 20(L) 22 - 29 meq/L 03/14/2025 3:52 AM EST [facility] Calcium 8.6 8.4 - 10.2 mg/dL 03/14/2025 3:52 AM EST [facility] Glucose 239(H) 82 - 115 mg/dL 03/14/2025 3:52 AM [facility] BUN 24.8(H) 9.8 - 20.1 mg/dL 03/14/2025 3:52 AM [facility] Creatinine 1.49(H) 0.50 - 1.20 mg/dL 03/14/2025 3:52 AM [facility] BUN/Creatinine 17 8 - 20 03/14/2025 3:52 AM [facility] eGFR (mL/min/1.73m2) 39(L) >=60 mL/min/1.7 3m2 03/14/2025 3:52 AM [facility] Comment:ESTIMATED GFR IS NOT ACCURATE CREATININE CLEARANCE IN PREDICTING GLOMERULAR FILTRATION RATE. ESTIMATED GFR IS NOT APPLICABLE FOR DIALYSIS PATIENTS. Albumin 3.1(L) 3.5 - 5.0 g/dL 03/14/2025 3:52 AM [facility] Alkaline Phosphatase 116 40 - 150 U/L 03/14/2025 3:52 AM [facility] ALT 21 <55 U/L 03/14/2025 3:52 AM [facility] AST 39(H) 5 - 34 U/L 03/14/2025 3:52 AM [facility] Total Bilirubin 0.2(L) 0.3 - 1.2 mg/dL 03/14/2025 3:52 AM [facility] Protein, Total 6.2(L) 6.4 - 8.3 g/dL 03/14/2025 3:52 AM [facility] Globulin 3.1 2.5 - 4.1 g/dL 03/14/2025 3:52 AM [facility] Anion Gap 14(H) 4 - 12 03/14/2025 3:52 AM [facility] A/G Ratio 1.0 0.7 - 1.9 03/14/2025 3:52 AM [facility] Osmolality Calc 289.7 mOsm/kg 3:52 AM [facility] Blood Venipuncture / Unknown 03/14/2025 3:20 AM EST 03/14/2025 3:25 AM EST us Eagle Etta DO LAB BLOOD ORDERABLES Final Resul t [facility] [address] [place] [id number] [phone] * (ABNORMAL) CBC with Automated Diff (03/14/2025 3:20 AM EST) WBC 7.8 4.0 - 10.0 K/ L 03/14/2025 3:33 AM [facility] RBC 2.92(L) 3.93 - 5.22 M/ L 03/14/2025 3:33 AM [facility] Hemoglobin 8.6(L) 11.2 - 15.7 GM/DL 03/14/2025 3:33 AM [facility] Hematocrit 25.8(L) 34.1 - 44.9 % 03/14/2025 3:33 AM [facility] MCV 88 79 - 95 fL 03/14/2025 3:33 AM [facility] MCH 29.5 25.6 - 32.2 pg 03/14/2025 3:33 AM [facility] MCHC 33.3 32.2 - 35.5 GM/DL 03/14/2025 3:33 AM [facility] RDW 12.7 11.7 - 14.4 % 03/14/2025 3:33 AM [facility] Platelets 185 140 - 375 K/CU MM 03/14/2025 3:33 AM [facility] MPV 9.4 9.4 - 12.3 fL 03/14/2025 3:33 AM [facility] % Neutros 92(H) 34 - 71 % 03/14/2025 3:33 AM [facility] % Lymphs 6(L) 19 - 52 % 03/14/2025 3:33 AM [facility] % Monos 1(L) 5 - 13 % 03/14/2025 3:33 AM [facility] % Eos 0.1(L) 1.0 - 6.0 % 03/14/2025 3:33 AM [facility] % Baso 0 0 - 1 % 03/14/2025 3:33 AM [facility] NRBC Absolute <0.01 0 - 0.012 K/ul 03/14/2025 3:33 AM [facility] # Neutros 7.16(H) 1.56 - 6.13 K/ L 03/14/2025 3:33 AM [facility] # Lymphs 0.47(L) 1.18 - 3.74 K/ L 03/14/2025 3:33 AM [facility] # Monos 0.05(L) 0.24 - 0.86 K/ L 03/14/2025 3:33 AM [facility] # Eos <0.03(L) 0.04 - 0.36 K/ L 03/14/2025 3:33 AM [facility] # Baso <0.03 0.01 - 0.08 K/ L 03/14/2025 3:33 AM [facility] % Imm Grans 0.60(H) 0.01 - 0.43 % 03/14/2025 3:33 AM [facility] # IG 0.05(H) 0.00 - 0.03 K/uL 03/14/2025 3:33 AM [facility] Blood Venipuncture / Unknown 03/14/2025 3:20 AM EST 03/14/2025 3:25 AM EST Narrative [facility] - 03/14/2025 3:33 AM EST When CBC w/ Auto Diff is [...] DO LAB BLOOD ORDERABLES Final Resul t [facility] [address] [phone] * (ABNORMAL) Blood gas, arterial (03/13/2025 11:25 PM EST) pH, Arterial 7.31(L) 7.35 - 7.45 03/13/2025 11:26 PM [facility] pCO2, Arterial 43 35 - 45 mm Hg 03/13/2025 11:26 PM [facility] pO2, Arterial 75(L) 80 - 100 mm Hg 03/13/2025 11:26 PM [facility] HCO3, Arterial 22 20 - 26 mmol/L 03/13/2025 11:26 PM [facility] Base Excess, Arterial -4.1(L) -2.0 - 2.0 mmol/L 03/13/2025 11:26 PM [facility] O2 Sat, Arterial 95.3 95.0 - 100.0 % 03/13/2025 11:26 PM [facility] CTO2 ARTERIAL 11.2 mmol/L 03/13/2025 11:26 PM [facility] THB ARTERIAL 8.4(L) 12.0 - 18.0 g/dL 03/13/2025 11:26 PM [facility] COLLECTION SITE Arterial Line 03/13/2025 11:26 PM [facility] Arterial Puncture No 03/13/2025 11:26 PM [facility] Blood Gas O2 Delivery Device Cannula 03/13/2025 11:26 PM [facility] Oxygen Flow Rate 6 03/13/2025 11:26 PM [facility] Blood Gas PT Temperature C 37.0 03/13/2025 11:26 PM [facility] Daniele's Test Not Applicable 03/13/20 11:26 PM [facility] ABG Number of Draw Attempts 1 03/13/2025 11:26 PM [facility] FIO2 03/13/2025 11:26 PM [facility] Blood Gas Temperature Corrected Results No No 03/13/2025 11:26 PM [facility] Blood, Arterial 03/13/2025 1 1:25 PM EST 03/13/2025 11:26 PM EST us Ozzy Keshawn SODA JERKER LAB BLOOD ORDERABLES Final Res ult [facility] [address] [phone] * (ABNORMAL) Glucose, Nova Meter (03/13/2025 11:24 PM EST) [facility] POC-GLUCOSE 180(H) 70 - 110 mg/dL 03/13/2025 11:27 PM [facility] Comment:In the event of poor peripheral blood flow, venous or arterial blood should be used due to the potential of erroneous results. Logistics Management Specialist [phone] 03/13/2025 11:27 PM [facility] Blood WHOLE BLOOD / Unknown 03/13/2025 11:24 PM EST 03/13/2025 11:27 PM EST us Eagle Iltis DO POINT OF CARE TEST ORDERABLES Fi nal Result Performing Organization Address [facility]/ZIP Co de Phone Number [facility] [address] [phone] * (ABNORMAL) CBC with automated diff (03/13/2025 9:27 PM EST) [facility] WBC 7.2 4.0 - 10.0 K/ L 03/13/2025 9:42 PM [facility] RBC 2.82(L) 3.93 - 5.22 M/ L 03/13/2025 9:42 PM [facility] Hemoglobin 8.5(L) 11.2 - 15.7 GM/DL 03/13/2025 9:42 PM [facility] Hematocrit 24.9(L) 34.1 - 44.9 % 03/13/2025 9:42 PM [facility] MCV 88 79 - 95 fL 03/13/2025 9:42 PM [facility] MCH 30.1 25.6 - 32.2 pg 03/13/2025 9:42 PM [facility] MCHC 34.1 32.2 - 35.5 GM/DL 03/13/2025 9:42 PM [facility] RDW 12.4 11.7 - 14.4 % 03/13/2025 9:42 PM [facility] Platelets 182 140 - 375 K/CU MM 03/13/2025 9:42 PM [facility] MPV 9.4 9.4 - 12.3 fL 03/13/2025 9:42 PM [facility] % Neutros 85(H) 34 - 71 % 03/13/2025 9:42 PM [facility] % Lymphs 9(L) 19 - 52 % 03/13/2025 9:42 PM [facility] % Monos 5 5 - 13 % 03/13/2025 9:42 PM [facility] % Eos 1.1 1.0 - 6.0 % 03/13/2025 9:42 PM [facility] % Baso 0 0 - 1 % 03/13/2025 9:42 PM [facility] NRBC Absolute <0.01 0 - 0.012 K/ul 03/13/2025 9:42 PM [facility] # Neutros 6.09 1.56 - 6.13 K/ L 03/13/2025 9:42 PM [facility] # Lymphs 0.62(L) 1.18 - 3.74 K/ L 03/13/2025 9:42 PM [facility] # Monos 0.37 0.24 - 0.86 K/ L 03/13/2025 9:42 PM [facility] # Eos 0.08 0.04 - 0.36 K/ L 03/13/2025 9:42 PM [facility] # Baso <0.03 0.01 - 0.08 K/ L 03/13/2025 9:42 PM [facility] % Imm Grans 0.40 0.01 - 0.43 % 03/13/2025 9:42 PM [facility] # IG 0.03 0.00 - 0.03 K/uL 03/13/2025 9:42 PM [facility] Blood Venipuncture / Unknown 03/13/2025 9:27 PM EST 03/13/2025 9:31 PM EST Narrative [facility] - 03/13/2025 9:42 PM EST When CBC w/ Auto Diff is ordered the lab will add a Manual Differential as a quality check at no additional charge if: Lymphocytes greater than seventy five percent with normal or increased WBC Monocytes greater than Fifteen percent Basophil greater than four percent Bands >10% or several immature myeloids are seen on scan Blast? Flag noted Atypical Lymph flag noted Ozzy Liao APRN LAB BLOOD ORDERABLES Final Res ult Performing Organization Address City/[facility]/ZIP Co de Phone Number [facility] [address] [phone] * (ABNORMAL) CALCIUM Ionized (03/13/2025 9:27 PM EST) [facility] Calcium Ionized 1.04(L) 1.12 - 1.32 mmol/L 03/13/2025 9:38 PM EST [facility] Blood Venipuncture / Unknown 03/13/2025 9:27 PM EST 03/13/2025 9:31 PM EST Ozzy Liao APRN LAB BLOOD ORDERABLES Final Res ult Performing Organization Address [facility]/ZIP Co de Phone Number [facility] [address] [phone] * Phosphorus (03/13/2025 9:27 PM EST) Pathologist [facility] [place] Phosphorus 3.9 2.5 - 4.5 mg/dL 03/13/2025 9:57 PM EST [facility] Blood Venipuncture / Unknown 03/13/2025 9:27 PM EST 03/13/2025 9:31 PM EST Ozzy Liao APRN LAB BLOOD ORDERABLES Final Res ult Performing Organization Address City/[facility]/ZIP Co de Phone Number [facility] [address] [phone] * Magnesium (03/13/2025 9:27 PM EST) Magnesium 1.7 1.6 - 2.6 mg/dL 03/13/2025 9:57 PM [facility]IT [facility] Blood Venipuncture / Unknown 03/13/2025 9:27 PM EST 03/13/2025 9:31 PM EST us Ozzy Liao [employer] LAB BLOOD ORDERABLES Final Res ult [facility] [address] [phone] * (ABNORMAL) Comprehensive metabolic panel (03/13/2025 9:27 PM EST) Sodium 142 136 - 145 meq/L 03/13/2025 9:57 PM KIT [facility] Potassium 3.9 3.4 - 5.1 meq/L 03/13/2025 9:57 PM KIT [facility] Chloride 110 98 - 112 meq/L 03/13/2025 9:57 PM KIT [facility] CO2 21(L) 22 - 29 meq/L 03/13/2025 9:57 PM KIT [facility] Calcium 8.0(L) 8.4 - 10.2 mg/dL 03/13/2025 9:57 PM KIT [facility] Glucose 110 82 - 115 mg/dL 03/13/2025 9:57 PM KIT [facility] BUN 25.4(H) 9.8 - 20.1 mg/dL 03/13/2025 9:57 PM KIT [facility] Creatinine 1.49(H) 0.50 - 1.20 mg/dL 03/13/2025 9:57 PM KIT [facility] BUN/Creatinine 17 8 - 20 03/13/2025 9:57 PM KIT [facility] eGFR (mL/min/1.73m2) 39(L) >=60 mL/min/1.7 3m2 03/13/2025 9:57 PM KIT [facility] Comment:ESTIMATED GFR IS NOT ACCURATE CREATININE CLEARANCE IN PREDICTING GLOMERULAR FILTRATION RATE. ESTIMATED GFR IS NOT APPLICABLE FOR DIALYSIS PATIENTS. Albumin 3.2(L) 3.5 - 5.0 g/dL 03/13/2025 9:57 PM KIT [facility] Alkaline Phosphatase 99 40 - 150 U/L 03/13/2025 9:57 PM KIT [facility] ALT 15 <55 U/L 03/13/2025 9:57 PM KIT [facility] AST 37(H) 5 - 34 U/L 03/13/2025 9:57 PM KIT [facility] Total Bilirubin 0.2(L) 0.3 - 1.2 mg/dL 03/13/2025 9:57 PM KIT [facility] Protein, Total 6.0(L) 6.4 - 8.3 g/dL 03/13/2025 9:57 PM KIT [facility] Globulin 2.8 2.5 - 4.1 g/dL 03/13/2025 9:57 PM KIT [facility] Anion Gap 15(H) 4 - 12 03/13/2025 9:57 PM KIT [facility] A/G Ratio 1.1 0.7 - 1.9 03/13/2025 9:57 PM KIT [facility] Osmolality Calc 288.3 mOsm/kg 9:57 PM KIT [facility] Blood Venipuncture / Unknown 03/13/2025 9:27 PM EST 03/13/2025 9:31 PM EST us Ozzy Liao APRN LAB BLOOD ORDERABLES Final Res ult Performing Organization Address City/State/[facility] Co de Phone Number [facility] [address] [phone] * (ABNORMAL) Glucose, Nova Meter (03/13/2025 9:25 PM EST) POC-GLUCOSE 60(L) 70 - 110 mg/dL 03/13/2025 9:28 PM KIT [facility] Comment:In the event of poor peripheral blood flow, venous or arterial blood should be used due to the potential of erroneous results. Logistics Management Specialist [phone] 03/13/2025 9:28 PM KIT [facility] Blood WHOLE BLOOD / Unknown 03/13/2025 9:25 PM EST 03/13/2025 9:28 PM EST Narrative [facility] - 03/13/2025 9:28 PM EST Notified RN/MD Eagle Quiles DO POINT OF CARE TEST ORDERABLES Fi nal Result [facility] [address] [phone] * XR chest AP portable (03/13/2025 8:26 PM EST) Anatomical Region Laterality Modality Chest X-Ray 03/13/2025 8:43 PM EST Impressions 03/13/2025 8:49 PM EST Opacities as above, likely secondary to pneumonia. Follow-up to complete resolution recommended . Images reviewed, interpreted, and dictated by Dr. Leah Sutherland. Transcribed by Dena Ayala. Narrative 03/13/2025 8:49 PM EST PORTABLE CHEST 03/13/2025 8:16 PM HISTORY: Dyspnea. COMPARISON: None. FINDINGS: The heart is normal in size . The mediastinum is unremarkable . There are bibasilar opacities. There is no pneumothorax . The osseous structures are unremarkable . Procedure Note Jaison Sutherland MD - 03/13/2025 PORTABLE CHEST 03/13/2025 8:16 PM HISTORY: Dyspnea. COMPARISON: None. FINDINGS: The heart is normal in size . The mediastinum is unremarkable . There are bibasilar opacities. There is no pneumothorax . The osseous structures are unremarkable . IMPRESSION: Opacities as above, likely secondary to pneumonia. Follow-up to complete resolution recommended . Images reviewed, interpreted, and dictated by Dr. Leah Sutherland. Transcribed by Dena Ayala. Ozzy Liao APRN IMG DIAGNOSTIC IMAGING ORDERAB LES Final Result * (ABNORMAL) Blood gas, arterial (03/13/2025 8:13 PM EST) pH, Arterial 7.30(L) 7.35 - 7.45 03/13/2025 8:15 PM KIT [facility] pCO2, Arterial 47(H) 35 - 45 mm Hg 03/13/2025 8:15 PM KIT [facility] pO2, Arterial 71(L) 80 - 100 mm Hg 03/13/2025 8:15 PM KIT [facility] HCO3, Arterial 23 20 - 26 mmol/L 03/13/2025 8:15 PM KIT [facility] Base Excess, Arterial -3.3(L) -2.0 - 2.0 mmol/L 03/13/2025 8:15 PM KIT [facility] O2 Sat, Arterial 93.7(L) 95.0 - 100.0 % 03/13/2025 8:15 PM KIT [facility] CTO2 ARTERIAL 12.7 mmol/L 03/13/2025 8:15 PM KIT [facility] THB ARTERIAL 9.7(L) 12.0 - 18.0 g/dL 03/13/2025 8:15 PM KIT [facility] PaO2/FIO2 calculated 142.0 03/13/2025 8:15 PM KIT [facility] SJ COLLECTION SITE Arterial Line 03/13/2025 8:15 PM KIT [facility] Arterial Puncture No 03/13/2025 8:15 PM KIT [facility] Blood Gas O2 Delivery Device NIV 03/13/2025 8:15 PM KIT [facility] Blood Gas Tidal Volume 677.0 03/13/2025 8:15 PM KIT [facility] Blood Gas PT Temperature C 37.0 03/13/2025 8:15 PM KIT [facility] Daniele's Test Not Applicable 03/13/20 8:15 PM KIT [facility] Critical Values Notification Critical Blood gas called to OZZY CHAVARRIA APRN . Results acknowledged/r ead back to [id number] and confirmed on 03/13/2025 20:17 03/13/2025 8:15 PM [facility]IT [facility] ABG Number of Draw Attempts 1 03/13/2025 8:15 PM KIT [facility] Set Rate 16.0 03/13/2025 8:15 PM [facility]IT [facility] IPAP 18 03/13/2025 8:15 PM KIT [facility] EPAP 6 03/13/2025 8:15 PM [facility]IT [facility] FIO2 50.0 03/13/2025 8:15 PM KIT [facility] Blood Gas Temperature Corrected Results No No 03/13/2025 8:15 PM [facility]IT [facility] Blood, Arterial 03/13/2025 8 :13 PM EST 03/13/2025 8:15 PM EST us Ozzy Liao SODA JERKER LAB BLOOD ORDERABLES Final Res ult Performing Organization Address [facility]/ZIP Co de Phone Number [facility] [address] [phone] * Glucose, Nova Meter (03/13/2025 4:29 PM EST) POC-GLUCOSE 109 70 - 110 mg/dL 03/13/2025 4:32 PM KIT [facility] Comment:In the event of poor peripheral blood flow, venous or arterial blood should be used due to the potential of erroneous results. Logistics Management Specialist [phone] 03/13/2025 4:32 PM KIT [facility] Blood WHOLE BLOOD / Unknown 03/13/2025 4:29 PM EST 03/13/2025 4:32 PM EST Narrative [facility] - 03/13/2025 4:32 PM EST Notified RN/MD us Eagle Quiles DO POINT OF CARE TEST ORDERABLES Fi nal Result Performing Organization Address City/[facility]/ZIP Co de Phone Number [facility] 1 [place] [address], [facility] [phone] * (ABNORMAL) Glucose, Nova Meter (03/13/2025 1:09 PM EST) POC-GLUCOSE 203(H) 70 - 110 mg/dL 03/13/2025 1:12 PM EST [facility] Comment:In the event of poor peripheral blood flow, venous or arterial blood should be used due to the potential of erroneous results. Logistics Management Specialist [phone] 03/13/2025 1:12 PM [facility]IT [facility] Blood WHOLE BLOOD / Unknown 03/13/2025 1:09 PM EST 03/13/2025 1:12 PM EST Narrative [facility] - 03/13/2025 1:12 PM EST Received Meds us Eagle Iltis DO POINT OF CARE TEST ORDERABLES Fi nal Result Performing Organization Address [facility] Phone Number [facility] [address] [phone] * (ABNORMAL) Glucose, Nova Meter (03/13/2025 11:09 AM EST) POC-GLUCOSE 156(H) 70 - 110 mg/dL 03/13/2025 11:12 AM EST [facility] Comment:In the event of poor peripheral blood flow, venous or arterial blood should be used due to the potential of erroneous results. Logistics Management Specialist [phone] 03/13/2025 11:12 AM EST [facility] Blood WHOLE BLOOD / Unknown 03/13/2025 11:09 AM EST 03/13/2025 11:12 AM EST [facility] - 03/13/2025 11:12 AM EST Notified RN/MD us Eagle Iltis DO POINT OF CARE TEST ORDERABLES Fi nal Result Performing Organization Address [facility] Phone Number [facility] [address] [phone] * (ABNORMAL) Glucose, Nova Meter (03/13/2025 10:41 AM EST) POC-GLUCOSE 173(H) 70 - 110 mg/dL 03/13/2025 10:45 AM EST [facility] Comment:In the event of poor peripheral blood flow, venous or arterial blood should be used due to the potential of erroneous results. Logistics Management Specialist [phone] 03/13/2025 10:45 AM EST [facility] Blood WHOLE BLOOD / Unknown 03/13/2025 10:41 AM EST 03/13/2025 10:45 AM EST Eagle Quiles DO POINT OF CARE TEST ORDERABLES Fi nal Result [facility] [address] [phone] * Tissue Exam (03/13/2025 9:46 AM EST) AP RESULT See Note: [facility] Comment: PATHOLOGY REPORT DIAGNOSIS: A. ARTERY, ATHEROMATOUS PLAQUE, EXCISION: Benign atheromatous plaque Final Reviewed, Diagnosed and Electronically Signed By: KIKE HANDLEY MD 03/18/2025 10:40AM CLINICAL HISTORY: Occlusion and stenosis of left carotid artery MICROSCOPIC DESCRIPTION: Tissue blocks are prepared and slides examined microscopically on all specimens. See diagnosis for details. GROSS DESCRIPTION: A. Received in formalin labeled plaque is a 3.0 x 2.6 x 0.5 cm aggregate of dillon-yellow rubbery to densely calcified atheromatous material. No thrombi material is identified. Legal Clerk sections of calcified areas are submitted in block A1 following decalcification. MTS Tissue PLAQUE / Unknown 03/13/2025 9:46 AM EST us Eagle Quiles DO PATHOLOGY/CYTOLOGY ORDERABLES Fi nal Result Performing Organization Address [facility] Co de Phone Number [facility] [address] * (ABNORMAL) Glucose, Nova Meter (03/13/2025 8:42 AM EST) POC-GLUCOSE 242(H) 70 - 110 mg/dL 03/13/2025 8:46 AM EST [facility] Comment:In the event of poor peripheral blood flow, venous or arterial blood should be used due to the potential of erroneous results. Logistics Management Specialist [phone] 03/13/2025 8:46 AM EST [facility] Blood WHOLE BLOOD / Unknown 03/13/2025 8:42 AM EST 03/13/2025 8:46 AM EST Narrative [facility] - 03/13/2025 8:46 AM EST Repeat Test us Eagle Etta DO POINT OF CARE TEST ORDERABLES Fi nal Result [facility] [address] [phone] * Antibody Screen (03/13/2025 7:05 AM EST) Antibody Screen Negative 03/13/2025 8:00 AM EST [facility] BLOOD [facility] (OR) Blood Venipuncture / Unknown 03/13/2025 7:05 AM EST 03/13/2025 7:30 AM EST us Eagle Quiles DO [facility] BLOOD BANK TEST ORDERABLES F inal Result Performing Organization Address [facility]/ZIP Co de Phone Number [facility] (OR) [address] [place] [address] [phone] * ABO/Rh (03/13/2025 7:05 AM EST) ABO/Rh A POSITIVE 03/13/2025 8:00 AM EST [facility] BLOOD BANK (OR) Blood Venipuncture / Unknown 03/13/2025 7:05 AM EST 03/13/2025 7:30 AM EST us Eagle Quiles [facility] BLOOD BANK TEST ORDERABLES F inal Result Performing Organization Address City/[facility]/ZIP Co de Phone Number [facility] (OR) [address] [place] [address], [facility] [phone] * Type and Screen (03/13/2025 7:05 AM EST) HISTCHK HIST CHECK PERFORMED 03/13/2025 7:30 AM EST [facility] BLOOD [facility] (OR) Blood Venipuncture / Unknown 03/13/2025 7:05 AM EST 03/13/2025 7:30 AM EST Eagle Quiles [facility] BLOOD BANK TEST ORDERABLES F inal Result Performing Organization Address [facility] Co de Phone Number [facility] (OR) [address] [place] [address], [facility] [phone] * (ABNORMAL) Glucose, Nova Meter (03/13/2025 6:32 AM EST) [facility] POC-GLUCOSE 304(H) 70 - 110 mg/dL 03/13/2025 6:36 AM EST [facility] Comment:In the event of poor peripheral blood flow, venous or arterial blood should be used due to the potential of erroneous results. Logistics Management Specialist [phone] 03/13/2025 6:36 AM EST [facility] Blood WHOLE BLOOD / Unknown 03/13/2025 6:32 AM EST 03/13/2025 6:36 AM EST Narrative [facility] - 03/13/2025 6:36 AM EST Notified RN/MD Eagle Quiles DO POINT OF CARE TEST ORDERABLES Fi nal Result Performing Organization Address City/[facility]/ZIP Co de Phone Number [facility] 1 [place] [address], [facility] [phone] * ABO/RH Confirmation/Retype (03/12/2025 5:14 PM EST) Pathologist [facility] RETYPE A Positive 03/13/2025 7:41 AM EST [facility] BLOOD [facility] (OR) Blood Venipuncture / Unknown 03/12/2025 5:14 PM EST 03/13/2025 7:41 AM EST Eagle Quiles DO [facility] BLOOD BANK TEST ORDERABLES F inal Result [facility] BLOOD BANK (OR) [address] [facility] [address], [facility] [phone] documented in this encounter Visit Diagnoses Diagnosis More than 50 percent stenosis of left internal carotid artery- Primary Medical history unknown Respiratory insufficiency Other dyspnea and respiratory abnormality Stenosis of left internal carotid artery documented in this encounter Admitting Diagnoses Diagnosis More than 50 percent stenosis of left internal carotid artery Stenosis of left internal carotid artery documented in this encounter Administered Medications Inactive Administered Medications - up to 3 most recent administrations Medication Order MAR Action Action Date Dose Rate Site acetaminophen (TYLENOL) tablet 1,000 mg 1,000 mg Every 6 hours scheduled, oral, First dose on Tue03/13/25 at 1300, Recommended maximum dose of acetaminophen is 4000 mg from all sources in 24 hours Given 03/16/2025 12:31 PM EST 1,000 mg Given 03/16/2025 5:27 AM EST 1,000 mg Given 03/16/2025 12:13 AM EST 1,000 mg albuterol 2.5 mg /3 mL (0.083 %) nebulizer solution 2.5 mg 2.5 mg Every 6 hours PRN, nebulization, wheezing, shortness of breath, Starting on Tue03/13/25 at 1307, RESPIRATORY THERAPY TREATMENT , What is the respiratory therapy Modality? Small volume Nebulization amLODIPine (NORVASC) tablet 10 mg 10 mg Every morning, oral, First dose (after last modification) on Tue03/13/25 at 1530, Antihypertensive - Check BP - Check Pulse Given 03/16/2025 5:38 AM EST 10 mg Given 03/15/2025 6:15 AM EST 10 mg Given 03/14/2025 6:20 AM EST 10 mg aspirin EC tablet 81 mg 81 mg Every evening, oral, First dose on Tue03/13/25 at 1700, * DO NOT CRUSH THIS DOSAGE FORM * Given 03/15/2025 5:42 PM EST 81 mg Given 03/14/2025 4:30 PM EST 81 mg Given 03/13/2025 4:23 PM EST 81 mg atorvastatin (LIPITOR) tablet 20 mg 20 mg Every Night, oral, First dose on Tue03/13/25 at 2100 Given 03/15/2025 9:19 PM EST 20 mg Given 03/14/2025 8:37 PM EST 20 mg calcium gluconate 2 g in sodium chloride 0.9 % (NS) 100 mL IVPB at 100 mL/hr, Administer over 60 Minutes, intravenous, Once, On Tue03/13/25 at 2300, For 1 dose IVPB Started 03/13/2025 10:39 PM EST 2 g 100 mL/hr carvediloL (COREG) tablet 12.5 mg 12.5 mg 2 times daily with breakfast and dinner, oral, First dose on Tue03/13/25 at 1700, Hold for systolic BP < 90 mmHg or for HR < 50 BPM Given 03/15/2025 8:04 AM EST 12.5 mg Given 03/14/2025 4:30 PM EST 12.5 mg Given 03/14/2025 8:11 AM EST 12.5 mg carvediloL (COREG) tablet 12.5 mg 12.5 mg Once, oral, On Tue03/15/25 at 1530, For 1 dose, Hold for systolic BP < 90 mmHg or for HR < 50 BPM Given 03/15/2025 3:41 PM EST 12.5 mg carvediloL (COREG) tablet 12.5 mg 12.5 mg 2 times daily with breakfast and dinner, oral, First dose (after last reorder) on Tue03/15/25 at 1700, Hold for systolic BP < 90 mmHg or for HR < 50 BPM Given 03/16/2025 8:40 AM EST 12. 5 mg Given 03/15/2025 5:42 PM EST 12.5 mg cetirizine (ZyrTEC) tablet 10 mg 10 mg Every morning, oral, First dose on Tue03/14/25 at 0700 Given 03/16/2025 10:22 AM EST 10 mg Given 03/15/2025 8:04 AM EST 10 mg Given 03/14/2025 8:11 AM EST 10 mg dextrose 50% (D50W) injection 25 g 25 g Every 15 min PRN, intravenous, low blood glucose (specify value in prn comments), less than 41 mg/dL or 41-69 mg/dL and unable to take PO, Starting on Tue03/13/25 at 1239, Repeat blood glucose every 15 minutes until blood glucose greater than 70 mg/dL. Call Provider if not resolved after 2 treatments Repeat BS in 1 hour, retime for 1 hour after blood sugar greater than 70 mg/dL If less than 41: Repeat Finger stick within 5 minutes with same machine Send serum glucose level: Do not wait on lab to treat Given 03/13/2025 9:31 PM EST 25 g dilTIAZem (CARDIZEM) injection 10 mg 10 mg Once, intravenous, On Tue03/13/25 at 1300, For 1 dose, Hold if SBP less than 100 mmHg, DBP less than 50 mmHg, or patient is on pressor. Given 03/13/2025 1:19 PM EST 10 mg dilTIAZem 100 mg in sodium chloride 0.9 % (NS) MBP 100 mL infusion 2-15 mg/hr Continuous (2-15 mL/hr), intravenous, Starting on Tue03/13/25 at 1300 Rate/Dose Change 03/13/2025 9:12 PM EST 12.5 mg/hr 12.5 mL/hr New Bag 03/13/2025 8:00 PM EST 15 mg/hr 15 mL/hr Rate/Dose Verify 03/13/2025 6:11 PM EST 15 mg/hr 15 mL/h r diphenhydrAMINE (BENADRYL) injection 12.5 mg 12.5 mg Once, intravenous, On Tue03/13/25 at 2030, For 1 dose Given 03/13/2025 9:13 PM EST 12.5 mg DULoxetine (CYMBALTA) DR capsule 30 mg 30 mg Every morning, oral, First dose on Tue03/14/25 at 0700, * DO NOT CRUSH THIS DOSAGE FORM * Given 03/16/2025 5:38 AM EST 30 mg Given 03/15/2025 6:15 AM EST 30 mg Given 03/14/2025 6:19 AM EST 30 mg empagliflozin (JARDIANCE) tablet 25 mg 25 mg Daily, oral, First dose on Tue03/15/25 at 1530, Is the patient scheduled for surgery in the next 3 days? Yes It is strongly recommended to temporarily hold SGLT2 medications for at least 3 days prior to surgery to avoid predisposing the patient to ketoacidosis Given 03/16/2025 8:40 AM EST 25 mg Given 03/15/2025 3:41 PM EST 25 mg famotidine (PEPCID) tablet 20 mg 20 mg Once, oral, On Tue03/13/25 at 0800, For 1 dose, Pharmacist to renally dose if CrCl is less than 50 mL/min or on CRRT., Pre-op Given 03/13/2025 8:02 AM EST 20 mg famotidine injection 20 mg 20 mg Once, intravenous, On Tue03/13/25 at 2030, For 1 dose, Pharmacist to renally dose if CrCl is less than 50 mL/min or on CRRT. Given 03/13/2025 9:13 PM EST 2 0 mg fentaNYL PF (SUBLIMAZE) injection 100 mcg 100 mcg Once, intravenous, On Tue03/13/25 at 0830, For 1 dose Given 03/13/2025 8:15 AM EST 50 mcg fentaNYL PF (SUBLIMAZE) injection 25 mcg 25 mcg Every 5 min PRN, intravenous, severe pain (7-10), Starting on Tue03/13/25 at 1035, Maximum cumulative dose 100 mcg, PACU Given 03/13/2025 11:40 AM EST 25 mcg Given 03/13/2025 11:31 AM EST 25 mcg Given 03/13/2025 11:17 AM EST 25 mcg gabapentin (NEURONTIN) capsule 100 mg 100 mg 2 times daily, oral, First dose on Tue03/13/25 at 1300 Given 03/16/2025 8:40 AM EST 100 mg Given 03/15/2025 9:20 PM EST 100 mg Given 03/15/2025 8:04 AM EST 100 mg hydrALAZINE (APRESOLINE) injection 10 mg 10 mg Every 20 min PRN, intravenous, high blood pressure (specify), For SBP >160 mmHg, Starting on Tue03/13/25 at 1035, For 2 doses, Hold if SBP less than 140 mmHg, DBP less than 70 mmHg, or patient is on pressor. Look-alike/Sound-alike medication, PACU Given 03/13/2025 11:40 AM EST 10 mg hydrALAZINE (APRESOLINE) injection 10 mg 10 mg Every 4 hours PRN, intravenous, high blood pressure (specify), SBP >160, Starting on Tue03/13/25 at 1242, Hold if SBP < 100 mmHg, DBP < 50 mmHg, or patient is on pressor. Look-alike/Sound-alike medication Given 03/14/2025 6:22 AM EST 10 mg Given 03/13/2025 12:54 PM EST 10 mg HYDROmorphone (DILAUDID) injection 0.5 mg 0.5 mg Every 3 hours PRN, intravenous, severe pain (7-10), Starting on Tue03/13/25 at 1239 Given 03/15/2025 9:21 PM EST 0.5 mg insulin glargine-yfgn (SEMGLEE) solution 43 Units 43 Units Once, subcutaneous, On Tue03/15/25 at 1100, For 1 dose Given 03/15/2025 10:44 AM EST 43 Units Abdominal Tissue insulin lispro (HUMALOG, ADMELOG) injection 0-12 Units 0-12 Units 4 times daily (before meals and nightly), subcutaneous, First dose on Tue03/13/25 at 1300, If Blood Sugar is less than 180 beteween [id number], DO NOT give corrective insulin unless otherwise ordered. Corrective Scale B 0 units for fingerstick blood glucose LESS than 140 mg/dL 2 units subcutaneously once for fingerstick blood glucose [140] - [180] mg/dL 4 units subcutaneously once for fingerstick blood glucose [181] - [220] mg/dL 6 units subcutaneously once for fingerstick blood glucose [221] - [260] mg/dL 8 units subcutaneously once for fingerstick blood glucose [261] - [300] mg/dL 10 units subcutaneously once for fingerstick blood glucose [301] - [350] mg/dL 12 units subcutaneously once for fingerstick blood glucose [351] - [400] mg/dL Notify provider of glucose levels LESS than [70] and GREATER than [400] Given 03/16/2025 12:30 PM EST 4 Units Abdominal Tissue Given 03/16/2025 8:40 AM EST 2 Units Ab dominal Tissue Given 03/15/2025 9:19 PM EST 4 Units Le ft Arm insulin lispro (HUMALOG, ADMELOG) injection 8 Units 8 Units Once, subcutaneous, On Tue03/13/25 at 0800, For 1 dose Given 03/13/2025 8:01 AM EST 8 Units Left Arm insulin regular (HumuLIN,NovoLIN) 100 units in sodium chloride 0.9 % 100 mL infusion (premix) 1-30 Units/hr Continuous (1-30 mL/hr), intravenous, Starting on Karis 03/14/25 at 1700, Prime IV with 25 mL of insulin infusion prior to starting corrective Insulin Drip-(priming not necessary for the commercial product Myxredlin) *Initiation of Infusion: If initial FSBG GREATER than 350 mg/dL, start infusion at 8 units/hr; If initial FSBG 301-350 mg/dL, start infusion at 6 units/hr; If initial FSBG 251-300 mg/dL, start infusion at 4 units/hr; If initial FSBG 181-250 mg/dL, start infusion at 2 units/hr; If initial FSBG LESS than or EQUAL to 180 mg/dL, DO NOT start infusion, recheck FSBG Q2hr x3. If FSBG remains LESS than or EQUAL to 180 mg/dL, discontinue insulin infusion standing orders and follow SOMETHING ELSE *Titration of Insulin Infusion: -Max rate of infusion is 30 units/hr- Repeat FSBG hourly until FSBG is in target range; adjust infusion as follows: IF FSBG DECREASES BY 20 OR MORE FROM LAST READING AND IS STILL GREATER THAN 140, DO NOT INCREASE DRIP!! RECHECK FSBG IN ONE HOUR IF FSBG DECREASES BY 100, DECREASE INFUSION BY AND RECHECK IN 30 MINS FSBG GREATER than 350: Increase infusion by 6 units/hr; FSBG 301-350: Increase infusion by 5 units/hr; FSBG 251-300: Increase infusion by 4 units/hr; FSBG 201-250: Increase infusion by 3 units/hr; FSBG 181-200: Increase infusion by 2 units/hr; FSBG 140-180: No change in infusion rate; FSBG 110-139: Decrease infusion by 1/2 (round down to nearest 0.5 unit); FSBG 70-109;Stop infusion, and recheck FSBG hourly until 140mg/dl or GREATER is achieved. Restart infusion at 1/2 last rate, check FSBG hourly FSBG = 61-69; Stop insulin infusion, check FSBG Q30min until 140mg/dl or GREATER is achieved. Restart infusion at 1/2 last rate, check FSBG hourly; FSBG 60 or LESS: Stop Insulin Infusion, give patient 1 amp D50W and recheck FSBG in 15 minutes. If GREATER than 140, check in 15 minutes again. When FSBG GREATER than 140 X 2 then restart at 1/2 last rate. If FSBG remains 60 or less after 2 checks, contact physician. Protect from light. Do not freeze. Do not shake or send via pneumatic tube. BUD: 30 days from removal from fridge. Rate/Dose Change 03/15/2025 9:10 AM EST 3.5 Units/hr 3.5 mL/hr Rate/Dose Change 03/15/2025 7:00 AM EST 1.5 Units/hr 1.5 m L/hr Rate/Dose Change 03/15/2025 6:00 AM EST 3 Units/hr 3 mL/hr ipratropium (ATROVENT) 0.02 % nebulizer solution 0.5 mg 0.5 mg Every 4 hours PRN, nebulization, wheezing, shortness of breath, Starting on Karis 03/14/25 at 1034, * RESPIRATORY THERAPY TREATMENT *, What is the respiratory therapy Modality? Small volume NebulizationIndications:Respiratory insufficiency ipratropium-albuteroL (DUO-NEB) 0.5 mg-3 mg(2.5 mg base)/3 mL nebulizer solution 3 mL 3 mL 4 times daily, nebulization, First dose on Tue03/13/25 at 1330, RESPIRATORY THERAPY TREATMENT Protect from Light, What is the respiratory therapy Modality? Small volume Nebulization Given 03/14/2025 8:43 AM EST 3 mLs Given 03/13/2025 8:20 PM EST 3 mLs labetaloL (TRANDATE, NORMODYNE) injection 10 mg 10 mg Every 2 hour PRN, intravenous, hypertension (sbp greater than 160), Starting on Tue03/13/25 at 1955, Hold for systolic BP < 90 mmHg or for HR < 50 BPM Given 03/16/2025 5:27 AM EST 10 mg Given 03/16/2025 12:13 AM EST 10 mg Given 03/15/2025 9:38 PM EST 10 mg lactated Ringer's infusion 100 mL/hr Continuous, intravenous, Starting on Tue03/13/25 at 0800 Rate/Dose Change 03/13/2025 8:50 AM EST 500 mL/hr New Bag 03/13/2025 7:59 AM EST 100 mL/hr 100 mL/hr levalbuteroL (XOPENEX) nebulizer solution 1.25 mg 1.25 mg Every 6 hours (RT), nebulization, First dose on Tue03/14/25 at 1100, RESPIRATORY THERAPY TREATMENT , What is the respiratory therapy Modality? Small volume Nebulization, Levalbuterol is a RESTRICTED med. Must Select the Use Criteria or Allow Therapeutic Substitution by Pharmacist: Allow Therapeutic Substitution by PharmacistIndications:Respiratory insufficiency Given 03/16/2025 10:57 AM EST 1.25 mg Given 03/16/2025 4:17 AM EST 1.25 mg Given 03/15/2025 11:51 PM EST 1.25 mg magnesium sulfate IVPB 2 g in sterile water 50 mL (premix) at 25 mL/hr, Administer over 120 Minutes, intravenous, Once, On Tue03/13/25 at 2300, For 1 dose IVPB Started 03/13/2025 10:38 PM EST 2 g 25 mL/hr methylPREDNISolone sodium succinate (PF) (Solu-MEDROL) injection 125 mg 125 mg Once, intravenous, On Tue03/13/25 at 2030, For 1 dose Given 03/13/2025 9:13 PM EST 125 mg metoprolol tartrate (LOPRESSOR) tablet 12.5 mg 12.5 mg Every evening, oral, First dose on Tue03/13/25 at 1700, Hold for systolic BP < 90 mmHg or for HR < 50 BPM Given 03/14/2025 4:30 PM EST 12.5 mg Given 03/13/2025 4:23 PM EST 12.5 mg metoprolol tartrate (LOPRESSOR) tablet 25 mg 25 mg Every evening, oral, First dose (after last modification) on Tue03/15/25 at 1700, Hold for systolic BP < 90 mmHg or for HR < 50 BPM Given 03/15/2025 5:42 PM EST 25 mg niCARdipine (CARDENE) 25 mg in sodium chloride 0.9 % (NS) 250 mL infusion (CMPD) 0-15 mg/hr Titrated (0-150 mL/hr), intravenous, Starting on Tue03/13/25 at 1100, PACU Rate/Dose Change 03/13/2025 11:22 AM EST 15 mg/hr 150 mL/hr Continued by Anesthesia 03/13/2025 11:13 AM EST 10 mg/hr 100 mL/hr niCARdipine (CARDENE) 25 mg in sodium chloride 0.9 % (NS) 250 mL infusion (CMPD) 0-15 mg/hr Titrated (0-150 mL/hr), intravenous, Starting on Tue03/13/25 at 1530 Rate/Dose Change 03/14/2025 4:15 AM EST 2.5 mg/hr 25 mL/hr New Bag 03/14/2025 2:09 AM EST 5 mg/hr 50 mL/hr New Bag 03/13/2025 10:12 PM EST 5 mg/hr 50 mL/hr oxyCODONE (ROXICODONE) immediate release tablet 5 mg 5 mg Every 4 hours PRN, oral, moderate pain (4-6), Starting on Tue03/13/25 at 1239, Look-alike/Sound-alike medication Given 03/16/2025 1:30 PM EST 5 mg Given 03/16/2025 4:01 AM EST 5 mg Given 03/15/2025 5:42 PM EST 5 mg pantoprazole (PROTONIX) EC tablet 40 mg 40 mg Every morning, oral, First dose on Karis 03/14/25 at 0700, * DO NOT CRUSH THIS DOSAGE FORM * Given 03/16/2025 5:38 AM EST 40 mg Given 03/15/2025 6:15 AM EST 40 mg Given 03/14/2025 6:20 AM EST 40 mg rOPINIRole (REQUIP) tablet 0.5 mg 0.5 mg Every morning, oral, First dose on Tue03/14/25 at 0700 Given 03/16/2025 5:39 AM EST 0.5 mg Given 03/15/2025 6:15 AM EST 0.5 mg Given 03/14/2025 6:19 AM EST 0.5 mg rOPINIRole (REQUIP) tablet 1 mg 1 mg Every evening, oral, First dose on Tue03/13/25 at 1700 Given 03/15/2025 5:42 PM EST 1 mg Given 03/14/2025 4:30 PM EST 1 mg Given 03/13/2025 4:22 PM EST 1 mg documented in this encounter Active and Recently Administered Medications Times are shown in EST. Scheduled Medication Order 03/14/2025 03/15/2025 03/16/2025 acetaminophen (TYLENOL) tablet 1,000 mg 1,000 mg Every 6 hours scheduled, oral, First dose on Tue03/13/25 at 1300, Recommended maximum dose of acetaminophen is 4000 mg from all sources in 24 hours 0059 (Not Given - Provider: Leann Jose RN - Reason: Patient/family refused)0619 (Given - Provider: Leann Jose RN)1123 (Given - Provider: Preethi Caban RN)1724 (Given - Provider: Preethi Caban RN) 0000 (Not Given - Provider: Mar Perdomo RN - Reason: Patient/family refused)0615 (Given - Provider: Mar Perdomo RN)1339 (Given - Provider: Lilia Steel RN)1729 (Not Given - Provider: Lilia Steel RN - Reason: Patient/family refused) 0013 (Given - Provider: Mar Perdomo RN)0527 (Given - Provider: Mar Perdomo, RN)1231 (Given - Provider: Jael Cabello RN) amLODIPine (NORVASC) tablet 10 mg 10 mg Every morning, oral, First dose (after last modification) on Tue03/13/25 at 1530, Antihypertensive - Check BP - Check Pulse 0620 (Given - Provider: Leann Jose RN) 0615 (Given - Provider: Mar Perdomo RN) 0538 (Given - Provider: Mar Perdomo RN) aspirin EC tablet 81 mg 81 mg Every evening, oral, First dose on Tue03/13/25 at 1700, * DO NOT CRUSH THIS DOSAGE FORM * 1630 (Given - Provider: Preethi Caban RN) 1742 (Given - Provider: Lilia Steel, GABRIEL) atorvastatin (LIPITOR) tablet 20 mg 20 mg Every Night, oral, First dose on Tue03/13/25 at 2100 2036 (Given - Provider: Mar Perdomo, RN) 211 (Given - Provider: Mar Perdomo RN) carvediloL (COREG) tablet 12.5 mg (CANCELED) 12.5 mg 2 times daily with breakfast and dinner, oral, First dose on Tue03/13/25 at 1700, Hold for systolic BP < 90 mmHg or for HR < 50 BPM 0811 (Given - Provider: Preethi Caban RN)1630 (Given - Provider: Preethi Caban RN) 0804 (Given - Provider: Lilia Steel RN) carvediloL (COREG) tablet 12.5 mg (COMPLETED) 12.5 mg Once, oral, On Tue03/15/25 at 1530, For 1 dose, Hold for systolic BP < 90 mmHg or for HR < 50 BPM 1541 (Given - Provider: Lilia Steel RN) carvediloL (COREG) tablet 12.5 mg 12.5 mg 2 times daily with breakfast and dinner, oral, First dose (after last reorder) on Tue03/15/25 at 1700, Hold for systolic BP < 90 mmHg or for HR < 50 BPM 1742 (Given - Provider: Lilia Steel RN) 0840 (Given - Provider: Jael Cabello, GABRIEL) cetirizine (ZyrTEC) tablet 10 mg 10 mg Every morning, oral, First dose on Tue03/14/25 at 0700 0811 (Given - Provider: Preethi Caban RN) 0804 (Given - Provider: Lilia Steel RN) 1022 (Given - Provider: Jael Cabello, GABRIEL) DULoxetine (CYMBALTA) DR capsule 30 mg 30 mg Every morning, oral, First dose on Tue03/14/25 at 0700, * DO NOT CRUSH THIS DOSAGE FORM * 0619 (Given - Provider: Leann Jose RN) 0615 (Given - Provider: Mar Perdomo, RN) 0538 (Given - Provider: Mar Perdomo, GABRIEL) empagliflozin (JARDIANCE) tablet 25 mg 25 mg Daily, oral, First dose on Tue03/15/25 at 1530, Is the patient scheduled for surgery in the next 3 days? Yes It is strongly recommended to temporarily hold SGLT2 medications for at least 3 days prior to surgery to avoid predisposing the patient to ketoacidosis 1541 (Given - Provider: Lilia Steel RN) 0840 (Given - Provider: Jael Cabello, GABRIEL) gabapentin (NEURONTIN) capsule 100 mg 100 mg 2 times daily, oral, First dose on Tue03/13/25 at 1300 0811 (Given - Provider: Preethi Caban RN)2036 (Given - Provider: Mar Conor, RN) 0804 (Given - Provider: Lilia Steel RN)2120 (Given - Provider: Mar Perdomo RN) 0840 (Given - Provider: Jael Cabello RN) insulin glargine-yfgn (SEMGLEE) solution 43 Units (COMPLETED) 43 Units Once, subcutaneous, On Tue03/15/25 at 1100, For 1 dose 1044 (Given - Provider: Lilia Steel RN) insulin lispro (HUMALOG, ADMELOG) injection 0-12 Units 0-12 Units 4 times daily (before meals and nightly), subcutaneous, First dose on Tue03/13/25 at 1300, If Blood Sugar is less than 180 beteween [id number], DO NOT give corrective insulin unless otherwise ordered. Corrective Scale B 0 units for fingerstick blood glucose LESS than 140 mg/dL 2 units subcutaneously once for fingerstick blood glucose [140] - [180] mg/dL 4 units subcutaneously once for fingerstick blood glucose [181] - [220] mg/dL 6 units subcutaneously once for fingerstick blood glucose [221] - [260] mg/dL 8 units subcutaneously once for fingerstick blood glucose [261] - [300] mg/dL 10 units subcutaneously once for fingerstick blood glucose [301] - [350] mg/dL 12 units subcutaneously once for fingerstick blood glucose [351] - [400] mg/dL Notify provider of glucose levels LESS than [70] and GREATER than [400] 0635 (Not Given - Provider: Leann Jose RN - Reason: Other (with Comment))1123 (Given - Provider: Preethi Caban RN)1616 (Held by provider - Provider: Lorenzo Holt APRN - Reason: Other (with Comment) - Comment: Insulin drip initiated)1630 (Not Given - Provider: Preethi aCban RN - Reason: Per MD Order)2100 (Canceled Entry - Provider: Lilia Steel RN) 0730 (Canceled Entry - Provider: Lilia Steel RN)1130 (Not Given - Provider: Lilia Steel RN - Reason: Duplicate Order)1509 (Unheld by provider - Provider: Jonathon Guthrie MD)1541 (Given - Provider: Lilia Steel, RN)2119 (Given - Provider: Mar Perdomo RN) 0840 (Given - Provider: Jael Cabello, GABRIEL)1230 (Given - Provider: Jael Cabello, GABRIEL) ipratropium-albuteroL (DUO-NEB) 0.5 mg-3 mg(2.5 mg base)/3 mL nebulizer solution 3 mL (CANCELED) 3 mL 4 times daily, nebulization, First dose on Tue03/13/25 at 1330, RESPIRATORY THERAPY TREATMENT Protect from Light, What is the respiratory therapy Modality? Small volume Nebulization 0843 (Given - Provider: Arpita Gardner, YUE) levalbuteroL (XOPENEX) nebulizer solution 1.25 mg 1.25 mg Every 6 hours (RT), nebulization, First dose on Tue03/14/25 at 1100, RESPIRATORY THERAPY TREATMENT , What is the respiratory therapy Modality? Small volume Nebulization, Levalbuterol is a RESTRICTED med. Must Select the Use Criteria or Allow Therapeutic Substitution by Pharmacist: Allow Therapeutic Substitution by Pharmacist 1100 (Given - Provider: Arpita Gardner, ELOCUTION TEACHER)1619 (Given - Provider: Arpita Gardner, YUE)2200 (Given - Provider: Mi Iglesias, SHARMIN) 0527 (Given - Provider: Mi Iglesias CRT)1202 (Not Given - Provider: Yamileth Warren, YUE - Reason: Patient/family refused)1624 (Given - Provider: Yamileth Warren, YUE)2351 (Given - Provider: Mi Iglesias, SHARMIN) 0417 (Given - Provider: Mi Iglesias CRT)1057 (Given - Provider: Clifton Wong, YUE) metoprolol tartrate (LOPRESSOR) tablet 12.5 mg (CANCELED) 12.5 mg Every evening, oral, First dose on Tue03/13/25 at 1700, Hold for systolic BP < 90 mmHg or for HR < 50 BPM 1630 (Given - Provider: Preethi Caban RN) metoprolol tartrate (LOPRESSOR) tablet 25 mg 25 mg Every evening, oral, First dose (after last modification) on Tue03/15/25 at 1700, Hold for systolic BP < 90 mmHg or for HR < 50 BPM 1742 (Given - Provider: Lilia Steel, GABRIEL) pantoprazole (PROTONIX) EC tablet 40 mg 40 mg Every morning, oral, First dose on Tue03/14/25 at 0700, * DO NOT CRUSH THIS DOSAGE FORM * 0620 (Given - Provider: Leann Jose, RN) 0615 (Given - Provider: Mar Perdomo, RN) 0538 (Given - Provider: Mar Perdomo, RN) rOPINIRole (REQUIP) tablet 0.5 mg 0.5 mg Every morning, oral, First dose on Tue03/14/25 at 0700 0619 (Given - Provider: Leann Jose, RN) 0615 (Given - Provider: Mar Perdomo, RN) 0539 (Given - Provider: Mar Perdomo, GABRIEL) rOPINIRole (REQUIP) tablet 1 mg 1 mg Every evening, oral, First dose on Tue03/13/25 at 1700 1630 (Given - Provider: Preethi Caban RN) 1742 (Given - Provider: Lilia Steel RN) Continuous Medication Order 03/14/2025 03/15/2025 03/16/2025 dilTIAZem 100 mg in sodium chloride 0.9 % (NS) MBP 100 mL infusion(Linked Group 1) 2-15 mg/hr Continuous (2-15 mL/hr), intravenous, Starting on Tue03/13/25 at 1300 insulin regular (HumuLIN,NovoLIN) 100 units in sodium chloride 0.9 % 100 mL infusion (premix) (CANCELED) 1-30 Units/hr Continuous (1-30 mL/hr), intravenous, Starting on Tue03/14/25 at 1700, Prime IV with 25 mL of insulin infusion prior to starting corrective Insulin Drip-(priming not necessary for the commercial product Myxredlin) *Initiation of Infusion: If initial FSBG GREATER than 350 mg/dL, start infusion at 8 units/hr; If initial FSBG 301-350 mg/dL, start infusion at 6 units/hr; If initial FSBG 251-300 mg/dL, start infusion at 4 units/hr; If initial FSBG 181-250 mg/dL, start infusion at 2 units/hr; If initial FSBG LESS than or EQUAL to 180 mg/dL, DO NOT start infusion, recheck FSBG Q2hr x3. If FSBG remains LESS than or EQUAL to 180 mg/dL, discontinue insulin infusion standing orders and follow SOMETHING ELSE *Titration of Insulin Infusion: -Max rate of infusion is 30 units/hr- Repeat FSBG hourly until FSBG is in target range; adjust infusion as follows: IF FSBG DECREASES BY 20 OR MORE FROM LAST READING AND IS STILL GREATER THAN 140, DO NOT INCREASE DRIP!! RECHECK FSBG IN ONE HOUR IF FSBG DECREASES BY 100, DECREASE INFUSION BY AND RECHECK IN 30 MINS FSBG GREATER than 350: Increase infusion by 6 units/hr; FSBG 301-350: Increase infusion by 5 units/hr; FSBG 251-300: Increase infusion by 4 units/hr; FSBG 201-250: Increase infusion by 3 units/hr; FSBG 181-200: Increase infusion by 2 units/hr; FSBG 140-180: No change in infusion rate; FSBG 110-139: Decrease infusion by 1/2 (round down to nearest 0.5 unit); FSBG 70-109;Stop infusion, and recheck FSBG hourly until 140mg/dl or GREATER is achieved. Restart infusion at 1/2 last rate, check FSBG hourly FSBG = 61-69; Stop insulin infusion, check FSBG Q30min until 140mg/dl or GREATER is achieved. Restart infusion at 1/2 last rate, check FSBG hourly; FSBG 60 or LESS: Stop Insulin Infusion, give patient 1 amp D50W and recheck FSBG in 15 minutes. If GREATER than 140, check in 15 minutes again. When FSBG GREATER than 140 X 2 then restart at 1/2 last rate. If FSBG remains 60 or less after 2 checks, contact physician. Protect from light. Do not freeze. Do not shake or send via pneumatic tube. BUD: 30 days from removal from fridge. 1714 (New Bag - Provider: Preethi Caban RN)1815 (Rate/Dose Change - Provider: Preethi Caban RN)2100 (Rate/Dose Change - Provider: Mar Predomo, RN) 0100 (Rate/Dose Change - Provider: Mar Perdomo, RN)0256 (New Bag - Provider: Mar Perdomo RN)0600 (Rate/Dose Change - Provider: Mar Perdomo RN)0700 (Rate/Dose Change - Provider: Mar Perdomo RN)0910 (Rate/Dose Change - Provider: Lilia Steel, RN)1240 (Stopped - Provider: Lilia Steel RN) niCARdipine (CARDENE) 25 mg in sodium chloride 0.9 % (NS) 250 mL infusion (CMPD) 0-15 mg/hr Titrated (0-150 mL/hr), intravenous, Starting on Tue03/13/25 at 1530 0209 (New Bag - Provider: Leann Jose RN)0415 (Rate/Dose Change - Provider: Leann Jose, RN)0619 (Stopped - Provider: Leann Jose RN) PRN Medication Order 03/14/2025 03/15/2025 03/16/2025 albuterol 2.5 mg /3 mL (0.083 %) nebulizer solution 2.5 mg 2.5 mg Every 6 hours PRN, nebulization, wheezing, shortness of breath, Starting on Tue03/13/25 at 1307, RESPIRATORY THERAPY TREATMENT , What is the respiratory therapy Modality? Small volume Nebulization dextrose 50% (D50W) injection 25 g 25 g Every 15 min PRN, intravenous, low blood glucose (specify value in prn comments), less than 41 mg/dL or 41-69 mg/dL and unable to take PO, Starting on Tue03/13/25 at 1239, Repeat blood glucose every 15 minutes until blood glucose greater than 70 mg/dL. Call Provider if not resolved after 2 treatments Repeat BS in 1 hour, retime for 1 hour after blood sugar greater than 70 mg/dL If less than 41: Repeat Finger stick within 5 minutes with same machine Send serum glucose level: Do not wait on lab to treat glucagon injection 1 mg 1 mg Every 15 min PRN, intraMUSCULAR, low blood glucose (specify value in prn comments), For Patients without IV access and blood glucose 41-69 mg/dL AND unable to take PO OR Less than 41 mg/dL, Starting on Tue03/13/25 at 1239, Caution: glucagon . Roll patient on their side when administering to prevent aspiration. Call Provider if not resolved after 2 treatments Repeat BS in 1 hour, retime for 1 hour after blood sugar greater than 70 mg/dL glucose chew tab 16 g 16 g Every 15 min PRN, oral, low blood glucose (specify value in prn comments), 41-69 mg/dL, Starting on Tue03/13/25 at 1239, For Patients who can take oral AND blood glucose 41-69 mg/dL Give 4 Tabs every 15 minutes. Recheck blood glucose every 15 minutes and repeat 15 grams of carbohydrates until blood glucose is above 70 mg/dL. Give Meal or Snack Call Provider if not resolved after 3 treatments Repeat BS in 1 hour, retime for 1 hour after blood sugar greater than 70 mg/dL hydrALAZINE (APRESOLINE) injection 10 mg 10 mg Every 4 hours PRN, intravenous, high blood pressure (specify), SBP >160, Starting on Tue03/13/25 at 1242, Hold if SBP < 100 mmHg, DBP < 50 mmHg, or patient is on pressor. Look-alike/Sound-alike medication 0622 (Given - Provider: Leann Jose RN) HYDROmorphone (DILAUDID) injection 0.5 mg 0.5 mg Every 3 hours PRN, intravenous, severe pain (7-10), Starting on Tue03/13/25 at 1239 2121 (Given - Provider: Mar Perdomo RN) ipratropium (ATROVENT) 0.02 % nebulizer solution 0.5 mg 0.5 mg Every 4 hours PRN, nebulization, wheezing, shortness of breath, Starting on Tue03/14/25 at 1034, * RESPIRATORY THERAPY TREATMENT *, What is the respiratory therapy Modality? Small volume Nebulization labetaloL (TRANDATE, NORMODYNE) injection 10 mg 10 mg Every 2 hour PRN, intravenous, hypertension (sbp greater than 160), Starting on Tue03/13/25 at 1955, Hold for systolic BP < 90 mmHg or for HR < 50 BPM 1311 (Given - Provider: Preethi Caban RN) 0621 (Given - Provider: Mar Perdomo RN)2138 (Given - Provider: Mar Perdomo, GABRIEL) 0013 (Given - Provider: Mar Perdomo RN)0527 (Given - Provider: Mar Perdomo RN) ondansetron (ZOFRAN) tablet 4 mg 4 mg Every 6 hours PRN, oral, nausea, vomiting, Starting on Tue03/13/25 at 1239 oxyCODONE (ROXICODONE) immediate release tablet 5 mg 5 mg Every 4 hours PRN, oral, moderate pain (4-6), Starting on Tue03/13/25 at 1239, Look-alike/Sound-alike medication 2035 (Given - Provider: Mar Perdomo, RN) 0246 (Given - Provider: Mar Perdomo, RN)0829 (Given - Provider: Lilia Steel, RN)1742 (Given - Provider: Lilia Steel RN) 0401 (Given - Provider: Mar Perdomo, RN)1330 (Given - Provider: Jael Cabello, GABRIEL) Linked Groups Order Group 1: dilTIAZem (CARDIZEM) injection 10 mg (COMPLETED) 10 mg Once, intravenous, On Tue03/13/25 at 1300, For 1 dose, Hold if SBP less than 100 mmHg, DBP less than 50 mmHg, or patient is on pressor. And dilTIAZem 100 mg in sodium chloride 0.9 % (NS) MBP 100 mL infusionJump to med 2-15 mg/hr Continuous (2-15 mL/hr), intravenous, Starting on Tue03/13/25 at 1300 documented in this encounter Care Teams [employer] Internship Relationship Specialty Start Date End Date Fred Solomon MD [address] [place] [facility] [address] [place] [id number] PCP - General Internal Medicine 03/12/25 documented as of this encounter
--- OUTSIDE RECORDS SUMMARY | 2025-03-13 08:50 | XMS_ITS | Encounter Summary ---
Author Organization [employer] ([place], [place], [place], [place], [place]) Address [address] [place] [address] Care Team Providers Care Sheet Metal Shop Helper Name Role Phone Fred Solomon MD Primary Care Provider + Reason for Visit * Auth/Cert (Routine) Specialty Diagnoses / Procedures Referred By Contac t Referred To Contact Diagnoses Medical history unknown UNKNOWN Procedures NC TEAEC W/PATCH GRF CAROTID VERTB SUBCLAV NECK INC ENDARTERECTOMY, CAROTID [facility] Operating Room [address] [place] [address] Phone: tel: fax: [facility] Operating Room [address] [place] [address] Phone: tel: fax: Referral ID Status Reason Start Date Expiration Date Visits Re quested Visits Authorized [id number] 1 1 Encounter Details Date Type Department Care Team (Late st Contact Info) Description 03/13/2025 8:50 AM EST Anesthesia Event [facility] Operating Room [address] [place] [address] Jackeline Wilkes MD [address] [place], [place] [id number] Yani Pugh Anesthesia Record Procedure Summary Procedure Name Responsible Anesthesiologist Anesthesia Start Time Anesthesia Stop Time ENDARTERECTOMY, CAROTID (Left) Jackeline Wilkes MD 03/13/25 0850 03/13/25 1112 Events Date Time Event Comment 03/13/2025 0850 An Start Patient identif ied and chart reviewed. 0850 An Start Data Anesthesia mac salvador and monitors checked. 0901 Pre-Induction Eval FDA anest hesia machine pre-use checkout completed. Patient status reassessed prior to start of anesthesia care. 0901 An Induction 0904 An Intubation 0910 Anesthesia Ready 0939 An Carotid On 1025 An Carotid Off 1042 Quick Note FSBG 173 mg/dL 1050 An Extubation 1057 an stop data 1111 Handoff to Receiving I compl eted my handoff to the receiving clinician during which we: 1. Identified the patient. 2. Identified the responsible provider. 3. Reviewed the pertinent medical history. 4. Discussed the surgical course. 5. Reviewed intra-op anesthesia management and issues during anesthesia. 6. Set expectations for post-procedure period. 7. Allowed opportunity for questions and acknowledgement of understanding. 1112 An Stop Meds Name Total fentaNYL (SUBLIMAZE) injection 100 mcg glycopyrrolate (ROBINUL) injection 0.6 m g ondansetron (ZOFRAN) injection vial 4 mg phenylephrine (EMILY-SYNEPHRIN E) 10 mg in dextrose 5 % (D5W) 250 mL infusion 3,960 mcg propofol (DIPRIVAN) injection 10 mg/mL b olus 100 mg protamine IV push 40 mg rocuronium (ZEMURON) 100 mg/10 mL inject ion 40 mg ceFAZolin (ANCEF) 2 g in sodium chloride 0.9 % (NS) MBP 50 mL IVPB 2 g heparin injection 1,000 units/mL for IV bolus/dialysis lock 9,000 Units phenylephrine (EMILY-SYNEPHRINE) injection 950 mcg NITROglycerin 100 mcg/mL D5W syringe 150 mcg niCARdipine (CARDENE) 25 mg in sodium chloride 0.9 % (NS) 250 mL infusion (CMPD) 9.63 mg neostigmine (PROSTIGMINE) 1 mg/mL inject ion 4 mg lactated Ringer's infusion 500 mL sodium chloride 0.9% (NS) infusion 200 m L * Agents Name O2 N2O Air DESFLURANE * Blood No blood administrations on file. Lines, Drains, and Airways Type Details Placement Removal Wound 03/13/25; 947; Incision; Neck; Left 03/13/25 0948 by Alisa Camejo RN External Urinary Catheter 03/13/25; 03/13/25199903/13/25 0000 by Lisette Higgins RN 03/13/251999 by Leann Jose RN Peripheral IV Placement Date: 03/13/25; Placement Time: 075; Size: 18 G; Orientation: Distal, Left, Posterior; Location: Forearm; Site Prep: Chlorhexidine ; Local Anesthetic: None; Insertion attempts: 1; Securement Method: Taped; Removal Date: 03/14/25; Removal Time: 1999; Removal Reason: Removed by patient 03/13/25 0758 by Georgette Ospina RN 03/14/251999 by Mar Perdomo RN Peripheral IV Placement Date: 03/13/25; Placement Time: 757; Size: 18 G; Orientation: Left; Location: Antecubital; Site Prep: Chlorhexidine ; Local Anesthetic: None; Insertion attempts: 2; Securement Method: Taped; Removal Date: 03/16/25; Removal Time: 1421 03/13/25 0758 by Georgette Ospina RN 03/16/25 1421 by Lilia Steel RN ETT Placement Date 03/13; Placement Time 0904 (created via procedure documentation); Airway Size 7.5; Airway Cuffed Yes; Removal Date 03/13/25; Removal Time 1050 03/13/25 0904 by Yani Pugh 03/13/25 1050 by Yani Pugh Arterial Line Placement Date: 03/13/25; Placement Time: 1000 (created via procedure documentation); Orientation: Left; Location: Radial; Removal Date: 03/16/25; Removal Time: 1000 03/13/25 1000 by Yani Pugh 03/16/25 1000 by Jael Cabello RN documented in this encounter Social History Tobacco [...] of this encounter OR Notes * Anesthesia Postprocedure Evaluation - Reece Whiteside CRNA - 03/13/2025 11:11 AM EST Patient: Dilia Chester Procedure Summary Date: 03/13/25 Room / Location: [facility] OPERATING ROOM Anesthesia Start: 0850 Anesthesia Stop: Procedure: ENDARTERECTOMY, CAROTID (Left) Diagnosis: Medical history unknown (UNKNOWN) Surgeons: Eagle Quiles DO Responsible Provider: Jackeline Wilkes MD Anesthesia Type: general ASA Status: 4 Anesthesia Type: general Vitals Value Taken Time BP 131/62 03/13/25 11:07 Temp 97.3 03/13/25 11:11 Pulse 85 03/13/25 11:11 Resp 16 03/13/25 11:11 SpO2 95 % 03/13/25 11:11 Vitals shown include unfiled device data. Ht 1.6 m (5' 3 ) Wt 73 kg (161 lb) BMI 28.52 kg/m?? Anesthesia Post Evaluation Patient participation: complete - patient participated Level of consciousness: awake Pain management: adequate Airway patency: patent Respiratory status: nasal cannula and spontaneous ventilation Cardiovascular status: stable Hydration status: stable Color: Winder Activity: Moves 4 extremities Inotropes/Vasopressors: N/A No notable events documented. Reece Whiteside CRNA 03/13/2025 11:11 AM EST AGE INSPECTOR * Anesthesia Procedure Notes - Yani Pugh - 03/13/2025 9:17 AM EST Associated Order(s): Intubation Intubation Authorized by: Jackeline Wilkes MD Performed by: Yani Pugh Date/Time: 03/13/2025 9:04 AM Reason: elective Indications and Patient Condition Indications for airway management: anesthesia and airway protection Sedation level: general anesthesia Preoxygenated: yesPatient position: sniffing MILS maintained throughout: yes Mask difficulty assessment: 1 - vent by mask Planned trial extubation: yes Final Airway Details Final airway type: endotracheal airway Endotracheal tube type: ETT Cuffed: yes Successful intubation technique: direct laryngoscopy Adjuncts used in placement: intubating stylet Endotracheal tube insertion site: oral Blade: Imelda Blade size: #3 ETT size (mm): 7.5 Cormack-Lehane Classification: grade I - full view of glottis Placement verified by: chest auscultation and capnometry Cuff volume (mL): 10 Measured from: gums ETT to gums (cm): 21 Number of attempts at approach: 1 Additional Comments Atraumatic Intubation. Lips, gums, and dentition unchanged and as preop. Bilateral BS and chest rise, ETCO2 confirmed Cosigned by Reece Whiteside CRNA at 03/13/2025 11:12 AM EST AGE INSPECTOR AGE INSPECTOR * Anesthesia Preprocedure Evaluation - Reece Whiteside CRNA - 03/13/2025 9:16 AM EST ANESTHESIA PREOPERATIVE EVALUATION Patient: Dilia Crowley [facility] Anesthesia Start Date/Time: 03/13/2550 Procedure: ENDARTERECTOMY, CAROTID (Left) - EEG [id number] Location: [facility] OR [address] [place] [address] OPERATING ROOM Surgeons: Eagle Quiles DO Vitals: 03/13/25 0735 03/13/25 0828 03/13/25 0834 03/13/25 0840 BP: 119/65 134/65 (!) 141/80 Pulse: 78 76 74 Resp: 16 14 Temp: 97.1 ??F (36.2 ??C) TempSrc: Temporal Artery SpO2: 91% 98% Weight: 73 kg (161 lb) Height: 1.6 m (5' 3 ) Allergies Allergen Reactions Lidocaine Hives Latex Rash Current Outpatient Medications Medication Instructions albuterol 90 mcg/actuation inhaler Every 6 hours PRN amLODIPine (NORVASC) 10 mg, Every morning aspirin 81 mg, Every evening atorvastatin (LIPITOR) 20 mg, Every Night carvediloL (COREG) 12.5 mg, 2 times daily with breakfast and dinner cetirizine (ZYRTEC) 10 mg, Every morning DULoxetine (CYMBALTA) 30 mg, Every morning empagliflozin-linagliptin (Glyxambi) 10-5 mg per tablet 1 tablet, Every evening gabapentin (NEURONTIN) 100 mg, 2 times daily magnesium aspart,citrate,oxide 400 mg magnesium cap Every morning metoprolol tartrate (LOPRESSOR) 12.5 mg, Every evening morphine sulfate (MORPHINE, BULK, MISC) Receives Morphine through intrathecal pump. Pt does not know concentration or rate.. mv-mn/folic acid/K1/genistein (CENTRUM MENOPAUSE MULTIVITAMIN ORAL) Every morning ondansetron (ZOFRAN) 4 mg, Every 6 hours PRN pantoprazole (PROTONIX) 40 mg, Every morning rOPINIRole (REQUIP) 1 mg, Every evening rOPINIRole (REQUIP) 0.5 mg, Every morning umeclidinium-vilanteroL (Anoro Ellipta) 62.5-25 mcg/actuation dsdv Every evening INPATIENT MEDICATIONS insulin lispro 2-6 Units subcutaneous Once Problem List as of 03/12/2025 PVD SMOKER [...] Mild to moderate AI, mild tr Chemistry Component Value Date/Time NA 128 (L) 03/12/2025 1714 K 4.4 03/12/20251713 CL 93 (L) 03/12/20251713 CO2 22 03/12/20251713 BUN 35.8 (H) 03/12/2025 171 CREATININE 2.08 (H) 03/12/20251713 Component Value Date/Time CALCIUM 8.8 03/12/20251713 ALKPHOS 115 03/12/20251713 AST 22 03/12/2025 1714 ALT 11 03/12/2025 1714 BILITOT 0.3 03/12/2025 1714 Lab Results Component Value Date WBC 6.8 03/12/2025 HGB 10.0 (L) 03/12/2025 HCT 29.5 (L) 03/12/2025 MCV 89 03/12/2025 PLT 223 03/12/2025 Clinical information reviewed: Date of last liquid: 03/12/25 Time of last liquid: 2344 Date of last solid: 03/12/25 Time of last solid: 2199 Physical Exam Airway Mallampati: III TM distance: >3 FB Neck ROM: full Cardiovascular (+) murmur Dental (+) lower dentures, upper dentures Pulmonary - normal exam Neurological Abdominal Anesthesia Plan ASA 4 general Patient will be monitored via standard ASA monitoring.([place] RSI - patient had jardiance today Patient has intrathecal pain pump- no idea of energy analyst. PAT is contacting reps to address plan for surgery) Anesthetic plan and risks discussed with patient. Physical Exam Airway Mallampati: III TM distance: >3 FB Neck ROM: full Cardiovascular (+) murmur Dental (+) lower dentures, upper dentures Pulmonary - normal exam Abdominal Anesthesia Plan ASA 4 Planned anesthetic: general (Tammy RSI - patient had jardiance today Patient has intrathecal pain pump- no idea of energy analyst. PAT is contacting reps to address plan for surgery) Informed Consent- Anesthetic plan and risks discussed with patient. AGE INSPECTOR * Anesthesia Procedure Notes - Yani Pugh - 03/13/2025 8:35 AM EST Associated Order(s): Arterial Line Arterial Line Authorized by: Jackeline Wilkes MD Performed by: Yani Pugh Date/Time: 03/13/2025 8:30 AM Guidance:surface landmarks Patient location: OR Indication: continuous blood pressure monitoring Procedure Detail Catheter size: 20 G Catheter length: 1 and 3/4 inch Catheter type: Arrow Seldinger technique used. Site: left radial artery Securement method: suture Events: patient tolerated procedure well with no complications Comments Ropivacaine used for numbing agent Cosigned by Reece Whiteside CRNA at 03/13/2025 9:15 AM EST AGE INSPECTOR AGE INSPECTOR documented in this encounter Plan of Treatment Not on file documented as of this encounter Procedures Procedure Name Priority Date/Time Associated Diagnosis Comments ANESTHESIA INTUBATION Routine 03/13/2025 9:04 AM EST ANESTHESIA ARTERIAL LINE PLACEMENT Routine 03/13/2025 8:30 AM EST documented in this encounter Results * AN SINGLE LUMEN INTUBATION (03/13/2025 9:04 AM EST) Reece Schroeder CRNA - 03/13/2025 9:04 AM EST eRece Whiteside CRNA 03/13/2025 11:12 AM Intubation Authorized by: Jackeline Wilkes MD Performed by: Yani Pugh Date/Time: 03/13/2025 9:04 AM Reason: elective Indications and Patient Condition Indications for airway management: anesthesia and airway protection Sedation level: general anesthesia Preoxygenated: yesPatient position: sniffing MILS maintained throughout: yes Mask difficulty assessment: 1 - vent by mask Planned trial extubation: yes Final Airway Details Final airway type: endotracheal airway Endotracheal tube type: ETT Cuffed: yes Successful intubation technique: direct laryngoscopy Adjuncts used in placement: intubating stylet Endotracheal tube insertion site: oral Blade: Imelda Blade size: #3 ETT size (mm): 7.5 Cormack-Lehane Classification: grade I - full view of glottis Placement verified by: chest auscultation and capnometry Cuff volume (mL): 10 Measured from: gums ETT to gums (cm): 21 Number of attempts at approach: 1 Additional Comments Atraumatic Intubation. Lips, gums, and dentition unchanged and as preop. Bilateral BS and chest rise, ETCO2 confirmed us Jackeline Wilkes MD ANESTHESIA ORDERABLES Jie l Result * Arterial Line (03/13/2025 8:30 AM EST) Reece Schroeder CRNA - 03/13/2025 8:30 AM EST Reece Whiteside GPS NAVIGATION INSTALLER 03/13/2025 9:15 AM Arterial Line Authorized by: Jackeline Wilkes MD Performed by: Yani Pugh Date/Time: 03/13/2025 8:30 AM Guidance:surface landmarks Patient location: OR Indication: continuous blood pressure monitoring Procedure Detail Catheter size: 20 G Catheter length: 1 and 3/4 inch Catheter type: Arrow Seldinger technique used. Site: left radial artery Securement method: suture Events: patient tolerated procedure well with no complications Comments Ropivacaine used for numbing agent us Jackeline Wilkes MD ANESTHESIA ORDERABLES Jie l Result documented in this encounter Visit Diagnoses Not on filedocumented in this encounter Administered Medications Inactive Administered Medications - up to 3 most recent administrations Medication Order MAR Action Action Date Dose Rate Site ceFAZolin (ANCEF) 2 g in sodium chloride 0.9 % (NS) MBP 50 mL IVPB 2 g Once, intravenous, Administer over 30 Minutes, On Tue03/13/25 at 0800, For 1 dose, Please choose an indication: Surgical Prophylaxis New Bag 03/13/2025 9:08 AM EST 2 g fentaNYL PF (SUBLIMAZE) injection As needed, intravenous, Starting on Tue03/13/25 at 0901, Anesthesia Intra-op Given 03/13/2025 9:49 AM EST 50 mcg Given 03/13/2025 9:01 AM EST 50 mcg glycopyrrolate (ROBINUL) injection As needed, intravenous, Starting on Tue03/13/25 at 1032, Anesthesia Intra-op Given 03/13/2025 10:32 AM EST 0.6 m g heparin 1,000 Units/mL injection As needed, intravenous, Starting on Tue03/13/25 at 0925, Anesthesia Intra-op Given 03/13/2025 10:12 AM EST 1, 000 Units Given 03/13/2025 9:25 AM EST 8,000 Units lactated Ringer's infusion 100 mL/hr Continuous, intravenous, Starting on Tue03/13/25 at 0800 Rate/Dose Change 03/13/2025 8:50 AM EST 500 mL/hr New Bag 03/13/2025 7:59 AM EST 100 mL/hr 100 mL/hr neostigmine methylsulfate (PROSTIGMINE) injection As needed, intravenous, Starting on Tue03/13/25 at 1032, Anesthesia Intra-op Given 03/13/2025 10:32 AM EST 4 mg niCARdipine (CARDENE) 25 mg in sodium chloride 0.9 % (NS) 250 mL infusion (CMPD) Continuous PRN, intravenous, Starting on Tue03/13/25 at 1019, Anesthesia Intra-op Rate/Dose Change 03/13/2025 10:39 AM EST 15 mg/hr 150 mL/hr Rate/Dose Change 03/13/2025 10:38 AM EST 10 mg/hr 100 mL /hr Rate/Dose Change 03/13/2025 10:33 AM EST 5 mg/hr 50 mL/ hr NITROglycerin 100 mcg/mL D5W syringe As needed, intravenous, Starting on Tue03/13/25 at 1019, Anesthesia Intra-op Given 03/13/2025 10:38 AM EST 50 mc g Given 03/13/2025 10:35 AM EST 50 mcg Given 03/13/2025 10:19 AM EST 50 mcg ondansetron (ZOFRAN) injection As needed, intravenous, Starting on Tue03/13/25 at 1032, Anesthesia Intra-op Given 03/13/2025 10:32 AM EST 4 mg phenylephrine (EMILY-SYNEPHRINE) 10 mg in dextrose 5 % (D5W) 250 mL infusion Continuous PRN, intravenous, Starting on Tue03/13/25 at 0926, Anesthesia Intra-op Rate/Dose Change 03/13/2025 9:50 AM EST 75 mcg/min 112.5 mL/hr Rate/Dose Change 03/13/2025 9:38 AM EST 90 mcg/min 135 mL/ hr Rate/Dose Change 03/13/2025 9:35 AM EST 75 mcg/min 112.5 m L/hr phenylephrine (EMILY-SYNEPHRINE) injection As needed, intravenous, Starting on Tue03/13/25 at 0924, Anesthesia Intra-op Given 03/13/2025 10:28 AM EST 100 m cg Given 03/13/2025 10:07 AM EST 150 mcg Given 03/13/2025 10:00 AM EST 100 mcg propofol (DIPRIVAN) injection 10 mg/mL bolus As needed, intravenous, Starting on Tue03/13/25 at 0901, Anesthesia Intra-op Given 03/13/2025 9:01 AM EST 100 mg protamine injection As needed, intravenous, Starting on Tue03/13/25 at 1026, Anesthesia Intra-op Given 03/13/2025 10:30 AM EST 20 mg Given 03/13/2025 10:29 AM EST 10 mg Given 03/13/2025 10:26 AM EST 10 mg rocuronium (ZEMURON) injection As needed, intravenous, Starting on Tue03/13/25 at 0901, Anesthesia Intra-op Given 03/13/2025 9:02 AM EST 30 mg Given 03/13/2025 9:01 AM EST 10 mg sodium chloride 0.9 % infusion Continuous PRN, intravenous, Starting on Tue03/13/25 at 0901, Anesthesia Intra-op New Bag 03/13/2025 9:01 AM EST documented in this encounter Care Teams Sheet Metal Shop Helper Relationship Specialty Start Date End Date Fred Solomon MD [address] [place] [id number] PCP - General Internal Medicine 03/12/25 documented as of this encounter
[2025-04-03 14:23] LABS: Reticulocyte % (Auto) 2.2 % (0.9-3.2)
--- OUTSIDE RECORDS SUMMARY | 2025-04-03 14:56 | XMS_ITS | Clinical Summary ---
Author Organization [facility] Address [address] [place] [address] Care Team Providers Care Archaeologist Name Role Phone JuanitoFred Pauly HARRELL Primary Care Provider [phone] Allergies Active Allergy Reactions Criticality Noted Date [...] tablet Take 0.5 tablets by mouth daily. 5 Active Active Problems Problem Noted Date Diagnosed Date Hypertension 10/25/2024 Iron deficiency anemia 10/25/2024 Other hyperlipidemia 10/25/2024 Resolved Problems Problem Noted Date Diagnosed Date Resolved Date Acute kidney injury 10/25/2024 01/28/20 Immunizations Immunization Administration Dates Next Due Hep B, adult 11/16/2001,06/16/2001,05/19/2001 Influenza, injectable, quadrivalent 01/24/2018,1 Influenza, injectable, quadr ivalent, preservative free 02/14/2023,02/20/2019 Family History Medical History Relation Name Comments Conversions - Other Brother 1 CAD (cor onary artery disease), [place] coronary artery Diabetes Brother 2 Thyroid cancer Brother 3 Colon cancer Father Conversions - Other Father CAD (cor onary artery disease), [place] coronary artery Diabetes Father Stroke Father No [...] Description 04/05/2025 1:00 PM EST Office Visit [facility] [address] [place] [phone] Eagle Egan MD [address] [place] [phone] Health Maintenance Due Date Last Done [...] Cancer Screening 2006 [facility]-Breast Cancer Screening 2011 [facility]-RSV Vaccine: 60+ Years or (1 - Risk 50-74 years 1-dose series) 2011 [facility]-Zoster Vaccines (1 of 2) 2011 [id number]-70 Vaccine (3 - season) 2024 04/27/2021, 06/26/2020 [facility]-Influenza Vaccine (#1) 12/17/202402/14, 02/20/2019, 01/24/2018, Additional history exists [facility]-Obesity Intervention Completed 12/12/2024, 0712/2024 HPV Vaccines (No Doses Required) Completed [facility]-HIB Vaccines Aged Out No longer e [...] to complete this topic Insurance [place] [id number] [facility] MEDICARE Care Teams Archaeologist Relationship Specialty Start Date End Date Fred Solomon DO [address] [place], [place] [address] [facility] - General 11/13/24
[2025-04-03 14:57] LABS: Iron 114 ug/dL (37-170)
--- OUTSIDE RECORDS SUMMARY | 2025-04-03 15:00 | XMS_ITS | Clinical Summary ---
Author Organization [employer] ([place], [place], [place], [place], [place]) Address [address] [place] [address] Care Team Providers Care Automation/Controls Manager Name Role Phone Fred Solomon MD Primary Care Provider + Allergies Active Allergy Reactions Criticality Noted Date Comments Latex Rash Low 03/11/2025 Lidocaine Hives High 03/11/2025 Medications magnesium aspart,citrate,o xide 400 mg magnesium cap Take by mouth in the morning. Active amLODIPine (NORVASC) 10 MG tablet Take 1 tablet (10 mg total) by mouth in the morning. Active albuterol 90 mcg/actuation inhaler Inhale by mouth every 6 (six) hours as needed for wheezing. Active atorvastatin (LIPITOR) 20 MG tablet Take 1 tablet (20 mg total) by mouth nightly. Active ondansetron (ZOFRAN) 4 MG tablet Take 1 tablet (4 mg total) by mouth every 6 (six) hours as needed for nausea or vomiting. Active pantoprazole (PROTONIX) 40 MG tablet Take 1 tablet (40 mg total) by mouth in the morning. Active carvediloL (COREG) 12.5 MG tablet Take 1 tablet (12.5 mg total) by mouth 2 (two) times daily with breakfast and dinner. Active rOPINIRole (REQUIP) 1 MG tablet Take 1 tablet (1 mg total) by mouth every evening. Active rOPINIRole (REQUIP) 0.5 MG tablet Take 1 tablet (0.5 mg total) by mouth in the morning. Active gabapentin (NEURONTIN) 100 MG capsule Take 1 capsule (100 mg total) by mouth 2 (two) times daily. Active DULoxetine (CYMBALTA) 30 MG capsule Take 1 capsule (30 mg total) by mouth in the morning. Active empagliflozin-li nagliptin (Glyxambi) 10-5 mg per tablet Take 1 tablet by mouth every evening. Active umeclidinium-mariela anteroL (Anoro Ellipta) 62.5-25 mcg/actuation dsdv Inhale by mouth every evening. Active mv-mn/folic acid/K1/genistei n (CENTRUM MENOPAUSE MULTIVITAMIN ORAL) Take by mouth in the morning. Active cetirizine (ZyrTEC) 10 MG tablet Take 1 tablet (10 mg total) by mouth in the morning. Active metoprolol tartrate (LOPRESSOR) 25 MG tablet Take 0.5 tablets (12.5 mg total) by mouth every evening. Active aspirin 81 MG EC tablet Take 1 tablet (81 mg total) by mouth every evening. Active morphine sulfate (MORPHINE, BULK, MISC) Receives Morphine through intrathecal pump. Pt does not know concentration or rate.. Active oxyCODONE (ROXICODONE) 5 MG immediate release tablet Take 1 tablet (5 mg total) by mouth every 6 (six) hours as needed for up to 10 days Look-alike/Soun d-alike medication. Max Daily Amount: 20 mg 40 tablet 03/16/20 025 Active Problems Problem Noted Date Diagnosed Date More than 50 percent stenosi s of left internal carotid artery 03/13/2025 Stenosis of left internal carotid artery 025 Encounters Date Type Department Care Team Description 03/13/2025 9:28 AM EST - 03/13/2025 12:19 PM EST Surgery [facility] Operating Room [address] [place] [id number] Eagle Quiles DO ENDARTERECTOMY, CAROTID 03/13/2025 8:50 AM EST Anesthesia Event [facility] Operating Room [address] [place] [address] Jackeline Wilkes MD Bholat, Abdullah 03/13/2025 6:10 AM EST - 03/16/2025 2:38 PM EST Hospital Encounter [facility] Cardiothoracic Vascular Unit [address] [place] [phone] Eagle Quiles DO Respiratory insufficiency (Primary Dx); Medical history unknown Discharge Disposition: Home or Self Care 03/12/2025 11:59 PM EST Anesthesia Event [facility] Operating Room [address] [place] [address] Tani Jeffers MD 03/12/2025 4:06 PM EST - 03/12/2025 8:27 PM EST Emergency [facility] Emergency Department [address] [place] [phone] Tiffani Lim MD Gilbert, Cody, DO Hyperglycemia (Primary Dx) Discharge Disposition: Home or Self Care 03/12/2025 1:25 PM EST - 03/12/2025 4:05 PM EST Hospital Encounter [facility] Preadmission Testing [address] [place] [phone] Eagle Quiles DO Preop testing (Primary Dx) Discharge Disposition: Home or Self Care 03/12/2025 Travel 02/22/2025 9:50 AM EST - 02/22/2025 11:59 PM EST Hospital Encounter [facility] [address] [facility] [address] [place] [address] Eagle Quiles DO Carotid stenosis Discharge Disposition: Home or Self Care from Last 3 Months Social History Tobacco Use Types Packs/Day Years [...] Mass Index 28.52 03/13/2025 7:35 AM EST Plan of Treatment Health Maintenance Due Date Last Done Comments CT Colonography 1961 Colonoscopy 1961 Colorectal Cancer Screening 1961 FOBT/FIT 1961 Fit-DNA (Cologuard) 1961 Sigmoidoscopy 1961 Depression Screening (12+) 1973 Tobacco Cessation Counseling and Screening (12+) 1973 HIV Screening 01/22/1976 Hepatitis C Screening 1979 DTAP/TDAP/TD VACCINES (1 - Tdap) 01/22/1980 Pneumococcal 50+ years (1 of 2 - PCV) 01/22/1980 Pap Smear 1982 Breast Cancer Screening 2001 Lipid Panel 2006 Shingles Vaccine (Zoster) (1 of 2) 2011 COVID-19 VACCINE (3 - season) 12/17/202401/2022, 06/26/2020 Influenza Vaccine (#1) 2024 Medicare IPPE (Welcome to Medicare) G0402 02/17/2026 Respiratory Syncytial Virus (RSV) Adult or (1 - 1-dose 75+ series) 01/22/2036 Medical Devices Implanted Type Area Thoracic Surgeon Device Identifier Shelf Expiration Date Model / Serial / Lot [facility] Vasc Biologic [id number] [id number] - [id number] Implanted:Qty : 1 on 03/13/2025 by Eagle Quiles DO at [facility] IMPLANTS Left: Carotid Artery LEMAITRE VASCULAR 07/16/2030 [id number] / / [id number] Procedures Procedure Name Priority Date/Time Associated Diagnosis [...] GLUCOSE POC Routine 03/14/2025 6:[address] [facility] CBC SCAN Routine 03/14/2025 3:20 AM EST CALCIUM, IONIZED Routine 03/14/2025 3:20 AM EST MAGNESIUM Routine 03/14/2025 3:20 AM EST COMPREHENSIVE METABOLIC PANEL Routine 03/14/2025 3:20 AM EST CBC W/ AUTO DIFF Routine 03/14/2025 3:20 AM EST BLOOD GAS, ARTERIAL Routine 03/13/2025 1 1:25 PM EST NOVA GLUCOSE POC Routine 03/13/2025 11:2 4 PM EST CBC W/ AUTO DIFF DEONTE 03/13/2025 9:27 PM EST CALCIUM, IONIZED DEONTE 03/13/2025 9:27 PM EST PHOSPHORUS DEONTE 03/13/2025 9:27 PM EST MAGNESIUM Routine 03/13/2025 9:27 PM EST COMPREHENSIVE METABOLIC PANEL Routine 03/13/2025 9:27 PM EST NOVA GLUCOSE POC Routine 03/13/2025 9:25 PM EST XR CHEST AP PORTABLE DEONTE 03/13/2025 8:26 PM EST BLOOD GAS, ARTERIAL STAT 03/13/2025 8 :13 PM EST NOVA GLUCOSE POC Routine 03/13/2025 4:2 9 PM EST NOVA GLUCOSE POC Routine 03/13/2025 1:09 PM EST NOVA GLUCOSE POC Routine 03/13/2025 11:0 9 AM EST NOVA GLUCOSE POC Routine 03/13/2025 10:4 1 AM EST TISSUE EXAM (DARIUSZ AR) AP Routine 03/13/2025 9 :46 AM EST Medical history unknown ANESTHESIA INTUBATION Routine 03/13/2025 9:04 AM EST ME TEAEC W/PATCH GRF CAROTID VERTB SUBCLAV NECK INC 03/13/2025 8:50 AM EST Medical history unknown NOVA GLUCOSE POC Routine 03/13/2025 8:42 AM EST ANESTHESIA ARTERIAL LINE PLACEMENT Routine 03/13/2025 8:30 AM EST ANTIBODY SCREEN - ABSCPEG ([place] BKR) Routine 03/13/2025 7:05 AM EST ABO/RH - ABORHTUBE ([place] BKR) Routine 03/13/2025 7:05 AM EST TYPE AND SCREEN ([place] BKR) STAT 03/13/2025 7:05 AM EST NOVA GLUCOSE POC Routine 03/13/2025 6:32 AM EST NOVA GLUCOSE POC Routine 03/12/2025 8:01 PM EST URINALYSIS, REFLEX MICROSCOPIC AND CULTURE IF INDICATED STAT 03/12/2025 7:35 PM EST CG8+ ONDINA POC Routine 03/12/2025 6:06 PM EST NOVA GLUCOSE POC Routine 03/12/2025 6:01 PM EST ABO/RH CONFIRMATION/RETYPE ([place] BKR) Routine 03/12/2025 5:14 PM EST MAGNESIUM STAT 03/12/2025 5:14 PM EST COMPREHENSIVE METABOLIC PANEL STAT 03/12/2025 5:14 PM EST CBC W/ AUTO DIFF STAT 03/12/2025 5:14 PM EST NOVA GLUCOSE POC Routine 03/12/2025 4:05 PM EST NOVA GLUCOSE POC Routine 03/12/2025 4:04 PM EST CBC W/ AUTO DIFF STAT 03/12/2025 2:33 PM EST Preop testing PT/INR, PTT STAT 03/12/2025 2:33 PM EST Preop testing BASIC METABOLIC PANEL STAT 03/12/2025 2:33 PM EST Preop testing FS_MODEL_IP_ECG 12-LEAD Routine 03/12/2025 1:53 PM EST Preop testing EKG-SCANNED 03/12/2025 CTA NECK Routine 02/22/2025 10:16 AM EST Carotid stenosis from Last 3 Months Results * (ABNORMAL) Glucose, Nova Meter (03/16/2025 12:23 PM EST) Only the most recent of39 resultswithin the time period is included. POC-GLUCOSE 198(H) 70 - 110 mg/dL 03/16/2025 12:26 PM EST [facility] Comment:In the event of poor peripheral blood flow, venous or arterial blood should be used due to the potential of erroneous results. Gallery Or Museum Curator [phone] 03/16/2025 12:26 PM EST [facility] Blood WHOLE BLOOD / Unknown 03/16/2025 12:23 PM EST 03/16/2025 12:26 PM EST Narrative [facility] - 03/16/2025 12:26 PM EST Notified RN/MD us Eagle Iltis DO POINT OF CARE TEST ORDERABLES Fi nal Result [facility] [address] [phone] * (ABNORMAL) CBC with Automated Diff (03/16/2025 7:36 AM EST) Only the most recent of5 resultswithin the time period is included. WBC 8.1 4.0 - 10.0 K/ L 03/16/2025 7:45 AM EST [facility] RBC 2.79(L) 3.93 - 5.22 M/ L 03/16/2025 7:45 AM EST [facility] Hemoglobin 8.2(L) 11.2 - 15.7 GM/DL 03/16/2025 7:45 AM EST [facility] Hematocrit 24.9(L) 34.1 - 44.9 % 03/16/2025 7:45 AM [facility] MCV 89 79 - 95 fL 03/16/2025 7:45 AM [facility] MCH 29.4 25.6 - 32.2 pg 03/16/2025 7:45 AM [facility] MCHC 32.9 32.2 - 35.5 GM/DL 03/16/2025 7:45 AM [facility] RDW 13.2 11.7 - 14.4 % 03/16/2025 7:45 AM [facility] Platelets 187 140 - 375 K/CU MM 03/16/2025 7:45 AM [facility] MPV 9.3(L) 9.4 - 12.3 fL 03/16/2025 7:45 AM [facility] % Neutros 77(H) 34 - 71 % 03/16/2025 7:45 AM [facility] % Lymphs 11(L) 19 - 52 % 03/16/2025 7:45 AM [facility] % Monos 9 5 - 13 % 03/16/2025 7:45 AM [facility] % Eos 2.6 1.0 - 6.0 % 03/16/2025 7:45 AM [facility] % Baso 0 0 - 1 % 03/16/2025 7:45 AM [facility] NRBC Absolute <0.01 0 - 0.012 K/ul 03/16/2025 7:45 AM [facility] # Neutros 6.23(H) 1.56 - 6.13 K/ L 03/16/2025 7:45 AM [facility] # Lymphs 0.87(L) 1.18 - 3.74 K/ L 03/16/2025 7:45 AM [facility] # Monos 0.74 0.24 - 0.86 K/ L 03/16/2025 7:45 AM [facility] # Eos 0.21 0.04 - 0.36 K/ L 03/16/2025 7:45 AM [facility] # Baso <0.03 0.01 - 0.08 K/ L 03/16/2025 7:45 AM [facility] % Imm Grans 0.50(H) 0.01 - 0.43 % 03/16/2025 7:45 AM [facility] # IG 0.04(H) 0.00 - 0.03 K/uL 03/16/2025 7:45 AM [facility] Blood Venipuncture / Unknown 03/16/2025 7:36 AM EST 03/16/2025 7:41 AM EST [facility] - 03/16/2025 7:45 AM EST When [...] Dliw LAB BLOOD ORDERABLES Final Resu lt [facility] [address] [phone] * (ABNORMAL) Comprehensive metabolic panel (03/16/2025 7:36 AM EST) Only the most recent of5 resultswithin the time period is included. Sodium 139 136 - 145 meq/L 03/16/2025 7:58 AM [facility] Potassium 3.7 3.4 - 5.1 meq/L 03/16/2025 7:58 AM [facility] Chloride 104 98 - 112 meq/L 03/16/2025 7:58 AM [facility] CO2 24 22 - 29 meq/L 03/16/2025 7:58 AM [facility] Calcium 8.9 8.4 - 10.2 mg/dL 03/16/2025 7:58 AM [facility] Glucose 174(H) 82 - 115 mg/dL 03/16/2025 7:58 AM [facility] BUN 31.0(H) 9.8 - 20.1 mg/dL 03/16/2025 7:58 AM [facility] Creatinine 1.47(H) 0.50 - 1.20 mg/dL 03/16/2025 7:58 AM [facility] BUN/Creatinine 21(H) 8 - 20 03/16/2025 7:58 AM [facility] eGFR (mL/min/1.73m2) 40(L) >=60 mL/min/1.7 3m2 03/16/2025 7:58 AM [facility] Comment:ESTIMATED GFR IS NOT ACCURATE CREATININE CLEARANCE IN PREDICTING GLOMERULAR FILTRATION RATE. ESTIMATED GFR IS NOT APPLICABLE FOR DIALYSIS PATIENTS. Albumin 3.1(L) 3.5 - 5.0 g/dL 03/16/2025 7:58 AM [facility] Alkaline Phosphatase 85 40 - 150 U/L 03/16/2025 7:58 AM [facility] ALT 12 <55 U/L 03/16/2025 7:58 AM [facility] AST 34 5 - 34 U/L 03/16/2025 7:58 AM [facility] Total Bilirubin 0.4 0.3 - 1.2 mg/dL 03/16/2025 7:58 AM [facility] Protein, Total 6.6 6.4 - 8.3 g/dL 03/16/2025 7:58 AM [facility] Globulin 3.5 2.5 - 4.1 g/dL 03/16/2025 7:58 AM [facility] Anion Gap 15(H) 4 - 12 03/16/2025 7:58 AM [facility] A/G Ratio 0.9 0.7 - 1.9 03/16/2025 7:58 AM [facility] Osmolality Calc 288.3 mOsm/kg 7:58 AM [facility] Blood Venipuncture / Unknown 03/16/2025 7:36 AM EST 03/16/2025 7:41 AM [facility] - 03/16/2025 7:58 AM EST Specimen slightly hemolyzed us Silvia Arredondoiw LAB BLOOD ORDERABLES Final Resu lt Performing Organization Address [facility] Co de Phone Number [facility] [address] [phone] * (ABNORMAL) CBC Scan (03/14/2025 3:20 AM EST) Platelet Estimate Adequate Adequate 025 4:12 AM EST [facility] RBC Morphology abnormal(A) Normal 4:12 AM EST [facility] Anisocytosis 1+ 03/14/2025 4:12 AM EST [facility] Hypochromia 1+ 03/14/2025 4:12 AM EST [facility] Polychromasia 1+ 03/14/2025 4:12 AM EST [facility] Blood Venipuncture / Unknown 03/14/2025 3:20 AM EST 03/14/2025 3:25 AM EST us Eagle Iltis DO LAB BLOOD ORDERABLES Final Resul t Performing Organization Address [facility] Co de Phone Number [facility] [address] [phone] * CALCIUM Ionized (03/14/2025 3:20 AM EST) Only the most recent of2 resultswithin the time period is included. Calcium Ionized 1.21 1.12 - 1.32 mmol/L 03/14/2025 3:32 AM EST [facility] Blood Venipuncture / Unknown 03/14/2025 3:20 AM EST 03/14/2025 3:25 AM EST us Eagle Iltis DO LAB BLOOD ORDERABLES Final Resul t Performing Organization Address City/[facility] Co de Phone Number [facility] [address] [phone] * Magnesium (03/14/2025 3:20 AM EST) Only the most recent of3 resultswithin the time period is included. Magnesium 2.4 1.6 - 2.6 mg/dL 03/14/2025 3:52 AM [facility] Blood Venipuncture / Unknown 03/14/2025 3:20 AM EST 03/14/2025 3:25 AM EST us Eagle Etta DO LAB BLOOD ORDERABLES Final Resul t [facility] [address] [phone] * (ABNORMAL) Blood gas, arterial (03/13/2025 11:25 PM EST) Only the most recent of2 resultswithin the time period is included. pH, Arterial 7.31(L) 7.35 - 7.45 03/13/2025 11:26 PM [facility] pCO2, Arterial 43 35 - 45 mm Hg 03/13/2025 11:26 PM [facility] pO2, Arterial 75(L) 80 - 100 mm Hg 03/13/2025 11:26 PM [facility] HCO3, Arterial 22 20 - 26 mmol/L 03/13/2025 11:26 PM [facility] Base Excess, Arterial -4.1(L) -2.0 - 2.0 mmol/L 03/13/2025 11:26 PM [facility] O2 Sat, Arterial 95.3 95.0 - 100.0 % 03/13/2025 11:26 PM [facility] CTO2 ARTERIAL 11.2 mmol/L 03/13/2025 11:26 PM [facility] THB ARTERIAL 8.4(L) 12.0 - 18.0 g/dL 03/13/2025 11:26 PM [facility] SJ COLLECTION SITE Arterial Line 03/13/2025 11:26 PM [facility] Arterial Puncture No 03/13/2025 11:26 PM [facility] Blood Gas O2 Delivery Device Cannula 03/13/2025 11:26 PM [facility] Oxygen Flow Rate 6 03/13/2025 11:26 PM [facility] Blood Gas PT Temperature C 37.0 03/13/2025 11:26 PM EST [facility] Daniele's Test Not Applicable 03/13/20 11:26 PM EST [facility] ABG Number of Draw Attempts 1 03/13/2025 11:26 PM EST [facility] FIO2 03/13/2025 11:26 PM EST [facility] Blood Gas Temperature Corrected Results No No 03/13/2025 11:26 PM EST [facility] Blood, Arterial 03/13/2025 1 1:25 PM EST 03/13/2025 11:26 PM EST Ozzy Liao BIT TAPPER LAB BLOOD ORDERABLES Final Res ult Performing Organization Address [facility]/ZIP Co de Phone Number [facility] [address] [phone] * Phosphorus (03/13/2025 9:27 PM EST) Phosphorus 3.9 2.5 - 4.5 mg/dL 03/13/2025 9:57 PM EST [facility] Blood Venipuncture / Unknown 03/13/2025 9:27 PM EST 03/13/2025 9:31 PM EST us Ozzy Liao APRN LAB BLOOD ORDERABLES Final Res ult Performing Organization Address [facility]/ZIP Co de Phone Number [facility] [address] [phone] * XR chest AP portable (03/13/2025 8:26 [...] structures are unremarkable . Procedure Note Jaison Sutheralnd MD - 03/13/2025 PORTABLE CHEST 03/13/2025 8:16 [...] Leah Sutherland. Transcribed by Dena Ayala. Ozzy Keshawn [facility] DIAGNOSTIC IMAGING ORDERAB LES Final Result * Tissue Exam (03/13/2025 9:46 AM EST) [...] atheromatous material. No thrombi material is identified. Assembler Convertible Top sections of calcified areas are submitted in block A1 following decalcification. MTS Tissue PLAQUE / Unknown 03/13/2025 9:46 AM EST us Eagle Quiles DO PATHOLOGY/CYTOLOGY ORDERABLES Fi nal Result [facility] [address] * AN SINGLE LUMEN INTUBATION (03/13/2025 9:04 AM EST) Reece Schroeder CRNA - 03/13/2025 9:04 AM EST Reece Whiteside CRNA 03/13/2025 11:12 AM Intubation Authorized [...] - 03/13/2025 8:30 AM EST Reece Whiteside CRNA 03/13/2025 9:15 AM Arterial Line Authorized by: [...] complications Comments Ropivacaine used for numbing agent Jackeline Wilkes MD ANESTHESIA ORDERABLES Jie l Result * Antibody Screen (03/13/2025 7:05 AM EST) Antibody Screen Negative 03/13/2025 8:00 AM EST [facility] ([place]) Blood Venipuncture / Unknown 03/13/2025 7:05 AM EST 03/13/2025 7:30 AM EST [facility] BLOOD [facility] TEST ORDERABLES F inal Result Performing Organization Address [facility] Co de Phone Number [facility]) [address] [place] [address] [phone] * ABO/Rh (03/13/2025 7:05 AM EST) ABO/Rh A POSITIVE 03/13/2025 8:00 AM EST [facility]) Blood Venipuncture / Unknown 03/13/2025 7:05 AM EST 03/13/2025 7:30 AM EST Result [facility] BLOOD [facility] TEST ORDERABLES F inal Result Performing Organization Address [facility] Co de Phone Number [facility] ([place]) [address] [place] [address] [phone] * Type and Screen (03/13/2025 7:05 AM EST) HISTCHK HIST CHECK PERFORMED 03/13/2025 7:30 AM EST [facility]) Blood Venipuncture / Unknown 03/13/2025 7:05 AM EST 03/13/2025 7:30 AM EST us Eagle Quiles DO [facility] BLOOD BANK TEST ORDERABLES F inal Result [facility] ([place]) [address] [place] [address], [facility] [phone] * (ABNORMAL) Urinalysis, Reflex Microscopic and Culture If Indicated (03/12/2025 7:35 PM EST) Color, UA Colorless 03/12/2025 8:30 PM [facility] Clarity, UA Clear Clear 03/12/2025 8:30 PM [facility] Specific Onset, UA 1.019 1.005 - 1.030 03/12/2025 8:30 PM [facility] pH, UA 6.0 6.0 - 8.0 03/12/2025 8:30 PM [facility] Leukocytes, UA Negative Negative 03/12/2025 8:30 PM [facility] Nitrite, UA Negative Negative 03/12/2025 8:30 PM [facility] Protein, UA Negative Negative 03/12/2025 8:30 PM [facility] Glucose, UA 4+(A) Normal 03/12/2025 8:30 PM [facility] Ketones, UA Negative Negative 03/12/2025 8:30 PM [facility] Bilirubin, UA Negative Negative 03/12/2025 8:30 PM [facility] Blood, UA Negative Negative 03/12/2025 8:30 PM [facility] Urobilinogen, UA Normal Normal 03/12/2025 8:30 PM [facility] Specimen Source Urine, Clean Catch 03/12/2025 8:30 PM [facility] Urine URINE SPECIMEN COLLECTION, CLEAN CATCH / Unknown 03/12/2025 7:35 PM EST 03/12/2025 7:54 PM EST us Trina Valdez APRN URINE ORDERABLES Final Result [facility] [address] [place], [place] [address] [phone] * (ABNORMAL) CG8+ ONDINA POC (03/12/2025 6:06 PM EST) PH, ONDINA POC 7.35 7.31 - 7.41 03/12/2025 6:11 PM [facility] CG8+ PCO2, ONDINA-POC 43.6 41 - 51 mm/Hg 03/12/2025 6:11 PM [facility] CG8+ PO2, ONDINA-POC 36 30 - 55 mm/Hg 03/12/2025 6:11 PM [facility] CG8+ HCO3, ONDINA-POC 24.0 23.0 - 28.0 mmol/L 03/12/2025 6:11 PM [facility] CG8+ BASE EXCESS, ONDINA-POC -1.0 -2.0 - 3.0 mmol/L 03/12/2025 6:11 PM [facility] CG8+ SODIUM, ONDINA-POC 134(L) 138 - 146 mmol/L 03/12/2025 6:11 PM [facility] CG8+ POTASSIUM, ONDINA-POC 3.9 3.5 - 4.9 mmol/L 03/12/2025 6:11 PM [facility] CG8+ GLUCOSE, ONDINA-POC 511(HH) 70 - 105 mg/dL 03/12/2025 6:11 PM [facility] CG8+ O2 SAT., OND[facility]- POC 67 40 - 85 % 03/12/2025 6:11 PM [facility] POC CO2 TOTAL [facility] 26 24 - 29 mmol/L 03/12/2025 6:11 PM [facility] POC HEMATOCRIT [facility] 28(L) 38 - 51 %PCV 03/12/2025 6:11 PM [facility] POC HEMOGLOBIN [facility] 9.5(L) 12.0 - 17.0 g/dL 03/12/2025 6:11 PM [facility] POC IONIZED CALCIUM [facility] 1.00(L) 1.12 - 1.32 mmol/L 03/12/2025 6:11 PM [facility] [employer] [phone] 03/12/2025 6:11 PM [facility] Blood 03/12/2025 6:06 PM EST 03/12/2025 6:11 PM EST us Tiffani Lim MD POINT OF CARE TEST ORDERABLES Final Result Performing Organization Address [facility]/ZIP Co de Phone Number [facility] [address] [phone] * ABO/RH Confirmation/Retype (03/12/2025 5:14 PM EST) RETYPE A Positive 03/13/2025 7:41 AM EST [facility] ([place]) Blood Venipuncture / Unknown 03/12/2025 5:14 PM EST 03/13/2025 7:41 AM EST us Eagle Quiles DO [facility] TEST ORDERABLES F inal Result Performing Organization Address [facility]/ZIP Co de Phone Number [facility] ([place]) [address] [phone] * PT/INR, PTT (03/12/2025 2:33 PM EST) aPTT 27.7 22.0 - 32.0 seconds 03/12/2025 2:56 PM EST [facility] Protime 10.1 9.0 - 12.0 seconds 03/12/2025 2:56 PM EST [facility] INR 0.90 0.80 - 1.10 03/12/2025 2:56 PM EST [facility] Blood Venipuncture / Unknown 03/12/2025 2:33 PM EST 03/12/2025 2:42 PM EST us Eagle Quiles DO LAB BLOOD ORDERABLES Final Resul t Performing Organization Address [facility]/ZIP Co de Phone Number [facility] [address] [phone] * (ABNORMAL) Basic Metabolic Panel (03/12/2025 2:33 PM EST) Sodium 129(L) 136 - 145 meq/L 03/12/2025 3:31 PM [facility] Potassium 4.9 3.4 - 5.1 meq/L 03/12/2025 3:31 PM [facility] CO2 25 22 - 29 meq/L 03/12/2025 3:31 PM [facility] Chloride 94(L) 98 - 112 meq/L 03/12/2025 3:31 PM [facility] Glucose 626(HH) 82 - 115 mg/dL 03/12/2025 3:31 PM [facility] BUN 35.0(H) 9.8 - 20.1 mg/dL 03/12/2025 3:31 PM [facility] Creatinine 2.17(H) 0.50 - 1.20 mg/dL 03/12/2025 3:31 PM [facility] BUN/Creatinine 16 8 - 20 03/12/2025 3:31 PM [facility] Calcium 9.4 8.4 - 10.2 mg/dL 03/12/2025 3:31 PM [facility] Anion Gap 15(H) 4 - 12 03/12/2025 3:31 PM [facility] eGFR (mL/min/1.73m2) 25(L) >=60 mL/min/1.7 3m2 03/12/2025 3:31 PM [facility] Comment:ESTIMATED GFR IS NOT ACCURATE CREATININE CLEARANCE IN PREDICTING GLOMERULAR FILTRATION RATE. ESTIMATED GFR IS NOT APPLICABLE FOR DIALYSIS PATIENTS. Osmolality Calc 296.2 mOsm/kg 3:31 PM [facility] Blood Venipuncture / Unknown 03/12/2025 2:33 PM EST 03/12/2025 2:42 PM EST us Eagle Iltis DO LAB BLOOD ORDERABLES Final Resul t [facility] [address] [place] [address], [facility] [phone] * ECG 12 lead (03/12/2025 1:53 PM EST) VENTRICULAR RATE EKG/MIN 74 BPM GE MUSE ATRIAL RATE (MCT) 74 BPM GE MUSE ME Interval 170 ms GE MUSE QRS-INTERVAL (MSEC) 78 ms GE MUSE QT Interval 500 ms GE MUSE QTC Interval 555 ms GE MUSE P [place] 64 degrees GE MUSE R AXIS (MCT) -7 degrees GE MUSE T Wave [place] 66 degrees GE MUSE [place] Diagnosis Normal sinus rhythm Low voltage QRS Prolonged QT Abnormal ECG No previous ECGs available Confirmed by Marcus Gamez ([id number]) on 03/20/2025 7:39:20 AM GE MUSE 03/12/2025 1:53 PM EST 03/20/2025 7:39 AM EST us Eagle Iltis DO ECG ORDERABLES Final Result GE MUSE * EKG-SCANNED (03/12/2025) Narrative 03/12/2025 Ordered by an unspecified provider. us Default Scanning Provider SCAN ORDERS Final Result * CTA NECK (02/22/2025 10:16 AM EST) [...] interpreted, and dictated by Ronnie Sandoval MD [facility] ORDERABLES Final Result from Last 3 Months Insurance [id number] (Home) [address] [place] [address] [place] [id number] [facility] MEDICARE ADVANTAGE Care Teams Automation/Controls Manager Relationship Specialty Start Date End Date Fred Solomon MD [address] [place] [id number] PCP - General Internal Medicine 03/12/25
--- OUTSIDE RECORDS SUMMARY | 2025-04-03 15:00 | XMS_ITS | Referral Summary ---
Author Organization [employer] ([place], [place], [place], [place], [place]) Address [address] [place] [address] Care Team Providers Care Investment Broker Name Role Phone Fred Solomon MD Primary Care Provider + Encounters Date Type Department Care Team Description 03/13/2025 6:10 AM EST - 03/16/2025 2:38 PM EST Hospital Encounter [facility] Cardiothoracic Vascular Unit [address] [place] [address] Eagle Quiles DO Respiratory insufficiency (Primary Dx); Medical history unknown Discharge Disposition: Home or Self Care 03/13/2025 8:50 AM EST Anesthesia Event [facility] Operating Room [address] [place] [address] Jackeline Wilkes MD Bholat, [facility] 03/13/2025 9:28 AM EST - 03/13/2025 12:19 PM EST Surgery [facility] Operating Room [address] [place] [address] Eagle Quiles DO ENDARTERECTOMY, CAROTID 03/12/2025 4:06 PM EST - 03/12/2025 8:27 PM EST Emergency [facility] Emergency Department [address] [place] [address] Tiffani Lim MD Gilbert, Cody, DO Hyperglycemia (Primary Dx) Discharge Disposition: Home or Self Care 03/12/2025 11:59 PM EST Anesthesia Event [facility] Operating Room [address] [place] [phone] Tani Jeffers MD 03/12/2025 Travel 03/12/2025 1:25 PM EST - 03/12/2025 4:05 PM EST Hospital Encounter [facility] Preadmission Testing [address] [place] [phone] Eagle Quiles DO Preop testing (Primary Dx) Discharge Disposition: Home or Self Care 02/22/2025 9:50 AM EST - 02/22/2025 11:59 PM EST Hospital Encounter [facility] [address] [facility] [address] [place] [address] Eagle Quilse DO Carotid stenosis Discharge Disposition: Home or Self Care from Last 3 Months Allergies Active Allergy Reactions Criticality Noted Date [...] Daily Amount: 20 mg 40 tablet 03/16/20 25 025 Active Problems Problem Noted Date Diagnosed Date More than 50 percent stenosi s of left internal carotid artery 03/13/2025 Stenosis of left internal carotid artery 025 Social History Tobacco Use Types Packs/Day Years Used Date Smoking Tobacco: Former Cigarettes Q uit: 2019 Smokeless Tobacco: Current Tobacco Cessation:Ready to Q uit: Not Asked Comments:Quit on 2018, Vapes daily Alcohol Use Standard Drinks/Week Comments [...] 03/13/2025 7:35 AM EST Plan of Treatment Not on file Medical Devices Implanted Type Area Plater Apprentice Device Identifier Shelf Expiration Date Model / Serial / Lot Ptch Vasc Biologic [id number] [id number] - [id number] Implanted:Qty : 1 on 03/13/2025 by Eagle Quiles DO at [facility] IMPLANTS Left: Carotid Artery LEMAITRE VASCULAR 07/16/2030 [id number] / / [id number] Procedures Procedure Name Priority Date/Time Associated [...] GLUCOSE POC Routine 03/14/2025 6:31 AM EST [facility] CBC SCAN Routine 03/14/2025 3:20 AM EST [...] ANESTHESIA INTUBATION Routine 03/13/2025 9:04 AM EST IA TEAEC W/PATCH GRF CAROTID VERTB SUBCLAV NECK [...] of39 resultswithin the time period is included. [facility] POC-GLUCOSE 198(H) 70 - 110 mg/dL 03/16/2025 12:26 PM EST [facility] Comment:In the event of poor peripheral blood flow, venous or arterial blood should be used due to the potential of erroneous results. Switchman [id number] 03/16/2025 12:26 PM EST [facility] Blood WHOLE BLOOD / Unknown 03/16/2025 12:23 PM EST 03/16/2025 12:26 PM EST Narrative [facility] - 03/16/2025 12:26 PM EST Notified RN/MD us Eagle Etta DO POINT OF CARE TEST ORDERABLES Fi nal Result [facility] [address] [place] [address], [facility] [phone] * (ABNORMAL) CBC with Automated Diff (03/16/2025 7:36 AM EST) Only the most recent of5 resultswithin the time period is included. WBC 8.1 4.0 - 10.0 K/ L 03/16/2025 7:45 AM [facility] RBC 2.79(L) 3.93 - 5.22 M/ L 03/16/2025 7:45 AM [facility] Hemoglobin 8.2(L) 11.2 - 15.7 GM/DL 03/16/2025 7:45 AM [facility] Hematocrit 24.9(L) 34.1 - 44.9 % 03/16/2025 7:45 AM [facility] MCV 89 79 - 95 fL 03/16/2025 7:45 AM [facility] MCH 29.4 25.6 - 32.2 pg 03/16/2025 7:45 AM [facility] MCHC 32.9 32.2 - 35.5 GM/DL 03/16/2025 7:45 AM [facility] RDW 13.2 11.7 - 14.4 % 03/16/2025 7:45 AM [facility] Platelets 187 140 - 375 K/CU MM 03/16/2025 7:45 AM [facility] MPV 9.3(L) 9.4 - 12.3 fL 03/16/2025 7:45 AM [facility] % Neutros 77(H) 34 - 71 % 03/16/2025 7:45 AM [facility] % Lymphs 11(L) 19 - 52 % 03/16/2025 7:45 AM [facility] % Monos 9 5 - 13 % 03/16/2025 7:45 AM [facility] % Eos 2.6 1.0 - 6.0 % 03/16/2025 7:45 AM [facility] % Baso 0 0 - 1 % 03/16/2025 7:45 AM [facility] NRBC Absolute <0.01 0 - 0.012 K/ul 03/16/2025 7:45 AM [facility] # Neutros 6.23(H) 1.56 - 6.13 K/ L 03/16/2025 7:45 AM [facility] # Lymphs 0.87(L) 1.18 - 3.74 K/ L 03/16/2025 7:45 AM [facility] # Monos 0.74 0.24 - 0.86 K/ L 03/16/2025 7:45 AM [facility] # Eos 0.21 0.04 - 0.36 K/ L 03/16/2025 7:45 AM [facility] # Baso <0.03 0.01 - 0.08 K/ L 03/16/2025 7:45 AM [facility] % Imm Grans 0.50(H) 0.01 - 0.43 % 03/16/2025 7:45 AM [facility] # IG 0.04(H) 0.00 - 0.03 K/uL 03/16/2025 7:45 AM [facility] Blood Venipuncture / Unknown 03/16/2025 7:36 AM EST 03/16/2025 7:41 AM EST Narrative [facility] - 03/16/2025 7:45 AM EST When [...] noted Atypical Lymph flag noted us Silvia rAredondoiw LAB BLOOD ORDERABLES Final Resu lt [facility] [address] [phone] * (ABNORMAL) Comprehensive metabolic panel (03/16/2025 7:36 AM EST) Only the most recent of5 resultswithin the time period is included. Sodium 139 136 - 145 meq/L 03/16/2025 7:58 AM [facility] Potassium 3.7 3.4 - 5.1 meq/L 03/16/2025 7:58 AM [facility] Chloride 104 98 - 112 meq/L 03/16/2025 7:58 AM [facility] CO2 24 22 - 29 meq/L 03/16/2025 7:58 AM [facility] Calcium 8.9 8.4 - 10.2 mg/dL 03/16/2025 7:58 AM [facility] Glucose 174(H) 82 - 115 mg/dL 03/16/2025 7:58 AM [facility] BUN 31.0(H) 9.8 - 20.1 mg/dL 03/16/2025 7:58 AM [facility] Creatinine 1.47(H) 0.50 - 1.20 mg/dL 03/16/2025 7:58 AM [facility] BUN/Creatinine 21(H) 8 - 20 03/16/2025 7:58 AM [facility] eGFR (mL/min/1.73m2) 40(L) >=60 mL/min/1.7 3m2 03/16/2025 7:58 AM [facility] Comment:ESTIMATED GFR IS NOT ACCURATE CREATININE CLEARANCE IN PREDICTING GLOMERULAR FILTRATION RATE. ESTIMATED GFR IS NOT APPLICABLE FOR DIALYSIS PATIENTS. Albumin 3.1(L) 3.5 - 5.0 g/dL 03/16/2025 7:58 AM [facility] Alkaline Phosphatase 85 40 - 150 U/L 03/16/2025 7:58 AM [facility] ALT 12 <55 U/L 03/16/2025 7:58 AM [facility] AST 34 5 - 34 U/L 03/16/2025 7:58 AM [facility] Total Bilirubin 0.4 0.3 - 1.2 mg/dL 03/16/2025 7:58 AM EST [facility] Protein, Total 6.6 6.4 - 8.3 g/dL 03/16/2025 7:58 AM EST [facility] Globulin 3.5 2.5 - 4.1 g/dL 03/16/2025 7:58 AM [facility] Anion Gap 15(H) 4 - 12 03/16/2025 7:58 AM [facility] A/G Ratio 0.9 0.7 - 1.9 03/16/2025 7:58 AM [facility] Osmolality Calc 288.3 mOsm/kg 7:58 AM [facility] Blood Venipuncture / Unknown 03/16/2025 7:36 AM EST 03/16/2025 7:41 AM EST Narrative [facility] - 03/16/2025 7:58 AM EST Specimen slightly hemolyzed us Silvia Fowler MD LAB BLOOD ORDERABLES Final Resu lt [facility] [address] [phone] * (ABNORMAL) CBC Scan (03/14/2025 3:20 AM EST) Platelet Estimate Adequate Adequate 025 4:12 AM [facility] RBC Morphology abnormal(A) Normal 4:12 AM [facility] Anisocytosis 1+ 03/14/2025 4:12 AM EST [facility] Hypochromia 1+ 03/14/2025 4:12 AM [facility] Polychromasia 1+ 03/14/2025 4:12 AM [facility] Blood Venipuncture / Unknown 03/14/2025 3:20 AM EST 03/14/2025 3:25 AM EST us Eagle Quiles DO LAB BLOOD ORDERABLES Final Resul t [facility] [address] [phone] * CALCIUM Ionized (03/14/2025 3:20 AM EST) Only the most recent of2 resultswithin the time period is included. Calcium Ionized 1.21 1.12 - 1.32 mmol/L 03/14/2025 3:32 AM EST [facility] Blood Venipuncture / Unknown 03/14/2025 3:20 AM EST 03/14/2025 3:25 AM EST exozet DO LAB BLOOD ORDERABLES Final Resul t Performing Organization Address City/[facility] Co de Phone Number [facility] [address] [phone] * Magnesium (03/14/2025 3:20 AM EST) Only the most recent of3 resultswithin the time period is included. Magnesium 2.4 1.6 - 2.6 mg/dL 03/14/2025 3:52 AM EST [facility] Blood Venipuncture / Unknown 03/14/2025 3:20 AM EST 03/14/2025 3:25 AM EST [email or web address] DO LAB BLOOD ORDERABLES Final Resul t Performing Organization Address City/[facility] Co de Phone Number [facility] [address] [phone] * (ABNORMAL) Blood gas, arterial (03/13/2025 11:25 PM EST) Only the most recent of2 resultswithin the time period is included. pH, Arterial 7.31(L) 7.35 - 7.45 03/13/2025 11:26 PM EST [facility] pCO2, Arterial 43 35 - 45 mm Hg 03/13/2025 11:26 PM EST [facility] pO2, Arterial 75(L) 80 - 100 mm Hg 03/13/2025 11:26 PM EST [facility] HCO3, Arterial 22 20 - 26 mmol/L 03/13/2025 11:26 PM [facility] Base Excess, Arterial -4.1(L) -2.0 - 2.0 mmol/L 03/13/2025 11:26 PM [facility] O2 Sat, Arterial 95.3 95.0 - 100.0 % 03/13/2025 11:26 PM [facility] CTO2 ARTERIAL 11.2 mmol/L 03/13/2025 11:26 PM [facility] THB ARTERIAL 8.4(L) 12.0 - 18.0 g/dL 03/13/2025 11:26 PM [facility] COLLECTION SITE Arterial Line 03/13/2025 11:26 PM [facility] Arterial Puncture No 03/13/2025 11:26 PM [facility] Blood Gas O2 Delivery Device Cannula 03/13/2025 11:26 PM [facility] Oxygen Flow Rate 6 03/13/2025 11:26 PM [facility] Blood Gas PT Temperature C 37.0 03/13/2025 11:26 PM [facility] Daniele's Test Not Applicable 03/13/20 11:26 PM [facility] ABG Number of Draw Attempts 1 03/13/2025 11:26 PM [facility] FIO2 03/13/2025 11:26 PM [facility] Blood Gas Temperature Corrected Results No No 03/13/2025 11:26 PM [facility] Blood, Arterial 03/13/2025 1 1:25 PM EST 03/13/2025 11:26 PM EST us Ozzy Liao ELEMENTARY SCHOOL TEACHER LAB BLOOD ORDERABLES Final Res ult [facility] [address] [place], [place] [address] [phone] * Phosphorus (03/13/2025 9:27 PM EST) Phosphorus 3.9 2.5 - 4.5 mg/dL 03/13/2025 9:57 PM [facility] Blood Venipuncture / Unknown 03/13/2025 9:27 PM EST 03/13/2025 9:31 PM EST Ozzy Liao APRN LAB BLOOD ORDERABLES Final Res ult [facility] [address] [place] [address], [facility] [phone] * XR chest AP portable (03/13/2025 8:26 [...] Dr. Leah Sutherland. Transcribed by Dena Ayala. us Ozzy Liao APRN IMG DIAGNOSTIC IMAGING ORDERAB [...] atheromatous material. No thrombi material is identified. Supervisor Waterproofing sections of calcified areas are submitted in block A1 following decalcification. MTS Tissue PLAQUE / Unknown 03/13/2025 9:46 AM EST us Eagle Quiles DO PATHOLOGY/CYTOLOGY ORDERABLES Fi nal Result Performing Organization Address City/State/[facility] Co de Phone Number [facility] [address] [place] [address] * AN SINGLE LUMEN INTUBATION (03/13/2025 9:04 AM EST) Narrative Reece Whiteside CRNA - 03/13/2025 9:04 AM EST Reece [...] * Arterial Line (03/13/2025 8:30 AM EST) Narrative Reece Whiteside CRNA - 03/13/2025 8:30 AM EST Reece [...] Antibody Screen Negative 03/13/2025 8:00 AM EST [facility] BLOOD [facility] (MS) Blood Venipuncture / Unknown 03/13/2025 7:05 AM EST 03/13/2025 7:30 AM EST us Eagle Quiles DO [facility] BLOOD BANK TEST ORDERABLES F inal Result [facility] BLOOD [facility] (MS) [address] [facility] [address] [place] [address], [facility] [phone] * ABO/Rh (03/13/2025 7:05 AM EST) ABO/Rh A POSITIVE 03/13/2025 8:00 AM EST [facility] BLOOD [facility] (MS) Blood Venipuncture / Unknown 03/13/2025 7:05 AM EST 03/13/2025 7:30 AM EST [facility] TEST ORDERABLES F inal Result Performing Organization Address City/[facility]/ZIP Co de Phone Number [facility] (MS) [address] [facility] [place] [address], [facility] [phone] * Type and Screen (03/13/2025 7:05 AM EST) HISTCHK HIST CHECK PERFORMED 03/13/2025 7:30 AM [facility] (MS) Blood Venipuncture / Unknown 03/13/2025 7:05 AM EST 03/13/2025 7:30 AM EST us Eagle [facility] BLOOD [facility] TEST ORDERABLES F inal Result Performing Organization Address City/[facility]/ZIP Co de Phone Number [facility] (MS) [address] [facility] [place] [address], [facility] [phone] * (ABNORMAL) Urinalysis, Reflex Microscopic and Culture If Indicated (03/12/2025 7:35 PM EST) Color, UA Colorless 03/12/2025 8:30 PM [facility] Clarity, UA Clear Clear 03/12/2025 8:30 PM [facility] Specific [place], UA 1.019 1.005 - 1.030 03/12/2025 8:30 PM [facility] pH, UA 6.0 6.0 - 8.0 03/12/2025 8:30 PM [facility] Leukocytes, UA Negative Negative 03/12/2025 8:30 PM [facility] Nitrite, UA Negative Negative 03/12/2025 8:30 PM [facility] Protein, UA Negative Negative 03/12/2025 8:30 PM [facility] Glucose, UA 4+(A) Normal 03/12/2025 8:30 PM [facility] Ketones, UA Negative Negative 03/12/2025 8:30 PM [facility] Bilirubin, UA Negative Negative 03/12/2025 8:30 PM [facility] Blood, UA Negative Negative 03/12/2025 8:30 PM [facility] Urobilinogen, UA Normal Normal 03/12/2025 8:30 PM [facility] Specimen Source Urine, Clean Catch 03/12/2025 8:30 PM [facility] Urine URINE SPECIMEN COLLECTION, CLEAN CATCH / Unknown 03/12/2025 7:35 PM EST 03/12/2025 7:54 PM EST us Trina Valdez ELEMENTARY SCHOOL TEACHER URINE ORDERABLES Final Result Performing Organization Address City/State/[facility] Co de Phone Number [facility] [address] [place] [address] * (ABNORMAL) CG8+ [place] POC (03/12/2025 6:06 PM EST) PH, [place] POC 7.35 7.31 - 7.41 03/12/2025 6:11 PM [facility] CG8+ PCO2, [place]-POC 43.6 41 - 51 mm/Hg 03/12/2025 6:11 PM [facility] CG8+ PO2, [place]-POC 36 30 - 55 mm/Hg 03/12/2025 6:11 PM [facility] CG8+ HCO3, [place]-POC 24.0 23.0 - 28.0 mmol/L 03/12/2025 6:11 PM [facility] CG8+ BASE EXCESS, [place]-POC -1.0 -2.0 - 3.0 mmol/L 03/12/2025 6:11 PM [facility] CG8+ SODIUM, [place]-POC 134(L) 138 - 146 mmol/L 03/12/2025 6:11 PM [facility] CG8+ POTASSIUM, [place]-POC 3.9 3.5 - 4.9 mmol/L 03/12/2025 6:11 PM [facility] CG8+ GLUCOSE, [place]-POC 511(HH) 70 - 105 mg/dL 03/12/2025 6:11 PM [facility] CG8+ O2 SAT., [place]- POC 67 40 - 85 % 03/12/2025 6:11 PM [facility] POC CO2 TOTAL [place] 26 24 - 29 mmol/L 03/12/2025 6:11 PM [facility] POC HEMATOCRIT [place] 28(L) 38 - 51 %PCV 03/12/2025 6:11 PM [facility] POC HEMOGLOBIN [place] 9.5(L) 12.0 - 17.0 g/dL 03/12/2025 6:11 PM [facility] POC IONIZED CALCIUM [place] 1.00(L) 1.12 - 1.32 mmol/L 03/12/2025 6:11 PM [facility] Switchman [phone] 03/12/2025 6:11 PM [facility] Blood 03/12/2025 6:06 PM EST 03/12/2025 6:11 PM EST us Tiffani Lim MD POINT OF CARE TEST ORDERABLES Final Result Performing Organization Address [facility]/ZIP Co de Phone Number [facility] [address] [place] [address] * ABO/RH Confirmation/Retype (03/12/2025 5:14 PM EST) RETYPE A Positive 03/13/2025 7:41 AM EST [facility] BLOOD BANK (MS) Blood Venipuncture / Unknown 03/12/2025 5:14 PM EST 03/13/2025 7:41 AM EST us Eagle Quiles DO [facility] BLOOD BANK TEST ORDERABLES F inal Result Performing Organization Address [facility]/ZIP Co de Phone Number [facility] BLOOD BANK (MS) [address] [place] [address] * PT/INR, PTT (03/12/2025 2:33 PM EST) aPTT 27.7 22.0 - 32.0 seconds 03/12/2025 2:56 PM EST [facility] Protime 10.1 9.0 - 12.0 seconds 03/12/2025 2:56 PM EST [facility] INR 0.90 0.80 - 1.10 03/12/2025 2:56 PM [facility] Blood Venipuncture / Unknown 03/12/2025 2:33 PM EST 03/12/2025 2:42 PM EST us Eagle Iltis DO LAB BLOOD ORDERABLES Final Resul t [facility] [address] [phone] * (ABNORMAL) Basic Metabolic Panel (03/12/2025 2:33 PM EST) Pathologist [facility] Sodium 129(L) 136 - 145 meq/L 03/12/2025 3:31 PM [facility] Potassium 4.9 3.4 - 5.1 meq/L 03/12/2025 3:31 PM [facility] CO2 25 22 - 29 meq/L 03/12/2025 3:31 PM [facility] Chloride 94(L) 98 - 112 meq/L 03/12/2025 3:31 PM [facility] Glucose 626(HH) 82 - 115 mg/dL 03/12/2025 3:31 PM [facility] BUN 35.0(H) 9.8 - 20.1 mg/dL 03/12/2025 3:31 PM [facility] Creatinine 2.17(H) 0.50 - 1.20 mg/dL 03/12/2025 3:31 PM [facility] BUN/Creatinine 16 8 - 20 03/12/2025 3:31 PM [facility] Calcium 9.4 8.4 - 10.2 mg/dL 03/12/2025 3:31 PM [facility] Anion Gap 15(H) 4 - 12 03/12/2025 3:31 PM EST [facility] eGFR (mL/min/1.73m2) 25(L) >=60 mL/min/1.7 3m2 03/12/2025 3:31 PM EST [facility] Comment:ESTIMATED GFR IS NOT ACCURATE CREATININE CLEARANCE IN PREDICTING GLOMERULAR FILTRATION RATE. ESTIMATED GFR IS NOT APPLICABLE FOR DIALYSIS PATIENTS. Osmolality Calc 296.2 mOsm/kg 3:31 PM EST [facility] Blood Venipuncture / Unknown 03/12/2025 2:33 PM EST 03/12/2025 2:42 PM EST us Eagle Iltis DO LAB BLOOD ORDERABLES Final Resul t Performing Organization Address City/[facility]/ZIP Co de Phone Number [facility] [address] [place] [address] * ECG 12 lead (03/12/2025 1:53 PM EST) VENTRICULAR RATE EKG/MIN 74 BPM GE MUSE ATRIAL RATE (MCT) 74 BPM GE MUSE IA Interval 170 ms GE MUSE QRS-INTERVAL (MSEC) 78 ms GE MUSE QT Interval 500 ms GE MUSE QTC Interval 555 ms GE MUSE P [place] 64 degrees GE MUSE R AXIS (MCT) -7 degrees GE MUSE T Wave [place] 66 degrees GE MUSE [place] Diagnosis Normal sinus rhythm Low voltage QRS [...] and dictated by Ronnie Sandoval MD Eagle Quiles DO IMG CT ORDERABLES Final Result from Last 3 Months Insurance [employer] [id number] [facility] MEDICARE ADVANTAGE Care Teams Investment Broker Relationship Specialty Start Date End Date Fred Solomon MD [address] [employer] [id number] PCP - General Internal Medicine 03/12/25
--- OUTSIDE RECORDS SUMMARY | 2025-04-03 15:02 | XMS_ITS | Encounter Summary ---
Author Organization [facility] Address [address] [place] [address] Care Team Providers Care Extrusion Former Name Role Phone Tin Cutler MD Primary Care Provider [phone] Fred Solomon DO Primary Care Provider [phone] Encounter Details Date Type Department Care Team (Late st Contact Info) Description 06/15/2024 Orders Only External Location [address] [place] [address] Jess Krishna, COMMISSIONS ANALYST [address] [facility] [address] [address] Social History Tobacco Use Types Packs/Day Years [...] Description 04/05/2025 1:00 PM EST Office Visit [facility] [address] [place] [id number] Eagle Egan MD [address] [place] [phone] documented as of this encounter Procedures Procedure Name Priority Date/Time Associated Diagnosis Comments US OUTSIDE IMAGES 06/15/2024 11:08 AM EST documented in this encounter Results * US OUTSIDE IMAGES (06/15/2024 11:08 AM EST) Anatomical Region Laterality Modality Ultrasound 06/15/2024 11:0 8 AM EST us Jess Krishna COMMISSIONS ANALYST IMG US PROCEDURES Jie l Result documented in this encounter Visit Diagnoses Not on filedocumented in this encounter Care Teams Extrusion Former Relationship Specialty Start Date End Date Tin Cutler MD [address] [place], [place] [address] PCP - General 08/29/20 11/12/24 Fred Solomon DO [address] [place] [address] PCP - General 11/13/24 documented as of this encounter
--- OUTSIDE RECORDS SUMMARY | 2025-04-03 15:02 | XMS_ITS | Encounter Summary ---
Author Organization [employer] ([place], [place], [place], [place], [place]) Address [address] [place] [address] Care Team Providers Care Securities Underwriter Name Role Phone Fred Solomon MD Primary Care Provider + Encounter Details Date Type Department Care Team (Latest Contact Info) Description 03/12/2025 Travel Social History Tobacco Use Types Packs/Day [...] on filedocumented in this encounter Care Teams Securities Underwriter Relationship Specialty Start Date End Date Fred Solomon MD [address] [facility] [address] PCP - General Internal Medicine 03/12/25 documented as of this encounter
--- OUTSIDE RECORDS SUMMARY | 2025-04-03 15:02 | XMS_ITS | Encounter Summary ---
Author Organization [facility] Address [address] [place] [address] Care Team Providers Care Hot Blaster Name Role Phone Tin Cutler MD Primary Care Provider [phone] Fred Solomon DO Primary Care Provider [phone] Reason for Referral * Consultation (Routine) - Closed Specialty Diagnoses / Procedures Referred By Naresh t Referred To Contact Nephrology Diagnoses Acute renal failure, unspecified acute renal failure type (CMS/HCC) Fiorella Nichols APRN [address] [address] Phone: tel: fax: [facility] Nephrology, Bone & Mineral Metabolism [address], [address] [place] [address] Phone: tel: fax: Referral ID Status Reason Start Date Expiration Date V isits Requested Visits Authorized [id number] Closed Specialty Services Required 10/03/2024 04/04/2026 1 1 Encounter Details Date Type Department Care Team (Late st Contact Info) Description 10/03/2024 Community [facility] [address] [place] [address] Fiorella Nichols APRN [address] [address] Acute renal failure, unspecified acute [...] Description 04/05/2025 1:00 PM EST Office Visit [facility] [address] [place] [phone] Eagle Egan MD [address] [place] [phone] Scheduled Referrals Name Type Priority Associated Diagnoses Orde r Schedule Ambulatory referral to Nephrology Outpatient Referral Routine Acute renal failure, unspecified acute renal failure type (CMS/HCC) Expected: 10/10/2024, Expires: 04/06/2026 documented as of this encounter Visit Diagnoses Diagnosis Acute renal failure, unspecified acute renal failure type (CMS/HCC)- Primary documented in this encounter Care Teams Hot Blaster Relationship Specialty Start Date End Date Tin Cutler MD [address] [place] [phone] PCP - General 08/29/20 11/12/24 Fred Solomon DO [address] [place] [phone] PCP - General 11/13/24 documented as of this encounter
[2025-04-03 15:06] LABS: Total Iron Binding Capacity 315 ug/dL (265-497)
[2025-04-03 15:33] LABS: Ferritin 45.1 ng/ml (11.1-264)
== END 2025-04-03 23:59 | disposition home or self-care (01) ==
LOC: LAB 13:39
PROVIDERS: PCP Internal Medicine; Visit Provider Internal Medicine Medical Oncology
DX: D64.9 Anemia, unspecified (principal)
CPT/HCPCS: 36415; 82728; 83010; 83540; 83550; 83615; 85044; 86880